=== PATIENT | female | born 1935 | race Caucasian/White ===

== ENCOUNTER 2018-03-28 12:30 | Outpatient (RCR) | payer MEDICARE, BC, SELFPAY ==
--- NOTE | 2018-02-28 08:21 | OT.OP.TRT ---
On February 22, 2018 our therapy services consisting of Speech, Occupational, and Physical therapy transitioned from [employer] electronic documentation system to a new [employer] electronic system. All documentation prior to February 22 can be found under [employer] saved data. From February 22 forward, all medical record documentation will be in [employer] 6.1.
--- NOTE | 2018-03-14 13:42 | OT.OP.TRT ---
Visit Care Team Role Provider Type Idalia Bashir MD Attending Provider Physician Family Provider Primary Care Provider Specialty: Internal Medicine Address: [address] [place] [address], [id number] Email: Occupational Therapy Treatment Note OT Outpatient Treatment Note - Adult Start: 02/28/18 06:33 Freq: Status: Active Protocol: Document 03/14/18 13:27 AMS (Rec: 03/14/18 13:42 AMS [id number]) OT Outpatient Adult Treatment Note Session Time Visit Start Time 12:30 Visit Stop Time 01:20 Total Visit Minutes 50 Visit Information Visit Number 04/[id number] Plan of Care Dates 01/17/2018-04/10/2018 Insurance Information Medicare - G Codes Required Setting Treatment Setting Outpatient Care Visit Type Note Type Treatment Note - Subjective Identification Type Name Identification Reconciled With Medical Record Observations I had a hard time managing the large breakfast sandwich I had ordered down at [employer] per Michela. Chief Complaint(s) Restricts Patient/Caregiver Compliance with Home Good Exercise Program - Objective Objective Measurements Refer to progress towards meeting goals. Short Term Goals 1. Pt will be able to oppose left thumb to all digit pads of the left hand (2-5) x 2 cycles w/ increased time and concentration w/ max v.c. 2. Pt will be able to isolate second and third digits w/ the left hand w/ wrist extended, 8 out of 10 trials, w/ max verbal/visual cues. 02/28/18= Unable to isolate *GOAL MET Pt stacked 5 plates w/ the L hand while seated w/ increased time and mod v.c. for motor planning. *MET= . w/ modification (L hand pushed plate against R hand for stabilization of grasp) *GOAL MET Pt completed 9-Hole Peg Test with left hand under 1 min and 30 seconds. *MET= (1 min 26 sec). Mcc Goals 1. Based on self-report, pt will be drink from personal water bottle utilizing the left hand on daily basis w/ mod I w/ increased time and concentration. 2. Based on self-report, pt will be able to open screw-top containers with the left hand w/ simple meal preparation w/ mod I and increased time and concentration (e.g., opening and closing peanut butter jar) . 03/14/18= NEW GOAL 3. Based on self-report, pt will be able to slice/cut food w/ self-feeding w/ mod I and w/ increased time and concentration w/ active incorporation of the left hand . 03/14/18= 25% of goal met. 4. Pt will be mod I w/ HEP utilizing provided visual and written instructions. 03/14/18= NEW GOAL. 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 MET= *GOAL MET Based on self-report , pt has prepared simple meal for breakfast, with active incorporation of the L hand w/ mod I, w/ increased time and concentration. MET= 03/14/18 - Treatment 4 Descriptor Bimanual coordination Cane Visual Cues Max Cues Verbal Cues Max Cues 3 Descriptor Fine Motor Planning Digit Isolation 9-Hole Peg Test 2 Descriptor Object Manipulation Rotation Translation Shift 1 Descriptor Functional Activities - Self Care Opening and Closing Containers Managing different sized containers/items - Assessment Patient Response to Treatment Good Rehab Potential Good Impairments Identified ADLs Coordination/Dexterity Functional Activities Memory Motor Function Weakness Posture Range of Motion Recreational Activities Meaningful Activities Spasticity Stiffness Motor Planning Eye-Hand Coordination Comment Improving Assessment of Overall Progress Improving Assessment of Improvement Improving functional use of the left hand; this is evidenced by pt meeting goals on treatment date (e.g., including managing associate professor of library science, completing simple meal prep). Improving fine motor coordination; this is evidenced by pt meeting goal for 9-Hole Peg Test. Home Exercise Program Recommended working on opening and closing containers with the left hand (e.g., peanut butter jar). Recommended functional incorporation of the left hand on daily basis. Reviewed with Patient/Caregiver Goals Progress Being Made Home Exercise Program Patient/Caregiver Understanding Good - Plan Therapy Recommendations Advance per Rehabilitation Protocol Decrease Frequency of Rehabilitation Additional Therapy Recommendations Reduce frequency to 1 x every 2 weeks due to insurance limitations Please Sign and Return: I have reviewed this Plan of Care and certify that the skilled therapy services above are required to meet the patient???s needs. Physician Signature Date Printed Name and Credentials Clinical Instructor Signature Printed Name and Credentials
--- NOTE | 2018-03-28 14:57 | OT.OP.DC ---
Visit Care Team Role Provider Type Idalia Bashir MD Attending Provider Physician Family Provider Primary Care Provider Address: [address] [place] [address], [id number] Email: OT Outpatient OT Outpatient Treatment Note - Adult Start: 02/28/18 06:33 Freq: Status: Active Protocol: Document 03/28/18 14:39 AMS (Rec: 03/28/18 14:57 AMS [id number]) OT Outpatient Adult Treatment Note Session Time Visit Start Time 12:35 Visit Stop Time 01:20 Total Visit Minutes 45 Visit Information Visit Number 05/[id number] Plan of Care Dates 01/17/2018-04/10/2018 Insurance Information Medicare - G Codes Required Setting Treatment Setting Outpatient Care Visit Type Note Type Treatment Note - Subjective Identification Type Name Identification Reconciled With Medical Record Observations I feel like this is a good time for me to work on the things you have given me. I just need to make sure I make time to do the exercises per Michela. Chief Complaint(s) Restricts Patient/Caregiver Compliance with Home Good Exercise Program - Objective Objective Measurements See below. 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 Short Term Goals ALL GOALS DISCHARGED; PT DISCHARGING TO HEP: 1. Pt will be able to oppose left thumb to all digit pads of the left hand (2-5) x 2 cycles w/ increased time and concentration w/ max v.c. =25% met. 2. Pt will be able to isolate second and third digits w/ the left hand w/ wrist extended, 8 out of 10 trials, w/ max verbal/visual cues. 03/28/18= Unable *GOALS MET Pt stacked 5 plates w/ the L hand while seated w/ increased time and mod v.c. for motor planning. *MET= 02/28/18 w/ modification (L hand pushed plate against R hand for stabilization of grasp) Pt completed 9-Hole Peg Test w / L hand under 1 min and 30 seconds. *MET= 03/14/18 (1 min 26 sec). Print Shop Manager Goals ALL GOALS DISCHARGED; PT DISCHARGING TO HEP: 1. Based on self-report, pt will be drink from personal water bottle utilizing the left hand on daily basis w/ mod I w/ increased time and concentration. 03/28/18= 25% met . 2. Based on self-report, pt will be able to open screw-top containers with the left hand w/ simple meal preparation w/ mod I and increased time and concentration (e.g., opening and closing peanut butter jar) . 03/28/18= 50% met. 3. Based on self-report, pt will be able to slice/cut food w/ self-feeding w/ mod I and w/ increased time and concentration w/ active incorporation of the left hand . 03/28/18= 25% of goal met. Dependent upon food being cut GOALS MET: Pt mod I w/ HEP utilizing provided visual and written instructions. 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 MET= 03/14/18 Based on self-report, pt has prepared simple meal for breakfast, with active incorporation of the L hand w/ mod I, w/ increased time and concentration. MET= 03/14/18 - Treatment 4 Descriptor Bimanual coordination Cane 3 Descriptor Fine Motor Planning Digit Isolation 2 Descriptor Object Manipulation 1 Descriptor Functional Activities - Self Care - Assessment Patient Response to Treatment Good Rehab Potential Good Impairments Identified ADLs Coordination/Dexterity Functional Activities Memory Motor Function Weakness Posture Range of Motion Recreational Activities Meaningful Activities Spasticity Stiffness Motor Planning Eye-Hand Coordination Comment Improving Assessment of Overall Progress Improving Assessment of Improvement Pt has made progress since time of initial evaluation in the areas of active range of motion, motor coordination, motor planning, and functional use of the left hand. This is evidenced by pt meeting goals in these areas. 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 Pt is currently mod I w/ HEP. It is recommended that pt be discharged to [facility] given yearly insurance limitations. Recommend follow-up as needed/ as prescribed by PCP to upgrade HEP and/or address additional functional limitations identified by pt. Pt in agreement to d/c to [facility] at this time. Home Exercise Program Written instructions provided for current HEP. Copy of HEP placed in paper chart. All questions were answered. Focus on functional activities w/ incorporation of the left hand /upper extremity. Reviewed with Patient/Caregiver Goals Progress Being Made Home Exercise Program Patient/Caregiver Understanding Good - Plan Therapy Recommendations Discharge to Home Exercise Program Discharge from Occupational Therapy Additional Therapy Recommendations Discharge to HEP given insurance restrictions for yr. Focus on current HEP Please Sign and Return: I have reviewed this Plan of Care and certify that the skilled therapy services above are required to meet the patient?s needs. Physician Signature Date Printed Name and Credentials Clinical Instructor Signature Printed Name and Credentials
== END 2018-07-13 14:06 ==
LOC: OT 12:30
PROVIDERS: Family Provider Internal Medicine; PCP Internal Medicine; Visit Provider Internal Medicine
DX: I63.9 Cerebral infarction, unspecified (principal); R27.8 Other lack of coordination; M62.81 Muscle weakness (generalized)
CPT/HCPCS: 97530; 97535

== ENCOUNTER 2018-10-23 10:58 | Emergency (ER) | payer MEDICARE, BC, SELFPAY ==
--- NOTE | 2018-10-23 11:21 | ED.GENADULT ---
HPI - General Adult General Stated complaint: LEG CRAMPS/UNABLE TO GET UP Time Seen by Provider: 10/23/18 11:20
[2018-10-23 11:24] VITALS: BP 162/81; PULSE 105; RESP 20; TEMP 36.6; O2SAT 98
--- NOTE | 2018-10-23 12:03 | PC.NURSE ---
Patient reports two nights of leg cramps waking her up in the middle of the night. Patient has sciatica on right leg which she normally uses marijuana for but has been out of normal stuff for four days reporting increase in pain in right sciatic nerve. Patient also reports concerns of a fungal infection in folds of abd and groin.
[2018-10-23 12:06] LABS: Add Manual Diff / Slide Review NO; Basophils Percent Auto 0.5 % (0-2); Eosinophils Percent Auto 2.5 % (2-4); Hematocrit 41.7 % (36-46); Hemoglobin 14.4 g/dL (12.0-16.0); Lymphocytes Percent Auto 37.8 % (25-40); Mean Corpuscular HGB Conc 34.5 % (30-36); Mean Corpuscular Volume 89.9 fL (80-100); Monocytes Percent Auto 8.7 % (3-14); Neutrophils Absolute Auto 3700 /uL (1500-7000); Neutrophils Percent Auto 50.5 % (50-75); Platelet Count 250 X10^3/uL (150-400); Red Blood Cell Count 4.64 X10^6/uL (4.0-5.2); White Blood Cell Count 7.3 X10^3/uL (4.5-11.0)
--- NOTE | 2018-10-23 12:07 | ED.LOWEXIN ---
HPI - Extremity Injury (Lower) <BALDEMAR Markham - Last Filed: 10/23/18 22:05> General Chief Complaint: Extremity Injury, Lower Stated Complaint: LEG CRAMPS/UNABLE TO GET UP Time Seen by Provider: 10/23/18 11:20 Source: patient Mode of arrival: ambulatory Limitations: no limitations History of Present Illness HPI Narrative: 83-year-old female with history of sciatica and is a nonsmoker here for complaint of having bilateral leg cramps over the past few days at night. She does state that she has had decreased p.o. intake over the past several days due to her power being out. She states that she now has food in the house and has power and is eating better and reports that she may not have been drinking enough fluids. She denies any trauma to the legs. She is able to ambulate into the emergency room. She denies any other concerns or complaints at this time. Review of Systems <BALDEMAR Markham - Last Filed: 10/23/18 22:05> Constitutional Denies chills, Denies fever(s), Denies lethargy and Denies weakness Eyes Denies change in vision, Denies eye discharge, Denies irritation and Denies loss of vision ENT Ears, Nose, Mouth, and Throat: Denies change in voice, Denies neck pain and Denies sore throat Cardiovascular Denies chest pain, Denies irregular heart rhythm, Denies lightheadedness, Denies palpitations, Denies dyspnea, Denies dyspnea on exertion and Denies orthopnea Respiratory Denies cough, Denies dyspnea, Denies dyspnea on exertion and Denies wheezing Gastrointestinal Gastrointestinal: Denies abdominal pain, Denies change in bowel habits, Denies diarrhea, Denies nausea and Denies vomiting Genitourinary Denies hematuria, Denies flank pain, Denies urinary incontinence and Denies urinary urgency Musculoskeletal Denies neck pain Comments: Bilateral lower leg cramps Integumentary/Breasts Denies pruritus, Denies erythema, Denies rash and Denies wounds Neurologic Denies confusion, Denies loss of vision and Denies weakness Psychiatric Denies anxiety, Denies confusion, Denies depression, Denies homicidal ideation and Denies suicidal ideation Endocrine Denies palpitations Hematologic/Lymphatic Denies easy bruising Allergic/Immunologic Denies wheezing Exam <BALDEMAR Markham - Last Filed: 10/23/18 22:05> Initial Vital Signs Initial Vital Signs: Vital Signs Temperature 98 F 10/23/18 11:24 Pulse Rate 105 H 10/23/18 11:24 Respiratory Rate 20 10/23/18 11:24 Blood Pressure 162/81 H 10/23/18 11:24 Pulse Oximetry 98 10/23/18 11:24 Const General: cooperative and well developed Nutritional Appearance: well nourished Orientation: alert, awake, oriented x3 and not confused [facility] Mouth: oral mucosae normal and mucous membranes abnormal Eyes Conjunctivae: conjunctivae normal Sclera: sclerae normal Pupils: PERRL EOM: EOM intact bilaterally Resp Effort & Inspection: normal respiratory effort, able to speak in complete sentences, no respiratory distress and no use of accessory muscles Auscultation: clear to auscultation bilaterally, no rales, no rhonchi and no wheezes Cardio Rate: regular rate Rhythm: regular rhythm Heart Sounds: no click, no gallops, no murmurs and no rubs Pulses: normal peripheral pulses GI Inspection: non-distended Palpation: soft, no hepatosplenomegaly, No guarding, No pulsatile mass and No tender Auscultation: normal bowel sounds Skin General: no rashes or lesions noted, No jaundice and No petechiae Neuro General: alert, oriented x3, gait normal and no focal motor deficits Speech: speech normal Extrem Right lower extremity: normal to inspection, full ROM and normal capillary refill; no edema Left lower extremity: normal to inspection, full ROM and normal capillary refill; no edema Other: Bilateral lower extremities with distal pulses intact. No erythema. No swelling. <Yimi Luna DO - Last Filed: 10/26/18 08:34> Initial Vital Signs Initial Vital Signs: Vital Signs Temperature 98 F 10/23/18 11:24 Pulse Rate 105 H 10/23/18 11:24 Respiratory Rate 20 10/23/18 11:24 Blood Pressure 162/81 H 10/23/18 11:24 Pulse Oximetry 98 10/23/18 11:24 Course <BALDEMAR Markham - Last Filed: 10/23/18 22:05> Orders Ordered: Discontinued Medications Sodium Chloride (Normal Saline 0.9%) 1,000 mls @ 1,000 mls/hr IV BOLUS ONE Stop: 10/23/18 13:13 Last Admin: 10/23/18 12:30 Dose: 1,000 mls/hr Vital Signs - 8 hr 10/23/18 11:24 Temperature 98 F Pulse Rate 105 H Respiratory Rate 20 Blood Pressure 162/81 H Pulse Oximetry 98 <Yimi Luna DO - Last Filed: 10/26/18 08:34> Orders Ordered: Discontinued Medications Sodium Chloride (Normal Saline 0.9%) 1,000 mls @ 1,000 mls/hr IV BOLUS ONE Stop: 10/23/18 13:13 Last Admin: 10/23/18 12:30 Dose: 1,000 mls/hr Vital Signs - 8 hr 10/23/18 11:24 Temperature 98 F Pulse Rate 105 H Respiratory Rate 20 Blood Pressure 162/81 H Pulse Oximetry 98 MDM - Extremity Injury (Lower) <BALDEMAR Markham - Last Filed: 10/23/18 22:05> Lab Data Result diagrams: 10/23/18 12:00 10/23/18 12:00 Lab Results 10/23/18 10/23/18 Range/Units 12:00 12:00 WBC 7.3 (4.5-11.0) X10^3/uL RBC 4.64 (4.0-5.2) X10^6/uL Hgb 14.4 (12.0-16.0) g/dL Hct 41.7 (36-46) % MCV 89.9 (80-100) fL MCH 31.0 (26-34) PG MCHC 34.5 (30-36) % RDW 14.0 (11.6-14.8) % Plt Count 250 (150-400) X10^3/uL Neut % (Auto) 50.5 (50-75) % Lymph % (Auto) 37.8 (25-40) % [place] % (Auto) 8.7 (3-14) % Eos % (Auto) 2.5 (2-4) % Baso % (Auto) 0.5 (0-2) % Neut # (Auto) 3700 (3168-6538) /uL Sodium 142 (137-145) mmol/L Potassium 4.4 (3.4-5.1) mmol/L Chloride 107 (98-107) mmol/L Carbon Dioxide 25 (22-32) mmol/L BUN 15 (7-17) mg/dL Creatinine 1.10 H (0.52-1.04) mg/dL Estimated GFR 47.4 L (>60) mL/min BUN/Creatinine Ratio 13.6 (6-22) Glucose 104 (80-110) mg/dL Calcium 9.7 (8.4-10.2) mg/dL Phosphorus 3.9 (2.8-4.1) mg/dL Magnesium 2.2 (1.6-2.3) mg/dL Total Creatine Kinase 475 H (30-135) U/L Urine Dip Bedside Urine Glucose Negative Bedside Urine Bilirubin - Negative Bedside Urine Ketone - Negative Urine Specific Moore 1.010 Bedside Urine Occult Blood - Negative Bedside Urine pH 6.0 Bedside Urine Protein - Negative Bedside Urine Urobilinogen - Negative Bedside Urine Nitrite - Negative Bedside Urine Leukocytes - Negative Esterase MDM Narrative Medical decision making narrative: CBC was obtained was unremarkable. Chemistry shows elevated creatinine of 1.1 and mildly decreased GFR 47.4. Her CK was elevated at 475. She was given fluids in the emergency room in believe that she has not been drinking enough fluids causing dehydration. She is encouraged to have a balanced diet with plenty of fluids. Follow up with primary care provider this week. Return emergency room for any worsening symptoms. <Yimi Luna, - Last Filed: 10/26/18 08:34> Lab Data Lab Results 10/23/18 10/23/18 Range/Units 12:00 12:00 WBC 7.3 (4.5-11.0) X10^3/uL RBC 4.64 (4.0-5.2) X10^6/uL Hgb 14.4 (12.0-16.0) g/dL Hct 41.7 (36-46) % MCV 89.9 (80-100) fL MCH 31.0 (26-34) PG MCHC 34.5 (30-36) % RDW 14.0 (11.6-14.8) % Plt Count 250 (150-400) X10^3/uL Neut % (Auto) 50.5 (50-75) % Lymph % (Auto) 37.8 (25-40) % [place] % (Auto) 8.7 (3-14) % Eos % (Auto) 2.5 (2-4) % Baso % (Auto) 0.5 (0-2) % Neut # (Auto) 3700 (7769-5474) /uL Sodium 142 (137-145) mmol/L Potassium 4.4 (3.4-5.1) mmol/L Chloride 107 (98-107) mmol/L Carbon Dioxide 25 (22-32) mmol/L BUN 15 (7-17) mg/dL Creatinine 1.10 H (0.52-1.04) mg/dL Estimated GFR 47.4 L (>60) mL/min BUN/Creatinine Ratio 13.6 (6-22) Glucose 104 (80-110) mg/dL Calcium 9.7 (8.4-10.2) mg/dL Phosphorus 3.9 (2.8-4.1) mg/dL Magnesium 2.2 (1.6-2.3) mg/dL Total Creatine Kinase 475 H (30-135) U/L Urine Dip Bedside Urine Glucose Negative Bedside Urine Bilirubin - Negative Bedside Urine Ketone - Negative Urine Specific Moore 1.010 Bedside Urine Occult Blood - Negative Bedside Urine pH 6.0 Bedside Urine Protein - Negative Bedside Urine Urobilinogen - Negative Bedside Urine Nitrite - Negative Bedside Urine Leukocytes - Negative Esterase Discharge Plan Departure Patient Disposition: Home Clinical Impression: Bilateral leg cramps Discharge Date/Time: 10/23/18 13:45 Interventions: ED Discharge Assessment Last Done: 10/23/18 13:45 Instructions: DI for Nocturnal Leg Cramps Activity Restrictions/Additional Instructions: Laboratory results today showed decreased kidney function most likely secondary to dehydration. Ensure you are eating well balanced meals and plenty of fluids. Performs stretching exercises to the calves. Use [id number] Tylenol as needed for any discomfort. Follow up with her primary care provider later this week. Return emergency room for any worsening symptoms. Referrals: Idalia Bashir MD [Primary Care Provider] - <Yimi Luna DO - Last Filed: 10/26/18 08:34> Cosign ED Attending Elanaature Attestation: I was available for consultation during this patient's emergency department encounter
[2018-10-23 12:16] LABS: BUN Creatinine Ratio 13.6 (6-22); Blood Urea Nitrogen 15 mg/dL (7-17); Calcium 9.7 mg/dL (8.4-10.2); Carbon Dioxide 25 mmol/L (22-32); Chloride 107 mmol/L (98-107); Creatine Kinase 475 U/L (30-135); Estimated Glomerular Filt Rate 47.4 mL/min (>60); Glucose 104 mg/dL (80-110); HEMOLYSIS < 15 (0-50); Magnesium 2.2 mg/dL (1.6-2.3); Phosphorous 3.9 mg/dL (2.8-4.1); Potassium 4.4 mmol/L (3.4-5.1); Sodium 142 mmol/L (137-145)
--- NOTE | 2018-10-23 12:17 | ED_ITS ---
HPI - Extremity Injury (Lower) <BALDEMAR Markham - Last Filed: 10/23/18 22:05> General Chief Complaint: Extremity Injury, Lower Stated Complaint: LEG CRAMPS/UNABLE TO GET UP Time Seen by Provider: 10/23/18 11:20 Source: patient Mode of arrival: ambulatory Limitations: no limitations History of Present Illness HPI Narrative: 83-year-old female with history of sciatica and is a nonsmoker here for complaint of having bilateral leg cramps over the past few days at night. She does state that she has had decreased p.o. intake over the past several days due to her power being out. She states that she now has food in the house and has power and is eating better and reports that she may not have been drinking enough fluids. She denies any trauma to the legs. She is able to ambulate into the emergency room. She denies any other concerns or complaints at this time. Review of Systems <BALDEMAR Markham - Last Filed: 10/23/18 22:05> Constitutional Denies chills, Denies fever(s), Denies lethargy and Denies weakness Eyes Denies change in vision, Denies eye discharge, Denies irritation and Denies loss of vision ENT Ears, Nose, Mouth, and Throat: Denies change in voice, Denies neck pain and Denies sore throat Cardiovascular Denies chest pain, Denies irregular heart rhythm, Denies lightheadedness, Denies palpitations, Denies dyspnea, Denies dyspnea on exertion and Denies orthopnea Respiratory Denies cough, Denies dyspnea, Denies dyspnea on exertion and Denies wheezing Gastrointestinal Gastrointestinal: Denies abdominal pain, Denies change in bowel habits, Denies diarrhea, Denies nausea and Denies vomiting Genitourinary Denies hematuria, Denies flank pain, Denies urinary incontinence and Denies urinary urgency Musculoskeletal Denies neck pain Comments: Bilateral lower leg cramps Integumentary/Breasts Denies pruritus, Denies erythema, Denies rash and Denies wounds Neurologic Denies confusion, Denies loss of vision and Denies weakness Psychiatric Denies anxiety, Denies confusion, Denies depression, Denies homicidal ideation and Denies suicidal ideation Endocrine Denies palpitations Hematologic/Lymphatic Denies easy bruising Allergic/Immunologic Denies wheezing Exam <BALDEMAR Markham - Last Filed: 10/23/18 22:05> Initial Vital Signs Initial Vital Signs: Vital Signs Temperature 98 F 10/23/18 11:24 Pulse Rate 105 H 10/23/18 11:24 Respiratory Rate 20 10/23/18 11:24 Blood Pressure 162/81 H 10/23/18 11:24 Pulse Oximetry 98 10/23/18 11:24 Const General: cooperative and well developed Nutritional Appearance: well nourished Orientation: alert, awake, oriented x3 and not confused [facility] Mouth: oral mucosae normal and mucous membranes abnormal Eyes Conjunctivae: conjunctivae normal Sclera: sclerae normal Pupils: PERRL EOM: EOM intact bilaterally Resp Effort & Inspection: normal respiratory effort, able to speak in complete sentences, no respiratory distress and no use of accessory muscles Auscultation: clear to auscultation bilaterally, no rales, no rhonchi and no wheezes Cardio Rate: regular rate Rhythm: regular rhythm Heart Sounds: no click, no gallops, no murmurs and no rubs Pulses: normal peripheral pulses GI Inspection: non-distended Palpation: soft, no hepatosplenomegaly, No guarding, No pulsatile mass and No tender Auscultation: normal bowel sounds Skin General: no rashes or lesions noted, No jaundice and No petechiae Neuro General: alert, oriented x3, gait normal and no focal motor deficits Speech: speech normal Extrem Right lower extremity: normal to inspection, full ROM and normal capillary refill; no edema Left lower extremity: normal to inspection, full ROM and normal capillary refill ; no edema Other: Bilateral lower extremities with distal pulses intact. No erythema. No swelling. <Yimi Luna DO - Last Filed: 10/26/18 08:34> Initial Vital Signs Initial Vital Signs: Vital Signs Temperature 98 F 10/23/18 11:24 Pulse Rate 105 H 10/23/18 11:24 Respiratory Rate 20 10/23/18 11:24 Blood Pressure 162/81 H 10/23/18 11:24 Pulse Oximetry 98 10/23/18 11:24 Course <BALDEMAR Markham - Last Filed: 10/23/18 22:05> Orders Ordered: Discontinued Medications Sodium Chloride (Normal Saline 0.9%) 1,000 mls @ 1,000 mls/hr IV BOLUS ONE Stop: 10/23/18 13:13 Last Admin: 10/23/18 12:30 Dose: 1,000 mls/hr Vital Signs - 8 hr 10/23/18 11:24 Temperature 98 F Pulse Rate 105 H Respiratory Rate 20 Blood Pressure 162/81 H Pulse Oximetry 98 <Yimi Luna DO - Last Filed: 10/26/18 08:34> Orders Ordered: Discontinued Medications Sodium Chloride (Normal Saline 0.9%) 1,000 mls @ 1,000 mls/hr IV BOLUS ONE Stop: 10/23/18 13:13 Last Admin: 10/23/18 12:30 Dose: 1,000 mls/hr Vital Signs - 8 hr 10/23/18 11:24 Temperature 98 F Pulse Rate 105 H Respiratory Rate 20 Blood Pressure 162/81 H Pulse Oximetry 98 MDM - Extremity Injury (Lower) <BALDEMAR Markham - Last Filed: 10/23/18 22:05> Lab Data Result diagrams: 10/23/18 12:00 10/23/18 12:00 Lab Results 10/23/18 10/23/18 Range/Units 12:00 12:00 WBC 7.3 (4.5-11.0) X10^3/uL RBC 4.64 (4.0-5.2) X10^6/uL Hgb 14.4 (12.0-16.0) g/dL Hct 41.7 (36-46) % MCV 89.9 (80-100) fL MCH 31.0 (26-34) PG MCHC 34.5 (30-36) % RDW 14.0 (11.6-14.8) % Plt Count 250 (150-400) X10^3/uL Neut % (Auto) 50.5 (50-75) % Lymph % (Auto) 37.8 (25-40) % [place] % (Auto) 8.7 (3-14) % Eos % (Auto) 2.5 (2-4) % Baso % (Auto) 0.5 (0-2) % Neut # (Auto) 3700 (0216-4271) /uL Sodium 142 (137-145) mmol/L Potassium 4.4 (3.4-5.1) mmol/L Chloride 107 (98-107) mmol/L Carbon Dioxide 25 (22-32) mmol/L BUN 15 (7-17) mg/dL Creatinine 1.10 H (0.52-1.04) mg/dL Estimated GFR 47.4 L (>60) mL/min BUN/Creatinine Ratio 13.6 (6-22) Glucose 104 (80-110) mg/dL Calcium 9.7 (8.4-10.2) mg/dL Phosphorus 3.9 (2.8-4.1) mg/dL Magnesium 2.2 (1.6-2.3) mg/dL Total Creatine Kinase 475 H (30-135) U/L Urine Dip Bedside Urine Glucose Negative Bedside Urine Bilirubin - Negative Bedside Urine Ketone - Negative Urine Specific Len[place] 1.010 Bedside Urine Occult Blood - Negative Bedside Urine pH 6.0 Bedside Urine Protein - Negative Bedside Urine Urobilinogen - Negative Bedside Urine Nitrite - Negative Bedside Urine Leukocytes - Negative Esterase MDM Narrative Medical decision making narrative: CBC was obtained was unremarkable. Chemistry shows elevated creatinine of 1.1 and mildly decreased GFR 47.4. Her CK was elevated at 475. She was given fluids in the emergency room in believe that she has not been drinking enough fluids causing dehydration. She is encouraged to have a balanced diet with plenty of fluids. Follow up with primary care provider this week. Return emergency room for any worsening symptoms. <Yimi Luna, - Last Filed: 10/26/18 08:34> Lab Data Lab Results 10/23/18 10/23/18 Range/Units 12:00 12:00 WBC 7.3 (4.5-11.0) X10^3/uL RBC 4.64 (4.0-5.2) X10^6/uL Hgb 14.4 (12.0-16.0) g/dL Hct 41.7 (36-46) % MCV 89.9 (80-100) fL MCH 31.0 (26-34) PG MCHC 34.5 (30-36) % RDW 14.0 (11.6-14.8) % Plt Count 250 (150-400) X10^3/uL Neut % (Auto) 50.5 (50-75) % Lymph % (Auto) 37.8 (25-40) % [place] % (Auto) 8.7 (3-14) % Eos % (Auto) 2.5 (2-4) % Baso % (Auto) 0.5 (0-2) % Neut # (Auto) 3700 (5094-2246) /uL Sodium 142 (137-145) mmol/L Potassium 4.4 (3.4-5.1) mmol/L Chloride 107 (98-107) mmol/L Carbon Dioxide 25 (22-32) mmol/L BUN 15 (7-17) mg/dL Creatinine 1.10 H (0.52-1.04) mg/dL Estimated GFR 47.4 L (>60) mL/min BUN/Creatinine Ratio 13.6 (6-22) Glucose 104 (80-110) mg/dL Calcium 9.7 (8.4-10.2) mg/dL Phosphorus 3.9 (2.8-4.1) mg/dL Magnesium 2.2 (1.6-2.3) mg/dL Total Creatine Kinase 475 H (30-135) U/L Urine Dip Bedside Urine Glucose Negative Bedside Urine Bilirubin - Negative Bedside Urine Ketone - Negative Urine Specific [place] 1.010 Bedside Urine Occult Blood - Negative Bedside Urine pH 6.0 Bedside Urine Protein - Negative Bedside Urine Urobilinogen - Negative Bedside Urine Nitrite - Negative Bedside Urine Leukocytes - Negative Esterase Discharge Plan Departure Patient Disposition: Home Clinical Impression: Bilateral leg cramps Discharge Date/Time: 10/23/18 13:45 Interventions: ED Discharge Assessment Last Done: 10/23/18 13:45 Instructions: DI for Nocturnal Leg Cramps Activity Restrictions/Additional Instructions: Laboratory results today showed decreased kidney function most likely secondary to dehydration. Ensure you are eating well balanced meals and plenty of fluids. Performs stretching exercises to the calves. Use [id number] Tylenol as needed for any discomfort. Follow up with her primary care provider later this week. Return emergency room for any worsening symptoms. Referrals: Idalia Bashir MD [Primary Care Provider] - <Yimi Luna DO - Last Filed: 10/26/18 08:34> Cosign ED Attending Elanaature Attestation: I was available for consultation during this patient's emergency department encounter
[2018-10-23] MEDS: SODIUM CHLORIDE 0.9% 1,000 ML 1000 ML IV (12:30)
[2018-10-23 13:22] VITALS: BP 141/82; PULSE 93; RESP 17; O2SAT 98
--- NOTE | 2018-12-22 13:26 | PC.NURSE ---
late entry 10/23 NS 1000ML completed 1330.
== END 2018-10-23 13:45 | disposition home or self-care (01) ==
PROVIDERS: Emergency Medicine; Emergency Provider Nurse Practitioner Family; Family Provider Internal Medicine; PCP Internal Medicine
DX: R25.2 Cramp and spasm (principal)
CPT/HCPCS: 36591; 80048; 81003; 82550; 83735; 84100; 85025; 96360; 99283; 99284

== ENCOUNTER 2018-10-30 04:26 | Emergency (ER) | payer MEDICARE, BC, SELFPAY ==
[2018-10-30 04:32] VITALS: BP 160/73; PULSE 104; RESP 16; TEMP 36.9; O2SAT 94; BMI 35.4
--- NOTE | 2018-10-30 04:34 | DI.US.S_ITS ---
PROCEDURE: US PERIPH VENOUS LOW EXTREM RT INDICATIONS: RLQ pain, hx DVT TECHNIQUE: Real-time imaging, as well as color and pulse Doppler interrogation, were performed of the lower extremity deep veins from the inguinal ligament to the popliteal fossa. COMPARISON: None. FINDINGS: The deep veins are normally compressible, and free of intraluminal thrombus. Color and pulse Doppler demonstrate normal phasic intraluminal flow. There is normal augmentation response to distal compression maneuver. IMPRESSION: 1. No evidence of deep venous thrombosis in the right lower extremity. Dictated by: Bob Vale M.D. on 10/30/2018 at 12:41 Approved by: Bob Vale M.D. on 10/30/2018 at 12:41
[2018-10-30] MEDS: SODIUM CHLORIDE 0.9% 1,000 ML 1000 ML IV (04:51)
[2018-10-30 05:06] LABS: Add Manual Diff / Slide Review NO; Basophils Percent Auto 0.4 % (0-2); Eosinophils Percent Auto 2.5 % (2-4); Hematocrit 39.1 % (36-46); Hemoglobin 13.2 g/dL (12.0-16.0); Lymphocytes Percent Auto 38.2 % (25-40); Mean Corpuscular HGB Conc 33.9 % (30-36); Mean Corpuscular Hemoglobin 30.6 PG (26-34); Mean Corpuscular Volume 90.2 fL (80-100); Monocytes Percent Auto 9.9 % (3-14); Neutrophils Absolute Auto 3700 /uL (1500-7000); Platelet Count 234 X10^3/uL (150-400); Red Blood Cell Count 4.33 X10^6/uL (4.0-5.2); White Blood Cell Count 7.5 X10^3/uL (4.5-11.0)
[2018-10-30 05:11] LABS: Creatine Kinase 629 U/L (30-135)
[2018-10-30 05:12] LABS: BUN Creatinine Ratio 16.4 (6-22); Blood Urea Nitrogen 18 mg/dL (7-17); Calcium 9.4 mg/dL (8.4-10.2); Carbon Dioxide 24 mmol/L (22-32); Chloride 105 mmol/L (98-107); Estimated Glomerular Filt Rate 47.4 mL/min (>60); Glucose 117 mg/dL (80-110); HEMOLYSIS < 15 (0-50); Magnesium 2.1 mg/dL (1.6-2.3); Potassium 4.1 mmol/L (3.4-5.1); Sodium 139 mmol/L (137-145)
--- NOTE | 2018-10-30 05:17 | ED_ITS ---
HPI - Extremity Problem General Chief complaint: Extremity Problem,Nontraumatic Stated complaint: LEG PAIN Time Seen by Provider: 10/30/18 04:31 Source: patient Mode of arrival: wheelchair Limitations: no limitations History of Present Illness HPI Narrative: 83-year-old nonsmoking female presents for evaluation of ongoing leg pain and cramping. She was seen and evaluated 1 week ago for similar circumstances in received a very thorough evaluation including labs, physical exam and felt better after receiving IV fluids. She denies any injury, fever or chills. She states her legs began to cramp at night. She is here this evening because she states it is starting to feel like her right leg did when she had a DVT a few years ago. She denies any redness, swelling or warmth. MD Complaint: extremity pain Onset (ago): day(s) Pain Consistency: intermittent Location: right Relieving factors: nothing Exacerbating factors: weight bearing Associated symptoms: denies other symptoms Review of Systems Review of Systems All systems reviewed & are unremarkable except as noted in HPI and below Constitutional Denies chills, Denies fever(s), Denies lethargy and Denies weakness Eyes Denies change in vision, Denies eye discharge, Denies irritation and Denies loss of vision ENT Ears, Nose, Mouth, and Throat: Denies change in voice, Denies neck pain and Denies sore throat Cardiovascular Denies chest pain, Denies irregular heart rhythm, Denies lightheadedness, Denies palpitations, Denies dyspnea, Denies dyspnea on exertion and Denies orthopnea Respiratory Denies cough, Denies dyspnea, Denies dyspnea on exertion and Denies wheezing Gastrointestinal Gastrointestinal: Denies abdominal pain, Denies change in bowel habits, Denies diarrhea, Denies nausea and Denies vomiting Genitourinary Denies hematuria, Denies flank pain, Denies urinary incontinence and Denies urinary urgency Musculoskeletal Reports muscle cramps and Denies neck pain Integumentary/Breasts Denies pruritus, Denies erythema, Denies rash and Denies wounds Neurologic Denies confusion, Denies loss of vision and Denies weakness Psychiatric Denies anxiety, Denies confusion, Denies depression, Denies homicidal ideation and Denies suicidal ideation Endocrine Denies palpitations Hematologic/Lymphatic Denies easy bruising Allergic/Immunologic Denies wheezing [facility] Social History Smoking Status: Never smoker Exam Narrative Exam Narrative: GEN: 83-year-old female appears stated age, she is pleasant but obviously distressed by the discomfort in her legs. EYES: Pupils are equal, round, and reactive to light and accommodation. Extraoccular muscles are intact bilaterally. There is no subconjunctival hemorrhage or exudate. CHEST: Lungs are clear to auscultation bilaterally and free of wheezes, rales, or rhonchi. Heart rate is regular rhythm, there are no murmurs, clicks, rubs, or gallops. There is no chest wall tenderness. ABD: Abdomen is soft and nontender. There is no guarding or rebound. Bowel sounds are normal in all 4 quadrants. There is no mass or organomegaly. EXT: No erythema, swelling, or warmth. Patient has tenderness to palpation of posterior R calf. No tenderness along medial R thigh. No numbness or tingling. No pallor. SKIN: Warm, pink, and dry. No erythema or rash Initial Vital Signs Initial Vital Signs: Vital Signs Temperature 98.5 F 10/30/18 04:32 Pulse Rate 104 H 10/30/18 04:32 Respiratory Rate 16 10/30/18 04:32 Blood Pressure 160/73 H 10/30/18 04:32 Pulse Oximetry 94 10/30/18 04:32 Course Orders Ordered: ED Orders 10/30/18 04:34 US periph venous low extrem rt Stat 10/30/18 04:46 Basic Metabolic Panel Stat C-Reactive Protein Quant Stat Complete Blood Count AUTO DIFF Stat Erythrocyte Sedimentation Rate Stat Magnesium Stat Troponin & CK Cardiac Panel Stat Discontinued Medications Sodium Chloride (Normal Saline 0.9%) 1,000 mls @ 1,000 mls/hr IV BOLUS ONE Stop: 10/30/18 05:31 Last Admin: 10/30/18 04:51 Dose: 1,000 mls/hr Vital Signs - 8 hr 10/30/18 04:32 Temperature 98.5 F Pulse Rate 104 H Respiratory Rate 16 Blood Pressure 160/73 H Pulse Oximetry 94 MDM - Extremity (Nontraumatic) Lab Data Result diagrams: 10/30/18 04:46 10/30/18 04:46 Lab Results 10/30/18 10/30/18 10/30/18 Range/Units 04:46 04:46 04:46 WBC 7.5 (4.5-11.0) X10^3/uL RBC 4.33 (4.0-5.2) X10^6/uL Hgb 13.2 (12.0-16.0) g/dL Hct 39.1 (36-46) % MCV 90.2 (80-100) fL MCH 30.6 (26-34) PG MCHC 33.9 (30-36) % RDW 14.0 (11.6-14.8) % Plt Count 234 (150-400) X10^3/uL Neut % (Auto) 49.0 L (50-75) % Lymph % (Auto) 38.2 (25-40) % Gregory % (Auto) 9.9 (3-14) % Eos % (Auto) 2.5 (2-4) % Baso % (Auto) 0.4 (0-2) % Neut # (Auto) 3700 (2387-3265) /uL ESR 17 (0-20) MM/HR Sodium (137-145) mmol/L Potassium (3.4-5.1) mmol/L Chloride (98-107) mmol/L Carbon Dioxide (22-32) mmol/L BUN (7-17) mg/dL Creatinine (0.52-1.04) mg/dL Estimated GFR (>60) mL/min BUN/Creatinine Ratio (6-22) Glucose (80-110) mg/dL Calcium (8.4-10.2) mg/dL Magnesium (1.6-2.3) mg/dL Total Creatine Kinase 629 H (30-135) U/L CK-MB (CK-2) 4.31 H (<2.37) ng/mL CK-MB (CK-2) Rel Index 0.7 L (1.5-5.0) % Troponin I < 0.012 (0.01-0.034) ng/mL 10/30/18 10/30/18 Range/Units 04:46 04:46 WBC (4.5-11.0) X10^3/uL RBC (4.0-5.2) X10^6/uL Hgb (12.0-16.0) g/dL Hct (36-46) % MCV (80-100) fL MCH (26-34) PG MCHC (30-36) % RDW (11.6-14.8) % Plt Count (150-400) X10^3/uL Neut % (Auto) (50-75) % Lymph % (Auto) (25-40) % Gregory % (Auto) (3-14) % Eos % (Auto) (2-4) % Baso % (Auto) (0-2) % Neut # (Auto) (9332-7176) /uL ESR (0-20) MM/HR Sodium 139 (137-145) mmol/L Potassium 4.1 (3.4-5.1) mmol/L Chloride 105 (98-107) mmol/L Carbon Dioxide 24 (22-32) mmol/L BUN 18 H (7-17) mg/dL Creatinine 1.10 H (0.52-1.04) mg/dL Estimated GFR 47.4 L (>60) mL/min BUN/Creatinine Ratio 16.4 (6-22) Glucose 117 H (80-110) mg/dL Calcium 9.4 (8.4-10.2) mg/dL Magnesium 2.1 (1.6-2.3) mg/dL Total Creatine Kinase (30-135) U/L CK-MB (CK-2) (<2.37) ng/mL CK-MB (CK-2) Rel Index (1.5-5.0) % Troponin I (0.01-0.034) ng/mL Imaging Data US Extremity: Radiologist's impression: No DVT Discharge Plan Departure Patient Disposition: Home Clinical Impression: Acute leg pain Instructions: DI for Leg Pain Activity Restrictions/Additional Instructions: *You have been diagnosed with [ acute Right Leg Pain ] *What to do: *Take medications as directed *Follow up with your primary care provider in 2-3 days, call for an appointment. Let them know you were seen in the Emergency Department and that we ask that you be seen in follow up *Return to ER if you should have any new, worsening or concerning symptoms Referrals: Idalia Bashir MD [Primary Care Provider] -
[2018-10-30 05:25] LABS: Troponin I < 0.012 ng/mL (0.01-0.034)
[2018-10-30 05:26] LABS: CKMB % Relative Index 0.7 % (1.5-5.0); Creatine Kinase MB 4.31 ng/mL (<2.37)
[2018-10-30 05:32] LABS: Erythrocyte Sedimentation Rate 17 MM/HR (0-20)
[2018-10-30 05:48] VITALS: BP 154/86; PULSE 83; RESP 18; O2SAT 94
[2018-10-30 06:44] LABS: C-Reactive Protein Quant < 0.5 mg/dL (<1.0)
== END 2018-10-30 05:40 | disposition home or self-care (01) ==
PROVIDERS: Emergency Provider Emergency Medicine; Family Provider Internal Medicine; PCP Internal Medicine
DX: M79.604 Pain in right leg (principal)
CPT/HCPCS: 36591; 80048; 82550; 82553; 83735; 84484; 85025; 85651; 86140; 93971; 96360; 99283; 99284

== ENCOUNTER → 2019-01-31 08:04 | Outpatient (CLI) | payer MEDICARE, SELFPAY ==
[2019-01-31 09:15] LABS: Hemoglobin A1C% w Est Avg Glu 5.8 % (4.0-6.0)
[2019-01-31 09:55] LABS: Alanine Aminotransferase 24 IU/L (9-52); Aspartate Aminotransferase 22 IU/L (14-36); Blood Urea Nitrogen 16 mg/dL (7-17); Calcium 9.5 mg/dL (8.4-10.2); Carbon Dioxide 27 mmol/L (22-32); Chloride 103 mmol/L (98-107); Cholesterol 179 mg/dL (140-199); Glucose 104 mg/dL (80-110); HEMOLYSIS < 15 (0-50); Potassium 4.5 mmol/L (3.4-5.1); Sodium 140 mmol/L (137-145); Triglycerides 98 mg/dL (35-150)
[2019-01-31 10:11] LABS: HDL Cholesterol 55 mg/dL (40-60); LDL Cholesterol Calculated 104 mg/dL (<100)
== END ==
PROVIDERS: PCP Internal Medicine; Visit Provider Internal Medicine
DX: E78.5 Hyperlipidemia, unspecified (principal); E11.9 Type 2 diabetes mellitus without complications; N18.3 Chronic kidney disease, stage 3 (moderate)
CPT/HCPCS: 36415; 80048; 80061; 83036; 84450; 84460

== ENCOUNTER → 2019-02-21 12:40 | Outpatient (CLI) | payer MEDICARE, SELFPAY | PROVIDERS: PCP Internal Medicine; Visit Provider Internal Medicine | DX: M85.852 Other specified disorders of bone density and structure, left thigh (principal); Z78.0 Asymptomatic menopausal state; E07.9 Disorder of thyroid, unspecified; Z90.722 Acquired absence of ovaries, bilateral | CPT/HCPCS: 77080 ==

== ENCOUNTER → 2019-03-09 12:51 | Outpatient (CLI) | payer MEDICARE, BC, SELFPAY ==
--- NOTE | 2019-03-09 | DI.MRI.S_ITS ---
PROCEDURE: MR LUMBAR SPINE WO CON INDICATIONS: PAIN IN RIGHT HIP TECHNIQUE: Noncontrast sagittal T1 spin echo and T2 fast echo, sagittal STIR, axial T1 and T2 fast spin echo through the lumbar spine. In cases with scoliosis, additional coronal T2 fast spin echo may be performed. COMPARISON: None. FINDINGS: Image quality: Excellent. Alignment and Curvature: There is in grade 1 anterolisthesis of L3 on L4. Bone Marrow: Large Schmorl's node involving inferior endplate of L3 vertebral body is seen. No marrow edema. No acute vertebral body compression fractures. Spinal Cord: Conus medullaris terminates at the T12-L1 level. Visualized cord demonstrates normal signal and size. Paraspinous Soft Tissues: No paravertebral masses. L1-L2: Diffuse disc bulge, bilateral facet arthrosis and hypertrophy of ligamentum flavum is seen. Decreased intervertebral disc space and disc desiccation signal is also noted. There is moderate central canal stenosis and left worse than right bilateral neuroforaminal narrowing. There is likely compression of the exiting left L1 nerve root. L2-L3: Decreased intervertebral disc space and desiccation signal is seen. Broad-based disc bulge and bilateral facet arthrosis with hypertrophy of ligamentum flavum is noted. There is mild to moderate central canal stenosis and mild bilateral neuroforaminal narrowing. L3-L4: There is decreased intervertebral disc space and disc desiccation. Broad-based disc bulge and bilateral facet arthrosis with hypertrophy of ligamentum flavum is seen causing severe central canal stenosis and left worse than right bilateral neuroforaminal narrowing. There is likely compression of bilateral L3 and L4 nerve roots. L4-L5: There is near-complete loss of intervertebral disc space and partial bony union at this level. Bilateral facet arthrosis and hypertrophy of ligamentum flavum is seen causing mild/moderate central canal stenosis and mild bilateral neuroforaminal narrowing. L5-S1: Normal appearance. IMPRESSION: 1. 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 No acute compression fracture. A large Schmorl's node in inferior endplate of L3. Partial bony union at L4-5 level. 2. Degenerative disc bulge and bilateral facet arthrosis throughout lumbar spine causing moderate to severe central canal stenosis and bilateral neuroforaminal narrowing most prominent at L3-4 level as above. Dictated by: Momo Chawla M.D. on 03/09/2019 at 14:22 Approved by: Momo Chawla M.D. on 03/09/2019 at 14:37
== END ==
PROVIDERS: PCP Internal Medicine; Visit Provider Orthopaedic Surgery
DX: M25.551 Pain in right hip (principal); M47.816 Spondylosis without myelopathy or radiculopathy, lumbar region; M48.061 Spinal stenosis, lumbar region without neurogenic claudication; M51.36 Other intervertebral disc degeneration, lumbar region; M51.46 Schmorl's nodes, lumbar region; M43.16 Spondylolisthesis, lumbar region
CPT/HCPCS: 72148

== ENCOUNTER 2019-05-23 20:23 | Observation (INO) | payer MEDICARE, BC, SELFPAY ==
--- NOTE | 2019-05-23 | DI.ECHO.S_ITS ---
[place] +---------+ Hospital +---------+ : : [address] : : : : [id number] : : : : Phone: [phone] Echocardiogram Report + + :Name: ANITA FRANKLIN Study Date: 05/24/2019 Height: 63 in : :[facility] Weight: 220 lb : : Gender: Female BSA: 2.0 m2 : :: 1935 Age: 83 yrs BP: 128/81 mmHg: :Reason For Study: SYNCOPAL EPISODE : :Ordering Physician: Suresh : :Hospitalist Performed By: Deepa Whitt : :Referring: JELANI LEVIN : + + Interpretation Summary The left ventricular cavity is small. Left ventricular systolic function is normal without focal wall motion abnormalities. The ejection fraction is estimated to be 65-70%. LV ejection fraction has remained stable since prior study. Diastolic parameters suggest a relaxation abnormality of the left ventricle, consistent with probable normal filling pressures. The right ventricle grossly appears normal in size with probable normal systolic function. Right ventricular systolic pressure is estimated to be 19 mmHg plus the clinically estimated CVP which cannot be estimated on this exam. The left atrial size is normal. Right atrial size is normal. There is mild aortic stenosis. The calculated aortic valve area is 1.6 cm2. There has been no significant change since the previous study. There is no other significant valvular heart disease. The aortic root is normal size. Procedure: A two-dimensional transthoracic echocardiogram with color flow and Doppler was performed. The study quality was technically difficult. Comparison is made with the echocardiogram of 11/29/17. The patient was in normal sinus rhythm during the exam. Left Ventricle: The left ventricular cavity is small. Proximal septal thickening is noted. Left ventricular systolic function is normal without focal wall motion abnormalities. The ejection fraction is estimated to be 65- 70%. Diastolic parameters suggest a relaxation abnormality of the left ventricle, consistent with probable normal filling pressures. Right Ventricle: The right ventricle grossly appears normal in size with probable normal systolic function. Atria: The left atrial size is normal. Right atrial size is normal. There is no Doppler evidence for an interatrial shunt. Mitral Valve: The mitral valve leaflets appear mildly thickened, but open well. There is moderate mitral annular calcification. There is trace mitral regurgitation. Aortic Valve: The aortic valve is not well visualized. The aortic valve is mildly calcified. There is mildly reduced leaflet mobility. There is mild aortic stenosis. The calculated aortic valve area is 1.6 cm2. There has been no significant change since the previous study. The peak aortic velocity is 2.7 m/sec. The peak aortic velocity on the previous exam was 2.4 m/sec. The aortic valve mean gradient is 16 mmHg. No aortic regurgitation is present. Tricuspid Valve: The tricuspid valve is normal. There is trace tricuspid regurgitation. Right ventricular systolic pressure is estimated to be 19 mmHg plus the clinically estimated CVP which cannot be estimated on this exam. Pulmonic Valve: The pulmonic valve is not well seen, but is grossly normal. There is trace pulmonic regurgitation. There is no other significant valvular heart disease. Great Vessels: The aortic root is normal size. The ascending aorta is normal in size. The aortic arch is normal in size. The pulmonary is not well visualized. The inferior vena cava was not visualized. Pericardium/ Pleura There is no pericardial effusion. There is no pleural effusion. MMode/2D Measurements & Calculations LVIDd: 3.3 cm LVOT diam: 2.0 cm LVIDs: 2.1 cm Ao root diam: 3.2 cm FS: 34.2 % asc Aorta Diam: 3.2 cm EPSS: 0.30 cm Ao Arch Diam (Prox Trans): 2.9 cm IVSd: 1.1 cm LVPWd: 0.92 cm LV diaz. diameter/BSA (cm/m^2): 1.6 LV sys. diameter/BSA (cm/m^2): 1.1 LA A2 area: 20.7 cm2 RA long axis: 4.3 cm LA A4 area: 19.9 cm2 RA area: 14.3 cm2 LA length (vol): 5.0 cm RA vol: 39.9 ml LA vol: 69.8 ml RA : 19.8 ml/m2 LA vol index: 34.7 ml/m2 TAPSE: 2.1 cm Doppler Measurements & Calculations Ao V2 max: 269.2 cm/sec LVOT Max Momo: 127.7 cm/sec Ao V2 mean: 190.9 cm/sec LV V1 max P.5 mmHg Ao max P.0 mmHg LV V1 VTI: 30.2 cm Ao mean P.4 mmHg ROBERT(I,D): 1.6 cm2 Ao V2 VTI: 60.4 cm ROBERT(V,D): 1.5 cm2 sev ratio: 0.50 ROBERT indexed to BSA (cm^2/m^2): 0.78 MV E max momo: 79.7 cm/sec TR max momo: 217.0 cm/sec MV A max momo: 124.6 cm/sec TR max P.8 mmHg MV E/A: 0.64 PA V2 max: 102.6 cm/sec Med Peak E' Momo: 4.4 cm/sec PA V2 mean: 67.3 cm/sec E/E' med: 18.2 PA mean P.0 mmHg Lat Peak E' Momo: 5.7 cm/sec PA Accel Time: 0.06 sec E/E' lat: 14.0 E/e' average: 16.1 MV dec time: 0.27 sec MVA(VTI): 3.7 cm2 MV V2 mean: 101.4 cm/sec SV(LVOT): 95.3 ml MV mean P.3 mmHg MV V2 VTI: 25.9 cm Reading Physician:12:[id number] PM
--- NOTE | 2019-05-23 20:24 | DI.CT.S_ITS ---
PROCEDURE: CT HEAD/BRAIN WO CON INDICATIONS: Code stroke TECHNIQUE: Noncontrast 4.5 mm thick angled axial sections acquired from the foramen magnum to the vertex, with coronal and sagittal reformats. For radiation dose reduction, the following was used: automated exposure control, adjustment of mA and/or kV according to patient size. COMPARISON: [facility], CT, BRAIN (TPA), 04/10/2016, 11:04. [facility], MR, MR STROKE PROTOCOL, 04/10/2016, 17:08. FINDINGS: Image quality: Excellent. CSF spaces: Basal cisterns are patent. No extra-axial fluid collections. The ventricles are symmetric in size and shape. Brain: There is a large area of old cerebral infarct in the right frontoparietal lobe, which has increased since 04/10/2016. No intracranial bleeds or masses. There is mild cerebral volume loss for age, with resultant ventricular and sulcal prominence. There are moderate periventricular and deep white matter chronic small vessel ischemic changes. There is intracranial internal carotid artery atherosclerosis. Skull and face: Calvarium and visualized facial bones appear intact, without suspicious lesions. Sinuses: Visualized sinuses and mastoids are clear. IMPRESSION: 1. No acute intracranial abnormalities. No intracranial bleed. 2. A large old MCA infarct involving right frontoparietal lobe, which is increased since the last exam. 3. Cerebral volume loss and chronic microvascular ischemic changes. The result was discussed with Dr. Luna on 05/23/2019 at 2138 hours. Dictated by: Facundo El M.D. on 05/23/2019 at 20:35 Approved by: Facundo El M.D. on 05/23/2019 at 20:41
--- NOTE | 2019-05-23 20:27 | DI.CT.S_ITS ---
PROCEDURE: CT ANGIO HEAD AND NECK INDICATIONS: Code stroke TECHNIQUE: Pre-contrast 4.5 mm thick sections acquired from the foramen magnum to the vertex. After the administration of intravenous contrast, 1 mm thick sections acquired from the aortic arch through the [place] of Shrestha. Post-contrast 4.5 mm thick sections then re-acquired from the foramen magnum to the vertex. 3-dimensional mjvtfev-elwxgxjsy-rjmmivxjro (MIP) and/or volume rendering reformats were acquired of the central intracranial vasculature and neck separately. COMPARISON: [facility], , MR STROKE PROTOCOL, 04/10/2016, 17:08. FINDINGS: Image quality: There are motion artifacts and metallic artifacts from dentures. BRAIN: CSF spaces: Ventricles are normal in size and shape. Basal cisterns are patent. No extra-axial fluid collections. Brain: There is a large cold right MCA infarct. No midline shift. No intracranial bleeds or masses. Phelps-white matter interface appears intact. Skull and face: Calvarium and facial bones appear intact, without suspicious lesions. Orbits appear normal. Sinuses: Sinuses and mastoids are clear. HEAD CT ANGIOGRAPHY: Anterior circulation: Intracranial internal carotid arteries are normal in size and flow. The flow within the paired anterior cerebral arteries is normal and symmetric. The flow within the middle cerebral arteries is normal and symmetric. The anterior communicating artery is seen. No aneurysms are seen. Posterior circulation: Visualized portions of the vertebral arteries demonstrate normal caliber, and join to form a normal appearing basilar artery. Flow within the posterior cerebral arteries is normal and symmetric. No aneurysms are seen. NECK CT ANGIOGRAPHY: Carotid system: The great vessels demonstrate a conventional anatomy as they arise from the aortic arch. The origins of the common carotid arteries appear patent. The common carotid arteries demonstrate normal caliber and courses. There is dense calcification and high grade stenosis to near occlusion in the carotid bifurcations bilaterally. More distal internal carotid arteries demonstrate normal calibers and courses. Posterior circulation: The origins of the vertebral arteries both appear widely patent. The more superior extracranial portions of both vertebral arteries also demonstrate normal courses and calibers. They join to form a normal appearing basilar artery. Soft tissues: Visualized neck soft tissues demonstrate no suspicious abnormalities. Bones: No suspicious bony lesions. Visualized cervical spine appears normally aligned. There is severe degenerative disease seen cervical spine. IMPRESSION: 1. No acute intracranial abnormalities. 2. There is a large old MCA infarct in the right hemisphere. 3. No high-grade stenosis or occlusion in anterior intracranial circulations. 4. No high-grade stenosis or occlusion in posterior intracranial circulations. 5. 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 6. No high-grade stenosis or occlusion in cervical vertebral arteries bilaterally. Any quantitative measurements of stenosis were performed using NASCET criteria. Dictated by: Facundo El M.D. on 05/23/2019 at 21:19 Approved by: Facundo El M.D. on 05/23/2019 at 21:30
--- NOTE | 2019-05-23 20:31 | ED.AMS ---
HPI - Altered Mental Status General Chief Complaint: Altered Mental Status Stated Complaint: Slurred Speech Time Seen by Provider: 05/23/19 20:23 Source: patient and EMS Mode of arrival: EMS Limitations: no limitations History of Present Illness HPI narrative: 83-year-old female. Patient with reported history of 2 prior CVAs. The 1st being 5 years ago and the 2nd being ?a couple years after that ?patient is unsure when the 2nd one was. Patient states she has had TIAs in the past. Not on blood thinners. Only residual deficit from her prior CVAs is left upper extremity weakness for which she sees occupational therapy and physical therapy. This evening's report was that approximately 1950 patient had a sudden onset of slurring her words. She was sitting on her couch watching TV at the time. She did state that she had some vodka prior to the onset of the symptoms. There was no other reported associated symptoms. Symptoms lasting less than 60 minutes She was with a friend whom with she lives at the time. EMS was called. They reported that they had no other findings on their exam except for slurring of the words. Blood sugar greater than 90 prior to arrival. Patient immediately went for a CT scan of the head and a CTA. When she was brought back to the room patient reported no symptoms. Review of Systems Constitutional Denies fever(s), Denies headache(s) and Denies weakness Eyes Denies change in vision and Denies diplopia ENT Ears, Nose, Mouth, and Throat: Denies vertigo, Denies dizziness, Denies headache(s) and Denies disequilibrium Cardiovascular Denies chest pain, Denies syncope, Denies palpitations and Denies dyspnea Respiratory Denies cough and Denies dyspnea Gastrointestinal Gastrointestinal: Denies abdominal pain, Denies nausea and Denies vomiting Genitourinary Denies dysuria Musculoskeletal Denies myalgias, Denies arthralgias, Denies numbness and Denies tingling Integumentary/Breasts Denies lesions and Denies rash Neurologic Reports abnormal speech, Denies behavioral changes, Denies confusion, Denies vertigo, Denies dizziness, Denies syncope, Denies headache(s), Denies focal weakness, Denies numbness, Denies tingling, Denies paresthesias, Denies disequilibrium and Denies weakness Comments: Slurring words Psychiatric Denies behavioral changes and Denies confusion Endocrine Denies palpitations Hematologic/Lymphatic Denies easy bleeding and Denies easy bruising Exam Initial Vital Signs Initial Vital Signs: Vital Signs Temperature 98.4 F 05/23/19 21:00 Pulse Rate 80 05/23/19 21:00 Respiratory Rate 12 05/23/19 21:00 Blood Pressure 134/79 05/23/19 21:00 Pulse Oximetry 98 05/23/19 21:00 Const General: cooperative, comfortable, well developed, well groomed and No acute distress Orientation: alert, awake and oriented x3 HENMT Head: normal to inspection and normocephalic Resp Effort & Inspection: normal respiratory effort Auscultation: clear to auscultation bilaterally Cardio Rate: regular rate Rhythm: regular rhythm Pulses: radial pulses present GI Inspection: non-distended Palpation: soft, No firm and No tender Skin Lesions: no lesions Rashes: no rashes Neuro General: alert, awake and oriented x3 Cranial Nerves: CN's II-XI intact bilaterally Cognition: normal cognition Speech: speech normal Motor: muscle tone normal throughout Sensory Exam: no sensory deficits noted Coordination: bagqns-wv-jxxx test normal Extrem General: normal to inspection and capillary refill normal Psych Appearance: grossly normal and well kempt Scores GCS [place] coma scale eye opening: Spontaneous [place] coma scale verbal response: Orientated Rodolfo coma scale motor response: Obey commands [place] coma scale total score: 15 NIH Stroke Scale Level of Conciousness: Alert, keenly responsive Ask month/age: Answers both questions correctly. Open/close eyes, close hand: Performs both tasks correctly Best gaze horizontal: Normal Visual king: No visual loss Facial palsy: Normal symetrical movement Left arm drift: No drift for full 10 sec Right arm drift: No drift for full 10 sec Left leg drift: No drift for full 10 sec Right leg drift: No drift for full 10 sec Limb ataxia: Absent Sensory on face/arms/legs: Normal, no sensory loss Best language: No aphasia, normal Dysarthria: Normal Extinction or inattention: No abnormality Total NIH Stroke scale score: 0 Course Orders Ordered: ED Orders 05/23/19 20:20 Complete Blood Count AUTO DIFF Stat Comprehensive Metabolic Panel Stat Ethanol (ETOH) Stat Lipase Stat Troponin I Stat 05/23/19 20:24 CT head/brain wo con Stat EKG-12 Lead Stat 05/23/19 20:27 CT angio head and neck Stat 05/23/19 21:00 Partial Thromboplastin Time Stat Prothrombin Time INR Stat Sodium Chloride (Normal Saline 0.9%) 1,000 mls @ 125 mls/hr IV CONT AUSTYN Last Admin: 05/23/19 21:41 Dose: 125 mls/hr Discontinued Medications Aspirin (Aspirin Chew) 324 mg PO NOW ONE Stop: 05/23/19 22:07 Last Admin: 05/23/19 22:13 Dose: 324 mg Vital Signs - 8 hr 05/23/19 21:00 05/23/19 21:05 05/23/19 21:43 Temperature 98.4 F Pulse Rate 80 75 75 Respiratory Rate 12 15 17 Blood Pressure 134/79 Blood Pressure [Right Arm] 119/71 99/54 L Pulse Oximetry 98 98 94 05/23/19 22:00 Temperature Pulse Rate 73 Respiratory Rate 18 Blood Pressure Blood Pressure [Right Arm] 107/65 Pulse Oximetry 95 MDM - Altered Mental Status Lab Data Attestation: I reviewed the patient's lab results. Result diagrams: 05/23/19 20:20 05/23/19 20:20 Lab Results 05/23/19 05/23/19 05/23/19 Range/Units 20:20 20:20 20:20 WBC 8.8 (4.5-11.0) X10^3/uL RBC 4.47 (4.0-5.2) X10^6/uL Hgb 13.6 (12.0-16.0) g/dL Hct 41.5 (36-46) % MCV 93.0 (80-100) fL MCH 30.3 (26-34) PG MCHC 32.6 (30-36) % RDW 13.8 (11.6-14.8) % Plt Count 224 (150-400) X10^3/uL Neut % (Auto) 42.3 L (50-75) % Lymph % (Auto) 45.7 H (25-40) % Towns % (Auto) 8.7 (3-14) % Eos % (Auto) 3.0 (2-4) % Baso % (Auto) 0.3 (0-2) % Neut # (Auto) 3700 (1939-1769) /uL Lymph # (Auto) 4000 (8971-6500) /uL Towns # (Auto) 800 (0-900) /uL Eos # (Auto) 300 (0-450) /uL Baso # (Auto) 0 (0-100) /uL PT (10.1-12.7) SECONDS INR (0.9-1.3) APTT (26.4-36.2) SECONDS Sodium 140 (137-145) mmol/L Potassium 4.2 (3.4-5.1) mmol/L Chloride 105 (98-107) mmol/L Carbon Dioxide 23 (22-32) mmol/L BUN 16 (7-17) mg/dL Creatinine 0.90 (0.52-1.04) mg/dL Estimated GFR 59.8 L (>60) mL/min BUN/Creatinine Ratio 17.8 (6-22) Glucose 98 (80-110) mg/dL Calcium 9.4 (8.4-10.2) mg/dL Total Bilirubin 0.6 (0.2-1.3) mg/dL AST 30 (14-36) IU/L ALT 11 (9-52) IU/L Alkaline Phosphatase 73 (38-126) U/L Troponin I < 0.012 (0.01-0.034) ng/mL Total Protein 8.1 (6.3-8.2) g/dL Albumin 4.2 (3.5-5.0) g/dL Globulin 3.9 (1.7-4.1) g/dL Albumin/Globulin Ratio 1.1 (1.0-2.8) Lipase 84 (23-300) U/L Ethyl Alcohol 132 mg/dL 05/23/19 Range/Units 21:00 WBC (4.5-11.0) X10^3/uL RBC (4.0-5.2) X10^6/uL Hgb (12.0-16.0) g/dL Hct (36-46) % MCV (80-100) fL MCH (26-34) PG MCHC (30-36) % RDW (11.6-14.8) % Plt Count (150-400) X10^3/uL Neut % (Auto) (50-75) % Lymph % (Auto) (25-40) % Towns % (Auto) (3-14) % Eos % (Auto) (2-4) % Baso % (Auto) (0-2) % Neut # (Auto) (9374-7525) /uL Lymph # (Auto) (1740-4812) /uL Towns # (Auto) (0-900) /uL Eos # (Auto) (0-450) /uL Baso # (Auto) (0-100) /uL PT 11.2 (10.1-12.7) SECONDS INR 1.0 (0.9-1.3) APTT 33 (26.4-36.2) SECONDS Sodium (137-145) mmol/L Potassium (3.4-5.1) mmol/L Chloride (98-107) mmol/L Carbon Dioxide (22-32) mmol/L BUN (7-17) mg/dL Creatinine (0.52-1.04) mg/dL Estimated GFR (>60) mL/min BUN/Creatinine Ratio (6-22) Glucose (80-110) mg/dL Calcium (8.4-10.2) mg/dL Total Bilirubin (0.2-1.3) mg/dL AST (14-36) IU/L ALT (9-52) IU/L Alkaline Phosphatase (38-126) U/L Troponin I (0.01-0.034) ng/mL Total Protein (6.3-8.2) g/dL Albumin (3.5-5.0) g/dL Globulin (1.7-4.1) g/dL Albumin/Globulin Ratio (1.0-2.8) Lipase (23-300) U/L Ethyl Alcohol mg/dL Point of Care Testing Glucose POC [address] scan - head: Radiologist's impression: [place] [address] CT Scan Report Signed Patient: Michela Cao LMR#: [id number] : 5Acct:[id number] Age/Sex: 83 / FDate of Service: 05/23/19 Loc: ED Accession Number: [id number] Procedure: CT head/brain wo con Ordering Provider: Yimi Luna D.O. PROCEDURE: CT HEAD/BRAIN WO CON INDICATIONS: Code stroke TECHNIQUE: Noncontrast 4.5 mm thick angled axial sections acquired from the foramen magnum to the vertex, with coronal and sagittal reformats. For radiation dose reduction, the following was used: automated exposure control, adjustment of mA and/or kV according to patient size. COMPARISON: [facility], CT, BRAIN (TPA), 04/10/2016, 11:04. [facility], MR, MR STROKE PROTOCOL, 04/10/2016, 17:08. FINDINGS: Image quality: Excellent. CSF spaces: Basal cisterns are patent. No extra-axial fluid collections. The ventricles are symmetric in size and shape. Brain: There is a large area of old cerebral infarct in the right frontoparietal lobe, which has increased since 04/10/2016. No intracranial bleeds or masses. There is mild cerebral volume loss for age, with resultant ventricular and sulcal prominence. There are moderate periventricular and deep white matter chronic small vessel ischemic changes. There is intracranial internal carotid artery atherosclerosis. Skull and face: Calvarium and visualized facial bones appear intact, without suspicious lesions. Sinuses: Visualized sinuses and mastoids are clear. IMPRESSION: 1. No acute intracranial abnormalities. No intracranial bleed. 2. A large old MCA infarct involving right frontoparietal lobe, which is increased since the last exam. 3. Cerebral volume loss and chronic microvascular ischemic changes. The result was discussed with Dr. Luna on 05/23/2019 at 2138 hours. Dictated by: Facundo El M.D. on 05/23/2019 at 20:35 Approved by: Facundo El M.D. on 05/23/2019 at 20:41 CTA head and neck: Radiologist's impression: KenMichela estrada Michelle 83 F [address] [place] [address] CT Scan Report Signed Patient: Michela Cao LMR#: [id number] : 5Acct:[id number] Age/Sex: 83 / FDate of Service: 05/23/19 Loc: ED Accession Number: [id number] Procedure: CT angio head and neck Ordering Provider: Yimi Luna D.O. PROCEDURE: CT ANGIO HEAD AND NECK INDICATIONS: Code stroke TECHNIQUE: Pre-contrast 4.5 mm thick sections acquired from the foramen magnum to the vertex. After the administration of intravenous contrast, 1 mm thick sections acquired from the aortic arch through the [place] of Shrestha. Post-contrast 4.5 mm thick sections then re-acquired from the foramen magnum to the vertex. 3-dimensional ypodcfu-dmetheqpm-tyyogoxdqh (MIP) and/or volume rendering reformats were acquired of the central intracranial vasculature and neck separately. COMPARISON: [facility], , MR STROKE PROTOCOL, 04/10/2016, 17:08. FINDINGS: Image quality: There are motion artifacts and metallic artifacts from dentures. BRAIN: CSF spaces: Ventricles are normal in size and shape. Basal cisterns are patent. No extra-axial fluid collections. Brain: There is a large cold right MCA infarct. No midline shift. No intracranial bleeds or masses. Phelps-white matter interface appears intact. Skull and face: Calvarium and facial bones appear intact, without suspicious lesions. Orbits appear normal. Sinuses: Sinuses and mastoids are clear. HEAD CT ANGIOGRAPHY: Anterior circulation: Intracranial internal carotid arteries are normal in size and flow. The flow within the paired anterior cerebral arteries is normal and symmetric. The flow within the middle cerebral arteries is normal and symmetric. The anterior communicating artery is seen. No aneurysms are seen. Posterior circulation: Visualized portions of the vertebral arteries demonstrate normal caliber, and join to form a normal appearing basilar artery. Flow within the posterior cerebral arteries is normal and symmetric. No aneurysms are seen. NECK CT ANGIOGRAPHY: Carotid system: The great vessels demonstrate a conventional anatomy as they arise from the aortic arch. The origins of the common carotid arteries appear patent. The common carotid arteries demonstrate normal caliber and courses. There is dense calcification and high grade stenosis to near occlusion in the carotid bifurcations bilaterally. More distal internal carotid arteries demonstrate normal calibers and courses. Posterior circulation: The origins of the vertebral arteries both appear widely patent. The more superior extracranial portions of both vertebral arteries also demonstrate normal courses and calibers. They join to form a normal appearing basilar artery. Soft tissues: Visualized neck soft tissues demonstrate no suspicious abnormalities. Bones: No suspicious bony lesions. Visualized cervical spine appears normally aligned. There is severe degenerative disease seen cervical spine. IMPRESSION: 1. No acute intracranial abnormalities. 2. There is a large old MCA infarct in the right hemisphere. 3. No high-grade stenosis or occlusion in anterior intracranial circulations. 4. No high-grade stenosis or occlusion in posterior intracranial circulations. 5. High-grade ufnpuoyr-dy-zkfy occlusion at the carotid bifurcations bilaterally. 6. No high-grade stenosis or occlusion in cervical vertebral arteries bilaterally. Any quantitative measurements of stenosis were performed using NASCET criteria. Dictated by: Facundo El M.D. on 05/23/2019 at 21:19 Approved by: Facundo El M.D. on 05/23/2019 at 21:30 ECG Data Attestation: I personally reviewed and interpreted this ECG as follows: Prior ECG tracings: not available for review Interpretation: Sinus rhythm Ventricular rate is 70 First degree AV block as needed oval 216 normal QRS Normal QTC No ST T wave changes MDM Narrative Medical decision making narrative: The time of my evaluation patient was back to normal both per her report and by the report of the individual who was with her when the symptoms 1st started. She had a NIH score of 0. Had a normal neurologic exam otherwise. Head CT and CT of the head neck shows no acute pathology. Given the resolution of her symptoms will hold on tPA. Patient was given aspirin here in the emergency department. Given her symptoms and her prior history of CVA there is concern for a TIA. Discussed the case with KATIE Moffett the night hospitalist who will admit the patient for further evaluation treatment. Discussed the diagnosis and the recommendation for admission with the patient who expressed understanding and agreement. Discharge Plan Departure Patient Disposition: Admitted as Observation Clinical Impression: TIA (transient ischemic attack) Admit Date/Time: 05/23/19 22:15 Admit Provider: Lea Moffett
[2019-05-23 20:51] LABS: Add Manual Diff / Slide Review NO; Basophils Absolute Auto 0 /uL (0-100); Basophils Percent Auto 0.3 % (0-2); Eosinophils Absolute Auto 300 /uL (0-450); Hematocrit 41.5 % (36-46); Hemoglobin 13.6 g/dL (12.0-16.0); Lymphocytes Absolute Auto 4000 /uL (1100-4500); Lymphocytes Percent Auto 45.7 % (25-40); Mean Corpuscular HGB Conc 32.6 % (30-36); Mean Corpuscular Hemoglobin 30.3 PG (26-34); Monocytes Absolute Auto 800 /uL (0-900); Monocytes Percent Auto 8.7 % (3-14); Neutrophils Absolute Auto 3700 /uL (1500-7000); Neutrophils Percent Auto 42.3 % (50-75); Platelet Count 224 X10^3/uL (150-400); Red Blood Cell Count 4.47 X10^6/uL (4.0-5.2); Red Cell Distribution Width 13.8 % (11.6-14.8); White Blood Cell Count 8.8 X10^3/uL (4.5-11.0)
[2019-05-23 20:53] LABS: Lipase 84 U/L (23-300)
[2019-05-23 20:55] LABS: Alanine Aminotransferase 11 IU/L (9-52); Albumin 4.2 g/dL (3.5-5.0); Albumin Globulin Ratio 1.1 (1.0-2.8); Alkaline Phosphatase 73 U/L (38-126); Aspartate Aminotransferase 30 IU/L (14-36); BUN Creatinine Ratio 17.8 (6-22); Bilirubin Total 0.6 mg/dL (0.2-1.3); Blood Urea Nitrogen 16 mg/dL (7-17); Calcium 9.4 mg/dL (8.4-10.2); Carbon Dioxide 23 mmol/L (22-32); Chloride 105 mmol/L (98-107); Estimated Glomerular Filt Rate 59.8 mL/min (>60); Ethanol (ETOH) 132 mg/dL; Globulin 3.9 g/dL (1.7-4.1); Glucose 98 mg/dL (80-110); HEMOLYSIS 36 (0-50); Potassium 4.2 mmol/L (3.4-5.1); Sodium 140 mmol/L (137-145); Total Protein 8.1 g/dL (6.3-8.2)
[2019-05-23 21:00] VITALS: BP 134/79; PULSE 80; RESP 12; TEMP 36.9; O2SAT 98
[2019-05-23 21:05] VITALS: BP 119/71; PULSE 75; RESP 15; O2SAT 98
[2019-05-23 21:06] LABS: Troponin I < 0.012 ng/mL (0.01-0.034)
--- NOTE | 2019-05-23 21:12 | PC.NURSE ---
2100: lab at bedside to draw labs
[2019-05-23 21:22] LABS: Prothrombin Time 11.2 SECONDS (10.1-12.7)
[2019-05-23 21:25] LABS: PTT Partial Thromboplastin Tim 33 SECONDS (26.4-36.2)
[2019-05-23] MEDS: SODIUM CHLORIDE 0.9% 1,000 ML 125 ML IV (21:41)
[2019-05-23 21:43] VITALS: BP 99/54; PULSE 75; RESP 17; O2SAT 94
[2019-05-23 22:00] VITALS: BP 107/65; PULSE 73; RESP 18; O2SAT 95
[2019-05-23] MEDS: ASPIRIN 81 MG TAB 324 MG PO (22:13)
--- NOTE | 2019-05-23 22:23 | PC.NURSE ---
Unable to obtain Rx list at this time. Pt will have a friend bring in her med list from home tonight or in the AM
[2019-05-23 23:10] VITALS: BP 113/64; PULSE 69; RESP 16; TEMP 36.6; O2SAT 96
--- NOTE | 2019-05-23 23:35 | PM.HP.1 ---
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 She also states she was trying to pour herself vodka over ice and that is the last time she remembers anything. She states that they were preparing their own separate dinners and the next thing she realized was EMS Crews speaking to her. She does not remember anything that her friend informed EMS or the Emergency Department of. She was stated to have started to slur her speech. In the emergency department they did a CT which was negative and her NIHHS score was 0, and they gave her aspirin. No medical records are available as her primary care provider's EMR is not available to us. She states that she had a CVA approximately 5 years ago in [place] and spent several days at the hospital there. She then had another 1 approximately 3 years ago when she was told that she had fallen onto her dinner. During the 2nd CVA she was told that she likely had a number of different infarcts. She states a medical history of the 2 strokes, hypertension and sciatica. She is unable to tell me what medication she is taking. She recently had them converted to a pill pack. Patient History Medical History CVA (cerebral vascular accident) (Acute) Essential hypertension (Chronic) History of CVA (cerebrovascular accident) (Chronic) History of hysterectomy (Chronic) Surgical History History of bilateral breast reduction surgery (Chronic) History of cataract extraction with lens replacement (Chronic) History of cholecystectomy (Chronic) Social History household members: friend(s) Smoking Status: Never smoker alcohol intake: current Family & Social History Safety & Behavioral: Feels Safe in Current Yes Environment Been Physically Hurt or No Threatened By a Person Tobacco & Substance use: Smoking Status Never smoker alcohol intake frequency 0-2 drinks per day Substance Use Type medical marijuana Meds Allergies Allergy/AdvReac Type Severity Reaction Status Date / Time No Known Drug Allergies Allergy Verified 05/23/19 22:30 Review of Systems Review of Systems She denies fever sweats or chills, she does worry reading glasses, she does have difficulty swallowing large amounts of food boluses are big pills, she does state that she has mild shortness of breath that she feels is associated with sinus drainage, denies abdominal pain or cramping, denies diarrhea or constipation she states positive to having a leaky bladder, she has chronic left arm weakness as a result of her previous stroke, she has dry skin she states she feels is due to dehydration, she denies any psychiatric history. Exam Vital Signs (past 8 hours): - 05/23/19 21:00 05/23/19 21:05 05/23/19 21:43 Temperature 98.4 F Pulse Rate 80 75 75 Respiratory Rate 12 15 17 Blood Pressure 134/79 Blood Pressure [Right Arm] 119/71 99/54 L Pulse Oximetry 98 98 94 05/23/19 22:00 05/23/19 23:10 Temperature 97.9 F Pulse Rate 73 69 Respiratory Rate 18 16 Blood Pressure 113/64 Blood Pressure [Right Arm] 107/65 Pulse Oximetry 95 96 Oxygen Delivery Method Room Air Narrative Exam Narrative: Gen: Alert, oriented 83 y.o. obese female, very pleasant HEENT: normocephalic, atraumatic, conjunctiva clear, sclera non-icteric, oral mucosa pink and moist Neck: supple, full ROM Resp: Lungs CTA, non-labored breathing CV: RRR, no murmur or rubs Abd: soft, non-tender, normoactive BTs Skin: no lesions or rashes, dry and intact Neuro: Alert and oriented X 4 w/no focal deficits Extremities: moves all 4 extremities, is ambulatory Psyche: normal mood and affect. Objective Labs Result Diagrams: 05/23/19 20:20 05/23/19 20:20 Labs: Laboratory Results - last 24 hr 05/23/19 05/23/19 05/23/19 20:20 20:20 20:20 WBC 8.8 RBC 4.47 Hgb 13.6 Hct 41.5 MCV 93.0 MCH 30.3 MCHC 32.6 RDW 13.8 Plt Count 224 Neut % (Auto) 42.3 L Lymph % (Auto) 45.7 H Angelina % (Auto) 8.7 Eos % (Auto) 3.0 Baso % (Auto) 0.3 Neut # (Auto) 3700 Lymph # (Auto) 4000 Angelina # (Auto) 800 Eos # (Auto) 300 Baso # (Auto) 0 PT INR APTT Sodium 140 Potassium 4.2 Chloride 105 Carbon Dioxide 23 BUN 16 Creatinine 0.90 Estimated GFR 59.8 L BUN/Creatinine Ratio 17.8 Glucose 98 Calcium 9.4 Total Bilirubin 0.6 AST 30 ALT 11 Alkaline Phosphatase 73 Troponin I < 0.012 Total Protein 8.1 Albumin 4.2 Globulin 3.9 Albumin/Globulin Ratio 1.1 Lipase 84 Ethyl Alcohol 132 05/23/19 21:00 WBC RBC Hgb Hct MCV MCH MCHC RDW Plt Count Neut % (Auto) Lymph % (Auto) Angelina % (Auto) Eos % (Auto) Baso % (Auto) Neut # (Auto) Lymph # (Auto) Angelina # (Auto) Eos # (Auto) Baso # (Auto) PT 11.2 INR 1.0 APTT 33 Sodium Potassium Chloride Carbon Dioxide BUN Creatinine Estimated GFR BUN/Creatinine Ratio Glucose Calcium Total Bilirubin AST ALT Alkaline Phosphatase Troponin I Total Protein Albumin Globulin Albumin/Globulin Ratio Lipase Ethyl Alcohol Assessment & Plan Assessment & Plan narrative: Michela Cao is a pleasant 83-year-old female with a history of at least 2 CVAs who had a witnessed syncopal episode and slurred speech by a friend. She will be admitted for further evaluation and observation overnight. 1. Syncopal episode, rule out CVA versus TIA, acute, present on admission Patient will have NIH Scale done Q shift Neuro checks q.4 Speech therapy to see the patient in the morning, will initiate nurse swallow eval PT/OT in the morning She started on a statin, atorvastatin 20 mg at bedtime Carotid Doppler, echocardiogram, MRI in the morning We need to obtain old records from her PCP specifically her medication list 2. Essential hypertension She is normotensive at this time, monitor on telemetry overnight Patient is admitted as an inpatient as his/her stay is anticipated to exceed 2 midnights. FEN: IV saline lock, heart healthy diet, chemistries in the morning VTE Prophylaxis: Enoxaparin 40 mg subcu daily Disposition: Unknown at this time likely home Code status: DNR/DNI per patient Admission time: 75 minutes Meds reconciled: Yes/No/Partial based on current med list Scores CHADS-VASc Congestive heart failure: no Hypertension: yes Age 75 years or older: yes Diabetes mellitus: no Stroke, TIA, or TE: yes Vascular disease: yes Age 65 to 74 years: no Sex category (female): Female CHADS-VASc Score: 7 Quality Stroke Contraindication Not Initiating IV-Tpa: Contraindicated Onset of Symptoms Date: 05/23/19 Onset of Symptoms Time: 19:50 Symptom Onset Unknown: Yes Contraindication Antithromb by Day Two: Contraindicated Rehab Services Assessed: Rehabilitation therapy
--- NOTE | 2019-05-23 23:40 | P.HP_ITS ---
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 She also states she was trying to pour herself vodka over ice and that is the last time she remembers anything. She states that they were preparing their own separate dinners and the next thing she realized was EMS [employer]s speaking to her. She does not remember anything that her friend informed EMS or the Emergency Department of. She was stated to have started to slur her speech. In the emergency department they did a CT which was negative and her NIHHS score was 0, and they gave her aspirin. No medical records are available as her primary care provider's EMR is not available to us. She states that she had a CVA approximately 5 years ago in [place] and spent several days at the hospital there. She then had another 1 approximately 3 years ago when she was told that she had fallen onto her dinner. During the 2nd CVA she was told that she likely had a number of different infarcts. She states a medical history of the 2 strokes, hypertension and sciatica. She is unable to tell me what medicat ion she is taking. She recently had them converted to a pill pack. Patient History Medical History CVA (cerebral vascular accident) (Acute) Essential hypertension (Chronic) History of CVA (cerebrovascular accident) (Chronic) History of hysterectomy (Chronic) Surgical History History of bilateral breast reduction surgery (Chronic) History of cataract extraction with lens replacement (Chronic) History of cholecystectomy (Chronic) Social History household members: friend(s) Smoking Status: Never smoker alcohol intake: current Family & Social History Safety & Behavioral: Feels Safe in Current Yes Environment Been Physically Hurt or No Threatened By a Person Tobacco & Substance use: Smoking Status Never smoker alcohol intake frequency 0-2 drinks per day Substance Use Type medical marijuana Meds Allergies Allergy/AdvReac Type Severity Reaction Status Date / Time No Known Drug Allergies Allergy Verified 05/23/19 22:30 Review of Systems Review of Systems She denies fever sweats or chills, she does worry reading glasses, she does have difficulty swallowing large amounts of food boluses are big pills, she does state that she has mild shortness of breath that she feels is associated with sinus drainage, denies abdominal pain or cramping, denies diarrhea or constipation she states positive to having a leaky bladder, she has chronic left arm weakness as a result of her previous stroke, she has dry skin she states she feels is due to dehydration, she denies any psychiatric history. Exam Vital Signs (past 8 hours): - 05/23/19 21:00 05/23/19 21:05 05/23/19 21:43 Temperature 98.4 F Pulse Rate 80 75 75 Respiratory Rate 12 15 17 Blood Pressure 134/79 Blood Pressure [Right Arm] 119/71 99/54 L Pulse Oximetry 98 98 94 05/23/19 22:00 05/23/19 23:10 Temperature 97.9 F Pulse Rate 73 69 Respiratory Rate 18 16 Blood Pressure 113/64 Blood Pressure [Right Arm] 107/65 Pulse Oximetry 95 96 Oxygen Delivery Method Room Air Narrative Exam Narrative: Gen: Alert, oriented 83 y.o. obese female, very pleasant HEENT: normocephalic, atraumatic, conjunctiva clear, sclera non-icteric, oral mucosa pink and moist Neck: supple, full ROM Resp: Lungs CTA, non-labored breathing CV: RRR, no murmur or rubs Abd: soft, non-tender, normoactive BTs Skin: no lesions or rashes, dry and intact Neuro: Alert and oriented X 4 w/no focal deficits Extremities: moves all 4 extremities, is ambulatory Psyche: normal mood and affect. Objective Labs Result Diagrams: 05/23/19 20:20 05/23/19 20:20 Labs: Laboratory Results - last 24 hr 05/23/19 05/23/19 05/23/19 20:20 20:20 20:20 WBC 8.8 RBC 4.47 Hgb 13.6 Hct 41.5 MCV 93.0 MCH 30.3 MCHC 32.6 RDW 13.8 Plt Count 224 Neut % (Auto) 42.3 L Lymph % (Auto) 45.7 H [place] % (Auto) 8.7 Eos % (Auto) 3.0 Baso % (Auto) 0.3 Neut # (Auto) 3700 Lymph # (Auto) 4000 [place] # (Auto) 800 Eos # (Auto) 300 Baso # (Auto) 0 PT INR APTT Sodium 140 Potassium 4.2 Chloride 105 Carbon Dioxide 23 BUN 16 Creatinine 0.90 Estimated GFR 59.8 L BUN/Creatinine Ratio 17.8 Glucose 98 Calcium 9.4 Total Bilirubin 0.6 AST 30 ALT 11 Alkaline Phosphatase 73 Troponin I < 0.012 Total Protein 8.1 Albumin 4.2 Globulin 3.9 Albumin/Globulin Ratio 1.1 Lipase 84 Ethyl Alcohol 132 05/23/19 21:00 WBC RBC Hgb Hct MCV MCH MCHC RDW Plt Count Neut % (Auto) Lymph % (Auto) [place] % (Auto) Eos % (Auto) Baso % (Auto) Neut # (Auto) Lymph # (Auto) [place] # (Auto) Eos # (Auto) Baso # (Auto) PT 11.2 INR 1.0 APTT 33 Sodium Potassium Chloride Carbon Dioxide BUN Creatinine Estimated GFR BUN/Creatinine Ratio Glucose Calcium Total Bilirubin AST ALT Alkaline Phosphatase Troponin I Total Protein Albumin Globulin Albumin/Globulin Ratio Lipase Ethyl Alcohol Assessment & Plan Assessment & Plan narrative: Michela Cao is a pleasant 83-year-old female with a history of at least 2 CVAs who had a witnessed syncopal episode and slurred speech by a friend. She will be admitted for further evaluation and observation overnight. 1. Syncopal episode, rule out CVA versus TIA, acute, present on admission * Patient will have NIH Scale done Q shift * Neuro checks q.4 * Speech therapy to see the patient in the morning, will initiate nurse swallow eval * PT/OT in the morning * She started on a statin, atorvastatin 20 mg at bedtime * Carotid Doppler, echocardiogram, MRI in the morning * We need to obtain old records from her PCP specifically her medication list 2. Essential hypertension * She is normotensive at this time, monitor on telemetry overnight Patient is admitted as an inpatient as his/her stay is anticipated to exceed 2 midnights. FEN: IV saline lock, heart healthy diet, chemistries in the morning VTE Prophylaxis: Enoxaparin 40 mg subcu daily Disposition: Unknown at this time likely home Code status: DNR/DNI per patient Admission time: 75 minutes Meds reconciled: Yes/No/Partial based on current med list Scores CHADS-VASc Congestive heart failure: no Hypertension: yes Age 75 years or older: yes Diabetes mellitus: no Stroke, TIA, or TE: yes Vascular disease: yes Age 65 to 74 years: no Sex category (female): Female CHADS-VASc Score: 7 Quality Stroke Contraindication Not Initiating IV-Tpa: Contraindicated Onset of Symptoms Date: 05/23/19 Onset of Symptoms Time: 19:50 Symptom Onset Unknown: Yes Contraindication Antithromb by Day Two: Contraindicated Rehab Services Assessed: Rehabilitation therapy
[2019-05-23 23:50] VITALS: BP 135/80; PULSE 60; RESP 18; TEMP 36.7; O2SAT 94
[2019-05-24 00:11] VITALS: BMI 39.1
--- NOTE | 2019-05-24 03:03 | PC.ADMIT ---
Safe hand off from Magalis PULIDO. Pt arrived on unit via stretcher at 2300, able to transfer to bed with ease. Pt is AxO, calm and cooperative. Vital signs are stable, lung sounds clear bilaterally, CMS intact. Pt on Tele: NS first degree AV block. She is only NS at 125ml/hr. Pt is here for observation over night. Pt was educated about the use of call light, and had many snacks and a sandwich since she was not able to have dinner. [address] Admission Note: The patient,Michela Cao,83 y/o, was given written information regarding hospital policies, unit procedures and contact persons. Patient's smoking status: Never smoker. Vital Signs - 8 hr 05/23/19 21:00 05/23/19 21:05 05/23/19 21:43 Temperature 98.4 F Pulse Rate 80 75 75 Respiratory Rate 12 15 17 Blood Pressure 134/79 Blood Pressure [Right Arm] 119/71 99/54 L Pulse Oximetry 98 98 94 05/23/19 22:00 05/23/19 23:10 05/23/19 23:50 Temperature 97.9 F 98.1 F Pulse Rate 73 69 60 Respiratory Rate 18 16 18 Blood Pressure 113/64 135/80 Blood Pressure [Right Arm] 107/65 Pulse Oximetry 95 96 94
[2019-05-24 05:09] VITALS: BP 128/81; PULSE 81; RESP 18; TEMP 36.7; O2SAT 95
[2019-05-24 05:26] LABS: Add Manual Diff / Slide Review NO; Basophils Absolute Auto 0 /uL (0-100); Basophils Percent Auto 0.5 % (0-2); Eosinophils Absolute Auto 200 /uL (0-450); Eosinophils Percent Auto 3.4 % (2-4); Hematocrit 39.2 % (36-46); Hemoglobin 13.2 g/dL (12.0-16.0); Lymphocytes Absolute Auto 2600 /uL (1100-4500); Lymphocytes Percent Auto 40.4 % (25-40); Mean Corpuscular HGB Conc 33.7 % (30-36); Mean Corpuscular Hemoglobin 30.6 PG (26-34); Mean Corpuscular Volume 90.8 fL (80-100); Monocytes Absolute Auto 700 /uL (0-900); Monocytes Percent Auto 11.4 % (3-14); Neutrophils Absolute Auto 2900 /uL (1500-7000); Neutrophils Percent Auto 44.3 % (50-75); Platelet Count 192 X10^3/uL (150-400); Red Blood Cell Count 4.32 X10^6/uL (4.0-5.2); Red Cell Distribution Width 13.9 % (11.6-14.8); White Blood Cell Count 6.5 X10^3/uL (4.5-11.0)
[2019-05-24 05:42] LABS: Alanine Aminotransferase 11 IU/L (9-52); Albumin 3.7 g/dL (3.5-5.0); Alkaline Phosphatase 65 U/L (38-126); Aspartate Aminotransferase 23 IU/L (14-36); BUN Creatinine Ratio 16.7 (6-22); Bilirubin Total 0.4 mg/dL (0.2-1.3); Blood Urea Nitrogen 15 mg/dL (7-17); Calcium 8.8 mg/dL (8.4-10.2); Carbon Dioxide 26 mmol/L (22-32); Chloride 108 mmol/L (98-107); Cholesterol 179 mg/dL (140-199); Estimated Glomerular Filt Rate 59.8 mL/min (>60); Globulin 3.7 g/dL (1.7-4.1); Glucose 108 mg/dL (80-110); HDL Cholesterol 40 mg/dL (40-60); HEMOLYSIS < 15 (0-50); LDL Cholesterol Calculated 86 mg/dL (<100); Potassium 4.2 mmol/L (3.4-5.1); Sodium 142 mmol/L (137-145); Total Protein 7.4 g/dL (6.3-8.2); Triglycerides 263 mg/dL (35-150)
[2019-05-24 05:44] LABS: B Type Natriuretic Peptide < 100 (<100)
[2019-05-24] MEDS: SODIUM CHLORIDE 0.9% 1,000 ML 125 ML IV (05:45)
[2019-05-24 07:28] VITALS: BP 138/83; PULSE 79; RESP 18; TEMP 36.3; O2SAT 96
[2019-05-24 07:30] VITALS: O2SAT 97
[2019-05-24] MEDS: ENOXAPARIN 40 MG/0.4 ML SYRINGE SUBCUT (08:47)
--- NOTE | 2019-05-24 09:27 | DI.MRI.S_ITS ---
PROCEDURE: MR STROKE Pre- and post-contrast brain MRI, non-contrast brain MR angiogram, pre- and postcontrast neck MR angiogram INDICATIONS: Syncopal episode TECHNIQUE: Brain: Noncontrast axial T1 spin echo, axial T2 fast spin echo, sagittal and axial FLAIR, coronal T2 fast spin echo, axial gradient echo, axial diffusion and ADC through the brain. After the administration of contrast, axial 3D VIBE of the cranial vasculature and brain. Brain MRA: Non-contrast 3-D time of flight MR angiogram, with multiple gvwghgr-flvxuqlqw-bcrtlxqlse (MIP) reformats performed. Neck MRA: Axial and sagittal TruFISP through the neck. Coronal dynamic MR angiogram during administration of contrast in the arterial and venous phases, with 3-dimenstional lmhwxxp-yeilnhwsg-pmrebvwjty (MIP) reformats constructed from subtraction images. COMPARISON: [facility], CT, CT ANGIO HEAD AND NECK, 05/23/2019, 20:29. [facility], CT, CT HEAD/BRAIN WO CON, 05/23/2019, 20:23. FINDINGS: Image quality: Excellent. BRAIN: CSF spaces: Ventricles are normal in size and shape. Basal cisterns are patent. No extra-axial fluid collections. Brain: No intracranial bleeds or mass effects. Phelps-white matter interface is normal. Diffusion weighted images show no acute ischemic insults. Brainstem appears normal. Normal intravascular flow voids are present. No abnormal intracranial enhancement. There is a remote right MCA territory infarction seen, with volume loss and encephalomalacia. Skull and face: Calvarial marrow signal is normal. Orbits appear normal. Note is made of bilateral lens replacements. Sinuses: Sinuses and mastoids are clear. BRAIN MR ANGIOGRAM: Anterior circulation: Intracranial internal carotid arteries are normal in size and enhancement. The flow within the paired anterior cerebral arteries is normal and symmetric. The flow within the middle cerebral arteries is normal and symmetric. The anterior communicating artery is seen. No stenoses, occlusions, or aneurysms. Posterior circulation: Only a scant amount of fluid can be seen within the distal right vertebral artery. The vertebral arteries join to form a normal appearing basilar artery. The flow within the posterior cerebral arteries is normal and symmetric. No stenoses, occlusions, or aneurysms. NECK MR ANGIOGRAM: Carotids: Great vessels demonstrate a conventional anatomy as they arise from the aortic arch. The origins of the common carotid arteries appear patent. The calibers and courses of both common carotid arteries appear normal. However, proximal left common carotid artery is not well seen. The bifurcation regions demonstrate irregularity. There is a 70-80% stenosis involving right proximal internal carotid artery. No significant stenosis can be seen involving the left proximal internal artery. Posterior circulation: The origins of the vertebral arteries appear patent. There is a likely 50% stenosis seen at the origin of the left vertebral artery. The left vertebral artery is dominant to the right. More superior portions of both vertebral arteries demonstrate normal course and caliber, and join to form a normal appearing basilar artery. Miscellaneous: Subclavian arteries appear patent. Pre-contrast images through the neck show no soft tissue abnormalities. IMPRESSION: BRAIN MRI: No findings of acute or subacute infarction can be seen. Remote right MCA territory infarction. Note is made of age-appropriate brain parenchymal volume loss and chronic small vessel ischemic changes. No masses or abnormal enhancement can be seen. BRAIN MR ANGIOGRAM: Only a scant amount of flow can be seen within the distal right vertebral artery. This may simply be secondary to the left vertebral artery being dominant to the right. NECK MR ANGIOGRAM: There is a 70-80% stenosis seen involving the right proximal internal carotid artery. No definite stenosis can be seen involving the left proximal internal carotid artery. The CT appearance is likely related to artifact. Likely 50% stenosis at the origin of the left vertebral artery. The left vertebral artery is dominant to the right. Dictated by: Nicholas Curry M.D. on 05/24/2019 at 11:34 Approved by: Nicholas Curry M.D. on 05/24/2019 at 11:41
[2019-05-24 11:02] VITALS: BP 154/96; PULSE 95; RESP 16; TEMP 36.4; O2SAT 95
--- NOTE | 2019-05-24 12:05 | PT.IPTN ---
Physical Therapy Treatment Note M3 PT-IP Subjective Start: 05/24/19 12:04 Freq: NEEDED Status: Active Protocol: Document 05/24/19 12:04 NFW (Rec: 05/24/19 12:04 [id number]) Subjective Physical Therapy Visit Type Type Patient Unavailable Notes Patient out of room for MRI.
--- NOTE | 2019-05-24 14:15 | ST.IPIE ---
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 She lives in [place] with a roommate. She has a medical history of 2 previous CVAs and possible TIA as well as hypertension. She states she had outpatient OT and PT at [facility] recently. Denies any previous ST. 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 She lost one point for divergent naming, one point for short term recall of 5 objects, 2 points for reverse digit span, and 2 points for clock drawing. 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 She admitted to having difficulty managing medication so she has recently switched to using pre-portioned pill packs. She enjoys technology and likes to post blogs and post on Facebook. She was observed to navigate her iPhone quite well. 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 She would benefit from outpatient speech therapy or home health speech therapy for more in depth assessment and a few sessions targeting compensatory strategy training to improve problem solving and safety in her home. A complete speech and language evaluation was not completed; however, patient's receptive language skills seem WFL. During picture naming, she exhibited two phonemic paraphasias: squib for squid and hassock for hammock which she was not aware of and did not attempt to self-correct. No other speech or expressive language errors were observed in conversation or during the assessment tasks. Speech was appropriate and 100% intelligible in conversation. Staff in room to do echo; therefore, assessment was discontinued. Patient passed the 3 oz TrendPo swallow screen. She denies difficulty swallowing food/ liquid, but states she has occasional trouble swallowing larger pills. We discussed taking these in a carrier or talking to her pharmacist to inquire about cutting or crushing pills for easier swallowing. Recommendations Recommendations Follow-up tomorrow with ongoing speech and language evaluation to include motor speech assessment and discussion with the patient regarding speech sound errors for differential diagnosis ( apraxia vs. aphasia?). Total Time Full Evaluation Time 30
--- NOTE | 2019-05-24 14:32 | PT.IIE ---
Surgical History (Last Reviewed 05/24/19 @ 00:59 by BALDEMAR Leggett) History of bilateral breast reduction surgery (Chronic) History of cataract extraction with lens replacement (Chronic) History of cholecystectomy (Chronic) Medical History (Last Reviewed 05/24/19 @ 00:59 by BALDEMAR Leggett) CVA (cerebral vascular accident) (Acute) Essential hypertension (Chronic) History of CVA (cerebrovascular accident) (Chronic) History of hysterectomy (Chronic) Physical Therapy Inpatient Evaluation/Re-Eval M1 PT/OT-IP Prior Functional Status Start: 05/24/19 12:04 Freq: NEEDED Status: Active Protocol: Document 05/24/19 13:56 NFW (Rec: 05/24/19 14:32 NFW [id number]) Medical Review Prior Functional Status Medical History Reviewed Yes Communication Alert and very talkative. Doesn't answer questions directly. Mobility and Gait Prior to admittance would walk around the home using FWW or cane prn. Most of the time without using an assistive device. Activities of Daily Living and IADL's Prior to admittance patient independent with dressing with the exception of assist with her shoes and socks. Independent in bathing and grooming. Prior Functional Level (Other details) Patient recently bought a new car for herself but has not driven much. She is waiting to take a refresher course on driving. Her housemate has done most of the driving, grocery shopping and cooking. The patient does most of the vacuuming in their home, she is independent with doing her laundry. Social History Household Members friend(s) Living Arrangements Apartment/Condo Number of Floors (Floors) One Floor Number of Stairs To Enter/Railing? 1-2 steps to enter at the front door as well as from the garage. Hand rail on right side for each entrance. Home Environment Walk in Shower Tub/Shower Home Equipment Front Wheel Walker Quad Cane Straight Cane Sock Aid Employment Status Retired Additional Social History Comment Patient has a housemate, Liliya . Patient is concerned with her housemate in that she has been having some recent memory problems. M2 PT-IP Current Condition Start: 05/24/19 12:04 Freq: NEEDED Status: Active Protocol: Document 05/24/19 13:56 NFW (Rec: 05/24/19 14:32 NFW [id number]) Physical Therapy Current Condition Current Condition Evaluation Date 05/24/19 Treatment Diagnosis Patient with bout of LOC, possible TIA/CVA. Onset Date 05/23/19 Weight Bearing Status Weight Bearing Status Full Weight Bearing M3 PT-IP Subjective Start: 05/24/19 12:04 Freq: NEEDED Status: Active Protocol: Document 05/24/19 13:56 NFW (Rec: 05/24/19 14:32 [facility] [id number]) Subjective Physical Therapy Visit Type Type Initial Evaluation Visit Start Time 13:00 Visit Stop Time 13:55 Total Visit Minutes 55 Notes Currently patient has no complaints of pain. Prior to admittance she was seeing a physical therapist as OP for sciatica. Number of PRODUCTION CONTROL PEGBOARD CLERK Visits 0 Physical Therapy Visit Comments Patient Comments Patient concerned with her housemate and whether she will be able to assist her with her ADLs and home activities. Patient Goals Goal is to return to her condo with housemate. Therapy Pain Assessment Pain When Pain Assessed During Mobility Pain Present Pain Present Denied Pain M4 PT-IP Mobility and Gait Start: 05/24/19 12:04 Freq: NEEDED Status: Active Protocol: Document 05/24/19 13:56 NFW (Rec: 05/24/19 14:32 [facility] [id number]) PT-Bed Mobility Assessment Rolling Type of Rolling Bilateral Level of Assist Independent Supine to Sit Supine to Sit Standby Assistance 1 Person Assistance Sit to Supine Sit to Supine Standby Assistance 1 Person Assistance Scooting Scooting to Edge of Bed Independent Scooting Up and Down in Bed Independent PT-Transfer Assessment Sit to and From Stand Sit to and from Stand Contact Guard Assistance 1 Person Assistance Equipment Transfer Assistive Device Gait Belt Front Wheeled Walker Orthotic/Prosthetic Devices or Brace: No Transfers Transfer Destination Bed Chair Toilet Transfer Ability Level of Assist Contact Guard Assistance 1 Person Assistance Comments Mobility Comments Patient showing good form with transfers, CGA for safety reasons. Gait Assessment Gait Gait Assistance Required: Contact Guard Assist 1 Person Assist Distance (Feet) 50 Able to Maintain Weight Bearing Status Yes During Gait Assistive Devices Assistive Device Gait Belt Front Wheeled Walker Orthotic/Prosthetic Devices or Brace: No Gait Deviations General Gait Pattern Flexed Trunk Factors Limiting Gait Function Factors Limiting Gait Function Decreased Activity Tolerance Decreased Strength Comments Gait Comments Ambulates with BLE in external rotation. Cuing for maintaining upright posture. Frequent SOB. Able to ambulate ~5' without the use of any assistive devices, CGA. PT-Balance Assessment Sitting Balance and Reactions Static Sitting Balance Ability Normal Dynamic Sitting Balance Ability Normal Standing Balance and Reactions Static Standing Balance Ability Normal Dynamic Standing Balance Ability Good Comments Other Balance Tests/Deviations/Treatment Standing - UE overhead ROM : with no difficulty. Standing - walking in [place] one direction then another without assistive devices. M5 PT-IP Objective Assessments Start: 05/24/19 12:04 Freq: NEEDED Status: Active Protocol: Document 05/24/19 13:56 NFW (Rec: 05/24/19 14:32 [facility] [id number]) Orientation Orientation/Cognition Level of Alertness Alert Orientation Name Age Birthday Month Date Year Day of Week Place Situation Language Function Ability No Deficits Noted Safety Awareness Understands Safety Issues Memory Description No Deficits Noted Gross Range of Motion Upper Extremity ROM Assessment Within Functional Limits Lower Extremity ROM Assessment Within Functional Limits Strength Upper Extremity Strength Hand left hand head inspector slightly weaker than right. Lower Extremity Strength Assessment Within Functional Limits Coordination Assessment Assessment Finger to Nose Test Normal Performance Pronation/Supination Test Normal Performance Foot Tapping Test Normal Performance Sensation Assessment Sensation Gross Sensation WNL Light Touch Intact Proprioception (Position) Intact Muscle Tone Muscle Tone WNL Yes M7 PT-IP Assessment and Plan Start: 05/24/19 12:04 Freq: NEEDED Status: Active Protocol: Document 05/24/19 13:56 NFW (Rec: 05/24/19 14:32 NF [id number]) PT Summary Assessment and Plan Potential Rehabilitation Potential Excellent Status of Condition at Evaluation Evolving Summary Impairments Balance Coordination Bed Mobility Transfers Gait Activity Tolerance Progress Towards Goals Progressing Toward Goals Assessment Summary Patient with recent bout of LOC, admitted to for observation and assessment for possible TIA/CVA. Patient alert and answering all questions, follow directions well. Shows good form with transfers. Overall, endurance is low. Will need to assess ability to ascend and descend 1-2 steps with single handrail . Goals Bed Mobility Goal Independent Transfer Goal Independent Gait Goal Independent Gait Distance 100 Other Goals Ascend and descend 1-2 steps safely with single handrail. Days to Meet Goals 2 Frequency of Treatment Frequency Of Treatment Once a Day Treatment Plan Physical Therapy Treatment Plan Bed Mobility Training Transfer Training Gait Training Therapeutic Exercise Balance Retraining Neuromuscular Re-ed Coordination Retraining Recommendations To Nursing Amount of Assist Needed 1 Person Assist Discharge Recommendations Other Discharge Recommendations Await results of MRI.
--- NOTE | 2019-05-24 15:42 | OT.IP.EVAL ---
Past Medical History (Last Reviewed 05/24/19 @ 00:59 by BALDEMAR Leggett) CVA (cerebral vascular accident) (Acute) Essential hypertension (Chronic) History of CVA (cerebrovascular accident) (Chronic) History of hysterectomy (Chronic) Surgical History (Last Reviewed 05/24/19 @ 00:59 by BALDEMAR Leggett) History of bilateral breast reduction surgery (Chronic) History of cataract extraction with lens replacement (Chronic) History of cholecystectomy (Chronic) Occupational Therapy Inpatient Evaluation/Re-Eval M1 PT/OT-IP Prior Functional Status Start: 05/24/19 12:04 Freq: NEEDED Status: Active Protocol: Document 05/24/19 15:42 PJM (Rec: 05/25/19 08:56 PJM [id number]) Medical Review Prior Functional Status Medical History Reviewed Yes Diet/Fluid Consistency Regular Communication WNL, very talkative and distracts self with conversation Mobility and Gait Prior to admit, pt ambulated in home without using an assistive device. Pt used cane or FWW when I needed it. Activities of Daily Living and IADL's Patient states she is independent with self care except needs assist with her shoes and socks.Her roommate, Liliya, assists PRN. Prior Functional Level (Other details) Patient states she recently bought a new car for herself but has not driven much. She is waiting to take a refresher course on driving. Her roommate does most of the driving, grocery shopping and cooking. The patient does most of the vacuuming in their home, she is independent with doing her laundry. Pt states she recently started having her medications bubble packed. She manages her own finances. Social History Household Members friend(s) Living Arrangements Apartment/Condo Number of Floors (Floors) One Floor Number of Stairs To Enter/Railing? 2 stairs with R handrail ascending Home Environment Walk in Shower Home Equipment Shower Seat with Backrest Long Handled Shoe Horn Director Public Service Sock Aid Employment Status Retired M2 OT-IP Current Condition Start: 05/25/19 08:32 Freq: Status: Active Protocol: Document 05/24/19 15:42 PJM (Rec: 05/25/19 08:56 PJM [id number]) Occupational Therapy Current Condition Current Condition Evaluation Date 05/24/19 Treatment Diagnosis assess self care for return home after syncopal episode, stroke workup neg Diagnosis Onset Date 05/23/19 Post Operative Precautions Other Precautions fall risk M3 OT- IP Subjective and Pain Start: 05/25/19 08:32 Freq: Status: Active Protocol: Document 05/24/19 15:42 PJM (Rec: 05/25/19 08:56 PJ [id number]) OT- Subjective Occupational Therapy Visit Type Type Initial Evaluation Visit Start Time 15:00 Visit Stop Time 15:42 Total Visit Minutes 42 Notes Pt's roommate Liliya here this session. Occupational Therapy Visit Comments Patient Comments I think I need to go back to out pt OT for a tuneup on my L hand. It is tight. Patient/Caregiver Goals to go home today OT Pain Assessment Pain When Pain Assessed After Treatment Pain Present Pain Present Denied Pain M4 OT- IP ADL's Start: 05/25/19 08:32 Freq: Status: Active Protocol: Document 05/24/19 15:42 PJM (Rec: 05/25/19 08:56 PJ [id number]) OT TGI-Plpe-Mubnvys General Evaluation Self-Feeding Ability Independent OT ADL-Grooming General Evaluation Grooming Ability Independent Comments OT Grooming Comments standing at sink OT ADL-Oral Care Comments Oral Care Comments did not occur OT ADL-Dressing General Eval Upper Body Dressing Ability Standby Assistance Lower Body Dressing Ability Standby Assistance Areas Needing Assistance Socks Shoes Assistive Devices Dressing Assistive Devices Long Handled Shoe Horn Director Public Service Sock Aid Comments OT Dressing Comments Pt has been having roommate assist with socks and taken laces out of her tennis shoes to create slip on. Provided education re: use of crown ceramist and sock aid which pt already has at home. Provided long shoe horn and provided education re: elastic laces or other shoe options. OT ADL-Toileting General Evaluation Toileting Ability Independent Areas Needing Assistance Manage Clothing Perform Perineal Hygiene OT ADL-Bathing Comments OT Bathing Comments did not occur; pt states she has necessary bathroom safety equipt at home. She did not provide specifics. M5 OT- IP IADL's Start: 05/25/19 08:32 Freq: Status: Active Protocol: Document 05/24/19 15:42 PJM (Rec: 05/25/19 08:56 PJ [id number]) OT-Instrumental Activities of Daily Living Deficits IADL Deficits Identified Deficits Home Safety Awareness Awareness of Need for Assistance at Home Good Awareness Home Safety Comments Pt's roommate does most principal embedded software engineer. Medication Management Medication Management Comments pt having meds bubble packed by pharmacy Money Management Money Management No Deficits Identified Money Management Comments pt has been managing own finances and states she trades stocks daily Meal Preparation Meal Preparation Caregiver Provides Assist Meal Preparation Comments roommate does most of cooking Diesel Crane Operator Diesel Crane Operator Caregiver Provides Assist Diesel Crane Operator Comments roommate assists Driving Driving Caregiver Provides Assist Driving Comments roommate assists M6 OT- IP Functional Cognition Start: 05/25/19 08:32 Freq: Status: Active Protocol: Document 05/24/19 15:42 PJM (Rec: 05/25/19 08:56 [facility] [id number]) Cognitive Factors Limiting Selfcare Function Cognitive Ability Level of Alertness Alert Patient Orientation Name Age Month Place Situation Attention Span Ability Capable of Focused Attention Ability to Follow Commands Able to Follow One Step Commands Cognitive Comments Cognitive Assessment Comments Pt very verbal and distracts self with tangential conversation. [place] thinking and some decreased insight into her current level of function noted. OT- Vision and Hearing OT- Hearing Assessment OT- Hearing Assessment WFL OT- Vision Assessment Visual Acuity Glasses All The Time Visual Attentiveness WFL Vision Assessment Comments Visual king appear intact M7 OT- IP Mobility and Balance Start: 05/25/19 08:32 Freq: Status: Active Protocol: Document 05/24/19 15:42 PJM (Rec: 05/25/19 08:56 [facility] [id number]) OT-Transfer Assessment Sit to and From Stand Sit to and from Stand Independent Transfers Transfer Ability Independent Technique Transfer Technique Stand Step Pivot Devices Transfer Assistive Devices Front Wheeled Walker OT- Gait Assessment Comments Gait Ability Comments see P.T. notes OT- Balance Assessment Sitting Balance and Reactions Static Sitting Balance Ability Good Dynamic Sitting Balance Ability Good Standing Balance and Reactions Static Standing Balance Ability Good M8 OT- IP Objective Assessments Start: 05/25/19 08:32 Freq: Status: Active Protocol: Document 05/24/19 15:42 PJM (Rec: 05/25/19 08:56 [facility] [id number]) OT Gross Range of Motion Upper Extremity Range of Motion Assessment Left Impaired ROM Impairments mild LUE lag noted during BUE AROM, but WFL for self care OT Strength Upper Extremity Strength Assessment Left Impaired Hand Melter Helper Strength Hand Dominance Right Comments Strength Comments LUE slightly weaker than RUE. Pt has hx of stroke with residual LUE weakness. OT- Coordination Assessment Upper Extremity Finger to Nose Test Left UE Impaired Finger Tapping Test Left UE Impaired Comments Coordination Comments L hand has significantly decreased isolated finger motion noted with slowed gross and fine motor MOHAN's noted. Pt using L hand as assist consistently with self care tasks. OT-Muscle Tone Assessment Muscle Tone WNL No Muscle Tone Location Left Upper Extremity Type of Tone Hypertonicity Severity of Tone Mild Candido Grade Scale Grade 1 Comments Muscle Tone Comments Subtle LUE flexion synergy pattern noted at shoulder and elbow with more pronounced deficits in L hand resulting in impaired isolated finger movement. OT Sensation Assessment Comments Summary Comments Pt states LUE/hand sensation WNL. M9 OT- IP Assessment and Plan Start: 05/25/19 08:32 Freq: Status: Active Protocol: Document 05/24/19 15:42 PJM (Rec: 05/25/19 08:56 PJM [id number]) OT Summary Assessment and Plan Potential Rehabilitation Potential Good Summary Progress Towards Goals Safe For Discharge Assessment Summary Low complexity OT assessment completed on this 83 yr old woman admitted under OBS status after syncopal episode. Stroke work up negative. Pt appears to back to her baseline level of self care function. She feels her L hand has become tighter lately and would like to return to out pt OT services. She will pursue a referral from her auto body painter. No further acute care OT services needed and pt plans to discharge home today with her usual assist from her roommate. Frequency of Treatment Frequency Of Treatment Discharge
--- NOTE | 2019-05-24 15:43 | CM.DANOTE ---
Discharge Planning/Care Management DCP: assessment: case received, EMR reviewed. Dr. Turk reported in Team Rounds that pt would might d/c today pending MRI results. PT/OT/HOME SCHOOL TEACHER were ordered. Met with pt now after discussion with therapy team. Introduced self and role. Pt's friend/housemate/helper Liliya was present. Introduced self and role. Pt very agreeable to talk. Pt lives in a condo in [facility]. She has an arrray of elderly friends, many of whom have lived in her home in past settings and other states and have done some caregiving for her. She admitted last night to care of hospitalist team. PCP: Dr. Idalia Bashir Has also recently consulted orthopedic surgeon Dr. Foote re joint/mobiltiy issues and was referred to the [facility] team. They recommended tx plus OUPT PT and she sees Zachery Mckeon at the [facility]. Liliya drives her to her appts, does all the shopping and the cooking. Pt says frequently in front of Liliya that she is losing her memory. Her backup plan is her POTha Escalera/Ramos Su if Liliya should be suddenly ill and encouraged her to talk further re options with [facility]. She knows about skilled nursing centers but says she has no desire to be other than in her own place. She appears to have the funds for any needed care and readily accepts [facility] Booklet/2019 with specific discussion of caregiver agencies. It is unclear if she has any plan to assist Liliya as she did not offer this information and this did not seem to be an appropriate question at this time. Pt does say she is updating her will and her DPOA paperwork as she want to make sure all is in order and is working with Romeo Acosta/trust and estates attorney/Tanna. Pt is not homebound and does go out to eat etc with Liliya driving. She says she does all her shopping on [address] and I have a garage full of stuff at this point. Dr. Turk was in to see pt this afternoon. Pt reports that Dr. Turk told her she was still waiting for the results of the ECHO before she can ok her for home. Liliya will wait until it is known if pt will d/c today. OT Kae has been updated and is in seeing pt now. Will check in tomorrow if pt is still here. At this point: admission status is OBS: confirmed by UR ASHOK Rojas. CM Discharge Assessment Start: 05/24/19 15:37 Freq: Status: Active Protocol: Document 05/24/19 15:37 ITV (Rec: 05/24/19 15:42 ITV [id number]) Discharge Planning Assessment Advance Directives? Yes Advance Directives on File No History Provided By Patient Friend Medical Record Prior Living Arrangements Apartment/Condo Household Members friend(s) Comment lives with long time friend who is assists her: Liliya. Liliya does appear to have her own health issues. Type of transporation used prior to Relies on Others admit Independent with ADL's No Caregiver for Another No Patient/Family Preference OP PT Therapy Review Status In Process
--- NOTE | 2019-05-24 16:02 | PC.NURSE ---
Neuro: Pt has had a previous stroke/tia. NIH - 7. Off due to lt arm weakness, sensation changes to lt arm. Has difficulty moving arms and performing some of the tasks required by the NIH. (touch nose, touch examiners finger). 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 Otherwise oriented and not having any problems. Working w/OT/PT and has her good friend here. They help each other at home. Wants to d/c home when she is able to do so. Cont w/poc.
--- NOTE | 2019-05-24 16:57 | PT.IPTN ---
Physical Therapy Treatment Note M2 PT-IP Current Condition Start: 05/24/19 12:04 Freq: NEEDED Status: Active Protocol: Document 05/24/19 13:56 NFW (Rec: 05/24/19 14:32 NF [id number]) Physical Therapy Current Condition Current Condition Evaluation Date 05/24/19 Treatment Diagnosis Patient with bout of LOC, possible TIA/CVA. Onset Date 05/23/19 Weight Bearing Status Weight Bearing Status Full Weight Bearing M3 PT-IP Subjective Start: 05/24/19 12:04 Freq: NEEDED Status: Active Protocol: Document 05/24/19 13:56 NFW (Rec: 05/24/19 14:32 NF [id number]) Subjective Physical Therapy Visit Type Type Initial Evaluation Visit Start Time 13:00 Visit Stop Time 13:55 Total Visit Minutes 55 Notes Currently patient has no complaints of pain. Prior to admittance she was seeing a physical therapist as OP for sciatica. Number of ROBOTICS TESTING TECHNICIAN Visits 0 Physical Therapy Visit Comments Patient Comments Patient concerned with her housemate and whether she will be able to assist her with her ADLs and home activities. Patient Goals Goal is to return to her condo with housemate. Therapy Pain Assessment Pain When Pain Assessed During Mobility Pain Present Pain Present Denied Pain M4 PT-IP Mobility and Gait Start: 05/24/19 12:04 Freq: NEEDED Status: Active Protocol: Document 05/24/19 16:05 NFW (Rec: 05/24/19 16:12 NFW [id number]) Stair Climbing Assessment Evaluation Level of Assist On Stairs Standby Assistance M5 PT-IP Objective Assessments Start: 05/24/19 12:04 Freq: NEEDED Status: Active Protocol: Document 05/24/19 13:56 NFW (Rec: 05/24/19 14:32 NF [id number]) Orientation Orientation/Cognition Level of Alertness Alert Orientation Name Age Birthday Month Date Year Day of Week Place Situation Language Function Ability No Deficits Noted Safety Awareness Understands Safety Issues Memory Description No Deficits Noted Gross Range of Motion Upper Extremity ROM Assessment Within Functional Limits Lower Extremity ROM Assessment Within Functional Limits Strength Upper Extremity Strength Hand left 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 Lower Extremity Strength Assessment Within Functional Limits Coordination Assessment Assessment Finger to Nose Test Normal Performance Pronation/Supination Test Normal Performance Foot Tapping Test Normal Performance Sensation Assessment Sensation Gross Sensation WNL Light Touch Intact Proprioception (Position) Intact Muscle Tone Muscle Tone WNL Yes M7 PT-IP Assessment and Plan Start: 05/24/19 12:04 Freq: NEEDED Status: Active Protocol: Document 05/24/19 15:51 NFW (Rec: 05/24/19 16:00 NFW [id number]) PT Summary Assessment and Plan Summary Assessment Summary Patient is at baseline level. Is ready for discharge home with housemate. Discharge Recommendations Other Discharge Recommendations Discharge home with housemate.
--- NOTE | 2019-05-24 17:25 | PC.NURSE ---
pt AO and receptive to care. Up to BR with FWW and worked with PT. Provided DC instructions; no questions remain. Removed PIVs (left AC and right wrist). Tele removed. All pt belongings, including home medications packed up and given to patient. pt transferred to private vehicle via wheelchair. No
--- NOTE | 2019-05-25 15:35 | P.DS_ITS ---
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 She also states she was trying to pour herself vodka over ice and that is the last time she remembers anything. She states that they were preparing their own separate dinners and the next thing she realized was EMS Crews speaking to her. She does not remember anything that her friend informed EMS or the Emergency Department of. She was stated to have started to slur her speech. In the emergency department they did a CT which was negative and her NIHHS score was 0, and they gave her aspirin. No medical records are available as her primary care provider's EMR is not available to us. She states that she had a CVA approximately 5 years ago in [place] and spent several days at the hospital there. She then had another 1 approximately 3 years ago when she was told that she had fallen onto her dinner. During the 2nd CVA she was told that she likely had a number of different infarcts. She states a medical history of the 2 strokes, hypertension and sciatica. She is unable to tell me what medication she is taking. She recently had them converted to a pill pack. Discharge Providers Date of admission: 05/23/19 22:15 Discharge Date: 05/24/19 Primary care physician: Idalia Bashir MD Consults: 05/23/19 23:29 Consult to Occupational Therapy Evaluate & Treat Comment: Physician Instructions: Evaluate and treat Consult to Physical Therapy Evaluate & Treat Comment: Physician Instructions: Evaluate and Treat 05/23/19 23:32 Consult to Speech Therapy Evaluate & Treat Comment: Physician Instructions: Evaluate and treat Discharge provider: Juany Turk MD Summary Discharge Diagnosis: 1. Probable TIA 2. Prior history of stroke 3. Hypothyroid 4. Hyperlipidemia 5. Hypertension Hospital Course: Patient was admitted to the hospital for possible TIA versus CVA. Head CT and CT angio was unremarkable except for prior strokes. The patient had an MRI of the brain the following day which showed no new areas of infarction. The MRI findings are as follows:No findings of acute or subacute infarction can be seen. Remote right MCA territory infarction. Note is made of age-appropriate brain parenchymal volume loss and chronic small vessel ischemic changes. No masses or abnormal enhancement can be seen. BRAIN MR ANGIOGRAM: Only a scant amount of flow can be seen within the distal right vertebral artery. This may simply be secondary to the left vertebral artery being dominant to the right. NECK MR ANGIOGRAM: There is a 70-80% stenosis seen involving the right proximal internal carotid artery. No definite stenosis can be seen involving the left proximal internal carotid artery. The CT appearance is likely related to artifact. Likely 50% stenosis at the origin of the left vertebral artery. The left vertebral artery is dominant to the right. Patient was seen and evaluated and had no further speech abnormalities. She was seen by physical therapy occupational the as well as speech therapy and deemed appropriate for discharge home. Patient will follow up with her primary care physician for further evaluation. Exam Vital Signs (past 8 hours): Oxygen Delivery Method Room Air Oxygen Flow Rate 0 Narrative Exam Narrative: Delightful female resting comfortably in no obvious distress Lungs: Clear to auscultation Cardiac exam: Regular rate and rhythm normal S1-S2 Abdomen soft nontender nondistended Extremities: No edema Neuro exam: Nonfocal Objective Labs Result Diagrams: 05/24/19 04:52 05/24/19 04:52 Discharge Plan Discharge Plan Patient Disposition: Home Discharge Med Rec/Prescriptions Prescriptions: Continued levothyroxine 175 mcg tablet 175 mcg PO DAILY RF: 0 aspirin-dipyridamole 25-200 mg capsule, ER multiphase 12 hr 1 cap PO BID RF: 0 gabapentin 100 mg capsule 100 mg PO TID RF: 0 oxybutynin chloride 5 mg tablet 5 mg PO BID RF: 0 rosuvastatin 40 mg tablet 40 mg PO DAILY RF: 0 Follow up/Referrals: Idalia Bashir MD [Primary Care Provider] - Provider Discharge Instructions Diet: Low-sodium and Low-cholesterol Activity: as tolerated Visit Report/Discharge Packet Instructions: DI for Transient Ischemic Attack, How to Prevent Falls Discharge Data Primary Care Provider: Idalia Bashir Attending Provider: Lea Moffett Admit Date/Time: 05/23/19 22:15 Discharges patient from system. Discharge Date/Time: 05/24/19 17:20 Quality Stroke Contraindication Not Initiating IV-Tpa: Contraindicated Onset of Symptoms Date: 05/23/19 Onset of Symptoms Time: 19:50 Symptom Onset Unknown: Yes Contraindication Antithromb by Day Two: Contraindicated Rehab Services Assessed: Rehabilitation therapy VTE Deep Vein Thrombosis/Pulmonary Embolism Present on Admission: No
== END 2019-05-24 17:20 | disposition home or self-care (01) ==
LOC: ED 22:10 → AC 22:16
PROVIDERS: Admitting Provider Nurse Practitioner Family; Emergency Provider Emergency Medicine; Family Provider Internal Medicine; PCP Internal Medicine; Visit Provider Nurse Practitioner Family
DX: R47.81 Slurred speech (principal); I10 Essential (primary) hypertension; Z86.73 Personal history of transient ischemic attack (TIA), and cerebral infarction without residual deficits; E03.9 Hypothyroidism, unspecified; E78.5 Hyperlipidemia, unspecified
CPT/HCPCS: 36415; 70450; 70496; 70498; 70548; 70553; 80053; 80061; 80320; 83690; 83880; 84484; 85025; 85610; 85730; 92523; 93005; 93306; 96360; 96372; 97162; 97165; 97535; 99283; 99291; G0378; A9579; J1650; Q9967

== ENCOUNTER → 2019-07-11 10:12 | Outpatient (CLI) | payer MEDICARE, BC, SELFPAY ==
--- NOTE | 2019-07-11 | DI.US.S_ITS ---
PROCEDURE: US THYROID INDICATIONS: THYROID NODULE SEEN ON CAROTID U/S TECHNIQUE: Real-time scanning was performed of the thyroid gland, with image documentation. COMPARISON: [facility], US, US CAROTID DOPPLER BI, 06/28/2019, 11:28. FINDINGS: Right: Thyroid lobe measures 3.8 x 1.2 x 1.0 cm, and is homogeneous in echotexture. Left: Thyroid lobe measures 4.2 x 1.7 x 1.8 cm, and is homogenous in echotexture. Isthmus: 8.0 mm thick. Nodule number: 1 Location: Left mid Size: 1.8 x 1.3 x 1.6 cm. Composition: Predominantly cystic Echogenicity: Hypoechoic Shape: wider than tall. Margins: Smooth Echogenic foci: Macrocalcifications Total points: 4 ACR TI-RADS category: Moderately suspicious IMPRESSION: Moderately suspicious left thyroid nodule. Recommend sonographically directed fine needle aspiration. ACR TI-RADS definitions and recommendations: TI-RADS 1 (benign): 0 points. FNA not needed. TI-RADS 2 (not suspicious): 2 points. FNA not needed. TI-RADS 3 (mildly suspicious): 3 points. * FNA if 2.5 cm or larger, follow up if 1.5 cm or larger (at 1, 3, and 5 years). TI-RADS 4 (moderately suspicious): 4-6 points. * FNA if 1.5 cm or larger, follow up if 1 cm or larger (at 1, 2, 3, and 5 years). TI-RADS 5 (highly suspicious): 7 points or more. * FNA if 1 cm or larger, follow up if 0.5 cm or larger (every year for 5 years). Dictated by: Alexis ORTIZ Interpreted: Jelly Kendall MD on 07/11/2019 at 16:30 Approved by: Jelly Kendall M.D. on 07/11/2019 at 17:32
== END ==
PROVIDERS: PCP Internal Medicine; Visit Provider Internal Medicine
DX: E04.1 Nontoxic single thyroid nodule (principal)
CPT/HCPCS: 76536

== ENCOUNTER → 2019-07-25 09:04 | Outpatient (CLI) | payer MEDICARE, BC, SELFPAY ==
--- NOTE | 2019-07-25 | DI.US.S_ITS ---
PROCEDURE: US FINE NEEDLE ASPIRATION INDICATIONS: LEFT NODULE TECHNIQUE: The indications, alternatives, benefits, risks, and complications of the procedure were explained to the patient. Written informed consent was obtained and placed in the chart. The thyroid region was examined sonographically and a site was chosen for ultrasound guided percutaneous sampling. The skin was prepared and draped in the usual fashion, and anesthetized with 1% lidocaine infiltrated from the skin down to the thyroid gland. Multiple passes were then performed, with contents emptied into an appropriate pathology specimen container. A bandage was applied to the area of access at completion of the study. COMPARISON: None. FINDINGS: Location(s) of lesion(s) sampled: Left lobe [place]: 25 and 22 gauge hypodermic needles. Number of passes: 7 Medications: 1% lidocaine for local anaesthesia. Complications: None. IMPRESSION: Successful ultrasound-guided thyroid nodule fine needle aspiration, with cytology results pending. Please see chart below for management recommendations based on cytology results. [facility] ReportingRecommendationsNon-diagnostic* Repeat US-guided FNA, with on-site cytology evaluation if possible. * Repeated non-diagnostic nodules without high suspicion US features: close observation vs surgical consult. * Consider surgery if nodule has high suspicion US features, grows >20% in 2 dimensions on followup, or patient has clinical risk factors for malignancy. Benign* If nodule has high suspicion US features: repeat US and FNA within 12 months. * If nodule has low to intermediate suspicion US features: repeat US at 12-24 months. If nodule grows (20% increase in at least 2 dimensions, with minimal increase of 2 mm or >50% change in volume), or development of new suspicious US features, then repeat FNA or continue followup. * If nodule has very low suspicion US features: followup US at >24 months. Atypia of undetermined significance, follicular lesion of undetermined significanceRepeat FNA, molecular testing, followup US, or surgical consult.Follicular neoplasm, suspicious for follicular neoplasmSurgical consult; also consider molecular testing. Suspicious for malignancySurgical consult.MalignantSurgical consult. Dictated by: Chance Moffett M.D. on 07/25/2019 at 15:48 Approved by: Chance Moffett M.D. on 07/25/2019 at 15:49
--- NOTE | 2019-07-25 | PATH_ITS ---
Note [facility] Accession Number: [id number] TESTS RESULT FLAG UNITS REF RANGE LAB Clinician Provided Cytology Information No. of containers..01 ThinPrep Vial No. of containers..12 Previously Prepared Cytology Slide LEFT THYROID NODULE DIAGNOSIS: LEFT THYROID NODULE NEGATIVE FOR MALIGNANT CELLS. BETHESDA CATEGORY II - BENIGN. SPECIMEN CONSISTS OF A HETEROGENEOUS LYMPHOID POPULATION, HURTHLE CELLS, AND FOLLICULAR CENTER FRAGMENTS. THIS PATTERN IS CONSISTENT WITH A CHRONIC LYMPHOCYTIC (BENY'S) THYROIDITIS IN THE APPROPRIATE CLINICAL SETTING. Pathologist ICD10: 01 E06.3 01 HYPOTHYROIDISM. 01 Camacho Anne MD, PhD, Pathologist NPI- [id number] Warren Dougherty, Front Desk Person ([facility]) 01 30 CC, COLORLESS, CLEAR RECEIVED: 6 ALCOHOL FIXED AND 6 QUICK STAINED SLIDES WITH 1 RNA VIAL FOR FURTHER TESTING. /VDU 07/26/2019 1053 Local FLAG LEGEND: L-Low Normal,H-High Normal,LL-Alert Low,HH-Alert High <-Panic Low,>-Panic High,A-Abnormal,AA-Critical Abnormal Performed at: 01 =Z [facility] [address], [place] [address] Bob Diaz MD, Performed at: 01 [facility] [address], [place], [place] [id number] MD Bob Diaz MD Phone: [phone]
== END ==
PROVIDERS: PCP Internal Medicine; Visit Provider Internal Medicine
DX: E04.1 Nontoxic single thyroid nodule (principal)
CPT/HCPCS: 10005

== ENCOUNTER → 2019-07-31 11:18 | Outpatient (CLI) | payer MEDICARE, SELFPAY ==
[2019-07-31 12:24] LABS: Alanine Aminotransferase 10 IU/L (9-52); Aspartate Aminotransferase 24 IU/L (14-36); BUN Creatinine Ratio 16.7 (6-22); Blood Urea Nitrogen 15 mg/dL (7-17); Calcium 9.4 mg/dL (8.4-10.2); Carbon Dioxide 28 mmol/L (22-32); Chloride 102 mmol/L (98-107); Cholesterol 146 mg/dL (140-199); Estimated Glomerular Filt Rate 59.8 mL/min (>60); Glucose 106 mg/dL (80-110); HDL Cholesterol 44 mg/dL (40-60); HEMOLYSIS 20 (0-50); LDL Cholesterol Calculated 80 mg/dL (<100); Potassium 4.4 mmol/L (3.4-5.1); Sodium 141 mmol/L (137-145); Triglycerides 109 mg/dL (35-150)
== END ==
PROVIDERS: PCP Internal Medicine; Visit Provider Internal Medicine
DX: N18.3 Chronic kidney disease, stage 3 (moderate) (principal); E78.5 Hyperlipidemia, unspecified; E03.9 Hypothyroidism, unspecified
CPT/HCPCS: 36415; 80048; 80061; 84443; 84450; 84460

== ENCOUNTER → 2019-08-28 15:19 | Outpatient (CLI) | payer MEDICARE, BC, SELFPAY ==
--- NOTE | 2019-08-28 15:24 | DI.RAD.S_ITS ---
PROCEDURE: XR CHEST 2V INDICATIONS: COUGH TECHNIQUE: 2 views of the chest were acquired. COMPARISON: None. FINDINGS: Surgical changes and devices: None. Lungs and pleura: There is prominence of the pulmonary vasculature and mild interstitial opacities noted bilaterally. No focal lung consolidation. No pleural effusions or pneumothorax. Nonreducible hiatal hernia. Mediastinum: Mediastinal contours are normal. Heart size is normal. Bones and chest wall: No suspicious bony abnormalities. Soft tissues appear unremarkable. IMPRESSION: 1. Prominence of the pulmonary vasculature and diffuse interstitial opacities suggesting mild CHF and/or atypical pneumonia may be present. Recommend clinical correlation and followup. Dictated by: Alexis ORTIZ Interpreted: Jelly Kendall MD on 08/28/2019 at 17:04 Approved by: Jelly Kendall M.D. on 08/28/2019 at 17:50
== END ==
PROVIDERS: PCP Internal Medicine; Visit Provider Physician Assistant
DX: R05 Cough (principal)
CPT/HCPCS: 71046

== ENCOUNTER → 2019-09-01 14:21 | Outpatient (CLI) | payer MEDICARE, SELFPAY | PROVIDERS: PCP Internal Medicine; Visit Provider Internal Medicine | DX: R05 Cough (principal) | CPT/HCPCS: 87070; 87205 ==

== ENCOUNTER → 2019-10-30 14:38 | Outpatient (ROUT) | payer MEDICARE, SELFPAY ==
[2019-10-30 15:24] LABS: Hemoglobin A1C% w Est Avg Glu 5.9 % (4.0-6.0)
[2019-10-30 15:27] LABS: BUN Creatinine Ratio 12.7 (6-22); Blood Urea Nitrogen 14 mg/dL (7-17); Calcium 9.6 mg/dL (8.4-10.2); Carbon Dioxide 27 mmol/L (22-32); Chloride 102 mmol/L (98-107); Estimated Glomerular Filt Rate 47.3 mL/min (>60); Glucose 80 mg/dL (80-110); HEMOLYSIS < 15 (0-50); Potassium 4.6 mmol/L (3.4-5.1); Sodium 139 mmol/L (137-145)
== END ==
PROVIDERS: PCP Internal Medicine; Visit Provider Internal Medicine
DX: E11.9 Type 2 diabetes mellitus without complications (principal); I50.32 Chronic diastolic (congestive) heart failure
CPT/HCPCS: 80048; 83036

== ENCOUNTER 2021-01-31 11:21 | Emergency (ER) | payer MEDICARE, BC, SELFPAY ==
[2021-01-31 11:30] VITALS: BP 141/80; PULSE 100; RESP 16; TEMP 37.3; O2SAT 96; BMI 40.7
--- NOTE | 2021-01-31 11:39 | ED_ITS ---
HPI - General Adult General Chief complaint: Fall Stated complaint: fell this week from bed/pain left side Time Seen by Provider: 01/31/21 11:28 Source: patient Mode of arrival: Wheelchair Limitations: no limitations History of Present Illness HPI narrative: Patient is an 85-year-old female. Is not on anticoagulation. A couple days ago she fell while getting out of bed. She states she is unsure if she passed out but does not think that she hit her head. She does have to get out of bed several times at night because of urination issues. After she fell her roommate was unable to get her up. The paramedics had to come and help her get back into bed. She did not come to get evaluated. Comes to the emergency department today for left-sided pain. Related Data Home Medications Medication Instructions Recorded Confirmed aspirin-dipyridamole 1 cap PO BID 05/24/19 05/24/19 gabapentin 100 mg PO TID 05/24/19 05/24/19 levothyroxine 175 mcg PO DAILY 05/24/19 05/24/19 oxybutynin chloride 5 mg PO BID 05/24/19 05/24/19 rosuvastatin 40 mg PO DAILY 05/24/19 05/24/19 Allergies Allergy/AdvReac Type Severity Reaction Status Date / Time No Known Drug Allergies Allergy Verified 01/31/21 11:35 Review of Systems Constitutional Constitutional: Denies fatigue, Denies fever(s), Reports frequent falls and Denies headache(s) Eyes Eyes: Denies change in vision ENT Ears, Nose, Mouth, and Throat: Denies headache(s) Cardiovascular Cardiovascular: Denies chest pain and Denies dyspnea Respiratory Respiratory: Denies dyspnea Gastrointestinal Gastrointestinal: Denies abdominal pain, Denies nausea and Denies vomiting Musculoskeletal Musculoskeletal: Denies arthralgias and Denies myalgias Integumentary/Breasts Skin/Breast: Denies rash Neurologic Neurologic: Denies behavioral changes, Reports frequent falls and Denies headache(s) Psychiatric Psychiatric: Denies behavioral changes Endocrine Endocrine: Denies fatigue and Denies flushing Hematologic/Lymphatic On Anticoagulants: No Allergic/Immunologic Allergic/Immunologic: Denies urticaria Patient History Medical History (Updated 01/31/21 @ 12:54 by Yimi Luna DO) CVA (cerebral vascular accident) Essential hypertension History of CVA (cerebrovascular accident) Surgical History History of bilateral breast reduction surgery History of cataract extraction with lens replacement History of cholecystectomy History of hysterectomy Social History household members: friend(s) Smoking Status: Never smoker alcohol intake: current Smoking Status: Never smoker alcohol intake frequency: holidays/special occasions only Substance Use Type: marijuana Exam Initial Vital Signs Initial Vital Signs: Vital Signs Temperature 99.1 F 01/31/21 11:30 Pulse Rate 100 H 01/31/21 11:30 Respiratory Rate 16 01/31/21 11:30 Blood Pressure 141/80 H 01/31/21 11:30 Pulse Oximetry 96 01/31/21 11:30 Const General: cooperative, comfortable and well developed Limitations: mental status not altered HENMT Head: normal to inspection and normocephalic Chest Chest: tenderness (Left-sided chest wall) Resp Effort & Inspection: normal respiratory effort Back/Spine/Pelvis Cervical Spine: No cervical spinal tenderness Skin Other: Bruising around the 2nd and 5th toe of the left foot. Extrem General: capillary refill normal Psych Appearance: grossly normal and well kempt Course Orders Ordered: ED Orders 01/31/21 11:39 XR foot LT min 3V Stat XR ribs LT min 3V w CXR1V Stat 01/31/21 11:40 Basic Metabolic Panel Stat Complete Blood Count AUTO DIFF Stat EKG-12 Lead Stat Vital Signs Vital signs: Vital Signs - 8 hr 01/31/21 11:30 Temperature 99.1 F Pulse Rate 100 H Respiratory Rate 16 Blood Pressure 141/80 H Pulse Oximetry 96 Medical Decision Making Lab Data Lab results reviewed: Yes I reviewed the patient's lab results. Result diagrams: 01/31/21 11:55 01/31/21 11:55 Labs: Lab Results 01/31/21 01/31/21 Range/Units 11:55 11:55 WBC 5.0 (4.5-11.0) X10^3/uL RBC 4.08 (4.0-5.2) X10^6/uL Hgb 12.4 (12.0-16.0) g/dL Hct 37.9 (36-46) % MCV 92.9 (80-100) fL MCH 30.4 (26-34) PG MCHC 32.7 (30-36) % RDW 14.6 (11.6-14.8) % Plt Count 234 (150-400) X10^3/uL Neut % (Auto) 56.3 (50-75) % Lymph % (Auto) 31.3 (25-40) % Cottle % (Auto) 9.3 (3-14) % Eos % (Auto) 2.5 (2-4) % Baso % (Auto) 0.6 (0-2) % Neut # (Auto) 2800 (3356-9992) /uL Lymph # (Auto) 1600 (7827-8034) /uL Cottle # (Auto) 500 (0-900) /uL Eos # (Auto) 100 (0-450) /uL Baso # (Auto) 0 (0-100) /uL Sodium 140 (137-145) mmol/L Potassium 4.2 (3.4-5.1) mmol/L Chloride 103 (98-107) mmol/L Carbon Dioxide 29 (22-32) mmol/L BUN 14 (7-17) mg/dL Creatinine 1.13 H (0.52-1.04) mg/dL Estimated GFR 45.8 L (>60) mL/min BUN/Creatinine Ratio 12.4 (6-22) Glucose 111 H (80-110) mg/dL Calcium 9.7 (8.4-10.2) mg/dL Imaging Data rib x ray: Radiologist's Impression: [address] [id number] ReportSigned Patient: Michela Cao LMR#: [id number]: 5Acct:[id number]/Sex: 85 / FDate of Service: 01/31/21Loc: EDAccession Number: [id number] Procedure: XR ribs LT min 3V w CXR1V Ordering Provider: Yimi Luna D.O. PROCEDURE: XR RIBS LT MIN 3V W CXR1V INDICATIONS: left lat rib pain after fall TECHNIQUE: 2 views of the left ribs were acquired, along with a single view chest. COMPARISON: None. FINDINGS: Surgical changes and devices: None. Bones and chest wall: No fractures or dislocations. No suspicious bony les ions. Overlying soft tissues appear unremarkable. Quality of visualization is somewhat limited by body habitus, and mild patient motion during image acquisition. Lungs and pleura: No pleural effusions or pneumothorax. Lungs appear clear. Mediastinum: Mediastinal contours appear normal. Heart size is normal. IMPRESSION: No definite trauma found. As noted the study is somewhat limited and delayed plain films or nuclear medicine bone scanning may be warranted if unusual symptoms persist. Dictated by: Chucho Cuevas M.D. on 01/31/2021 at 12:29 Approved by: Chucho Cuevas M.D. on 01/31/2021 at 12:30 foot x-ray: Radiologist's Impression: [address] [id number] ReportSigned Patient: Michela Cao LMR#: [id number]: 5Acct:[id number]/Sex: 85 / FDate of Service: 01/31/21Loc: EDAccession Number: [id number] Procedure: XR foot LT min 3V Ordering Provider: Yimi Luna D.O. PROCEDURE: XR FOOT LT MIN 3V INDICATIONS: 2nd toe and mid foot pain after fall TECHNIQUE: 3 views of the foot were acquired. COMPARISON: None. FINDINGS: Bones: No fractures or dislocations. No suspicious bony lesions. Soft tissues: No tibiotalar joint effusion. Achilles tendon appears normal. IMPRESSION: No trauma found. Mild degenerative change at the interphalangeal joints, and also at the 1st MTP joint. Dictated by: Chucho Cuevas M.D. on 01/31/2021 at 12:30 Approved by: Chucho Cuevas M.D. on 01/31/2021 at 12:31 ECG Data Attestation: I personally reviewed and interpreted this ECG as follows: Prior ECG tracings: not available for review Interpretation: Sinus rhythm Ventricular rate 84 First degree AV block with a AR interval 2-4 milliseconds Normal axis Normal QRS Normal QTC No ST T wave changes MDM Narrative Medical decision making narrative: Her x-rays do not show any fractures. She has no abdominal tenderness. She is not in any respiratory distress. The lung on the x-ray also appears unremarkable. She is a clear lung exam. Labs and EKG are unremarkable. I feel no further workup needed in the emergency department. I did discuss with her the findings/lack of findings on her workup here in the emergency department. She was given return precautions. She expressed understanding and agreement. Discharge Plan Departure Patient Disposition: Home Clinical Impression: Left-sided chest wall pain, Fall, Contusion of toe of left foot Instructions: How to Prevent Falls Activity Restrictions/Additional Instructions: Your x-rays did not show any signs of fractures. Continue all of your medications as directed. Contact your primary provider for follow-up. Return to the emergency department for any new or worsening symptoms. Prescriptions: No Action levothyroxine 175 mcg tablet 175 mcg PO DAILY RF: 0 aspirin-dipyridamole 25-200 mg capsule, ER multiphase 12 hr 1 cap PO BID RF: 0 gabapentin 100 mg capsule 100 mg PO TID RF: 0 oxybutynin chloride 5 mg tablet 5 mg PO BID RF: 0 rosuvastatin 40 mg tablet 40 mg PO DAILY RF: 0 Referrals: Idalia Bashir MD [Primary Care Provider] -
--- NOTE | 2021-01-31 11:42 | PC.NURSE ---
Small abrasion to left forearm. Black and blue second toe and fifth toe, reports some pain on top of foot. Long toe nails noted bilaterally.
--- NOTE | 2021-01-31 11:48 | PC.NURSE ---
Dr Luna trimmed patients toe nails, tolerated well.
[2021-01-31 12:08] LABS: Add Manual Diff / Slide Review NO; Basophils Absolute Auto 0 /uL (0-100); Basophils Percent Auto 0.6 % (0-2); Eosinophils Absolute Auto 100 /uL (0-450); Eosinophils Percent Auto 2.5 % (2-4); Hematocrit 37.9 % (36-46); Hemoglobin 12.4 g/dL (12.0-16.0); Lymphocytes Absolute Auto 1600 /uL (1100-4500); Lymphocytes Percent Auto 31.3 % (25-40); Mean Corpuscular HGB Conc 32.7 % (30-36); Mean Corpuscular Hemoglobin 30.4 PG (26-34); Mean Corpuscular Volume 92.9 fL (80-100); Monocytes Absolute Auto 500 /uL (0-900); Monocytes Percent Auto 9.3 % (3-14); Neutrophils Absolute Auto 2800 /uL (1500-7000); Neutrophils Percent Auto 56.3 % (50-75); Platelet Count 234 X10^3/uL (150-400); Red Blood Cell Count 4.08 X10^6/uL (4.0-5.2); Red Cell Distribution Width 14.6 % (11.6-14.8)
[2021-01-31 12:15] LABS: BUN Creatinine Ratio 12.4 (6-22); Blood Urea Nitrogen 14 mg/dL (7-17); Calcium 9.7 mg/dL (8.4-10.2); Carbon Dioxide 29 mmol/L (22-32); Chloride 103 mmol/L (98-107); Estimated Glomerular Filt Rate 45.8 mL/min (>60); Glucose 111 mg/dL (80-110); HEMOLYSIS < 15 (0-50); Potassium 4.2 mmol/L (3.4-5.1); Sodium 140 mmol/L (137-145)
--- NOTE | 2021-01-31 12:23 | PC.NURSE ---
POA called and will be standing by for disposition and able to assist in anyway.
[2021-01-31 13:18] VITALS: BP 127/85; PULSE 89; RESP 15; TEMP 36.9; O2SAT 97
[2021-01-31] MEDS: ACETAMINOPHEN 325 MG TABLET 650 MG PO (13:32)
== END 2021-01-31 13:38 | disposition home or self-care (01) ==
PROVIDERS: Emergency Provider Emergency Medicine; PCP Internal Medicine
DX: R07.89 Other chest pain (principal); S90.122A Contusion of left lesser toe(s) without damage to nail, initial encounter; W06.XXXA Fall from bed, initial encounter
CPT/HCPCS: 36415; 71101; 73630; 80048; 85025; 93005; 99284

== ENCOUNTER → 2021-02-11 11:31 | Outpatient (CLI) | payer MEDICARE, SELFPAY ==
[2021-02-11 12:29] LABS: Hemoglobin A1C% w Est Avg Glu 5.8 % (4.0-6.0)
[2021-02-11 12:44] LABS: Alanine Aminotransferase 14 IU/L (<35); Albumin 4.4 g/dL (3.5-5.0); Albumin Globulin Ratio 1.3 (1.0-2.8); Alkaline Phosphatase 85 U/L (38-126); Aspartate Aminotransferase 29 IU/L (14-36); BUN Creatinine Ratio 16.3 (6-22); Bilirubin Total 0.5 mg/dL (0.2-1.3); Blood Urea Nitrogen 17 mg/dL (7-17); Calcium 9.8 mg/dL (8.4-10.2); Carbon Dioxide 26 mmol/L (22-32); Chloride 104 mmol/L (98-107); Cholesterol 264 mg/dL (140-199); Estimated Glomerular Filt Rate 50.4 mL/min (>60); Globulin 3.4 g/dL (1.7-4.1); Glucose 105 mg/dL (80-110); HDL Cholesterol 57 mg/dL (40-60); HEMOLYSIS < 15 (0-50); LDL Cholesterol Calculated 173 mg/dL (<100); Potassium 4.3 mmol/L (3.4-5.1); Sodium 139 mmol/L (137-145); Total Protein 7.8 g/dL (6.3-8.2); Triglycerides 171 mg/dL (35-150)
== END ==
PROVIDERS: PCP Internal Medicine; Referring Provider Internal Medicine; Visit Provider Internal Medicine
DX: E11.9 Type 2 diabetes mellitus without complications (principal); N18.30 Chronic kidney disease, stage 3 unspecified; E03.9 Hypothyroidism, unspecified
CPT/HCPCS: 36415; 80053; 80061; 83036; 84439; 84443

== ENCOUNTER 2021-06-09 08:49 | Emergency (ER) | payer MEDICARE, OTHER, SELFPAY ==
[2021-06-09] VITALS (13 sets, daily range): BP systolic 132–151; BP diastolic 63–78; PULSE 67–79; RESP 13–25; TEMP 36.9–37.1; O2SAT 93–99; BMI 42.5
--- NOTE | 2021-06-09 09:00 | DI.RAD.S_ITS ---
PROCEDURE: XR CHEST 1V INDICATIONS: SOB TECHNIQUE: One view of the chest was acquired. COMPARISON: [facility], CR, XR CHEST 2V, 08/28/2019, 15:24. FINDINGS: Surgical changes and devices: None. Lungs and pleura: Lungs are clear considering reduced inspiratory volume. No pleural effusions or pneumothorax. Mediastinum: Mediastinal contours appear normal. Heart size is normal. Bones and chest wall: No suspicious bony lesions. Overlying soft tissues appear unremarkable. IMPRESSION: Reduced inspiratory volume, no pneumonia found. Dictated by: Chucho Cuevas M.D. on 06/09/2021 at 9:47 Approved by: Chucho Cuevas M.D. on 06/09/2021 at 9:47
[2021-06-09 09:11] LABS: Add Manual Diff / Slide Review NO; Basophils Absolute Auto 0 /uL (0-100); Basophils Percent Auto 0.3 % (0-2); Eosinophils Absolute Auto 100 /uL (0-450); Eosinophils Percent Auto 0.8 % (2-4); Hematocrit 40.4 % (36-46); Hemoglobin 13.5 g/dL (12.0-16.0); Lymphocytes Absolute Auto 2600 /uL (1100-4500); Mean Corpuscular HGB Conc 33.3 % (30-36); Mean Corpuscular Hemoglobin 30.9 PG (26-34); Mean Corpuscular Volume 92.8 fL (80-100); Monocytes Absolute Auto 400 /uL (0-900); Monocytes Percent Auto 4.5 % (3-14); Neutrophils Absolute Auto 6400 /uL (1500-7000); Neutrophils Percent Auto 67.4 % (50-75); Platelet Count 207 X10^3/uL (150-400); Red Blood Cell Count 4.35 X10^6/uL (4.0-5.2); Red Cell Distribution Width 14.4 % (11.6-14.8); White Blood Cell Count 9.5 X10^3/uL (4.5-11.0)
[2021-06-09 09:25] LABS: Alanine Aminotransferase 16 IU/L (<35); Albumin 4.5 g/dL (3.5-5.0); Albumin Globulin Ratio 1.1 (1.0-2.8); Alkaline Phosphatase 83 U/L (38-126); Aspartate Aminotransferase 32 IU/L (14-36); BUN Creatinine Ratio 17.3 (6-22); Bilirubin Total 0.6 mg/dL (0.2-1.3); Blood Urea Nitrogen 14 mg/dL (7-17); Calcium 9.7 mg/dL (8.4-10.2); Carbon Dioxide 23 mmol/L (22-32); Chloride 105 mmol/L (98-107); Creatine Kinase 361 U/L (30-135); Estimated Glomerular Filt Rate > 60.0 mL/min (>60); Glucose 133 mg/dL (80-110); HEMOLYSIS < 15 (0-50); Lipase 45 U/L (23-300); Potassium 4.4 mmol/L (3.4-5.1); Sodium 139 mmol/L (137-145); Total Protein 8.5 g/dL (6.3-8.2)
--- NOTE | 2021-06-09 09:31 | ED.GENADULT ---
HPI - General Adult General Chief complaint: Shortness of Breath/Dyspnea Stated complaint: SOB Time Seen by Provider: 06/09/21 08:59 Source: patient and EMS Mode of arrival: EMS History of Present Illness HPI narrative: Patient is an 85-year-old female who is here for evaluation of swollen feet, shortness of breath and concerns for hypothermia. She states that her feet have been swelling for the past several days/weeks. She is not on any diuretics. Has never had this in the past. States that last evening she was taking her temperature and it was saying that it was low. This morning she took again it was lower than what it was last evening and so she was concerned about hypothermia. This is when she decided to call EMS to bring her in. She also states that this morning she had some shortness of breath. She has had a stroke in the past and has residual left-sided deficits. She does have which she states is some weakness in her left arm but this is not necessarily new. She denies any chest discomfort. She is taking all of her medications as directed Related Data Home Medications Medication Instructions Recorded Confirmed aspirin 25 mg-dipyridamole 200 mg 1 cap PO BID 05/24/19 05/24/19 capsule,ext.release 12 hr multiphase gabapentin 100 mg capsule 100 mg PO TID 05/24/19 05/24/19 levothyroxine 175 mcg tablet 175 mcg PO DAILY 05/24/19 05/24/19 oxybutynin chloride 5 mg tablet 5 mg PO BID 05/24/19 05/24/19 rosuvastatin 40 mg tablet 40 mg PO DAILY 05/24/19 05/24/19 Allergies Allergy/AdvReac Type Severity Reaction Status Date / Time No Known Drug Allergies Allergy Verified 01/31/21 11:35 Review of Systems Constitutional Comments: No fevers Eyes Comments: No vision changes ENT Comments: She does have sinus congestion and a dry throat Cardiovascular Comments: No chest discomfort Respiratory Respiratory: Reports as per HPI Gastrointestinal Comments: No abdominal pain, nausea vomiting Genitourinary Comments: No urinary symptoms Musculoskeletal Comments: No joint pain, does endorse lower extremity swelling Integumentary/Breasts Comments: No rashes Neurologic Neurologic: Reports system reviewed and no additional complaints, except as documented Psychiatric Psychiatric: Reports system reviewed and no additional complaints, except as documented Hematologic/Lymphatic On Anticoagulants: No Allergic/Immunologic Allergic/Immunologic: Reports system reviewed and no additional complaints, except as documented Patient History Medical History (Updated 06/09/21 @ 10:37 by Yimi Luna DO) CVA (cerebral vascular accident) Essential hypertension History of CVA (cerebrovascular accident) Surgical History History of bilateral breast reduction surgery History of cataract extraction with lens replacement History of cholecystectomy History of hysterectomy Social History household members: friend(s) Smoking Status: Never smoker alcohol intake: current Smoking Status: Never smoker alcohol intake frequency: holidays/special occasions only Substance Use Type: marijuana Exam Initial Vital Signs Initial Vital Signs: Vital Signs Pulse Rate 79 06/09/21 09:01 Pulse Oximetry 96 06/09/21 09:01 Const General: cooperative, comfortable and well developed HENMT Head: normal to inspection and normocephalic Nose: external nose normal Face and sinus: normal facial exam Eyes General: appearance normal, both eyes and all related structures Neck Neck: normal visual inspection Chest Chest: normal inspection of the chest, No crepitus and No tenderness Resp Effort & Inspection: normal respiratory effort Auscultation: clear to auscultation bilaterally Cardio Rate: regular rate Rhythm: regular rhythm GI Inspection: normal to inspection Back/Spine/Pelvis Back: normal to inspection Skin General: no rashes or lesions noted Neuro General: patient alert, patient awake and moves all extremities Extrem General: normal to inspection and capillary refill normal Psych Appearance: grossly normal and well kempt Scores GCS [place] coma scale eye opening: Spontaneous [place] coma scale verbal response: Orientated Rod[place]fo coma scale motor response: Obey commands Rodolfo coma scale total score: 15 Course Orders Ordered: ED Orders 06/09/21 09:00 XR chest 1V Stat EKG-12 Lead Stat 06/09/21 09:08 Complete Blood Count AUTO DIFF Stat Comprehensive Metabolic Panel Stat Lipase Stat NT-proBNP (BNP-Adult 18+) Stat Troponin & CK Cardiac Panel Stat 06/09/21 09:43 COVID19 -Nasal swab/Pre-Proc Stat 06/09/21 10:24 Partial Thromboplastin Time Stat Prothrombin Time INR Stat 06/09/21 11:18 CT head/brain wo con Stat 06/09/21 11:45 PTT [Partial Thromboplastin Time] Q6H 06/09/21 17:45 PTT [Partial Thromboplastin Time] Q6H 06/09/21 23:45 PTT [Partial Thromboplastin Time] Q6H 06/10/21 05:45 PTT [Partial Thromboplastin Time] Q6H Heparin Sodium/Dextrose (Heparin Drip) 25,000 unit in 500 mls @ 20 mls/hr IV CONT AUSTYN; Protocol Last Admin: 06/09/21 10:42 Dose: 1,000 units/hr, 20 mls/hr Documented by: GIDEON Discontinued Medications Aspirin (Aspirin 81 Mg Chew Tab) 324 mg PO NOW ONE Stop: 06/09/21 10:01 Last Admin: 06/09/21 10:08 Dose: 324 mg Documented by: GIDEON Heparin Sodium (Porcine) (Heparin 5,000 Unit/Ml Vial) 5,000 unit IV NOW ONE Stop: 06/09/21 10:25 Last Admin: 06/09/21 10:38 Dose: 5,000 unit Documented by: GIDEON Vital Signs Vital signs: Vital Signs - 8 hr 06/09/21 09:01 06/09/21 09:30 06/09/21 09:35 Temperature 98.5 F Pulse Rate 79 78 77 Respiratory Rate 22 18 Blood Pressure 151/70 H Pulse Oximetry 96 96 95 06/09/21 10:00 06/09/21 10:30 06/09/21 11:00 Temperature Pulse Rate 75 76 79 Respiratory Rate 18 25 H 17 Blood Pressure Pulse Oximetry 97 97 96 06/09/21 11:30 06/09/21 12:00 06/09/21 12:30 Temperature Pulse Rate 72 71 77 Respiratory Rate 14 17 Blood Pressure Pulse Oximetry 93 97 98 06/09/21 13:00 06/09/21 13:04 06/09/21 13:30 Temperature 98.8 F Pulse Rate 68 67 67 Respiratory Rate 13 22 18 Blood Pressure 132/78 132/78 140/63 Pulse Oximetry 99 99 99 06/09/21 14:00 Temperature Pulse Rate 76 Respiratory Rate 17 Blood Pressure 144/76 H Pulse Oximetry 98 Medical Decision Making Medical Records Medical records reviewed: Yes I reviewed the patient's medical records. Lab Data Lab results reviewed: Yes I reviewed the patient's lab results. Result diagrams: 06/09/21 09:08 06/09/21 09:08 Labs: Lab Results 06/09/21 06/09/21 06/09/21 Range/Units 09:08 09:08 09:43 WBC 9.5 (4.5-11.0) X10^3/uL RBC 4.35 (4.0-5.2) X10^6/uL Hgb 13.5 (12.0-16.0) g/dL Hct 40.4 (36-46) % MCV 92.8 (80-100) fL MCH 30.9 (26-34) PG MCHC 33.3 (30-36) % RDW 14.4 (11.6-14.8) % Plt Count 207 (150-400) X10^3/uL Neut % (Auto) 67.4 (50-75) % Lymph % (Auto) 27.0 (25-40) % [place] % (Auto) 4.5 (3-14) % Eos % (Auto) 0.8 L (2-4) % Baso % (Auto) 0.3 (0-2) % Neut # (Auto) 6400 (5620-7807) /uL Lymph # (Auto) 2600 (4793-4240) /uL [place] # (Auto) 400 (0-900) /uL Eos # (Auto) 100 (0-450) /uL Baso # (Auto) 0 (0-100) /uL PT (10.1-12.7) SECONDS INR (0.9-1.3) APTT (26.4-36.2) SECONDS Sodium 139 (137-145) mmol/L Potassium 4.4 (3.4-5.1) mmol/L Chloride 105 (98-107) mmol/L Carbon Dioxide 23 (22-32) mmol/L BUN 14 (7-17) mg/dL Creatinine 0.81 (0.52-1.04) mg/dL Estimated GFR > 60.0 (>60) mL/min BUN/Creatinine Ratio 17.3 (6-22) Glucose 133 H (80-110) mg/dL Calcium 9.7 (8.4-10.2) mg/dL Total Bilirubin 0.6 (0.2-1.3) mg/dL AST 32 (14-36) IU/L ALT 16 (<35) IU/L Alkaline Phosphatase 83 (38-126) U/L Total Creatine Kinase 361 H (30-135) U/L CK-MB (CK-2) 5.19 H (<2.37) ng/mL CK-MB (CK-2) Rel Index 1.4 L (1.5-5.0) % Troponin I 0.173 H* (0.01-0.034) ng/mL NT-Pro-B Natriuret Pep 256 (<450) pg/mL Total Protein 8.5 H (6.3-8.2) g/dL Albumin 4.5 (3.5-5.0) g/dL Globulin 4.0 (1.7-4.1) g/dL Albumin/Globulin Ratio 1.1 (1.0-2.8) Lipase 45 (23-300) U/L SARS-CoV-2 (PCR) Negative (Negative) 06/09/21 Range/Units 10:24 WBC (4.5-11.0) X10^3/uL RBC (4.0-5.2) X10^6/uL Hgb (12.0-16.0) g/dL Hct (36-46) % MCV (80-100) fL MCH (26-34) PG MCHC (30-36) % RDW (11.6-14.8) % Plt Count (150-400) X10^3/uL Neut % (Auto) (50-75) % Lymph % (Auto) (25-40) % [place] % (Auto) (3-14) % Eos % (Auto) (2-4) % Baso % (Auto) (0-2) % Neut # (Auto) (0020-0292) /uL Lymph # (Auto) (9940-1342) /uL [place] # (Auto) (0-900) /uL Eos # (Auto) (0-450) /uL Baso # (Auto) (0-100) /uL PT 10.9 (10.1-12.7) SECONDS INR 1.0 (0.9-1.3) APTT 33 (26.4-36.2) SECONDS Sodium (137-145) mmol/L Potassium (3.4-5.1) mmol/L Chloride (98-107) mmol/L Carbon Dioxide (22-32) mmol/L BUN (7-17) mg/dL Creatinine (0.52-1.04) mg/dL Estimated GFR (>60) mL/min BUN/Creatinine Ratio (6-22) Glucose (80-110) mg/dL Calcium (8.4-10.2) mg/dL Total Bilirubin (0.2-1.3) mg/dL AST (14-36) IU/L ALT (<35) IU/L Alkaline Phosphatase (38-126) U/L Total Creatine Kinase (30-135) U/L CK-MB (CK-2) (<2.37) ng/mL CK-MB (CK-2) Rel Index (1.5-5.0) % Troponin I (0.01-0.034) ng/mL NT-Pro-B Natriuret Pep (<450) pg/mL Total Protein (6.3-8.2) g/dL Albumin (3.5-5.0) g/dL Globulin (1.7-4.1) g/dL Albumin/Globulin Ratio (1.0-2.8) Lipase (23-300) U/L SARS-CoV-2 (PCR) (Negative) Imaging Data Chest x-ray: Radiologist's Impression: [address] [id number] ReportSigned Patient: Michela Cao LMR#: [id number]: 5Acct:[id number]/Sex: 85 / FDate of Service: 06/09/21Loc: EDAccession Number: [id number] Procedure: XR chest 1V Ordering Provider: Yimi Luna D.O. PROCEDURE: XR CHEST 1V INDICATIONS: SOB TECHNIQUE: One view of the chest was acquired. COMPARISON: [facility], , XR CHEST 2V, 08/28/2019, 15:24. FINDINGS: Surgical changes and devices: None. Lungs and pleura: Lungs are clear considering reduced inspiratory volume. No pleural effusions or pneumothorax. Mediastinum: Mediastinal contours appear normal. Heart size is normal. Bones and chest wall: No suspicious bony lesions. Overlying soft tissues appear unremarkable. IMPRESSION: Reduced inspiratory volume, no pneumonia found. Dictated by: Chucho Cuevas M.D. on 06/09/2021 at 9:47 Approved by: Chucho Cuevas M.D. on 06/09/2021 at 9:47 CT scan - head: Radiologist's Impression: [address] [id number] Scan ReportSigned Patient: Michela Cao LMR#: [id number]: 5Acct:[id number]/Sex: 85 / FDate of Service: 06/09/21Loc: EDAccession Number: [id number] Procedure: CT head/brain wo con Ordering Provider: Yimi Luna D.O. PROCEDURE: CT HEAD/BRAIN WO CON INDICATIONS: leftL sided weakness TECHNIQUE: Noncontrast 4.5 mm thick angled axial sections acquired from the foramen magnum to the vertex, with coronal and sagittal reformats. For radiation dose reduction, the following was used: automated exposure control, adjustment of mA and/or kV according to patient size. COMPARISON: [facility], CT, CT HEAD/BRAIN WO CON, 05/23/2019, 20:23. FINDINGS: Image quality: Excellent. CSF spaces: Basal cisterns are patent. No extra-axial fluid collections. The ventricles are asymmetric in size and shape, enlarged on the right, associated with relatively extensive encephalomalacia involving the right hemisphere as has been previously the case.. Brain: No intracranial bleeds or masses. There is cerebral volume loss for age, with resultant ventricular and sulcal prominence. There are periventricular and deep white matter chronic small vessel ischemic changes. There is intracranial internal carotid artery atherosclerosis. Skull and face: Calvarium and visualized facial bones appear intact, without suspicious lesions. Sinuses: Visualized sinuses and mastoids are clear. 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 Dictated by: Chucho Cuevas M.D. on 06/09/2021 at 11:36 Approved by: Chucho Cuevas M.D. on 06/09/2021 at 11:37 ECG Data Attestation: I personally reviewed and interpreted this ECG as follows: Interpretation: Sinus rhythm Ventricular rate is 70 to Normal axis First degree AV block OH interval 216 milliseconds Normal QRS Normal QTC No ST T wave changes MDM Narrative Medical decision making narrative: Head CT is unremarkable. EKG is unremarkable. Does have an elevated troponin. Given the left-sided chest discomfort, the shortness of breath last evening and the increase in ?heaviness ?to her left arm I am concerned about ACS. She was given an aspirin. Started on heparin. Chest x-ray is unremarkable. Discussed the case with hospitalist at [facility] who accepts the patient in transfer. I discussed this with the patient as well. She expressed understanding and agreement. Critical Care Time Critical Care Time Critical Care Time: Yes Total Critical Care Time: 35 Attestation: The high probability of a clinically significant, sudden or life threatening deterioration of the cardiovascular system(s) required my full and direct attention, intervention and personal management. The aggregate critical care time was35 minutes. This time is in addition to time spent performing reported procedures but includes the following: [x] Data Review and interpretation [x] Patient assessment and monitoring of vital signs [x] Documentation x Medication orders and management Discharge Plan Departure Patient Disposition: [facility] Clinical Impression: Non-ST elevated myocardial infarction Prescriptions: No Action levothyroxine 175 mcg tablet 175 mcg PO DAILY RF: 0 aspirin-dipyridamole 25-200 mg capsule, ER multiphase 12 hr 1 cap PO BID RF: 0 gabapentin 100 mg capsule 100 mg PO TID RF: 0 oxybutynin chloride 5 mg tablet 5 mg PO BID RF: 0 rosuvastatin 40 mg tablet 40 mg PO DAILY RF: 0 Referrals: Idalia Bashir MD [Primary Care Provider] -
[2021-06-09 09:34] LABS: NT-proBNP (BNP-Adult 18+) 256 pg/mL (<450)
[2021-06-09 09:47] LABS: CKMB % Relative Index 1.4 % (1.5-5.0); Creatine Kinase MB 5.19 ng/mL (<2.37)
[2021-06-09 09:58] LABS: COVID19 -Nasal RAPID Negative (Negative)
[2021-06-09 10:00] LABS: Troponin I 0.173 ng/mL (0.01-0.034)
[2021-06-09] MEDS: ASPIRIN 81 MG CHEW TAB 324 MG PO (10:08)
[2021-06-09 10:37] LABS: PTT Partial Thromboplastin Tim 33 SECONDS (26.4-36.2); Prothrombin Time 10.9 SECONDS (10.1-12.7)
[2021-06-09] MEDS: HEPARIN 5,000 UNIT/ML VIAL 5000 UNIT IV (10:38)
[2021-06-09] MEDS: HEPARIN DRIP 25,000 UNIT/500 ML IV.SOLN 20 UNIT IV (10:42)
--- NOTE | 2021-06-09 11:18 | DI.CT.S_ITS ---
PROCEDURE: CT HEAD/BRAIN WO CON INDICATIONS: leftL sided weakness TECHNIQUE: Noncontrast 4.5 mm thick angled axial sections acquired from the foramen magnum to the vertex, with coronal and sagittal reformats. For radiation dose reduction, the following was used: automated exposure control, adjustment of mA and/or kV according to patient size. COMPARISON: [facility], CT, CT HEAD/BRAIN WO CON, 05/23/2019, 20:23. FINDINGS: Image quality: Excellent. CSF spaces: Basal cisterns are patent. No extra-axial fluid collections. The ventricles are asymmetric in size and shape, enlarged on the right, associated with relatively extensive encephalomalacia involving the right hemisphere as has been previously the case.. Brain: No intracranial bleeds or masses. There is cerebral volume loss for age, with resultant ventricular and sulcal prominence. There are periventricular and deep white matter chronic small vessel ischemic changes. There is intracranial internal carotid artery atherosclerosis. Skull and face: Calvarium and visualized facial bones appear intact, without suspicious lesions. Sinuses: Visualized sinuses and mastoids are clear. 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 Dictated by: Chucho Cuevas M.D. on 06/09/2021 at 11:36 Approved by: Chucho Cuevas M.D. on 06/09/2021 at 11:37
--- NOTE | 2021-06-09 14:24 | PC.NURSE ---
Report called to Agnes RN's at [facility] in [place].
== END 2021-06-09 14:53 | disposition short-term general hospital (02) ==
PROVIDERS: Emergency Provider Emergency Medicine; PCP Internal Medicine
DX: I21.4 Non-ST elevation (NSTEMI) myocardial infarction (principal); I69.354 Hemiplegia and hemiparesis following cerebral infarction affecting left non-dominant side; Z20.822 Contact with and (suspected) exposure to COVID-19
CPT/HCPCS: 36415; 70450; 71045; 80053; 82550; 82553; 83690; 83880; 84484; 85025; 85610; 85730; 87635; 93005; 93010; 96365; 96366; 96375; 99284; 99291; C9803; J1644

== ENCOUNTER → 2021-12-22 16:19 | Outpatient (CLI) | payer MEDICARE, OTHER, SELFPAY ==
[2021-12-22 18:20] LABS: BUN Creatinine Ratio 19.8 (6-22); Blood Urea Nitrogen 21 mg/dL (7-17); Calcium 9.9 mg/dL (8.4-10.2); Carbon Dioxide 29 mmol/L (22-32); Chloride 107 mmol/L (98-107); Estimated Glomerular Filt Rate 49.2 mL/min (>60); Glucose 105 mg/dL (80-110); HEMOLYSIS < 15 (0-50); Potassium 5.1 mmol/L (3.4-5.1); Sodium 141 mmol/L (137-145)
== END ==
PROVIDERS: PCP Internal Medicine; Referring Provider Nurse Practitioner; Visit Provider Nurse Practitioner
DX: I35.0 Nonrheumatic aortic (valve) stenosis (principal)
CPT/HCPCS: 36415; 80048

== ENCOUNTER → 2022-01-16 14:42 | Outpatient (CLI) | payer MEDICARE, OTHER, SELFPAY ==
[2022-01-16 16:33] LABS: BUN Creatinine Ratio 21.3 (6-22); Blood Urea Nitrogen 29 mg/dL (7-17); Calcium 9.9 mg/dL (8.4-10.2); Carbon Dioxide 28 mmol/L (22-32); Chloride 105 mmol/L (98-107); Estimated Glomerular Filt Rate 36.9 mL/min (>60); Glucose 118 mg/dL (80-110); HEMOLYSIS < 15 (0-50); Potassium 4.6 mmol/L (3.4-5.1); Sodium 139 mmol/L (137-145)
== END ==
PROVIDERS: PCP Internal Medicine; Referring Provider Nurse Practitioner; Visit Provider Nurse Practitioner
DX: I50.31 Acute diastolic (congestive) heart failure (principal)
CPT/HCPCS: 36415; 80048

== ENCOUNTER → 2022-05-08 14:46 | Outpatient (CLI) | payer MEDICARE, OTHER, SELFPAY | PROVIDERS: PCP Internal Medicine; Referring Provider Internal Medicine; Visit Provider Internal Medicine | DX: Z78.0 Asymptomatic menopausal state (principal); M81.0 Age-related osteoporosis without current pathological fracture; M85.89 Other specified disorders of bone density and structure, multiple sites | CPT/HCPCS: 77080 ==

== ENCOUNTER → 2022-06-10 15:06 | Outpatient (CLI) | payer MEDICARE, OTHER, SELFPAY ==
[2022-06-10 16:36] LABS: Blood Urea Nitrogen 29 mg/dL (7-17); Calcium 9.4 mg/dL (8.4-10.2); Carbon Dioxide 30 mmol/L (22-32); Chloride 101 mmol/L (98-107); Estimated Glomerular Filt Rate 46 mL/min (>60); Glucose 87 mg/dL (80-110); HEMOLYSIS < 15 (0-50); Potassium 4.5 mmol/L (3.4-5.1); Sodium 138 mmol/L (137-145)
== END ==
PROVIDERS: PCP Internal Medicine; Referring Provider Internal Medicine Cardiovascular Disease; Visit Provider Internal Medicine Cardiovascular Disease
DX: I50.32 Chronic diastolic (congestive) heart failure (principal)
CPT/HCPCS: 36415; 80048

== ENCOUNTER 2022-12-19 11:19 | Inpatient (IN) | payer MEDICARE, OTHER, SELFPAY ==
[2022-12-19] VITALS (18 sets, daily range): BP systolic 101–154; BP diastolic 50–118; PULSE 82–94; RESP 13–29; TEMP 35.7–36.7; O2SAT 92–97; BMI 35.7
--- NOTE | 2022-12-19 | DI.US.S_ITS ---
PROCEDURE: US CAROTID DOPPLER BI INDICATIONS: GLF,HISTORY OF CEREBROVASCULAR ACCIDENT, RT50-69% STENOSIS TECHNIQUE: Color and pulse Doppler interrogation was performed of both carotid systems, with image documentation and velocity measurements. COMPARISON: [facility], , US CAROTID DOPPLER BI, 06/28/2019, 11:28. FINDINGS: Stenosis calculations are based on SRU (Society of Radiologists in Ultrasound) criteria. Right side: Brachial blood pressure: 116/52 mm Hg. Common carotid artery peak systolic velocity: 70.8 cm/sec. Internal carotid artery peak systolic velocity: 107.6 cm/sec. Internal carotid artery end diastolic velocity: 121 cm/sec. External carotid artery peak systolic velocity: 72.2 cm/sec. ICA/CCA peak systolic ratio: 1.71. Phelps scale imaging description: [id number]-[id number] amount of atherosclerotic plaques are noted involving distal right common carotid artery and origin of right internal carotid artery. Percent internal carotid artery stenosis: Less than 50% stenosis. Vertebral artery: Not visualized Left side: Brachial blood pressure: 125/66 mm Hg. Common carotid artery peak systolic velocity: 92.5 cm/sec. Internal carotid artery peak systolic velocity: 79.7 cm/sec. Internal carotid artery end diastolic velocity: 81.8 cm/sec. External carotid artery peak systolic velocity: 66.2 cm/sec. ICA/CCA peak systolic ratio: 0.88. Phelps scale imaging description: Fhow-lw-qktodaqm amount of atherosclerotic plaques are noted in distal left common carotid artery and origin of left internal carotid artery. Percent internal carotid artery stenosis: Less than 50%. Vertebral artery: Not visualized. IMPRESSION: 1. Finding is consistent with less than 50% stenosis in bilateral proximal internal carotid arteries. 2. Bilateral vertebral arteries are not, occlusion of vertebral arteries cannot be excluded. Dictated by: Momo Chawla M.D. on 12/21/2022 at 8:12 Approved by: Momo Chawla M.D. on 12/21/2022 at 8:22
--- NOTE | 2022-12-19 11:46 | DI.RAD.S_ITS ---
PROCEDURE: XR HIP W PEL IF DONE LT 2V INDICATIONS: ground level fall. TECHNIQUE: 2 views of the hip were acquired. COMPARISON: None. FINDINGS: Bones: No fractures or dislocations. No suspicious bony lesions. The visualized pelvic ring appears intact. Soft tissues: No suspicious soft tissue calcifications or masses. IMPRESSION: No radiographic evidence of fracture Approved by: Dereje Crowell M.D. on 12/19/2022 at 12:05
--- NOTE | 2022-12-19 11:46 | DI.RAD.S_ITS ---
PROCEDURE: XR CHEST 1V INDICATIONS: chest pain TECHNIQUE: One view of the chest was acquired. COMPARISON: [facility], CR, XR CHEST 1V, 06/09/2021, 9:01. FINDINGS: Heart size is enlarged. Moderate vascular congestion noted. Low lung volumes accentuate pulmonary interstitium heart size. Atherosclerotic vascular calcification noted in the aortic arch. No pneumothorax is present. Generalized decrease in osseous mineralization noted. IMPRESSION: Cardiomegaly and moderate vascular congestion. Osteopenia. Approved by: Dereje Crowell M.D. on 12/19/2022 at 12:02
[2022-12-19 11:56] LABS: Add Manual Diff / Slide Review NO; Basophils Absolute Auto 100 /uL (0-100); Basophils Percent Auto 0.4 % (0-2); Eosinophils Absolute Auto 0 /uL (0-450); Hematocrit 49.7 % (36-46); Hemoglobin 16.3 g/dL (12.0-16.0); Lymphocytes Absolute Auto 1000 /uL (1100-4500); Lymphocytes Percent Auto 6.9 % (25-40); Mean Corpuscular HGB Conc 32.7 % (30-36); Mean Corpuscular Hemoglobin 29.1 PG (26-34); Monocytes Absolute Auto 800 /uL (0-900); Monocytes Percent Auto 5.6 % (3-14); Neutrophils Absolute Auto 13100 /uL (1500-7000); Neutrophils Percent Auto 87.1 % (50-75); Platelet Count 271 X10^3/uL (150-400); Red Blood Cell Count 5.59 X10^6/uL (4.0-5.2); Red Cell Distribution Width 14.7 % (11.6-14.8); White Blood Cell Count 15.1 X10^3/uL (4.5-11.0)
--- NOTE | 2022-12-19 11:56 | ED_ITS ---
HPI - Fall General Chief Complaint: Fall Stated Complaint: GLF, down 4 hrs Time Seen by Provider: 12/19/22 11:54 Source: EMS Mode of arrival: EMS Limitations: no limitations History of Present Illness HPI Narrative: This is an 87-year-old female with history of prior NSTEMI, prior stroke with left-sided deficit, chronic sciatica, hypothyroidism and dyslipidemia. Patient presents today after a ground level fall. Patient states she was going out her door into her garage there is 2 doors she got tripped up and fell onto the concrete floor in her garage. She is unsure exactly how long she was on the floor but suspected to be a couple hours. She did try to crawl to a chair and get herself into the chair but was unsuccessful. She states she has some increased low back pain. She does have history of chronic right-sided sciatica. States similar area but little bit worse than normal. She does think she may have hit her head although she states lately. Patient denies any neck pain. No chest pain or shortness of breath. She denies any nausea or vomiting. No dizziness. No loss of consciousness. She denies any new bladder or bowel incontinence but states she has some baseline urinary incontinence. She states her main issue is that she has difficulty getting her underwear down secondary to her prior stroke and getting to the bathroom in time. She does have the sensation that she needs to go to the bathroom it is more of a time situation. Patient denies any new numbness, tingling or weakness to her extremities. She states no known drug allergies. No tobacco, no alcohol, she does use marijuana edibles for pain and help sleep at night. She states she normally takes edibles and Tylenol for chronic back pain. Related Data Home Medications Medication Instructions Recorded Confirmed aspirin 25 mg-dipyridamole 200 mg 1 cap PO BID 05/24/19 05/24/19 capsule,ext.release 12 hr multiphase gabapentin 100 mg capsule 100 mg PO TID 05/24/19 05/24/19 levothyroxine 175 mcg tablet 175 mcg PO DAILY 05/24/19 05/24/19 oxybutynin chloride 5 mg tablet 5 mg PO BID 05/24/19 05/24/19 rosuvastatin 40 mg tablet 40 mg PO DAILY 05/24/19 05/24/19 Allergies Allergy/AdvReac Type Severity Reaction Status Date / Time No Known Drug Allergies Allergy Verified 01/31/21 11:35 Review of Systems Review of Systems ROS Unobtainable: All systems reviewed & are unremarkable except as noted in HPI and below Patient History Medical History (Updated 12/19/22 @ 18:54 by Sonali Hollis DO) CVA (cerebral vascular accident) Essential hypertension History of CVA (cerebrovascular accident) Surgical History History of bilateral breast reduction surgery History of cataract extraction with lens replacement History of cholecystectomy History of hysterectomy Social History household members: friend(s) Smoking Status: Never smoker alcohol intake: current Smoking Status: Never smoker alcohol intake frequency: holidays/special occasions only Substance Use Type: marijuana Exam Narrative Exam Narrative: GEN: Patient appears in mild distress. HEAD: No evidence of trauma, no raccoon/Hubbard sign. NECK: Nontender, painless range of motion, trachea midline Negative Nexus criteria, there is no midline line tenderness, distracting injury, altered mental status, neuro deficit, recent EtOH. EYES: PERRLA, EOMI ENT: External inspection normal, trachea is midline, TM's are normal no hemotypanum, Nares are clear, no septal hematoma, no dental or oral injury, airway is normal and with normal occlusion, No bony tenderness RESP: Chest is nontender and has symmetric movement, no ecchymosis, breath sounds are normal no crackles, wheezes or rales CVS: Heart sounds are normal, no murmur noted, No JVD. ABG/GI: Nontender, soft, normal bowel sounds, no distention, no organomegaly, pelvic rock is negative NEURO: Oriented AOx3, neuro is grossly intact, sensation and motor is normal all 4 extremities moving, cranial nerves II through XII are intact, GCS is 15 PSYCH: Normal mood and affect SKIN: Intact, warm and dry, no crepitus and without decubitus BACK: No CVA tenderness, no vertebral tenderness accept at L4-L5, no step-off's, no crepitus. EXT: Atraumatic, hips are nontender, no pedal edema, normal color and temperature, patient has decreased use of the left hand, she does have some movement of the left upper extremity she states is her normal baseline. Normal range of motion of the right upper extremity. Patient does have global weakness in her lower extremities. She has sensation to light touch. No saddle anesthesia. Initial Vital Signs Initial Vital Signs: Vital Signs Temperature 96.2 F L 12/19/22 11:22 Course Orders Ordered: ED Orders 12/19/22 11:25 BNP [NT-proBNP (BNP-Adult 18+)] Stat Complete Blood Count AUTO DIFF Stat Comprehensive Metabolic Panel Stat ETOH [Ethanol (ETOH)] Stat Lipase Stat Magnesium Stat Partial Thromboplastin Time Stat Prothrombin Time INR Stat Troponin & CK Cardiac Panel Stat 12/19/22 11:46 XR chest 1V Stat XR hip w pel if done LT 2V Stat 12/19/22 12:43 COVID19 -Nasal RAPID/Pre-Proc Stat 12/19/22 14:05 Trop I [Troponin I] Stat 12/19/22 14:10 CT lumbar spine wo con Stat 12/19/22 14:11 CT head/brain wo con Stat 12/19/22 15:25 Urine Microscopic Stat Sodium Chloride (Normal Saline 0.9%) 1,000 mls @ 150 mls/hr IV CONT AUSTYN Last Admin: 12/19/22 14:59 Dose: 150 mls/hr Documented By: LEORA Discontinued Medications Hydrocodone Bitart/Acetaminophen (Hydrocodone/Acet 5/325 Tablet) 2 tab PO NOW ONE Stop: 12/19/22 14:11 Last Admin: 12/19/22 14:59 Dose: 2 tab Documented By: LEORA Ondansetron HCl (Ondansetron 4 Mg/2 Ml Inj) 4 mg IV NOW ONE Stop: 12/19/22 14:11 Last Admin: 12/19/22 14:58 Dose: 4 mg Documented By: LEORA Vital Signs Vital signs: Vital Signs - 8 hr 12/19/22 11:22 12/19/22 11:36 12/19/22 11:49 Temperature 96.2 F L 96.2 F L Pulse Rate 94 H Respiratory Rate 16 Blood Pressure 141/63 H Pulse Oximetry 97 Oxygen Delivery Method Room Air 12/19/22 12:51 12/19/22 12:51 12/19/22 13:00 Temperature Pulse Rate 91 H Respiratory Rate 29 H Blood Pressure 123/85 126/78 Pulse Oximetry 93 Oxygen Delivery Method 12/19/22 13:00 12/19/22 13:30 12/19/22 13:30 Temperature Pulse Rate 90 89 Respiratory Rate 24 18 Blood Pressure 132/73 Pulse Oximetry 94 94 Oxygen Delivery Method 12/19/22 14:00 12/19/22 14:01 12/19/22 14:01 Temperature Pulse Rate 87 87 Respiratory Rate 21 21 Blood Pressure 151/58 H Pulse Oximetry 94 95 Oxygen Delivery Method 12/19/22 14:30 12/19/22 14:30 12/19/22 15:23 Temperature Pulse Rate 88 Respiratory Rate 24 Blood Pressure 154/118 H 126/60 Pulse Oximetry 94 Oxygen Delivery Method 12/19/22 15:30 12/19/22 15:30 12/19/22 16:00 Temperature Pulse Rate 94 H Respiratory Rate 23 Blood Pressure 133/60 112/56 L Pulse Oximetry 95 Oxygen Delivery Method 12/19/22 16:00 12/19/22 16:30 12/19/22 16:30 Temperature Pulse Rate 88 84 Respiratory Rate 18 14 Blood Pressure 101/58 L Pulse Oximetry 94 94 Oxygen Delivery Method Room Air MDM - Fall Lab Data 12/19/22 11:25 12/19/22 11:25 Labs: Lab Results 12/19/22 12/19/22 12/19/22 Range/Units 11:25 11:25 11:25 WBC 15.1 H (4.5-11.0) X10^3/uL RBC 5.59 H (4.0-5.2) X10^6/uL Hgb 16.3 H (12.0-16.0) g/dL Hct 49.7 H (36-46) % MCV 89.0 (80-100) fL MCH 29.1 (26-34) PG MCHC 32.7 (30-36) % RDW 14.7 (11.6-14.8) % Plt Count 271 (150-400) X10^3/uL Neut % (Auto) 87.1 H (50-75) % Lymph % (Auto) 6.9 L (25-40) % [place] % (Auto) 5.6 (3-14) % Eos % (Auto) 0.0 L (2-4) % Baso % (Auto) 0.4 (0-2) % Neut # (Auto) 30625 H (2139-4942) /uL Lymph # (Auto) 1000 L (7064-5660) /uL [place] # (Auto) 800 (0-900) /uL Eos # (Auto) 0 (0-450) /uL Baso # (Auto) 100 (0-100) /uL PT 11.6 (10.1-12.7) SECONDS INR 1.0 (0.9-1.3) APTT 32 (26-36) SECONDS Sodium 136 L (137-145) mmol/L Potassium 4.2 (3.4-5.1) mmol/L Chloride 97 L (98-107) mmol/L Carbon Dioxide 24 (22-32) mmol/L BUN 25 H (7-17) mg/dL Creatinine 1.09 H (0.52-1.04) mg/dL Estimated GFR 49 L (>60) mL/min BUN/Creatinine Ratio 22.9 H (6-22) Glucose 145 H (80-110) mg/dL Calcium 9.7 (8.4-10.2) mg/dL Magnesium 1.9 (1.6-2.3) mg/dL Total Bilirubin 1.0 (0.2-1.3) mg/dL AST 82 H (14-36) IU/L ALT 44 H (<35) IU/L Alkaline Phosphatase 108 (38-126) U/L Total Creatine Kinase 2881 H (30-135) U/L CK-MB (CK-2) 16.00 H (<2.37) ng/mL CK-MB (CK-2) Rel Index 0.6 L (1.5-5.0) % Troponin I 0.439 H* (0.01-0.034) ng/mL NT-Pro-B Natriuret Pep (<450) pg/mL Total Protein 9.5 H (6.3-8.2) g/dL Albumin 4.8 (3.5-5.0) g/dL Globulin 4.7 H (1.7-4.1) g/dL Albumin/Globulin Ratio 1.0 (1.0-2.8) Lipase 62 (23-300) U/L Urine RBC (0-5/HPF) Urine WBC (0-5/HPF) Ur Squamous Epith Cells (0-5/HPF) Urine Bacteria (None) Hyaline Casts (None) Granular Casts (None) Ur Culture Indicated? Ethyl Alcohol ( - 10) mg/dL SARS-CoV-2 (PCR) (Negative) 12/19/22 12/19/22 12/19/22 Range/Units 11:25 12:43 14:05 WBC (4.5-11.0) X10^3/uL RBC (4.0-5.2) X10^6/uL Hgb (12.0-16.0) g/dL Hct (36-46) % MCV (80-100) fL MCH (26-34) PG MCHC (30-36) % RDW (11.6-14.8) % Plt Count (150-400) X10^3/uL Neut % (Auto) (50-75) % Lymph % (Auto) (25-40) % [place] % (Auto) (3-14) % Eos % (Auto) (2-4) % Baso % (Auto) (0-2) % Neut # (Auto) (4256-9432) /uL Lymph # (Auto) (3195-3629) /uL [place] # (Auto) (0-900) /uL Eos # (Auto) (0-450) /uL Baso # (Auto) (0-100) /uL PT (10.1-12.7) SECONDS INR (0.9-1.3) APTT (26-36) SECONDS Sodium (137-145) mmol/L Potassium (3.4-5.1) mmol/L Chloride (98-107) mmol/L Carbon Dioxide (22-32) mmol/L BUN (7-17) mg/dL Creatinine (0.52-1.04) mg/dL Estimated GFR (>60) mL/min BUN/Creatinine Ratio (6-22) Glucose (80-110) mg/dL Calcium (8.4-10.2) mg/dL Magnesium (1.6-2.3) mg/dL Total Bilirubin (0.2-1.3) mg/dL AST (14-36) IU/L ALT (<35) IU/L Alkaline Phosphatase (38-126) U/L Total Creatine Kinase (30-135) U/L CK-MB (CK-2) (<2.37) ng/mL CK-MB (CK-2) Rel Index (1.5-5.0) % Troponin I 0.435 H* (0.01-0.034) ng/mL NT-Pro-B Natriuret Pep 4250 H (<450) pg/mL Total Protein (6.3-8.2) g/dL Albumin (3.5-5.0) g/dL Globulin (1.7-4.1) g/dL Albumin/Globulin Ratio (1.0-2.8) Lipase (23-300) U/L Urine RBC (0-5/HPF) Urine WBC (0-5/HPF) Ur Squamous Epith Cells (0-5/HPF) Urine Bacteria (None) Hyaline Casts (None) Granular Casts (None) Ur Culture Indicated? Ethyl Alcohol < 10 ( - 10) mg/dL SARS-CoV-2 (PCR) Negative (Negative) 12/19/22 Range/Units 15:25 WBC (4.5-11.0) X10^3/uL RBC (4.0-5.2) X10^6/uL Hgb (12.0-16.0) g/dL Hct (36-46) % MCV (80-100) fL MCH (26-34) PG MCHC (30-36) % RDW (11.6-14.8) % Plt Count (150-400) X10^3/uL Neut % (Auto) (50-75) % Lymph % (Auto) (25-40) % [place] % (Auto) (3-14) % Eos % (Auto) (2-4) % Baso % (Auto) (0-2) % Neut # (Auto) (2039-5956) /uL Lymph # (Auto) (5655-2461) /uL [place] # (Auto) (0-900) /uL Eos # (Auto) (0-450) /uL Baso # (Auto) (0-100) /uL PT (10.1-12.7) SECONDS INR (0.9-1.3) APTT (26-36) SECONDS Sodium (137-145) mmol/L Potassium (3.4-5.1) mmol/L Chloride (98-107) mmol/L Carbon Dioxide (22-32) mmol/L BUN (7-17) mg/dL Creatinine (0.52-1.04) mg/dL Estimated GFR (>60) mL/min BUN/Creatinine Ratio (6-22) Glucose (80-110) mg/dL Calcium (8.4-10.2) mg/dL Magnesium (1.6-2.3) mg/dL Total Bilirubin (0.2-1.3) mg/dL AST (14-36) IU/L ALT (<35) IU/L Alkaline Phosphatase (38-126) U/L Total Creatine Kinase (30-135) U/L CK-MB (CK-2) (<2.37) ng/mL CK-MB (CK-2) Rel Index (1.5-5.0) % Troponin I (0.01-0.034) ng/mL NT-Pro-B Natriuret Pep (<450) pg/mL Total Protein (6.3-8.2) g/dL Albumin (3.5-5.0) g/dL Globulin (1.7-4.1) g/dL Albumin/Globulin Ratio (1.0-2.8) Lipase (23-300) U/L Urine RBC 5-10/hpf H (0-5/HPF) Urine WBC 1-5/hpf (0-5/HPF) Ur Squamous Epith Cells 1-5 /hpf (0-5/HPF) Urine Bacteria Moderate (10-30) H (None) Hyaline Casts 5-10/lpf (None) Granular Casts 5-10/lpf (None) Ur Culture Indicated? Cult not indicated Ethyl Alcohol ( - 10) mg/dL SARS-CoV-2 (PCR) (Negative) Urine Dip Bedside Urine Glucose Negative Bedside Urine Bilirubin - Negative Bedside Urine Ketone - Negative Urine Specific [place] 1.030 Bedside Urine Occult Blood +++ Bedside Urine pH 6.0 Bedside Urine Protein +++ 300 Bedside Urine Urobilinogen - Negative Bedside Urine Nitrite - Negative Bedside Urine Leukocytes - Negative Esterase Imaging Data CT scan - head: Radiologist's Impression: No acute findings. No intracranial hemorrhage or mass effect Lspine CT: Radiologist's Impression: Transitional anatomy present. No evidence of fracture or traumatic malalignment. Multi degenerative disc disease and arthropathy resulting in varying degrees of central and foraminal stenosis including severe central stenosis L4-L5. ECG Data Attestation: I personally reviewed and interpreted this ECG as follows: Interpretation: Sinus rhythm first-degree AV block rate of 90 IA 240 QRS 88 QTC 486. No acute MDM Narrative Medical decision making narrative: This is an 87-year-old female had a ground level fall down for approximately 4 hours on cement floor in her garage it is quite truly outside today. Patient presented with low temperature. She is on a blood thinner, did strike her head head CT was obtained. She has acute on chronic low back pain particularly L4-L5 CT L-spine does not show any fracture she does have degenerative changes. No acute new neurologic changes necessitating MRI. Little bit of white count of 15 which may be reactive, hemoglobin 16. Patient's creatinine is 1.09 which is improved from her usual baseline. Mild LFT changes. Troponin was positive, trending down words maybe demand ischemia CK-MB was 16. She does not have chest pain she denies shortness of breath. She does not have new ST changes. Total CK is 2800. Urine today shows 5-10 RBCs moderate bacteria. 1-5 WBCs and 1-5 squamous epithelial. ETOH is negative. COVID negative. Patient was given very gentle fluids to help for potential rhabdo she does have potential for fluid overload so only given 150 mL/hour. Repeat troponin shows downward trend and I suspect more demand ischemia but consulted with hospitalist for observation, Dr. Don accepts plan for observation, gentle fluids and pain management. Discussed patient had 2 tablets of Ray which helped resolve pain. Her normal pain management is an edible and Tylenol as needed at home. Discharge Plan Departure Patient Disposition: Admitted as Observation Clinical Impression: Rhabdomyolysis, Fall from ground level, Demand ischemia, Low back pain Admit Date/Time: 12/19/22 16:51 Admit Provider: Ree Don
[2022-12-19 12:14] LABS: Prothrombin Time 11.6 SECONDS (10.1-12.7)
[2022-12-19 12:17] LABS: PTT Partial Thromboplastin Tim 32 SECONDS (26-36)
[2022-12-19 12:19] LABS: Albumin 4.8 g/dL (3.5-5.0); Alkaline Phosphatase 108 U/L (38-126); Aspartate Aminotransferase 82 IU/L (14-36); BUN Creatinine Ratio 22.9 (6-22); Blood Urea Nitrogen 25 mg/dL (7-17); Calcium 9.7 mg/dL (8.4-10.2); Carbon Dioxide 24 mmol/L (22-32); Chloride 97 mmol/L (98-107); Estimated Glomerular Filt Rate 49 mL/min (>60); Globulin 4.7 g/dL (1.7-4.1); Glucose 145 mg/dL (80-110); HEMOLYSIS 21 (0-50); Lipase 62 U/L (23-300); Magnesium 1.9 mg/dL (1.6-2.3); Potassium 4.2 mmol/L (3.4-5.1); Sodium 136 mmol/L (137-145); Total Protein 9.5 g/dL (6.3-8.2)
[2022-12-19 12:25] LABS: Creatine Kinase 2881 U/L (30-135)
[2022-12-19 12:26] LABS: Alanine Aminotransferase 44 IU/L (<35)
[2022-12-19 12:58] LABS: CKMB % Relative Index 0.6 % (1.5-5.0)
[2022-12-19 13:00] LABS: Troponin I 0.439 ng/mL (0.01-0.034)
[2022-12-19 13:16] LABS: COVID19 -Nasal RAPID Negative (Negative)
--- NOTE | 2022-12-19 14:10 | DI.CT.S_ITS ---
PROCEDURE: CT LUMBAR SPINE WO CON INDICATIONS: low back pain, s/p fall TECHNIQUE: Noncontrast 3 mm thick sections acquired from the T12 level to the sacrum. Sagittal and coronal reformats were constructed. For radiation dose reduction, the following was used: automated exposure control. COMPARISON: None. FINDINGS: Transitional anatomy present. Hypoplastic ribs associated with the 1st lumbar vertebrae. Disc space narrowing hypertrophic facet joints present throughout the exam. Degenerative grade 1 anterior spondylolisthesis noted L4-5. No evidence of pars defect. Normal bone mineralization. Vertebral body height maintained. Paragraphs circumferential disc bulge hypertrophic facet joints results in moderate central stenosis at L2-3, L3-4 and severe central stenosis at L4-5 Atherosclerotic calcification in the abdominal aorta noted without evidence of aneurysm. IMPRESSION: Transitional anatomy present. No evidence of fracture or traumatic malalignment. Multilevel degenerative disc disease and arthropathy results in varying degrees of central and foraminal stenosis including severe central stenosis L4-5. Approved by: Dereje Crowell M.D. on 12/19/2022 at 15:03
--- NOTE | 2022-12-19 14:11 | DI.CT.S_ITS ---
PROCEDURE: CT HEAD/BRAIN WO CON INDICATIONS: fall, hit head TECHNIQUE: Noncontrast 4.5 mm thick angled axial sections acquired from the foramen magnum to the vertex, with coronal and sagittal reformats. For radiation dose reduction, the following was used: automated exposure control, adjustment of mA and/or kV according to patient size. COMPARISON: [facility], CT, CT HEAD/BRAIN WO CON, 06/09/2021, 11:27. FINDINGS: Image quality: Excellent. CSF spaces: Basal cisterns are patent. No extra-axial fluid collections. Ventricles are normal in size and shape. Brain: No midline shift. No intracranial masses or hemorrhage. Phel[place]-white matter interface is normal. Auto text old brain. Old right MCA watershed infarcts noted in the frontal and parietal lobes Skull and face: Calvarium and visualized facial bones are intact, without suspicious lesions. Incidental hyperostosis frontalis interna noted. Sinuses: Visualized sinuses and mastoids are clear. IMPRESSION: No acute findings. No intracranial hemorrhage or mass effect. Atrophy and chronic ischemic change and old right MCA infarct, stable Approved by: Dereje Crowell M.D. on 12/19/2022 at 15:07
[2022-12-19 14:18] LABS: Ethanol (ETOH) < 10 mg/dL
[2022-12-19 14:27] LABS: NT-proBNP (BNP-Adult 18+) 4250 pg/mL (<450)
[2022-12-19 14:47] LABS: Troponin I 0.435 ng/mL (0.01-0.034)
[2022-12-19] MEDS: ONDANSETRON 4 MG/2 ML INJ IV (14:58)
[2022-12-19] MEDS: HYDROCODONE/ACET 5/325 TABLET 2 TAB PO (14:59)
[2022-12-19] MEDS: SODIUM CHLORIDE 0.9% 1,000 ML 150 ML IV (14:59)
[2022-12-19 16:13] LABS: Bacteria Urine Moderate (10-30); Culture Indicated Urine Cult Not Indicated; Granular Casts Urine 5-10/LPF; Hyaline Casts Urine 5-10/LPF; RBC Urine 5-10/HPF (0-5/HPF); Squamous Epithelial Cell Urine 1-5 /HPF (0-5/HPF); WBC Urine 1-5/HPF (0-5/HPF)
--- NOTE | 2022-12-19 21:21 | DI.MRI.S_ITS ---
PROCEDURE: MR STROKE Pre- and post-contrast brain MRI, non-contrast brain MR angiogram, pre- and postcontrast neck MR angiogram INDICATIONS: Hx CVA x2, GLF, head injury TECHNIQUE: Brain: Noncontrast axial T1 spin echo, axial T2 fast spin echo, sagittal and axial FLAIR, coronal T2 fast spin echo, axial gradient echo, axial diffusion and ADC through the brain. After the administration of contrast, axial 3D VIBE of the cranial vasculature and brain. Brain MRA: Non-contrast 3-D time of flight MR angiogram, with multiple gcxqvha-ztkkonlub-pfhfhelpce (MIP) reformats performed. Neck MRA: Axial and sagittal TruFISP through the neck. Coronal dynamic MR angiogram during administration of contrast in the arterial and venous phases, with 3-dimenstional amrowcg-lnmffoxww-hyfmgiublh (MIP) reformats constructed from subtraction images. COMPARISON: [facility], MR, MR STROKE, 05/24/2019, 11:34. FINDINGS: Image quality: Excellent. BRAIN: CSF spaces: Ventricles are normal in size and shape. Basal cisterns are patent. No extra-axial fluid collections. Brain: Atrophy and multifocal white matter chronic ischemic change. Encephalomalacia and gliosis noted in the right MCA territory, similar prior exam. No mass effect. No intracranial hemorrhage. Associated atrophy of the right cerebral peduncle. Old lacunar infarct in the left basis pontis is nevertheless new from the prior exam. Skull and face: Calvarial marrow signal is normal. Orbits appear normal. Bilateral intraocular lens replacements noted. Sinuses: Sinuses and mastoids are clear. BRAIN MR ANGIOGRAM: Anterior circulation: Intracranial internal carotid arteries are normal in size and enhancement. The flow within the paired anterior cerebral arteries is normal and symmetric. Diminutive distal right MCA branches, consistent with old infarct The anterior communicating artery is seen. No stenoses, occlusions, or aneurysms. Posterior circulation: Right intradural vertebral artery is thready and shows tandem stenosis and/or occlusion, similar to the prior. The flow within the dominant left vertebral artery is patent. The flow within the posterior cerebral arteries is normal and symmetric. NECK MR ANGIOGRAM: Carotids: Great vessels demonstrate a conventional anatomy as they arise from the aortic arch. The origins of the common carotid arteries appear patent. The calibers and courses of both common carotid arteries are normal. Proximal ICA remains stable from the prior. Posterior circulation: The origins of the vertebral arteries appear patent. More superior portions of both vertebral arteries demonstrate normal course and caliber, and join to form a normal appearing basilar artery. Miscellaneous: Subclavian arteries appear patent. Pre-contrast images through the neck show no soft tissue abnormalities. IMPRESSION: Chronic old right MCA infarct associated with encephalomalacia and gliosis as well as atrophy and volume loss of the right cerebral peduncle, similar to the prior. Atrophy and chronic ischemic change without acute infarct, hemorrhage or mass lesion. There is an old lacunar pontine infarct which is nevertheless new from the prior study and 2019. 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 on 12/20/2022 at 12:39
--- NOTE | 2022-12-19 21:27 | DI.ECHO.S_ITS ---
[facility] +---------+ : : [address] : [address] : : : : [id number] : : : : Phone: [phone]+ Echocardiogram Report + + :Name: ANITA FRANKLIN Study Date: 12/20/2022 Height: 63 in : :[facility] ReadingLocation: Weight: 225 lb : : Gender: Female BSA: 2.0 m2 : :: 1935 Age: 87 yrs BP: 111/56 mmHg: :Reason For Study: IL : :Ordering Physician: KWAME, : :IRENE Performed By: Ebony Obrien : :Referring: IRENE PUENTE : + + Interpretation Summary The ejection fraction is estimated to be 65-70%. Diastolic function could not be accurately assessed due to confounding valvular disease. The left atrium is severely dilated. The right ventricle is normal in size and function. There is moderate mitral stenosis. There is mild mitral regurgitation. There is severe aortic stenosis. There is mild tricuspid regurgitation. Pulmonary artery pressures cannot be estimated because of the lack of a measurable TR jet velocity. Compared to the prior study dated 05/24/2019, the aortic and mitral valve gradients have increased. Procedure: A two-dimensional transthoracic echocardiogram with color flow and Doppler was performed. The study quality was technically adequate. Comparison is made with the echocardiogram of 05/24/2019. The patient was in sinus rhythm with heart rates between 83-110 bpm during the exam. Left Ventricle: The left ventricle is normal in size. Proximal septal thickening is noted. The ejection fraction is estimated to be 65-70%. Diastolic function could not be accurately assessed due to confounding valvular disease. Right Ventricle: The right ventricle is normal in size and function. Atria: The left atrium is severely dilated. Right atrial size is normal. There is no Doppler evidence for an interatrial shunt. Mitral Valve: The mitral valve leaflets are moderately calcified. There is moderate mitral annular calcification. The mitral valve chordae are thickened and/or calcified. The mitral valve mean gradient is 5.9 mmHg. There is moderate mitral stenosis. There is mild mitral regurgitation. Aortic Valve: The aortic valve is severely calcified. The peak aortic velocity is 4.1 m/sec. The aortic valve mean gradient is 45 mmHg. The calculated aortic valve area is 0.99 cm2. There is severe aortic stenosis. There is trace aortic regurgitation. Tricuspid Valve: The tricuspid valve leaflets are thickened and/or calcified, but open well. There is mild tricuspid regurgitation. Pulmonary artery pressures cannot be estimated because of the lack of a measurable TR jet velocity. Pulmonic Valve: The pulmonic valve is not well seen, but is grossly normal. There is no pulmonic valvular regurgitation. Great Vessels: The aortic root is normal size. The dimensions of the ascending aorta are normal. The inferior vena cava was not visualized. Pericardium/ Pleura There is no pericardial effusion. There is no pleural effusion. MMode/2D Measurements & Calculations LVIDd: 4.5 cm LVOT diam: 1.8 cm LVIDs: 2.6 cm Ao root diam: 2.8 cm FS: 41.0 % asc Aorta Diam: 3.3 cm IVSd: 0.84 cm Ao Arch Diam (Prox Trans): 3.0 cm LVPWd: 0.82 cm LV diaz. diameter/BSA (cm/m^2): 2.2 LV sys. diameter/BSA (cm/m^2): 1.3 LA A2 area: 20.0 cm2 RA long axis: 4.5 cm LA A4 area: 23.3 cm2 RA area: 11.5 cm2 LA length (vol): 5.9 cm RA vol: 24.6 ml LA vol: 66.6 ml RA : 12.1 ml/m2 LA vol index: 32.8 ml/m2 RVD1 (basal): 2.7 cm RVD2 (mid): 2.6 cm TAPSE: 1.9 cm Doppler Measurements & Calculations Ao V2 max: 416.3 cm/sec LVOT Max Momo: 162.0 cm/sec Ao V2 mean: 304.0 cm/sec LV V1 max P.5 mmHg Ao max P.3 mmHg LV V1 VTI: 31.1 cm Ao mean P.8 mmHg ROBERT(I,D): 1.0 cm2 Ao V2 VTI: 80.3 cm ROBERT(V,D): 1.0 cm2 sev ratio: 0.39 ROBERT indexed to BSA (cm^2/m^2): 0.50 MV E max momo: 93.1 cm/sec PA V2 max: 119.9 cm/sec MV A max momo: 158.1 cm/sec PA V2 mean: 77.2 cm/sec MV E/A: 0.59 PA mean P.7 mmHg Lat Peak E' Momo: 6.5 cm/sec PA pr(Accel): 32.8 mmHg E/E' lat: 14.3 MV dec time: 0.21 sec MVA(VTI): 2.2 cm2 MV V2 mean: 108.2 cm/sec SV(LVOT): 81.7 ml MV mean P.9 mmHg MV V2 VTI: 37.2 cm Reading Physician:05:17 PM
--- NOTE | 2022-12-19 21:35 | P.HP_ITS ---
History of Present Illness History of Present Illness Date Patient Seen: 12/19/22 Time Patient Seen: 21:35 Chief complaint: GLF, down 4 hrs Narrative: Michela Cao is a belkis 87-year-old female with a history NSTEMI, CVA x2 w/left- sided deficit, TIA, thyroid nodule/ Eve's hypothyroidism, HTN, right carotid stenosis, chronic right sciatica, HLD who presented to the ED after falling down in her garage she believes she hit her head, remained on the floor until found by a friend, presented complaining of worsening back pain from her baseline, time down unknown. ?Patient denies any neck pain.? No chest pain or shortness of breath.? She denies any nausea or vomiting.? No dizziness.? No loss of consciousness.? She denies any new bladder or bowel incontinence but states she has some baseline urinary incontinence.? The patient is pleasantly confused she is orientated to self and place and intermittently recalls events, but believes she has been here for several days, and repeats statements and questions numerous times. Becomes easily confused and disorientated. It has been reported to the staff from her niece that she has had gradual memory loss progressing over the years but this is an acute worsening of her symptoms. Unable to obtain accurate HPI, ROS, medication reconciliation or history due to acute encephalopathy on chronic cognitive impairment. Patient does report that she frequently falls at home inside on the carpet which aren't really fall, she does have a walker and has a home health aide that comes in 3 days a week. Patient's left arm is significantly contracted with muscle wasting, intention tremor noted. On admit patient denies chest pain, shortness in breath, headache, acute changes in vision, difficulty swallowing, speech impairment, numbness, tingling, LOC, fever, body aches, chills, cough, recent exposure to illness, abdominal pain, nausea, vomiting, urinaryretention, dysuria, frequency, urgency, hematuria, bowel changes, constipation, melena, rashes, recent changes to medication, illness. Admit temp 98.1?, 150/85, 93, 20, 95%. WBC 15.5 newt 13,100 H&H 16.3/49.7, BUN 25 creatinine 1.09, GFR 49 (2021 labs creatinine 1.06-1.36, GFR 36.9-29.2), glucose 145, AST 82, ALT 44, CK 2881, CK-MB 16, BNP 40-50, total protein 9.5, globin 4.7, ETOH negative, COVID negative, initial troponin 0.439, repeat 0.435-EKG I personally reviewed sinus rhythm with a first-degree AV block with a rate of 90 without acute changes. I personally reviewed all imaging head CT negative for acute intracranial changes, old right MCA infarct, lumbar CT negative for acute changes noted disc disease L4-L5 severe canal stenosis, hip x-ray negative, chest x-ray noted cardiomegaly, moderate vascular congestion. Patient's urine bacteria moderate no culture was completed. Patient admitted for ground level fall, head injury, rhabdomyolysis, myocardial injury, encephalopathy. 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 Lumbar spinal stenosis Osteopenia Osteopenia Stenosis of right carotid artery greater than 50% Surgical History History of bilateral breast reduction surgery History of cataract extraction with lens replacement History of cholecystectomy History of hysterectomy Family & Social History Family History Other Adopted (not a blood relative) Social History: household members friend(s) Safety & Behavioral: Feels Safe in Current Yes Environment Been Physically Hurt or No Threatened By a Person Tobacco & Substance use: Smoking Status Never smoker alcohol intake current alcohol intake frequency holiday/special occasion Substance Use Type marijuana Meds Home Medications and Allergies Home Medications Medication Instructions Recorded Confirmed Type aspirin 25 mg-dipyridamole 200 mg 1 cap PO BID 05/24/19 05/24/19 History capsule,ext.release 12 hr multiphase gabapentin 100 mg capsule 100 mg PO TID 05/24/19 05/24/19 History levothyroxine 175 mcg tablet 175 mcg PO DAILY 05/24/19 05/24/19 History oxybutynin chloride 5 mg tablet 5 mg PO BID 05/24/19 05/24/19 History rosuvastatin 40 mg tablet 40 mg PO DAILY 05/24/19 05/24/19 History Allergies Allergy/AdvReac Type Severity Reaction Status Date / Time No Known Drug Allergies Allergy Verified 01/31/21 11:35 Review of Systems Review of Systems Narrative: Unable to obtain accurate HPI, ROS, medication reconciliation or history due to acute encephalopathy on chronic cognitive impairment. All 12 point systems rev iewed with the patient and are negative except otherwise documented. Exam Vital Signs (past 8 hours): - 12/19/22 14:00 12/19/22 14:01 12/19/22 14:01 Temperature Pulse Rate 87 87 Respiratory Rate 21 21 Blood Pressure 151/58 H Pulse Oximetry 94 95 Oxygen Delivery Method Oxygen Flow Rate 12/19/22 14:30 12/19/22 14:30 12/19/22 15:23 Temperature Pulse Rate 88 Respiratory Rate 24 Blood Pressure 154/118 H 126/60 Pulse Oximetry 94 Oxygen Delivery Method Oxygen Flow Rate 12/19/22 15:30 12/19/22 15:30 12/19/22 16:00 Temperature Pulse Rate 94 H Respiratory Rate 23 Blood Pressure 133/60 112/56 L Pulse Oximetry 95 Oxygen Delivery Method Oxygen Flow Rate 12/19/22 16:00 12/19/22 16:30 12/19/22 16:30 Temperature Pulse Rate 88 84 Respiratory Rate 18 14 Blood Pressure 101/58 L Pulse Oximetry 94 94 Oxygen Delivery Method Room Air Oxygen Flow Rate 12/19/22 17:00 12/19/22 17:00 12/19/22 17:30 Temperature Pulse Rate 85 Respiratory Rate 13 Blood Pressure 124/56 L 109/57 L Pulse Oximetry 92 Oxygen Delivery Method Oxygen Flow Rate 12/19/22 17:30 12/19/22 18:00 12/19/22 18:00 Temperature Pulse Rate 87 82 Respiratory Rate 15 13 Blood Pressure 101/50 L Pulse Oximetry 92 94 Oxygen Delivery Method Room Air Room Air Oxygen Flow Rate 12/19/22 18:30 12/19/22 18:30 12/19/22 19:15 Temperature 98.1 F Pulse Rate 82 93 H Respiratory Rate 13 20 Blood Pressure 104/50 L 150/85 H Pulse Oximetry 93 95 Oxygen Delivery Method Oxygen Flow Rate 0 Oxygen Delivery Method Room Air Oxygen Flow Rate 0 Narrative Exam Narrative: General: Patient is a very pleasantly confused mildly obese female, in no distress at this time. HEENT: Normocephalic, atraumatic, extraocular muscles intact, oral pharynx is clear and mucous membranes are dry. Mild left facial deficit. Neck is supple and symmetric, trachea is midline, no adenopathy, no thyroid enlargement, nontender, no masses palpated. Negative for JVD Chest: Breathing without nasal flaring, retractions, or labor, mildly tachypneic Lungs: Auscultation of all lung king, fine crackles in bilateral bases Cardio: regular rate and rhythm with murmur 3/5, without rubs, or gallops, no carotid bruit, no cardiac pulsations present. Abdomen: Soft nontender, negative for organomegaly, or masses. Bowel sounds are hyperactive present in all 4 quadrants without guarding or rebound, no CVA tenderness. Musculoskeletal: Muscle strength/tone greater on right, left upper extremity noted contracture muscle wasting intention tremor, mild bilateral nonpitting +1 lower extremity edema. Full range of motion intact radial and pedal pulses are normal. Skin: Warm dry and intact without rashes, ulcerations or petechiae. mild abrasion to right hand mid 3rd finger. Neuro: Alert and orientated x2, moves all extremities, sensation to touch intact, no gross deficits noted of cranial nerves. Psych: Patient has a well-kept appearance, appropriate affect, mental status attitude thought context and judgment are impaired. Objective Labs 12/19/22 11:25 12/19/22 11:25 Labs: Laboratory Results - last 24 hr 12/19/22 12/19/22 12/19/22 11:25 11:25 11:25 WBC 15.1 H RBC 5.59 H Hgb 16.3 H Hct 49.7 H MCV 89.0 MCH 29.1 MCHC 32.7 RDW 14.7 Plt Count 271 Neut % (Auto) 87.1 H Lymph % (Auto) 6.9 L Vance % (Auto) 5.6 Eos % (Auto) 0.0 L Baso % (Auto) 0.4 Neut # (Auto) 13472 H Lymph # (Auto) 1000 L Vance # (Auto) 800 Eos # (Auto) 0 Baso # (Auto) 100 PT 11.6 INR 1.0 APTT 32 Sodium 136 L Potassium 4.2 Chloride 97 L Carbon Dioxide 24 BUN 25 H Creatinine 1.09 H Estimated GFR 49 L BUN/Creatinine Ratio 22.9 H Glucose 145 H Calcium 9.7 Magnesium 1.9 Total Bilirubin 1.0 AST 82 H ALT 44 H Alkaline Phosphatase 108 Total Creatine Kinase 2881 H CK-MB (CK-2) 16.00 H CK-MB (CK-2) Rel Index 0.6 L Troponin I 0.439 H* NT-Pro-B Natriuret Pep Total Protein 9.5 H Albumin 4.8 Globulin 4.7 H Albumin/Globulin Ratio 1.0 Lipase 62 Urine RBC Urine WBC Ur Squamous Epith Cells Urine Bacteria Hyaline Casts Granular Casts Ur Culture Indicated? Ethyl Alcohol SARS-CoV-2 (PCR) 12/19/22 12/19/22 12/19/22 11:25 12:43 14:05 WBC RBC Hgb Hct MCV MCH MCHC RDW Plt Count Neut % (Auto) Lymph % (Auto) Vance % (Auto) Eos % (Auto) Baso % (Auto) Neut # (Auto) Lymph # (Auto) Vance # (Auto) Eos # (Auto) Baso # (Auto) PT INR APTT Sodium Potassium Chloride Carbon Dioxide BUN Creatinine Estimated GFR BUN/Creatinine Ratio Glucose Calcium Magnesium Total Bilirubin AST ALT Alkaline Phosphatase Total Creatine Kinase CK-MB (CK-2) CK-MB (CK-2) Rel Index Troponin I 0.435 H* NT-Pro-B Natriuret Pep 4250 H Total Protein Albumin Globulin Albumin/Globulin Ratio Lipase Urine RBC Urine WBC Ur Squamous Epith Cells Urine Bacteria Hyaline Casts Granular Casts Ur Culture Indicated? Ethyl Alcohol < 10 SARS-CoV-2 (PCR) Negative 12/19/22 15:25 WBC RBC Hgb Hct MCV MCH MCHC RDW Plt Count Neut % (Auto) Lymph % (Auto) Vance % (Auto) Eos % (Auto) Baso % (Auto) Neut # (Auto) Lymph # (Auto) Vance # (Auto) Eos # (Auto) Baso # (Auto) PT INR APTT Sodium Potassium Chloride Carbon Dioxide BUN Creatinine Estimated GFR BUN/Creatinine Ratio Glucose Calcium Magnesium Total Bilirubin AST ALT Alkaline Phosphatase Total Creatine Kinase CK-MB (CK-2) CK-MB (CK-2) Rel Index Troponin I NT-Pro-B Natriuret Pep Total Protein Albumin Globulin Albumin/Globulin Ratio Lipase Urine RBC 5-10/hpf H Urine WBC 1-5/hpf Ur Squamous Epith Cells 1-5 /hpf Urine Bacteria Moderate (10-30) H Hyaline Casts 5-10/lpf Granular Casts 5-10/lpf Ur Culture Indicated? Cult not indicated Ethyl Alcohol SARS-CoV-2 (PCR) Assessment & Plan Assessment & Plan narrative: Michela Cao is an 87-year-old female with a history NSTEMI, CVA x2 w/left-sided deficit, TIA, thyroid nodule, Eve's hypothyroidism, HTN, right carotid stenosis, chronic right sciatica, HLD who presented to the ED after fell down on her garage floor until found by a neighbor, time down unknown. Patient admitted for ground level fall, head injury, rhabdomyolysis, myocardial injury, leukocytosis, and encephalopathy. Patient admitted for observation, to complete MRI imaging to rule out stroke, hemorrhagic, evaluate for carotid stenosis, resolution of encephalopathy, hydration for rhabdomyolysis, echocardiogram in the setting of myocardial injury, rule out causes of leukocytosis, and evaluation and recommendations regarding physical rehabilitation and stay safety in returning to live at home alone. 1. Ground level fall resulting in head injury, with encephalopathy, acute, Unstable gait/frequent falls, chronic, present on admission -Admit temp 98.1?, 150/85, 93, 20, 95%. -I personally reviewed all imaging head CT negative for acute intracranial changes, old right MCA infarct, -lumbar CT negative for acute changes noted disc disease L4-L5 severe canal stenosis, -hip x-ray negative, -chest x-ray noted cardiomegaly, moderate vascular congestion. -because patient has a history of 2 prior CVAs, and is at risk for hemorrhagic stroke will hold all VTE/blood thinners until negative MRI tomorrow. 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 Encephalopathy, acute on cognitive impairment, chronic, present on admission -MRI tomorrow -neuro checks as needed 3. Rhabdomyolysis secondary to ground level fall, acute, downtime unknown, present on admission -CK 2881, CK-MB 16 -gentle rehydration NS at 60 cc HR 4. Myocardial injury as evidenced by troponin> 99th percentile, likely demand ischemia secondary to fall, acute, present on admission -patient is stable asymptomatic without chest pain shortness breast diaphoresis -initial troponin 0.439, repeat 0.435, repeat 0.466- will continue to trend until downtrending BNP 4250 -EKG I personally reviewed sinus rhythm with a first-degree AV block with a rate of 90 without acute changes. -echo ordered for tomorrow -last echo 05/23/2019 EF 65-70% 5. Leukocytosis, neutrophilic, acute, present on admission -likely related to fall and rhabdomyolysis - WBC 15.5 newt 13,100 -COVID negative, urine: bacteria moderate- ordered culture, procalcitonin, lactate, blood culture 6. Hypothyroidism secondary to Eve's, chronic, present on admission -TSH ordered -continue levothyroxine 7. Hyperlipidemia, chronic, present on admission -provide Lipitor in place of rosuvastatin 8. Chronic low back pain/sciatica, right, chronic, present on admission -continue home pain medication, gabapentin, Oxy 9. Obesity, moderate, acute on chronic, present on admission -dietary consult ordered regarding nutritional education and information for dietary, lifestyle, exercise, and weight changes. -the patient is at much higher risk for medical and surgical complications due to obesity as it relates to chronic illnesses, and acute illness. The patient's obesity increases the difficulty and complexity of medical and/or surgical interventions, management and increases the chances of poor outcome such as morbidity and mortality as well as impaired wound healing. 10. History of CVA x2 with left deficit, history of TIA, chronic, present on admission -this patient is at high risk of recurrent strokes 11. CKD stage G3b, chronic, present on admission-stable -BUN 25 creatinine 1.09, GFR 49 (2021 labs creatinine 1.06-1.36, GFR 36.9-29.2) Code status: DNR DNI Surrogate decision maker: Kalpana geerylan- friend COVDENIS PCR:Negative DVT/VTE prophylaxis:Holding med until clear MRI/SCD's only Disposition: Patient admitted for observation, expected length of stay less than 2 midnights. I have utilized all available immediate resources to obtain, update, or review the patient's current medications. I confirmed that the patient's advanced care plan is present, Code status is documented and/or surrogate decision maker is listed in the patient's medical record. I have personally reviewed patient's chart notes from PCP, specialists, [facility], and laboratory results. Time Spent With Patient Critical Care time: I spent a total of [] minutes of critical care time on this patient's care today; this time is exclusive of procedural time.
[2022-12-19 22:13] LABS: Add Manual Diff / Slide Review NO; Basophils Absolute Auto 0 /uL (0-100); Basophils Percent Auto 0.2 % (0-2); Eosinophils Absolute Auto 0 /uL (0-450); Eosinophils Percent Auto 0.2 % (2-4); Hematocrit 43.2 % (36-46); Hemoglobin 14.7 g/dL (12.0-16.0); Lymphocytes Absolute Auto 1600 /uL (1100-4500); Lymphocytes Percent Auto 12.7 % (25-40); Mean Corpuscular Hemoglobin 30.2 PG (26-34); Monocytes Absolute Auto 1300 /uL (0-900); Neutrophils Absolute Auto 9800 /uL (1500-7000); Neutrophils Percent Auto 76.9 % (50-75); Platelet Count 202 X10^3/uL (150-400); Red Blood Cell Count 4.86 X10^6/uL (4.0-5.2); Red Cell Distribution Width 14.6 % (11.6-14.8); White Blood Cell Count 12.8 X10^3/uL (4.5-11.0)
[2022-12-19 22:25] LABS: Hemoglobin A1C% w Est Avg Glu 6.1 % (4.0-6.0)
[2022-12-19 22:31] LABS: Lactate (Lactic Acid) 1.5 mmol/L (0.7-2.1)
[2022-12-19] MEDS: GABAPENTIN 100 MG CAPSULE PO (22:34)
[2022-12-19] MEDS: SENNOSIDES 8.6 MG TABLET 17.2 MG PO (22:34)
[2022-12-19] MEDS: SODIUM CHLORIDE 0.9% 1,000 ML 60 ML IV (22:34)
[2022-12-19] MEDS: ATORVASTATIN 20 MG TABLET PO (22:34)
[2022-12-19] MEDS: ACETAMINOPHEN 325 MG TABLET 650 MG PO (22:34)
[2022-12-19 22:37] LABS: Procalcitonin 0.16 ng/mL (<0.5)
[2022-12-19 22:46] LABS: Troponin I 0.466 ng/mL (0.01-0.034)
[2022-12-19 22:49] LABS: Thyroid Stimulating Hormone 1.28 uIU/mL (0.47-4.68)
[2022-12-19] MEDS: OXYCODONE IR 5 MG TABLET 10 MG PO (23:02)
[2022-12-20] VITALS (7 sets, daily range): BP systolic 99–125; BP diastolic 49–77; PULSE 74–88; RESP 16–21; TEMP 35.9–36.9; O2SAT 91–99
[2022-12-20 04:12] LABS: Add Manual Diff / Slide Review NO; Basophils Absolute Auto 0 /uL (0-100); Basophils Percent Auto 0.3 % (0-2); Eosinophils Absolute Auto 0 /uL (0-450); Eosinophils Percent Auto 0.3 % (2-4); Hematocrit 40.6 % (36-46); Hemoglobin 13.4 g/dL (12.0-16.0); Lymphocytes Absolute Auto 1400 /uL (1100-4500); Lymphocytes Percent Auto 11.9 % (25-40); Mean Corpuscular HGB Conc 33.1 % (30-36); Mean Corpuscular Hemoglobin 29.2 PG (26-34); Mean Corpuscular Volume 88.2 fL (80-100); Monocytes Absolute Auto 1100 /uL (0-900); Monocytes Percent Auto 8.9 % (3-14); Neutrophils Absolute Auto 9500 /uL (1500-7000); Neutrophils Percent Auto 78.6 % (50-75); Platelet Count 207 X10^3/uL (150-400); Red Cell Distribution Width 14.7 % (11.6-14.8); White Blood Cell Count 12.1 X10^3/uL (4.5-11.0)
[2022-12-20 04:19] LABS: Alanine Aminotransferase 27 IU/L (<35); Albumin 3.7 g/dL (3.5-5.0); Albumin Globulin Ratio 1.1 (1.0-2.8); Alkaline Phosphatase 71 U/L (38-126); Aspartate Aminotransferase 91 IU/L (14-36); BUN Creatinine Ratio 19.3 (6-22); Bilirubin Total 0.9 mg/dL (0.2-1.3); Blood Urea Nitrogen 34 mg/dL (7-17); Calcium 8.5 mg/dL (8.4-10.2); Carbon Dioxide 26 mmol/L (22-32); Chloride 101 mmol/L (98-107); Estimated Glomerular Filt Rate 28 mL/min (>60); Globulin 3.4 g/dL (1.7-4.1); Glucose 121 mg/dL (80-110); HEMOLYSIS < 15 (0-50); Magnesium 1.9 mg/dL (1.6-2.3); Potassium 4.5 mmol/L (3.4-5.1); Sodium 135 mmol/L (137-145); Total Protein 7.1 g/dL (6.3-8.2)
[2022-12-20 04:33] LABS: Cholesterol 214 mg/dL (140-199); HDL Cholesterol 57 mg/dL (40-60); LDL Cholesterol Calculated 137 mg/dL (<100); Triglycerides 101 mg/dL (35-150); Troponin I 0.361 ng/mL (0.01-0.034)
[2022-12-20] MEDS: LEVOTHYROXINE 125 MCG TABLET PO (10:17)
[2022-12-20] MEDS: GABAPENTIN 100 MG CAPSULE PO ×3 (10:17→21:40)
--- NOTE | 2022-12-20 10:43 | PT.IIE ---
Surgical History (Last Reviewed 12/19/22 @ 21:58 by Vianney Madrigal [facility]) History of bilateral breast reduction surgery History of cataract extraction with lens replacement History of cholecystectomy History of hysterectomy Medical History (Last Updated 12/19/22 @ 21:45 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 Lumbar spinal stenosis Osteopenia Osteopenia Stenosis of right carotid artery greater than 50% Physical Therapy Inpatient Evaluation/Re-Eval M1 PT/OT-IP Prior Functional Status Start: 12/20/22 08:35 Freq: NEEDED Status: Active Protocol: Document 12/20/22 10:14 AMB (Rec: 12/20/22 10:43 AMB [id number]) Medical Review Prior Functional Status Medical History Reviewed Yes Mobility and Gait Pt reports she has a walker and a home health aide, she does trip a lot Social History Household Members none Living Arrangements House Number of Floors (Floors) One Floor Home Equipment Front Wheel Walker Employment Status Retired Additional Social History Comment Pt has private pay aide that currently comes 3 days per week M2 PT-IP Current Condition Start: 12/20/22 08:35 Freq: NEEDED Status: Active Protocol: Document 12/20/22 10:14 AMB (Rec: 12/20/22 10:43 AMB [id number]) Physical Therapy Current Condition Current Condition Evaluation Date 12/20/22 Treatment Diagnosis GLF with encephalopathy, rhabdo, hx CVA with L neela Onset Date 12/19/22 M3 PT-IP Subjective Start: 12/20/22 08:35 Freq: NEEDED Status: Active Protocol: Document 12/20/22 10:14 AMB (Rec: 12/20/22 10:43 AMB [id number]) Subjective Physical Therapy Visit Type Type Initial Evaluation Visit Start Time 09:30 Visit Stop Time 10:00 Total Visit Minutes 30 Physical Therapy Visit Comments Patient Comments I really need to poop M4 PT-IP Mobility and Gait Start: 12/20/22 08:35 Freq: NEEDED Status: Active Protocol: Document 12/20/22 10:14 AMB (Rec: 12/20/22 10:43 AMB [id number]) PT-Bed Mobility Assessment Rolling Type of Rolling Log Rolling,Roll to Left Level of Assist Moderate Assistance Supine to Sit Supine to Sit Moderate Assistance,1 Person Assistance,Head of Bed Elevated,Bedrails Sit to Supine Sit to Supine Moderate Assistance,1 Person Assistance,Head of Bed Elevated,Bedrails Scooting Scooting to Edge of Bed Moderate Assistance Scooting Up and Down in Bed Moderate Assistance PT-Transfer Assessment Sit to and From Stand Sit to and from Stand Minimal Assistance,1 Person Assistance,Use of Upper Extremities Equipment Transfer Assistive Device Bed Rail,Gait Belt,Front Wheeled Walker Transfers Transfer Destination Bed,Bedside Commode Transfer Technique Stand Step Pivot Transfer Ability Level of Assist Minimal Assistance Comments Mobility Comments Pt was lying in bed upon PT arrival, denied dizziness at the time. Pt really needed to have a BM. Pt's L UE and LE weak after old CVA so needed ModA for rolling moving from sidelying to sitting and for sitting balance until feet were on the floor. Donald sit to stand to walker and then transfer to the commode with 3 -4 steps with walker and Donald. Pt's L hand has flexor tone s/p old CVA which makes it difficult for her to independently move the hand from the walker to the commode , but she can systems integration engineer the handle once the hand is placed there. Gait Assessment Gait Gait Assistance Required: Minimum Assistance,1 Person Assist Distance (Feet) 3 Assistive Devices Assistive Device Gait Belt,Front Wheeled Walker Gait Deviations General Gait Pattern Decreased Stride Length, Decreased Feet Clearance Factors Limiting Gait Function Factors Limiting Gait Function Decreased Activity Tolerance, Decreased Strength,Poor Balance Comments Gait Comments Pt ambulated 3-4 steps with Donald and FWW to the bedside commode, was able to sidestep and step backwards with Donald as well. M5 PT-IP Objective Assessments Start: 12/20/22 08:35 Freq: NEEDED Status: Active Protocol: Document 12/20/22 10:14 AMB (Rec: 12/20/22 10:43 AMB [id number]) Strength Upper Extremity Strength Assessment Left Impaired Lower Extremity Strength Assessment Left Impaired M7 PT-IP Assessment and Plan Start: 12/20/22 08:35 Freq: NEEDED Status: Active Protocol: Document 12/20/22 10:14 AMB (Rec: 12/20/22 10:43 AMB [id number]) PT Summary Assessment and Plan Potential Rehabilitation Potential Good Status of Condition at Evaluation Stable Summary Impairments Strength,Balance,Sensation, Tone,Bed Mobility,Transfers, Gait,Activity Tolerance Assessment Summary Michela was admitted to observation status s/p GLF in her garage. She states she knows she was not supposed to be in her garage alone. She does have frequent small falls, but this was a big one . She has L sided weakness s/ p old CVA. She demonstrated need for ModA with bed mobility, but then once she was up on her feet Donald with transfers and gait for very short duration. Patient likely could have ambulated a bit more but between needing to have a BM and lab and imaging needing pt, PT was cut short. At this point given the patient's need for heavy assist with bed mobility, pt would benefit from SNF upon discharge from hospital. If her mobility improves rapidly she could consider home with home health, but she would need to show significant improvement in bed mobility and gait duration for that to be a safe option. Goals Bed Mobility Goal Minimal Assistance Transfer Goal Minimal Assistance,Front Wheeled Walker Gait Goal Minimal Assistance,Front Wheel Walker Gait Distance 50 Days to Meet Goals 7 Frequency of Treatment Frequency Of Treatment Once a Day Treatment Plan Physical Therapy Treatment Plan Bed Mobility Training,Transfer Training,Gait Training, Therapeutic Exercise,Balance Retraining,Neuromuscular Re-ed Recommendations To Nursing Amount of Assist Needed 1 Person Assist Discharge Recommendations PT Discharge Recommendations Home vs SNF Transportation Needs at Discharge Wheelchair/Cabulance
[2022-12-20 10:49] LABS: Creatine Kinase 4578 U/L (30-135)
[2022-12-20 10:51] LABS: Troponin I 0.252 ng/mL (0.01-0.034)
[2022-12-20] MEDS: ENOXAPARIN 30 MG/0.3 ML SYRINGE SUBCUT (13:53)
--- NOTE | 2022-12-20 14:09 | CM.DANOTE ---
Addendum entered by Yolanda Garrett R.N. 12/20/22 15:49: Faxed over the referral to [facility], faxed face sheet, orders, face to face, H&P, and P.T. notes. Had called [facility] earlier about the referral. Original Note: DCP: Case received, EMR reviewed and met with patient. Niece, Michela and spouse were at bedside, they reside near [place]. Introduced self and role. Was able to obtain information regarding patient's baseline activity status at home prior to fall, as well as her current living situation. DCP assessment completed with information currently available. Patient is an 87 year old female who admitted yesterday afternoon to the care of the hospitalist team. PCP: Dr. Idalia Bashir. Payer: confirmed: Medicare/[employer]. Patient came to the hospital via ambulance secondary to a ground level fall. Notes indicate that patient had been in her garage, tripped, fell, and was on the concrete floor. Confirmed with patient and niece that patient has a lifeline, but was not wearing it. Patient has history of NSTEMI, she had been at [facility], went to skilled rehab. Notes also indicate that patient had been on the ground for about 4 hours. Patient was admitted for encephalopathy, acute, Rhabdomyolisis, Myocardial injury. Met with patient in her room. She was laying in bed. Her niece, Michela and spouse were at bedside. Confirmed that she resides alone here in [place]. She does not drive, her neighbor, Kalpana Ho, drives her to appointments. She has a POA named Michela Rivas. Her number is: [phone]. Patient has given permission to contact her, and can also speak to her neighbor, Kalpana, as well. Patient uses a walker/cane, at baseline, and has [facility] coming in about 3 times a week. Her neighbor helps with meals, and caregiver with showers. Brought in Medicare Choice List and ipad, with reviews. At this time, she is refusing to go to skilled. She had a bad experience with the one in [place], does not want to go through this again. Encouraged niece to contact her caregiving agency to see if they can increase care. Niece concerned about her going home, but is aware that patient is decisional, and can make that choice. Niece will contact Michela Rivas, and will still look over skilled facilities, but do want [facility]. This DC Product Delivery Specialist can follow up with POA as well. She has not yet worked with P.T. P: DCP to continue to follow and work on a plan. Contacted Mckenna from [facility], and let her know that this DC Product Delivery Specialist will send referral. Will order RN, P.T, O.T, and bath aide. Family to look over skilled facilities, and see about increasing caregiving hours. Yolanda Garrett RN/Regulatory Compliance Manager Discharge Planning/Care Management Advanced directive, confirm from FAMILY Start: 12/20/22 02:55 Freq: Q24H Status: Active Protocol: Document 12/20/22 02:55 MW (Rec: 12/20/22 03:16 MW [id number]) Advance Directive, confirm on record Time 21:00 Person contacted pt Copy received No CM Discharge Assessment Start: 12/20/22 13:58 Freq: Status: Active Protocol: Document 12/20/22 13:58 VM (Rec: 12/20/22 14:09 VM [id number]) Discharge Planning Assessment Assigned Software Analyst Yolanda Garrett RN/Regulatory Compliance Manager Advance Directives? Yes Advance Directives on File No History Provided By Patient,Medical Record Prior Living Arrangements House Household Members none Type of transporation used prior to Relies on Others admit Independent with ADL's Yes Is patient alert and oriented? Yes Needs Assistance With Bathing,Meal Prep,Home Chores / Shopping Caregiver for Another No DME Already Rented / Owned FWW / Walker,Cane Patient/Family Preference Home with Home Health Comment Patient refuses skilled rehab , wants [facility]. Barriers to Discharge Yes Comment Lives alone, does not have local family, only has [facility] 3 times a week. Discharge Plan Home with Home Health Transportation Arrangement Family. Referrals Initiated Home Health Additional Comment Patient wants [facility]. If patient plan is home with home health Yes : Has signed face to face form been completed? Medicare Choice List Provided Yes SNF/HH Preference Does not want skilled, but is reviewig. Has Agency SNF been contacted No Whiteboard Updated in Patient Room with Yes name and ext. # of Software Analyst Review Status In Process Next Review Type Continued Stay Review
[2022-12-20] MEDS: SODIUM CHLORIDE 0.9% 1,000 ML 60 ML IV (15:52)
--- NOTE | 2022-12-20 16:29 | P.PN_ITS ---
Subjective Subjective Interval history: 87-year-old female with coronary artery disease status post NSTEMI, cereb rovascular disease status post strokes x2 with left sided deficit, Eve's thyroiditis, hypertension, right carotid artery stenosis, chronic right-sided sciatica, and hyperlipidemia who was admitted last night after a ground level fall, concern for acute metabolic encephalopathy, rhabdomyolysis, and concern for myocardial injury secondary to demand ischemia. Patient underwent an MRI this morning which revealed evidence of old old strokes x2 but no acute changes. Patient was seen after eating breakfast and again this afternoon when family was present. This morning she reports that she has relatives in [place] and a friend who lives in [place]. Patient relocated here from [facility] 6-7 years ago. She lives alone but does have a caregiver 3 days weekly. She states that she is unwilling to go to a fpc facility for rehab as she had a bad experience during the pandemic at a rehab in [place]. Patient reports she is not having any significant pain. No shortness of breath. No chest pain. Exam Vital Signs (past 8 hours): - 12/20/22 09:00 12/20/22 12:04 12/20/22 12:51 Temperature 96.6 F L 96.6 F L Pulse Rate 82 84 84 Respiratory Rate 18 18 18 Blood Pressure 111/56 L 125/77 125/77 Pulse Oximetry 97 92 92 Oxygen Flow Rate 0 0 2 12/20/22 15:00 Temperature 97.6 F Pulse Rate 74 Respiratory Rate 16 Blood Pressure 117/49 L Pulse Oximetry 93 Oxygen Flow Rate 0 Oxygen Delivery Method Room Air Oxygen Flow Rate 0 Narrative Exam Narrative: GEN: Pleasant elderly female, Alert and oriented x 3, tremors noted, NAD HEENT:NC, Face symmetric CHEST: Respiratory excursions symmetric, CTAB CV: RRR, no M/R/G ABD: Soft, NT/ND, BT present in all 4 quadrants, no organomegaly or masses EXTR: warm, well perfused, no C/C/E, left upper extremity contracture present SKIN: warm and dry, no rash NEURO: Alert and oriented x 3, very pleasant, patient does have food scattered across her bed, chest and neck secondary to her tremors Objective Labs 12/20/22 03:59 12/20/22 03:59 Labs: Laboratory Results - last 24 hr 12/19/22 12/19/22 12/19/22 11:25 21:58 21:58 WBC 12.8 H RBC 4.86 Hgb 14.7 Hct 43.2 MCV 89.0 MCH 30.2 MCHC 34.0 RDW 14.6 Plt Count 202 Neut % (Auto) 76.9 H Lymph % (Auto) 12.7 L [place] % (Auto) 10.0 Eos % (Auto) 0.2 L Baso % (Auto) 0.2 Neut # (Auto) 9800 H Lymph # (Auto) 1600 [place] # (Auto) 1300 H Eos # (Auto) 0 Baso # (Auto) 0 Sodium Potassium Chloride Carbon Dioxide BUN Creatinine Estimated GFR BUN/Creatinine Ratio Glucose Hemoglobin A1c Lactate Calcium Magnesium Total Bilirubin AST ALT Alkaline Phosphatase Total Creatine Kinase Troponin I 0.466 H* Total Protein Albumin Globulin Albumin/Globulin Ratio Triglycerides Cholesterol LDL Cholesterol, Calc HDL Cholesterol Procalcitonin TSH 1.28 12/19/22 12/19/22 12/19/22 21:58 21:58 21:58 WBC RBC Hgb Hct MCV MCH MCHC RDW Plt Count Neut % (Auto) Lymph % (Auto) [place] % (Auto) Eos % (Auto) Baso % (Auto) Neut # (Auto) Lymph # (Auto) [place] # (Auto) Eos # (Auto) Baso # (Auto) Sodium Potassium Chloride Carbon Dioxide BUN Creatinine Estimated GFR BUN/Creatinine Ratio Glucose Hemoglobin A1c 6.1 H Lactate 1.5 Calcium Magnesium Total Bilirubin AST ALT Alkaline Phosphatase Total Creatine Kinase Troponin I Total Protein Albumin Globulin Albumin/Globulin Ratio Triglycerides Cholesterol LDL Cholesterol, Calc HDL Cholesterol Procalcitonin 0.16 TSH 12/20/22 12/20/22 12/20/22 03:59 03:59 03:59 WBC 12.1 H RBC 4.60 Hgb 13.4 Hct 40.6 MCV 88.2 MCH 29.2 MCHC 33.1 RDW 14.7 Plt Count 207 Neut % (Auto) 78.6 H Lymph % (Auto) 11.9 L [place] % (Auto) 8.9 Eos % (Auto) 0.3 L Baso % (Auto) 0.3 Neut # (Auto) 9500 H Lymph # (Auto) 1400 [place] # (Auto) 1100 H Eos # (Auto) 0 Baso # (Auto) 0 Sodium Potassium Chloride Carbon Dioxide BUN Creatinine Estimated GFR BUN/Creatinine Ratio Glucose Hemoglobin A1c Lactate Calcium Magnesium Total Bilirubin AST ALT Alkaline Phosphatase Total Creatine Kinase Troponin I 0.361 H* Total Protein Albumin Globulin Albumin/Globulin Ratio Triglycerides 101 Cholesterol 214 H LDL Cholesterol, Calc 137 H HDL Cholesterol 57 Procalcitonin TSH 12/20/22 12/20/22 12/20/22 03:59 03:59 10:20 WBC RBC Hgb Hct MCV MCH MCHC RDW Plt Count Neut % (Auto) Lymph % (Auto) [place] % (Auto) Eos % (Auto) Baso % (Auto) Neut # (Auto) Lymph # (Auto) [place] # (Auto) Eos # (Auto) Baso # (Auto) Sodium 135 L Potassium 4.5 Chloride 101 Carbon Dioxide 26 BUN 34 H Creatinine 1.76 H Estimated GFR 28 L BUN/Creatinine Ratio 19.3 Glucose 121 H Hemoglobin A1c Lactate Calcium 8.5 Magnesium 1.9 Total Bilirubin 0.9 AST 91 H ALT 27 Alkaline Phosphatase 71 Total Creatine Kinase 4578 H D Troponin I 0.252 H* Total Protein 7.1 Albumin 3.7 Globulin 3.4 Albumin/Globulin Ratio 1.1 Triglycerides Cholesterol LDL Cholesterol, Calc HDL Cholesterol Procalcitonin TSH [facility] Medical History (Updated 12/19/22 @ 21:45 by MICHOACANO Peralta-KOBI) Chronic sciatica of right side CVA (cerebral vascular accident) Degenerative disc disease Essential hypertension History of CVA (cerebrovascular accident) History of non-ST elevation myocardial infarction (NSTEMI) Hyperlipidemia 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 Rhabdomyolysis Patient presented after prolonged downtime after a fall. She was thought to be down for at least 4 hours. Initial CPK was 2881. Is up to 4578 today. Creatinine has also increased from 1.09-1.76. AST has increased from 82-91. Patient is on low-flow IV fluids ending results on her cardiac function. Her last echo was 3 and half years ago at which time she had a normal ejection fraction of 65-70%. She was noted to have a relaxation abnormality of the left ventricle. Mild aortic stenosis was noted at that time. Given that, and now CHF symptoms, plan to increase her IV fluid rate to cc per hour. Will also hold her statin due to risk for myopathy in the setting of rhabdo. Will repeat CPK in the morning. 2. Acute metabolic encephalopathy in the setting of some degree of chronic cognitive impairment Patient is alert and oriented today. She is able to tell me her history in significant detail. Family members are present. They are hoping she will be receptive to go to fpc facility for a short period of time until they can arrange further caregiving. Patient is quite adamant today that she is unwilling to consider that. She expresses that she wishes to return home with home health and her current caregiver and then adding additional caregiving as available. 3. JAGDEEP and CKD 3 Likely secondary to rhabdomyolysis. Will increase IV fluid rate as noted and recheck in the morning. 4. Acute myocardial injury, likely secondary to demand ischemia Troponins have trended down overnight. She is no active cardiac symptoms. Echocardiogram pending. 5. Leukocytosis No concern for infection. White blood cell count has improved from 15.1-12.1. Likely reactive related to her fall and injury/stress response 6. Hypothyroidism secondary to Eve's TSH is within normal range. Continue usual home medication. 7. Cerebrovascular disease with residual left-sided deficits Pending PT/OT evaluations. 8. Hyperlipidemia As noted above, holding statin therapy. Will resume it as soon as is safe to do so as her total cholesterol 214, LDL 137, HDL 57, triglycerides 101. 9. Chronic low back pain/sciatica Continue usual home medications once they can be reconciled. Family reports the medications will be confirmed this afternoon 10. Class 2 obesity BMI is 35.8. Would benefit from weight loss but her physical debility makes this difficult. 11. Hyponatremia Mild. Will follow. Code status DNR DNI Prophylaxis Lovenox ordered today Disposition alf facility if patient amenable. Otherwise home with home health Time Spent With Patient Critical Care time: I spent a total of [] minutes of critical care time on this patient's care today; this time is exclusive of procedural time.
[2022-12-20] MEDS: OXYCODONE IR 5 MG TABLET 10 MG PO (21:39)
[2022-12-20] MEDS: ACETAMINOPHEN 325 MG TABLET 650 MG PO (21:39)
[2022-12-20] MEDS: SENNOSIDES 8.6 MG TABLET 17.2 MG PO (21:40)
[2022-12-21] VITALS: BP 142/81; PULSE 91; RESP 21; TEMP 36.2; O2SAT 91
[2022-12-21 04:00] VITALS: BP 141/86; PULSE 88; RESP 20; O2SAT 93
[2022-12-21] MEDS: ACETAMINOPHEN 325 MG TABLET 650 MG PO (04:04)
[2022-12-21] MEDS: OXYCODONE IR 5 MG TABLET 10 MG PO ×3 (04:04→21:14)
[2022-12-21] MEDS: SODIUM CHLORIDE 0.9% 1,000 ML 100 ML IV (04:05)
[2022-12-21] MEDS: LEVOTHYROXINE 125 MCG TABLET PO (06:13)
[2022-12-21 06:20] LABS: Add Manual Diff / Slide Review NO; Basophils Absolute Auto 0 /uL (0-100); Basophils Percent Auto 0.5 % (0-2); Eosinophils Absolute Auto 300 /uL (0-450); Eosinophils Percent Auto 4.1 % (2-4); Hematocrit 37.6 % (36-46); Hemoglobin 12.4 g/dL (12.0-16.0); Lymphocytes Absolute Auto 1800 /uL (1100-4500); Lymphocytes Percent Auto 29.5 % (25-40); Mean Corpuscular Hemoglobin 29.4 PG (26-34); Mean Corpuscular Volume 89.2 fL (80-100); Monocytes Absolute Auto 700 /uL (0-900); Neutrophils Absolute Auto 3400 /uL (1500-7000); Neutrophils Percent Auto 54.9 % (50-75); Platelet Count 198 X10^3/uL (150-400); Red Blood Cell Count 4.21 X10^6/uL (4.0-5.2); Red Cell Distribution Width 14.7 % (11.6-14.8); White Blood Cell Count 6.2 X10^3/uL (4.5-11.0)
[2022-12-21 06:55] LABS: Alanine Aminotransferase 27 IU/L (<35); Albumin 3.3 g/dL (3.5-5.0); Alkaline Phosphatase 64 U/L (38-126); Aspartate Aminotransferase 81 IU/L (14-36); BUN Creatinine Ratio 25.8 (6-22); Bilirubin Total 0.5 mg/dL (0.2-1.3); Blood Urea Nitrogen 34 mg/dL (7-17); Calcium 8.3 mg/dL (8.4-10.2); Carbon Dioxide 25 mmol/L (22-32); Chloride 105 mmol/L (98-107); Estimated Glomerular Filt Rate 39 mL/min (>60); Globulin 3.2 g/dL (1.7-4.1); Glucose 110 mg/dL (80-110); HEMOLYSIS < 15 (0-50); Potassium 4.2 mmol/L (3.4-5.1); Sodium 134 mmol/L (137-145); Total Protein 6.5 g/dL (6.3-8.2)
[2022-12-21 06:57] LABS: Creatine Kinase 2298 U/L (30-135)
[2022-12-21 08:00] VITALS: PULSE 80; RESP 19; TEMP 36; O2SAT 94
--- NOTE | 2022-12-21 09:17 | P.PN_ITS ---
Subjective Subjective Date Patient Seen: 12/21/22 Interval history: Patient feels well. Nursing noted increased resp crackles likely from fluids. CK downtrending and Cr improving. PT cleared for home. Exam Vital Signs (past 8 hours): - 12/21/22 04:00 Pulse Rate 88 Respiratory Rate 20 Blood Pressure 141/86 H Pulse Oximetry 93 Oxygen Flow Rate 0 Oxygen Delivery Method Room Air Oxygen Flow Rate 0 Narrative Exam Narrative: GEN: Pleasant elderly female, Alert and oriented x 3, tremors noted, NAD HEENT:NC, Face symmetric CHEST: Respiratory excursions symmetric, rales present bilaterally CV: RRR, no M/R/G ABD: Soft, NT/ND, BT present in all 4 quadrants, no organomegaly or masses EXTR: warm, well perfused, no C/C/E, left upper extremity contracture present SKIN: warm and dry, no rash NEURO: Alert and oriented x 3, very pleasant, patient does have food scattered across her bed, chest and neck secondary to her tremors Objective Labs 12/21/22 05:54 12/21/22 05:54 Labs: Laboratory Results - last 24 hr 12/20/22 12/20/22 12/21/22 03:59 10:20 05:54 WBC 6.2 RBC 4.21 Hgb 12.4 Hct 37.6 MCV 89.2 MCH 29.4 MCHC 33.0 RDW 14.7 Plt Count 198 Neut % (Auto) 54.9 D Lymph % (Auto) 29.5 [place] % (Auto) 11.0 Eos % (Auto) 4.1 H Baso % (Auto) 0.5 Neut # (Auto) 3400 Lymph # (Auto) 1800 [place] # (Auto) 700 Eos # (Auto) 300 Baso # (Auto) 0 Sodium Potassium Chloride Carbon Dioxide BUN Creatinine Estimated GFR BUN/Creatinine Ratio Glucose Calcium Total Bilirubin AST ALT Alkaline Phosphatase Total Creatine Kinase 4578 H D Troponin I 0.252 H* Total Protein Albumin Globulin Albumin/Globulin Ratio 12/21/22 12/21/22 05:54 05:54 WBC RBC Hgb Hct MCV MCH MCHC RDW Plt Count Neut % (Auto) Lymph % (Auto) [place] % (Auto) Eos % (Auto) Baso % (Auto) Neut # (Auto) Lymph # (Auto) [place] # (Auto) Eos # (Auto) Baso # (Auto) Sodium 134 L Potassium 4.2 Chloride 105 Carbon Dioxide 25 BUN 34 H Creatinine 1.32 H Estimated GFR 39 L BUN/Creatinine Ratio 25.8 H Glucose 110 Calcium 8.3 L Total Bilirubin 0.5 AST 81 H ALT 27 Alkaline Phosphatase 64 Total Creatine Kinase 2298 H D Troponin I Total Protein 6.5 Albumin 3.3 L Globulin 3.2 Albumin/Globulin Ratio 1.0 PFS Medical History (Updated 12/19/22 @ 21:45 by ROMEO Peralta) Chronic sciatica of right side CVA (cerebral vascular accident) Degenerative disc disease Essential hypertension History of CVA (cerebrovascular accident) History of non-ST elevation myocardial infarction (NSTEMI) Hyperlipidemia 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 Rhabdomyolysis secondary to lying on ground, improving Patient presented after prolonged downtime after a fall. She was thought to be down for at least 4 hours. Initial CPK was 2881. Is up to 4578 then downtrending to 2200. Creatinine has also increased from 1.09-1.76. AST has increased from 82-91. Patient is on low-flow IV fluids ending results on her cardiac function. Her last echo was 3 and half years ago at which time she had a normal ejection fraction of 65-70%. She was noted to have a relaxation abnormality of the left ventricle. Mild aortic stenosis was noted at that time. Will also hold her statin due to risk for myopathy in the setting of rhabdo. Giving dose of lasix due to rales on exam from excess IVF. 2. Acute metabolic encephalopathy in the setting of some degree of chronic cognitive impairment, resolving Patient is alert and oriented currently. She is able to tell me her history in significant detail. Family members are present. They are hoping she will be receptive to go to detention facility for a short period of time until they can arrange further caregiving. Patient is quite adamant that she is unwilling to consider that. She expresses that she wishes to return home with home health and her current caregiver and then adding additional caregiving as available. PT cleared for home. 3. JAGDEEP on CKD 3 Likely secondary to rhabdomyolysis. 4. Acute myocardial injury, likely secondary to demand ischemia Troponins have trended down. She is no active cardiac symptoms. Echocardiogram with EF 65-70%. 5. Leukocytosis, resolved No concern for infection. White blood cell count has improved from 15.1-12.1. Likely reactive related to her fall and injury/stress response 6. Hypothyroidism secondary to Eve's TSH is within normal range. Continue usual home medication. 7. Cerebrovascular disease with residual left-sided deficits Pending PT/OT evaluations. 8. Hyperlipidemia As noted above, holding statin therapy. Will resume it as soon as is safe to do so as her total cholesterol 214, LDL 137, HDL 57, triglycerides 101. 9. Chronic low back pain/sciatica Continue usual home medications once they can be reconciled. Family reports the medications will be confirmed this afternoon 10. Class 2 obesity BMI is 35.8. Would benefit from weight loss but her physical debility makes this difficult. 11. Hyponatremia Mild. Will follow. 12. Severe Echo notes peak velocity 4.1 m/s, gradient 45 and valve area 0.99. She meets criteria for valve replacement. Code status DNR DNI Prophylaxis Lovenox Disposition Home with on 12/22. Time Spent With Patient Critical Care time: I spent a total of [] minutes of critical care time on this patient's care today; this time is exclusive of procedural time.
[2022-12-21] MEDS: GABAPENTIN 100 MG CAPSULE PO ×3 (09:22→21:14)
[2022-12-21] MEDS: ENOXAPARIN 30 MG/0.3 ML SYRINGE SUBCUT (09:23)
--- NOTE | 2022-12-21 10:03 | PC.NURSE ---
Patient is a pleasant woman with hx of cva and contractured l. hand. She is alert and oriented x4. Patient is a 2person max assist to get up at this time. She told this RN that she has some tenderness on the back of her head from her fall. Given medication and she took them whole with water. Putting out yellow urine in the canister as patient is using a pure wick at 40mm of suction. Resting comfortably now.
--- NOTE | 2022-12-21 11:38 | OT.IP.EVAL ---
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 Lumbar spinal stenosis Osteopenia Osteopenia Stenosis of right carotid artery greater than 50% Surgical History (Last Reviewed 12/19/22 @ 21:58 by ROMEO Peralta) History of bilateral breast reduction surgery History of cataract extraction with lens replacement History of cholecystectomy History of hysterectomy Occupational Therapy Inpatient Evaluation/Re-Eval M1 PT/OT-IP Prior Functional Status Start: 12/20/22 08:35 Freq: NEEDED Status: Active Protocol: Document 12/20/22 10:14 AMB (Rec: 12/20/22 10:43 AMB [id number]) Medical Review Prior Functional Status Medical History Reviewed Yes Mobility and Gait Pt reports she has a walker and a home health aide, she does trip a lot Social History Household Members none Living Arrangements House Number of Floors (Floors) One Floor Home Equipment Front Wheel Walker Employment Status Retired Additional Social History Comment Pt has private pay aide that currently comes 3 days per week M1 PT/OT-IP Prior Functional Status Start: 12/21/22 12:19 Freq: NEEDED Status: Active Protocol: Document 12/21/22 12:19 [facility] (Rec: 12/21/22 12:42 [facility] [id number]) Medical Review Prior Functional Status Medical History Reviewed Yes Communication independent Mobility and Gait Pt reports she has a walker and a home health aide, she does trip a lot Activities of Daily Living and IADL's Pt states needs assist for showers, and IADl needs. Pt has a neighbor that has been assist her with money management needs for automatic payments and for assist to help set-up her medications. Pt states it takes her a long time to get dressed at times. Social History Household Members none Living Arrangements House Number of Floors (Floors) One Floor Home Environment Tub/Shower Home Equipment Front Wheel Walker,Straight Cane,Bedside Commode,Hand Held Shower,Grab Bars In Shower M2 OT-IP Current Condition Start: 12/21/22 12:19 Freq: Status: Active Protocol: Document 12/21/22 12:19 [facility] (Rec: 12/21/22 12:42 [facility] [id number]) Occupational Therapy Current Condition Current Condition Evaluation Date 12/21/22 Treatment Diagnosis GLF, encephalopathy, acute Rhabdomyolisis Diagnosis Onset Date 12/20/22 M3 OT- IP Subjective and Pain Start: 12/21/22 12:19 Freq: Status: Active Protocol: Document 12/21/22 12:19 [facility] (Rec: 12/21/22 12:42 [facility] [id number]) OT- Subjective Occupational Therapy Visit Type Type Initial Evaluation Visit Start Time 11:00 Visit Stop Time 11:38 Total Visit Minutes 38 Occupational Therapy Visit Comments Patient Comments Pt wanting to use the BSC. Patient/Caregiver Goals TO go home. OT Pain Assessment Pain When Pain Assessed At Rest Pain Present Pain Present Pain Reported M4 OT- IP ADL's Start: 12/21/22 12:19 Freq: Status: Active Protocol: Document 12/21/22 12:19 [facility] (Rec: 12/21/22 12:42 [facility] [id number]) OT ETC-Veiz-Gvtjana Comments OT Self-Feeding Comments Not at meal time. OT ADL-Grooming Comments OT Grooming Comments Not performed. OT ADL-Oral Care Comments Oral Care Comments NOt performed. OT ADL-Dressing General Eval Lower Body Dressing Ability Maximum Assistance Areas Needing Assistance Underpants/Brief,Socks Comments OT Dressing Comments Pt states at home has difficulty to do LB dressing and that it take her a long time to do on her own. Pt usually wears slip on shoes. OT ADL-Toileting General Evaluation Toileting Ability Moderate Assistance Areas Needing Assistance Manage Clothing Comments OT Toileting Comments Pt able to urinate on the BSC, Pt able to stand with CGA and able to wipe herself but needing assist for brief management needs in bed. OT ADL-Bathing Comments OT Bathing Comments NOt performed. M5 OT- IP IADL's Start: 12/21/22 12:19 Freq: Status: Active Protocol: Document 12/21/22 12:19 [facility] (Rec: 12/21/22 12:42 [facility] [id number]) OT-Instrumental Activities of Daily Living Deficits IADL Deficits Identified Deficits Home Safety Awareness Awareness of Need for Assistance at Home Good Awareness Medication Management Medication Management Caregiver Provides Supervision Money Management Money Management Caregiver Provides Supervision College Service Officer College Service Officer Caregiver Provides Assist M6 OT- IP Functional Cognition Start: 12/21/22 12:19 Freq: Status: Active Protocol: Document 12/21/22 12:19 [facility] (Rec: 12/21/22 12:42 [facility] [id number]) Cognitive Factors Limiting Selfcare Function Cognitive Ability Level of Alertness Alert Patient Orientation Name,Place,Situation Attention Span Ability Capable of Focused Attention, Capable of Sustained Attention Ability to Follow Commands Able to Follow One Step Commands Safety Awareness Underestimates Need for Assistance Cognitive Comments Cognitive Assessment Comments Pt very talkative and needing cues to stay on task. Pt tends to hold her right hand in the middle of the FWW versus on the handle on the FWW and therapist having to hold the FWW to keep the FWW balanced. Pt insists on going home and that she will have her aid come to stay with her if needed. OT- Vision and Hearing OT- Hearing Assessment OT- Hearing Assessment WFL OT- Vision Assessment Visual Acuity Glasses All The Time Vision Assessment Comments Pt states had cataracts done but still needing to get glasses but has not yet. M7 OT- IP Mobility and Balance Start: 12/21/22 12:19 Freq: Status: Active Protocol: Document 12/21/22 12:19 [facility] (Rec: 12/21/22 12:42 [facility] [id number]) OT- Bed Mobility Assessment Supine to Sit Supine to Sit Assist Contact Guard Assistance,Head of Bed Elevated,Bedrails Sit to Supine Sit to Supine Assist Minimal Assistance,1 Person Assistance Scooting Scooting to Edge of Bed Standby Assistance OT-Transfer Assessment Sit to and From Stand Sit to and from Stand Contact Guard Assistance Transfers Transfer Ability Minimal Assistance,1 Person Assistance Technique Transfer Destination Bed,Bedside Commode Transfer Technique Stand Step Pivot Devices Transfer Assistive Devices Gait Belt,Front Wheeled Walker Comments Mobility Comments CGA to help to stand to FWW from the bed. Assist to help guide the FWW as pt is insistent to hold the FWW with her right hand in the middle on the bar on th FWW versus right handle. CGA for pt's balance as well. OT- Balance Assessment Sitting Balance and Reactions Static Sitting Balance Ability Good Dynamic Sitting Balance Ability Fair Standing Balance and Reactions Static Standing Balance Ability Fair Dynamic Standing Balance Ability Poor M8 OT- IP Objective Assessments Start: 12/21/22 12:19 Freq: Status: Active Protocol: Document 12/21/22 12:19 [facility] (Rec: 12/21/22 12:42 [facility] [id number]) OT Gross Range of Motion Upper Extremity Range of Motion Assessment Left Impaired OT Strength Upper Extremity Strength Assessment Left Impaired Comments Strength Comments LUE able to move against gravity throughout, but at rest internal rotation with elbow,wrist and fingers flexed . Pt able to open her left hand enough to be able to hold the handle of the FWW with increased time. OT Sensation Assessment Comments Summary Comments Pt states decreased sensation for LEI. M9 OT- IP Assessment and Plan Start: 12/21/22 12:19 Freq: Status: Active Protocol: Document 12/21/22 12:19 [facility] (Rec: 12/21/22 12:42 [facility] [id number]) OT Summary Assessment and Plan Potential Rehabilitation Potential Good Analytic Complexity at Evaluation Moderate Summary OT Impairments Pain,Strength,Balance, Coordination,Functional Mobility,Self-Feeding,Grooming ,Dressing,Toileting,Bathing, Toilet Transfers,Shower Transfers,Activity Tolerance Progress Towards Goals Slow Progress due to Pain,Slow Progress due to Medical Issues,Slow Progress due to Activity Tolerance Assessment Summary Pt MOD complexity and main barriers are decreased balance , endurance, and now needing one person assist for ADL and mobility needs. Pt has prior history of CVA with left UE hemiparesis which also making it harder for pt to mobilize. Pt states prior moves slowly with FWW but able to manage most of her needs, but has neighbor to assist with money and medication needs.At this time pt will benefit from short skilled rehab versus home with 24/7 asisst. Goals Grooming Goal Independent Dressing Goal Independent Toileting Goal Independent Bathing Goal Moderate Assistance Toilet Transfer Goal Independent Shower Transfer Goal Contact Guard Assistance Days to Meet Goals 10 Frequency of Treatment Frequency Of Treatment Once a Day Treatment Plan OT Treatment Plan ADL Training,Functional Cognition Training,Functional Mobility,Patient/Family Education,Discharge Planning Other Treatment Recommendations and Next Standing at the sink for Treatment Focus grooming needs. Discharge Recommendations OT Discharge Recommendations SNF Rehab Other Discharge Recommendations Home if able to have 24/7 assist with home health not wanting to go to skilled rehab . Transportation Needs at Discharge Wheelchair/Cabulance
[2022-12-21 12:00] VITALS: BP 138/69; PULSE 85; RESP 22; TEMP 36.1; O2SAT 94
--- NOTE | 2022-12-21 12:25 | CM.DPC ---
Addendum entered by Yolanda Garrett R.N. 12/21/22 13:35: Sat and spoke with patient today, neighbor also at bedside. Discussed the possibility of short term skilled rehab, she is open to this idea. She would rather be here in town if possible. Her neighbor, Kalpana, who was in the room indicated that she can bring some food in for patient if she goes to [facility] facility, for the main reason that patient is reluctant to go is the food. [facility] at [facility] can accept on Wednesday, since her inpatient stay was as of the . Other facilities, [facility] and [facility] has also been contacted. Original Note: DCP Cont: Spoke to patient's niece, Michela Julien. Her number is [phone]. She has been in contact with Michela MEDINA. Her number is: [phone]. She suggested to go ahead and send out some referrals to [facility], just in case they can't arrange [facility] to increase hours. They are still trying to talk patient into going, as long as she knows it is short term. O.T. has mentioned that patient really wants to go home. Spoke to March at [facility] and she will review, and asked [employer] to fax referrals over to [facility], [facility] and [facility]. [facility] has been ordered, all has been sent to them, would just need DC Summary upon discharge. P: DCP to continue to follow. Plan is most likely going to be home with [facility], but back up plans are [facility], [facility], and both [facility]. Yolanda Garrett RN/[employer]
--- NOTE | 2022-12-21 12:36 | PT.IPTN ---
Current Diagnoses Rhabdomyolysis (12/20/22) Physical Therapy Treatment Note M2 PT-IP Current Condition Start: 12/20/22 08:35 Freq: NEEDED Status: Active Protocol: Document 12/20/22 10:14 AMB (Rec: 12/20/22 10:43 AMB [id number]) Physical Therapy Current Condition Current Condition Evaluation Date 12/20/22 Treatment Diagnosis GLF with encephalopathy, rhabdo, hx CVA with L neela Onset Date 12/19/22 M3 PT-IP Subjective Start: 12/20/22 08:35 Freq: NEEDED Status: Active Protocol: Document 12/21/22 12:36 AW (Rec: 12/21/22 12:49 AW [id number]) Subjective Physical Therapy Visit Type Type Treatment Note Visit Start Time 12:11 Visit Stop Time 12:36 Total Visit Minutes 25 Physical Therapy Visit Comments Patient Comments Pt is willing to participate with PT M4 PT-IP Mobility and Gait Start: 12/20/22 08:35 Freq: NEEDED Status: Active Protocol: Document 12/21/22 12:36 AW (Rec: 12/21/22 12:49 AW [id number]) PT-Bed Mobility Assessment Supine to Sit Supine to Sit Contact Guard Assistance,1 Person Assistance,Head of Bed Elevated,Bedrails Scooting Scooting to Edge of Bed Contact Guard Assistance PT-Transfer Assessment Sit to and From Stand Sit to and from Stand Contact Guard Assistance,Use of Upper Extremities Equipment Transfer Assistive Device Bed Rail,Gait Belt,Front Wheeled Walker Transfers Transfer Destination Chair Transfer Technique Stand Step Pivot Transfer Ability Level of Assist Contact Guard Assistance,Use of Upper Extremities Comments Mobility Comments Pt was lying in bed as PT arrived. She was willing to get up to the chair for lunch. Pt has adjustable bed at home and set her HOB incline to her preference today. She was able to sit up EOB CGA with increased time. She scooted herself forward until she felt her feet on the floor. She stood CGA and slowly placed her left hand on the walker before placing her right hand. Both hands were on the handles. Pt used FWW to ambulate 15 feet around the bed CGA. She tranferred to the chair CGA and was left there with lunch tray. Gait Assessment Gait Gait Assistance Required: Contact Guard Assist Distance (Feet) 15 Assistive Devices Assistive Device Gait Belt,Front Wheeled Walker Orthotic/Prosthetic Devices or Brace: No Gait Deviations General Gait Pattern Decreased Stride Length, Decreased Feet Clearance, Flexed Trunk Factors Limiting Gait Function Factors Limiting Gait Function Decreased Activity Tolerance, Decreased Strength,Poor Balance Comments Gait Comments Pt needed CGA for safety and cues for obstacle navigation. PT-Balance Assessment Sitting Balance and Reactions Static Sitting Balance Ability Good Dynamic Sitting Balance Ability Fair Standing Balance and Reactions Static Standing Balance Ability Fair Dynamic Standing Balance Ability Fair Device Used FWW M5 PT-IP Objective Assessments Start: 12/20/22 08:35 Freq: NEEDED Status: Active Protocol: Document 12/20/22 10:14 AMB (Rec: 12/20/22 10:43 AMB [id number]) Strength Upper Extremity Strength Assessment Left Impaired Lower Extremity Strength Assessment Left Impaired M6 PT-IP Treatment Start: 12/20/22 08:35 Freq: NEEDED Status: Active Protocol: Document 12/21/22 12:36 AW (Rec: 12/21/22 12:49 AW [id number]) Physical Therapy Treatment Education Education Provided Safety Other Treatments Other Treatment Performed Spent extra time counseling pt on discharge options including SNF rehab. M7 PT-IP Assessment and Plan Start: 12/20/22 08:35 Freq: NEEDED Status: Active Protocol: Document 12/21/22 12:36 AW (Rec: 12/21/22 12:49 AW [id number]) PT Summary Assessment and Plan Summary Impairments Strength,Balance,Sensation, Tone,Bed Mobility,Transfers, Gait,Activity Tolerance Progress Towards Goals Progressing Toward Goals,Slow Progress - Other Assessment Summary Michela improved her bed mobility today but needed CGA for transfers and gait with FWW. In the context of living alone with apparent deficits in safety awareness and left- sided weakness from remote CVA , pt would certainly benefit from SNF rehab to improve her strength, improve her mobility independence, and reduce her falls risk/risk for readmission. Pt had a bad experience at SNF previously but her neighbor is encouraging her to reconsider. Goals Bed Mobility Goal Minimal Assistance Transfer Goal Minimal Assistance,Front Wheeled Walker Gait Goal Minimal Assistance,Front Wheel Walker Gait Distance 50 Days to Meet Goals 7 Frequency of Treatment Frequency Of Treatment Once a Day Treatment Plan Physical Therapy Treatment Plan Bed Mobility Training,Transfer Training,Gait Training, Therapeutic Exercise,Balance Retraining,Neuromuscular Re-ed Recommendations To Nursing Amount of Assist Needed 1 Person Assist Discharge Recommendations PT Discharge Recommendations Home vs SNF Transportation Needs at Discharge Wheelchair/Cabulance
[2022-12-21 16:00] VITALS: BP 158/75; PULSE 90; RESP 20; TEMP 36.4; O2SAT 95
[2022-12-21] MEDS: FUROSEMIDE 40 MG/4 ML VIAL IV (16:32)
[2022-12-21 20:00] VITALS: BP 138/71; PULSE 91; RESP 19; TEMP 36.2; O2SAT 91
[2022-12-21] MEDS: SENNOSIDES 8.6 MG TABLET 17.2 MG PO (21:13)
[2022-12-22] VITALS: BP 126/63; PULSE 90; RESP 19; TEMP 36.5; O2SAT 93
[2022-12-22 04:20] VITALS: BP 125/79; PULSE 87; RESP 18; TEMP 36.3; O2SAT 97
[2022-12-22 05:37] LABS: BUN Creatinine Ratio 22.6 (6-22); Blood Urea Nitrogen 26 mg/dL (7-17); Calcium 8.5 mg/dL (8.4-10.2); Carbon Dioxide 26 mmol/L (22-32); Chloride 103 mmol/L (98-107); Estimated Glomerular Filt Rate 46 mL/min (>60); Glucose 112 mg/dL (80-110); HEMOLYSIS < 15 (0-50); Potassium 4.2 mmol/L (3.4-5.1); Sodium 133 mmol/L (137-145)
[2022-12-22 06:01] LABS: Creatine Kinase 4989 U/L (30-135)
[2022-12-22] MEDS: LEVOTHYROXINE 125 MCG TABLET PO (06:32)
[2022-12-22] MEDS: OXYCODONE IR 5 MG TABLET 10 MG PO ×4 (06:44→20:02)
[2022-12-22 08:00] VITALS: BP 143/80; PULSE 72; RESP 17; TEMP 35.7; O2SAT 94
[2022-12-22] MEDS: ENOXAPARIN 30 MG/0.3 ML SYRINGE SUBCUT (08:46)
[2022-12-22] MEDS: GABAPENTIN 100 MG CAPSULE PO ×3 (08:46→20:03)
--- NOTE | 2022-12-22 09:41 | OT.IP.TRT ---
Current Diagnoses Rhabdomyolysis (12/20/22) Occupational Therapy Treatment Note M2 OT-IP Current Condition Start: 12/21/22 12:19 Freq: Status: Active Protocol: Document 12/21/22 12:19 [facility] (Rec: 12/21/22 12:42 [facility] [id number]) Occupational Therapy Current Condition Current Condition Evaluation Date 12/21/22 Treatment Diagnosis GLF, encephalopathy, acute Rhabdomyolisis Diagnosis Onset Date 12/20/22 M3 OT- IP Subjective and Pain Start: 12/21/22 12:19 Freq: Status: Active Protocol: Document 12/22/22 09:17 [facility] (Rec: 12/22/22 10:32 [facility] [id number]) OT- Subjective Occupational Therapy Visit Type Type Treatment Note Visit Start Time 09:17 Visit Stop Time 09:41 Total Visit Minutes 24 Occupational Therapy Visit Comments Patient Comments Pt wanting to use the bathroom . Patient/Caregiver Goals TO go home. OT Pain Assessment Pain When Pain Assessed At Rest Pain Present Pain Present Denied Pain M4 OT- IP ADL's Start: 12/21/22 12:19 Freq: Status: Active Protocol: Document 12/22/22 09:17 [facility] (Rec: 12/22/22 10:32 [facility] [id number]) OT [id number] Comments OT Self-Feeding Comments set-up assist OT ADL-Grooming Comments OT Grooming Comments Not performed. OT ADL-Oral Care Comments Oral Care Comments NOt performed. OT ADL-Dressing General Eval Lower Body Dressing Ability Maximum Assistance Areas Needing Assistance Underpants/Brief,Socks Comments OT Dressing Comments Assist for tab brief and socks . pt just wears slip on shoes at home and boxer shorts. OT ADL-Toileting Comments OT Toileting Comments Pt able to get on the toilet on her own and then SUEDE BRUSHER able to take over as OT having to go to rounds. OT ADL-Bathing Comments OT Bathing Comments NOt performed. M5 OT- IP IADL's Start: 12/21/22 12:19 Freq: Status: Active Protocol: Document 12/21/22 12:19 [facility] (Rec: 12/21/22 12:42 [facility] [id number]) OT-Instrumental Activities of Daily Living Deficits IADL Deficits Identified Deficits Home Safety Awareness Awareness of Need for Assistance at Home Good Awareness Medication Management Medication Management Caregiver Provides Supervision Money Management Money Management Caregiver Provides Supervision [employer] Teacher [employer] Teacher Caregiver Provides Assist M6 OT- IP Functional Cognition Start: 12/21/22 12:19 Freq: Status: Active Protocol: Document 12/22/22 09:17 [facility] (Rec: 12/22/22 10:32 [facility] [id number]) Cognitive Factors Limiting Selfcare Function Cognitive Comments Cognitive Assessment Comments Pt having better safety awareness today for FWW use and transitions. Pt insistent on going home and that she will have someone stay with her as not wanting to go to skilled rehab. M7 OT- IP Mobility and Balance Start: 12/21/22 12:19 Freq: Status: Active Protocol: Document 12/22/22 09:17 [facility] (Rec: 12/22/22 10:32 [facility] [id number]) OT- Bed Mobility Assessment Supine to Sit Supine to Sit Assist Standby Assistance,Head of Bed Elevated,Bedrails OT-Transfer Assessment Sit to and From Stand Sit to and from Stand Standby Assistance,Contact Guard Assistance Transfers Transfer Ability Standby Assistance,Contact Guard Assistance Technique Transfer Destination Bed,Toilet Transfer Technique Stand Step Pivot Devices Transfer Assistive Devices Gait Belt,Front Wheeled Walker Comments Mobility Comments Able to simulate bed rail positioning at home and pt able to get up with increased time. Pt able to stand with SBA initially and then needing CGA as pt leaning posteriorly on her feet before able to get her feet in place. Pt able to walk with close SBA with occasional CGA for steadying with the FWW, especially for turns. OT- Balance Assessment Sitting Balance and Reactions Static Sitting Balance Ability Good Dynamic Sitting Balance Ability Fair Standing Balance and Reactions Static Standing Balance Ability Fair Dynamic Standing Balance Ability Fair Comments Other Balance Tests/Deviations/Treatment Pt still having posterior lean : initially when getting up to her feet and then able to correct herself in addition to CGA by therapist. M9 OT- IP Assessment and Plan Start: 12/21/22 12:19 Freq: Status: Active Protocol: Document 12/22/22 09:17 [facility] (Rec: 12/22/22 10:32 [facility] [id number]) OT Summary Assessment and Plan Potential Rehabilitation Potential Good Analytic Complexity at Evaluation Moderate Summary OT Impairments Pain,Strength,Balance, Coordination,Functional Mobility,Self-Feeding,Grooming ,Dressing,Toileting,Bathing, Toilet Transfers,Shower Transfers,Activity Tolerance Progress Towards Goals Progressing Toward Goals Assessment Summary Pt still a high fall risk and would greatly benefit from short rehab stay versus go home with 24/7 available assist and home health would be ideal as her set-up at home is more efficient for her. Pt states looking into getting someone to stay with her. Goals Grooming Goal Independent Dressing Goal Independent Toileting Goal Independent Bathing Goal Moderate Assistance Toilet Transfer Goal Independent Shower Transfer Goal Contact Guard Assistance Days to Meet Goals 7 Frequency of Treatment Frequency Of Treatment Once a Day Treatment Plan OT Treatment Plan ADL Training,Functional Cognition Training,Functional Mobility,Patient/Family Education,Discharge Planning Discharge Recommendations OT Discharge Recommendations Home with 24/7 Assist Available,Home Health,SNF Rehab,Home vs SNF Transportation Needs at Discharge Private Vehicle,Wheelchair/ Cabulance
--- NOTE | 2022-12-22 10:41 | CM.DPNOTE ---
DCP Note Requested by patient and HELEN Cloud to assist in discussing DCP for today Patient concerned about returning home today and SIGNAL WIRER Ai agrees, states patient is not able to tolerate the stairs today and wonders how patient will get into the house ? Discussed home vs SNF, patient would like to return home tomorrow w/family to assist. Patient asks that this CM team contact her friend Kalpana P [phone] to review DCP- Expect Kalpana will be able to assist in rearranging the caregiver schedule through [facility], coordinate with services and coordinate w/[facility] family to assist in transitioning patient home Discussed case with ASHOK Kate. No current DC order from Dr Valencia JW
--- NOTE | 2022-12-22 11:16 | PT.IPTN ---
Current Diagnoses Rhabdomyolysis (12/20/22) Physical Therapy Treatment Note M2 PT-IP Current Condition Start: 12/20/22 08:35 Freq: NEEDED Status: Active Protocol: Document 12/20/22 10:14 AMB (Rec: 12/20/22 10:43 AMB [id number]) Physical Therapy Current Condition Current Condition Evaluation Date 12/20/22 Treatment Diagnosis GLF with encephalopathy, rhabdo, hx CVA with L neela Onset Date 12/19/22 M3 PT-IP Subjective Start: 12/20/22 08:35 Freq: NEEDED Status: Active Protocol: Document 12/22/22 10:47 LJ (Rec: 12/22/22 11:16 LJ [id number]) Subjective Physical Therapy Visit Type Type Treatment Note Visit Start Time 09:40 Visit Stop Time 10:39 Total Visit Minutes 59 Notes OT with pt who is sitting on the toilet. Physical Therapy Visit Comments Patient Comments Pt is willing to participate with PT Patient Goals go home M4 PT-IP Mobility and Gait Start: 12/20/22 08:35 Freq: NEEDED Status: Active Protocol: Document 12/22/22 10:47 LJ (Rec: 12/22/22 11:16 LJ [id number]) PT-Transfer Assessment Sit to and From Stand Sit to and from Stand Contact Guard Assistance,Use of Upper Extremities Equipment Transfer Assistive Device Gait Belt,Front Wheeled Walker Transfers Transfer Destination Chair,Toilet,Wheelchair Transfer Technique ambulated Transfer Ability Level of Assist Contact Guard Assistance,Use of Upper Extremities Comments Mobility Comments Pt sitting on toilet upon arrival. OT finishing working with her. Pt used vertical grab bar in bathroom with both arms to hoist herself from toilet. Donald provided from this therapist. Pt then ambulated in room 30' then sat in chair using UEs to control descent. Entered room and informed pt that she would be going home today. She has 2 steps from the garage to enter the house. This therapist then retrieved a WC to take pt to stairs to trial. Pt ambulated to the WC 20' then wheeled to stairs. Pt CGA sit> stand from WC. Pt held rail and took a step to the foot of the stairs. MaxA and max cues for using strongest LE to step up. Pt used weaker LLE to take a step up despite cues to use stronger LE. Pt continued to use LLE despite further cueing. Heavy lean on railing which pt does not have at home. Upon descent pt instructed to step down onto weaker LE but pt had difficulty advancing LLE so continued stepping onto RLE. MaxA and heavy use of railing. Pt reached the bottom of the stairs and ambulated 2' to awaiting WC. CGA and cues to be in center of seat prior to sitting down. Pt taken back to room and she again ambulated from door to chair 20'. Pt CGA with cues to center bottom in middle of chair. Controlled descent. Pt was given all needs within reach. This therapist left room briefly to get water for pt. Returned and CM in room.Discussed importance of safety and the difficulty she had on the stairs. Recommended that pt arrange with family to stay with her 17/05 until she can arrange for a more permanent and frequent HH situation. This theraist fetched water for the pt and when returned to room CM was discussing DC situations. CM is aware of need to contact neighbor Gait Assessment Gait Gait Assistance Required: Contact Guard Assist Distance (Feet) 75 Assistive Devices Assistive Device Gait Belt,Front Wheeled Walker Orthotic/Prosthetic Devices or Brace: No Gait Deviations General Gait Pattern Decreased Stride Length, Decreased Feet Clearance, Flexed Trunk Factors Limiting Gait Function Factors Limiting Gait Function Decreased Activity Tolerance, Decreased Strength,Difficulty Following Directions, Incoordination,Limited Range of Motion,Poor Balance,Poor Safety Awareness Comments Gait Comments Pt ambulated several short distances for total of ~75'. Unsteady on her feet with LLE buckling on occasion and needing cues for proximity to FWW. See mobility section for additional recording. Stair Climbing Assessment Evaluation Level of Assist On Stairs Maximal Assistance,1 Person Assistance Devices Stair Climbing Assistive Devices Right Railing Technique/Endurance Stair Climbing Direction Ascend and Descend Stair Climbing Technique Step to Step Number of Steps Climbed 3 Stair Climbing Set # Repetitions (reps) 1 Comments Stair Climbing Comments Pt requiring MaxA with CGA on gait belt and strong reliance on therapist's arm and right rail. Difficulty advancing LLE to step down. Cues for using stronger RLE to lift and lower but pt not complying. Suggest simulate home situation with platform step for another trial prior to DC. M5 PT-IP Objective Assessments Start: 12/20/22 08:35 Freq: NEEDED Status: Active Protocol: Document 02/26/23 10:14 AMB (Rec: 12/20/22 10:43 AMB [id number]) Strength Upper Extremity Strength Assessment Left Impaired Lower Extremity Strength Assessment Left Impaired M6 PT-IP Treatment Start: 12/20/22 08:35 Freq: NEEDED Status: Active Protocol: Document 12/22/22 10:47 LJ (Rec: 12/22/22 11:16 LJ [id number]) Physical Therapy Treatment Education Education Provided Safety Other Treatments Other Treatment Performed Spent extra time counseling pt on discharge options including SNF rehab. M7 PT-IP Assessment and Plan Start: 12/20/22 08:35 Freq: NEEDED Status: Active Protocol: Document 12/22/22 10:47 LJ (Rec: 12/22/22 11:16 LJ [id number]) PT Summary Assessment and Plan Potential Rehabilitation Potential Fair Status of Condition at Evaluation Stable Summary Impairments Strength,Balance,Sensation, Tone,Bed Mobility,Transfers, Gait,Activity Tolerance Progress Towards Goals Progressing Toward Goals,Slow Progress due to Activity Tolerance,Slow Progress - Other Assessment Summary Pt has demonstrated meeting goals however not safely. Discussed importance of safety and the difficulty she had on the stairs. Recommended that pt arrange with family to stay with her 24/ until she can arrange for a more permanent and frequent HH situation. Pt has neighbor who helps her often. CM is aware of need to contact neighbor to assist pt with arrangements. Recommend short stay in SNF or 24/7 assist at home. Pt is unsafe to DC home with only occasional assist a three times a week from HH. Goals Bed Mobility Goal Minimal Assistance Transfer Goal Minimal Assistance,Front Wheeled Walker Gait Goal Minimal Assistance,Front Wheel Walker Gait Distance 50 Days to Meet Goals 7 Frequency of Treatment Frequency Of Treatment Once a Day Treatment Plan Physical Therapy Treatment Plan Bed Mobility Training,Transfer Training,Gait Training, Therapeutic Exercise,Balance Retraining,Neuromuscular Re-ed Recommendations To Nursing Amount of Assist Needed 1 Person Assist Discharge Recommendations PT Discharge Recommendations Home with Assistance,Home with 24/7 Assist Available,Home Health,SNF Rehab Transportation Needs at Discharge Wheelchair/Cabulance
[2022-12-22] MEDS: ACETAMINOPHEN 325 MG TABLET 650 MG PO ×2 (11:42→18:02)
[2022-12-22 11:44] VITALS: BP 120/59; PULSE 85; RESP 17; TEMP 36.2; O2SAT 94
--- NOTE | 2022-12-22 14:34 | CM.DPC ---
Addendum entered by Lavinia Hutchison R.N. 12/22/22 15:20: Pt has agreed to [facility] placement. Per March pt will be picked up at 11am in the morning. Pt is agreeable. Original Note: DCP: This CM spoke immensly and in length with this patient re. plan of care. Pt initially was reluctant to go to SNF due to having a bad experience in the past with a SNF in [place] Per this CM and PT conversation pt will benefit from further physical therapy for strengthening and endurance. Pt requested that this CM contact her friend Kalpana, main contact and ask her to come in and help her make a good decision. P: This CM contacted Kaplana per pt request who will come in this afternoon. This CM also spoke with pt;s family Michela who was in the room with pt permission re. plan of safe d/c plan. Family will speak with pt and will let this CM know the decision with regard to HH vs Snf. Lavinia Hutchison, equities analyst
[2022-12-22 16:00] VITALS: BP 137/65; PULSE 88; RESP 16; TEMP 36.2; O2SAT 92
[2022-12-22] MEDS: ONDANSETRON 4 MG/2 ML INJ IV (16:28)
--- NOTE | 2022-12-22 16:33 | P.PN_ITS ---
Subjective Subjective Date Patient Seen: 12/22/22 Interval history: PT/OT rec SNF and patient now willing to go. She has no complaints today. Cr down to 1.16. Exam Vital Signs (past 8 hours): - 12/22/22 11:44 Temperature 97.1 F L Pulse Rate 85 Respiratory Rate 17 Blood Pressure 120/59 L Pulse Oximetry 94 Oxygen Flow Rate 0 Oxygen Delivery Method Room Air Oxygen Flow Rate 0 Narrative Exam Narrative: GEN: Pleasant elderly female, Alert and oriented x 3, tremors noted, NAD HEENT:NC, Face symmetric CHEST: Respiratory excursions symmetric, rales present bilaterally CV: RRR, no M/R/G ABD: Soft, NT/ND, BT present in all 4 quadrants, no organomegaly or masses EXTR: warm, well perfused, no C/C/E, left upper extremity contracture present SKIN: warm and dry, no rash NEURO: Alert and oriented x 3, very pleasant, patient does have food scattered across her bed, chest and neck secondary to her tremors Objective Labs 12/21/22 05:54 12/22/22 05:09 Labs: Laboratory Results - last 24 hr 12/22/22 12/22/22 05:09 05:09 Sodium 133 L Potassium 4.2 Chloride 103 Carbon Dioxide 26 BUN 26 H Creatinine 1.15 H Estimated GFR 46 L BUN/Creatinine Ratio 22.6 H Glucose 112 H Calcium 8.5 Total Creatine Kinase 4989 H [facility] Medical History (Updated 12/19/22 @ 21:45 by ROMEO Peralta) Chronic sciatica of right side CVA (cerebral vascular accident) Degenerative disc disease Essential hypertension History of CVA (cerebrovascular accident) History of non-ST elevation myocardial infarction (NSTEMI) Hyperlipidemia 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 Rhabdomyolysis secondary to lying on ground, improving Patient presented after prolonged downtime after a fall. She was thought to be down for at least 4 hours. Initial CPK was 2881. Is up to 4578 then downtrending to 2200. Creatinine has also increased from 1.09-1.76. AST has increased from 82-91. Her last echo was 3 and half years ago at which time she had a normal ejection fraction of 65-70%. She was noted to have a relaxation abnormality of the left ventricle. Mild aortic stenosis was noted at that time. Will also hold her statin due to risk for myopathy in the setting of rhabdo. Giving dose of lasix due to rales on exam from excess IVF. Now net negative. Cr improved to 1.16. 2. Acute metabolic encephalopathy in the setting of some degree of chronic cognitive impairment, resolving Patient is alert and oriented currently. She is able to tell me her history in significant detail. Family members are present. They are hoping she will be receptive to go to residential facility for a short period of time until they can arrange further caregiving. Patient is quite adamant that she is unwil ling to consider that. She expresses that she wishes to return home with home health and her current caregiver and then adding additional caregiving as available. PT rec SNF and family has convinced patient to go. 3. JAGDEEP on CKD 3 Likely secondary to rhabdomyolysis. Improving and Cr near baseline. 4. Acute myocardial injury, likely secondary to demand ischemia Troponins have trended down. She is no active cardiac symptoms. Echocardiogram 12/19 with EF 65-70%. 5. Leukocytosis, resolved No concern for infection. White blood cell count has improved from 15.1-6.2. Likely reactive related to her fall and injury/stress response 6. Hypothyroidism secondary to Eve's TSH is within normal range. Continue usual home medication. 7. Cerebrovascular disease with residual left-sided deficits 8. Hyperlipidemia As noted above, holding statin therapy. Will resume it as soon as is safe to do so as her total cholesterol 214, LDL 137, HDL 57, triglycerides 101. 9. Chronic low back pain/sciatica Continue usual home medications once they can be reconciled. Family reports the medications will be confirmed this afternoon 10. Class 2 obesity BMI is 35.8. Would benefit from weight loss but her physical debility makes this difficult. 11. Hyponatremia Mild. Will follow. 12. Severe Echo notes peak velocity 4.1 m/s, gradient 45 and valve area 0.99. She meets criteria for valve replacement. However at her age will likely not qualify. Code status DNR DNI Prophylaxis Lovenox Disposition SNF on . Time Spent With Patient Critical Care time: I spent a total of [] minutes of critical care time on this patient's care today; this time is exclusive of procedural time.
[2022-12-22 20:00] VITALS: BP 137/63; PULSE 88; RESP 20; TEMP 36.5; O2SAT 93
[2022-12-22] MEDS: SENNOSIDES 8.6 MG TABLET 17.2 MG PO (20:03)
[2022-12-23] VITALS: BP 145/67; PULSE 81; RESP 21; TEMP 36.3; O2SAT 94
[2022-12-23] MEDS: OXYCODONE IR 5 MG TABLET 10 MG PO ×3 (02:23→12:22)
[2022-12-23 04:00] VITALS: BP 130/82; PULSE 98; TEMP 36.6; O2SAT 97
[2022-12-23 06:06] LABS: BUN Creatinine Ratio 21.1 (6-22); Blood Urea Nitrogen 27 mg/dL (7-17); Calcium 8.9 mg/dL (8.4-10.2); Carbon Dioxide 29 mmol/L (22-32); Chloride 100 mmol/L (98-107); Estimated Glomerular Filt Rate 41 mL/min (>60); Glucose 120 mg/dL (80-110); HEMOLYSIS < 15 (0-50); Potassium 4.2 mmol/L (3.4-5.1); Sodium 135 mmol/L (137-145)
[2022-12-23] MEDS: LEVOTHYROXINE 125 MCG TABLET PO (06:57)
--- NOTE | 2022-12-23 07:36 | PM.DS.1 ---
History of Present Illness History of Present Illness Date Patient Seen: 12/23/22 Time Patient Seen: 07:36 Chief complaint: GLF, down 4 hrs Narrative: Per admitting provider, Michela Cao is a belkis 87-year-old female with a history NSTEMI, CVA x2 w/left-sided deficit, TIA, thyroid nodule/ Eve's hypothyroidism, HTN, right carotid stenosis, chronic right sciatica, HLD who presented to the ED after falling down in her garage she believes she hit her head, remained on the floor until found by a friend, presented complaining of worsening back pain from her baseline, time down unknown. ?Patient denies any neck pain.? No chest pain or shortness of breath.? She denies any nausea or vomiting.? No dizziness.? No loss of consciousness.? She denies any new bladder or bowel incontinence but states she has some baseline urinary incontinence.? The patient is pleasantly confused she is orientated to self and place and intermittently recalls events, but believes she has been here for several days, and repeats statements and questions numerous times. Becomes easily confused and disorientated. It has been reported to the staff from her niece that she has had gradual memory loss progressing over the years but this is an acute worsening of her symptoms. Unable to obtain accurate HPI, ROS, medication reconciliation or history due to acute encephalopathy on chronic cognitive impairment. Patient does report that she frequently falls at home inside on the carpet which aren't really fall, she does have a walker and has a home health aide that comes in 3 days a week. Patient's left arm is significantly contracted with muscle wasting, intention tremor noted. On admit patient denies chest pain, shortness in breath, headache, acute changes in vision, difficulty swallowing, speech impairment, numbness, tingling, LOC, fever, body aches, chills, cough, recent exposure to illness, abdominal pain, nausea, vomiting, urinaryretention, dysuria, frequency, urgency, hematuria, bowel changes, constipation, melena, rashes, recent changes to medication, illness. Admit temp 98.1?, 150/85, 93, 20, 95%. WBC 15.5 newt 13,100 H&H 16.3/49.7, BUN 25 creatinine 1.09, GFR 49 (2021 labs creatinine 1.06-1.36, GFR 36.9-29.2), glucose 145, AST 82, ALT 44, CK 2881, CK-MB 16, BNP 40-50, total protein 9.5, globin 4.7, ETOH negative, COVID negative, initial troponin 0.439, repeat 0.435-EKG I personally reviewed sinus rhythm with a first-degree AV block with a rate of 90 without acute changes. I personally reviewed all imaging head CT negative for acute intracranial changes, old right MCA infarct, lumbar CT negative for acute changes noted disc disease L4-L5 severe canal stenosis, hip x-ray negative, chest x-ray noted cardiomegaly, moderate vascular congestion. Patient's urine bacteria moderate no culture was completed. Patient admitted for ground level fall, head injury, rhabdomyolysis, myocardial injury, encephalopathy. Discharge Providers Provider Date of admission: 12/20/22 09:55 Discharge Date: 12/23/22 Primary care physician: Idalia Bashir MD Consults: 12/19/22 21:19 Consult to Discharge Planning Routine Comment: Consult to Occupational Therapy Evaluate & Treat Comment: [facility] Physician Instructions: Evaluate and treat Consult to Physical Therapy Evaluate & Treat Comment: [facility] Physician Instructions: Evaluate and Treat 12/20/22 15:32 Consult to Home Health Routine Comment: Reason For Exam: Home Health RN, P.T, O.T, bath aide. Discharge provider: Jose Cruz Hamilton DO Summary Hospital Course Discharge Diagnosis: 1. Rhabdomyolysis secondary to lying on ground, improving 2. Acute metabolic encephalopathy in the setting of some degree of chronic cognitive impairment, resolving 3. JAGDEEP on CKD 3 4. Acute myocardial injury, likely secondary to demand 5. Leukocytosis, resolved 6. 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 Cerebrovascular disease with residual left-sided deficits 8. Hyperlipidemia 9. Chronic low back pain/sciatica 10. Class 2 obesity 11.? Hyponatremia, resolved 12. Severe Hospital Course: This is an 87-year-old female with a past medical history of hypothyroidism, severe aortic stenosis, CKD stage 3, prior CVA, hyperlipidemia, back pain that presented to the hospital after prolonged downtime due to a fall. She was thought to be down for at least 4 hours. Initial CK was greater than 2000 and slightly up trended but then gradually improved after initiation of IV fluids. As result of the rhabdomyolysis she also had a mild JAGDEEP that improved with fluids. She also had an metabolic encephalopathy that also improved with fluids, no infectious etiologies were found. She needed significant assistance from physical therapy, and was recommended for skilled rehab, and though she initially refused with repeated evaluation she was convinced that this would be a good idea. There are changes were made to her chronic medications. She was prescribed opaites for chronic pain, though with time her need for opaites should hopefully decline. Time Spent with Patient Time spent: Greater than 30 minutes Exam Vital Signs (past 8 hours): - 12/23/22 00:00 12/23/22 04:00 Temperature 97.4 F L 97.8 F Pulse Rate 81 98 H Respiratory Rate 21 Blood Pressure 145/67 H 130/82 Pulse Oximetry 94 97 Oxygen Flow Rate 0 0 Oxygen Delivery Method Room Air Oxygen Flow Rate 0 Narrative Exam Narrative: GEN: Pleasant elderly female, Alert and oriented x 3, tremors noted, NAD HEENT:NC, Face symmetric CHEST: Respiratory excursions symmetric, rales present bilaterally CV: RRR, no M/R/G ABD: Soft, NT/ND, BT present in all 4 quadrants, no organomegaly or masses EXTR: warm, well perfused, no C/C/E, left upper extremity contracture present SKIN: warm and dry, no rash NEURO: Alert and oriented x 3, very pleasant, patient does have food scattered across her bed, chest and neck secondary to her tremors Objective Labs 12/21/22 05:54 12/23/22 04:36 Labs: Laboratory Results - last 24 hr 12/23/22 04:36 Sodium 135 L Potassium 4.2 Chloride 100 Carbon Dioxide 29 BUN 27 H Creatinine 1.28 H Estimated GFR 41 L BUN/Creatinine Ratio 21.1 Glucose 120 H Calcium 8.9 PFSH Medical History (Updated 12/19/22 @ 21:45 by MICHOACANO Peralta-KOBI) Chronic sciatica of right side CVA (cerebral vascular accident) Degenerative disc disease Essential hypertension History of CVA (cerebrovascular accident) History of non-ST elevation myocardial infarction (NSTEMI) Hyperlipidemia 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 Lumbar spinal stenosis Osteopenia Osteopenia Stenosis of right carotid artery greater than 50% Surgical History History of bilateral breast reduction surgery History of cataract extraction with lens replacement History of cholecystectomy History of hysterectomy Family History Other Adopted (not a blood relative) Social History household members: none Smoking Status: Never smoker alcohol intake: current Discharge Plan Discharge Plan Patient Disposition: SNF Transfer to: [facility] Discharge orders & Medications Prescriptions: New acetaminophen 325 mg Tablet 650 mg PO Q6H PRN (Reason: Fever/Mild Pain (1-3)) 30 Days Qty: 30 0RF levothyroxine [Synthroid] 125 mcg Tablet 125 mcg PO DAILY@0600 30 Days Qty: 30 0RF sennosides [senna] 8.6 mg Tablet 17.2 mg PO BEDTIME 14 Days Qty: 28 0RF oxycodone 5 mg Tablet 10 mg PO Q4HR PRN (Reason: Pain, Moderate (4-10) 7 Days Qty: 20 0RF Continued aspirin-dipyridamole 25-200 mg capsule, ER multiphase 12 hr 1 cap PO BID Patient Comments: TK 1 C PO BID FOR STROKE RISK REDUCTION gabapentin 100 mg capsule 100 mg PO TID Patient Comments: need sig clarified. 05/24/19 oxybutynin chloride 5 mg tablet 5 mg PO BID rosuvastatin 40 mg tablet 40 mg PO DAILY Discontinued levothyroxine 175 mcg tablet 125 mcg PO DAILY Follow up/Referrals: Idalia Bashir MD [Primary Care Provider] - Discharge Health Status Precautions: [place] Diet/Activity/Treatments Diet: Diet as Tolerated Liquid consistency: Normal/Thin Food texture: Regular Activity: As tolerated [facility] Reason for rehabilitation: Recovery r/t decondition Rehab type: Physical therapy and Occupational therapy Visit Report/Discharge Packet Stand Alone Forms: Patient Portal/API Discharge Data Primary Care Provider: Idalia Bashir
[2022-12-23 08:00] VITALS: BP 131/63; PULSE 86; RESP 17; TEMP 36.4; O2SAT 91
[2022-12-23] MEDS: GABAPENTIN 100 MG CAPSULE PO ×2 (08:17→13:00)
[2022-12-23] MEDS: ENOXAPARIN 30 MG/0.3 ML SYRINGE SUBCUT (08:17)
[2022-12-23] MEDS: DOCUSATE 100 MG CAPSULE PO (08:17)
[2022-12-23] MEDS: polyethylene glycoL 3350 17 GM POWD.PACK PO (08:17)
--- NOTE | 2022-12-23 08:40 | CM.DPC ---
DCP Discharge SNF Per MD, pt is medically stable to d/c to SNF today and no identified barriers to discharge. TERESO called [facility] and confirmed they can still accept with transport around 1300 and need updated COVID swab. TERESO updated sash repairer, [employer], and RN who will kindly get updated COVID swab and update pt. SW provided number to call report. TERESO faxed PASRR, signed med list, script, PASRR and orders to [facility] to review and awaiting updated COVID swab. Plan: Patient to d/c to [facility] today via facility van around 1300 before safe return home alone with local supports. ASH Jara
[2022-12-23 09:04] LABS: COVID19 -Nasal RAPID Negative (Negative)
[2022-12-23] MEDS: ACETAMINOPHEN 325 MG TABLET 650 MG PO (11:21)
[2022-12-23 12:00] VITALS: BP 98/49; PULSE 79; RESP 17; TEMP 36.2; O2SAT 95
== END 2022-12-23 13:21 | DRG 557 ==
LOC: ED 11:54 → AC 16:51
PROVIDERS: Internal Medicine; Nurse Practitioner Family; Student in an Organized Health Care Education/Training Program; Admitting Provider Family Medicine; Emergency Provider Emergency Medicine; PCP Internal Medicine; Referring Provider Emergency Medicine; Visit Provider Family Medicine
DX: M62.82 Rhabdomyolysis (principal); G93.41 Metabolic encephalopathy; I24.8 Other forms of acute ischemic heart disease; N17.9 Acute kidney failure, unspecified; I5A Non-ischemic myocardial injury (non-traumatic); S09.90XA Unspecified injury of head, initial encounter; W18.30XA Fall on same level, unspecified, initial encounter; R26.81 Unsteadiness on feet; E06.3 Autoimmune thyroiditis; E78.5 Hyperlipidemia, unspecified; M54.41 Lumbago with sciatica, right side; G89.29 Other chronic pain; E66.9 Obesity, unspecified; N18.32 Chronic kidney disease, stage 3b; I69.998 Other sequelae following unspecified cerebrovascular disease; Z20.822 Contact with and (suspected) exposure to COVID-19; Z68.35 Body mass index [BMI] 35.0-35.9, adult; Z66 Do not resuscitate; Z91.81 History of falling
CPT/HCPCS: 36415; 70450; 70548; 70553; 71045; 72131; 73502; 80048; 80053; 80061; 80320; 81003; 81015; 82550; 82553; 83036; 83605; 83690; 83735; 83880; 84145; 84443; 84484; 85025; 85610; 85730; 87040; 87086; 87635; 93005; 93306; 93880; 96374; 97116; 97161; 97166; 97530; 97535; 99284; C9803; G0378; J1650; J1940; J2405

== ENCOUNTER 2023-01-09 00:53 | Emergency (ER) | payer MEDICARE, OTHER, SELFPAY ==
[2022-12-19 19:00] VITALS: BMI 35.7
[2023-01-09] VITALS (8 sets, daily range): BP systolic 132–151; BP diastolic 62–96; PULSE 76–94; RESP 18; TEMP 36.8; O2SAT 90–97; BMI 37.2
--- NOTE | 2023-01-09 01:06 | DI.RAD.S_ITS ---
PROCEDURE: XR ABDOMEN MIN 2V INDICATIONS: constipation TECHNIQUE: 2 views of the abdomen were acquired. COMPARISON: None. FINDINGS: Surgical changes and devices: Surgical clips in the right upper quadrant Bowel: No pneumoperitoneum. The bowel gas pattern is normal. Moderate stool volume. Soft tissues: No masses; visualized solid organ contours appear normal in size. No suspicious abdominal calcifications. Bones: No suspicious bony abnormalities. IMPRESSION: Moderate to large stool volume without evidence of obstruction. Dictated by: Julius Portillo M.D. on 01/09/2023 at 8:26 Approved by: Julius Portillo M.D. on 01/09/2023 at 8:27
[2023-01-09 01:18] LABS: Add Manual Diff / Slide Review NO; Basophils Absolute Auto 0 /uL (0-100); Basophils Percent Auto 0.4 % (0-2); Eosinophils Absolute Auto 300 /uL (0-450); Eosinophils Percent Auto 5.3 % (2-4); Hematocrit 40.9 % (36-46); Hemoglobin 13.6 g/dL (12.0-16.0); Lymphocytes Absolute Auto 2400 /uL (1100-4500); Lymphocytes Percent Auto 38.4 % (25-40); Mean Corpuscular HGB Conc 33.4 % (30-36); Mean Corpuscular Hemoglobin 29.6 PG (26-34); Mean Corpuscular Volume 88.8 fL (80-100); Monocytes Absolute Auto 600 /uL (0-900); Monocytes Percent Auto 10.2 % (3-14); Neutrophils Absolute Auto 2800 /uL (1500-7000); Neutrophils Percent Auto 45.7 % (50-75); Platelet Count 236 X10^3/uL (150-400); Red Cell Distribution Width 14.6 % (11.6-14.8); White Blood Cell Count 6.2 X10^3/uL (4.5-11.0)
[2023-01-09 01:28] LABS: Alanine Aminotransferase 19 IU/L (<35); Albumin 4.3 g/dL (3.5-5.0); Albumin Globulin Ratio 1.1 (1.0-2.8); Alkaline Phosphatase 83 U/L (38-126); Aspartate Aminotransferase 29 IU/L (14-36); BUN Creatinine Ratio 13.3 (6-22); Bilirubin Total 0.5 mg/dL (0.2-1.3); Blood Urea Nitrogen 16 mg/dL (7-17); Carbon Dioxide 28 mmol/L (22-32); Chloride 103 mmol/L (98-107); Estimated Glomerular Filt Rate 44 mL/min (>60); Globulin 3.8 g/dL (1.7-4.1); Glucose 106 mg/dL (80-110); HEMOLYSIS < 15 (0-50); Lipase 74 U/L (23-300); Potassium 4.7 mmol/L (3.4-5.1); Sodium 137 mmol/L (137-145); Total Protein 8.1 g/dL (6.3-8.2)
--- NOTE | 2023-01-09 02:52 | ED_ITS ---
HPI - Abdominal Pain General Chief Complaint: Abdominal Pain Stated Complaint: ABD Time Seen by Provider: 01/09/23 00:54 Source: patient and EMS Mode of arrival: EMS History of Present Illness HPI narrative: 87-year-old female nonsmoker with history of lumbar stenosis, degenerative disc disease, hyperlipidemia, hypothyroidism and hospitalization about 1 month ago due to rhabdomyolysis related to fall with subsequent troponin release thought to be related to demand has been taking pain medications and multiple stool softeners has a chief complaint of decreased bowel movements for least 1 week and right-sided abdominal pain. She is passing gas. She states her pain is worse when she moves and improves with rest. It is largely in the right and she denies any radiation of the pain. She is not dizzy nor weak or lightheaded. She occasionally has nausea but denies any vomiting. She denies any chest pain, shortness of breath or notable fatigue. Related Data Home Medications Medication Instructions Recorded Confirmed aspirin 25 mg-dipyridamole 200 mg 1 cap PO BID 05/24/19 05/24/19 capsule,ext.release 12 hr multiphase gabapentin 100 mg capsule 100 mg PO TID 05/24/19 05/24/19 oxybutynin chloride 5 mg tablet 5 mg PO BID 05/24/19 05/24/19 rosuvastatin 40 mg tablet 40 mg PO DAILY 05/24/19 05/24/19 Previous Rx's Medication Instructions Recorded acetaminophen 325 mg tablet 650 mg PO Q6H PRN Fever/Mild Pain 12/23/22 (1-3) 30 days #30 tabs levothyroxine 125 mcg tablet 125 mcg PO DAILY@0600 30 days #30 12/23/22 (Synthroid) tabs Allergies Allergy/AdvReac Type Severity Reaction Status Date / Time No Known Drug Allergies Allergy Verified 01/31/21 11:35 Review of Systems Review of Systems Narrative: GENERAL: Denies chills, fatigue, malaise, fever, sweats. HEENT: Denies sinus pain, ear pain, sore throat, difficulty swallowing, dizziness. RESPIRATORY: Denies dyspnea, cough, wheezing, hemoptysis, sputum. CARDIOVASCULAR: Denies chest pain, palpitations, orthopnea, edema, GASTROINTESTINAL: See HPI : Denies dysuria, frequency, incontinence, hematuria, urinary retention. MUSCULOSKELETAL: denies weakness, joint pain, or bony pain SKIN: Denies rash, skin lesions, or other NEUROLOGIC: Denies weakness, headache, numbness, change in speech, confusion, seizures, incoordination. PSYCHIATRIC: No concerning psychosocial issues. 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 Lumbar spinal stenosis Osteopenia Osteopenia Stenosis of right carotid artery greater than 50% Surgical History History of bilateral breast reduction surgery History of cataract extraction with lens replacement History of cholecystectomy History of hysterectomy Family History Other Adopted (not a blood relative) Social History household members: none Smoking Status: Never smoker alcohol intake: current Smoking Status: Never smoker alcohol intake frequency: holidays/special occasions only Substance Use Type: marijuana Exam Narrative Exam Narrative: GENERAL: [87] year old patient appears stated age. Well-developed patient, in mild distress. HEAD: Atraumatic. Normocephalic. EYES: Pupils equal round and reactive. Extraocular motions intact. No scleral icterus. No injection or drainage. ENT: Nose without bleeding, purulent drainage. Throat without erythema, tonsillar hypertrophy or exudate. Airway patent. NECK: Trachea midline. Non tender CARDIOVASCULAR: Regular rate and rhythm without murmurs, gallops, or rubs. RESPIRATORY: Clear to auscultation. Breath sounds equal bilaterally. No wheezes, rales, or rhonchi. GASTROINTESTINAL: Abdomen soft, severe right-sided abdominal pain, nondistended. RECTAL: no fecal impaction. Performed with patient permission and female nursing outside plant technician at the bedside EXTREMITIES: No edema or joint tenderness. BACK: Nontender without deformity or crepitance. No flank tenderness. NEURO: AOx3. SKIN: No rash or erythema of visible areas Initial Vital Signs Initial Vital Signs: Vital Signs Pulse Rate 94 H 01/09/23 00:58 Pulse Oximetry 96 01/09/23 00:58 Course Orders Ordered: Discontinued Medications Hydrocodone Bitart/Acetaminophen (Hydrocodone/Acet 10/325 Tablet) 1 tab PO NOW ONE Stop: 01/09/23 03:20 Last Admin: 01/09/23 03:22 Dose: Not Given Documented By: LISA Bisacodyl (Bisacodyl 10 Mg Supp) 10 mg MS NOW ONE Stop: 01/09/23 04:37 Last Admin: 01/09/23 04:46 Dose: 10 mg Documented By: LISBETH Mineral Oil (Mineral Oil 1 Each Enema) 1 each MS NOW ONE Stop: 01/09/23 06:45 Last Admin: 01/09/23 06:45 Dose: 1 each Documented By: GC Sodium Biphosphate/Sodium Phosphate (Fleets Enema) 1 each MS NOW ONE Stop: 01/09/23 06:31 Vital Signs Vital signs: Vital Signs - 8 hr 01/09/23 00:59 01/09/23 00:58 01/09/23 00:59 Temperature 98.3 F Pulse Rate 94 H 94 H Respiratory Rate 18 Blood Pressure 151/96 H 151/96 H Pulse Oximetry 96 96 Oxygen Delivery Method Room Air 01/09/23 00:59 01/09/23 01:00 01/09/23 01:30 Temperature Pulse Rate 83 84 84 Respiratory Rate Blood Pressure Pulse Oximetry 90 L 96 93 Oxygen Delivery Method 01/09/23 02:00 01/09/23 02:30 01/09/23 03:00 Temperature Pulse Rate 94 H 76 77 Respiratory Rate Blood Pressure Pulse Oximetry 95 93 91 Oxygen Delivery Method MDM - Abdominal Pain Lab Data 01/09/23 01:05 01/09/23 01:05 Labs: Lab Results 01/09/23 01/09/23 01/09/23 Range/Units 01:05 01:05 04:05 WBC 6.2 (4.5-11.0) X10^3/uL RBC 4.60 (4.0-5.2) X10^6/uL Hgb 13.6 (12.0-16.0) g/dL Hct 40.9 (36-46) % MCV 88.8 (80-100) fL MCH 29.6 (26-34) PG MCHC 33.4 (30-36) % RDW 14.6 (11.6-14.8) % Plt Count 236 (150-400) X10^3/uL Neut % (Auto) 45.7 L (50-75) % Lymph % (Auto) 38.4 (25-40) % Chase % (Auto) 10.2 (3-14) % Eos % (Auto) 5.3 H (2-4) % Baso % (Auto) 0.4 (0-2) % Neut # (Auto) 2800 (7709-2188) /uL Lymph # (Auto) 2400 (9995-6969) /uL Chase # (Auto) 600 (0-900) /uL Eos # (Auto) 300 (0-450) /uL Baso # (Auto) 0 (0-100) /uL Sodium 137 (137-145) mmol/L Potassium 4.7 (3.4-5.1) mmol/L Chloride 103 (98-107) mmol/L Carbon Dioxide 28 (22-32) mmol/L BUN 16 (7-17) mg/dL Creatinine 1.20 H (0.52-1.04) mg/dL Estimated GFR 44 L (>60) mL/min BUN/Creatinine Ratio 13.3 (6-22) Glucose 106 (80-110) mg/dL Calcium 9.0 (8.4-10.2) mg/dL Total Bilirubin 0.5 (0.2-1.3) mg/dL AST 29 (14-36) IU/L ALT 19 (<35) IU/L Alkaline Phosphatase 83 (38-126) U/L Total Protein 8.1 (6.3-8.2) g/dL Albumin 4.3 (3.5-5.0) g/dL Globulin 3.8 (1.7-4.1) g/dL Albumin/Globulin Ratio 1.1 (1.0-2.8) Lipase 74 (23-300) U/L Urine RBC 0-1/hpf (0-5/HPF) Urine WBC 0-1/hpf (0-5/HPF) Ur Squamous Epith Cells 0-1 /hpf (0-5/HPF) Urine Bacteria Occasional (0-1) (None) Point of care testing: Urine Dip Bedside Urine Glucose Negative Bedside Urine Bilirubin - Negative Bedside Urine Ketone - Negative Urine Specific Vian 1.015 Bedside Urine Occult Blood - Negative Bedside Urine pH 6 Bedside Urine Protein +/- 15 Bedside Urine Urobilinogen 1+ 2mg Bedside Urine Nitrite - Negative Bedside Urine Leukocytes - Negative Esterase MDM Narrative Medical decision making narrative: CC: 87-year-old female with worsening right-sided abdominal pain and decreased bowel movements Complicating co-morbidities: Age, pain medication use, thyroid disease Data collected from: Patient Medical records reviewed: Prior notes reviewed in our EMR Differential considered, but not limited to: Bowel obstruction, constipation, ileus versus other Exam documented above, pertinent findings include: Heart rate regular, lungs clear and nonlabored, abdomen is soft, tender in the right abdomen, bowel sounds present, decreased on the right abdomen, rectal without stool in the vault Lab Test results independently reviewed as above. Pertinent findings: No leukocytosis, left shift, anemia, electrolyte abnormality. Creatinine slightly elevated though normal for her. LFTs, bilirubin and lipase within normal Independently reviewed EKG as above Imaging studies independently reviewed: X-ray without obstructive findings, CT of abdomen and pelvis with moderate retained fecal material and: Treatments: Fleets, dulcolax suppository Re-evaluations: Patient has had small amounts of stool, however no large passage. She is feeling better Discussion: Patient with right-sided abdominal pain and decreased bowel movements while on opioids. She has reassuring exam, labs and imaging suggest no severe intra-abdominal pathology. Patient given Dulcolax suppository and enema with some minimal relief. Symptoms have improved, no indication for furt her evaluation or hospitalization. Patient given extensive bedside discussion and instructions about steps to take to help get her bowels moving at home. Disposition: see below, along with detailed discharge instructions that have been reviewed with patient as well as indications for ED re-evaluation and additional outpatient follow up Discharge Plan Departure Patient Disposition: Home Clinical Impression: Constipation by delayed colonic transit Instructions: DI for Constipation Activity Restrictions/Additional Instructions: *You have been diagnosed with [ abdominal pain due to constipation ] *What to do: *Take over the counter medications as directed: 1. Metamucil - is a bulk forming laxative and adds fiber 2. Colace - softens your stool 3. Dulcolax suppository - stimulates your bowels *Follow up with your primary care provider in 2-3 days, call for appointment *Return to ER if you should have any new, worsening or concerning symptoms *Drink plenty of water and eat foods high in fiber *Stay as active as you can as this helps move your bowels as well Prescriptions: No Action aspirin-dipyridamole 25-200 mg capsule, ER multiphase 12 hr 1 cap PO BID Patient Comments: TK 1 C PO BID FOR STROKE RISK REDUCTION gabapentin 100 mg capsule 100 mg PO TID Patient Comments: need sig clarified. 05/24/19 oxybutynin chloride 5 mg tablet 5 mg PO BID rosuvastatin 40 mg tablet 40 mg PO DAILY acetaminophen 325 mg Tablet 650 mg PO Q6H PRN (Reason: Fever/Mild Pain (1-3)) 30 Days Qty: 30 0RF levothyroxine [Synthroid] 125 mcg Tablet 125 mcg PO DAILY@0600 30 Days Qty: 30 0RF Referrals: Idalia Bashir MD [Primary Care Provider] - Stand Alone Forms: Patient Portal/API
--- NOTE | 2023-01-09 02:55 | DI.CT.S_ITS ---
PROCEDURE: CT ABDOMEN PELVIS without CON INDICATIONS: abdominal pain, SBO vs. other TECHNIQUE: 5 mm thick images acquired from the diaphragm to the symphysis pubis. For radiation dose reduction, the following was used: automated exposure control, adjustment of mA and/or kV according to patient size. COMPARISON: None. FINDINGS: Image quality: Excellent. Lung bases: Lung bases are clear. Heart size is normal. Severe coronary calcifications. Large hiatal hernia. Urinary system: Both kidneys are normal in size. Bladder wall thickness is normal. Solid organs: Liver is normal in size and enhancement. Gallbladder is surgically absent. Biliary system is non dilated. Pancreas has normal appearance. Spleen is normal in size. No adrenal nodules. Peritoneum and bowel: Bowel loops demonstrate normal wall thickness and caliber. No free fluid or air. Mild to moderate stool volume. Scattered colonic diverticula without evidence of acute diverticulitis. Nodes and vessels: No retroperitoneal or mesenteric adenopathy by size criteria. Aorta and inferior vena cava are normal in size. Atherosclerotic disease of the aorta and major branches. Abdominal wall: No ventral hernias. Pelvis: No pathologic free pelvic fluid. No inguinal hernias or adenopathy. Bones: No suspicious bony lesions. No vertebral body compression fractures. Grade 2 anterolisthesis of L3 on L4. IMPRESSION: [id number] stool volume. Colonic diverticula without evidence of acute diverticulitis. Severe coronary artery calcifications. Large hiatal hernia. Dictated by: Julius Portillo M.D. on 01/09/2023 at 8:36 Approved by: Julius Portillo M.D. on 01/09/2023 at 8:42
[2023-01-09 04:37] LABS: Bacteria Urine Occasional (0-1); RBC Urine 0-1/HPF (0-5/HPF); Squamous Epithelial Cell Urine 0-1 /HPF (0-5/HPF); WBC Urine 0-1/HPF (0-5/HPF)
[2023-01-09] MEDS: BISACODYL 10 MG SUPP PR (04:46)
[2023-01-09] MEDS: MINERAL OIL 1 EACH ENEMA PR (06:45)
--- NOTE | 2023-01-09 09:42 | PC.NURSE ---
assisted pt. with putting on personal clothes. pt. was sitting on bedside commode, offered to assist to wheelchair, applied warming blanket to legs, and handed call light. pt. requested apple juice and prefers to sit in wheelchair while they wait for their ride.
== END 2023-01-09 10:23 | disposition home or self-care (01) ==
PROVIDERS: Emergency Provider Emergency Medicine; PCP Internal Medicine
DX: K59.01 Slow transit constipation (principal)
CPT/HCPCS: 36415; 74019; 74177; 80053; 81003; 81015; 83690; 85025; 87086; 99284; Q9967

== ENCOUNTER → 2023-01-19 15:24 | Outpatient (CLI) | payer MEDICARE, OTHER, SELFPAY ==
[2022-12-19 19:00] VITALS: BMI 35.7
--- NOTE | 2023-01-19 | DI.RAD.S_ITS ---
PROCEDURE: XR CHEST 2V INDICATIONS: unspecified cough TECHNIQUE: 2 views of the chest were acquired. COMPARISON: [facility], CR, XR CHEST 1V, 12/19/2022, 11:52. FINDINGS: Surgical changes and devices: None. Lungs and pleura: There is cephalization of the lung vessels and moderate vascular congestion is again noted similar prior examination with interstitial opacities bilaterally. No focal lung consolidation. No pleural effusion or pneumothorax. Mediastinum: Mediastinal contours are normal. Heart size is enlarged. Hiatal hernia. Bones and chest wall: No suspicious bony abnormalities. Soft tissues appear unremarkable. IMPRESSION: 1. Cardiomegaly and moderate vascular congestion which appears similar prior examination dated 12/19/2022. Dictated by: Alexis Ayoub RRA Interpreted: Momo Chawla MD on 01/19/2023 at 15:52 Transcribed by: JESSICA on 01/19/2023 at 15:53 Approved by: Momo Chawla M.D. on 01/19/2023 at 17:16
== END ==
PROVIDERS: PCP Internal Medicine; Referring Provider Internal Medicine; Visit Provider Internal Medicine
DX: I51.7 Cardiomegaly (principal); R05.9 Cough, unspecified; R09.89 Other specified symptoms and signs involving the circulatory and respiratory systems
CPT/HCPCS: 71046

== ENCOUNTER 2023-03-23 13:32 | Emergency (ER) | payer MEDICARE, OTHER, SELFPAY ==
[2022-12-19 19:00] VITALS: BMI 35.7
[2023-03-23] VITALS (12 sets, daily range): BP systolic 118–163; BP diastolic 56–72; PULSE 72–87; RESP 16–26; TEMP 36.6; O2SAT 95–97; BMI 36.1
--- NOTE | 2023-03-23 14:52 | DI.CT.S_ITS ---
PROCEDURE: CT HEAD/BRAIN WO CON INDICATIONS: headache TECHNIQUE: Noncontrast 4.5 mm thick angled axial sections acquired from the foramen magnum to the vertex, with coronal and sagittal reformats. For radiation dose reduction, the following was used: automated exposure control, adjustment of mA and/or kV according to patient size. COMPARISON: [facility], CT, CT HEAD/BRAIN WO CON, 12/19/2022, 14:50. FINDINGS: Image quality: Excellent. CSF spaces: Basal cisterns are patent. No extra-axial fluid collections. Ventricles are normal in size and shape. Brain: Right MCA territory encephalomalacia and gliosis remains unchanged from the prior exam. Moderate cerebral and cerebellar volume loss with multifocal white matter chronic ischemic change noted. Atherosclerotic calcification noted associated with cavernous segments of both internal carotid and intradural vertebral arteries. Skull and face: Calvarium and visualized facial bones are intact, without suspicious lesions. Incidental hyperostosis frontalis interna noted. Sinuses: Right sphenoid sinus mucosal thickening IMPRESSION: Old right MCA territory infarct. No acute hemorrhage or mass effect. No change from the prior exam Approved by: Dereje Crowell M.D. on 03/23/2023 at 14:13
[2023-03-23] MEDS: IBUPROFEN 400 MG TABLET 800 MG PO (15:06)
[2023-03-23] MEDS: CYCLOBENZAPRINE 10 MG TABLET PO (15:06)
[2023-03-23] MEDS: ACETAMINOPHEN 325 MG TABLET 975 MG PO (15:07)
--- NOTE | 2023-03-23 15:48 | ED_ITS ---
HPI - Back Pain/Injury <Herman Juan PA-C - Last Filed: 03/23/23 18:34> General Chief Complaint: Back Pain/Injury Stated Complaint: Back Pain Time Seen by Provider: 03/23/23 14:03 Source: patient and EMS History of Present Illness HPI Narrative: 87-year-old female, osteopenia, hyperlipidemia, hypothyroidism, TIA presents to the ED with 2 days of lower back pain radiating down to the right leg. Patient is also complaining of a headache. Patient states that she has a chronic sciatica problem, that it flared up yesterday, she was unable to get out of the bed due to the pain, it caused her to lose bladder control. Patient confirms th at she did have the urge to urinate and that she only lost control since she was unable to get to the toilet. Patient denies numbness, tingling, weakness, saddle paresthesias. Patient denies taking any medications for the pain. Patient is also complaining of a raging headache, states that it is more severe than her usual headaches. Patient denies fever, chills, chest pain, shortness of breath, lightheadedness, dizziness, syncope. Related Data Home Medications Medication Instructions Recorded Confirmed oxybutynin chloride 5 mg tablet 5 mg PO BID 05/24/19 03/27/23 rosuvastatin 40 mg tablet 40 mg PO BEDTIME 05/24/19 03/27/23 clopidogrel 75 mg tablet 75 mg PO DAILY 03/27/23 03/27/23 gabapentin 300 mg capsule See Rx Instructions .Route .COMPLEX 03/27/23 03/27/23 Previous Rx's Medication Instructions Recorded tramadol 50 mg tablet 50 mg PO Q8H PRN pain #20 tabs 03/23/23 Allergies Allergy/AdvReac Type Severity Reaction Status Date / Time No Known Drug Allergies Allergy Verified 03/27/23 11:01 Review of Systems <Herman Juan PA-C - Last Filed: 03/23/23 18:34> Review of Systems ROS Unobtainable: All systems reviewed & are unremarkable except as noted in HPI and below Constitutional Constitutional: Denies chills, Denies fatigue, Denies fever(s), Denies frequent falls, Reports headache(s), Denies lethargy and Denies weakness Eyes Eyes: Denies change in vision, Denies eye discharge, Denies irritation and Denies loss of vision ENT Ears, Nose, Mouth, and Throat: Denies change in voice, Denies dizziness, Reports headache(s), Denies neck pain, Denies sore throat and Denies throat swelling Cardiovascular Cardiovascular: Denies chest pain, Denies irregular heart rhythm, Denies lightheadedness, Denies palpitations, Denies dyspnea, Denies dyspnea on exertion and Denies orthopnea Respiratory Respiratory: Denies cough, Denies dyspnea, Denies dyspnea on exertion and Denies wheezing Gastrointestinal Gastrointestinal: Denies abdominal pain, Denies change in bowel habits, Denies diarrhea, Denies nausea and Denies vomiting Genitourinary Genitourinary: Denies hematuria, Denies flank pain, Denies urinary incontinence and Denies urinary urgency Musculoskeletal Musculoskeletal: Reports back pain, Denies muscle weakness, Denies neck pain, Denies numbness and Denies tingling Integumentary/Breasts Skin/Breast: Denies pruritus, Denies erythema, Denies rash and Denies wounds Neurologic Neurologic: Denies behavioral changes, Denies confusion, Denies dizziness, Denies frequent falls, Reports headache(s), Denies loss of vision, Denies numbness, Denies tingling and Denies weakness Psychiatric Psychiatric: Denies anxiety, Denies behavioral changes, Denies confusion, Denies depression, Denies homicidal ideation and Denies suicidal ideation Endocrine Endocrine: Denies fatigue, Denies flushing and Denies palpitations Hematologic/Lymphatic Hematologic/Lymphatic: Denies easy bruising Allergic/Immunologic Allergic/Immunologic: Denies urticaria, Denies throat swelling and Denies wheezing Patient History <Herman Juan PA-C - Last Filed: 03/23/23 18:34> Medical History Chronic sciatica of right side CVA (cerebral vascular accident) Degenerative disc disease Essential hypertension History of CVA (cerebrovascular accident) History of non-ST elevation myocardial infarction (NSTEMI) Hyperlipidemia 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 Lumbar spinal stenosis Osteopenia Osteopenia Stenosis of right carotid artery greater than 50% Surgical History History of bilateral breast reduction surgery History of cataract extraction with lens replacement History of cholecystectomy History of hysterectomy Family History Other Adopted (not a blood relative) Social History household members: none Smoking Status: Former smoker alcohol intake: current Smoking Status: Never smoker alcohol intake frequency: holidays/special occasions only Substance Use Type: marijuana Exam <Herman Juan PA-C - Last Filed: 03/23/23 18:34> Narrative Exam Narrative: Const General:?cooperative, healthy appearing and comfortable [facility] Head:?normal to inspection Ears:?hearing grossly normal bilaterally Nose:?external nose normal Face and sinus:?normal facial exam and sinuses nontender Mouth:?oral mucosae normal Throat:?posterior oropharynx normal Eyes General:?appearance normal, both eyes and all related structures Neck Neck:?normal visual inspection and no lymphadenopathy noted Resp Effort & Inspection:?normal respiratory effort Auscultation:?clear to auscultation bilaterally Cardio Rate:?regular rate Rhythm:?regular rhythm Musculoskeletal There is no midline tenderness to palpation. There is no paraspinal tenderness to palpation. There is full range of motion. Strength and sensation is intact. Patient is neurovascularly intact. Neuro General:?patient alert, patient awake and patient oriented x3; PERRLA; CN through 12 intact bilaterally Initial Vital Signs Initial Vital Signs: Vital Signs Temperature 97.8 F 03/23/23 13:39 Pulse Rate 84 03/23/23 13:39 Respiratory Rate 19 03/23/23 13:39 Blood Pressure 163/72 H 03/23/23 13:39 Pulse Oximetry 95 03/23/23 13:39 Oxygen Delivery Method Room Air 03/23/23 13:39 <Julius Camilo MD - Last Filed: 03/29/23 14:36> Initial Vital Signs Initial Vital Signs: Vital Signs Temperature 97.8 F 03/23/23 13:39 Pulse Rate 84 03/23/23 13:39 Respiratory Rate 19 03/23/23 13:39 Blood Pressure 163/72 H 03/23/23 13:39 Pulse Oximetry 95 03/23/23 13:39 Oxygen Delivery Method Room Air 03/23/23 13:39 Course <Herman Juan PA-C - Last Filed: 03/23/23 18:34> Orders Ordered: Discontinued Medications Acetaminophen (Acetaminophen 325 Mg Tablet) 975 mg PO NOW ONE Stop: 03/23/23 14:53 Last Admin: 03/23/23 15:07 Dose: 975 mg Documented By: THANH Cyclobenzaprine HCl (Cyclobenzaprine 10 Mg Tablet) 10 mg PO NOW ONE Stop: 03/23/23 14:53 Last Admin: 03/23/23 15:06 Dose: 10 mg Documented By: THANH Diphenhydramine HCl (Diphenhydramine 50 Mg/Ml Vial) 50 mg IV NOW ONE Stop: 03/23/23 16:49 Last Admin: 03/23/23 17:25 Dose: Not Given Documented By: MISTY Diphenhydramine HCl (Diphenhydramine 50 Mg/Ml Vial) 25 mg IV NOW ONE Stop: 03/23/23 16:53 Last Admin: 03/23/23 17:24 Dose: 25 mg Documented By: MISTY Sodium Chloride (Normal Saline 0.9%) 1,000 mls @ 1,000 mls/hr IV BOLUS ONE Stop: 03/23/23 17:47 Last Infusion: 03/23/23 19:01 Dose: 0 mls/hr Documented By: MISTY(2) Admin: 03/23/23 17:24 Dose: 1,000 mls/hr Documented By: MISTY Ibuprofen (Ibuprofen 400 Mg Tablet) 800 mg PO NOW ONE Stop: 03/23/23 14:53 Last Admin: 03/23/23 15:06 Dose: 800 mg Documented By: THANH Metoclopramide HCl (Metoclopramide 10 Mg/2 Ml Inj) 10 mg IV NOW ONE Stop: 03/23/23 16:49 Last Admin: 03/23/23 17:23 Dose: 10 mg Documented By: MISTY Morphine Sulfate (Morphine 4 Mg/Ml Inj) 4 mg IV NOW ONE Stop: 03/23/23 16:52 Last Admin: 03/23/23 17:24 Dose: 4 mg Documented By: MISTY Vital Signs Vital signs: Vital Signs - 8 hr 03/23/23 13:39 Temperature 97.8 F Pulse Rate 84 Respiratory Rate 19 Blood Pressure 163/72 H Pulse Oximetry 95 Oxygen Delivery Method Room Air <Julius Camilo MD - Last Filed: 03/29/23 14:36> Orders Ordered: Discontinued Medications Acetaminophen (Acetaminophen 325 Mg Tablet) 975 mg PO NOW ONE Stop: 03/23/23 14:53 Last Admin: 03/23/23 15:07 Dose: 975 mg Documented By: THANH Cyclobenzaprine HCl (Cyclobenzaprine 10 Mg Tablet) 10 mg PO NOW ONE Stop: 03/23/23 14:53 Last Admin: 03/23/23 15:06 Dose: 10 mg Documented By: THANH Diphenhydramine HCl (Diphenhydramine 50 Mg/Ml Vial) 50 mg IV NOW ONE Stop: 03/23/23 16:49 Last Admin: 03/23/23 17:25 Dose: Not Given Documented By: MISTY Diphenhydramine HCl (Diphenhydramine 50 Mg/Ml Vial) 25 mg IV NOW ONE Stop: 03/23/23 16:53 Last Admin: 03/23/23 17:24 Dose: 25 mg Documented By: MISTY Sodium Chloride (Normal Saline 0.9%) 1,000 mls @ 1,000 mls/hr IV BOLUS ONE Stop: 03/23/23 17:47 Last Infusion: 03/23/23 19:01 Dose: 0 mls/hr Documented By: MISTY(2) Admin: 03/23/23 17:24 Dose: 1,000 mls/hr Documented By: MISTY Ibuprofen (Ibuprofen 400 Mg Tablet) 800 mg PO NOW ONE Stop: 03/23/23 14:53 Last Admin: 03/23/23 15:06 Dose: 800 mg Documented By: THANH Metoclopramide HCl (Metoclopramide 10 Mg/2 Ml Inj) 10 mg IV NOW ONE Stop: 03/23/23 16:49 Last Admin: 03/23/23 17:23 Dose: 10 mg Documented By: MISTY Morphine Sulfate (Morphine 4 Mg/Ml Inj) 4 mg IV NOW ONE Stop: 03/23/23 16:52 Last Admin: 03/23/23 17:24 Dose: 4 mg Documented By: MISTY Vital Signs Vital signs: Vital Signs - 8 hr 03/23/23 13:39 Temperature 97.8 F Pulse Rate 84 Respiratory Rate 19 Blood Pressure 163/72 H Pulse Oximetry 95 Oxygen Delivery Method Room Air MDM - Back Pain/Injury <Herman Juan PA-C - Last Filed: 03/23/23 18:34> Lab Data Labs: Urine Dip Bedside Urine Glucose Negative Bedside Urine Bilirubin - Negative Bedside Urine Ketone - Negative Urine Specific [place] 1.010 Bedside Urine Occult Blood - Negative Bedside Urine pH 7.0 Bedside Urine Protein - Negative Bedside Urine Urobilinogen - Negative Bedside Urine Nitrite - Negative Bedside Urine Leukocytes - Negative Esterase MDM Narrative Medical decision making narrative: 87-year-old female, osteopenia, hyperlipidemia, hypothyroidism, TIA presents to the ED with 2 days of lower back pain radiating down to the right leg. Given that patient has a different than usual headache, will obtain CT head. Physical exam is otherwise reassuring, patient's back pain is likely due to a flare-up of the sciatica. Will give Tylenol and ibuprofen, Flexeril for the symptoms. Will reassess. Gave patient has some IV fluids, Reglan, Benadryl, morphine for further pain control. Pain was adequately controlled with the medications. Patient was able to ambulate with a walker from the bed to the bathroom and back. Will discharge patient home with a prescription for tramadol to use for breakthrough pain. Recommend ibuprofen for pain control. Recommend adequate hydration. Recommend follow-up with PCP as soon as possible. ED return precautions discussed with patient. Patient verbalized understanding. Medical records reviewed: Yes <Julius Camilo MD - Last Filed: 03/29/23 14:36> Lab Data Labs: Urine Dip Bedside Urine Glucose Negative Bedside Urine Bilirubin - Negative Bedside Urine Ketone - Negative Urine Specific [place] 1.010 Bedside Urine Occult Blood - Negative Bedside Urine pH 7.0 Bedside Urine Protein - Negative Bedside Urine Urobilinogen - Negative Bedside Urine Nitrite - Negative Bedside Urine Leukocytes - Negative Esterase Discharge Plan Departure Patient Disposition: Home Clinical Impression: Back pain, Headache Instructions: DI for Headache, DI for Back Spasm Activity Restrictions/Additional Instructions: You were evaluated in the ED today for lower back pain and headache. You were given medications that improved your symptoms. You may take 800 mg of ibuprofen 3 times a day with food for the back pain and headache. You may take tramadol if the ibuprofen is not providing adequate relief. Please follow-up with your primary care provider as soon as possible. Return to the ED if you experience any numbness, tingling, weakness. Prescriptions: New tramadol 50 mg tablet 50 mg PO Q8H PRN (Reason: pain) Qty: 20 0RF No Action oxybutynin chloride 5 mg tablet 5 mg PO BID rosuvastatin 40 mg tablet 40 mg PO BEDTIME clopidogrel 75 mg tablet 75 mg PO DAILY gabapentin 300 mg capsule See Rx Instructions .ROUTE .COMPLEX Rx Instructions: Take one 300 mg capsule in AM, Take one 300 mg capsule at Noon, Take two 300 mg capsules at HS Referrals: Idalia Bashir MD [Primary Care Provider] - Stand Alone Forms: Patient Portal/API <Julius Camilo MD - Last Filed: 03/29/23 14:36> Cosign ED Attending Cosignature Attestation: I was immediately available in the department for consultation. ?This documentation has been reviewed and I agree with assessment and plan. Supervised by Julius Camilo MD
[2023-03-23] MEDS: METOCLOPRAMIDE 10 MG/2 ML INJ IV (17:23)
[2023-03-23] MEDS: MORPHINE 4 MG/ML INJ IV (17:24)
[2023-03-23] MEDS: SODIUM CHLORIDE 0.9% 1,000 ML 1000 ML IV (17:24)
[2023-03-23] MEDS: diphenhydrAMINE 50 MG/ML VIAL 25 MG IV (17:24)
--- NOTE | 2023-03-23 18:42 | PC.NURSE ---
Patient has received pain medications, and was able to sit up at bedside and transfer to commode with a walker. Patient then was able to ambulate about 200feet to the bathroom and back. Patient states she feels a lot better and is glad to be standing. Pt agrees with the plan to discharge home with pain medications provided.
== END 2023-03-23 18:50 | disposition home or self-care (01) ==
PROVIDERS: Emergency Provider Student in an Organized Health Care Education/Training Program; PCP Internal Medicine
DX: M54.50 Low back pain, unspecified (principal); R51.9 Headache, unspecified
CPT/HCPCS: 36415; 70450; 81003; 96374; 96375; 96376; 99284; J1200; J2270; J2765

== ENCOUNTER 2023-03-27 10:54 | Observation (INO) | payer MEDICARE, OTHER, SELFPAY ==
[2022-12-19 19:00] VITALS: BMI 35.7
[2023-03-27] VITALS (26 sets, daily range): BP systolic 131–176; BP diastolic 61–93; PULSE 49–77; RESP 11–24; TEMP 36.2; O2SAT 95–100; BMI 38.0
--- NOTE | 2023-03-27 11:01 | DI.RAD.S_ITS ---
PROCEDURE: XR RIBS RT MIN 3V W CXR 1V INDICATIONS: fall pain TECHNIQUE: 2 views of the right ribs were acquired, along with a single view chest. COMPARISON: [facility], CR, XR CHEST 2V, 01/19/2023, 15:44. FINDINGS: Surgical changes and devices: None. Overlying EKG wires. Bones and chest wall: No displaced rib fractures within limits of this exam. No suspicious bony lesions. Overlying soft tissues appear unremarkable. Postsurgical changes of cholecystectomy. Lungs and pleura: No pleural effusions or pneumothorax. Low lung volumes causing prominence of the bronchovascular markings. Mediastinum: Mediastinal contours appear normal. Heart size is normal. Vascular calcifications within the aortic arch. IMPRESSION: No acute abnormality identified. Dictated by: Alfie Carranza D.O. on 03/27/2023 at 11:12 Approved by: Alfie Carranza D.O. on 03/27/2023 at 11:15
--- NOTE | 2023-03-27 11:13 | ED.FALL ---
HPI - Fall General Chief Complaint: Fall Stated Complaint: fall, right shoulder pain Time Seen by Provider: 03/27/23 10:59 Source: patient and EMS Mode of arrival: EMS History of Present Illness HPI Narrative: Patient is a 87-year-old female history of osteopenia, hyperlipidemia, hypothyroid, TIA presenting today with weakness and ground level fall along with right-sided rib pain. She apparently was here and evaluated on 03/23/2023 for back pain. She has chronic ongoing back pain thought to be a flare. She reports this morning she was getting up to use the restroom she has significant urinary incontinence when she fell. Now complaining of right-sided rib pain. Denies hitting her head or loss of consciousness. No nausea vomiting. Denies any blood thinners but does seem to be taking Aggrenox. Pain is worse with movement and palpation on the right ribs. Related Data Home Medications Medication Instructions Recorded Confirmed aspirin 25 mg-dipyridamole 200 mg 1 cap PO BID 05/24/19 05/24/19 capsule,ext.release 12 hr multiphase gabapentin 100 mg capsule 100 mg PO TID 05/24/19 05/24/19 oxybutynin chloride 5 mg tablet 5 mg PO BID 05/24/19 05/24/19 rosuvastatin 40 mg tablet 40 mg PO DAILY 05/24/19 05/24/19 Previous Rx's Medication Instructions Recorded tramadol 50 mg tablet 50 mg PO Q8H PRN pain #20 tabs 03/23/23 Allergies Allergy/AdvReac Type Severity Reaction Status Date / Time No Known Drug Allergies Allergy Verified 03/27/23 11:01 Review of Systems Review of Systems ROS Unobtainable: All systems reviewed & are unremarkable except as noted in HPI and below Patient History Medical History Chronic sciatica of right side CVA (cerebral vascular accident) Degenerative disc disease Essential hypertension History of CVA (cerebrovascular accident) History of non-ST elevation myocardial infarction (NSTEMI) Hyperlipidemia 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 Lumbar spinal stenosis Osteopenia Osteopenia Stenosis of right carotid artery greater than 50% Surgical History History of bilateral breast reduction surgery History of cataract extraction with lens replacement History of cholecystectomy History of hysterectomy Family History Other Adopted (not a blood relative) Social History household members: none Smoking Status: Never smoker alcohol intake: current Smoking Status: Never smoker alcohol intake frequency: holidays/special occasions only Substance Use Type: marijuana Exam Initial Vital Signs Initial Vital Signs: Vital Signs Temperature 97.1 F L 03/27/23 10:59 Pulse Rate 67 03/27/23 10:59 Respiratory Rate 18 03/27/23 10:59 Blood Pressure 156/93 H 03/27/23 10:59 Pulse Oximetry 98 03/27/23 10:59 Oxygen Delivery Method Room Air 03/27/23 10:59 GENERAL: Alert 87-year-old female and in no acute distress. HEENT: Head atraumatic,EOMI, pupils reactive, face symmetric, moist mucous membranes CARDIOVASCULAR: Regular rate and rhythm without murmurs, rubs or gallops. RESPIRATORY: Breath sounds equal bilaterally, no wheezes rales or rhonchi. Tender right ribs 8- 9 area no paradoxical movement no contusion no erythema no laceration ABDOMEN: Soft, nontender. Normoactive bowel sounds all 4 quadrants. No guarding or rebound. EXTREMITIES: Normal range of motion, no clubbing or edema. Neurovascularly intact NEUROLOGICAL: Alert and oriented x4. SKIN: Warm, dry, no laceration, no petechiae, no rashes or lesions. Course Orders Ordered: ED Orders 03/27/23 11:01 XR ribs RT min 3V w CXR1V Stat 03/27/23 11:30 Complete Blood Count AUTO DIFF Stat Comprehensive Metabolic Panel Stat Lipase Stat Troponin & CK Cardiac Panel Stat 03/27/23 12:21 EKG-12 Lead Stat 03/27/23 13:03 Urinalysis and Microscopic Stat 03/27/23 15:44 CT chest wo con Stat Discontinued Medications Hydromorphone HCl (Hydromorphone 1 Mg Inj) 1 mg IV NOW ONE Stop: 03/27/23 15:45 Last Admin: 03/27/23 15:53 Dose: 1 mg Documented By: AT Ketorolac Tromethamine (Ketorolac 30 Mg/Ml Vial) 15 mg IV NOW ONE Stop: 03/27/23 15:45 Last Admin: 03/27/23 15:52 Dose: 15 mg Documented By: AT Morphine Sulfate (Morphine 2 Mg/Ml Inj) 2 mg IV NOW ONE Stop: 03/27/23 11:04 Last Admin: 03/27/23 12:30 Dose: 2 mg Documented By: AT Vital Signs Vital signs: Vital Signs - 8 hr 03/27/23 11:18 03/27/23 11:30 03/27/23 11:31 Pulse Rate 61 60 58 L Respiratory Rate 20 16 14 Blood Pressure Pulse Oximetry 98 99 100 Oxygen Delivery Method 03/27/23 11:31 03/27/23 11:59 03/27/23 11:59 Pulse Rate 49 L Respiratory Rate 11 L Blood Pressure 145/63 H 137/64 Pulse Oximetry 99 Oxygen Delivery Method 03/27/23 12:00 03/27/23 12:00 03/27/23 12:30 Pulse Rate 51 L Respiratory Rate 11 L Blood Pressure 131/61 136/63 Pulse Oximetry 99 Oxygen Delivery Method 03/27/23 12:30 03/27/23 13:00 03/27/23 13:00 Pulse Rate 64 54 L Respiratory Rate 16 17 Blood Pressure 141/62 H Pulse Oximetry 99 98 Oxygen Delivery Method Room Air Room Air 03/27/23 13:30 03/27/23 13:30 03/27/23 14:00 Pulse Rate 62 65 Respiratory Rate 20 24 Blood Pressure 161/67 H Pulse Oximetry 98 98 Oxygen Delivery Method Room Air Room Air 03/27/23 14:01 03/27/23 14:01 03/27/23 14:30 Pulse Rate 51 L 54 L Respiratory Rate 17 15 Blood Pressure 134/64 Pulse Oximetry 100 99 Oxygen Delivery Method 03/27/23 14:31 03/27/23 14:31 03/27/23 15:00 Pulse Rate 65 63 Respiratory Rate 17 19 Blood Pressure 176/78 H Pulse Oximetry 99 98 Oxygen Delivery Method 03/27/23 15:01 03/27/23 15:01 03/27/23 15:30 Pulse Rate 62 67 Respiratory Rate 22 20 Blood Pressure 151/68 H Pulse Oximetry 98 97 Oxygen Delivery Method 03/27/23 15:31 03/27/23 15:31 03/27/23 16:00 Pulse Rate 54 L Respiratory Rate 14 Blood Pressure 147/68 H 145/75 H Pulse Oximetry 99 Oxygen Delivery Method Room Air 03/27/23 16:00 03/27/23 16:30 03/27/23 17:00 Pulse Rate 71 69 75 Respiratory Rate 18 13 20 Blood Pressure Pulse Oximetry 95 95 97 Oxygen Delivery Method Room Air 03/27/23 17:30 Pulse Rate 67 Respiratory Rate 12 Blood Pressure Pulse Oximetry 97 Oxygen Delivery Method MDM - Fall Lab Data 03/27/23 11:30 03/27/23 11:30 Labs: Lab Results 03/27/23 03/27/23 03/27/23 Range/Units 11:30 11:30 13:03 WBC 7.4 (4.5-11.0) X10^3/uL RBC 4.35 (4.0-5.2) X10^6/uL Hgb 13.1 (12.0-16.0) g/dL Hct 38.9 (36-46) % MCV 89.4 (80-100) fL MCH 30.1 (26-34) PG MCHC 33.7 (30-36) % RDW 14.2 (11.6-14.8) % Plt Count 255 (150-400) X10^3/uL Neut % (Auto) 57.4 (50-75) % Lymph % (Auto) 30.0 (25-40) % [place] % (Auto) 8.2 (3-14) % Eos % (Auto) 4.1 H (2-4) % Baso % (Auto) 0.3 (0-2) % Neut # (Auto) 4200 (3402-9925) /uL Lymph # (Auto) 2200 (5666-6012) /uL [place] # (Auto) 600 (0-900) /uL Eos # (Auto) 300 (0-450) /uL Baso # (Auto) 0 (0-100) /uL Sodium 135 L (137-145) mmol/L Potassium 4.2 (3.4-5.1) mmol/L Chloride 101 (98-107) mmol/L Carbon Dioxide 26 (22-32) mmol/L BUN 36 H (7-17) mg/dL Creatinine 1.53 H (0.52-1.04) mg/dL Estimated GFR 33 L (>60) mL/min BUN/Creatinine Ratio 23.5 H (6-22) Glucose 104 (80-110) mg/dL Calcium 9.6 (8.4-10.2) mg/dL Total Bilirubin 0.6 (0.2-1.3) mg/dL AST 25 (14-36) IU/L ALT 16 (<35) IU/L Alkaline Phosphatase 96 (38-126) U/L Total Creatine Kinase 225 H (30-135) U/L CK-MB (CK-2) TNP CK-MB (CK-2) Rel Index TNP Troponin I < 0.012 (0.01-0.034) ng/mL Total Protein 8.2 (6.3-8.2) g/dL Albumin 4.2 (3.5-5.0) g/dL Globulin 4.0 (1.7-4.1) g/dL Albumin/Globulin Ratio 1.1 (1.0-2.8) Lipase 60 (23-300) U/L Urine Color Yellow Urine Appearance Clear Urine pH 5.5 (4.5-8.0) Ur Specific [place] 1.015 (1.000-1.035) Urine Protein Negative (Negative) Urine Glucose (UA) Negative (Negative) g/dL Urine Ketones Negative (NEGATIVE) Urine Occult Blood Negative (Negative) Urine Nitrate Negative (Negative) Urine Bilirubin Negative (NEGATIVE) Urine Urobilinogen 0.2 (0.2) E.U./dL Ur Leukocyte Esterase Negative (NEGATIVE) Urine RBC None seen (0-5/HPF) Urine WBC 0-1/hpf (0-5/HPF) Ur Squamous Epith Cells 1-5 /hpf (0-5/HPF) Amorphous Sediment 1+ Urine Bacteria None seen (None) Urine Mucus 1+ H (Negative) Ur Culture Indicated? Cult not indicated Imaging Data Chest x-ray: Radiologist's Impression: PROCEDURE:? XR RIBS RT MIN 3V W CXR 1V ? INDICATIONS:? fall pain ? TECHNIQUE:? 2 views of the right ribs were acquired, along with a single view chest.? ? COMPARISON:? [facility], CR, XR CHEST 2V, 01/19/2023, 15:44. ? FINDINGS:? ? Surgical changes and devices:? None.? Overlying EKG wires. ? Bones and chest wall:? No displaced rib fractures within limits of this exam.? No suspicious bony lesions.? Overlying soft tissues appear unremarkable.? Postsurgical changes of cholecystectomy. ? Lungs and pleura:? No pleural effusions or pneumothorax.? Low lung volumes causing prominence of the bronchovascular markings. ? Mediastinum:? Mediastinal contours appear normal.? Heart size is normal.? Vascular calcifications within the aortic arch. ? IMPRESSION:? ? No acute abnormality identified. ? ? Dictated by: Alfie Carranza D.O. on 03/27/2023 at 11:12 ?? CT scan - chest: Radiologist's Impression: PROCEDURE:? CT CHEST WO CON ? INDICATIONS:? Persistent pain after fall ? TECHNIQUE: Noncontrast 5 mm thick sections acquired from the pulmonary apices to the posterior costophrenic angles.? 1 mm lung window, 5 mm thick coronal and sagittal and 7 mm axial MIP reformats were then acquired.? For radiation dose reduction, the following was used:? automated exposure control, adjustment of mA and/or kV according to patient size.? ? COMPARISON:? [facility], CR, XR RIBS RT MIN 3V W CXR 1V, 03/27/2023, 11:37. ? FINDINGS:? Image quality:? Excellent.? ? Lungs and pleura:? Central airways are clean.? Incidental note of an azygos fissure.? There is mild atelectasis.? There is interstitial prominence of the lung bases as well as the right greater than left upper lobes with mild traction bronchiectasis.? No focal consolidation or pneumothorax.? 4 millimeter solid pulmonary nodule of the right upper lobe (series 3, image 89). ? Mediastinum:? Heart size is normal.? Advance multi-vessel coronary vascular calcifications.? Dense mitral annular calcifications as well as aortic valvular calcifications.? No pericardial effusion.? No mediastinal adenopathy by size criteria.? Thoracic aorta and central pulmonary arteries are normal in size.? Esophagus is normal in caliber.? Moderate to large hiatal hernia. ? Bones and chest wall:? No suspicious bony lesions.? No vertebral body compression fractures.? Minimally displaced fracture of the posterior aspect of the right 9th rib.? No axillary or supraclavicular adenopathy by size criteria.? Thyroid gland is unremarkable. ? Abdomen:? Visualized upper abdominal solid organs and bowel loops appear normal in the absence of contrast.? Status post cholecystectomy.? Punctate calcifications within spleen.? ? IMPRESSION:? ? Minimally displaced fracture of the posterior aspect of the right 9th rib. ? Moderate to large hiatal hernia. ? 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 Consider pulmonary only J referral with dedicated high-resolution CT for further evaluation if clinically warranted. ? Marked multi-vessel coronary vascular calcifications.. ? ? Dictated by: Alfie Carranza D.O. on 03/27/2023 at 15:39 ? ? ECG Data Interpretation: Normal sinus rhythm rate 52 ID interval 222 QRS [address] changes no T-wave inversions much improved from previous EKGs MDM Narrative Medical decision making narrative: Patient 87-year-old female who presents today with weakness and fall. She is extremely tender on her right ribs rib x-ray is negative. Initially given morphine which only helped mildly with her pain. CT chest confirmed a right 9th posterior rib fracture. She is given Toradol and Dilaudid. She really is unable to sit up or ambulate secondary to significant pain. She has no evidence of infection no leukocytosis anemia electrolyte abnormality. Creatinine function is slightly increased today BUN 30 creatinine 1.5 baseline is 1 2. Possible mild dehydration causing some weakness and possible fall. Patient lives alone she has a neighbor who is here with her. She does have some home health they only, few times a week. Dr. Don accepts patient Discharge Plan Departure Patient Disposition: Admitted as Observation Clinical Impression: Closed rib fracture, JAGDEEP (acute kidney injury) Admit Date/Time: 03/27/23 17:40 Admit Provider: Ree Don
[2023-03-27 11:42] LABS: Add Manual Diff / Slide Review NO; Basophils Absolute Auto 0 /uL (0-100); Basophils Percent Auto 0.3 % (0-2); Eosinophils Absolute Auto 300 /uL (0-450); Eosinophils Percent Auto 4.1 % (2-4); Hematocrit 38.9 % (36-46); Hemoglobin 13.1 g/dL (12.0-16.0); Lymphocytes Absolute Auto 2200 /uL (1100-4500); Mean Corpuscular HGB Conc 33.7 % (30-36); Mean Corpuscular Hemoglobin 30.1 PG (26-34); Mean Corpuscular Volume 89.4 fL (80-100); Monocytes Absolute Auto 600 /uL (0-900); Monocytes Percent Auto 8.2 % (3-14); Neutrophils Absolute Auto 4200 /uL (1500-7000); Neutrophils Percent Auto 57.4 % (50-75); Platelet Count 255 X10^3/uL (150-400); Red Blood Cell Count 4.35 X10^6/uL (4.0-5.2); Red Cell Distribution Width 14.2 % (11.6-14.8); White Blood Cell Count 7.4 X10^3/uL (4.5-11.0)
[2023-03-27 11:55] LABS: Alanine Aminotransferase 16 IU/L (<35); Albumin 4.2 g/dL (3.5-5.0); Albumin Globulin Ratio 1.1 (1.0-2.8); Alkaline Phosphatase 96 U/L (38-126); Aspartate Aminotransferase 25 IU/L (14-36); BUN Creatinine Ratio 23.5 (6-22); Bilirubin Total 0.6 mg/dL (0.2-1.3); Blood Urea Nitrogen 36 mg/dL (7-17); Calcium 9.6 mg/dL (8.4-10.2); Carbon Dioxide 26 mmol/L (22-32); Chloride 101 mmol/L (98-107); Creatine Kinase 225 U/L (30-135); Estimated Glomerular Filt Rate 33 mL/min (>60); Glucose 104 mg/dL (80-110); HEMOLYSIS < 15 (0-50); Lipase 60 U/L (23-300); Potassium 4.2 mmol/L (3.4-5.1); Sodium 135 mmol/L (137-145); Total Protein 8.2 g/dL (6.3-8.2)
[2023-03-27 12:07] LABS: Troponin I < 0.012 ng/mL (0.01-0.034)
[2023-03-27] MEDS: MORPHINE 2 MG/ML INJ IV (12:30)
[2023-03-27 13:17] LABS: Appearance Urine UA CLEAR; Bilirubin Urine UA NEGATIVE (NEGATIVE); Color Urine UA YELLOW; Glucose Urine UA NEGATIVE (Negative); Ketones Urine UA NEGATIVE (NEGATIVE); Leukocyte Esterase Urine UA NEGATIVE (NEGATIVE); Nitrite Urine UA NEGATIVE (Negative); Occult Blood Urine UA NEGATIVE (Negative); Protein Urine UA NEGATIVE (Negative); Specific Gravity Urine UA 1.015 (1.000-1.035); Urobilinogen Urine UA 0.2 E.U./dL (0.2)
[2023-03-27 13:18] LABS: pH Urine UA 5.5 (4.5-8.0)
[2023-03-27 13:28] LABS: RBC Urine None Seen (0-5/HPF); WBC Urine 0-1/HPF (0-5/HPF)
[2023-03-27 13:29] LABS: Amorphous Sediment Urine 1+; Bacteria Urine None Seen; Culture Indicated Urine Cult Not Indicated; Mucus Urine 1+ (Negative); Squamous Epithelial Cell Urine 1-5 /HPF (0-5/HPF)
--- NOTE | 2023-03-27 15:44 | DI.CT.S_ITS ---
PROCEDURE: CT CHEST WO CON INDICATIONS: Persistent pain after fall TECHNIQUE: Noncontrast 5 mm thick sections acquired from the pulmonary apices to the posterior costophrenic angles. 1 mm lung window, 5 mm thick coronal and sagittal and 7 mm axial MIP reformats were then acquired. For radiation dose reduction, the following was used: automated exposure control, adjustment of mA and/or kV according to patient size. COMPARISON: [facility], CR, XR RIBS RT MIN 3V W CXR 1V, 03/27/2023, 11:37. FINDINGS: Image quality: Excellent. Lungs and pleura: Central airways are clean. Incidental note of an azygos fissure. There is mild atelectasis. There is interstitial prominence of the lung bases as well as the right greater than left upper lobes with mild traction bronchiectasis. No focal consolidation or pneumothorax. 4 millimeter solid pulmonary nodule of the right upper lobe (series 3, image 89). Mediastinum: Heart size is normal. Advance multi-vessel coronary vascular calcifications. Dense mitral annular calcifications as well as aortic valvular calcifications. No pericardial effusion. No mediastinal adenopathy by size criteria. Thoracic aorta and central pulmonary arteries are normal in size. Esophagus is normal in caliber. Moderate to large hiatal hernia. Bones and chest wall: No suspicious bony lesions. No vertebral body compression fractures. Minimally displaced fracture of the posterior aspect of the right 9th rib. No axillary or supraclavicular adenopathy by size criteria. Thyroid gland is unremarkable. Abdomen: Visualized upper abdominal solid organs and bowel loops appear normal in the absence of contrast. Status post cholecystectomy. Punctate calcifications within spleen. IMPRESSION: Minimally displaced fracture of the posterior aspect of the right 9th rib. Moderate to large hiatal hernia. 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 Consider pulmonary only J referral with dedicated high-resolution CT for further evaluation if clinically warranted. Marked multi-vessel coronary vascular calcifications.. Dictated by: Alfie Carranza D.O. on 03/27/2023 at 15:39 Approved by: Alfie Carranza D.O. on 03/27/2023 at 15:47
[2023-03-27] MEDS: KETOROLAC 30 MG/ML VIAL 15 MG IV (15:52)
[2023-03-27] MEDS: HYDROMORPHONE 1 MG INJ IV (15:53)
[2023-03-27] MEDS: OXYCODONE IR 5 MG TABLET PO (20:01)
[2023-03-27] MEDS: ACETAMINOPHEN 325 MG TABLET 975 MG PO (20:02)
[2023-03-27] MEDS: SENNOSIDES 8.6 MG TABLET 17.2 MG PO (20:19)
--- NOTE | 2023-03-27 22:44 | PM.HP.1 ---
History of Present Illness History of Present Illness Date Patient Seen: 03/27/23 Time Patient Seen: 22:00 Chief complaint: fall, right shoulder pain Narrative: Ms. Cao is an 87W with PMH CAD s/p NSTEMI, CVA with left side deficit, hypothyroid, HTN, HL, and chronic back/sciatica pain who presents to the hospital after a fall. She states she was ambulating to use the bathroom and tripped and fell. She thinks she fell and hit the toilet with the right side of her body. She was initially complaining of rib pain in the ED per notes. However to me she is [facility] more concerned about her sciatica pain. She notes she has chronic lower back pain that radiates down her right leg. It is often quite painful, and then pain today is not particularly worse than usual for her. She did not hit her head or lose consciousness. She has no shortness of breath. She does have some nausea. In the ED workup was done, vitals notable for afebrile, heart rate 60s, blood pressure 150s/90s, 98% room air. Labs reviewed by me and notable for WBC 7.4, hgb 13.1, plts 255. Na 125, BUN 36, creatinine 1.53. Rib xray showed no acute process. 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 Per ED they attempted to mobilize her but she wsa in too much pain and she was admitted for pain control. 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 Lumbar spinal stenosis Osteopenia Osteopenia Stenosis of right carotid artery greater than 50% Surgical History History of bilateral breast reduction surgery History of cataract extraction with lens replacement History of cholecystectomy History of hysterectomy Family History Other Adopted (not a blood relative) Social History household members: none Smoking Status: Former smoker alcohol intake: current Meds Home Medications and Allergies Home Medications Medication Instructions Recorded Confirmed Type oxybutynin chloride 5 mg tablet 5 mg PO BID 05/24/19 03/27/23 History rosuvastatin 40 mg tablet 40 mg PO BEDTIME 05/24/19 03/27/23 History tramadol 50 mg tablet 50 mg PO Q8H PRN pain #20 tabs 03/23/23 03/27/23 Rx clopidogrel 75 mg tablet 75 mg PO DAILY 03/27/23 03/27/23 History gabapentin 300 mg capsule See Rx Instructions .Route .COMPLEX 03/27/23 03/27/23 History Allergies Allergy/AdvReac Type Severity Reaction Status Date / Time No Known Drug Allergies Allergy Verified 03/27/23 11:01 Review of Systems Review of Systems Narrative: 14 systems reviewed and negative aside from what is noted in HPI Exam Vital Signs (past 8 hours): - 03/27/23 15:00 03/27/23 15:01 03/27/23 15:01 Temperature Pulse Rate 63 62 Respiratory Rate 19 22 Blood Pressure 151/68 H Pulse Oximetry 98 98 Oxygen Delivery Method Oxygen Flow Rate 03/27/23 15:30 03/27/23 15:31 03/27/23 15:31 Temperature Pulse Rate 67 54 L Respiratory Rate 20 14 Blood Pressure 147/68 H Pulse Oximetry 97 99 Oxygen Delivery Method Room Air Oxygen Flow Rate 03/27/23 16:00 03/27/23 16:00 03/27/23 16:30 Temperature Pulse Rate 71 69 Respiratory Rate 18 13 Blood Pressure 145/75 H Pulse Oximetry 95 95 Oxygen Delivery Method Oxygen Flow Rate 03/27/23 17:00 03/27/23 17:30 03/27/23 18:00 Temperature Pulse Rate 75 67 60 Respiratory Rate 20 12 12 Blood Pressure Pulse Oximetry 97 97 96 Oxygen Delivery Method Room Air Oxygen Flow Rate 03/27/23 18:30 03/27/23 19:19 03/27/23 19:05 Temperature 97.1 F L Pulse Rate 59 L 77 Respiratory Rate 14 17 Blood Pressure 147/70 H Pulse Oximetry 95 96 96 Oxygen Delivery Method Room Air Room Air Oxygen Flow Rate 0 0 Oxygen Delivery Method Room Air Oxygen Flow Rate 0 Narrative Exam Narrative: GEN: no acute distress CV: regular rate and rhythm PULM: clear bilaterally CHEST: nontender to palpation ABD: soft, nontender EXT: warm and well perfused NEURO: sleepy, no focal deficits Objective Labs 03/27/23 11:30 03/27/23 11:30 Labs: Laboratory Results - last 24 hr 03/27/23 03/27/23 03/27/23 11:30 11:30 13:03 WBC 7.4 RBC 4.35 Hgb 13.1 Hct 38.9 MCV 89.4 MCH 30.1 MCHC 33.7 RDW 14.2 Plt Count 255 Neut % (Auto) 57.4 Lymph % (Auto) 30.0 [place] % (Auto) 8.2 Eos % (Auto) 4.1 H Baso % (Auto) 0.3 Neut # (Auto) 4200 Lymph # (Auto) 2200 [place] # (Auto) 600 Eos # (Auto) 300 Baso # (Auto) 0 Sodium 135 L Potassium 4.2 Chloride 101 Carbon Dioxide 26 BUN 36 H Creatinine 1.53 H Estimated GFR 33 L BUN/Creatinine Ratio 23.5 H Glucose 104 Calcium 9.6 Total Bilirubin 0.6 AST 25 ALT 16 Alkaline Phosphatase 96 Total Creatine Kinase 225 H CK-MB (CK-2) TNP CK-MB (CK-2) Rel Index TNP Troponin I < 0.012 Total Protein 8.2 Albumin 4.2 Globulin 4.0 Albumin/Globulin Ratio 1.1 Lipase 60 Urine Color Yellow Urine Appearance Clear Urine pH 5.5 Ur Specific [place] 1.015 Urine Protein Negative Urine Glucose (UA) Negative Urine Ketones Negative Urine Occult Blood Negative Urine Nitrate Negative Urine Bilirubin Negative Urine Urobilinogen 0.2 Ur Leukocyte Esterase Negative Urine RBC None seen Urine WBC 0-1/hpf Ur Squamous Epith Cells 1-5 /hpf Amorphous Sediment 1+ Urine Bacteria None seen Urine Mucus 1+ H Ur Culture Indicated? Cult not indicated Assessment & Plan Assessment & Plan narrative: 1. Rib fracture, fall and sciatica pain exacerbation -presented after a fall with injury -9th right rib fracture is minimally displaced -will order pain medications with opiate and tylenol, and IS to prevent splinting -work with PT 2. JAGDEEP on CKD stage 3 -continue to monitor -initial creatinine 1.53, baseline appears 1.18-1.24 -avoid significant nsaid use for pain control 4. Hypothyroidism -continue synthroid 5. CVA with residual left deficits -continue home medications -PT eval 6. Hiatal hernia -PPI 7. Fibrotic lung disease -follow up with PCP I hav discussed plan and obtained history from the patient. I have discussed plan of care with ED physician and bedside nurse. I have reviewed labs, imaging CODE: DNR Proxy: Kalpana Santana, alesia Quality VTE Deep Vein Thrombosis/Pulmonary Embolism Present on Admission: No MIPS - Meds 'Current medications' to include all prescriptions, [id number] products, herbals, cannabis/cannabidiol products, and vitamin/mineral/dietary (nutritional) supplements. I have utilized all available resources to obtain, update, or review the patient?s current medications. [If Yes, STOP here]: Yes
--- NOTE | 2023-03-27 23:29 | PC.NURSE ---
03/27/2023 @ 2320 Bladder scanned patient. Bladder scan showed only 38cc in bladder. Brief is dry and purewick in place. Reported to Loretta Kidd RN
[2023-03-28] VITALS (8 sets, daily range): BP systolic 117–129; BP diastolic 56–69; PULSE 69–96; RESP 17–18; TEMP 36.2–36.6; O2SAT 91–97
[2023-03-28] MEDS: ACETAMINOPHEN 325 MG TABLET 975 MG PO ×4 (00:31→21:46)
[2023-03-28] MEDS: OXYCODONE IR 5 MG TABLET PO ×3 (00:32→12:03)
--- NOTE | 2023-03-28 02:59 | PC.NURSE ---
Admit/NOC Shift Note- Patient arrived to room via stretcher at 1900. Slider board used to transfer patient to bed. Patient reports 9/10 pain to back and left side rib Fx. Admit questions done,. medications reviewed, physical assessment completed. PRN PO Oxycodone given for complaints of pain. Patient luis alberto of hearing. Patient oriented to bed an bed controls, room, bathroom, lights, phone, menu, and call b ell/TV remote. Patient will need freqent reorienting. Patient provided to a soft call button due to vision issues. Safety measures in n place, patient agrees to call for assistance. Bed alarm activated. Will continue to monitor.
[2023-03-28 06:42] LABS: Add Manual Diff / Slide Review NO; Basophils Absolute Auto 0 /uL (0-100); Basophils Percent Auto 0.3 % (0-2); Eosinophils Absolute Auto 300 /uL (0-450); Eosinophils Percent Auto 4.7 % (2-4); Lymphocytes Absolute Auto 1900 /uL (1100-4500); Mean Corpuscular HGB Conc 33.3 % (30-36); Mean Corpuscular Hemoglobin 29.5 PG (26-34); Mean Corpuscular Volume 88.8 fL (80-100); Monocytes Absolute Auto 800 /uL (0-900); Monocytes Percent Auto 11.4 % (3-14); Neutrophils Absolute Auto 3900 /uL (1500-7000); Neutrophils Percent Auto 56.6 % (50-75); Platelet Count 233 X10^3/uL (150-400); Red Blood Cell Count 4.39 X10^6/uL (4.0-5.2); White Blood Cell Count 6.9 X10^3/uL (4.5-11.0)
[2023-03-28 06:53] LABS: BUN Creatinine Ratio 25.9 (6-22); Blood Urea Nitrogen 36 mg/dL (7-17); Calcium 9.2 mg/dL (8.4-10.2); Carbon Dioxide 25 mmol/L (22-32); Chloride 101 mmol/L (98-107); Estimated Glomerular Filt Rate 37 mL/min (>60); Glucose 109 mg/dL (80-110); HEMOLYSIS < 15 (0-50); Potassium 4.3 mmol/L (3.4-5.1); Sodium 133 mmol/L (137-145)
[2023-03-28] MEDS: PANTOPRAZOLE DR 20 MG TABLET PO (08:04)
[2023-03-28] MEDS: OXYBUTYNIN 5 MG TABLET PO ×2 (08:04→21:46)
[2023-03-28] MEDS: GABAPENTIN 100 MG CAPSULE PO (08:06)
[2023-03-28] MEDS: CLOPIDOGREL 75 MG TABLET PO (08:06)
[2023-03-28] MEDS: TRAMADOL 50 MG TABLET PO ×2 (10:33→21:47)
[2023-03-28] MEDS: ONDANSETRON 4 MG ODT SL (10:34)
[2023-03-28] MEDS: LIDOCAINE PATCH 1 EACH ADH..PATCH TOP (10:34)
[2023-03-28] MEDS: GABAPENTIN 300 MG CAPSULE PO ×2 (10:35→12:04)
--- NOTE | 2023-03-28 11:59 | CM.DANOTE ---
Addendum entered by Yolanda Garrett R.N. 03/28/23 13:01: Met with patient's POA, niece, Michela Owen. Reminded her that patient is medically stable, not considered inpatient, but outpatient. Her concerns are that she can't even get out of bed, and that none of the family knows how to care for her. Asked her if she can stay with patient, indicated that she can't, has her own health issues. She wanted to know if she might have a UTI, or if she hit her head. Did run this by Dr. Joel, her UA was negative, and patient already had recent CT scan. Let nimiguel know to plan for discharge tomorrow, either private pay (if possible), to skilled, went over facilities with ipad, or home health. She will consult with her sister, she has been out of the country, regarding patient's finances. Let her know that for patient to go to [facility], will be approximately $12,000 dollars for the month , with about $450.00 per day. Encouraged her to also call [facility], to increase care and hours. Called over at [facility], Orly is on for March, will send over the referral. Confirmed that they do have beds available, but reminded her that it will be private pay. Addendum entered by Yolanda Garrett R.N. 03/28/23 12:19: Looked at scanning documents, it is noted that patient is straight Medicare, patient will have to pay privately if skilled is needed. Mentioned this to Michela Julien, regarding the cost for half-way. Original Note: DCP: Case received, EMR reviewed and met with patient. Introduced self and role. Was able to get additional information from Michela Julien, patient's niece (POA), regarding her baseline activity level and care needs. DCP assessment completed with information currently available. Patient is an 87 year old female who admitted yesterday evening to the care of the hospitalist team. PCP: Dr. Idalia Bashir. Payer: confirmed: Medicare/[employer]ARP. Patient came to the hospital via ambulance secondary to a ground level fall that occurred at home in the bathroom. Notes indicate that patient was getting up to use the restroom, fell in the bathroom, secondary to urinary incontinence. Patient had complained of right-sided hip pain. Patient was given Morphine to help with pain. She was noted to have confirmed right 9th posterior rib fracture. While patient was in the emergency, it was noted that they attempted to mobilize her, but was in too much pain. Therefore, she was admitted to the floor. Patient does have P.T, and O.T. orders. Met with patient in her room. She is anxious and tearful. Confirmed that she does live alone. She continued to ask, did the chief nurse executive bring me here right away, or the second time?. Notes indicate that she was in the ER prior, for her history of sciatica. Patient has [facility], they come in three times a week, from 1:00 to 1700. She has a neighbor, Kalpana Santana, who drives her to appointments, is listed as contacts, patient does not drive. She uses a walker at home, and has her lifeline on her wrist, which she used when she fell. She has not yet been out of bed. Marycruz Corrigan mentioned discharging her, no medical needs to keep her. Discussed with patient, asked her about home health, stated, she has used [facility] before. She was crying about going home. Asked her if she has any family in the area, stated that she has no local family, but has a niece in [place]. As this DC Truck Driver'S Offsider was in the room, her niece, Michela Julien called. She is on her way here from [place]. Her number is: [phone]. Her concerned are about sending her home, since she lives alone, and the caregivers that come in are mostly for kier drier. Patient did indicate that the caregivers do assist her with showers and meal prep. Let niece know that patient has no medical needs to be inpatient for admission upstairs. She would like to discuss options. Asked her about patient's finances, if she can pay privately to go to a half-way facility. She is going to discuss this when she gets here, and to look at options. This DC Truck Driver'S Offsider will double check her insurance to look and see if she is straight Medicare, or United. If she is United, will have options for half-way. She also has not yet worked with P.T, and need to have an eval as well. P: KRISHANP to continue to work on plan. She is deemed outpatient per EHR, should have most likely not been admitted. Will plan on meeting with niece to discuss options. Yolanda Garrett RN/Mail Handlers Supervisor Discharge Planning/Care Management Advanced directive, confirm from FAMILY Start: 03/27/23 19:55 Freq: Q24H Status: Complete Protocol: Document 03/27/23 21:00 AGW (Rec: 03/27/23 21:40 AGW [id number]) Advance Directive, confirm on record Time 21:00 Person contacted patient Copy received Yes Advanced directive available on record Yes CM Discharge Assessment Start: 03/28/23 11:57 Freq: Status: Active Protocol: Document 03/28/23 11:57 VM (Rec: 03/28/23 11:58 VM [id number]) Discharge Planning Assessment Assigned Senior Javascript Developer Yolanda Garrett RN/Mail Handlers Supervisor Advance Directives? Yes Advance Directives on File No History Provided By Patient,Friend,Medical Record Prior Living Arrangements Apartment/Condo Household Members none Type of transporation used prior to Relies on Others admit Independent with ADL's Yes Needs Assistance With Bathing,Meal Prep,Home Chores / Shopping Caregiver for Another No DME Already Rented / Owned FWW / Walker Patient/Family Preference Shelter Facility,Home with Home Health Comment Patient may have to pay privately for half-way. Comment Lives alone, does not have local family, only has [facility] 3 times a week. Discharge Plan Home with Home Health Transportation Arrangement Family. Referrals Initiated Home Health Additional Comment Patient wants [facility], she has had this before. She has not been up as of yet with P.T, may need skilled, but would need to be on a private pay basis. If patient plan is home with home health Yes : Has signed face to face form been completed? Whiteboard Updated in Patient Room with Yes name and ext. # of Senior Javascript Developer Review Status In Process Next Review Type Continued Stay Review
[2023-03-28] MEDS: OXYCODONE IR 10 MG TABLET 2.5 MG PO ×2 (14:51→18:22)
--- NOTE | 2023-03-28 17:12 | P.PN_ITS ---
Subjective Subjective Interval history: 77-year-old female with coronary artery disease status post NSTEMI, previous stroke (x2) with left-sided deficit, Eve's thyroiditis, right carotid artery stenosis, chronic right-sided sciatica, hypertension, hyperlipidemia, who was admitted under observation status last night after a fall with sustaining a right 9th rib fracture, minimally displaced. In the emergency department, she reported her pain was too severe to get up from the bed. She lives alone with s ome help 4 days per week, but has no local family or friends who could stay with her. Therefore she was admitted for further monitoring. Today, her DPOA did drive up from [place]. She expressed concern the patient seemed a bit confused. However, it was felt this was likely secondary to the oxycodone she had been receiving. Although she would 2 doses available both 2.5 mg and 5 mg, she would not been given a 2.5 mg dose. Thus she would had a total of 20 mg of oral oxycodone between 8:00 p.m. last night and 12:00 p.m. today. DPOA did not feel she would be able to provide supervision in the patient's home. Patient did not feel she could get out of bed and be independent. Patient tells me that she had been up and about ambulatory with a walker up until 5 days prior to admission. She states on that day she developed increasing back pain and states she was unable to get out of bed. She reports she urinated in her bed. She states that her caregiver arrived and found her in bed and soiled and contacted EMS. She was brought to the emergency department for further evaluation. CT scan of her head was performed which revealed evidence of old right MCA territory infarct but no acute changes. She is ultimately discharged home with a prescription for tramadol. She was encouraged to follow-up with her primary care provider. She states since that time she is had difficulty with mobility. She states yesterday she was up with her walker when she sustained a fall in the bathroom. She hit her ribs against the bathroom sink. EMS was called and she was transported to the emergency department. Pain control was challenging in the emergency department and it was felt she could not safely discharge. Michela is stating that she feels she would do fine if she could go to a skilled facility, but did not seem to understand that as an observation status patient she would have to self pay for group home. She also feels that she might be able to ?transition home? with a PureWick catheter. She feels getting out of bed to void 7 times a day is more than she can handle. She notes she has had chronic back pain which has been progressively worsening. She reports she was previously told by a physician that there was no way to fix the sciatica. Exam Vital Signs (past 8 hours): - 03/28/23 11:00 03/28/23 14:34 Temperature 97.2 F L Pulse Rate 89 Respiratory Rate 18 Blood Pressure 129/56 L Pulse Oximetry 95 91 Oxygen Delivery Method Room Air Oxygen Flow Rate 0 Oxygen Delivery Method Room Air Oxygen Flow Rate 0 Narrative Exam Narrative: GEN: Tearful anxious elderly female, mildly forgetful, Alert and oriented x 3 HEENT:NC, Face symmetric CHEST: Respiratory excursions symmetric, CTAB CV: RRR, no M/R/G ABD: Soft, NT/ND, BT present in all 4 quadrants, no organomegaly or masses EXTR: warm, well perfused, no C/C/E SKIN: warm and dry, no rash NEURO: Alert and oriented x 3, mildly forgetful as noted Objective Labs 03/28/23 05:58 03/28/23 05:58 Labs: Laboratory Results - last 24 hr 03/28/23 03/28/23 05:58 05:58 WBC 6.9 RBC 4.39 Hgb 13.0 Hct 39.0 MCV 88.8 MCH 29.5 MCHC 33.3 RDW 14.0 Plt Count 233 Neut % (Auto) 56.6 Lymph % (Auto) 27.0 Payne % (Auto) 11.4 Eos % (Auto) 4.7 H Baso % (Auto) 0.3 Neut # (Auto) 3900 Lymph # (Auto) 1900 Payne # (Auto) 800 Eos # (Auto) 300 Baso # (Auto) 0 Sodium 133 L Potassium 4.3 Chloride 101 Carbon Dioxide 25 BUN 36 H Creatinine 1.39 H Estimated GFR 37 L BUN/Creatinine Ratio 25.9 H Glucose 109 Calcium 9.2 PFSH Medical History Chronic sciatica of right side CVA (cerebral vascular accident) Degenerative disc disease Essential hypertension History of CVA (cerebrovascular accident) History of non-ST elevation myocardial infarction (NSTEMI) Hyperlipidemia 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 Minimally displaced right 9th rib fracture after a fall Patient has now had 2 admissions in the past 3 months secondary to falls and resultant injuries. She does not appear to have adequate safety at home. I did discuss with her the possibility of an assisted living facility. She states this has come up previously. She states she is not done more than talk about it with her power of superintendent sales. She does not seem to know if she can self pay to go to a group home facility temporarily. Patient continues on scheduled Tylenol and tramadol as needed. I have decreased the oxycodone to 2.5 mg doses. Lidocaine patch has also been ordered. 2. JAGDEEP and CKD 3 Improved today. Creatinine was 1.53 yesterday. It is 1.39 today. 3. Hypothyroidism Continue Synthroid 4. History of cerebrovascular accident with left-sided deficits Await PT evaluation. As noted, I have advised she likely requires a higher level of care. Continue Plavix and rosuvastatin 5. Fibrotic lung disease Stable. Asymptomatic. 6. Hiatal hernia Continue PPI Code status DNR Prophylaxis On Lovenox Disposition Pending Quality VTE Deep Vein Thrombosis/Pulmonary Embolism Present on Admission: No
--- NOTE | 2023-03-28 19:03 | PC.NURSE ---
Pt's pain has not been controlled at all during the shift. Spoke to Dr. Don several times about the pt's pain level. Got Tramadol added for the pt as the pt takes this at home. Also got an order for lidocaine patch to help with the rib pain.
--- NOTE | 2023-03-28 19:16 | P.PN_ITS ---
Subjective Subjective Interval history: 77-year-old female with coronary artery disease status post NSTEMI, previous stroke (x2) with left-sided deficit, Eve's thyroiditis, right carotid artery stenosis, chronic right-sided sciatica, hypertension, hyperlipidemia, who was admitted under observation status last night after a fall with sustaining a right 9th rib fracture, minimally displaced.? In the emergency department, she reported her pain was too severe to get up from the bed.? She lives alone with s ome help 4 days per week, but has no local family or friends who could stay with her.? Therefore she was admitted for further monitoring. Today, her DPOA did drive up from [place].? She expressed concern the patient seemed a bit confused.? However, it was felt this was likely secondary to the oxycodone she had been receiving.? Although she would 2 doses available both 2.5 mg and 5 mg, she would not been given a 2.5 mg dose.? Thus she would had a total of 20 mg of oral oxycodone between 8:00 p.m. last night and 12:00 p.m. today.? DPOA did not feel she would be able to provide supervision in the patient's home.? Patient did not feel she could get out of bed and be independent. Patient tells me that she had been up and about ambulatory with a walker up until 5 days prior to admission.? She states on that day she developed increasing back pain and states she was unable to get out of bed.? She reports she urinated in her bed.? She states that her caregiver arrived and found her in bed and soiled and contacted EMS.? She was brought to the emergency department for further evaluation.? CT scan of her head was performed which revealed evidence of old right MCA territory infarct but no acute changes.? She is ultimately discharged home with a prescription for tramadol.? She was encouraged to follow-up with her primary care provider.? She states since that time she is had difficulty with mobility.? She states yesterday she was up with her walker when she sustained a fall in the bathroom.? She hit her ribs against the bathroom sink.? EMS was called and she was transported to the emergency department.? Pain control was challenging in the emergency department and it was felt she could not safely discharge. Michela is stating that she feels she would do fine if she could go to a skilled facility, but did not seem to understand that as an observation status patient she would have to self pay for snf.? She also feels that she might be able to ?transition home? with a PureWick catheter.? She feels getting out of bed to void 7 times a day is more than she can handle.? She notes she has had chronic back pain which has been progressively worsening.? She reports she was previously told by a physician that there was no way to fix the sciatica. Exam Vital Signs (past 8 hours): - 03/28/23 14:34 03/28/23 15:00 Temperature 97.2 F L Pulse Rate 89 Respiratory Rate 18 Blood Pressure 129/56 L Pulse Oximetry 91 94 Oxygen Delivery Method Room Air Oxygen Flow Rate 0 Oxygen Delivery Method Room Air Oxygen Flow Rate 0 Narrative Exam Narrative: GEN:? Tearful anxious elderly female, mildly forgetful, Alert and oriented x 3 HEENT:NC, Face symmetric CHEST: Respiratory excursions symmetric, CTAB CV: RRR, no M/R/G ABD: Soft, NT/ND, BT present in all 4 quadrants, no organomegaly or masses EXTR: warm, well perfused, no C/C/E SKIN: warm and dry, no rash NEURO: Alert and oriented x 3, mildly forgetful as noted Objective Labs 03/28/23 05:58 03/28/23 05:58 Labs: Laboratory Results - last 24 hr 03/28/23 03/28/23 05:58 05:58 WBC 6.9 RBC 4.39 Hgb 13.0 Hct 39.0 MCV 88.8 MCH 29.5 MCHC 33.3 RDW 14.0 Plt Count 233 Neut % (Auto) 56.6 Lymph % (Auto) 27.0 [place] % (Auto) 11.4 Eos % (Auto) 4.7 H Baso % (Auto) 0.3 Neut # (Auto) 3900 Lymph # (Auto) 1900 [place] # (Auto) 800 Eos # (Auto) 300 Baso # (Auto) 0 Sodium 133 L Potassium 4.3 Chloride 101 Carbon Dioxide 25 BUN 36 H Creatinine 1.39 H Estimated GFR 37 L BUN/Creatinine Ratio 25.9 H Glucose 109 Calcium 9.2 [facility] Medical History Chronic sciatica of right side CVA (cerebral vascular accident) Degenerative disc disease Essential hypertension History of CVA (cerebrovascular accident) History of non-ST elevation myocardial infarction (NSTEMI) Hyperlipidemia 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 Minimally displaced right 9th rib fracture after a fall Patient has now had 2 admissions in the past 3 months secondary to falls and resultant injuries.? She does not appear to have adequate safety at home.? I did discuss with her the possibility of an assisted living facility.? She states this has come up previously.? She states she is not done more than talk about it with her power of estate attorney.? She does not seem to know if she can self pay to go to a snf facility temporarily.? Patient continues on scheduled Tylenol and tramadol as needed.? I have decreased the oxycodone to 2.5 mg d oses.? Lidocaine patch has also been ordered. 2. JAGDEEP and CKD 3 Improved today.? Creatinine was 1.53 yesterday.? It is 1.39 today. 3. Hypothyroidism Continue Synthroid 4. History of cerebrovascular accident with left-sided deficits Await PT evaluation.? As noted, I have advised she likely requires a higher level of care.? Continue Plavix and rosuvastatin 5. Fibrotic lung disease Stable.? Asymptomatic. 6. Hiatal hernia Continue PPI Code status DNR Prophylaxis On Lovenox Disposition Pending Quality VTE Deep Vein Thrombosis/Pulmonary Embolism Present on Admission: No
[2023-03-28] MEDS: ATORVASTATIN 20 MG TABLET 80 MG PO (21:45)
[2023-03-28] MEDS: SENNOSIDES 8.6 MG TABLET 17.2 MG PO (21:46)
[2023-03-28] MEDS: GABAPENTIN 600 MG TABLET PO (21:46)
[2023-03-28] MEDS: NYSTATIN POWDER 15GM 1 APPLIC TOP (22:31)
[2023-03-29 05:11] VITALS: BP 119/61; PULSE 77; RESP 16; TEMP 36.5; O2SAT 92
[2023-03-29] MEDS: TRAMADOL 50 MG TABLET PO (06:53)
[2023-03-29] MEDS: PANTOPRAZOLE DR 20 MG TABLET PO (06:53)
[2023-03-29 07:13] LABS: Add Manual Diff / Slide Review NO; Basophils Absolute Auto 0 /uL (0-100); Basophils Percent Auto 0.3 % (0-2); Eosinophils Absolute Auto 300 /uL (0-450); Eosinophils Percent Auto 4.3 % (2-4); Hematocrit 34.7 % (36-46); Hemoglobin 11.7 g/dL (12.0-16.0); Lymphocytes Absolute Auto 1700 /uL (1100-4500); Lymphocytes Percent Auto 23.5 % (25-40); Mean Corpuscular HGB Conc 33.7 % (30-36); Mean Corpuscular Hemoglobin 30.2 PG (26-34); Mean Corpuscular Volume 89.6 fL (80-100); Monocytes Absolute Auto 800 /uL (0-900); Monocytes Percent Auto 10.3 % (3-14); Neutrophils Absolute Auto 4500 /uL (1500-7000); Neutrophils Percent Auto 61.6 % (50-75); Platelet Count 209 X10^3/uL (150-400); Red Blood Cell Count 3.88 X10^6/uL (4.0-5.2); White Blood Cell Count 7.3 X10^3/uL (4.5-11.0)
[2023-03-29 07:28] LABS: BUN Creatinine Ratio 22.8 (6-22); Blood Urea Nitrogen 29 mg/dL (7-17); Calcium 8.7 mg/dL (8.4-10.2); Carbon Dioxide 26 mmol/L (22-32); Chloride 104 mmol/L (98-107); Estimated Glomerular Filt Rate 41 mL/min (>60); Glucose 129 mg/dL (80-110); HEMOLYSIS < 15 (0-50); Potassium 4.7 mmol/L (3.4-5.1); Sodium 135 mmol/L (137-145)
--- NOTE | 2023-03-29 07:46 | CM.DPC ---
DCP Cont: Left a message with Miracle at [facility], had attempted to fax over the referral yesterday to Orly, who was education coordinator this weekend, for Orly did not have access to [facility]. In the message, informed March that patient would go under private pay, and to contact her niece, Michela Cardozo, and gave her the phone number. P: DCP to work on getting patient to [facility] private pay, have also sent referral over to [facility] , Isabel has referral, she does have supervisor intermediates care beds as well. Yolanda Garrett, ASHOK/Canvas Shop Laborer
[2023-03-29 08:00] VITALS: BP 116/47; PULSE 75; RESP 17; TEMP 36.1; O2SAT 95
[2023-03-29] MEDS: CLOPIDOGREL 75 MG TABLET PO (08:49)
[2023-03-29] MEDS: ACETAMINOPHEN 325 MG TABLET 975 MG PO (08:49)
[2023-03-29] MEDS: LIDOCAINE PATCH 1 EACH ADH..PATCH TOP (08:51)
[2023-03-29] MEDS: OXYBUTYNIN 5 MG TABLET PO (08:51)
[2023-03-29] MEDS: ENOXAPARIN 30 MG/0.3 ML SYRINGE SUBCUT (08:52)
[2023-03-29] MEDS: GABAPENTIN 300 MG CAPSULE PO ×2 (09:00→13:41)
[2023-03-29 09:58] VITALS: O2SAT 94
--- NOTE | 2023-03-29 10:46 | PC.NURSE ---
Patient is pleasant and denies discomfort at this time. Lidocaine patch applied to r.side of rib pain and helpful. Ate well at breakfast.
--- NOTE | 2023-03-29 11:13 | CM.DPC ---
Addendum entered by Yolanda Garrett R.N. 03/29/23 15:15: Spoke to March at [facility], indicated, she is still awaiting credit card information from niece, Michela Cardozo. Called niece, stated, she should have this information soon. Spoke to March again, did receive credit card information, and can take patient at 1500. Did speak to patient, and reminded her that she may need some additional care before going home, patient reluctant to go, but then, did agree. Dr. Edmondson working on orders, did fax over [facility] CM family medicine physician assistant working on med sheets and orders. DC Summary not yet completed. Will fax over when complete. Original Note: DCP Cont: Spoke to March at [facility], should be able to accept, has spoken to Michela Cardozo, who is having neighbor go to her house to see if she can get her credit card. Asked P.T, and O.T. to see patient as priority, for she is medically ready for discharge. P: DCP working on getting patient discharged to either [facility] today, or home with home health. Yolanda Garrett RN/Electronics Production Supervisor
--- NOTE | 2023-03-29 11:52 | OT.IP.EVAL ---
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 Lumbar spinal stenosis Osteopenia Osteopenia Stenosis of right carotid artery greater than 50% Surgical History (Last Reviewed 03/27/23 @ 22:45 by Ghanshyam Centeno MD) History of bilateral breast reduction surgery History of cataract extraction with lens replacement History of cholecystectomy History of hysterectomy Occupational Therapy Inpatient Evaluation/Re-Eval M1 PT/OT-IP Prior Functional Status Start: 03/29/23 08:54 Freq: NEEDED Status: Active Protocol: Document 03/29/23 13:35 CGR (Rec: 03/29/23 14:10 CGR [id number]) Medical Review Prior Functional Status Medical History Reviewed Yes Communication Pt is an effective verbal communicator. Mobility and Gait Pt was MOD I with 4ww at baseline. Activities of Daily Living and IADL's Pt states she is IND in all ADLs and gets assist from [facility] 3 times a week from 1 -5pm. They assist with bathing and cooking. Pt states she requires loose clothing and extra time for dressing. Social History Household Members none Living Arrangements House Number of Floors (Floors) One Floor Number of Stairs To Enter/Railing? 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 M2 OT-IP Current Condition Start: 03/29/23 13:35 Freq: Status: Active Protocol: Document 03/29/23 13:35 CGR (Rec: 03/29/23 14:10 CGR [id number]) Occupational Therapy Current Condition Current Condition Evaluation Date 03/29/23 Treatment Diagnosis Fall in bathroom, 9th rib fx. Diagnosis Onset Date 03/27/23 M3 OT- IP Subjective and Pain Start: 03/29/23 13:35 Freq: Status: Active Protocol: Document 03/29/23 13:35 CGR (Rec: 03/29/23 14:10 CGR [id number]) OT- Subjective Occupational Therapy Visit Type Type Initial Evaluation Visit Start Time 10:58 Visit Stop Time 11:52 Total Visit Minutes 54 Notes Partial co-treat with P.T. OT Pain Assessment Pain When Pain Assessed During Mobility Pain Present Pain Present Pain Reported Location Right chest / back/shoulder Scale Used did not rate Pain Behaviors Facial Grimacing,Guarding, Holding Area,Moaning Management Techniques Distraction,Modification of Treatment,Re-positioning M4 OT- IP ADL's Start: 03/29/23 13:35 Freq: Status: Active Protocol: Document 03/29/23 13:35 CGR (Rec: 03/29/23 14:10 CGR [id number]) OT IRO-[id number] Comments OT Self-Feeding Comments not meal time OT ADL-Grooming General Evaluation Grooming Ability Standby Assistance Areas Needing Assistance Face Washing Comments OT Grooming Comments provided with cloth OT ADL-Oral Care Comments Oral Care Comments not performed OT ADL-Dressing General Eval Lower Body Dressing Ability Total Assistance Areas Needing Assistance Socks Comments OT Dressing Comments Pt states she does not wear socks at baseline because she can not don them. OT ADL-Toileting Comments OT Toileting Comments not performed, pt is very focused on periwick for voiding. OT ADL-Bathing Comments OT Bathing Comments not performed M5 OT- IP IADL's Start: 03/29/23 13:35 Freq: Status: Active Protocol: Document 03/29/23 13:35 CGR (Rec: 03/29/23 14:10 CGR [id number]) OT-Instrumental Activities of Daily Living Deficits IADL Deficits Identified Deficits Home Safety Awareness Awareness of Need for Assistance at Home Decreased Awareness Ability to Problem Solve Emergency Unable to Problem Solve Situations Medication Management Medication Management Comments concerns regarding pt's ability to perform IND. Per notes, pt's neighbor may assist with her medication management. Money Management Money Management Comments concerns regarding pt's ability to perform IND. Per notes, pt has assistance with money management from a friend . Meal Preparation Meal Preparation Comments concerns regarding pt's ability to perform IND. Pt does have care that comes in to the home to assist. Powerhouse Attendant Powerhouse Attendant Comments concerns regarding pt's ability to perform IND. Driving Driving Concerns Identified Regarding Safety Driving Comments Pt states she does not drive at baseline. Pt's neighbor drives. M6 OT- IP Functional Cognition Start: 03/29/23 13:35 Freq: Status: Active Protocol: Document 03/29/23 13:35 CGR (Rec: 03/29/23 14:10 R [id number]) Cognitive Factors Limiting Selfcare Function Cognitive Ability Level of Alertness Alert Patient Orientation Name,Month,Year,Day of Week, Place,Situation Ability to Follow Commands Able to Follow One Step Commands with Increased Time, Able to Follow One Step Commands with Repetition Cognitive Tests SLUMS Pt participated in the SLUMS assessment scoring a 21/30. Pt was able to state the day of the week, the year, and the state. She was able to do simple addition but not subtraction, she named 8 animals in one minute, and was able to recall 1/5 objects stated earlier in the testing. Pt was able to perform number sequencing backwards for a 3 number set but not for a 4 number set. Pt was able to draw a clock and harjit the time as well as identify the largest object and harjit the triangle with an X. Pt answered all of the listening comprehension questions correctly. Cognitive Comments Cognitive Assessment Comments Pt scored a 21/30 indicating that the pt has a mild neurocognitive disorder. However, throguhout the session with this conventional mortgage underwriter, it appears that the patient is more impaired than her SLUMS score indicates. 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 OT- Vision and Hearing OT- Hearing Assessment OT- Hearing Assessment Hearing Impaired OT- Vision Assessment Visual Acuity Glasses All The Time Visual Attentiveness WFL Occular Pursuits WFL Visual Convergence WFL M7 OT- IP Mobility and Balance Start: 03/29/23 13:35 Freq: Status: Active Protocol: Document 03/29/23 13:35 CGR (Rec: 03/29/23 14:10 R [id number]) OT- Bed Mobility Assessment Supine to Sit Supine to Sit Assist Total Assistance,1 Person Assistance,2 Person Assistance Scooting Scooting to Edge of Bed Total Assistance,1 Person Assistance,2 Person Assistance OT-Transfer Assessment Sit to and From Stand Sit to and from Stand Minimal Assistance,2 Person Assistance Transfers Transfer Ability Minimal Assistance,2 Person Assistance Technique Transfer Destination Bed,Chair Transfer Technique Stand Step Pivot Devices Transfer Assistive Devices Gait Belt,Front Wheeled Walker Comments Mobility Comments Pt stood once and returned to sitting. Then stood again and transfered to chair. Total assist for scooting back in the chair. OT- Gait Assessment Comments Gait Ability Comments not performed OT- Balance Assessment Sitting Balance and Reactions Static Sitting Balance Ability Good Dynamic Sitting Balance Ability Good M8 OT- IP Objective Assessments Start: 03/29/23 13:35 Freq: Status: Active Protocol: Document 03/29/23 13:35 CGR (Rec: 03/29/23 14:10 CGR [id number]) OT Gross Range of Motion Upper Extremity Range of Motion ROM Impairments Pt has limited movement to the L hand from arthritic changes . OT Strength Comments Strength Comments not assessed durring session d /t time restrictions and pt's R rib pain. OT- Coordination Assessment Comments Coordination Comments not assessed durring session d /t time restrictions and pt's R rib pain. OT Sensation Assessment Edema Edema Absent M9 OT- IP Assessment and Plan Start: 03/29/23 13:35 Freq: Status: Active Protocol: Document 03/29/23 13:35 CGR (Rec: 03/29/23 14:10 CGR [id number]) OT Summary Assessment and Plan Potential Rehabilitation Potential Good Analytic Complexity at Evaluation Moderate Summary OT Impairments Pain,Strength,Balance, Functional Cognition, Functional Mobility,Grooming, Dressing,Toileting,Bathing, Toilet Transfers,Shower Transfers,Activity Tolerance Progress Towards Goals Slow Progress due to Pain,Slow Progress due to Cognition Assessment Summary Pt presents as a moderate complexity evaluation s/p admit for fall with rib fx. pt needed significant assist for bed mobility but then transferred to the chair with little assist. Pt needs extra time for tangential thinking and pt is very loquacious. Pt will benefit from SNF upon discharge. Goals Grooming Goal Independent Dressing Goal Independent Toileting Goal Independent Bathing Goal Independent Toilet Transfer Goal Independent Shower Transfer Goal Independent Days to Meet Goals 30 Frequency of Treatment Frequency Of Treatment Once a Day Treatment Plan OT Treatment Plan ADL Training,Functional Cognition Training,Functional Mobility,Patient/Family Education,Discharge Planning Other Treatment Recommendations and Next ADLs seated in chair, or up at Treatment Focus sink if able. Discharge Recommendations OT Discharge Recommendations SNF Rehab Transportation Needs at Discharge Wheelchair/Cabulance
--- NOTE | 2023-03-29 11:55 | PT.IIE ---
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 Mobility and Gait Pt was MOD I with 4ww at baseline. Activities of Daily Living and IADL's Pt states she is IND in all ADLs and gets assist from [facility] 3 times a week from 1 -5pm. They assist with bathing and cooking. Pt states she requires loose clothing and extra time for dressing. Social History Household Members none Living Arrangements House Number of Floors (Floors) One Floor Number of Stairs To Enter/Railing? 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 M2 PT-IP Current Condition Start: 03/29/23 08:54 Freq: NEEDED Status: Active Protocol: Document 03/29/23 11:55 AW (Rec: 03/29/23 12:59 AW [id number]) Physical Therapy Current Condition Current Condition Evaluation Date 03/29/23 Treatment Diagnosis multiple falls; 9th right rib fracture; impaired mobility and gait Onset Date 03/27/23 M3 PT-IP Subjective Start: 03/29/23 08:54 Freq: NEEDED Status: Active Protocol: Document 03/29/23 11:55 AW (Rec: 03/29/23 12:59 AW [id number]) Subjective Physical Therapy Visit Type Type Initial Evaluation Visit Start Time 11:20 Visit Stop Time 11:55 Total Visit Minutes 35 Notes SPT Caterina Salcido and OT were present. Physical Therapy Visit Comments Patient Comments Pt was very tangential in conversation, difficult to keep on track, and confused. Therapy Pain Assessment Pain When Pain Assessed During Mobility Pain Present Pain Present Pain Reported Location Right chest / back/shoulder Scale Used not quantified Description With Movement Pain Behaviors Calling Out,Facial Grimacing, Guarding,Wincing Pain Management Techniques Distraction,Modification of Treatment,Re-positioning M4 PT-IP Mobility and Gait Start: 03/29/23 08:54 Freq: NEEDED Status: Active Protocol: Document 03/29/23 11:55 AW (Rec: 03/29/23 12:59 AW [id number]) PT-Bed Mobility Assessment Supine to Sit Supine to Sit Maximum Assistance,Head of Bed Elevated,Bedrails Scooting Scooting to Edge of Bed Maximum Assistance PT-Transfer Assessment Sit to and From Stand Sit to and from Stand Minimal Assistance,2 Person Assistance,Use of Upper Extremities Equipment Transfer Assistive Device Gait Belt,Front Wheeled Walker Orthotic/Prosthetic Devices or Brace: No Transfers Transfer Destination Chair Transfer Technique Stand Step Pivot Transfer Ability Level of Assist Minimal Assistance,2 Person Assistance,Use of Upper Extremities Comments Mobility Comments Pt was lying in bed as PT and SPT arrived. Pt cried out in pain with all movement toward EOB, ultimately requiring max assist to transition to dangling. Sitting balance was poor as pt sat with excessive trunk flexion and posterior lean, requiring mod assist initially with improvement to SBA/CGA after several minutes. Pt stood to FWW with min A x 2 for safety, PT and OT providing support and blocking both feet to keep from sliding forward. Pt had right knee buckling after 10 seconds and sat impulsively on the bed. Pt reported increase in right sciatica pain during standing. Pt stood again min A x 2 and used FWW for transfer to the chair. Pt reported 10/ 10 pain during transfer. PT and SPT assisted pt to slide her hips back on the chair where she was left with call light in reach. Gait Assessment Gait Gait Assistance Required: Minimum Assistance,2 Person Assist Distance (Feet) 2 Assistive Devices Assistive Device Gait Belt,Front Wheeled Walker Orthotic/Prosthetic Devices or Brace: No Gait Deviations General Gait Pattern Antalgic,Decreased Stride Length,Decreased Feet Clearance,Flexed Trunk,Wide Based Gait Factors Limiting Gait Function Factors Limiting Gait Function Decreased Activity Tolerance, Decreased Strength,Difficulty Following Directions,Pain,Poor Balance,Poor Safety Awareness Comments Gait Comments Steps taken during transfer only. See mobility comments for details. PT-Balance Assessment Sitting Balance and Reactions Static Sitting Balance Ability Fair Dynamic Sitting Balance Ability Poor Standing Balance and Reactions Static Standing Balance Ability Fair Dynamic Standing Balance Ability Poor Device Used FWW M5 PT-IP Objective Assessments Start: 03/29/23 08:54 Freq: NEEDED Status: Active Protocol: Document 03/29/23 11:55 AW (Rec: 03/29/23 12:59 AW [id number]) Orientation Orientation/Cognition Level of Alertness Confusional State Orientation Name,Place,Situation Safety Awareness Decreased Safety Awareness Memory Description Short Term Impaired Gross Range of Motion Lower Extremity ROM Assessment Within Functional Limits Strength Lower Extremity Strength Hip 3-/5 Knee 4-/5 Ankle 4-/5 Sensation Assessment Sensation Gross Sensation WNL Comments Sensation Comments Pt denied sensation disturbance on limited exam Muscle Tone Muscle Tone WNL Yes Other Assessments Other Other Assessments Vision is impaired with notable dysconjugate gaze and tracking. M6 PT-IP Treatment Start: 03/29/23 08:54 Freq: NEEDED Status: Active Protocol: Document 03/29/23 11:55 AW (Rec: 03/29/23 12:59 AW [id number]) Physical Therapy Treatment Education Education Provided Safety M7 PT-IP Assessment and Plan Start: 03/29/23 08:54 Freq: NEEDED Status: Active Protocol: Document 03/29/23 11:55 AW (Rec: 03/29/23 12:59 AW [id number]) PT Summary Assessment and Plan Potential Rehabilitation Potential Good Status of Condition at Evaluation Evolving Summary Impairments Pain,Strength,Balance, Cognition,Bed Mobility, Transfers,Gait,Activity Tolerance Assessment Summary Michela is an 87 yo woman admitted after a ground level fall resulting in minimally displaced 9th rib fracture. She has been evaluated by ED four times this year and admitted twice. PLOF: Pt was modified independent with use of a walker. Her falls frequency has increased this year as evidenced by multiple ED encounters. CLOF: Pt's mobility is affected by acute rib pain and chronic back/leg pain. She is requiring quite a bit of assist and encouragement to mobilize. She is clearly unsafe to manage her home environment independently. PT recommends SNF rehab for strengthening and functional mobility but ultimately, pt will likely require assisted living or other long-term care arrangement. Goals Bed Mobility Goal Standby Assistance Transfer Goal Standby Assistance,Front Wheeled Walker Gait Goal Standby Assistance,Front Wheel Walker Gait Distance 75 Days to Meet Goals 10 Frequency of Treatment Frequency Of Treatment Once a Day Treatment Plan Physical Therapy Treatment Plan Bed Mobility Training,Transfer Training,Gait Training, Therapeutic Exercise,Balance Retraining,Discharge Planning, Hot or Cold Pack,Neuromuscular Re-ed Other Recommendations and Next Treatment transfers, gait with FWW as Focus tolerated Recommendations To Nursing Amount of Assist Needed 2 Person Assist Discharge Recommendations PT Discharge Recommendations SNF Rehab Transportation Needs at Discharge Wheelchair/Cabulance
--- NOTE | 2023-03-29 15:04 | PM.DS.1 ---
History of Present Illness History of Present Illness Chief complaint: fall, right shoulder pain Narrative: Per history and physical: Ms. Cao is an 87W with PMH CAD s/p NSTEMI, CVA with left side deficit, hypothyroid, HTN, HL, and chronic back/sciatica pain who presents to the hospital after a fall. She states she was ambulating to use the bathroom and tripped and fell. She thinks she fell and hit the toilet with the right side of her body. She was initially complaining of rib pain in the ED per notes. However to me she is [facility] more concerned about her sciatica pain. She notes she has chronic lower back pain that radiates down her right leg. It is often quite painful, and then pain today is not particularly worse than usual for her. She did not hit her head or lose consciousness. She has no shortness of breath. She does have some nausea. In the ED workup was done, vitals notable for afebrile, heart rate 60s, blood pressure 150s/90s, 98% room air. Labs reviewed by me and notable for WBC 7.4, hgb 13.1, plts 255. Na 125, BUN 36, creatinine 1.53. Rib xray showed no acute process. 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 Per ED they attempted to mobilize her but she wsa in too much pain and she was admitted for pain control. Discharge Providers Provider Date of admission: 03/27/23 17:40 Discharge Date: 03/29/23 Primary care physician: Idalia Bashir MD Consults: 03/27/23 19:05 Consult to Discharge Planning Routine Comment: Consult to Occupational Therapy Evaluate & Treat Comment: Physician Instructions: Evaluate and treat Consult to Physical Therapy Evaluate & Treat Comment: Physician Instructions: Evaluate and Treat Discharge provider: Ree Don MD Summary Hospital Course Hospital Course: 77-year-old female with coronary artery disease status post NSTEMI, previous stroke (x2) with left-sided deficit, Eve's thyroiditis, right carotid artery stenosis, chronic right-sided sciatica, hypertension, hyperlipidemia, who was admitted under observation status on March 27 after a fall with sustaining a right 9th rib fracture, minimally displaced.? In the emergency department, she reported her pain was too severe to get up from the bed.? She lives alone with some help 4 days per week, but has no local family or friends who could stay with her.? Therefore she was admitted for further monitoring. Yesterday, her DPOA drove up from [facility]. She met with the care management team to discuss possibility of discharging to half-way facility with private pay status. Reported an acute change in her mobility approximately 5 days prior to admission when her sciatica which is chronic acutely flared up. She was having difficulty getting out of bed. She subsequently fell and sustained a right 9th rib fracture. Unfortunately, even with improving pain management, she was not felt to be safe to discharge home. She is unable to get herself out of bed. Discussed she is had 4 visits to the hospital since December 19. She is had 2 hospitalizations with falls involved. She is beginning to fail at home. I strongly urged her to consider an assisted living facility at discharge for her safety. She plans to discuss this further with her DPOAs. At the time of discharge, patient is in stable condition. She is discharging to half-way for ongoing physical therapy, occupational therapy, and rehab. During her hospitalization, she did have a slums assessment performed with a score of 21/30. This suggests at least moderate cognitive impairment. I do have concerns for her capacity to make appropriate decisions. As noted, she does have both a DPOA for healthcare and a DPOA for finances. They are both actively involved Status at Discharge Functional status at discharge: bed bound Overall status at discharge: patient is not back to baseline Exam Vital Signs (past 8 hours): - 03/29/23 08:00 03/29/23 09:58 Temperature 97.0 F L Pulse Rate 75 Respiratory Rate 17 Blood Pressure 116/47 L Pulse Oximetry 95 94 Oxygen Delivery Method Room Air Oxygen Flow Rate 0 Oxygen Delivery Method Room Air Oxygen Flow Rate 0 Narrative Exam Narrative: GEN:? Tearful anxious elderly female, mildly forgetful, Alert and oriented x 3 HEENT:NC, Face symmetric CHEST: Respiratory excursions symmetric, CTAB CV: RRR, no M/R/G ABD: Soft, NT/ND, BT present in all 4 quadrants, no organomegaly or masses EXTR: warm, well perfused, no C/C/E SKIN: warm and dry, no rash NEURO: Alert and oriented x 3, mildly forgetful as noted Objective Labs 03/29/23 06:44 03/29/23 06:44 Labs: Laboratory Results - last 24 hr 03/29/23 03/29/23 06:44 06:44 WBC 7.3 RBC 3.88 L Hgb 11.7 L Hct 34.7 L MCV 89.6 MCH 30.2 MCHC 33.7 RDW 14.0 Plt Count 209 Neut % (Auto) 61.6 Lymph % (Auto) 23.5 L [place] % (Auto) 10.3 Eos % (Auto) 4.3 H Baso % (Auto) 0.3 Neut # (Auto) 4500 Lymph # (Auto) 1700 [place] # (Auto) 800 Eos # (Auto) 300 Baso # (Auto) 0 Sodium 135 L Potassium 4.7 Chloride 104 Carbon Dioxide 26 BUN 29 H Creatinine 1.27 H Estimated GFR 41 L BUN/Creatinine Ratio 22.8 H Glucose 129 H Calcium 8.7 PFSH Medical History Chronic sciatica of right side CVA (cerebral vascular accident) Degenerative disc disease Essential hypertension History of CVA (cerebrovascular accident) History of non-ST elevation myocardial infarction (NSTEMI) Hyperlipidemia 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 Lumbar spinal stenosis Osteopenia Osteopenia Stenosis of right carotid artery greater than 50% Surgical History History of bilateral breast reduction surgery History of cataract extraction with lens replacement History of cholecystectomy History of hysterectomy Family History Other Adopted (not a blood relative) Social History household members: none Smoking Status: Former smoker alcohol intake: current Discharge Plan Discharge Plan Patient Disposition: SNF Transfer to: [facility] Under care of provider: Facility Transportation: Facility vehicle Provider Discharge Comment: You are being admitted to [facility] for physical and occupational therapy to improve your strength and mobility. I strongly recommend that you work with your family to get into an assisted living facility. You have had 4 visits to the hospital since November. It is no longer safe for you to be home alone. I certify the postop hospital half-way care is medically necessary on a continuing basis for any conditions for which he/ she received care during this hospitalization.: Yes The receiving facility has agreed to accept transfer and provide medical treatment.: Yes Discharge orders & Medications Prescriptions: New acetaminophen 325 mg Tablet 975 mg PO TID Qty: 60 0RF tramadol 50 mg Tablet 50 mg PO Q8H PRN (Reason: pain) Qty: 30 0RF lidocaine 5 % Adhesive Patch,Medicated 1 patch topical BEDTIME Qty: 15 0RF sennosides [senna] 8.6 mg Tablet 17.2 mg PO BEDTIME Qty: 30 0RF nystatin [Nystop] 100,000 unit/gram Powder 1 applic topical BID Qty: 45 0RF oxycodone 5 mg tablet 2.5 mg PO Q8H PRN (Reason: pain) Qty: 20 0RF Continued oxybutynin chloride 5 mg tablet 5 mg PO BID rosuvastatin 40 mg tablet 40 mg PO BEDTIME clopidogrel 75 mg tablet 75 mg PO DAILY gabapentin 300 mg capsule See Rx Instructions .ROUTE .COMPLEX Rx Instructions: Take one 300 mg capsule in AM, Take one 300 mg capsule at Noon, Take two 300 mg capsules at HS Discontinued tramadol 50 mg tablet 50 mg PO Q8H PRN (Reason: pain) Qty: 20 0RF Follow up/Referrals: Idalia Bashir MD [Primary Care Provider] - Discharge Health Status Multidrug resistant organism: No MDRO Diet/Activity/Treatments Diet: Regular Food texture: Regular Activity: Up with assist; high fall risk Oxygen: N/A Special Rehabilitation Services Reason for rehabilitation: Recovery r/t decondition and Other Rehab type: Physical therapy and Occupational therapy Visit Report/Discharge Packet Stand Alone Forms: Patient Portal/API, Stroke Signs & Symptoms Discharge Data Primary Care Provider: Idalia Bashir Attending Provider: Ree Don Admit Date/Time: 03/27/23 17:40 Quality VTE Deep Vein Thrombosis/Pulmonary Embolism Present on Admission: No
== END 2023-03-29 15:10 ==
LOC: ED 17:27 → AC 17:41
PROVIDERS: Admitting Provider Family Medicine; Emergency Provider Emergency Medicine; PCP Internal Medicine; Referring Provider Emergency Medicine; Visit Provider Family Medicine
DX: S22.31XA Fracture of one rib, right side, initial encounter for closed fracture (principal); W18.30XA Fall on same level, unspecified, initial encounter; R53.1 Weakness; N17.9 Acute kidney failure, unspecified; I12.9 Hypertensive chronic kidney disease with stage 1 through stage 4 chronic kidney disease, or unspecified chronic kidney disease; N18.30 Chronic kidney disease, stage 3 unspecified; I69.398 Other sequelae of cerebral infarction; E03.9 Hypothyroidism, unspecified; G89.29 Other chronic pain; M54.31 Sciatica, right side
CPT/HCPCS: 36415; 51701; 71101; 71250; 80048; 80053; 81001; 82550; 83690; 84484; 85025; 93005; 93010; 96372; 96374; 96375; 97129; 97162; 97166; 97530; 99285; G0378; J1170; J1650; J1885; J2270

== ENCOUNTER → 2023-04-02 13:06 | Outpatient (ROUT) | payer MEDICARE, OTHER, SELFPAY ==
[2023-03-27 19:31] VITALS: BMI 38.0
[2023-04-02 13:13] LABS: Appearance Urine UA SL CLOUDY; Bilirubin Urine UA NEGATIVE (NEGATIVE); Color Urine UA YELLOW; Glucose Urine UA NEGATIVE (Negative); Ketones Urine UA NEGATIVE (NEGATIVE); Leukocyte Esterase Urine UA 1+ (NEGATIVE); Nitrite Urine UA NEGATIVE (Negative); Occult Blood Urine UA NEGATIVE (Negative); Protein Urine UA TRACE (Negative)
[2023-04-02 13:14] LABS: pH Urine UA 5.5 (4.5-8.0)
[2023-04-02 13:25] LABS: Bacteria Urine Many (>30); Culture Indicated Urine Specimen Cultured; RBC Urine None Seen (0-5/HPF); Squamous Epithelial Cell Urine 5-10 /HPF (0-5/HPF); WBC Urine 30-100/HPF (0-5/HPF)
== END ==
PROVIDERS: PCP Internal Medicine; Visit Provider Nurse Practitioner Family
DX: S22.31XD Fracture of one rib, right side, subsequent encounter for fracture with routine healing (principal); J84.10 Pulmonary fibrosis, unspecified; N17.9 Acute kidney failure, unspecified; N18.30 Chronic kidney disease, stage 3 unspecified; E03.9 Hypothyroidism, unspecified
CPT/HCPCS: 81001; 87077; 87086; 87147; 87186

== ENCOUNTER 2024-04-08 12:36 | Emergency (ER) | payer MEDICARE, OTHER, SELFPAY ==
[2023-03-27 19:31] VITALS: BMI 38.0
[2024-04-08] VITALS (10 sets, daily range): BP systolic 118–140; BP diastolic 56–65; PULSE 62–75; RESP 17–33; TEMP 36.4; O2SAT 93–96; BMI 39.2
--- NOTE | 2024-04-08 12:43 | EKG_ITS ---
[address] [address] Test Date: 2024-04-08 Pat Name: Michela Cao Department: Room: Gender: Female Framing Inspector: LAXMI : [id number] Requested By: Order Number: [id number] Reading MD: Marcus Buchanan MD Measurements Intervals Cherry Rate: 64 P: 39 IN: 208 QRS: 19 QRSD: 84 T: 44 QT: 458 QTc: 472 Interpretive Statements Normal sinus rhythm Electronically Signed On 04-09-2024 12:04:04 PDT by Marcus Buchanan MD
--- NOTE | 2024-04-08 12:43 | DI.RAD.S_ITS ---
PROCEDURE: XR CHEST 1V INDICATIONS: chest pain TECHNIQUE: One view of the chest was acquired. COMPARISON: [facility], CR, XR CHEST 2V, 01/19/2023, 15:44. [facility], CR, XR CHEST 1V, 12/19/2022, 11:52. FINDINGS: Surgical changes and devices: None. Lungs and pleura: For mildly interstitial prominence. Low lung volumes. No drainable effusions. Mediastinum: Cardiomediastinal contours are unchanged. Borderline heart size. Bones and chest wall: Degenerative changes. IMPRESSION: Mildly prominent interstitium, possibly edema or atypical infection. Consider future imaging surveillance to assess for resolution. Dictated by: Bret Condon M.D. on 04/08/2024 at 13:39 Approved by: Bret Condon M.D. on 04/08/2024 at 13:40
--- NOTE | 2024-04-08 12:47 | DI.RAD.S_ITS ---
PROCEDURE: XR SHOULDER RT MIN 2V INDICATIONS: Right shoulder pain after fall TECHNIQUE: 3 views of the shoulder were acquired. COMPARISON: None. FINDINGS: Bones: [id number] degenerative changes of the acromioclavicular and glenohumeral joints. No acute displaced fracture or dislocation. Soft tissues: No suspicious calcifications. IMPRESSION: Degenerative changes. No acute radiographic abnormality. If there is high concern for occult injury, consider repeat radiography or cross-sectional imaging. Dictated by: Bret Condon M.D. on 04/08/2024 at 13:41 Approved by: Bret Condon M.D. on 04/08/2024 at 13:42
--- NOTE | 2024-04-08 12:51 | ED.CHESTPAIN ---
HPI - Chest Pain General Chief Complaint: Chest Pain Stated Complaint: Chest Pressure Time Seen by Provider: 04/08/24 12:45 Source: patient and EMS Mode of arrival: EMS History of Present Illness HPI narrative: 88-year-old female presents by EMS from [facility] living facility for central chest pain. Patient states that she woke up with vague chest discomfort but went about her day. This afternoon when she was trying to get off the toilet she fell backwards, hitting her shoulder against the wall. Denies hitting her head, denies loss of consciousness, denies use of blood thinners. Staff at [facility] called EMS for evaluation. They administered aspirin and nitroglycerin EN route. Related Data Home Medications Medication Instructions Recorded Confirmed rosuvastatin 40 mg tablet 40 mg PO BEDTIME 05/24/19 03/15/24 clopidogrel 75 mg tablet 75 mg PO DAILY 03/27/23 03/15/24 gabapentin 300 mg capsule See Rx Instructions .Route .COMPLEX 03/27/23 03/15/24 Previous Rx's Medication Instructions Recorded acetaminophen 325 mg tablet 975 mg (3 x 325 mg) PO TID #60 tabs 03/29/23 lidocaine 5 % topical patch 1 patch topical BEDTIME #15 ea 03/29/23 nystatin 100,000 unit/gram topical 1 applic topical BID #45 grams 03/29/23 powder (Nystop) oxycodone 5 mg tablet 2.5 mg (1/2 x 5 mg) PO Q8H PRN 03/29/23 pain #20 tabs sennosides 8.6 mg tablet (senna) 17.2 mg (2 x 8.6 mg) PO BEDTIME 03/29/23 #30 tabs tramadol 50 mg tablet 50 mg PO Q8H PRN pain #30 tabs 03/29/23 ospemifene 60 mg tablet (Osphena) 60 mg PO DAILY #90 tabs 03/15/24 cephalexin 500 mg capsule 500 mg PO TID #75 caps 03/17/24 vibegron 75 mg tablet (Gemtesa) 75 mg PO DAILY #30 tabs 03/21/24 Allergies Allergy/AdvReac Type Severity Reaction Status Date / Time No Known Drug Allergies Allergy Verified 04/08/24 12:45 Patient History Medical History Postmenopausal atrophic vaginitis Functional incontinence Urge incontinence Degenerative disc disease Lumbar spinal stenosis Stenosis of right carotid artery greater than 50% Chronic sciatica of right side Hyperlipidemia Osteopenia History of non-ST elevation myocardial infarction (NSTEMI) 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 Osteopenia Essential hypertension History of CVA (cerebrovascular accident) CVA (cerebral vascular accident) Surgical History History of hysterectomy History of cholecystectomy History of bilateral breast reduction surgery History of cataract extraction with lens replacement Family History Other Adopted (not a blood relative) Social History household members: none Smoking Status: Former smoker alcohol intake: current Smoking Status: Former smoker alcohol intake frequency: holidays/special occasions only Substance Use Type: marijuana Exam Initial Vital Signs Initial Vital Signs: Vital Signs Pulse Rate 75 04/08/24 12:41 Pulse Oximetry 93 04/08/24 12:41 Const: Awake, alert, no acute distress, appears frail, debilitated, chronically unwell Cardiac: regular rate, regular rhythm, generalized tenderness to palpation along anterior chest wall RESP: unlabored, clear bilaterally, no wheezing GI: Soft, nontender, nondistended, no rebound, no guarding MSK: Atraumatic, full range of motion, pulses equal Skin: Warm, Dry, intact, no rashes Neuro: AO x3, CN II-XII grossly intact, moves all extremities Course Orders Ordered: ED Orders 04/08/24 12:37 Complete Blood Count AUTO DIFF Stat Comprehensive Metabolic Panel Stat Lipase Stat Magnesium Stat PTT Partial Thromboplastin Du Stat Prothrombin Time INR Stat Troponin & CK Cardiac Panel Stat 04/08/24 12:43 XR chest 1V Stat EKG-12 Lead Stat 04/08/24 12:47 XR shoulder RT min 2V Stat 04/08/24 14:53 Trop I [Troponin I] Stat Discontinued Medications Aspirin (Aspirin 81 Mg Chew Tab) 324 mg PO NOW ONE Stop: 04/08/24 12:44 Last Admin: 04/08/24 12:44 Dose: Not Given Documented By: RL Vital Signs Vital signs: Vital Signs - 8 hr 04/08/24 12:41 04/08/24 12:45 04/08/24 13:12 Temperature 97.6 F Pulse Rate 75 75 75 Respiratory Rate 18 Blood Pressure 121/56 L Pulse Oximetry 93 94 94 Oxygen Delivery Method Room Air 04/08/24 13:14 04/08/24 13:14 04/08/24 13:30 Temperature Pulse Rate 65 62 Respiratory Rate 21 27 H Blood Pressure 140/65 Pulse Oximetry 95 94 Oxygen Delivery Method 04/08/24 13:31 04/08/24 13:31 04/08/24 14:00 Temperature Pulse Rate 62 63 Respiratory Rate 33 H 28 H Blood Pressure 118/58 L Pulse Oximetry 94 93 Oxygen Delivery Method 04/08/24 14:01 04/08/24 14:01 04/08/24 14:30 Temperature Pulse Rate 64 68 Respiratory Rate 31 H 21 Blood Pressure 126/56 L Pulse Oximetry 94 94 Oxygen Delivery Method MDM - Chest Pain Lab Data 04/08/24 12:37 04/08/24 12:37 Labs: Lab Results 04/08/24 04/08/24 Range/Units 12:37 14:53 WBC 6.9 (4.5-11.0) X10^3/uL RBC 4.60 (4.0-5.2) X10^6/uL Hgb 12.6 (12.0-16.0) g/dL Hct 38.4 (36-46) % MCV 83.5 (80-100) fL MCH 27.5 (26-34) PG MCHC 32.9 (30-36) % RDW 16.4 H (11.6-14.8) % Plt Count 190 (150-400) X10^3/uL Neut % (Auto) 45.2 L (50-75) % Lymph % (Auto) 32.0 (25-40) % [place] % (Auto) 11.4 (3-14) % Eos % (Auto) 11.1 H (2-4) % Baso % (Auto) 0.3 (0-2) % Neut # (Auto) 3100 (8134-7468) /uL Lymph # (Auto) 2200 (6218-1178) /uL [place] # (Auto) 800 (0-900) /uL Eos # (Auto) 800 H (0-450) /uL Baso # (Auto) 0 (0-100) /uL PT 10.7 (9.4-12.5) SECONDS INR 0.9 (0.9-1.3) APTT 35 (25.1-36.5) SECONDS Sodium 141 (137-145) mmol/L Potassium 3.7 (3.4-5.1) mmol/L Chloride 107 (98-107) mmol/L Carbon Dioxide 28 (22-32) mmol/L BUN 24 H (7-17) mg/dL Creatinine 1.41 H (0.52-1.04) mg/dL Estimated GFR 36 L (>60) mL/min BUN/Creatinine Ratio 17.0 (6-22) Glucose 125 H (80-110) mg/dL Calcium 8.3 L (8.4-10.2) mg/dL Magnesium 2.4 H (1.6-2.3) mg/dL Total Bilirubin 0.5 (0.2-1.3) mg/dL AST 23 (14-36) IU/L ALT 10 (<35) IU/L Alkaline Phosphatase 66 (38-126) U/L Total Creatine Kinase 191 H (30-135) U/L Troponin I < 0.012 < 0.012 (0.01-0.034) ng/mL Total Protein 8.2 (6.3-8.2) g/dL Albumin 4.1 (3.5-5.0) g/dL Globulin 4.1 (1.7-4.1) g/dL Albumin/Globulin Ratio 1.0 (1.0-2.8) Lipase 107 (23-300) U/L Imaging Data Chest x-ray: Radiologist's Impression: PROCEDURE: XR CHEST 1V INDICATIONS: chest pain TECHNIQUE: One view of the chest was acquired. COMPARISON: [facility], CR, XR CHEST 2V, 01/19/2023, 15:44. [facility], CR, XR CHEST 1V, 12/19/2022, 11:52. FINDINGS: Surgical changes and devices: None. Lungs and pleura: For mildly interstitial prominence. Low lung volumes. No drainable effusions. Mediastinum: Cardiomediastinal contours are unchanged. Borderline heart size. Bones and chest wall: Degenerative changes. IMPRESSION: Mildly prominent interstitium, possibly edema or atypical infection. Consider future imaging surveillance to assess for resolution. Dictated by: Bret Condon M.D. on 04/08/2024 at 13:39 Approved by: Bret Condon M.D. on 04/08/2024 at 13:40 Extremity x-ray #1: Radiologist's Impression: PROCEDURE: XR SHOULDER RT MIN 2V INDICATIONS: Right shoulder pain after fall TECHNIQUE: 3 views of the shoulder were acquired. COMPARISON: None. FINDINGS: Bones: [id number] degenerative changes of the acromioclavicular and glenohumeral joints. No acute displaced fracture or dislocation. Soft tissues: No suspicious calcifications. IMPRESSION: Degenerative changes. No acute radiographic abnormality. If there is high concern for occult injury, consider repeat radiography or cross-sectional imaging. Dictated by: Bret Condon M.D. on 04/08/2024 at 13:41 Approved by: Bret Condon M.D. on 04/08/2024 at 13:42 MDM Narrative Medical decision making narrative: Patient with shoulder pain and chest pain after falling backwards on the toilet. Denies any other accident or injury. No deformity palpated and chest wall or shoulders. Patient was able to move all extremities without pain. EKG normal sinus rhythm without concerning ischemic findings. Laboratory work and imaging reviewed. Chest x-ray shows mildly prominent interstitium. Similar findings seen on chest CT 1 year ago, patient suspected to have pulmonary fibrosis. In any rate patient has no leukocytosis or respiratory symptoms at this time, felt unlikely to be infection or edema. Shoulder x-ray negative for acute traumatic findings. Troponins undetectable x2. Patient reassessed, resting comfortably in bed with family member at chair nearby. Patient eager to go home. Discharge Plan Departure Patient Disposition: Home Clinical Impression: Chest pain Instructions: DI for Chest Pain Activity Restrictions/Additional Instructions: Follow up as needed with your primary care doctor Prescriptions: No Action cephalexin 500 mg capsule 500 mg PO TID Qty: 75 0RF Rx Instructions: Take one capsule by mouth 3 times a day for 5 days then 1 tablet a day at bedtime for 60 days Gemtesa 75 mg tablet 75 mg PO DAILY Qty: 30 3RF rosuvastatin 40 mg tablet 40 mg PO BEDTIME clopidogrel 75 mg tablet 75 mg PO DAILY gabapentin 300 mg capsule See Rx Instructions .ROUTE .COMPLEX Rx Instructions: Take one 300 mg capsule in AM, Take one 300 mg capsule at Noon, Take two 300 mg capsules at HS acetaminophen 325 mg Tablet 975 mg PO TID Qty: 60 0RF tramadol 50 mg Tablet 50 mg PO Q8H PRN (Reason: pain) Qty: 30 0RF lidocaine 5 % Adhesive Patch,Medicated 1 patch topical BEDTIME Qty: 15 0RF sennosides [senna] 8.6 mg Tablet 17.2 mg PO BEDTIME Qty: 30 0RF nystatin [Nystop] 100,000 unit/gram Powder 1 applic topical BID Qty: 45 0RF oxycodone 5 mg tablet 2.5 mg PO Q8H PRN (Reason: pain) Qty: 20 0RF Osphena 60 mg tablet 60 mg PO DAILY Qty: 90 3RF Rx Instructions: must administer with food, preferably a high-fat meal Referrals: Idalia Bashir MD [Primary Care Provider] - Stand Alone Forms: Patient Portal/API
[2024-04-08 12:58] LABS: Add Manual Diff / Slide Review NO; Basophils Absolute Auto 0 /uL (0-100); Basophils Percent Auto 0.3 % (0-2); Eosinophils Absolute Auto 800 /uL (0-450); Eosinophils Percent Auto 11.1 % (2-4); Hematocrit 38.4 % (36-46); Hemoglobin 12.6 g/dL (12.0-16.0); Lymphocytes Absolute Auto 2200 /uL (1100-4500); Mean Corpuscular HGB Conc 32.9 % (30-36); Mean Corpuscular Hemoglobin 27.5 PG (26-34); Mean Corpuscular Volume 83.5 fL (80-100); Monocytes Absolute Auto 800 /uL (0-900); Monocytes Percent Auto 11.4 % (3-14); Neutrophils Absolute Auto 3100 /uL (1500-7000); Neutrophils Percent Auto 45.2 % (50-75); Platelet Count 190 X10^3/uL (150-400); Red Cell Distribution Width 16.4 % (11.6-14.8); White Blood Cell Count 6.9 X10^3/uL (4.5-11.0)
[2024-04-08 13:13] LABS: INR 0.9 (0.9-1.3); Prothrombin Time 10.7 SECONDS (9.4-12.5)
[2024-04-08 13:16] LABS: PTT Partial Thromboplastin Tim 35 SECONDS (25.1-36.5)
[2024-04-08 13:18] LABS: Alanine Aminotransferase 10 IU/L (<35); Albumin 4.1 g/dL (3.5-5.0); Alkaline Phosphatase 66 U/L (38-126); Aspartate Aminotransferase 23 IU/L (14-36); Bilirubin Total 0.5 mg/dL (0.2-1.3); Blood Urea Nitrogen 24 mg/dL (7-17); Calcium 8.3 mg/dL (8.4-10.2); Carbon Dioxide 28 mmol/L (22-32); Chloride 107 mmol/L (98-107); Creatine Kinase 191 U/L (30-135); Estimated Glomerular Filt Rate 36 mL/min (>60); Globulin 4.1 g/dL (1.7-4.1); Glucose 125 mg/dL (80-110); HEMOLYSIS < 15 (0-50); Lipase 107 U/L (23-300); Magnesium 2.4 mg/dL (1.6-2.3); Potassium 3.7 mmol/L (3.4-5.1); Sodium 141 mmol/L (137-145); Total Protein 8.2 g/dL (6.3-8.2)
[2024-04-08 13:29] LABS: Troponin I < 0.012 ng/mL (0.01-0.034)
[2024-04-08 15:25] LABS: Troponin I < 0.012 ng/mL (0.01-0.034)
== END 2024-04-08 15:40 | disposition home or self-care (01) ==
PROVIDERS: Emergency Provider Emergency Medicine; Family Provider Internal Medicine; PCP Internal Medicine
DX: R07.9 Chest pain, unspecified (principal); M25.511 Pain in right shoulder; W18.30XA Fall on same level, unspecified, initial encounter
CPT/HCPCS: 36415; 71045; 73030; 80053; 82550; 83690; 83735; 84484; 85025; 85610; 85730; 93005; 93010; 99284

== ENCOUNTER 2024-05-10 10:30 | Outpatient (RCR) | payer MEDICARE, OTHER, SELFPAY ==
[2023-03-27 19:31] VITALS: BMI 38.0
--- NOTE | 2024-04-13 17:12 | ST.OPIE ---
Visit Care Team Role Provider Type Idalia Bashir MD Attending Provider Physician Family Provider Primary Care Provider Referring Provider Specialty: Internal Medicine Address: [place], [address] Email: Speech-Language Pathology Initial Evaluation [employer] Clinical Swallow Evaluation Start: 04/13/24 15:41 Freq: Status: Active Protocol: Document 04/13/24 15:56 MA (Rec: 04/13/24 15:57 MA [id number]) Clinical Swallow Evaluation Session Time Visit Start Time 15:15 Visit Stop Time 16:00 Total Visit Minutes 45 Visit Information Visit Number Initial Eval Plan of Care Dates 04/13/24-07/14/24 Insurance Information Medicare Referral Referring Provider Dr. Idalia Bashir Reason for Referral Dysphagia Setting Assessment Location Outpatient Care Visit Type Note Type Initial evaluation Next Note Type Next Note Type Treatment Note Patient Information Identification Type Name History Pt is an 88 year old female seen this date for swallow evaluation d/t referring dx of dysphagia. Pt is accompanied by her neighbor friend, Kalpana, who assisted Pt with case history information d/t Pt with mild cognitive impairment . She reports swallowing issues has been going on for about 6 months on/off, specifically having moments where food feels stuck in throat resulting in her coughing and eventually coughing up food. Pt reports it does not happen often, maybe once a week. Pt friend reports she witnessed it while they were out to breakfast at a restaurant recently where Pt was eating eggs, garcia and toast. She also reports difficulties swallowing pills and states she takes a lot of pills. She resides in an assisted living and consumes regular solids and thin liquids. PMHx significant for CVA, which she reports occurred about 12-13 years ago , kidney disease, myocardial infarction, cognitive communication deficit, mild cognitive impairment, type 2 diabetes. Subjective Observations Pt was alert and oriented and able to answer most questions, however mild confusion with friend present to assist with answering questions. Pt reports she is [place] and has vision issues. Reported by Patient/Caregiver Pain/Discomfort No Other Symptoms Difficulty swallowing pills, Difficulty swallowing solids, Food gets stuck Current Diet Regular (IDDSI 7) Baseline Feeding Method Independent in self-feeding The IDDSI Framework Protocol: IDDSI.1 Objective Assessment Mental Status Alert,Responsive,Cooperative Oral Integrity WFL Dentition Within normal limits Comment Oral motor exam revealed mild reduction in lingual and labial strength and ROM, however WFL during POC. Pt with natural dentition. Food and Liquid Trials Position During Assessment Upright (90 degrees) Liquids Trialed Thin (IDDSI 0) Solid Trials Soft & Bite-sized (IDDSI 6), Regular (IDDSI 7) Administration Type Self-feeding Oral Impairment Mildly impaired Oral Phase Comments Pt consumed matti crackers and diced peaches and 4 oz of thin water via cup. She fed self appropriately. For solids Pt demonstrated adequate bite size and rate, prolonged mastication however adequate bolus formation and control, extended ap transport, mild oral stasis. For thin water via cup, Pt exhibited adequate sip size and rate, good oral acceptance and containment. Pharyngeal Impairment Mildly impaired Pharyngeal Phase Comments Pt demonstrated no occurrences of food feeling stuck in throat or s/s of aspiration such as coughing or choking. Pt with suspected delay in swallow. Fatigue/Endurance Endurance WNL The IDDSI Framework Protocol: IDDSI.1 Findings Swallowing Function Oropharyngeal phase dysphagia Severity of Swallow Impairment Mildly impaired Prognosis Good Based on Family support Recommendations Instrumental Assessment Yes Swallowing Treatment Yes Frequency 1x/week Duration 3 months Recommended Solids Regular (IDDSI 7) Recommended Liquids Thin (IDDSI 0) Other Recommendations Pt presents with mild oropharyngeal dysphagia. ST recommends regular solids/thin liquids with the below mentioned safe swallowing strategies in place. ST also recommends referral for MBSS. Safety Precautions/Swallowing Remain upright (90 degrees) Recommendations during all oral intake,Upright position at least 30 minutes after meals,Small bites and sips when eating,Slow rate; swallow between bites, Alternate liquids and solids, Set-up assistance Medication Recommendations As Tolerated Discharge Recommendations Home Education Patient/Caregiver Education Described results of evaluation,Patient expressed understanding of evaluation, Patient expressed agreement with goals & treatment plans, Family/caregivers expressed understanding of evaluation, Family/caregivers expressed agreement with goals & treatment plans,Patient requires further education/ training,Family/caregivers require further education/ training Goals Short-term Goals STG 1: Pt will participate in MBSS in order to guide POC. STG 2: Pt will tolerate prescribed diet with <5% overt s/s of aspiration/dysphagia with use of compensatory swallowing strategies and minimal cues. STG 3: Pt will complete hyolaryngeal strengthening exercises for improved pharyngeal phase of swallow with minimal cueing with 90% accuracy. Long-term Goals LTG 1: Patient will consume safest and most efficient least restrictive diet with no clinical s/s of aspiration or dysphagia 100% of the time in order to meet primary nutrition/hydration needs.
--- NOTE | 2024-04-13 17:13 | ST.OPPOC ---
Physical, Occupational & Speech Therapy At [facility] Visit Care Team Role Provider Type Idalia Bashir MD Attending Provider Physician Family Provider Primary Care Provider Referring Provider Address: [place], [address] Speech Pathology Plan of Care Plan of Care Dates 04/13/24-07/14/[address] Idalia Bashir Patient History Pt is an 88 year old female seen this date for swallow evaluation d/t referring dx of dysphagia . Pt is accompanied by her neighbor friend, Kalpana, who assisted Pt with case history information d/t Pt with mild cognitive impairment. She reports swallowing issues has been going on for about 6 months on/off, specifically having moments where food feels stuck in throat resulting in her coughing and eventually coughing up food. Pt reports it does not happen often, maybe once a week. Pt friend reports she witnessed it while they were out to breakfast at a restaurant recently where Pt was eating eggs, garcia and toast. She also reports difficulties swallowing pills and states she takes a lot of pills. She resides in an assisted living and consumes regular solids and thin liquids. PMHx significant for CVA, which she reports occurred about 12-13 years ago, kidney disease, myocardial infarction, cognitive communication deficit, mild cognitive impairment , type 2 diabetes. Short-term Goals STG 1: Pt will participate in MBSS in order to guide POC. STG 2: Pt will tolerate prescribed diet with <5% overt s/s of aspiration/dysphagia with use of compensatory swallowing strategies and minimal cues. STG 3: Pt will complete hyolaryngeal strengthening exercises for improved pharyngeal phase of swallow with minimal cueing with 90% accuracy. Long-term Goals LTG 1: Patient will consume safest and most efficient least restrictive diet with no clinical s/s of aspiration or dysphagia 100% of the time in order to meet primary nutrition/ hydration needs. Comment: Electronically Signed by: CORNELL Mejias 04/13/24 [id number] If you are in agreement with this Plan of Care, please return a signed and dated copy. I have reviewed this Plan of Care and certify that the skilled therapy services above are required to meet the patient?s needs. Physician Signature Date Printed Name and Credentials Clinical Instructor Signature Printed Name and Credentials
--- NOTE | 2024-04-18 13:07 | ST.OPTN ---
Visit Care Team Role Provider Type Idalia Bashir MD Attending Provider Physician Family Provider Primary Care Provider Referring Provider Address: [place], [address] NET SOFTWARE ENGINEER Treatment Note NET SOFTWARE ENGINEER Treatment Note Start: 04/18/24 12:56 Freq: Status: Active Protocol: Document 04/18/24 12:57 MA (Rec: 04/18/24 13:07 MA [id number]) Speech Pathology Treatment Note Session Time Visit Start Time 12:00 Visit Stop Time 12:30 Total Visit Minutes 30 Visit Information Visit Number 2 Plan of Care Dates 04/13/24-07/14/24 Setting Treatment Setting Outpatient Care General Information Patient History Pt is an 88 year old female seen this date for swallow evaluation d/t referring dx of dysphagia. Pt is accompanied by her neighbor friend, Kalpana, who assisted Pt with case history information d/t Pt with mild cognitive impairment . She reports swallowing issues has been going on for about 6 months on/off, specifically having moments where food feels stuck in throat resulting in her coughing and eventually coughing up food. Pt reports it does not happen often, maybe once a week. Pt friend reports she witnessed it while they were out to breakfast at a restaurant recently where Pt was eating eggs, garcia and toast. She also reports difficulties swallowing pills and states she takes a lot of pills. She resides in an assisted living and consumes regular solids and thin liquids. PMHx significant for CVA, which she reports occurred about 12-13 years ago , kidney disease, myocardial infarction, cognitive communication deficit, mild cognitive impairment, type 2 diabetes. Subjective Observations/Patient Presentation Pt arrived on time with her friend, Kalpana. Objective Treatment Activities Therapeutic PO trials, education on swallowing exercises Assessment Patient Response to Treatment Good Rehab Potential Excellent Impairments Identified Swallow Progress Towards Goals Good Progress Assessment of Improvement ST assessed swallow function with therapeutic PO trials of regular solids and thin liquids. Pt reports no recent occurrences of swallow difficulties. She also reports she has not been notified yet to schedule a MBS. Pt consumed matti crackers and about 6 oz of thin water via cup. For matti crackers Pt demonstrated adequate bite size and rate, prolonged mastication however adequate bolus formation and control, extended ap transport, piecemeal deglutition, no overt s/s of aspiration. For thin liquids no overt s/s of aspiration. She required mild cues to alternate liquids/ solids to assist with intake. ST provided handout on swallow exercises and showed a demonstration. Pt demonstrated exercises correctly, however some confusion with the Mendlesohn. Pt completed Kathie and effortful swallow with minimal cues. Pt friend states she will ensure Pt does her exercises since she has some cognitive deficits. ST encouraged Pt to complete exercises 2-3x/day 10 reps each.
--- NOTE | 2024-04-26 14:23 | ST.OPTN ---
Visit Care Team Role Provider Type Idalia Bashir MD Attending Provider Physician Family Provider Primary Care Provider Referring Provider Address: [place], [address] CHURNER Treatment Note CHURNER Treatment Note Start: 04/18/24 12:56 Freq: Status: Active Protocol: Document 04/26/24 14:21 MA (Rec: 04/26/24 14:22 MA [id number]) Speech Pathology Treatment Note Session Time Visit Start Time 13:45 Visit Stop Time 14:20 Total Visit Minutes 35 Visit Information Visit Number 3 Plan of Care Dates 04/13/24-07/14/24 Setting Treatment Setting Outpatient Care General Information Patient History Pt is an 88 year old female seen this date for swallow evaluation d/t referring dx of dysphagia. Pt is accompanied by her neighbor friend, Kalpana, who assisted Pt with case history information d/t Pt with mild cognitive impairment . She reports swallowing issues has been going on for about 6 months on/off, specifically having moments where food feels stuck in throat resulting in her coughing and eventually coughing up food. Pt reports it does not happen often, maybe once a week. Pt friend reports she witnessed it while they were out to breakfast at a restaurant recently where Pt was eating eggs, garcia and toast. She also reports difficulties swallowing pills and states she takes a lot of pills. She resides in an assisted living and consumes regular solids and thin liquids. PMHx significant for CVA, which she reports occurred about 12-13 years ago , kidney disease, myocardial infarction, cognitive communication deficit, mild cognitive impairment, type 2 diabetes. Subjective Observations/Patient Presentation Pt arrived on time with her friend, Kalpana who did not accompany her to therapy. Objective Treatment Activities Therapeutic PO trials, education on swallowing exercises Assessment Patient Response to Treatment Good Rehab Potential Excellent Impairments Identified Swallow Progress Towards Goals Good Progress Assessment of Improvement ST assessed swallow function with therapeutic PO trials of regular solids and thin liquids. Pt reports no recent occurrences of swallow difficulties. She also reports she has not been notified yet to schedule a MBS. ST communicated with DI who received the order however had not heard from the patient. Patient was able to schedule appointment during session for May 03. Pt consumed matti crackers and about 1 oz of thin water via cup. For matti crackers Pt demonstrated adequate bite size and rate, prolonged mastication however adequate bolus formation and control, extended ap transport , piecemeal deglutition, no overt s/s of aspiration. For thin liquids no overt s/s of aspiration. She required mild cues to alternate liquids/ solids to assist with intake. ST provided handout on swallow exercises and showed a demonstration. Pt demonstrated exercises correctly, however some confusion with the Mendlesohn. Pt completed Kathie and effortful swallow with minimal cues. Pt friend states she will ensure Pt does her exercises since she has some cognitive deficits. ST encouraged Pt to complete exercises 2-3x/day 10 reps each.
--- NOTE | 2024-05-10 11:13 | ST.OPTN ---
Visit Care Team Role Provider Type Idalia Bashir MD Attending Provider Physician Family Provider Primary Care Provider Referring Provider Address: [place], [address] RECRUITMENT CONSULTANT Treatment Note RECRUITMENT CONSULTANT Treatment Note Start: 04/18/24 12:56 Freq: Status: Active Protocol: Document 05/10/24 11:04 MA (Rec: 05/10/24 11:13 MA [id number]) Speech Pathology Treatment Note Session Time Visit Start Time 10:30 Visit Stop Time 11:00 Total Visit Minutes 30 Visit Information Visit Number 4 Plan of Care Dates 04/13/24-07/14/24 Setting Treatment Setting Outpatient Care Visit Type Note Type Treatment Note Next Note Type Next Note Type Discharge Summary General Information Patient History Pt is an 88 year old female seen this date for swallow evaluation d/t referring dx of dysphagia. Pt is accompanied by her neighbor friend, Kalpana, who assisted Pt with case history information d/t Pt with mild cognitive impairment . She reports swallowing issues has been going on for about 6 months on/off, specifically having moments where food feels stuck in throat resulting in her coughing and eventually coughing up food. Pt reports it does not happen often, maybe once a week. Pt friend reports she witnessed it while they were out to breakfast at a restaurant recently where Pt was eating eggs, garcia and toast. She also reports difficulties swallowing pills and states she takes a lot of pills. She resides in an assisted living and consumes regular solids and thin liquids. PMHx significant for CVA, which she reports occurred about 12-13 years ago , kidney disease, myocardial infarction, cognitive communication deficit, mild cognitive impairment, type 2 diabetes. Subjective Observations/Patient Presentation Pt arrived on time with her friend, Kalpana who did not accompany her to therapy. Objective Short Term Goals STG 1: Pt will participate in MBSS in order to guide POC. - MET completed 08/17 STG 2: Pt will tolerate prescribed diet with <5% overt s/s of aspiration/ dysphagia with use of compensatory swallowing strategies and minimal cues. - MET STG 3: Pt will complete hyolaryngeal strengthening exercises for improved pharyngeal phase of swallow with minimal cueing with 90% accuracy. - MET Skilled Nursing Goals LTG 1: Patient will consume safest and most efficient least restrictive diet with no clinical s/s of aspiration or dysphagia 100% of the time in order to meet primary nutrition/ hydration needs.- MET (Reg solids and thin liquids or per Pt tolerance) Treatment Activities Therapeutic PO trials, MBS review, education on swallowing exercises Assessment Patient Response to Treatment Good Rehab Potential Excellent Impairments Identified Swallow Progress Towards Goals Good Progress,Appropriate for Discharge Assessment of Improvement ST reviewed MBS that was completed on 05/03/24, with the following results/ recommendations: *Suspect age related esophageal dysmotility. In the lateral view, the esophagus was viewed indirectly. Residual contrast appeared to remain in the esophagus. A barium tablet with water was observed to clear residual and tablet to to the stomach. Pt reports she drinks a lot of diet sodas during the day. She also noted she watches tv during meals and will occasionally go out to eat with a friend. Pt reports that she tends to spew liquids from her mouth during meals. Given her consumption of carbonated beverages, she may be eating and drinking too quickly resulting in a build up of solid boluses (due to dysmotility) and then swallowing carbonation that cannot go past the bolus build up causing emesis. Additionally, by pt watching tv or talking with a friend during meals, she is distracted while eating. This tends to lead to eating/ drinking to quickly with the same outcome. Rehabilitation Potential Good Patient Appropriate for Therapy Yes: Pt referred for safe swallow tx and strategy implementation Recommendations Diet Comments No change in diet recommended Aspiration Precautions Recommended Precautions Frequent Rest Periods,Small Bites/Sips Treatment Plan Therapy Recommendations Outpatient Speech Therapy Therapy Strategy Recommendations Small Bites and Sips Additional Strategies Recommended Frequent rest periods; put utensils down between bites Pt independently reported she is trying to eat slowly and taking small bites. ST also educated Pt on importance of reducing distractions and drinking soda outside of meals . Pt verbalized understanding . ST assessed swallow function with therapeutic PO trials of regular solids and thin liquids. Pt reports no recent occurrences of swallow difficulties. Pt consumed matti crackers, diced pears and about 3 oz of thin water via cup. For solids Pt demonstrated adequate bite size and rate, prolonged mastication however adequate bolus formation and control, extended ap transport, piecemeal deglutition, no overt s/s of aspiration. For thin liquids no overt s/s of aspiration. She required mild cues to alternate liquids/ solids to assist with intake. ST recommends Pt discharge from this date d/t MBS results, and carryover and recall of safe swallowing strategies. ST encouraged Pt to continue to utilize safe swallowing strategies and to return to therapy if swallowing becomes worse. Pt and Pt friend verbalized understanding. Reviewed with Patient Goals,Progress Being Made,Home Exercise Program Patient/Caregiver Understanding Excellent Plan Frequency of Treatment No Further Therapy
== END 2024-05-11 13:50 ==
LOC: SP 10:30
PROVIDERS: Family Provider Internal Medicine; PCP Internal Medicine; Referring Provider Internal Medicine; Visit Provider Internal Medicine
DX: R13.10 Dysphagia, unspecified (principal)
CPT/HCPCS: 92526; 92610

== ENCOUNTER 2024-09-04 13:48 | Inpatient (IN) | payer MEDICARE, SELFPAY ==
[2023-03-27 19:31] VITALS: BMI 38.0
[2024-09-04] VITALS (32 sets, daily range): BP systolic 84–140; BP diastolic 50–69; PULSE 74–88; RESP 15–40; TEMP 36.7–36.8; O2SAT 88–98; BMI 37.2
--- NOTE | 2024-09-04 14:07 | DI.RAD.S_ITS ---
PROCEDURE: XR CHEST 1V INDICATIONS: Shortness of breath TECHNIQUE: One view of the chest was acquired. COMPARISON: [facility], CR, XR CHEST 1V, 04/08/2024, 12:41. [facility], CR, XR CHEST 2V, 01/19/2023, 15:44. FINDINGS: Surgical changes and devices: None. Lungs and pleura: Left basilar opacity and likely small effusion. Mediastinum: Mediastinal contours appear normal. Heart size is normal. Bones and chest wall: No suspicious bony lesions. Overlying soft tissues appear unremarkable. IMPRESSION: Left basilar opacity and likely small effusion. Dictated by: Willi Camargo M.D. on 09/04/2024 at 15:26 Approved by: Willi Camargo M.D. on 09/04/2024 at 15:28
[2024-09-04 14:21] LABS: Add Manual Diff / Slide Review NO; Basophils Absolute Auto 0 /uL (0-100); Basophils Percent Auto 0.2 % (0-2); Eosinophils Absolute Auto 300 /uL (0-450); Eosinophils Percent Auto 2.9 % (2-4); Hematocrit 38.3 % (36-46); Hemoglobin 12.5 g/dL (12.0-16.0); Lymphocytes Absolute Auto 1800 /uL (1100-4500); Lymphocytes Percent Auto 17.6 % (25-40); Mean Corpuscular HGB Conc 32.6 % (30-36); Mean Corpuscular Hemoglobin 27.5 PG (26-34); Mean Corpuscular Volume 84.4 fL (80-100); Monocytes Absolute Auto 1300 /uL (0-900); Monocytes Percent Auto 13.1 % (3-14); Neutrophils Absolute Auto 6700 /uL (1500-7000); Neutrophils Percent Auto 66.2 % (50-75); Platelet Count 203 X10^3/uL (150-400); Red Blood Cell Count 4.53 X10^6/uL (4.0-5.2); Red Cell Distribution Width 16.1 % (11.6-14.8); White Blood Cell Count 10.1 X10^3/uL (4.5-11.0)
[2024-09-04 14:27] LABS: INR 1.1 (0.9-1.3); Prothrombin Time 12.2 SECONDS (9.4-12.5)
[2024-09-04 14:33] LABS: Alanine Aminotransferase 13 IU/L (<35); Albumin 4.3 g/dL (3.5-5.0); Albumin Globulin Ratio 1.1 (1.0-2.8); Alkaline Phosphatase 84 U/L (38-126); Aspartate Aminotransferase 22 IU/L (14-36); BUN Creatinine Ratio 16.3 (6-22); Bilirubin Total 0.8 mg/dL (0.2-1.3); Blood Urea Nitrogen 34 mg/dL (7-17); Calcium 8.9 mg/dL (8.4-10.2); Carbon Dioxide 27 mmol/L (22-32); Chloride 99 mmol/L (98-107); Estimated Glomerular Filt Rate 22 mL/min (>60); Globulin 3.9 g/dL (1.7-4.1); Glucose 94 mg/dL (80-110); HEMOLYSIS < 15 (0-50); Potassium 3.9 mmol/L (3.4-5.1); Sodium 135 mmol/L (137-145); Total Protein 8.2 g/dL (6.3-8.2)
[2024-09-04 14:34] LABS: Lactate (Lactic Acid) 1.9 mmol/L (0.7-2.1)
[2024-09-04 14:45] LABS: NT-proBNP (BNP-Adult 18+) 1330 pg/mL (<450); Troponin I < 0.012 ng/mL (0.01-0.034)
--- NOTE | 2024-09-04 15:35 | ED.GENADULT ---
HPI - General Adult <Cata Craft MD - Last Filed: 09/05/24 07:39> General Chief complaint: Shortness of Breath/Dyspnea Stated complaint: Fell left side of body pain, cough Time Seen by Provider: 09/04/24 14:13 Related Data Home Medications Medication Instructions Recorded Confirmed rosuvastatin 40 mg tablet 40 mg PO BEDTIME 05/24/19 09/04/24 clopidogrel 75 mg tablet 75 mg PO DAILY 03/27/23 09/04/24 gabapentin 300 mg capsule See Rx Instructions .Route .COMPLEX 03/27/23 09/04/24 alendronate 70 mg tablet 70 mg PO WEEKLY 06/02/24 09/04/24 furosemide 40 mg tablet 40 mg PO DAILY 06/02/24 09/04/24 levothyroxine 125 mcg tablet 125 mcg PO DAILY 06/02/24 09/04/24 metoprolol succinate 25 mg 12.5 mg PO BID 06/02/24 09/04/24 tablet,extended release 24 hr oxybutynin chloride 5 mg tablet 5 mg PO BID 06/02/24 09/04/24 pantoprazole 40 mg tablet,delayed 40 mg PO DAILY 06/02/24 09/04/24 release sertraline 50 mg tablet 50 mg PO DAILY 06/02/24 09/04/24 Previous Rx's Medication Instructions Recorded acetaminophen 325 mg tablet 975 mg (3 x 325 mg) PO TID #60 tabs 03/29/23 nystatin 100,000 unit/gram topical 1 applic topical BID #45 grams 03/29/23 powder (Nystop) ospemifene 60 mg tablet (Osphena) 60 mg PO DAILY #90 tabs 03/15/24 Allergies Allergy/AdvReac Type Severity Reaction Status Date / Time vibegron AdvReac Intermediate Rash Verified 09/04/24 21:49 <Jose Cruz Thakkar DO - Last Filed: 09/04/24 19:43> History of Present Illness HPI narrative: Patient is a 89-year-old female with a history of CHF, hyperlipidemia, TIA, not on any blood thinners presents to the emergency department with family for evaluation of multiple complaints. States she had a mechanical trip and fall several days ago states that she fell over her walker landed on the left side of her body denies head strike denies blood thinners. States that she was eventually able to get up walk but has been having persistent pain to the left side of her chest, she is also having persistent/worsening shortness of breath. Therefore decided come into the ED for further evaluation treatment. Review of Systems <Jose Cruz Thakkar DO - Last Filed: 09/04/24 19:43> Review of Systems Narrative: General: Denies fever, chills, weight loss HEENT: Denies headache, eye drainage, eye irritation, head trauma, sore throat, voice change Cardiovascular: Denies any chest pain, palpitations, shortness of breath, tachycardia Respiratory: Positive shortness of breath, denies cough, wheeze, stridor GI/: Denies any abdominal pain, nausea, vomiting, diarrhea, bright red blood per rectum, melanotic stools, urinary frequency, urinary retention, dysuria, hematuria MSK: Positive left-sided rib pain Skin: Denies any rashes, lesions, discoloration Neuro: Denies any headache, lightheadedness, dizziness, fainting, weakness Psych: Denies SI/HI Patient History <Cata Craft MD - Last Filed: 09/05/24 07:39> Medical History Postmenopausal atrophic vaginitis Functional incontinence Urge incontinence Degenerative disc disease Lumbar spinal stenosis Stenosis of right carotid artery greater than 50% Chronic sciatica of right side Hyperlipidemia Osteopenia History of non-ST elevation myocardial infarction (NSTEMI) 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 Osteopenia Essential hypertension History of CVA (cerebrovascular accident) CVA (cerebral vascular accident) Surgical History History of hysterectomy History of cholecystectomy History of bilateral breast reduction surgery History of cataract extraction with lens replacement Family History Other Adopted (not a blood relative) Social History household members: none Smoking Status: Former smoker alcohol intake: current Smoking Status: Former smoker alcohol intake frequency: holidays/special occasions only Substance Use Type: marijuana Exam <Cata Craft MD - Last Filed: 09/05/24 07:39> Initial Vital Signs Initial Vital Signs: Vital Signs Temperature 98.0 F 09/04/24 13:55 Pulse Rate 85 09/04/24 13:55 Respiratory Rate 18 09/04/24 13:55 Blood Pressure 123/58 L 09/04/24 13:55 Pulse Oximetry 88 L 09/04/24 13:55 Oxygen Delivery Method Room Air 09/04/24 13:55 <Jose Cruz Thakkar DO - Last Filed: 09/04/24 19:43> Narrative Exam Narrative: General: Cooperative, comfortable, well-developed, not in acute distress HEENT: Normocephalic, atraumatic, PERRLA, normal sclera, eyelids normal, Neck: Active full range of motion, atraumatic Chest: Normal to inspection, negative crepitus, no overlying erythema ecchymosis Respiratory: Normal respiratory effort, not in acute respiratory distress, clear to auscultation bilaterally negative cough, wheeze, tachypnea, rhonchi, rales Cardiology: Regular rate rhythm negative gallop, murmur, rubs GI/: Normal to inspection, soft, nonrigid, no tenderness to palpation, exam deferred MSK: Tenderness to palpation over the anterior lateral ribs, but no overlying ecchymosis noted Skin: No rashes lesions noted Neuro: Alert awake oriented x3, moves all 4 extremities spontaneously, cranial nerves intact, able to answer all questions appropriately follows commands appropriately Psych: Cooperative, negative suicidal or homicidal ideations Initial Vital Signs Initial Vital Signs: Vital Signs Temperature 98.0 F 09/04/24 13:55 Pulse Rate 85 09/04/24 13:55 Respiratory Rate 18 09/04/24 13:55 Blood Pressure 123/58 L 09/04/24 13:55 Pulse Oximetry 88 L 09/04/24 13:55 Oxygen Delivery Method Room Air 09/04/24 13:55 Course <Cata Craft MD - Last Filed: 09/05/24 07:39> Orders Ordered: Acetaminophen (Acetaminophen 325 Mg Tablet) 650 mg PO Q6H PRN PRN Reason: Fever/Mild Pain (1-3) Last Admin: 09/04/24 22:26 Dose: 650 mg Documented By: ALLEN Hydrocodone Bitart/Acetaminophen (Hydrocodone/Acet 5/325 Tablet) 1 tab PO Q4H PRN PRN Reason: Pain, Moderate (4-6) Atorvastatin Calcium (Atorvastatin 20 Mg Tablet) 80 mg PO BEDTIME [facility] Last Admin: 09/04/24 22:25 Dose: 80 mg Documented By: TLS Clopidogrel Bisulfate (Clopidogrel 75 Mg Tablet) 75 mg PO DAILY [facility] Furosemide (Furosemide 40 Mg Tablet) 40 mg PO BID [facility] Last Admin: 09/04/24 22:37 Dose: Not Given Documented By: MS Gabapentin (Gabapentin 300 Mg Capsule) 0 mg PO .COMPLEX [facility] Hydromorphone HCl (Hydromorphone 2 Mg Tablet) 2 mg PO Q4HR PRN PRN Reason: Pain, Moderate (4-6) Hydromorphone HCl (Hydromorphone 0.5 Mg Inj) 0.5 mg IV Q2H PRN PRN Reason: Pain, Severe (7-10) Last Admin: 09/04/24 23:44 Dose: 0.5 mg Documented By: Levothyroxine Sodium (Levothyroxine 125 Mcg Tablet) 125 mcg PO DAILY@0600 [facility] Lidocaine (Lidocaine 5% Patch) 1 each TOP BEDTIME [facility] Last Admin: 09/04/24 22:25 Dose: 1 each Documented By: TLS Metoprolol Succinate (Metoprolol Er 25 Mg Tablet) 25 mg PO DAILY [facility] Naloxone HCl (Naloxone 0.4 Mg/Ml Vial) 0.2 mg IV Q2MIN PRN PRN Reason: Opiate Reversal Ondansetron HCl (Ondansetron 4 Mg/2 Ml Inj) 4 mg IV Q8HR PRN PRN Reason: Nausea And Vomiting Oxycodone HCl (Oxycodone Ir 5 Mg Tablet) 5 mg PO Q3H PRN PRN Reason: Pain, Moderate (4-6) Last Admin: 09/04/24 22:26 Dose: 5 mg Documented By: TLS Sertraline HCl (Sertraline 50 Mg Tablet) 50 mg PO DAILY [facility] Sodium Chloride (Sodium Chloride 0.9% Flush) 10 ml IV BID [facility] Discontinued Medications Hydromorphone HCl (Hydromorphone 0.5 Mg Inj) 0.5 mg IV Q15MIN PRN PRN Reason: Pain, Last Admin: 09/04/24 19:14 Dose: 0.5 mg Documented By: Admin: 09/04/24 16:21 Dose: 0.5 mg Documented By: ES Furosemide 80 mg/ Sodium (Chloride) 58 mls @ 116 mls/hr IV NOW ONE Stop: 09/04/24 16:15 Last Infusion: 09/04/24 17:48 Dose: Infused Documented By: Admin: 09/04/24 17:01 Dose: 116 mls/hr Documented By: LISA Lidocaine/Prilocaine (Lidocaine/Prilocaine 30 Gm) 1 applic TOP NOW ONE Stop: 09/04/24 20:16 Last Admin: 09/04/24 20:18 Dose: Not Given Documented By: LISA Lidocaine/Prilocaine (Lidocaine/Prilocaine 30 Gm) 1 applic TOP NOW ONE Stop: 09/04/24 20:19 Last Admin: 09/04/24 21:20 Dose: Not Given Documented By: LISA Lidocaine/Prilocaine (Lidocaine/Prilocaine 5 Gm) 5 gm TOP NOW ONE Stop: 09/04/24 20:22 Last Admin: 09/04/24 20:27 Dose: 5 gm Documented By: CHA Vital Signs Vital signs: Vital Signs - 8 hr 09/04/24 13:55 09/04/24 14:07 09/04/24 14:25 Temperature 98.0 F Pulse Rate 85 88 78 Respiratory Rate 18 20 Blood Pressure 123/58 L Pulse Oximetry 88 L 93 Oxygen Delivery Method Room Air Nasal Cannula Nasal Cannula Oxygen Flow Rate 2 2 09/04/24 14:30 09/04/24 14:51 09/04/24 14:52 Temperature Pulse Rate 82 88 Respiratory Rate Blood Pressure 127/60 Pulse Oximetry 95 96 Oxygen Delivery Method Nasal Cannula Nasal Cannula Oxygen Flow Rate 2 2 09/04/24 14:52 09/04/24 15:00 09/04/24 15:00 Temperature Pulse Rate 86 79 Respiratory Rate 21 15 Blood Pressure 108/53 L Pulse Oximetry 95 97 Oxygen Delivery Method Oxygen Flow Rate 09/04/24 15:30 09/04/24 15:30 09/04/24 16:00 Temperature Pulse Rate 77 84 Respiratory Rate 15 27 H Blood Pressure 103/54 L Pulse Oximetry 98 98 Oxygen Delivery Method Oxygen Flow Rate 09/04/24 16:01 09/04/24 16:01 09/04/24 16:35 Temperature Pulse Rate 83 81 Respiratory Rate 22 Blood Pressure 137/63 Pulse Oximetry 98 97 Oxygen Delivery Method Oxygen Flow Rate 09/04/24 16:36 09/04/24 16:36 09/04/24 17:00 Temperature Pulse Rate 80 85 Respiratory Rate 16 35 H Blood Pressure 111/55 L Pulse Oximetry 96 95 Oxygen Delivery Method Oxygen Flow Rate 09/04/24 17:14 09/04/24 17:14 09/04/24 17:30 Temperature Pulse Rate 81 75 Respiratory Rate 40 H 19 Blood Pressure 110/69 Pulse Oximetry 93 96 Oxygen Delivery Method Nasal Cannula Oxygen Flow Rate 2 09/04/24 17:31 09/04/24 17:31 09/04/24 18:00 Temperature Pulse Rate 75 74 Respiratory Rate 17 17 Blood Pressure 98/50 L Pulse Oximetry 96 96 Oxygen Delivery Method Nasal Cannula Oxygen Flow Rate 1 09/04/24 18:04 09/04/24 18:04 09/04/24 18:30 Temperature Pulse Rate 79 77 Respiratory Rate 22 15 Blood Pressure 122/68 Pulse Oximetry 95 96 Oxygen Delivery Method Room Air Oxygen Flow Rate 09/04/24 18:31 09/04/24 18:31 09/04/24 19:00 Temperature Pulse Rate 76 82 Respiratory Rate 17 22 Blood Pressure 125/60 Pulse Oximetry 96 96 Oxygen Delivery Method Oxygen Flow Rate 09/04/24 19:15 09/04/24 19:15 09/04/24 19:26 Temperature Pulse Rate 79 75 Respiratory Rate 29 H 29 H Blood Pressure 96/59 L Pulse Oximetry 92 96 Oxygen Delivery Method Oxygen Flow Rate 09/04/24 19:26 09/04/24 19:27 09/04/24 19:28 Temperature Pulse Rate 76 Respiratory Rate 28 H Blood Pressure 88/50 L 84/52 L Pulse Oximetry 96 Oxygen Delivery Method Nasal Cannula Oxygen Flow Rate 2 09/04/24 19:28 09/04/24 19:30 09/04/24 19:31 Temperature Pulse Rate 79 79 Respiratory Rate 23 24 Blood Pressure 112/56 L Pulse Oximetry 96 95 Oxygen Delivery Method Oxygen Flow Rate 09/04/24 19:31 Temperature Pulse Rate 78 Respiratory Rate 22 Blood Pressure Pulse Oximetry 95 Oxygen Delivery Method Nasal Cannula Oxygen Flow Rate 2 <Jose Cruz Thakkar DO - Last Filed: 09/04/24 19:43> Orders Ordered: Acetaminophen (Acetaminophen 325 Mg Tablet) 650 mg PO Q6H PRN PRN Reason: Fever/Mild Pain (1-3) Last Admin: 09/04/24 22:26 Dose: 650 mg Documented By: TLS Hydrocodone Bitart/Acetaminophen (Hydrocodone/Acet 5/325 Tablet) 1 tab PO Q4H PRN PRN Reason: Pain, Moderate (4-6) Atorvastatin Calcium (Atorvastatin 20 Mg Tablet) 80 mg PO BEDTIME [facility] Last Admin: 09/04/24 22:25 Dose: 80 mg Documented By: TLS Clopidogrel Bisulfate (Clopidogrel 75 Mg Tablet) 75 mg PO DAILY [facility] Furosemide (Furosemide 40 Mg Tablet) 40 mg PO BID [facility] Last Admin: 09/04/24 22:37 Dose: Not Given Documented By: MS Gabapentin (Gabapentin 300 Mg Capsule) 0 mg PO .COMPLEX [facility] Hydromorphone HCl (Hydromorphone 2 Mg Tablet) 2 mg PO Q4HR PRN PRN Reason: Pain, Moderate (4-6) Hydromorphone HCl (Hydromorphone 0.5 Mg Inj) 0.5 mg IV Q2H PRN PRN Reason: Pain, Severe (7-10) Last Admin: 09/04/24 23:44 Dose: 0.5 mg Documented By: MS Levothyroxine Sodium (Levothyroxine 125 Mcg Tablet) 125 mcg PO DAILY@0600 [facility] Lidocaine (Lidocaine 5% Patch) 1 each TOP BEDTIME [facility] Last Admin: 09/04/24 22:25 Dose: 1 each Documented By: TLS Metoprolol Succinate (Metoprolol Er 25 Mg Tablet) 25 mg PO DAILY [facility] Naloxone HCl (Naloxone 0.4 Mg/Ml Vial) 0.2 mg IV Q2MIN PRN PRN Reason: Opiate Reversal Ondansetron HCl (Ondansetron 4 Mg/2 Ml Inj) 4 mg IV Q8HR PRN PRN Reason: Nausea And Vomiting Oxycodone HCl (Oxycodone Ir 5 Mg Tablet) 5 mg PO Q3H PRN PRN Reason: Pain, Moderate (4-6) Last Admin: 09/04/24 22:26 Dose: 5 mg Documented By: TLS Sertraline HCl (Sertraline 50 Mg Tablet) 50 mg PO DAILY [facility] Sodium Chloride (Sodium Chloride 0.9% Flush) 10 ml IV BID [facility] Discontinued Medications Hydromorphone HCl (Hydromorphone 0.5 Mg Inj) 0.5 mg IV Q15MIN PRN PRN Reason: Pain, Last Admin: 09/04/24 19:14 Dose: 0.5 mg Documented By: Admin: 09/04/24 16:21 Dose: 0.5 mg Documented By: CHA Furosemide 80 mg/ Sodium (Chloride) 58 mls @ 116 mls/hr IV NOW ONE Stop: 09/04/24 16:15 Last Infusion: 09/04/24 17:48 Dose: Infused Documented By: Admin: 09/04/24 17:01 Dose: 116 mls/hr Documented By: LISA Lidocaine/Prilocaine (Lidocaine/Prilocaine 30 Gm) 1 applic TOP NOW ONE Stop: 09/04/24 20:16 Last Admin: 09/04/24 20:18 Dose: Not Given Documented By: LISA Lidocaine/Prilocaine (Lidocaine/Prilocaine 30 Gm) 1 applic TOP NOW ONE Stop: 09/04/24 20:19 Last Admin: 09/04/24 21:20 Dose: Not Given Documented By: LISA Lidocaine/Prilocaine (Lidocaine/Prilocaine 5 Gm) 5 gm TOP NOW ONE Stop: 09/04/24 20:22 Last Admin: 09/04/24 20:27 Dose: 5 gm Documented By: CHA Vital Signs Vital signs: Vital Signs - 8 hr 09/04/24 13:55 09/04/24 14:07 09/04/24 14:25 Temperature 98.0 F Pulse Rate 85 88 78 Respiratory Rate 18 20 Blood Pressure 123/58 L Pulse Oximetry 88 L 93 Oxygen Delivery Method Room Air Nasal Cannula Nasal Cannula Oxygen Flow Rate 2 2 09/04/24 14:30 09/04/24 14:51 09/04/24 14:52 Temperature Pulse Rate 82 88 Respiratory Rate Blood Pressure 127/60 Pulse Oximetry 95 96 Oxygen Delivery Method Nasal Cannula Nasal Cannula Oxygen Flow Rate 2 2 09/04/24 14:52 09/04/24 15:00 09/04/24 15:00 Temperature Pulse Rate 86 79 Respiratory Rate 21 15 Blood Pressure 108/53 L Pulse Oximetry 95 97 Oxygen Delivery Method Oxygen Flow Rate 09/04/24 15:30 09/04/24 15:30 09/04/24 16:00 Temperature Pulse Rate 77 84 Respiratory Rate 15 27 H Blood Pressure 103/54 L Pulse Oximetry 98 98 Oxygen Delivery Method Oxygen Flow Rate 09/04/24 16:01 09/04/24 16:01 09/04/24 16:35 Temperature Pulse Rate 83 81 Respiratory Rate 22 Blood Pressure 137/63 Pulse Oximetry 98 97 Oxygen Delivery Method Oxygen Flow Rate 09/04/24 16:36 09/04/24 16:36 09/04/24 17:00 Temperature Pulse Rate 80 85 Respiratory Rate 16 35 H Blood Pressure 111/55 L Pulse Oximetry 96 95 Oxygen Delivery Method Oxygen Flow Rate 09/04/24 17:14 09/04/24 17:14 09/04/24 17:30 Temperature Pulse Rate 81 75 Respiratory Rate 40 H 19 Blood Pressure 110/69 Pulse Oximetry 93 96 Oxygen Delivery Method Nasal Cannula Oxygen Flow Rate 2 09/04/24 17:31 09/04/24 17:31 09/04/24 18:00 Temperature Pulse Rate 75 74 Respiratory Rate 17 17 Blood Pressure 98/50 L Pulse Oximetry 96 96 Oxygen Delivery Method Nasal Cannula Oxygen Flow Rate 1 09/04/24 18:04 09/04/24 18:04 09/04/24 18:30 Temperature Pulse Rate 79 77 Respiratory Rate 22 15 Blood Pressure 122/68 Pulse Oximetry 95 96 Oxygen Delivery Method Room Air Oxygen Flow Rate 09/04/24 18:31 09/04/24 18:31 09/04/24 19:00 Temperature Pulse Rate 76 82 Respiratory Rate 17 22 Blood Pressure 125/60 Pulse Oximetry 96 96 Oxygen Delivery Method Oxygen Flow Rate 09/04/24 19:15 09/04/24 19:15 09/04/24 19:26 Temperature Pulse Rate 79 75 Respiratory Rate 29 H 29 H Blood Pressure 96/59 L Pulse Oximetry 92 96 Oxygen Delivery Method Oxygen Flow Rate 09/04/24 19:26 09/04/24 19:27 09/04/24 19:28 Temperature Pulse Rate 76 Respiratory Rate 28 H Blood Pressure 88/50 L 84/52 L Pulse Oximetry 96 Oxygen Delivery Method Nasal Cannula Oxygen Flow Rate 2 09/04/24 19:28 09/04/24 19:30 09/04/24 19:31 Temperature Pulse Rate 79 79 Respiratory Rate 23 24 Blood Pressure 112/56 L Pulse Oximetry 96 95 Oxygen Delivery Method Oxygen Flow Rate 09/04/24 19:31 Temperature Pulse Rate 78 Respiratory Rate 22 Blood Pressure Pulse Oximetry 95 Oxygen Delivery Method Nasal Cannula Oxygen Flow Rate 2 Medical Decision Making <Cata Craft MD - Last Filed: 09/05/24 07:39> Lab Data 09/05/24 06:40 09/05/24 06:40 Labs: Lab Results 09/04/24 Range/Units 14:10 WBC 10.1 (4.5-11.0) X10^3/uL RBC 4.53 (4.0-5.2) X10^6/uL Hgb 12.5 (12.0-16.0) g/dL Hct 38.3 (36-46) % MCV 84.4 (80-100) fL MCH 27.5 (26-34) PG MCHC 32.6 (30-36) % RDW 16.1 H (11.6-14.8) % Plt Count 203 (150-400) X10^3/uL Neut % (Auto) 66.2 (50-75) % Lymph % (Auto) 17.6 L (25-40) % Darke % (Auto) 13.1 (3-14) % Eos % (Auto) 2.9 (2-4) % Baso % (Auto) 0.2 (0-2) % Neut # (Auto) 6700 (7612-8130) /uL Lymph # (Auto) 1800 (5325-1837) /uL Darke # (Auto) 1300 H (0-900) /uL Eos # (Auto) 300 (0-450) /uL Baso # (Auto) 0 (0-100) /uL PT 12.2 (9.4-12.5) SECONDS INR 1.1 (0.9-1.3) Sodium 135 L (137-145) mmol/L Potassium 3.9 (3.4-5.1) mmol/L Chloride 99 (98-107) mmol/L Carbon Dioxide 27 (22-32) mmol/L BUN 34 H (7-17) mg/dL Creatinine 2.08 H (0.52-1.04) mg/dL Estimated GFR 22 L (>60) mL/min BUN/Creatinine Ratio 16.3 (6-22) Glucose 94 (80-110) mg/dL Lactate 1.9 (0.7-2.1) mmol/L Calcium 8.9 (8.4-10.2) mg/dL Total Bilirubin 0.8 (0.2-1.3) mg/dL AST 22 (14-36) IU/L ALT 13 (<35) IU/L Alkaline Phosphatase 84 (38-126) U/L Troponin I < 0.012 (0.01-0.034) ng/mL NT-Pro-B Natriuret Pep 1330 H (<450) pg/mL Total Protein 8.2 (6.3-8.2) g/dL Albumin 4.3 (3.5-5.0) g/dL Globulin 3.9 (1.7-4.1) g/dL Albumin/Globulin Ratio 1.1 (1.0-2.8) MDM Narrative Medical decision making narrative: CC: Complicating co-morbidities: Data collected from: patient Social determinants of health that may influence the patients condition: Medical records reviewed: Differential considered: Exam documented above, pertinent findings include: Lab Test results independently reviewed as above. Pertinent findings: CBC is unremarkable, no anemia, no leukocytosis Chemistries show a bump in creatinine from 1.4-2 0. Normal electrolytes. Normal liver studies Lactic acid is not elevated Troponin is not elevated BNP is elevated at 1330 Independently reviewed EKG: Imaging studies independently reviewed: Chest x-ray shows small left basilar opacity and likely small effusion. Consultations: Treatments: Re-evaluations: Discussion: <Jose Cruz Thakkar, - Last Filed: 09/04/24 19:43> Lab Data Labs: Lab Results 09/04/24 Range/Units 14:10 WBC 10.1 (4.5-11.0) X10^3/uL RBC 4.53 (4.0-5.2) X10^6/uL Hgb 12.5 (12.0-16.0) g/dL Hct 38.3 (36-46) % MCV 84.4 (80-100) fL MCH 27.5 (26-34) PG MCHC 32.6 (30-36) % RDW 16.1 H (11.6-14.8) % Plt Count 203 (150-400) X10^3/uL Neut % (Auto) 66.2 (50-75) % Lymph % (Auto) 17.6 L (25-40) % Darke % (Auto) 13.1 (3-14) % Eos % (Auto) 2.9 (2-4) % Baso % (Auto) 0.2 (0-2) % Neut # (Auto) 6700 (9852-9465) /uL Lymph # (Auto) 1800 (8155-5295) /uL Darke # (Auto) 1300 H (0-900) /uL Eos # (Auto) 300 (0-450) /uL Baso # (Auto) 0 (0-100) /uL PT 12.2 (9.4-12.5) SECONDS INR 1.1 (0.9-1.3) Sodium 135 L (137-145) mmol/L Potassium 3.9 (3.4-5.1) mmol/L Chloride 99 (98-107) mmol/L Carbon Dioxide 27 (22-32) mmol/L BUN 34 H (7-17) mg/dL Creatinine 2.08 H (0.52-1.04) mg/dL Estimated GFR 22 L (>60) mL/min BUN/Creatinine Ratio 16.3 (6-22) Glucose 94 (80-110) mg/dL Lactate 1.9 (0.7-2.1) mmol/L Calcium 8.9 (8.4-10.2) mg/dL Total Bilirubin 0.8 (0.2-1.3) mg/dL AST 22 (14-36) IU/L ALT 13 (<35) IU/L Alkaline Phosphatase 84 (38-126) U/L Troponin I < 0.012 (0.01-0.034) ng/mL NT-Pro-B Natriuret Pep 1330 H (<450) pg/mL Total Protein 8.2 (6.3-8.2) g/dL Albumin 4.3 (3.5-5.0) g/dL Globulin 3.9 (1.7-4.1) g/dL Albumin/Globulin Ratio 1.1 (1.0-2.8) Imaging Data CT chest abdomen and pelvis: Radiologist's Impression: [place] [id number] CT Scan Report Signed Patient: Michela Cao MR#: [id number] : 1935 Acct:[id number] Age/Sex: 89 / F Date of Service: 09/04/24 Loc: ED Accession Number: [id number] Procedure: CT chest abd pel wo con Ordering Provider: Cata Craft MD PROCEDURE: CT CHEST ABD PEL WO CON INDICATIONS: fall, ? rib fx, t10 fx, pelvic fx, hemothorax TECHNIQUE: After the administration of oral contrast, 5 mm thick sections acquired from the lung apices to the symphysis pubis. 5 mm thick coronal and sagittal reformats acquired, with additional 7 mm coronal MIP reformats through the lungs. For radiation dose reduction, the following was used: automated exposure control, adjustment of mA and/or kV according to patient size. COMPARISON: , CR, XR CHEST 1V, 09/04/2024, 14:04. , CR, XR HIP W PEL IF DONE RT 2V, 08/12/2024, 13:47. , CR, XR LUMBAR SPINE 2-3V, 08/12/2024, 13:47. FINDINGS: Image quality: Diagnostic. Thyroid: Within normal limits. Cardiac: Heart size within normal limits. No pericardial effusion. Left atrial enlargement. Severe mitral valve calcifications. Moderate coronary artery calcifications. Aorta: Thoracic aortic diameter within normal limits. Pulmonary Artery: Main pulmonary artery diameter within normal limits, although the left and right main pulmonary arteries are dilated up to 2.7 cm. Lungs: No focal lung consolidation. Background of basilar predominant bronchiectasis and interstitial reticulation. Pleura: Small left pleural effusion, likely representing a hemothorax. No pneumothorax. Airways: The trachea and mainstem bronchi are patent. Lymph Nodes: No mediastinal, hilar, or axillary lymphadenopathy. Esophagus: Moderate hiatal hernia. Bones: Diffuse osseous demineralization. Acute, minimally displaced left 6-10th lateral rib fractures. Unchanged grade 1 anterolisthesis of L3 on L4. Chronic-appearing T12 inferior endplate compression fracture with up to 30% height loss (4/92). Chronic right posterior rib fractures (4/121). Peritoneum: No pneumoperitoneum or ascites. Liver: Normal in size and contour. Gallbladder: Status post cholecystectomy. Biliary tree: No intrahepatic or extrahepatic biliary ductal dilatation. Pancreas: Fatty atrophy of the pancreas. Spleen: Normal in size and contour. Kidneys: No hydronephrosis or obstructive urolithiasis. Adrenals: No adrenal nodularity. Bladder: Normal in size and wall thickness. : Status post hysterectomy. No abnormal adnexal masses. Stomach: Normal in size and contour. Bowel: Normal in diameter without any bowel obstruction. Appendix within normal limits (2/125). Lymph Nodes: No retroperitoneal, mesenteric, or inguinal lymphadenopathy. Vascular: No abdominal aortic aneurysm. Moderate aortoiliac atherosclerosis. Soft Tissues: Subcutaneous fat stranding along the left lateral thoracic subcutaneous tissues. IMPRESSION: 1. Acute, minimally displaced fractures of the left 6th-10th lateral ribs with a small left hemothorax and traumatic subcutaneous contusions. No pneumothorax. 2. Severe mitral valve stenosis with subsequent dilatation of the pulmonary arteries and left atrial enlargement. 3. Moderate hiatal hernia. 4. Chronic-appearing T12 inferior endplate compression fracture. 5. No other acute abnormality of the chest/abdomen/pelvis. MDM Narrative Medical decision making narrative: CC: Complicating co-morbidities: Data collected from: patient Social determinants of health that may influence the patients condition: Medical records reviewed: Differential considered: Exam documented above, pertinent findings include: Lab Test results independently reviewed as above. Pertinent findings: CBC is unremarkable, no anemia, no leukocytosis Chemistries show a bump in creatinine from 1.4-2 0. Normal electrolytes. Normal liver studies Lactic acid is not elevated Troponin is not elevated BNP is elevated at 1330 Independently reviewed EKG: Imaging studies independently reviewed: Chest x-ray shows small left basilar opacity and likely small effusion. Consultations: Treatments: Re-evaluations: 1900 assumed care of patient, patient had a mechanical trip and fall several days ago, states that she was using her walker tripped over it fell on her left side of her body. Was able to stand bear weight ambulate after, however since then has had persistent pain to her left side of her body and is now having worsening shortness of breath. Patient did have CT scan that showed acute minimally displaced left 6th through 10th lateral rib fractures with small left hemothorax, but no pneumothorax. Patient also with elevated BNP, was given 80 of Lasix I previous provider for CHF exacerbation. Patient also currently requiring a proximally 2 L nasal cannula which is abnormal for her. Given acute respiratory failure requiring supplemental oxygen as well as will rib fractures, patient will require admission to the hospital for pain control, diuresis. Call placed to hospitalist for admission Discussion: The patient's management plan was discussed Dr. Castano, who agrees to admit the patient to their service and assumes care of this patient at this time. Full admission orders will be placed by the primary team. Discharge Plan Departure Patient Disposition: Admitted As Inpatient Clinical Impression: CHF (congestive heart failure), Acute hypercapnic respiratory failure, Multiple fractures of ribs, Hemothorax on left Admit Date/Time: 09/04/24 19:44 Admit Provider: Donnie Castano
--- NOTE | 2024-09-04 16:13 | DI.CT.S_ITS ---
PROCEDURE: CT CHEST ABD PEL WO CON INDICATIONS: fall, ? rib fx, t10 fx, pelvic fx, hemothorax TECHNIQUE: After the administration of oral contrast, 5 mm thick sections acquired from the lung apices to the symphysis pubis. 5 mm thick coronal and sagittal reformats acquired, with additional 7 mm coronal MIP reformats through the lungs. For radiation dose reduction, the following was used: automated exposure control, adjustment of mA and/or kV according to patient size. COMPARISON: [facility], CR, XR CHEST 1V, 09/04/2024, 14:04. [facility], CR, XR HIP W PEL IF DONE RT 2V, 08/12/2024, 13:47. [facility], CR, XR LUMBAR SPINE 2-3V, 08/12/2024, 13:47. FINDINGS: Image quality: Diagnostic. Thyroid: Within normal limits. Cardiac: Heart size within normal limits. No pericardial effusion. Left atrial enlargement. Severe mitral valve calcifications. Moderate coronary artery calcifications. Aorta: Thoracic aortic diameter within normal limits. Pulmonary Artery: Main pulmonary artery diameter within normal limits, although the left and right main pulmonary arteries are dilated up to 2.7 cm. Lungs: No focal lung consolidation. Background of basilar predominant bronchiectasis and interstitial reticulation. Pleura: Small left pleural effusion, likely representing a hemothorax. No pneumothorax. Airways: The trachea and mainstem bronchi are patent. Lymph Nodes: No mediastinal, hilar, or axillary lymphadenopathy. Esophagus: Moderate hiatal hernia. Bones: Diffuse osseous demineralization. Acute, minimally displaced left 6-10th lateral rib fractures. Unchanged grade 1 anterolisthesis of L3 on L4. Chronic-appearing T12 inferior endplate compression fracture with up to 30% height loss (4/92). Chronic right posterior rib fractures (4/121). Peritoneum: No pneumoperitoneum or ascites. Liver: Normal in size and contour. Gallbladder: Status post cholecystectomy. Biliary tree: No intrahepatic or extrahepatic biliary ductal dilatation. Pancreas: Fatty atrophy of the pancreas. Spleen: Normal in size and contour. Kidneys: No hydronephrosis or obstructive urolithiasis. Adrenals: No adrenal nodularity. Bladder: Normal in size and wall thickness. : Status post hysterectomy. No abnormal adnexal masses. Stomach: Normal in size and contour. Bowel: Normal in diameter without any bowel obstruction. Appendix within normal limits (2/125). Lymph Nodes: No retroperitoneal, mesenteric, or inguinal lymphadenopathy. Vascular: No abdominal aortic aneurysm. Moderate aortoiliac atherosclerosis. Soft Tissues: Subcutaneous fat stranding along the left lateral thoracic subcutaneous tissues. IMPRESSION: 1. Acute, minimally displaced fractures of the left 6th-10th lateral ribs with a small left hemothorax and traumatic subcutaneous contusions. No pneumothorax. 2. Severe mitral valve stenosis with subsequent dilatation of the pulmonary arteries and left atrial enlargement. 3. Moderate hiatal hernia. 4. Chronic-appearing T12 inferior endplate compression fracture. 5. No other acute abnormality of the chest/abdomen/pelvis. Dictated by: Yohan Juarez M.D. on 09/04/2024 at 17:30 Approved by: Yohan Juarez M.D. on 09/04/2024 at 17:43
[2024-09-04] MEDS: HYDROMORPHONE 0.5 MG INJ IV ×3 (16:21→23:44)
[2024-09-04] MEDS: FUROSEMIDE 80 MG in SODIUM CHLORIDE 0.9% 50 ML 116 MG IV (17:01)
[2024-09-04] MEDS: LIDOCAINE/PRILOCAINE 5 GM TOP (20:27)
--- NOTE | 2024-09-04 20:46 | EKG_ITS ---
[facility] [address], [place] [address] Test Date: 2024-09-04 Pat Name: iMchela Cao Department: [facility] Room: 205 Gender: Female Placing Judge: : [id number] Requested By: Order Number: [id number] Reading MD: Marcus Buchanan MD Measurements Intervals [place] Rate: 80 P: 51 PA: 216 QRS: 11 QRSD: 92 T: 43 QT: 406 QTc: 468 Interpretive Statements Sinus rhythm with 1st degree AV block Electronically Signed On 09-05-2024 7:20:41 PST by Marcus Buchanan MD
[2024-09-04] MEDS: ATORVASTATIN 20 MG TABLET 80 MG PO (22:25)
[2024-09-04] MEDS: LIDOCAINE 5% PATCH 1 EACH TOP (22:25)
[2024-09-04] MEDS: ACETAMINOPHEN 325 MG TABLET 650 MG PO (22:26)
[2024-09-04] MEDS: OXYCODONE IR 5 MG TABLET PO (22:26)
[2024-09-05] VITALS (9 sets, daily range): BP systolic 115–158; BP diastolic 55–78; PULSE 80–99; RESP 18–20; TEMP 36.3–36.9; O2SAT 93–99
--- NOTE | 2024-09-05 04:17 | P.HP_ITS ---
History of Present Illness History of Present Illness Chief complaint: Fell left side of body pain, cough Narrative: 89 year old female, with past medical history of TIA on Plavix, hyperlipidemia, hypertension, hypothyroidism, and CHF presents with left sided rib pain. Per the patient report, about a week ago, the patient had a mechanical fall in which she was walking with her walker and accidentally fell landed on her left chest. The patient denies any loss of consciousness or hitting her head, but states that she did start to have lab rib cage pain. The patient, however, did not seek any medical help at that time, but stayed at home. The patient states that over the last few days, the patient has an increasing left sided rib cage pain along with some shortness of breath and mild cough. The patient otherwise denies any fever, chills, nausea, vomiting, diarrhea, or focal weakness. In our emergency room, the patient was hemodynamically stable. Labs were relatively benign except for a BNP of 1300s. CT chest abdomen and pelvic shows a small left hemothorax along with nondisplaced 6 to 10th rib fracture. The patient required 2 L of oxygen. The patient was given Lasix 80 mg IV times one along with pain medication and 2 L of oxygen. Our ER physician requested admission to monitor the patient oxygenation as well as possible further diureses. 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 Osteopenia Essential hypertension History of CVA (cerebrovascular accident) CVA (cerebral vascular accident) Surgical History History of hysterectomy History of cholecystectomy History of bilateral breast reduction surgery History of cataract extraction with lens replacement Family History Other Adopted (not a blood relative) Social History household members: none Smoking Status: Former smoker alcohol intake: current Meds Home Medications and Allergies Home Medications Medication Instructions Recorded Confirmed Type rosuvastatin 40 mg tablet 40 mg PO BEDTIME 05/24/19 09/04/24 History clopidogrel 75 mg tablet 75 mg PO DAILY 03/27/23 09/04/24 History gabapentin 300 mg capsule See Rx Instructions .Route .COMPLEX 03/27/23 09/04/24 History acetaminophen 325 mg tablet 975 mg (3 x 325 mg) PO TID #60 tabs 03/29/23 09/04/24 Rx nystatin 100,000 unit/gram topical 1 applic topical BID #45 grams 03/29/23 09/04/24 Rx powder (Nystop) ospemifene 60 mg tablet (Osphena) 60 mg PO DAILY #90 tabs 03/15/24 09/04/24 Rx alendronate 70 mg tablet 70 mg PO WEEKLY 06/02/24 09/04/24 History furosemide 40 mg tablet 40 mg PO DAILY 06/02/24 09/04/24 History levothyroxine 125 mcg tablet 125 mcg PO DAILY 06/02/24 09/04/24 History metoprolol succinate 25 mg 12.5 mg PO BID 06/02/24 09/04/24 History tablet,extended release 24 hr oxybutynin chloride 5 mg tablet 5 mg PO BID 06/02/24 09/04/24 History pantoprazole 40 mg tablet,delayed 40 mg PO DAILY 06/02/24 09/04/24 History release sertraline 50 mg tablet 50 mg PO DAILY 06/02/24 09/04/24 History Allergies Allergy/AdvReac Type Severity Reaction Status Date / Time vibegron AdvReac Intermediate Rash Verified 09/04/24 21:49 Review of Systems Review of Systems ROS: Yes All systems reviewed with the patient and are negative except as otherwise documented Exam Vital Signs (past 8 hours): - 09/04/24 20:30 09/04/24 20:31 09/04/24 20:31 Temperature Pulse Rate 81 80 Respiratory Rate 28 H 31 H Blood Pressure 140/61 Pulse Oximetry 94 94 Oxygen Delivery Method Nasal Cannula Oxygen Flow Rate 1 09/04/24 21:30 09/04/24 22:00 09/04/24 22:49 Temperature 98.3 F Pulse Rate 87 Respiratory Rate 20 Blood Pressure 121/58 L Pulse Oximetry 93 94 Oxygen Delivery Method Nasal Cannula Nasal Cannula Oxygen Flow Rate 2 2 09/05/24 03:00 Temperature 97.7 F Pulse Rate 88 Respiratory Rate 20 Blood Pressure 158/78 H Pulse Oximetry 96 Oxygen Delivery Method Oxygen Flow Rate 2 Oxygen Delivery Method Nasal Cannula Oxygen Flow Rate 2 Narrative Exam Narrative: GENERAL: The patient is not in any acute distressed. Awake and alert. HEENT: Nonicteric sclerae, PERRLA, EOMI. Oropharynx clear. Moist mucous membranes. Conjunctivae appear well perfused. HEART: Regular rate and rhythm without murmurs. No lower extremities edema. LUNGS: Clear to auscultation bilaterally. No wheezing, crackles or rhonchi ABDOMEN: Soft, positive bowel sounds, nontender. SKIN: No rash, no excessive bruising, petechiae, or purpura. NEUROLOGIC: AxO x 3. Cranial nerves II-XII intact without motor/sensory deficit. Objective Labs 09/04/24 14:10 09/04/24 14:10 Labs: Laboratory Results - last 24 hr 09/04/24 14:10 WBC 10.1 RBC 4.53 Hgb 12.5 Hct 38.3 MCV 84.4 MCH 27.5 MCHC 32.6 RDW 16.1 H Plt Count 203 Neut % (Auto) 66.2 Lymph % (Auto) 17.6 L [place] % (Auto) 13.1 Eos % (Auto) 2.9 Baso % (Auto) 0.2 Neut # (Auto) 6700 Lymph # (Auto) 1800 [place] # (Auto) 1300 H Eos # (Auto) 300 Baso # (Auto) 0 PT 12.2 INR 1.1 Sodium 135 L Potassium 3.9 Chloride 99 Carbon Dioxide 27 BUN 34 H Creatinine 2.08 H Estimated GFR 22 L BUN/Creatinine Ratio 16.3 Glucose 94 Lactate 1.9 Calcium 8.9 Total Bilirubin 0.8 AST 22 ALT 13 Alkaline Phosphatase 84 Troponin I < 0.012 NT-Pro-B Natriuret Pep 1330 H Total Protein 8.2 Albumin 4.3 Globulin 3.9 Albumin/Globulin Ratio 1.1 Assessment & Plan Assessment & Plan narrative: Mechanical fall with left sided rib fracture along with small hemothorax. Admit the patient to medical telemetry inpatient. Of note the patient?s fall has been about a week ago now. The patient has no other injury except for these findings. Will continue oxygen, pain, control, incentive spirometry, and monitor patients respiratory and hemodynamic closely. PTOT. If patient respiratory worsen consider repeating stat CT chest. Note patient has been taking plavix daily at home for her stroke in which we will continue but will monitor for worsening bleeding. Respiratory failure with hypoxia. Likely secondary to possible CHF exacerbation and possible hypoventilating due to rip pain. As above underlying causes and monitor oxygenation. Wean down O2 when able. Acute chronic heart failure exacerbation. Unclear of type of heart failure. Note patient had 80 of IV Lasix in the ER. Will resume home Lasix 40 mg PO BID for now. Strict I/Os and daily weight. Will give additional IV Lasix as needed if blood pressure can tolerate. TIA. Resume home Plavix for now and monitor patients hemothorax. Hypertension. Hold home blood pressure medication as blood pressure is low normal. Hypothyroidism. Resume Home Synthroid. Hyperlipidemia. Resume home Statin DVT prophylaxis SCDs and Plavix. Code status DNR/DNI Disposition likely home in two days. Time-Based Coding :: [TOTAL MINUTES] spent with patient and on the chart (including review of chart, obtaining history, exam, reviewing outside data, placing orders, documenting exam and treatment plan, and counseling patient) on [DATE]. Quality VTE Deep Vein Thrombosis/Pulmonary Embolism Present on Admission: No
--- NOTE | 2024-09-05 05:00 | PC.NURSE ---
Pt Oxygen level started to drop down to mid 80's. pt needed to be switched to Oximask from Nasal canula. pt had oxycodone 5 mg po and dilaudid 0.5 mg ivp within a couple of hours from each other due to increase pain, however pt appears to be slightly more confuse but easy to reorient.
[2024-09-05 07:02] LABS: Add Manual Diff / Slide Review NO; Basophils Absolute Auto 100 /uL (0-100); Basophils Percent Auto 0.5 % (0-2); Eosinophils Absolute Auto 300 /uL (0-450); Eosinophils Percent Auto 2.4 % (2-4); Hematocrit 38.8 % (36-46); Hemoglobin 12.8 g/dL (12.0-16.0); Lymphocytes Absolute Auto 2100 /uL (1100-4500); Lymphocytes Percent Auto 19.3 % (25-40); Mean Corpuscular HGB Conc 33.1 % (30-36); Mean Corpuscular Hemoglobin 27.9 PG (26-34); Mean Corpuscular Volume 84.5 fL (80-100); Monocytes Absolute Auto 1400 /uL (0-900); Neutrophils Absolute Auto 7100 /uL (1500-7000); Neutrophils Percent Auto 64.8 % (50-75); Platelet Count 215 X10^3/uL (150-400); Red Blood Cell Count 4.59 X10^6/uL (4.0-5.2); Red Cell Distribution Width 16.1 % (11.6-14.8); White Blood Cell Count 10.9 X10^3/uL (4.5-11.0)
[2024-09-05 07:19] LABS: BUN Creatinine Ratio 17.8 (6-22); Blood Urea Nitrogen 37 mg/dL (7-17); Calcium 8.5 mg/dL (8.4-10.2); Carbon Dioxide 29 mmol/L (22-32); Chloride 98 mmol/L (98-107); Estimated Glomerular Filt Rate 22 mL/min (>60); Glucose 105 mg/dL (80-110); HEMOLYSIS 55 (0-50); Potassium 4.6 mmol/L (3.4-5.1); Sodium 137 mmol/L (137-145)
--- NOTE | 2024-09-05 07:28 | PM.HP.1 ---
History of Present Illness History of Present Illness Date Patient Seen: 09/05/24 Chief complaint: Fell left side of body pain, cough Narrative: From night doctor: 89 year old female, with past medical history of TIA on Plavix, hyperlipidemia, hypertension, hypothyroidism, and CHF presents with left sided rib pain. Per the patient report, about a week ago, the patient had a mechanical fall in which she was walking with her walker and accidentally fell landed on her left chest. The patient denies any loss of consciousness or hitting her head, but states that she did start to have lab rib cage pain. The patient, however, did not seek any medical help at that time, but stayed at home. The patient states that over the last few days, the patient has an increasing left sided rib cage pain along with some shortness of breath and mild cough. The patient otherwise denies any fever, chills, nausea, vomiting, diarrhea, or focal weakness. In our emergency room, the patient was hemodynamically stable. Labs were relatively benign except for a BNP of 1300s. CT chest abdomen and pelvic shows a small left hemothorax along with nondisplaced 6 to 10th rib fracture. The patient required 2 L of oxygen. The patient was given Lasix 80 mg IV times one along with pain medication and 2 L of oxygen. Our ER physician requested admission to monitor the patient oxygenation as well as possible further diureses. Additional information: Today she was having a lot of left-sided thorax pain with any movement, coughing, or deep breathing. She also notes chronic ocular light sensitivity and asked that the room be dark in. She was not short of breath but is on a simple oxygen mask. She denies any abdominal pain, or nausea. 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 Osteopenia Essential hypertension History of CVA (cerebrovascular accident) CVA (cerebral vascular accident) Surgical History History of hysterectomy History of cholecystectomy History of bilateral breast reduction surgery History of cataract extraction with lens replacement Family History Other Adopted (not a blood relative) Social History household members: none Smoking Status: Former smoker alcohol intake: current Meds Home Medications and Allergies Home Medications Medication Instructions Recorded Confirmed Type rosuvastatin 40 mg tablet 40 mg PO BEDTIME 05/24/19 09/04/24 History clopidogrel 75 mg tablet 75 mg PO DAILY 03/27/23 09/04/24 History gabapentin 300 mg capsule See Rx Instructions .Route .COMPLEX 03/27/23 09/04/24 History acetaminophen 325 mg tablet 975 mg (3 x 325 mg) PO TID #60 tabs 03/29/23 09/04/24 Rx nystatin 100,000 unit/gram topical 1 applic topical BID #45 grams 03/29/23 09/04/24 Rx powder (Nystop) ospemifene 60 mg tablet (Osphena) 60 mg PO DAILY #90 tabs 03/15/24 09/04/24 Rx alendronate 70 mg tablet 70 mg PO WEEKLY 06/02/24 09/04/24 History furosemide 40 mg tablet 40 mg PO DAILY 06/02/24 09/04/24 History levothyroxine 125 mcg tablet 125 mcg PO DAILY 06/02/24 09/04/24 History metoprolol succinate 25 mg 12.5 mg PO BID 06/02/24 09/04/24 History tablet,extended release 24 hr oxybutynin chloride 5 mg tablet 5 mg PO BID 06/02/24 09/04/24 History pantoprazole 40 mg tablet,delayed 40 mg PO DAILY 06/02/24 09/04/24 History release sertraline 50 mg tablet 50 mg PO DAILY 06/02/24 09/04/24 History Allergies Allergy/AdvReac Type Severity Reaction Status Date / Time vibegron AdvReac Intermediate Rash Verified 09/04/24 21:49 Review of Systems Review of Systems Narrative: All else reviewed and otherwise unremarkable except as noted in the history and physical. Exam Vital Signs (past 8 hours): - 09/05/24 03:00 Temperature 97.7 F Pulse Rate 88 Respiratory Rate 20 Blood Pressure 158/78 H Pulse Oximetry 96 Oxygen Flow Rate 2 Oxygen Delivery Method Nasal Cannula Oxygen Flow Rate 2 Narrative Exam Narrative: NAD, alert and oriented, fluent speech, calm. Oxygen mask, intermittently very uncomfortable. Normocephalic skull, EOMI, anicteric sclera, symmetric pupils. Oropharynx unremarkable, no droop. Neck supple, midline trachea, no adenopathy. Lungs clear, normal rate and effort. Heart regular, harsh systolic murmur over the left sternal border, and no gallop or rub. Abdomen is soft, non distended and non tender. Extremities are free of edema. Skin is free of rash or lesions. Joints are not swollen or deformed. Judgment appears to be normal. Objective ECG Impression: Sinus rhythm with 1st degree AV block Imaging Multiple studies:: Radiologist's impression: Chest abdomen pelvis CT: 1. Acute, minimally displaced fractures of the left 6th-10th lateral ribs with a small left hemothorax and traumatic subcutaneous contusions. No pneumothorax. 2. Severe mitral valve stenosis with subsequent dilatation of the pulmonary arteries and left atrial enlargement. 3. Moderate hiatal hernia. 4. Chronic-appearing T12 inferior endplate compression fracture. 5. No other acute abnormality of the chest/abdomen/pelvis. Chest x-ray: Left basilar opacity and likely small effusion. Labs 09/05/24 06:40 09/05/24 06:40 Labs: Laboratory Results - last 24 hr 09/04/24 09/05/24 14:10 06:40 WBC 10.1 10.9 RBC 4.53 4.59 Hgb 12.5 12.8 Hct 38.3 38.8 MCV 84.4 84.5 MCH 27.5 27.9 MCHC 32.6 33.1 RDW 16.1 H 16.1 H Plt Count 203 215 Neut % (Auto) 66.2 64.8 Lymph % (Auto) 17.6 L 19.3 L [place] % (Auto) 13.1 13.0 Eos % (Auto) 2.9 2.4 Baso % (Auto) 0.2 0.5 Neut # (Auto) 6700 7100 H Lymph # (Auto) 1800 2100 [place] # (Auto) 1300 H 1400 H Eos # (Auto) 300 300 Baso # (Auto) 0 100 PT 12.2 INR 1.1 Sodium 135 L 137 Potassium 3.9 4.6 Chloride 99 98 Carbon Dioxide 27 29 BUN 34 H 37 H Creatinine 2.08 H 2.08 H Estimated GFR 22 L 22 L BUN/Creatinine Ratio 16.3 17.8 Glucose 94 105 Lactate 1.9 Calcium 8.9 8.5 Total Bilirubin 0.8 AST 22 ALT 13 Alkaline Phosphatase 84 Troponin I < 0.012 NT-Pro-B Natriuret Pep 1330 H Total Protein 8.2 Albumin 4.3 Globulin 3.9 Albumin/Globulin Ratio 1.1 Assessment & Plan Assessment & Plan narrative: 1. Mechanical fall with left sided rib fracture along with small hemothorax. Present on admission and active. 2. Respiratory failure with hypoxia. Present on admission and active. 3. Acute chronic heart failure exacerbation. Present on admission and active. 4. TIA. Present on admission and stable. 5. Hypertension. Not active. Hold home blood pressure medication as blood pressure is low normal. 6. Hypothyroidism. Present on admission and active. 7. Hyperlipidemia. Present on admission and active. PLAN: -oxygen as needed -lidocaine patches for pain control -increase oral pain medication and tightened frequency for improved pain control -physical therapy -routine medications other than holding blood pressure medications. -continue Plavix, monitor bleeding. DVT prophylaxis SCDs and Plavix. Code status DNR/DNI YANG is September 07, anticipate 2 midnights hospital stay with inpatient status. Disposition: Anticipate senior living facility Time-Based Coding :: 35 min spent with patient and on the chart (including review of chart, obtaining history, exam, reviewing outside data, placing orders, documenting exam and treatment plan, and counseling patient) on 09/05. Quality VTE Deep Vein Thrombosis/Pulmonary Embolism Present on Admission: No MIPS - Admit I confirm the patient?s Advance Care Plan is present, Code status is documented, Surrogate decision maker is in patient?s record [If Yes, STOP here]: Yes MIPS - Meds 'Current medications' to include all prescriptions, [id number] products, herbals, cannabis/cannabidiol products, and vitamin/mineral/dietary (nutritional) supplements. I have utilized all available resources to obtain, update, or review the patient?s current medications. [If Yes, STOP here]: Yes
[2024-09-05] MEDS: LEVOTHYROXINE 125 MCG TABLET PO (07:57)
[2024-09-05] MEDS: HYDROCODONE/ACET 5/325 TABLET 1 TAB PO (08:05)
[2024-09-05] MEDS: HYDROMORPHONE 0.5 MG INJ IV ×5 (08:39→20:48)
[2024-09-05] MEDS: SERTRALINE 50 MG TABLET PO (08:41)
[2024-09-05] MEDS: METOPROLOL ER 25 MG TABLET PO (08:42)
[2024-09-05] MEDS: CLOPIDOGREL 75 MG TABLET PO (08:43)
[2024-09-05] MEDS: SODIUM CHLORIDE 0.9% FLUSH 10 ML IV ×2 (08:43→20:49)
[2024-09-05] MEDS: FUROSEMIDE 40 MG TABLET PO ×2 (08:43→20:49)
[2024-09-05] MEDS: ACETAMINOPHEN 325 MG TABLET 650 MG PO ×2 (09:53→19:04)
[2024-09-05] MEDS: OXYCODONE IR 5 MG TABLET PO ×3 (09:53→19:04)
[2024-09-05 11:04] LABS: Adenovirus Not Detected (Not Detect); B. parapertussis Not Detected (Not Detecte); Bordetella pertussis Not Detected (Not Detect); Chlamydophila pneumoniae Not Detected (Not Detect); Coronavirus 229E Not Detected (Not Detect); Coronavirus HKU1 Not Detected (Not Detect); Coronavirus NL 63 Not Detected (Not Detect); Coronavirus OC43 Not Detected (Not Detect); Human Metapneumovirus Not Detected (Not Detect); Human Rhinovirus/Enterovirus Not Detected (Not Detect); Influenza A Not Detected (Not Detect); Influenza B Not Detected (Not Detect); Mycoplasma pneumoniae Not Detected (Not Detect); Parainfluenza Virus 1 Not Detected (Not Detect); Parainfluenza Virus 2 Not Detected (Not Detect); Parainfluenza Virus 3 Not Detected (Not Detect); Parainfluenza Virus 4 Not Detected (Not Detect); Respiratory Syncytial Virus Not Detected (Not Detect); SARS- CoV-2 Not Detected (Not Detecte)
--- NOTE | 2024-09-05 11:40 | PT.IIE ---
Current Diagnoses Fracture of one rib, left side, initial encounter for closed fracture (09/04/24) Surgical History (Last Reviewed 09/05/24 @ 07:29 by Sean Singleton MD) History of bilateral breast reduction surgery History of cataract extraction with lens replacement History of cholecystectomy History of hysterectomy Medical History (Last Reviewed 09/05/24 @ 07:29 by Sean Singleton MD) Chronic sciatica of right side CVA (cerebral vascular accident) Degenerative disc disease Essential hypertension Functional incontinence History of CVA (cerebrovascular accident) History of non-ST elevation myocardial infarction (NSTEMI) Hyperlipidemia 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 Lumbar spinal stenosis Osteopenia Osteopenia Postmenopausal atrophic vaginitis Stenosis of right carotid artery greater than 50% Urge incontinence Physical Therapy Inpatient Evaluation/Re-Eval M1 PT/OT-IP Prior Functional Status Start: 09/05/24 12:54 Freq: NEEDED Status: Active Protocol: Document 09/05/24 11:40 AB (Rec: 09/05/24 13:07 AB [id number]) Medical Review Prior Functional Status Medical History Reviewed Yes Communication LAC VIEUX; able to make needs known Mobility and Gait pt stated that she was modified independent with bed mobility, transfers and ambulation using a FWW in her apartment but she calls for assistance if needed; lives at [facility] and staff assists her with shower needs Social History Household Members none Living Arrangements Assisted Living Number of Floors (Floors) One Floor Number of Stairs To Enter/Railing? pt lives at [facility] Home Environment Standard Height Toilet,Tub/ Shower,Built-In Shower Seat Home Equipment Front Wheel Walker,Bedside Commode,Hand Held Shower,Grab Bars In Shower Additional Social History Comment pt has an adjustable bed M2 PT-IP Current Condition Start: 09/05/24 12:54 Freq: NEEDED Status: Active Protocol: Document 09/05/24 11:40 AB (Rec: 09/05/24 13:07 AB [id number]) Physical Therapy Current Condition Current Condition Evaluation Date 09/05/24 Treatment Diagnosis s/p fall; L rib fx 6-10; L hemothorax; difficulty in walking Onset Date 09/04/24 M3 PT-IP Subjective Start: 09/05/24 12:54 Freq: NEEDED Status: Active Protocol: Document 09/05/24 11:40 AB (Rec: 09/05/24 13:07 [id number]) Subjective Physical Therapy Visit Type Type Initial Evaluation Visit Start Time 11:40 Visit Stop Time 12:20 Number of PROPELLANT ASSEMBLER Visits 0 Physical Therapy Visit Comments Patient Comments agreeable to do PT Therapy Pain Assessment Pain When Pain Assessed At Rest Location left rib Scale Used severe pain; pain scale not stated Pain Management Techniques Distraction,Modification of Treatment,Re-positioning M4 PT-IP Mobility and Gait Start: 09/05/24 12:54 Freq: NEEDED Status: Active Protocol: Document 09/05/24 11:40 AB (Rec: 09/05/24 13:07 [id number]) PT-Bed Mobility Assessment Supine to Sit Supine to Sit Maximum Assistance,1 Person Assistance,Head of Bed Elevated,Bedrails Scooting Scooting to Edge of Bed Maximum Assistance PT-Transfer Assessment Sit to and From Stand Sit to and from Stand Maximum Assistance,2 Person Assistance,Use of Upper Extremities Equipment Transfer Assistive Device Gait Belt,Front Wheeled Walker Orthotic/Prosthetic Devices or Brace: No Transfers Transfer Destination Chair Transfer Technique Stand Step Pivot Transfer Ability Level of Assist Maximum Assistance,2 Person Assistance,Use of Upper Extremities Comments Mobility Comments pt supine in bed and agreed to get up. obtained PLOF and home set up from pt. pt with confusion. pt completed supine to sit with HOB elevated requiring max A x 2 and max cues. max A for sitting on EOB. max A for scooting to EOB. completed sit to stand max A x 2 and cues. step transfer to chair using FWW max A x 2 and cues. pt with h/o CVA with L sided weakness and has L finger contractures and unable to use L hand to stabilize FWW but pt stated she was using a FWW at home. pt needing assistance for maneuvering FWW during transfers. positioned pt on the chair. call light within reach. set up for lunch. left pt with nurse. PT-Balance Assessment Sitting Balance and Reactions Static Sitting Balance Ability Fair Dynamic Sitting Balance Ability Poor Standing Balance and Reactions Static Standing Balance Ability Poor Dynamic Standing Balance Ability Poor Device Used FWW M5 PT-IP Objective Assessments Start: 09/05/24 12:54 Freq: NEEDED Status: Active Protocol: Document 09/05/24 11:40 AB (Rec: 09/05/24 13:07 [id number]) Orientation Orientation/Cognition Level of Alertness Confusional State Orientation Name Language Function Ability Hard of Hearing Safety Awareness Decreased Safety Awareness Memory Description Short Term Impaired Gross Range of Motion Lower Extremity ROM Assessment Within Functional Limits Strength Lower Extremity Strength Assessment Left Impaired Hip 3+/5 Knee 3+/5 M6 PT-IP Treatment Start: 09/05/24 12:54 Freq: NEEDED Status: Active Protocol: Document 09/05/24 11:40 AB (Rec: 09/05/24 13:07 AB [id number]) Physical Therapy Treatment Education Education Provided Safety M7 PT-IP Assessment and Plan Start: 09/05/24 12:54 Freq: NEEDED Status: Active Protocol: Document 09/05/24 11:40 AB (Rec: 09/05/24 13:07 AB [id number]) PT Summary Assessment and Plan Potential Rehabilitation Potential Fair Status of Condition at Evaluation Evolving Summary Impairments Pain,ROM,Strength,Balance, Coordination,Sensation,Tone, Cognition,Bed Mobility, Transfers,Gait,Activity Tolerance Assessment Summary pt is an 89 y/o F s/p fall and sustained a L rib fractures 6 -10 and L hemothorax. pt requiring max A x 2 with bed mobility and transfer using FWW and max cues with all tasks. pt will require SNF rehab to improve strength and function. Goals Bed Mobility Goal Minimal Assistance Transfer Goal Minimal Assistance,Front Wheeled Walker Gait Goal Minimal Assistance,Front Wheel Walker,Colt Walker Gait Distance 50 Other Goals improve bed mobility, transfers and ambulation using LRAD ~ 100 ft SBA Days to Meet Goals 10 Frequency of Treatment Frequency Of Treatment Once a Day Treatment Plan Physical Therapy Treatment Plan Bed Mobility Training,Transfer Training,Gait Training, Therapeutic Exercise,Balance Retraining,Discharge Planning, Hot or Cold Pack,Neuromuscular Re-ed,Coordination Retraining ,Manual Therapy Precautions Other Precautions falls Recommendations To Nursing Amount of Assist Needed 2 Person Assist Discharge Recommendations PT Discharge Recommendations SNF Rehab Transportation Needs at Discharge Wheelchair/Cabulance
--- NOTE | 2024-09-05 14:08 | OT.IP.EVAL ---
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 Lumbar spinal stenosis Osteopenia Osteopenia Postmenopausal atrophic vaginitis Stenosis of right carotid artery greater than 50% Urge incontinence Surgical History (Last Reviewed 09/05/24 @ 07:29 by Sean Singletno MD) History of bilateral breast reduction surgery History of cataract extraction with lens replacement History of cholecystectomy History of hysterectomy Occupational Therapy Inpatient Evaluation/Re-Eval M1 PT/OT-IP Prior Functional Status Start: 09/05/24 12:54 Freq: NEEDED Status: Active Protocol: Document 09/05/24 14:12 [facility] (Rec: 09/05/24 14:26 [facility] [id number]) Medical Review Prior Functional Status Medical History Reviewed Yes Communication [place]; able to make needs known Mobility and Gait pt stated that she was modified independent with bed mobility, transfers and ambulation using a FWW in her apartment but she calls for assistance if needed; lives at [facility] and staff assists her with shower needs Activities of Daily Living and IADL's Pt states does not wears socks , wears shorts at home able to do most of her ADL needs. Pt states is able to call for assist if needed. Social History Household Members none Living Arrangements Assisted Living Number of Floors (Floors) One Floor Number of Stairs To Enter/Railing? pt lives at [facility] Home Environment Standard Height Toilet,Tub/ Shower,Built-In Shower Seat Home Equipment Front Wheel Walker,Bedside Commode,Hand Held Shower,Grab Bars In Shower Additional Social History Comment pt has an adjustable bed Pt states has a lift chair. M2 OT-IP Current Condition Start: 09/05/24 14:11 Freq: Status: Active Protocol: Document 09/05/24 14:12 [facility] (Rec: 09/05/24 14:26 [facility] [id number]) Occupational Therapy Current Condition Current Condition Evaluation Date 09/05/24 Treatment Diagnosis SOB, left 6-10th rib fx Diagnosis Onset Date 09/04/24 M3 OT- IP Subjective and Pain Start: 09/05/24 14:11 Freq: Status: Active Protocol: Document 09/05/24 14:12 [facility] (Rec: 09/05/24 14:26 [facility] [id number]) OT- Subjective Occupational Therapy Visit Type Type Initial Evaluation Visit Start Time 13:33 Visit Stop Time 14:08 Occupational Therapy Visit Comments Patient Comments Pt states wet herself and needing to be changed. Patient/Caregiver Goals TO get better. OT Pain Assessment Pain When Pain Assessed At Rest Pain Present Pain Present Pain Reported Location left rib Intensity 7 Scale Used Numeric (0 - 10) M4 OT- IP ADL's Start: 09/05/24 14:11 Freq: Status: Active Protocol: Document 09/05/24 14:12 [facility] (Rec: 09/05/24 14:26 [facility] [id number]) OT [id number] Comments OT Self-Feeding Comments Pt just using her right hand to eat mainly just using her fingers. OT ADL-Grooming Comments OT Grooming Comments Pt able to wash her face after set-up. OT ADL-Oral Care Comments Oral Care Comments NOt performed. OT ADL-Dressing General Eval Lower Body Dressing Ability Maximum Assistance Areas Needing Assistance Underpants/Brief,Socks OT ADL-Toileting General Evaluation Toileting Ability Total Assistance Areas Needing Assistance Manage Clothing,Perform Perineal Hygiene Comments OT Toileting Comments MAXA x2 to stand initially and then MAXAX1 and use of FWW to hides and skins colorer place and WOOD POLISHER able to assist with all hygiene and brief management needs. OT ADL-Bathing Comments OT Bathing Comments Sponge bath more appropriate at this time. M5 OT- IP IADL's Start: 09/05/24 14:11 Freq: Status: Active Protocol: Document 09/05/24 14:12 [facility] (Rec: 09/05/24 14:26 [facility] [id number]) OT-Instrumental Activities of Daily Living Home Safety Awareness Home Safety Comments Pt aware will need assist but wanting to go home. Medication Management Medication Management Caregiver Administers Money Management Money Management Caregiver Provides Assistance Meal Preparation Meal Preparation Caregiver Provides Assist Lidar Technician Lidar Technician Caregiver Provides Assist M6 OT- IP Functional Cognition Start: 09/05/24 14:11 Freq: Status: Active Protocol: Document 09/05/24 14:12 [facility] (Rec: 09/05/24 14:26 [facility] [id number]) Cognitive Factors Limiting Selfcare Function Cognitive Ability Level of Alertness Alert,Confusional State Patient Orientation Name,Place Attention Span Ability Capable of Focused Attention, Unable to Sustain Attention Ability to Follow Commands Able to Follow One Step Commands with Increased Time, Able to Follow One Step Commands with Repetition Memory Description Short Term Impaired Cognitive Tests SLUMS Pt will benefit from SLUMS, pt scored 21/30 on last visit here 03/29/23. Cognitive Comments Cognitive Assessment Comments Pt needing simple concrete cues to follow. Pt easily distracted and forgetful. Pt perseverating on asking the therapist over and over if needing to sit down and in addition to stating that she loves to eat ham. OT- Vision and Hearing OT- Hearing Assessment OT- Hearing Assessment Right Ear Impaired OT- Vision Assessment Vision History Macular Degeneration Visual Acuity Glasses All The Time M7 OT- IP Mobility and Balance Start: 09/05/24 14:11 Freq: Status: Active Protocol: Document 09/05/24 14:12 [facility] (Rec: 09/05/24 14:26 [facility] [id number]) OT-Transfer Assessment Sit to and From Stand Sit to and from Stand Maximum Assistance,2 Person Assistance Comments Mobility Comments MAX AX 2 to stand to the FWW. Not able to get her left hand on the FWW due to contractures . At this time best to use matteo lift for transfer needs for safety. OT- Balance Assessment Sitting Balance and Reactions Static Sitting Balance Ability Fair Dynamic Sitting Balance Ability Poor Standing Balance and Reactions Static Standing Balance Ability Poor M8 OT- IP Objective Assessments Start: 09/05/24 14:11 Freq: Status: Active Protocol: Document 09/05/24 14:12 [facility] (Rec: 09/05/24 14:26 [facility] [id number]) OT Gross Range of Motion Upper Extremity Range of Motion Assessment Left Impaired OT Strength Upper Extremity Strength Assessment Left Impaired Comments Strength Comments Lue hand contracture and difficulty to open so able to put the left hand on the FWW. Pt refusing to have her left hand cleaned at this time. OT- Coordination Assessment Upper Extremity Finger to Nose Test Left UE Impaired Finger Tapping Test Left UE Impaired OT-Muscle Tone Assessment Comments Muscle Tone Comments Increased tone in RUE. M9 OT- IP Assessment and Plan Start: 09/05/24 14:11 Freq: Status: Active Protocol: Document 09/05/24 14:12 [facility] (Rec: 09/05/24 14:26 [facility] [id number]) OT Summary Assessment and Plan Potential Rehabilitation Potential Good Analytic Complexity at Evaluation Moderate Summary OT Impairments Pain,Strength,Balance,Tone, Functional Cognition, Functional Mobility,Self- Feeding,Grooming,Dressing, Toileting,Bathing,Toilet Transfers,Shower Transfers, Activity Tolerance Progress Towards Goals Slow Progress due to Pain,Slow Progress due to Medical Issues,Slow Progress due to Activity Tolerance,Slow Progress due to Cognition Assessment Summary Pt MOD complexity and main barriers are pain, needing extensive two person assist for mobility needs, on 3L OF O2, and a but confused at this time. Pt will greatly benefit from skilled rehab when medically stable. Goals Grooming Goal Independent Dressing Goal Minimal Assistance Toileting Goal Minimal Assistance Bathing Goal Moderate Assistance Toilet Transfer Goal Contact Guard Assistance Shower Transfer Goal Minimal Assistance Days to Meet Goals 25 Frequency of Treatment Other frequency 5x/week Treatment Plan OT Treatment Plan ADL Training,Functional Cognition Training,Functional Mobility,Patient/Family Education,Discharge Planning Discharge Recommendations OT Discharge Recommendations SNF Rehab Transportation Needs at Discharge Wheelchair/Cabulance
[2024-09-05] MEDS: ALBUTEROL 2.5 MG/3 ML NEB (ADULT) INH (17:21)
[2024-09-05] MEDS: ATORVASTATIN 20 MG TABLET 80 MG PO (20:49)
[2024-09-05] MEDS: GABAPENTIN 600 MG TABLET PO (20:49)
[2024-09-06] VITALS: BP 110/85; PULSE 89; RESP 24; TEMP 35.9; O2SAT 98
[2024-09-06] MEDS: HYDROMORPHONE 0.5 MG INJ IV (00:34)
[2024-09-06 04:00] VITALS: BP 101/72; PULSE 87; RESP 20; TEMP 37.6; O2SAT 95
[2024-09-06] MEDS: OXYCODONE IR 5 MG TABLET PO ×3 (04:24→20:48)
[2024-09-06] MEDS: ACETAMINOPHEN 325 MG TABLET 650 MG PO ×2 (04:24→16:39)
[2024-09-06] MEDS: LEVOTHYROXINE 125 MCG TABLET PO (05:37)
--- NOTE | 2024-09-06 07:28 | P.PN_ITS ---
Subjective Subjective Interval history: S: She has not moved much. She has a fair amount of thorax pain. Fair amount of splinting when she was trying to breathe as well. Exam Vital Signs (past 8 hours): - 09/06/24 00:00 09/06/24 04:00 Temperature 96.7 F L 99.7 F H Pulse Rate 89 87 Respiratory Rate 24 20 Blood Pressure 110/85 101/72 Pulse Oximetry 98 95 Oxygen Flow Rate 2 2 Oxygen Delivery Method Nasal Cannula Oxygen Flow Rate 2 Narrative Exam Narrative: NAD, alert and oriented. Fluent speech. Lungs are clear, normal rate and effort. Heart is regular, no murmur gallop or rub. Abdomen is soft, non distended. Extremities are free of edema. Objective Labs 09/05/24 06:40 09/05/24 06:40 Labs: Laboratory Results - last 24 hr 09/05/24 10:05 Chlamy pneumoniae PCR Not detected Adenovirus (PCR) Not detected B. pertussis DNA (PCR) Not detected B.parapertussis DNA PCR Not detected Coronavirus OC43 (PCR) Not detected Coronavirus HKU1 (PCR) Not detected Coronavirus 229E (PCR) Not detected SARS-CoV-2 (PCR) Not detected Coronavirus NL63 (PCR) Not detected Human Metapneumovir PCR Not detected Influenza Type A (PCR) Not detected Influenza Type B (PCR) Not detected M. 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 Mechanical fall with left sided rib fracture along with small hemothorax. Present on admission and active. 2. Respiratory failure with hypoxia. Present on admission and improved. 3. Acute on chronic heart failure exacerbation. Present on admission and active. 4. TIA. Present on admission and stable. 5. Hypertension. Not active. Hold home blood pressure medication as blood pressure is low normal. 6. Hypothyroidism. Present on admission and active. 7. Hyperlipidemia. Present on admission and active. PLAN: -oxygen as needed -lidocaine patches for pain control -increase oral pain medication and tightened frequency for improved pain control -physical therapy -routine medications other than holding blood pressure medications. -continue Plavix, monitor bleeding. -ECHO to assess cardiac function. DVT prophylaxis SCDs and Plavix. Code status DNR/DNI YANG is September 07, anticipate 2 midnights hospital stay with inpatient status. Disposition: Anticipate care home facility Time-Based Coding :: [TOTAL MINUTES] spent with patient and on the chart (including review of chart, obtaining history, exam, reviewing outside data, placing orders, documenting exam and treatment plan, and counseling patient) on [DATE]. Quality VTE Deep Vein Thrombosis/Pulmonary Embolism Present on Admission: No
[2024-09-06 08:00] VITALS: BP 113/61; PULSE 82; RESP 16; TEMP 37.1; O2SAT 98
[2024-09-06] MEDS: SERTRALINE 50 MG TABLET PO (08:45)
[2024-09-06] MEDS: FUROSEMIDE 40 MG TABLET PO ×2 (08:45→20:47)
[2024-09-06] MEDS: CLOPIDOGREL 75 MG TABLET PO (08:45)
[2024-09-06] MEDS: METOPROLOL ER 25 MG TABLET PO (08:45)
[2024-09-06] MEDS: GABAPENTIN 300 MG CAPSULE PO ×2 (08:45→11:57)
[2024-09-06] MEDS: SODIUM CHLORIDE 0.9% FLUSH 10 ML IV ×2 (08:46→20:48)
--- NOTE | 2024-09-06 10:37 | CM.DANOTE ---
Initial DCP Assessment Visit Note Reviewed EMR and team rounds for status updates. Met with pt at bedside to introduce self and role, pt was found to be somnolent, but oriented to self, minimally oriented to place, but it was difficult to assess. Pt is very [place], her eyes are only partially open, and it appears that she does have some vision deficits. Pt resides modified independently in her own apartment at [facility]. She has no local family, but atkinson have a few friends identified in her medical chart. PT/OT recommending SNF rehab. Explained this recommendation to patient, however she seemed to have a difficult time understanding what rehab was even after several attempts at explaining it. Did send an initial referral to [facility] to review. She will be SNF eligible as of 09/07. Payor: Medicare PCP: Dr. Idalia Bashir Pt is a 89 year-old F with a PMH of CHF, hyperlipidemia, and TIA presented to the ED with family c/o having tripped and fallen several days ago, landing on her L-side. She has been feeling L-sided pain consistently since the fall, and feels more SOB. CT chest showed multiple rib fractures and a small L-hemothorax. She was also found to be having a CHF exacerbation, was hypoxic, and required O2. Goals are to work with therapies, wean off of O2, and d/c to SNF. ASH also left a message for Lluvia at [facility] giving a report update on pt's status, requested return call. DCP will continue to monitor for any further evolving needs prior to d/c to SNF. Discharge Planning/Care Management Advanced directive, confirm from FAMILY Start: 09/04/24 21:32 Freq: Q24H Status: Active Protocol: Document 09/04/24 22:08 MS (Rec: 09/05/24 00:50 MS [id number]) Advance Directive, confirm on record Time 21:00 Person contacted medical record Copy received Yes Advanced directive available on record Yes CM Discharge Assessment Start: 09/06/24 10:30 Freq: Status: Active Protocol: Document 09/06/24 10:31 DPL (Rec: 09/06/24 10:36 DPL [id number]) Discharge Planning Assessment Assigned Rn Palliative Care ASH Molina Advance Directives? Yes Advance Directives on File No History Provided By Patient,Medical Record Has Patient been admitted in last 30 No days? Prior Living Arrangements Assisted Living Household Members none Type of transporation used prior to Relies on Others admit Facility Name Admitted From: [facility] Independent with ADL's No: modified independent with a walker Is patient alert and oriented? Difficult to assess. She is oriented to self, not place. Needs Assistance With Bathing,Meal Prep,Managing Medications,Home Chores / Shopping Caregiver for Another No DME Already Rented / Owned Bath Bench,Elevated Toilet Seat,FWW / Walker,Bedside Commode Comment 4WW, adjustable bed Patient/Family Preference [facility] Facility,Home with Home Health Comment Lives alone, does not have local family, only has [facility] 3 times a week. Discharge Plan [facility] Physical Therapy Referrals Initiated [facility] If patient plan is SNF: Has PASSR been No completed? Inpatient Status as of 09/04/24 Medicare Choice List Provided Yes Medicare choice list reviewed on family electronic tablet with SNF/HH Preference [facility] Has Agency SNF been contacted Yes Whiteboard Updated in Patient Room with Yes name and ext. # of Rn Palliative Care Review Status In Process Please Provide Date Initial DC 09/06/24 Assessment Was Performed
--- NOTE | 2024-09-06 10:55 | PT.IPTN ---
Current Diagnoses Fracture of one rib, left side, initial encounter for closed fracture (09/04/24) Physical Therapy Treatment Note M2 PT-IP Current Condition Start: 09/05/24 12:54 Freq: NEEDED Status: Active Protocol: Document 09/05/24 11:40 AB (Rec: 09/05/24 13:07 AB [id number]) Physical Therapy Current Condition Current Condition Evaluation Date 09/05/24 Treatment Diagnosis s/p fall; L rib fx 6-10; L hemothorax; difficulty in walking Onset Date 09/04/24 M3 PT-IP Subjective Start: 09/05/24 12:54 Freq: NEEDED Status: Active Protocol: Document 09/06/24 11:25 TS (Rec: 09/06/24 11:34 TS [id number]) Subjective Physical Therapy Visit Type Type Treatment Note Visit Start Time 10:55 Visit Stop Time 11:20 Number of SCHOOL BUS MECHANIC Visits 1 Physical Therapy Visit Comments Patient Comments Pt found resting in bed, she is confused. She is agreeable to PT. M4 PT-IP Mobility and Gait Start: 09/05/24 12:54 Freq: NEEDED Status: Active Protocol: Document 09/06/24 11:25 TS (Rec: 09/06/24 11:34 TS [id number]) PT-Bed Mobility Assessment Supine to Sit Supine to Sit Maximum Assistance,2 Person Assistance,Head of Bed Elevated,Bedrails Scooting Scooting to Edge of Bed Maximum Assistance PT-Transfer Assessment Sit to and From Stand Sit to and from Stand Moderate Assistance,2 Person Assistance Equipment Transfer Assistive Device Gait Belt,Front Wheeled Walker Orthotic/Prosthetic Devices or Brace: No Transfers Transfer Destination Chair Transfer Technique Stand Step Pivot Transfer Ability Level of Assist Maximum Assistance,2 Person Assistance,Use of Upper Extremities Comments Mobility Comments Pt resting on 2L's o2 at 96%. Supine to sit MaxA x2, pt has poor sitting balance and requires MaxA to maintain balance at EOB. STS with FWW ModA x2. Pt ambulates to the chair ~2'ModA with FWW, pt unable to radha LUE due to previous stroke. Pt was left in the chair, all needs met. Gait Assessment Gait Gait Assistance Required: Moderate Assistance,2 Person Assist Distance (Feet) 2 Assistive Devices Assistive Device Front Wheeled Walker Gait Deviations General Gait Pattern Decreased Stride Length, Decreased Feet Clearance, Flexed Trunk,Step-to Gait Factors Limiting Gait Function Factors Limiting Gait Function Decreased Activity Tolerance, Decreased Strength,Pain,Poor Balance,Poor Safety Awareness, Respiratory Distress PT-Balance Assessment Sitting Balance and Reactions Static Sitting Balance Ability Fair Dynamic Sitting Balance Ability Poor Standing Balance and Reactions Static Standing Balance Ability Fair Dynamic Standing Balance Ability Poor Device Used FWW M5 PT-IP Objective Assessments Start: 09/05/24 12:54 Freq: NEEDED Status: Active Protocol: Document 09/05/24 11:40 AB (Rec: 09/05/24 13:07 AB [id number]) Orientation Orientation/Cognition Level of Alertness Confusional State Orientation Name Language Function Ability Hard of Hearing Safety Awareness Decreased Safety Awareness Memory Description Short Term Impaired Gross Range of Motion Lower Extremity ROM Assessment Within Functional Limits Strength Lower Extremity Strength Assessment Left Impaired Hip 3+/5 Knee 3+/5 M6 PT-IP Treatment Start: 09/05/24 12:54 Freq: NEEDED Status: Active Protocol: Document 09/06/24 11:25 TS (Rec: 09/06/24 11:34 TS [id number]) Physical Therapy Treatment Education Education Provided Safety M7 PT-IP Assessment and Plan Start: 09/05/24 12:54 Freq: NEEDED Status: Active Protocol: Document 09/06/24 11:25 TS (Rec: 09/06/24 11:34 TS [id number]) PT Summary Assessment and Plan Potential Rehabilitation Potential Fair Summary Impairments Pain,ROM,Strength,Balance, Coordination,Sensation,Tone, Cognition,Bed Mobility, Transfers,Gait,Activity Tolerance Progress Towards Goals Slow Progress - Other Assessment Summary Michela is making slow progress with her mobility. She requires 2 person assist for sitting up into bed and for transfers with FWW to the chair. She is ocnfused but does follow cues and instructions. Spoke with pt about going to rehab, she said she would think about it. She would prefer to go back home to [facility]. PT is recommending SNF at this time. Goals Bed Mobility Goal Minimal Assistance Transfer Goal Minimal Assistance,Front Wheeled Walker Gait Goal Minimal Assistance,Front Wheel Walker,Colt Walker Gait Distance 50 Other Goals improve bed mobility, transfers and ambulation using LRAD ~ 100 ft SBA Days to Meet Goals 10 Frequency of Treatment Frequency Of Treatment Once a Day Treatment Plan Physical Therapy Treatment Plan Bed Mobility Training,Transfer Training,Gait Training, Therapeutic Exercise,Balance Retraining,Discharge Planning, Hot or Cold Pack,Neuromuscular Re-ed,Coordination Retraining ,Manual Therapy Other Recommendations and Next Treatment transfers, gait with FWW as Focus tolerated Precautions Other Precautions falls Recommendations To Nursing Amount of Assist Needed 2 Person Assist Discharge Recommendations PT Discharge Recommendations SNF Rehab Transportation Needs at Discharge Wheelchair/Cabulance
[2024-09-06 11:50] VITALS: BP 101/54; PULSE 79; RESP 16; TEMP 36.3; O2SAT 96
--- NOTE | 2024-09-06 13:39 | OT.IP.TRT ---
Current Diagnoses Fracture of one rib, left side, initial encounter for closed fracture (09/04/24) Occupational Therapy Treatment Note M2 OT-IP Current Condition Start: 09/05/24 14:11 Freq: Status: Active Protocol: Document 09/05/24 14:12 [facility] (Rec: 09/05/24 14:26 [facility] [id number]) Occupational Therapy Current Condition Current Condition Evaluation Date 09/05/24 Treatment Diagnosis SOB, left 6-10th rib fx Diagnosis Onset Date 09/04/24 M3 OT- IP Subjective and Pain Start: 09/05/24 14:11 Freq: Status: Active Protocol: Document 09/06/24 13:32 [facility] (Rec: 09/06/24 13:39 [facility] [id number]) OT- Subjective Occupational Therapy Visit Type Type Treatment Note Visit Start Time 13:00 Visit Stop Time 13:23 Occupational Therapy Visit Comments Patient Comments Pt needing lots of encouragement to brush her teeth and agreed to work on the spirometer. Patient/Caregiver Goals To go home. OT Pain Assessment Pain When Pain Assessed At Rest Pain Present Pain Present Pain Reported Location left rib Pain Behaviors Facial Grimacing,Guarding M4 OT- IP ADL's Start: 09/05/24 14:11 Freq: Status: Active Protocol: Document 09/06/24 13:32 [facility] (Rec: 09/06/24 13:39 [facility] [id number]) OT FCO-Osst-Jtidrht Comments OT Self-Feeding Comments Helping pt to use her left hand to hold the chocolate pudding in place with hand over hand assist. OT ADL-Grooming General Evaluation Grooming Ability Minimal Assistance Areas Needing Assistance Combing/Brushing Hair OT ADL-Oral Care General Eval Oral Care Ability Standby Assistance Comments Oral Care Comments Pt needing set-up assist and orientation of the items. M5 OT- IP IADL's Start: 09/05/24 14:11 Freq: Status: Active Protocol: Document 09/05/24 14:12 [facility] (Rec: 09/05/24 14:26 [facility] [id number]) OT-Instrumental Activities of Daily Living Home Safety Awareness Home Safety Comments Pt aware will need assist but wanting to go home. Medication Management Medication Management Caregiver Administers Money Management Money Management Caregiver Provides Assistance Meal Preparation Meal Preparation Caregiver Provides Assist Supervisor Cutting And Sewing Room Supervisor Cutting And Sewing Room Caregiver Provides Assist M6 OT- IP Functional Cognition Start: 09/05/24 14:11 Freq: Status: Active Protocol: Document 09/06/24 13:32 [facility] (Rec: 09/06/24 13:39 [facility] [id number]) Cognitive Factors Limiting Selfcare Function Cognitive Ability Level of Alertness Confusional State Patient Orientation Name Attention Span Ability Unable to Focus,Unable to Sustain Attention Ability to Follow Commands Able to Follow One Step Commands with Increased Time, Able to Follow One Step Commands with Repetition Memory Description Short Term Impaired Cognitive Comments Cognitive Assessment Comments Pt not aware that she is in the hospital. HAving to convince pt to brush her teeth . Pt needing MAX vc to use the spirometer. M7 OT- IP Mobility and Balance Start: 09/05/24 14:11 Freq: Status: Active Protocol: Document 09/06/24 13:32 [facility] (Rec: 09/06/24 13:39 [facility] [id number]) OT- Balance Assessment Sitting Balance and Reactions Static Sitting Balance Ability Fair M8 OT- IP Objective Assessments Start: 09/05/24 14:11 Freq: Status: Active Protocol: Document 09/05/24 14:12 [facility] (Rec: 09/05/24 14:26 [facility] [id number]) OT Gross Range of Motion Upper Extremity Range of Motion Assessment Left Impaired OT Strength Upper Extremity Strength Assessment Left Impaired Comments Strength Comments Lue hand contracture and difficulty to open so able to put the left hand on the FWW. Pt refusing to have her left hand cleaned at this time. OT- Coordination Assessment Upper Extremity Finger to Nose Test Left UE Impaired Finger Tapping Test Left UE Impaired OT-Muscle Tone Assessment Comments Muscle Tone Comments Increased tone in RUE. M9 OT- IP Assessment and Plan Start: 09/05/24 14:11 Freq: Status: Active Protocol: Document 09/06/24 13:32 [facility] (Rec: 09/06/24 13:39 [facility] [id number]) OT Summary Assessment and Plan Potential Rehabilitation Potential Good Analytic Complexity at Evaluation Moderate Summary OT Impairments Pain,Strength,Balance,Tone, Functional Cognition, Functional Mobility,Self- Feeding,Grooming,Dressing, Toileting,Bathing,Toilet Transfers,Shower Transfers, Activity Tolerance Progress Towards Goals Slow Progress due to Pain,Slow Progress due to Medical Issues,Slow Progress due to Activity Tolerance,Slow Progress due to Cognition Assessment Summary Pt still somewhat confused and thinking in was the evening versus the afternoon. Pt to convince and talk pt into brushing her teeth and doing grooming needs. Goals Grooming Goal Independent Dressing Goal Minimal Assistance Toileting Goal Minimal Assistance Bathing Goal Moderate Assistance Toilet Transfer Goal Minimal Assistance Shower Transfer Goal Minimal Assistance Days to Meet Goals 25 Frequency of Treatment Other frequency 5x/week Treatment Plan OT Treatment Plan ADL Training,Functional Cognition Training,Functional Mobility,Patient/Family Education,Discharge Planning Discharge Recommendations OT Discharge Recommendations SNF Rehab Transportation Needs at Discharge Wheelchair/Cabulance
[2024-09-06 16:00] VITALS: BP 100/49; PULSE 76; RESP 17; TEMP 36.1; O2SAT 97
[2024-09-06 20:00] VITALS: BP 107/63; PULSE 80; RESP 22; TEMP 36.6; O2SAT 95
[2024-09-06] MEDS: ATORVASTATIN 20 MG TABLET 80 MG PO (20:47)
[2024-09-06] MEDS: GABAPENTIN 600 MG TABLET PO (20:47)
[2024-09-06] MEDS: LIDOCAINE 5% PATCH 1 EACH TOP (20:47)
[2024-09-07] VITALS (9 sets, daily range): BP systolic 106–136; BP diastolic 53–81; PULSE 72–84; RESP 15–20; TEMP 36.4–37.4; O2SAT 96–99
[2024-09-07] MEDS: OXYCODONE IR 5 MG TABLET PO ×3 (00:06→14:44)
[2024-09-07] MEDS: ACETAMINOPHEN 325 MG TABLET 650 MG PO ×4 (00:07→21:04)
[2024-09-07] MEDS: LEVOTHYROXINE 125 MCG TABLET PO (05:32)
--- NOTE | 2024-09-07 07:35 | PC.NURSE ---
Patient is confused, last evening oriented to name, birthday, and year. Labile mood. At midnight patient became increasingly confused, paranoid, yelling at staff, resisting cares, stated several times I'm going to report you to the investigative journalists, you can't keep me locked up here. After snacks and beverages given per patient request, patient pushed bedside table over, dumping everything onto the floor including the table. Patient then calmed down and has been fairly calm for the remainder of the night. Patient finally fell asleep around 0630.
[2024-09-07] MEDS: METOPROLOL ER 25 MG TABLET PO (08:24)
[2024-09-07] MEDS: GABAPENTIN 300 MG CAPSULE PO (08:24)
[2024-09-07] MEDS: FUROSEMIDE 40 MG TABLET PO ×2 (08:26→21:04)
[2024-09-07] MEDS: SODIUM CHLORIDE 0.9% FLUSH 10 ML IV ×2 (08:26→21:05)
[2024-09-07] MEDS: CLOPIDOGREL 75 MG TABLET PO (08:26)
[2024-09-07] MEDS: SERTRALINE 50 MG TABLET PO (08:26)
--- NOTE | 2024-09-07 10:18 | CM.DPC ---
DCP Cont. Reviewed EMR and team rounds for status updates. Pt was scheduled to go to [facility] today, however last night she had an episode of what sounds like owning, and became paranoid/aggressive towards staff, and dumped her food tray/table. She will now need to be free of those behaviors for 24-hours before they can accept her. They can accept her on Wednesday at noon is she remains stable. POWERHOUSE LABORER entered the room to find patient smiling, pleasant, and expressed looking forward to going to rehab. She was eating her meal and presented as much more alert/mentally intact than she had yesterday. Will continue to monitor.
--- NOTE | 2024-09-07 10:22 | P.PN_ITS ---
Subjective Subjective Interval history: Summary: This is an 89-year-old female who had a mechanical fall with multiple left-sided rib fractures and a small hemothorax. She was initially hypoxemic, this is improving and her pain control is improving. She was set up to go to unit a custodial facility on September 07 but had some agitation on the evening of September 06 which we will delay her discharge. S: This morning, she was doing much better. She was friendly and engaging. She was not agitated, and agrees to go to rehab to continue to improve. Her pain is 4/10. Exam Vital Signs (past 8 hours): - 09/07/24 04:00 09/07/24 08:00 09/07/24 08:24 Temperature 99.4 F 97.5 F L Pulse Rate 72 75 75 Respiratory Rate 18 15 Blood Pressure 114/66 123/63 135/81 Pulse Oximetry 99 97 Oxygen Delivery Method Oxygen Flow Rate 2 2 09/07/24 08:49 09/07/24 09:00 09/07/24 09:58 Temperature Pulse Rate 72 Respiratory Rate Blood Pressure Pulse Oximetry 96 Oxygen Delivery Method Nasal Cannula Nasal Cannula Oxygen Flow Rate 2 Oxygen Delivery Method Nasal Cannula Oxygen Flow Rate 2 Narrative Exam Narrative: NAD, fluent speech. Lungs are clear, normal effort. The left lateral thorax is somewhat tender to palpation. Heart is regular, harsh systolic murmur at the left sternal border. This is stable. Abdomen is soft, non distended. No leg edema. 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 Mechanical fall with left sided rib fracture along with small hemothorax. Present on admission and improving. 2. Respiratory failure with hypoxia. Present on admission and improving. 3. Acute on chronic diastolic heart failure exacerbation. Present on admission and improving. 4. TIA. Present on admission and stable. 5. Hypertension. Not active. Hold home blood pressure medication as blood pressure is low normal. 6. Hypothyroidism. Present on admission and active. 7. Hyperlipidemia. Present on admission and active. 8. Severe aortic stenosis, Present on admission and stable. PLAN: -oxygen as needed, wean as able. -lidocaine patches for pain control, continue. -pain medications are stable. -physical therapy -routine medications other than holding blood pressure medications. -continue Plavix, monitor bleeding. -ECHO (12/19/22): The ejection fraction is estimated to be 65-70%. Diastolic function could not be accurately assessed due to confounding valvular disease. The left atrium is severely dilated. The right ventricle is normal in size and function. There is moderate mitral stenosis. There is mild mitral regurgitation. There is severe aortic stenosis. There is mild tricuspid regurgitation. Pulmonary artery pressures cannot be estimated because of the lack of a measurable TR jet velocity. Compared to the prior study dated 05/24/2019, the aortic and mitral valve gradients have increased. DVT prophylaxis SCDs and Plavix. Code status DNR/DNI YANG is September 08, Has been in the hospital for 2 midnights hospital stay with inpatient status. Time-Based Coding :: [TOTAL MINUTES] spent with patient and on the chart (including review of chart, obtaining history, exam, reviewing outside data, placing orders, documenting exam and treatment plan, and counseling patient) on [DATE]. Quality VTE Deep Vein Thrombosis/Pulmonary Embolism Present on Admission: No
--- NOTE | 2024-09-07 14:42 | OT.IPNOTE ---
Attempted to see pt and pt needing to be cleaned up. Nursing notified.
--- NOTE | 2024-09-07 16:11 | PT.IPTN ---
Current Diagnoses Fracture of one rib, left side, initial encounter for closed fracture (09/04/24) Physical Therapy Treatment Note M2 PT-IP Current Condition Start: 09/05/24 12:54 Freq: NEEDED Status: Active Protocol: Document 09/05/24 11:40 AB (Rec: 09/05/24 13:07 AB [id number]) Physical Therapy Current Condition Current Condition Evaluation Date 09/05/24 Treatment Diagnosis s/p fall; L rib fx 6-10; L hemothorax; difficulty in walking Onset Date 09/04/24 M3 PT-IP Subjective Start: 09/05/24 12:54 Freq: NEEDED Status: Active Protocol: Document 09/07/24 16:28 TS (Rec: 09/07/24 16:34 TS [id number]) Subjective Physical Therapy Visit Type Type Treatment Note Visit Start Time 16:11 Visit Stop Time 16:27 Number of CHANGE MANAGEMENT ADMINISTRATOR Visits 2 Physical Therapy Visit Comments Patient Comments Pt found resting in bed, she is agreeable to PT. M4 PT-IP Mobility and Gait Start: 09/05/24 12:54 Freq: NEEDED Status: Active Protocol: Document 09/07/24 16:28 TS (Rec: 09/07/24 16:34 TS [id number]) PT-Bed Mobility Assessment Supine to Sit Supine to Sit Maximum Assistance,2 Person Assistance,Head of Bed Elevated,Bedrails Scooting Scooting to Edge of Bed Maximum Assistance PT-Transfer Assessment Sit to and From Stand Sit to and from Stand Moderate Assistance,2 Person Assistance Equipment Transfer Assistive Device Gait Belt,Front Wheeled Walker Orthotic/Prosthetic Devices or Brace: No Transfers Transfer Destination Chair Transfer Technique Stand Step Pivot Transfer Ability Level of Assist Maximum Assistance,2 Person Assistance,Use of Upper Extremities Comments Mobility Comments Supine to sit MaxA x2, cues provided for handrail assist, unable to assist with LUE due to prior stroke. Scoots to EOB MaxA with use of transfer pad . STS with FWW MAxA x2. Pt requires assist with moving of FWW during transfer to chair. Pt was left in the chair, all needs met. Gait Assessment Gait Gait Assistance Required: Maximum Assistance,2 Person Assist Distance (Feet) 2 Assistive Devices Assistive Device Front Wheeled Walker Gait Deviations General Gait Pattern Decreased Stride Length, Decreased Feet Clearance, Flexed Trunk,Step-to Gait Factors Limiting Gait Function Factors Limiting Gait Function Decreased Activity Tolerance, Decreased Strength,Pain,Poor Balance,Poor Safety Awareness, Respiratory Distress PT-Balance Assessment Sitting Balance and Reactions Static Sitting Balance Ability Fair Dynamic Sitting Balance Ability Poor Standing Balance and Reactions Static Standing Balance Ability Fair Dynamic Standing Balance Ability Poor Device Used FWW M5 PT-IP Objective Assessments Start: 09/05/24 12:54 Freq: NEEDED Status: Active Protocol: Document 09/05/24 11:40 AB (Rec: 09/05/24 13:07 AB [id number]) Orientation Orientation/Cognition Level of Alertness Confusional State Orientation Name Language Function Ability Hard of Hearing Safety Awareness Decreased Safety Awareness Memory Description Short Term Impaired Gross Range of Motion Lower Extremity ROM Assessment Within Functional Limits Strength Lower Extremity Strength Assessment Left Impaired Hip 3+/5 Knee 3+/5 M6 PT-IP Treatment Start: 09/05/24 12:54 Freq: NEEDED Status: Active Protocol: Document 09/07/24 16:28 TS (Rec: 09/07/24 16:34 TS [id number]) Physical Therapy Treatment Education Education Provided Safety M7 PT-IP Assessment and Plan Start: 09/05/24 12:54 Freq: NEEDED Status: Active Protocol: Document 09/07/24 16:28 TS (Rec: 09/07/24 16:34 TS [id number]) PT Summary Assessment and Plan Potential Rehabilitation Potential Fair Summary Impairments Pain,ROM,Strength,Balance, Coordination,Sensation,Tone, Cognition,Bed Mobility, Transfers,Gait,Activity Tolerance Progress Towards Goals Slow Progress - Other Assessment Summary Michela continues to make slow progress with her mobility. She is MaxA for bed mobility x2. She requires MaxA with use of FWW for transfers to the chair. She has some confusion but follows instructions well. PT continues to recommend SNF . Goals Bed Mobility Goal Minimal Assistance Transfer Goal Minimal Assistance,Front Wheeled Walker Gait Goal Minimal Assistance,Front Wheel Walker,Colt Walker Gait Distance 50 Other Goals improve bed mobility, transfers and ambulation using LRAD ~ 100 ft SBA Days to Meet Goals 10 Frequency of Treatment Frequency Of Treatment Once a Day Treatment Plan Physical Therapy Treatment Plan Bed Mobility Training,Transfer Training,Gait Training, Therapeutic Exercise,Balance Retraining,Discharge Planning, Hot or Cold Pack,Neuromuscular Re-ed,Coordination Retraining ,Manual Therapy Precautions Other Precautions falls Recommendations To Nursing Amount of Assist Needed 2 Person Assist Discharge Recommendations PT Discharge Recommendations SNF Rehab Transportation Needs at Discharge Wheelchair/Cabulance
[2024-09-07] MEDS: LIDOCAINE 5% PATCH 1 EACH TOP (21:04)
[2024-09-07] MEDS: ATORVASTATIN 20 MG TABLET 80 MG PO (21:04)
[2024-09-07] MEDS: GABAPENTIN 600 MG TABLET PO (21:04)
[2024-09-08] VITALS (9 sets, daily range): BP systolic 98–141; BP diastolic 46–70; PULSE 64–81; RESP 15–18; TEMP 36.2–37.2; O2SAT 95–99
[2024-09-08] MEDS: LEVOTHYROXINE 125 MCG TABLET PO (05:52)
[2024-09-08] MEDS: OXYCODONE IR 5 MG TABLET PO ×2 (06:23→11:02)
--- NOTE | 2024-09-08 06:59 | PC.NURSE ---
Patient requiring 2 L oxygen through the night, desats to high 80's on RA.
[2024-09-08] MEDS: CLOPIDOGREL 75 MG TABLET PO (08:51)
[2024-09-08] MEDS: FUROSEMIDE 40 MG TABLET PO ×2 (08:51→21:07)
[2024-09-08] MEDS: GABAPENTIN 300 MG CAPSULE PO ×2 (08:51→12:05)
[2024-09-08] MEDS: METOPROLOL ER 25 MG TABLET PO (08:51)
[2024-09-08] MEDS: SERTRALINE 50 MG TABLET PO (08:51)
[2024-09-08] MEDS: ACETAMINOPHEN 325 MG TABLET 650 MG PO ×2 (08:51→21:07)
[2024-09-08] MEDS: SODIUM CHLORIDE 0.9% FLUSH 10 ML IV ×2 (09:07→21:08)
--- NOTE | 2024-09-08 10:43 | OT.IP.TRT ---
Current Diagnoses Fracture of one rib, left side, initial encounter for closed fracture (09/04/24) Occupational Therapy Treatment Note M2 OT-IP Current Condition Start: 09/05/24 14:11 Freq: Status: Active Protocol: Document 09/05/24 14:12 [facility] (Rec: 09/05/24 14:26 [facility] [id number]) Occupational Therapy Current Condition Current Condition Evaluation Date 09/05/24 Treatment Diagnosis SOB, left 6-10th rib fx Diagnosis Onset Date 09/04/24 M3 OT- IP Subjective and Pain Start: 09/05/24 14:11 Freq: Status: Active Protocol: Document 09/08/24 10:57 [facility] (Rec: 09/08/24 11:02 [facility] [id number]) OT- Subjective Occupational Therapy Visit Type Type Treatment Note Visit Start Time 10:33 Visit Stop Time 10:43 Occupational Therapy Visit Comments Patient Comments Attempted to get pt up. Patient/Caregiver Goals Pt wanting to go home. OT Pain Assessment Pain When Pain Assessed At Rest Pain Present Pain Present Denied Pain M6 OT- IP Functional Cognition Start: 09/05/24 14:11 Freq: Status: Active Protocol: Document 09/08/24 10:57 [facility] (Rec: 09/08/24 11:02 [facility] [id number]) Cognitive Factors Limiting Selfcare Function Cognitive Ability Level of Alertness Confusional State Patient Orientation Name Attention Span Ability Unable to Focus,Unable to Sustain Attention Ability to Follow Commands Able to Follow One Step Commands with Increased Time, Able to Follow One Step Commands with Repetition Memory Description Short Term Impaired Cognitive Comments Cognitive Assessment Comments Pt very distracted today and focused on trying to see Kalpana and initially agreed to get up and then changed her mind. Pt mainly just orientated to her name- unaware that she is in the hospital or in a hospital bed. M7 OT- IP Mobility and Balance Start: 09/05/24 14:11 Freq: Status: Active Protocol: Document 09/08/24 10:57 [facility] (Rec: 09/08/24 11:02 [facility] [id number]) OT-Transfer Assessment Comments Mobility Comments Pt initially initiated to move her legs to the edge of the bed and then stopped. M8 OT- IP Objective Assessments Start: 09/05/24 14:11 Freq: Status: Active Protocol: Document 09/05/24 14:12 [facility] (Rec: 09/05/24 14:26 [facility] [id number]) OT Gross Range of Motion Upper Extremity Range of Motion Assessment Left Impaired OT Strength Upper Extremity Strength Assessment Left Impaired Comments Strength Comments Lue hand contracture and difficulty to open so able to put the left hand on the FWW. Pt refusing to have her left hand cleaned at this time. OT- Coordination Assessment Upper Extremity Finger to Nose Test Left UE Impaired Finger Tapping Test Left UE Impaired OT-Muscle Tone Assessment Comments Muscle Tone Comments Increased tone in RUE. M9 OT- IP Assessment and Plan Start: 09/05/24 14:11 Freq: Status: Active Protocol: Document 09/08/24 10:57 [facility] (Rec: 09/08/24 11:02 [facility] [id number]) OT Summary Assessment and Plan Potential Rehabilitation Potential Fair Analytic Complexity at Evaluation Moderate Summary OT Impairments Pain,Strength,Balance,Tone, Functional Cognition, Functional Mobility,Self- Feeding,Grooming,Dressing, Toileting,Bathing,Toilet Transfers,Shower Transfers, Activity Tolerance Progress Towards Goals Slow Progress due to Pain,Slow Progress due to Medical Issues,Slow Progress due to Activity Tolerance,Slow Progress due to Cognition Assessment Summary Pt still confused and initially agreeing to get up and then refused. Pt focused on trying to talk to Kalpana who was not in the room. Pt to go to skilled rehab when medically stable. Goals Grooming Goal Independent Dressing Goal Minimal Assistance Toileting Goal Minimal Assistance Bathing Goal Moderate Assistance Toilet Transfer Goal Minimal Assistance Shower Transfer Goal Minimal Assistance Days to Meet Goals 25 Frequency of Treatment Other frequency 5x/week Treatment Plan OT Treatment Plan ADL Training,Functional Cognition Training,Functional Mobility,Patient/Family Education,Discharge Planning Other Treatment Recommendations and Next SLUM when more alert and clear Treatment Focus Discharge Recommendations OT Discharge Recommendations SNF Rehab Transportation Needs at Discharge Wheelchair/Cabulance
--- NOTE | 2024-09-08 10:55 | PT-IP ANOTE ---
Pt initially agreed to PT but changed her mind when attempting to sit up to EOB. She states she wants her cellphone and will not move until Kalpana gets here.
--- NOTE | 2024-09-08 14:14 | CM.DPC ---
Addendum entered by ASH Rodrigues 09/08/24 15:00: BRITTA Updated: DCP discussed alternative placement for pt with POA, second preference has been identified as [facility]. DCP called [facility], it was identified by Attorney Lawyer, Lucia, that there are female beds available. DCP sent a clinical packet for review via secure email. DCP discussed the above with hospitalist, it was reported that pt is still confused and would benefit from further treatment and observation at this time. Plan: Pending acceptance at [facility], CM team following for discharge coordination. GILDA Delatorre Original Note: DCP Continued: Reviewed EMR and team rounds for pt?s medical status. Per nursing staff, patient has been stable and preparing for anticipated discharge to [facility] today. DCP spoke with [facility] admissions and they stated that pt is no longer being accepted after an administrative review due to agitation towards staff. DCP relayed this to hospitalist and pt's POA, Michela Rivas. There was no other choice made for an alternative placement, DCP conferred with pt POA who stated pt will be upset that she will not be able to discharge to first choice. Pt has been to this facility 2 times in the past. DCP discussed with POA three other Medicare certified facilities and they will review with patient via phone. Plan: Attempting other SNF placement vs. monitor pt progress if she can discharge back to prior living ([facility]) with home health. CM Team will continue to follow for coordination of discharge plans. GILDA Delatorre
--- NOTE | 2024-09-08 15:10 | PT.IPTN ---
Current Diagnoses Fracture of one rib, left side, initial encounter for closed fracture (09/04/24) Physical Therapy Treatment Note M2 PT-IP Current Condition Start: 09/05/24 12:54 Freq: NEEDED Status: Active Protocol: Document 09/05/24 11:40 [facility] (Rec: 09/05/24 13:07 AB [id number]) Physical Therapy Current Condition Current Condition Evaluation Date 09/05/24 Treatment Diagnosis s/p fall; L rib fx 6-10; L hemothorax; difficulty in walking Onset Date 09/04/24 M3 PT-IP Subjective Start: 09/05/24 12:54 Freq: NEEDED Status: Active Protocol: Document 09/08/24 15:10 [facility] (Rec: 09/08/24 17:44 AB [id number]) Subjective Physical Therapy Visit Type Type Treatment Note Visit Start Time 15:10 Visit Stop Time 15:30 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 0 Physical Therapy Visit Comments Patient Comments agreeable to do PT M4 PT-IP Mobility and Gait Start: 09/05/24 12:54 Freq: NEEDED Status: Active Protocol: Document 09/08/24 15:10 [facility] (Rec: 09/08/24 17:44 AB [id number]) PT-Bed Mobility Assessment Supine to Sit Supine to Sit Maximum Assistance,1 Person Assistance,2 Person Assistance ,Head of Bed Elevated,Bedrails PT-Transfer Assessment Sit to and From Stand Sit to and from Stand Maximum Assistance,2 Person Assistance,Use of Upper Extremities Equipment Transfer Assistive Device Gait Belt,Front Wheeled Walker Orthotic/Prosthetic Devices or Brace: No Transfers Transfer Destination Chair Transfer Technique Stand Step Pivot Transfer Ability Level of Assist Maximum Assistance,2 Person Assistance,Use of Upper Extremities Comments Mobility Comments pt supine in bed and agreeable to get up. completed supine to sit max A x 1-2 and max cues. HOB elevated. pt with increase posterior trunk lean. pt requiring max cues with all tasks. pt completed sit to stand from EOB max A x 2 and max cues. assisted pt with putting shoes on. needed 2 attempts to stand up. completed step transfer to chair using FWW max A x 2 and max cues. positioned pt on the chair. call light and table placed within reach. M5 PT-IP Objective Assessments Start: 09/05/24 12:54 Freq: NEEDED Status: Active Protocol: Document 11/12/24 11:40 [facility] (Rec: 09/05/24 13:07 AB [id number]) Orientation Orientation/Cognition Level of Alertness Confusional State Orientation Name Language Function Ability Hard of Hearing Safety Awareness Decreased Safety Awareness Memory Description Short Term Impaired Gross Range of Motion Lower Extremity ROM Assessment Within Functional Limits Strength Lower Extremity Strength Assessment Left Impaired Hip 3+/5 Knee 3+/5 M6 PT-IP Treatment Start: 09/05/24 12:54 Freq: NEEDED Status: Active Protocol: Document 09/08/24 15:10 [facility] (Rec: 09/08/24 17:44 AB [id number]) Physical Therapy Treatment Education Education Provided Safety M7 PT-IP Assessment and Plan Start: 09/05/24 12:54 Freq: NEEDED Status: Active Protocol: Document 09/08/24 15:10 [facility] (Rec: 09/08/24 17:44 AB [id number]) PT Summary Assessment and Plan Potential Rehabilitation Potential Fair Summary Impairments Pain,ROM,Strength,Balance, Coordination,Sensation,Tone, Cognition,Bed Mobility, Transfers,Gait,Activity Tolerance Progress Towards Goals Slow Progress due to Medical Issues,Slow Progress due to Activity Tolerance Assessment Summary pt requiring max A x 2 for mobility and will require SNF rehab to improve overall strength and mobility. will continue to assess progress. Goals Bed Mobility Goal Minimal Assistance Transfer Goal Minimal Assistance,Front Wheeled Walker Gait Goal Minimal Assistance,Front Wheel Walker,Colt Walker Gait Distance 50 Other Goals improve bed mobility, transfers and ambulation using LRAD ~ 100 ft SBA Days to Meet Goals 10 Frequency of Treatment Frequency Of Treatment Once a Day Treatment Plan Physical Therapy Treatment Plan Bed Mobility Training,Transfer Training,Gait Training, Therapeutic Exercise,Balance Retraining,Discharge Planning, Hot or Cold Pack,Neuromuscular Re-ed,Coordination Retraining ,Manual Therapy Precautions Other Precautions falls Recommendations To Nursing Amount of Assist Needed 2 Person Assist Discharge Recommendations PT Discharge Recommendations SNF Rehab Transportation Needs at Discharge Wheelchair/Cabulance
--- NOTE | 2024-09-08 15:16 | PM.PN.1 ---
Subjective Subjective Date Patient Seen: 09/08/24 Time Patient Seen: 13:43 Interval history: Summary: This is an 89-year-old female who had a mechanical fall with multiple left-sided rib fractures and a small hemothorax. She was initially hypoxemic, this is improving and her pain control is improving. She was set up to go to [facility] on September 07 but had some agitation on the evening of September 06 which we will delay her discharge. S: The patient appears confused, stating there are Martians that are coming to visit her and readily admits to having hallucinations. She is confused about her location, stating she [place], and the year is 3. Exam Vital Signs (past 8 hours): - 09/08/24 07:25 09/08/24 08:00 09/08/24 08:51 Temperature 97.6 F Pulse Rate 71 72 Respiratory Rate 16 Blood Pressure 141/69 H 141/69 H Pulse Oximetry 97 98 Oxygen Delivery Method Nasal Cannula Oxygen Flow Rate 2 2 09/08/24 09:00 09/08/24 10:07 09/08/24 12:00 Temperature 97.2 F L Pulse Rate 71 64 Respiratory Rate 15 Blood Pressure 100/59 L Pulse Oximetry 99 Oxygen Delivery Method Nasal Cannula Oxygen Flow Rate 2 Oxygen Delivery Method Nasal Cannula Oxygen Flow Rate 2 Narrative Exam Narrative: NAD, fluent speech. Lungs are clear, normal effort. The left lateral thorax is somewhat tender to palpation. Heart is regular, harsh systolic murmur at the left sternal border. This remains stable. Abdomen is soft, non distended. No leg edema. 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 Mechanical fall with left sided rib fracture along with small hemothorax. Present on admission and improving. 2. Respiratory failure with hypoxia. Present on admission and improving. 3. Acute on chronic diastolic heart failure exacerbation. Present on admission and improving. 4. Delirium. No known history of dementia. Stop psycho-active medications gabapentin, oxycodone and hydromorphone due to delirium. 5. TIA. Present on admission and stable. 6. Hypertension. Not active. Hold home blood pressure medication as blood pressure is low normal. 7. Hypothyroidism. Present on admission and active. 8. Hyperlipidemia. Present on admission and active. 9. Severe aortic stenosis, Present on admission and stable. PLAN: -stop gabapentin, oxycodone and hydromorphone due to delirium -oxygen as needed, wean as able. -lidocaine patches for pain control, continue. -physical therapy -routine medications other than holding blood pressure medications. -continue Plavix, monitor bleeding. -ECHO (12/19/22): The ejection fraction is estimated to be 65-70%. Diastolic function could not be accurately assessed due to confounding valvular disease. The left atrium is severely dilated. The right ventricle is normal in size and function. There is moderate mitral stenosis. There is mild mitral regurgitation. There is severe aortic stenosis. There is mild tricuspid regurgitation. Pulmonary artery pressures cannot be estimated because of the lack of a measurable TR jet velocity. Compared to the prior study dated 05/24/2019, the aortic and mitral valve gradients have increased. DVT prophylaxis SCDs and Plavix. Code status DNR/DNI YANG is September 09, Has been in the hospital for 2 midnights hospital stay with inpatient status. Time-Based Coding :: [TOTAL MINUTES] spent with patient and on the chart (including review of chart, obtaining history, exam, reviewing outside data, placing orders, documenting exam and treatment plan, and counseling patient) on [DATE]. Quality VTE Deep Vein Thrombosis/Pulmonary Embolism Present on Admission: No
[2024-09-08] MEDS: LIDOCAINE 5% PATCH 1 EACH TOP (21:07)
[2024-09-08] MEDS: ATORVASTATIN 20 MG TABLET 80 MG PO (21:07)
[2024-09-09] VITALS (7 sets, daily range): BP systolic 116–156; BP diastolic 57–86; PULSE 70–82; RESP 15–18; TEMP 35.8–36.9; O2SAT 90–99
[2024-09-09] MEDS: LEVOTHYROXINE 125 MCG TABLET PO (05:50)
--- NOTE | 2024-09-09 07:25 | PM.PN.1 ---
Subjective Subjective Date Patient Seen: 09/09/24 Time Patient Seen: 10:30 Interval history: Summary: This is an 89-year-old female who had a mechanical fall with multiple left-sided rib fractures and a small hemothorax. She was initially hypoxemic, this is improving and her pain control is improving. She was set up to go to [facility] halfway facility on September 07 but had some agitation on the evening of September 06 which we will delay her discharge. S: The patient remains confused, stating there are Martians that are coming to visit her and admits to having hallucinations, and overnight was striking out at staff. She responded to lorazepam this morning calming and sleeping. This is reviewed by phone with her friend Michela Rivas who was also durable [id number] who notes that this is very unusual for her, and that there has been no underlying memory loss or pre-existing dementia. Exam Vital Signs (past 8 hours): - 09/09/24 00:00 09/09/24 00:26 09/09/24 04:00 Temperature 97.3 F L 96.5 F L Pulse Rate 74 70 Respiratory Rate 16 16 Blood Pressure 127/60 132/57 L Pulse Oximetry 96 97 97 Oxygen Delivery Method Nasal Cannula Oxygen Flow Rate 2 1 1 Fraction of Inspired Oxygen 24 Fraction of Inspired Oxygen 24 SaO2/FiO2 Ratio 404 Oxygen Delivery Method Nasal Cannula Oxygen Flow Rate 1 Narrative Exam Narrative: NAD, fluent speech. Oriented to person only, confused about location and time. Lungs are clear, normal effort. The left lateral thorax is mildly tender to palpation. Heart is regular, harsh systolic murmur at the left sternal border. This remains stable. Abdomen is soft, non distended. No leg edema. 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 Mechanical fall with left sided rib fracture along with small hemothorax. Present on admission and improving. 2. Respiratory failure with hypoxia. Present on admission and improving. 3. Acute on chronic diastolic heart failure exacerbation. Present on admission and improving. 4. Delirium. No known history of dementia. Stopped psycho-active medications gabapentin, oxycodone and hydromorphone due to delirium on 09/08/2024. Check head CT and urinalysis given fall and delirium. 5. TIA. Present on admission and stable. Rule out CVA. Check head CT. 6. Hypertension. Not active. Hold home blood pressure medication as blood pressure is low normal. 7. Hypothyroidism. Present on admission and active. 8. Hyperlipidemia. Present on admission and active. 9. Severe aortic stenosis, Present on admission and stable. PLAN: -head CT -urinalysis -remain off Gabapentin, oxycodone and hydromorphone due to delirium -oxygen as needed, wean as able. -lidocaine patches for pain control, continue. -physical therapy -routine medications other than holding blood pressure medications. -continue Plavix, monitor bleeding. -ECHO (12/19/22): The ejection fraction is estimated to be 65-70%. Diastolic function could not be accurately assessed due to confounding valvular disease. The left atrium is severely dilated. The right ventricle is normal in size and function. There is moderate mitral stenosis. There is mild mitral regurgitation. There is severe aortic stenosis. There is mild tricuspid regurgitation. Pulmonary artery pressures cannot be estimated because of the lack of a measurable TR jet velocity. Compared to the prior study dated 05/24/2019, the aortic and mitral valve gradients have increased. DVT prophylaxis SCDs and Plavix. Code status DNR/DNI YANG is September 10, Has been in the hospital for 2 midnights hospital stay with inpatient status. Quality VTE Deep Vein Thrombosis/Pulmonary Embolism Present on Admission: No PROFEE Charge codes Subsequent inpatient/observation care: [id number]
[2024-09-09 08:08] LABS: Add Manual Diff / Slide Review NO; Basophils Absolute Auto 100 /uL (0-100); Basophils Percent Auto 0.7 % (0-2); Eosinophils Absolute Auto 400 /uL (0-450); Eosinophils Percent Auto 5.9 % (2-4); Hemoglobin 11.7 g/dL (12.0-16.0); Lymphocytes Absolute Auto 1600 /uL (1100-4500); Lymphocytes Percent Auto 22.6 % (25-40); Mean Corpuscular HGB Conc 32.6 % (30-36); Mean Corpuscular Hemoglobin 27.4 PG (26-34); Mean Corpuscular Volume 83.9 fL (80-100); Monocytes Absolute Auto 800 /uL (0-900); Monocytes Percent Auto 11.5 % (3-14); Neutrophils Absolute Auto 4300 /uL (1500-7000); Neutrophils Percent Auto 59.3 % (50-75); Platelet Count 227 X10^3/uL (150-400); Red Blood Cell Count 4.29 X10^6/uL (4.0-5.2); Red Cell Distribution Width 16.1 % (11.6-14.8); White Blood Cell Count 7.3 X10^3/uL (4.5-11.0)
[2024-09-09 08:14] LABS: BUN Creatinine Ratio 18.9 (6-22); Blood Urea Nitrogen 30 mg/dL (7-17); Calcium 8.7 mg/dL (8.4-10.2); Carbon Dioxide 33 mmol/L (22-32); Chloride 100 mmol/L (98-107); Estimated Glomerular Filt Rate 31 mL/min (>60); Glucose 111 mg/dL (80-110); HEMOLYSIS < 15 (0-50); Potassium 3.9 mmol/L (3.4-5.1); Sodium 137 mmol/L (137-145)
[2024-09-09] MEDS: LORazepam 2 MG/ML INJ 0.5 MG IV (09:06)
--- NOTE | 2024-09-09 09:13 | PT-IP ANOTE ---
Pt is agitated at this time and per RN not appropriate for PT. PT will attempt to see later today.
[2024-09-09] MEDS: SODIUM CHLORIDE 0.9% FLUSH 10 ML IV (09:15)
--- NOTE | 2024-09-09 09:17 | PC.NURSE ---
Pt is very agitated and becoming combative-throwing her breakfast tray Your gonna wish you didn't come to work today pt is screaming, kicking, grabbing staff, pinching and punching, spitting while trying to get oob. Dr. Myers notified orders taken. Medicated with 0.25mg of ativan IVP.
--- NOTE | 2024-09-09 09:36 | PC.NURSE ---
Addendum entered by Rudy Osullivan R.N. 09/09/24 18:10: Pt has been up in chair, did kick this RN while up in chair, agitated about going to bed for transfer down to CT. Tolerated CT relatively well. Now back to room, settled to bed. restful. Original Note: Pt woke easily, assessed, Pt conversant. This RN introduced himself to Pt. During med pass and set up foe b'fast Pt became agitated and threw b'fast tray, screaming at staff ( see Coordinator's note). Pt started to scream that male shouldn't be in my room. This RN stepped away from the room. Coordinator gave ativan as noted per DR. Myers's order. Pt has been calm since,sleeping restfully with eyes closed facial expression calm. Will attempt morrning meds later if possible.
--- NOTE | 2024-09-09 12:13 | CM.DPC ---
DCP COnt: Phone message from [facility] admissions Lucia stating they likely could accept the patient but needed height and weight and SW faxed updated MD prog note and PT note from yesterday 09/08/24 to [facility] with height and weight attached. 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 SW spoke to pt's POA friend Michela Rivas who lives in [place] [phone] and updated on pt and she confirms that pt is really sweet and calm and gentle normally and this is so different than her normal behavior but aware of hospital delirium and owning. POTha Abernathy confirms preference would be [facility] if they are willing to re-review and accept but aware that likely SNF will be outside of [place] and agreeable with SNF that can accept. PASRR previously completed but needs MD signature. Plan: SW to follow closely for pt's stability and confirmation from [facility] that they can still accept with hopeful calming of pt's behaviors and confusion. Tish Carlos MSW
--- NOTE | 2024-09-09 13:37 | PT-IP ANOTE ---
Per RN pt continues to not be appropriate for PT. PT will check on pt tomorrow.
--- NOTE | 2024-09-09 15:05 | PT.IPTN ---
Current Diagnoses Fracture of one rib, left side, initial encounter for closed fracture (09/04/24) Physical Therapy Treatment Note M2 PT-IP Current Condition Start: 09/05/24 12:54 Freq: NEEDED Status: Active Protocol: Document 09/05/24 11:40 AB (Rec: 09/05/24 13:07 AB [id number]) Physical Therapy Current Condition Current Condition Evaluation Date 09/05/24 Treatment Diagnosis s/p fall; L rib fx 6-10; L hemothorax; difficulty in walking Onset Date 09/04/24 M3 PT-IP Subjective Start: 09/05/24 12:54 Freq: NEEDED Status: Active Protocol: Document 09/09/24 15:05 AB (Rec: 09/09/24 15:29 AB [id number]) Subjective Physical Therapy Visit Type Type Treatment Note Visit Start Time 15:05 Visit Stop Time 15:15 Number of OUTER DIAMETER GRINDER Visits 0 M4 PT-IP Mobility and Gait Start: 09/05/24 12:54 Freq: NEEDED Status: Active Protocol: Document 09/09/24 15:05 AB (Rec: 09/09/24 15:29 AB [id number]) PT-Bed Mobility Assessment Supine to Sit Supine to Sit Maximum Assistance PT-Transfer Assessment Sit to and From Stand Sit to and from Stand Moderate Assistance,2 Person Assistance,Use of Upper Extremities Equipment Transfer Assistive Device Gait Belt,Front Wheeled Walker Transfers Transfer Destination Chair Transfer Technique Stand Step Pivot Transfer Ability Level of Assist Maximum Assistance,2 Person Assistance,Use of Upper Extremities Comments Mobility Comments heard pt screaming and checked on pt. Nurse and NAC in room and was about to get pt up. pt with confusion and agitated . NAC asked for assistance from PT. nurse left the room and stated that he will leave pt with PT and NAC. pt completed supine to sit max A and max cues. max A x 2 for scooting to EOB. pt with confusion and needs constant cues with all tasks. needs cues to decrease agitation. pt taking her clothing off and stated that gown is scratchy. changed pt's gown to her personal clothing. pt slightly pacified. completed sit to stand mod A x 2 and max cues and step transfer to chair max A using FWW and max cues. positioned pt on the chair. call light and table placed within reach. chair alarm on. left pt with NAC M5 PT-IP Objective Assessments Start: 09/05/24 12:54 Freq: NEEDED Status: Active Protocol: Document 09/05/24 11:40 AB (Rec: 09/05/24 13:07 AB [id number]) Orientation Orientation/Cognition Level of Alertness Confusional State Orientation Name Language Function Ability Hard of Hearing Safety Awareness Decreased Safety Awareness Memory Description Short Term Impaired Gross Range of Motion Lower Extremity ROM Assessment Within Functional Limits Strength Lower Extremity Strength Assessment Left Impaired Hip 3+/5 Knee 3+/5 M6 PT-IP Treatment Start: 09/05/24 12:54 Freq: NEEDED Status: Active Protocol: Document 09/09/24 15:05 AB (Rec: 09/09/24 15:29 AB [id number]) Physical Therapy Treatment Education Education Provided Safety M7 PT-IP Assessment and Plan Start: 09/05/24 12:54 Freq: NEEDED Status: Active Protocol: Document 09/09/24 15:05 AB (Rec: 09/09/24 15:29 AB [id number]) PT Summary Assessment and Plan Potential Rehabilitation Potential Fair Summary Impairments Pain,ROM,Strength,Balance, Coordination,Sensation,Tone, Cognition,Bed Mobility, Transfers,Gait,Activity Tolerance Progress Towards Goals Slow Progress due to Medical Issues,Slow Progress - Other Assessment Summary pt continues to require mod x 2 to max A x 2 with transfers using FWW. pt with confusion and is agitated limiting participation and needing increase cues. pt will benefit from SNF rehab to improve mobility. Goals Bed Mobility Goal Minimal Assistance Transfer Goal Minimal Assistance,Front Wheeled Walker Gait Goal Minimal Assistance,Front Wheel Walker,Colt Walker Gait Distance 50 Other Goals improve bed mobility, transfers and ambulation using LRAD ~ 100 ft SBA Days to Meet Goals 10 Frequency of Treatment Frequency Of Treatment Once a Day Treatment Plan Physical Therapy Treatment Plan Bed Mobility Training,Transfer Training,Gait Training, Therapeutic Exercise,Balance Retraining,Discharge Planning, Hot or Cold Pack,Neuromuscular Re-ed,Coordination Retraining ,Manual Therapy Precautions Other Precautions falls Recommendations To Nursing Amount of Assist Needed 2 Person Assist Discharge Recommendations PT Discharge Recommendations SNF Rehab Transportation Needs at Discharge Wheelchair/Cabulance
--- NOTE | 2024-09-09 15:44 | DI.CT.S_ITS ---
PROCEDURE: CT HEAD/BRAIN WO CON INDICATIONS: altered mental status TECHNIQUE: Noncontrast 4.5 mm thick angled axial sections acquired from the foramen magnum to the vertex, with coronal and sagittal reformats. For radiation dose reduction, the following was used: automated exposure control, adjustment of mA and/or kV according to patient size. COMPARISON: [facility], CT, CT HEAD/BRAIN WO CON, 03/23/2023, 15:05. FINDINGS: Image quality: Diagnostic. CSF spaces: Basal cisterns are patent. No extra-axial fluid collections. Ventricles are normal in size and shape. Brain: Encephalomalacia and gliosis in the right hemisphere consistent with dense prior MCA infarct, predominantly territories. Underlying atrophy and multifocal chronic ischemic change. No intracranial hemorrhage or mass effect. Skull and face: Calvarium and visualized facial bones are intact, without suspicious lesions. Incidental hyperostosis frontalis interna noted. Sinuses: Visualized sinuses and mastoids are clear. IMPRESSION: Atrophy and chronic ischemic change without intracranial hemorrhage or mass effect. Old right MCA infarct, stable Approved by: Dereje Crowell M.D. on 09/09/2024 at 17:16
[2024-09-09] MEDS: LIDOCAINE 5% PATCH 1 EACH TOP (20:51)
[2024-09-09] MEDS: QUETIAPINE 25 MG TABLET PO (20:51)
[2024-09-09] MEDS: FUROSEMIDE 40 MG TABLET PO (20:51)
[2024-09-09] MEDS: ATORVASTATIN 20 MG TABLET 80 MG PO (20:51)
[2024-09-09 22:24] LABS: Appearance Urine UA TURBID; Bilirubin Urine UA NEGATIVE (NEGATIVE); Color Urine UA YELLOW; Glucose Urine UA NEGATIVE (Negative); Ketones Urine UA NEGATIVE (NEGATIVE); Leukocyte Esterase Urine UA 1+ (NEGATIVE); Nitrite Urine UA NEGATIVE (Negative); Occult Blood Urine UA 2+ (Negative); Protein Urine UA 2+ (Negative); Specific Gravity Urine UA 1.015 (1.000-1.035)
[2024-09-09] MEDS: cefTRIAXone 1,000 MG in SODIUM CHLORIDE 0.9% 100 ML 200 MG IV (22:27)
[2024-09-09 22:33] LABS: Bacteria Urine Many (>30); RBC Urine 0-1/HPF (0-5/HPF); Squamous Epithelial Cell Urine 0-1 /HPF (0-5/HPF); Urine Volume 10mL (spun); WBC Urine 1-5/HPF (0-5/HPF); pH Urine UA 7.5 (4.5-8.0)
[2024-09-09 22:34] LABS: Culture Indicated Urine Specimen Cultured
[2024-09-10] VITALS: BP 132/84; PULSE 86; RESP 19; TEMP 36.5; O2SAT 94
[2024-09-10 04:00] VITALS: BP 134/74; PULSE 84; RESP 19; TEMP 37; O2SAT 94
[2024-09-10] MEDS: SODIUM CHLORIDE 0.9% FLUSH 10 ML IV ×2 (05:19→20:19)
--- NOTE | 2024-09-10 07:29 | PM.PN.1 ---
Subjective Subjective Date Patient Seen: 09/10/24 Time Patient Seen: 10:30 Interval history: Summary: This is an 89-year-old female who had a mechanical fall with multiple left-sided rib fractures and a small hemothorax. She was initially hypoxemic, this is improving and her pain control is improving. She [facility] but had some agitation on the evening of September 06 which we will delay her discharge. S: The patient remained very confused yesterday. Discussion with her DPOA by phone noted that she has no history of dementia or confusion at baseline. BMP and CBC were unremarkable, noting improvement of creatinine to baseline 1.59 mg/dL. Head CT showed only changes of an old stroke. Urinalysis was fairly unremarkable with 1+ leukocyte esterase, no hematuria or pyuria, and many bacteria, culture pending. She was given a single dose of IV ceftriaxone yesterday. She is seen this morning with her DPOA Michela Rivas at bedside. She is very drowsy but awakens appears persistently confused as to location, not recognizing her friend when she first came in. Exam Vital Signs (past 8 hours): - 09/10/24 00:00 09/10/24 04:00 Temperature 97.7 F 98.6 F Pulse Rate 86 84 Respiratory Rate 19 19 Blood Pressure 132/84 134/74 Pulse Oximetry 94 94 Oxygen Flow Rate 0 0 Fraction of Inspired Oxygen 24 SaO2/FiO2 Ratio 404 Oxygen Delivery Method Room Air Oxygen Flow Rate 0 Narrative Exam Narrative: NAD, fluent speech. Oriented to person only, confused about location and time. Lungs are clear, normal effort. The left lateral thorax is mildly tender to palpation. Heart is regular, harsh systolic murmur at the left sternal border. This remains stable. Abdomen is soft, non distended. No leg edema. Objective Imaging Head CT 09/09/2024:: Radiologist's impression: Atrophy and chronic ischemic change without intracranial hemorrhage or mass effect. Old right MCA infarct, stable Echo: Radiologist's impression: -ECHO (12/19/22): The ejection fraction is estimated to be 65-70%. Diastolic function could not be accurately assessed due to confounding valvular disease. The left atrium is severely dilated. The right ventricle is normal in size and function. There is moderate mitral stenosis. There is mild mitral regurgitation. There is severe aortic stenosis. There is mild tricuspid regurgitation. Pulmonary artery pressures cannot be estimated because of the lack of a measurable TR jet velocity. Compared to the prior study dated 05/24/2019, the aortic and mitral valve gradients have increased. Labs 09/09/24 07:50 09/09/24 07:50 Labs: Laboratory Results - last 24 hr 09/09/24 09/09/24 07:50 22:20 WBC 7.3 RBC 4.29 Hgb 11.7 L Hct 36.0 MCV 83.9 MCH 27.4 MCHC 32.6 RDW 16.1 H Plt Count 227 Neut % (Auto) 59.3 Lymph % (Auto) 22.6 L [place] % (Auto) 11.5 Eos % (Auto) 5.9 H Baso % (Auto) 0.7 Neut # (Auto) 4300 Lymph # (Auto) 1600 [place] # (Auto) 800 Eos # (Auto) 400 Baso # (Auto) 100 Sodium 137 Potassium 3.9 Chloride 100 Carbon Dioxide 33 H BUN 30 H Creatinine 1.59 H Estimated GFR 31 L BUN/Creatinine Ratio 18.9 Glucose 111 H Calcium 8.7 Urine Color Yellow Urine Appearance Turbid Urine pH 7.5 Ur Specific [place] 1.015 Urine Protein 2+ H Urine Glucose (UA) Negative Urine Ketones Negative Urine Occult Blood 2+ H Urine Nitrate Negative Urine Bilirubin Negative Urine Urobilinogen 2.0 H Ur Leukocyte Esterase 1+ H Urine RBC 0-1/hpf Urine WBC 1-5/hpf Ur Squamous Epith Cells 0-1 /hpf Urine Bacteria Many (>30) H Ur Culture Indicated? 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 Mechanical fall with left sided rib fracture along with small hemothorax. Present on admission and improving. 2. Respiratory failure with hypoxia. Present on admission and improving. 3. Acute on chronic diastolic heart failure exacerbation. Present on admission and improving. 4. Delirium. Possible UTI, appears less likely. No known history of dementia. Stopped psycho-active medications gabapentin, oxycodone and hydromorphone due to delirium on 09/08/2024. Head CT unremarkable 5. Possible UTI. Continue empiric ceftriaxone. Follow culture. Head CT unremarkable 09/09/2024, showing only old stroke. 6. History of stroke/TIA with chronic left hemiparesis. Present on admission and stable. 6. Hypertension. Not active. Hold home blood pressure medication as blood pressure is low normal. 7. Hypothyroidism. Present on admission and active. Check TSH. 8. Hyperlipidemia. Present on admission and active. 9. Severe aortic stenosis, Present on admission and stable. PLAN: -ceftriaxone 1 g IV Q 24 hours pending urine culture -remain off Gabapentin, oxycodone and hydromorphone due to delirium -oxygen as needed, wean as able. -lidocaine patches for pain control, continue. -physical therapy -routine medications other than holding blood pressure medications. -continue Plavix, monitor bleeding. DVT prophylaxis SCDs and Plavix. Code status DNR/DNI YANG is September 11, Has been in the hospital for 2 midnights hospital stay with inpatient status. Quality VTE Deep Vein Thrombosis/Pulmonary Embolism Present on Admission: No IH PROFEE Charge codes Subsequent inpatient/observation care: [id number]
[2024-09-10 07:44] VITALS: BP 159/76; PULSE 78; RESP 16; TEMP 36.2; O2SAT 93
[2024-09-10 09:41] LABS: TSH w/ Reflex to FT4 0.19 uIU/mL (0.47-4.68)
[2024-09-10 10:07] LABS: Free T4, Direct Thyroxine 1.91 ng/dL (0.78-2.19)
--- NOTE | 2024-09-10 11:17 | PT-IP ANOTE ---
PT reviews chart, clears with nsg and attempts to initiate treatment. Pt with friend, Michela, in room. Pt sitting up in chair. She adamantly refuses getting out of chair, ambulation and PT adjusting chair (legs up and pillow behind back). Pt also adamantly refusing PT donning gown (pt in shirt and briefs). Friend is also not able to convince pt to participate with mobility. Pt asking for lift chair and to see Kalapna, who is a friend per Michela. Con't PT efforts next date.
[2024-09-10 12:00] VITALS: BP 113/58; PULSE 85; RESP 18; TEMP 36.9; O2SAT 95
--- NOTE | 2024-09-10 12:36 | PC.NURSE ---
Addendum entered by Roseline Guadarrama R.N. 09/10/24 17:23: 1630 pt agreeable to care, allowed assistance from nursing staff to change soiled briefs and clothing. Pt appropriate and cooperative with care. Tolerating diet. Care ongoing. Original Note: Pt resistive to care, declining medications, declining full physical assessment, IV assessment. Pt assisted to chair with this RN max assist and family member. at approximately 1230, pt requesting to use BSC. Gait belt in place, FWW in place. Plan explained to pt in simple terms. Pt attempted to kick PCT in face when assisting to place shoes on. Pt educated on safety and instructed to please not kick staff members. Pt declining to get up to BSC, stating, I make stuff up sometimes. Pt in chair, chair alarm active, close friend at pt's side. Pt room close to nurse's station for safety. Care ongoing.
--- NOTE | 2024-09-10 13:05 | CM.DPC ---
DCP Cont. Reviewed EMR and team rounds for status updates. Pt has not had any Ativan since yesterday, is slowly improving cognitively. [facility] is reviewing. PASSAR is w/facesheet. *Call [facility] Wednesday am to clarify if they can accept, pending pt did not have any behavioral issues overnight.
[2024-09-10 15:43] VITALS: BP 146/85; PULSE 85; RESP 18; TEMP 36.9; O2SAT 97
[2024-09-10] MEDS: cefTRIAXone 1,000 MG in SODIUM CHLORIDE 0.9% 100 ML 200 MG IV (17:17)
[2024-09-10] MEDS: LIDOCAINE 5% PATCH 1 EACH TOP (20:17)
[2024-09-10 20:30] VITALS: BP 135/79; PULSE 89; RESP 14; TEMP 37.3; O2SAT 94
--- NOTE | 2024-09-10 21:56 | PC.NURSE ---
pt a&o to self, very forgetful and requires frequent reorientation. tends to talk in circles and ramble. vss, o2 sats 94% on RA. abdomen soft & nontender, active bowel sounds x4 quads. denies nausea. denies pain. trace edema in BLE. has some scattered bruising. pt was agreeable to take p.m meds with applesauce. when given meds, pt repeatedly spit them out onto the ground and stated she has been restrained all morning and does not want any pills today. pt however agreeable to having lidocaine patch placed on her right lower leg, but refuses to take any pills. pt sitting in chair with chair alarm on. refuses scds. call light within reach.
--- NOTE | 2024-09-10 22:33 | PC.NURSE ---
Addendum entered by Jocelyne Russell R.N. 09/10/24 23:12: pt hoyered back to bed. had a large bm and was cleaned and changed. pt cooperative with cleanup and has calmed down significantly. one time dose of ativan ordered but not administered due to pt's change in behavior. Original Note: approximately at 2215, pt's chair alarm sounded off and she was found down on the ground. denies hitting her head. according to the pt she no longer wanted to sit in the chair and wants to sleep on the ground so she slid off the chair to lay on the ground. expressed to the pt that this is a safety hazard and that she can not sleep on the ground and has to either sit in the chair or lay in bed. pt is extremely agitated and yelling at staff, refusing to be hoyered back to the chair or bed. Dr. Ovalles has been notified.
[2024-09-11] VITALS: BP 140/86; PULSE 88; RESP 19; TEMP 36.4; O2SAT 96
[2024-09-11 08:00] VITALS: PULSE 89; RESP 18; TEMP 36.2; O2SAT 93
[2024-09-11 09:08] VITALS: PULSE 89; RESP 16; O2SAT 94
--- NOTE | 2024-09-11 12:38 | PT.IPTN ---
Current Diagnoses Fracture of one rib, left side, initial encounter for closed fracture (09/04/24) Physical Therapy Treatment Note M2 PT-IP Current Condition Start: 09/05/24 12:54 Freq: NEEDED Status: Active Protocol: Document 09/05/24 11:40 AB (Rec: 09/05/24 13:07 AB [id number]) Physical Therapy Current Condition Current Condition Evaluation Date 09/05/24 Treatment Diagnosis s/p fall; L rib fx 6-10; L hemothorax; difficulty in walking Onset Date 09/04/24 M3 PT-IP Subjective Start: 09/05/24 12:54 Freq: NEEDED Status: Active Protocol: Document 09/11/24 12:00 MB (Rec: 09/11/24 12:37 MB [id number]) Subjective Physical Therapy Visit Type Type Treatment Note Visit Start Time 12:00 Visit Stop Time 12:25 Number of ENVIRONMENTAL SERVICES TECHNICIAN Visits 0 Physical Therapy Visit Comments Patient Comments I'm not where I want to be. M4 PT-IP Mobility and Gait Start: 09/05/24 12:54 Freq: NEEDED Status: Active Protocol: Document 09/11/24 12:00 MB (Rec: 09/11/24 12:37 MB [id number]) PT-Transfer Assessment Sit to and From Stand Sit to and from Stand Minimal Assistance,Use of Upper Extremities Equipment Transfer Assistive Device Front Wheeled Walker Transfers Transfer Destination Bedside Commode Transfer Technique Stand Step Pivot Transfer Ability Level of Assist Minimal Assistance,Use of Upper Extremities Comments Mobility Comments Pt frequently refusing PT suggestions, difficulty following commands to push up from the chair with right hand and she removes gait belt with standing. BSC transfer to the right with walker and CGA . Assist requires 2-3 people given pt impulsivity, decreased insight, refusal to follow safety cues and need to clean after bowel incontinence and to assist setting up BSC. Min A to hold walker d/t pt cannot use left hand and PT must move the walker with mobility/step transfer to the right. PT-Balance Assessment Sitting Balance and Reactions Static Sitting Balance Ability Good Dynamic Sitting Balance Ability Fair Standing Balance and Reactions Static Standing Balance Ability Fair Dynamic Standing Balance Ability Fair Device Used FWW M5 PT-IP Objective Assessments Start: 09/05/24 12:54 Freq: NEEDED Status: Active Protocol: Document 09/05/24 11:40 AB (Rec: 09/05/24 13:07 AB [id number]) Orientation Orientation/Cognition Level of Alertness Confusional State Orientation Name Language Function Ability Hard of Hearing Safety Awareness Decreased Safety Awareness Memory Description Short Term Impaired Gross Range of Motion Lower Extremity ROM Assessment Within Functional Limits Strength Lower Extremity Strength Assessment Left Impaired Hip 3+/5 Knee 3+/5 M6 PT-IP Treatment Start: 09/05/24 12:54 Freq: NEEDED Status: Active Protocol: Document 09/11/24 12:00 MB (Rec: 09/11/24 12:37 MB [id number]) Physical Therapy Treatment Education Education Provided Safety Other Treatments Other Treatment Performed Education to pt that the hospital has it's own DME such as gait belts and recliner and this is all the equipment that is available here. Ed pt in importance of listening to nsg and therapy staff, need to wear gait belt for safety and to participate with medical care and therapy in order to prepare for d/c. Unsure how much pt understands. M7 PT-IP Assessment and Plan Start: 09/05/24 12:54 Freq: NEEDED Status: Active Protocol: Document 09/11/24 12:00 MB (Rec: 09/11/24 12:37 MB [id number]) PT Summary Assessment and Plan Potential Rehabilitation Potential Fair Status of Condition at Evaluation Evolving Summary Impairments Pain,ROM,Strength,Balance, Coordination,Sensation,Tone, Cognition,Bed Mobility, Transfers,Gait,Activity Tolerance Progress Towards Goals Slow Progress due to Medical Issues,Slow Progress - Other Assessment Summary Michela con't to be resistant to therapy and suggestions for safety. She removes gait belt when standing at walker today. PT provides extensive education to pt today. PT asks OT about cognitive assessment . One more PT treatment next date and if pt con't to refuse , will d/c acute PT. Nsg, CHEST PAINTING LEADER and friend, Michela, all in treatment today. PT speaks with SW. Goals Bed Mobility Goal Minimal Assistance Transfer Goal Minimal Assistance,Front Wheeled Walker Gait Goal Minimal Assistance,Front Wheel Walker,Colt Walker Gait Distance 50 Other Goals improve bed mobility, transfers and ambulation using LRAD ~ 100 ft SBA Days to Meet Goals 10 Frequency of Treatment Frequency Of Treatment Once a Day Treatment Plan Physical Therapy Treatment Plan Bed Mobility Training,Transfer Training,Gait Training, Therapeutic Exercise,Balance Retraining,Discharge Planning, Hot or Cold Pack,Neuromuscular Re-ed,Coordination Retraining ,Manual Therapy Precautions Other Precautions falls Recommendations To Nursing Amount of Assist Needed 2 Person Assist Discharge Recommendations Other Discharge Recommendations Currently, low participation with therapy, increased assistance at d/c Transportation Needs at Discharge Wheelchair/Cabulance
--- NOTE | 2024-09-11 13:05 | OT.IP.TRT ---
Current Diagnoses Fracture of one rib, left side, initial encounter for closed fracture (09/04/24) Occupational Therapy Treatment Note M2 OT-IP Current Condition Start: 09/05/24 14:11 Freq: Status: Active Protocol: Document 09/05/24 14:12 [facility] (Rec: 09/05/24 14:26 [facility] [id number]) Occupational Therapy Current Condition Current Condition Evaluation Date 09/05/24 Treatment Diagnosis SOB, left 6-10th rib fx Diagnosis Onset Date 09/04/24 M3 OT- IP Subjective and Pain Start: 09/05/24 14:11 Freq: Status: Active Protocol: Document 09/11/24 14:51 [facility] (Rec: 09/11/24 14:58 [facility] [id number]) OT- Subjective Occupational Therapy Visit Type Type Treatment Note Visit Start Time 12:39 Visit Stop Time 13:05 Notes Pt just finishing on BSC with nursing staff when OT entered. OT Pain Assessment Pain Present Pain Present Denied Pain M4 OT- IP ADL's Start: 09/05/24 14:11 Freq: Status: Active Protocol: Document 09/06/24 13:32 [facility] (Rec: 09/06/24 13:39 [facility] [id number]) OT [id number] Comments OT Self-Feeding Comments Helping pt to use her left hand to hold the chocolate pudding in place with hand over hand assist. OT ADL-Grooming General Evaluation Grooming Ability Minimal Assistance Areas Needing Assistance Combing/Brushing Hair OT ADL-Oral Care General Eval Oral Care Ability Standby Assistance Comments Oral Care Comments Pt needing set-up assist and orientation of the items. M5 OT- IP IADL's Start: 09/05/24 14:11 Freq: Status: Active Protocol: Document 09/05/24 14:12 [facility] (Rec: 09/05/24 14:26 [facility] [id number]) OT-Instrumental Activities of Daily Living Home Safety Awareness Home Safety Comments Pt aware will need assist but wanting to go home. Medication Management Medication Management Caregiver Administers Money Management Money Management Caregiver Provides Assistance Meal Preparation Meal Preparation Caregiver Provides Assist Professor Of Literature Professor Of Literature Caregiver Provides Assist M6 OT- IP Functional Cognition Start: 09/05/24 14:11 Freq: Status: Active Protocol: Document 09/11/24 14:51 [facility] (Rec: 09/11/24 14:58 [facility] [id number]) Cognitive Factors Limiting Selfcare Function Cognitive Ability Level of Alertness Alert,Confusional State Patient Orientation Name,Place Attention Span Ability Capable of Focused Attention, Capable of Sustained Attention Ability to Follow Commands Able to Follow One Step Commands with Increased Time, Able to Follow One Step Commands with Repetition Cognitive Tests SLUMS Pt participated in the SLUMS with a score of 17/30. Interestingly, pt had difficulty with most of the questions but she excelled at the listening comprehension earning 8/8 in that section. Of note, pt's clock may be impacted by her low vision. OT- Vision and Hearing OT- Hearing Assessment OT- Hearing Assessment Hearing Impaired OT- Vision Assessment Vision History Macular Degeneration,Low Vision Visual Acuity Glasses All The Time Vision Assessment Comments pt is very light sensitive M7 OT- IP Mobility and Balance Start: 09/05/24 14:11 Freq: Status: Active Protocol: Document 09/08/24 10:57 [facility] (Rec: 09/08/24 11:02 [facility] [id number]) OT-Transfer Assessment Comments Mobility Comments Pt initially initiated to move her legs to the edge of the bed and then stopped. M8 OT- IP Objective Assessments Start: 09/05/24 14:11 Freq: Status: Active Protocol: Document 09/05/24 14:12 [facility] (Rec: 09/05/24 14:26 [facility] [id number]) OT Gross Range of Motion Upper Extremity Range of Motion Assessment Left Impaired OT Strength Upper Extremity Strength Assessment Left Impaired Comments Strength Comments Lue hand contracture and difficulty to open so able to put the left hand on the FWW. Pt refusing to have her left hand cleaned at this time. OT- Coordination Assessment Upper Extremity Finger to Nose Test Left UE Impaired Finger Tapping Test Left UE Impaired OT-Muscle Tone Assessment Comments Muscle Tone Comments Increased tone in RUE. M9 OT- IP Assessment and Plan Start: 09/05/24 14:11 Freq: Status: Active Protocol: Document 09/11/24 14:51 [facility] (Rec: 09/11/24 14:58 [facility] [id number]) OT Summary Assessment and Plan Potential Rehabilitation Potential Fair Analytic Complexity at Evaluation Moderate Summary OT Impairments Pain,Strength,Balance,Tone, Functional Cognition, Functional Mobility,Self- Feeding,Grooming,Dressing, Toileting,Bathing,Toilet Transfers,Shower Transfers, Activity Tolerance Progress Towards Goals Slow Progress due to Pain,Slow Progress due to Medical Issues,Slow Progress due to Activity Tolerance,Slow Progress due to Cognition Assessment Summary Pt appears to continue to be below her baseline level but has improved since the last OT session. Pt scored a 17/30 on the SLUMS assessment. SLUMS form will be scanned into her file at a later date. Recommend SNF. Goals Grooming Goal Independent Dressing Goal Minimal Assistance Toileting Goal Minimal Assistance Bathing Goal Moderate Assistance Toilet Transfer Goal Minimal Assistance Shower Transfer Goal Minimal Assistance Days to Meet Goals 25 Frequency of Treatment Frequency Of Treatment Once a Day Other frequency 5x/week Treatment Plan OT Treatment Plan ADL Training,Functional Cognition Training,Functional Mobility,Patient/Family Education,Discharge Planning Other Treatment Recommendations and Next ADLs standing Treatment Focus Discharge Recommendations OT Discharge Recommendations SNF Rehab Transportation Needs at Discharge Wheelchair/Cabulance
--- NOTE | 2024-09-11 14:32 | P.PN_ITS ---
Subjective Subjective Interval history: Summary: This is an 89-year-old female who had a mechanical fall with multiple left-sided rib fractures and a small hemothorax. She was initially hypoxemic, this is improving and her pain control is improving. She was set up to go to unit a nursing home facility on September 07 but had some agitation on the evening of September 06 which we will delay her discharge. S: Patient does have prior documentiation of cognitive impairment with a SLUMS from last year (03/29/2023) of . She is refusing some of her medications, stating they taste bad. She previously reported taking these in apple sauce, however nursing staff today reports patient spitting medications out even with apple sauce. Did not receive seroquel last night. This morning she is pleasant, reports vivid dreams and hallucinations, though I cannot tell when these happened based on the patient's subjective history at this time. Exam Vital Signs (past 8 hours): - 09/11/24 08:00 09/11/24 09:08 Temperature 97.1 F L Pulse Rate 89 89 Respiratory Rate 18 16 Pulse Oximetry 93 94 Oxygen Delivery Method Room Air Fraction of Inspired Oxygen 24 SaO2/FiO2 Ratio 404 Oxygen Delivery Method Room Air Oxygen Flow Rate 0 Narrative Exam Narrative: NAD, fluent speech. Oriented to person only, confused about location and time Left facial asymmetry (slight) and left weakness, chronic. No leg edema. 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 Mechanical fall with left sided rib fracture along with small hemothorax. Present on admission and improving. 2. Respiratory failure with hypoxia. Present on admission and improving. 3. Acute on chronic diastolic heart failure exacerbation. Present on admission and improving. 4. Acute metabolic or toxic encephalopathy. Chronic cognitive impairment. 5. Acute cystitis with enterobacter. Continue empiric ceftriaxone. Follow culture. Head CT unremarkable 09/09/2024, showing only old stroke. 6. History of stroke/TIA with chronic left hemiparesis. Present on admission and stable. 6. Hypertension. Not active. Hold home blood pressure medication as blood pressure is low normal. 7. Hypothyroidism. Present on admission and active. 8. Hyperlipidemia. Present on admission and active. 9. Severe aortic stenosis, Present on admission and stable. 10. JAGDEEP, improved PLAN: Patient appears calm today. She is not entirely clear the etiology of her current situation. It is not clear if her delirium is due to a UTI / metabolic encephalopathy or a hospital delirium in the setting of previously documented cognitive impairment (SLUMS in 03/2023). Another possibility is a toxic encephalopathy from pain medications. Respiratory failure has resolved today, no supplemental therapy needed. -ceftriaxone 1 g IV Q 24 hours for 3 days, urine growing a sensitive enterobacter. -remain off Gabapentin, hydromorphone with delirium. With increased pain today, resume very small 2.5 mg oxycodone. -oxygen as needed, off supplemental therapy today. -lidocaine patches for pain control, continue. -physical therapy as tolerated, -patient intermittently refusing her home medications. Continue them when she allows. -continue Plavix, monitor bleeding. -seroquel given 09/09, refused 09/10. I think this would provide some benefit for her -JAGDEEP improved, will recheck labs tomorrow, likely due to increased diuretic dosing given for acute on chronic heart failure. Reduced furosemide back to home dosing. DVT prophylaxis SCDs and Plavix. Code status DNR/DNI YANG is unclear, awaiting accepting SNF. Has been in the hospital for 2 midnights hospital stay with inpatient status. Time-Based Coding :: [TOTAL MINUTES] spent with patient and on the chart (including review of chart, obtaining history, exam, reviewing outside data, placing orders, documenting exam and treatment plan, and counseling patient) on [DATE]. Quality VTE Deep Vein Thrombosis/Pulmonary Embolism Present on Admission: No
--- NOTE | 2024-09-11 14:36 | CM.DPC ---
DCP SNF vs [facility]AM[facility] Cont: Per , pt seems to be improving on her Seroquel [facility] to [facility] with [facility]OT today. Per PT, pt still very particular and refused to follow some of PT and RN directives and uncomfortable with gait belt so PT unable to do much with pt or assess well. Stating 2PA for safety for staff nurse anesthetist but that when pt was up to the commode pt moved pretty well. Pt and POA preference [facility] previously declined due to pt's behaviors. Per Lucia at [facility], they could likely accept but their policy is off bed alarm for 24 hours and pt remains on bed alarm here as high fall risk. TERESO left msg stating pt only on Chair Alarm and not bed alarm and any option to accept pt and what parameters? TERESO faxed updated clinicals to [facility] and spoke to Lluvia PULIDO to discuss and determine if SNF not an option then what would be needed for pt to return to [facility]. Lluvia states that since pt currently showing as 2PA, then pt would need PP CG in place for 17/05 for at least a week upon return. They do feel pt would likely improve in her own apt setting and routine. TERESO met bedside with pt and her POA friend Michela Rob [phone] and discussed above information. Pt confirms her preference at d/c is [facility] and discussed they have declined due to her not following commands and behaviors and pt states I will be much better at [facility]. TERESO called [facility] admissions and discussed situation and requested bedside assessment with pt and POA as pt now more fiesty and sarcastic rather than being significantly confused and combative. Mary Jane will discuss with their ED to see if staff can come bedside as pt has been to their facility before twice. TERESO provided PP CG Agency list to ADAM and she confirms pt has some limited financial means to pay for PP CG if absolutely needed if SNF cannot accept but preference remains [facility] first. Pt no longer has her condo and only has her apt at [place] for rent. ADAM Abernathy aware of likely need of Medicaid LTC application in the future once pt meets financial eligibility but currently does not qualify for Medicaid. ADAM Abernathy going back to [place] to get some of pt's personal belongings to bring to her in the hospital and will review PP CG agency list and will speak to Lluvia at [facility] today. Plan: SW to follow to see if [facility] can do bedside assess to confirm if they are willing to accept pt, Hillary Parker return call to see if they can accept pt even with bed alarm on at the hospital, and potential need of return to [facility] with hired PP CG if SNF cannot accept. ASH Jara
--- NOTE | 2024-09-11 14:41 | DIET.CONS ---
Dietary Consultation Note Admission Date: 09/04/2024 19:44 Assessment: 89 y F admitted after fall. RD screened for LOS. EMR reviewed. No recent weight loss. Recorded PO intakes were averaging 70% until Wednesday. This weekend PO intakes average <25%, noted pt was confused over the weekend. Per progress note, unclear etiology of delirium currently. Ht: 160.02 cm Wt: 96 kg BMI: 37.2 UBW: 93.894 kg on 05/25/24, 96.162 kg on 03/15/24 Last BM: 09/11/24 (09/11/24 12:55) MNA: 12 Andrei Score: 18 Diet: 09/04/24 Breakfast Heart Healthy Diet Diet Modifications: Nutrition Percent Meal Consumed 0% 09/10/24 18:16 Percent Meal Consumed 0% 09/10/24 13:31 Percent Meal Consumed 25% 09/09/24 18:00 Labs: RBC 4.29 X10^6/uL (4.0-5.2) 09/09/24 07:50 Hgb 11.7 g/dL (12.0-16.0) L 09/09/24 07:50 Hct 36.0 % (36-46) 09/09/24 07:50 Creatinine 1.59 mg/dL (0.52-1.04) H 09/09/24 07:50 Lactate 1.9 mmol/L (0.7-2.1) 09/04/24 14:10 NT-Pro-B Natriuret Pep 1330 pg/mL (<450) H 09/04/24 14:10 Nutrition Diagnosis: Inadequate oral intake r/t confusion aeb 2-3 days <25% PO intakes Interventions: 1. Trial ONS EER: 1500 kcals (15 kcal/kg) Monitoring/Evaluations: ONS tolerance, PO intakes Electronically Signed by: Carol Mccullough 09/11/24 14:41 Clinical Dietitian [address] [id number]
[2024-09-11 16:00] VITALS: BP 113/61; PULSE 69; RESP 18; TEMP 37.1; O2SAT 98
[2024-09-11] MEDS: FOSFOMYCIN 3 GM PACKET PO (18:03)
[2024-09-11 20:00] VITALS: BP 138/74; PULSE 74; RESP 19; TEMP 37.1; O2SAT 96
[2024-09-11] MEDS: QUETIAPINE 25 MG TABLET PO (20:25)
--- NOTE | 2024-09-11 20:35 | PC.NURSE ---
Addendum entered by Eleonora Foote R.N. 09/12/24 00:08: lidocaine patch was taken off the pyxis, package was open but never given to the patient since the order is for patch to be on for 12 hours and off for 12. Pt still seating in the recliner, pt still dry, declining to use the restroom at the moment. Original Note: pt sitting on her recliner at the moment with chair alarm in place. pt states I don't want to sleep in that bed but if you put the mattress in the floor, I'll sleep there. Pt only took her seroquel tonight, needed a lot of coaching.
[2024-09-12] VITALS: BP 160/83; PULSE 95; RESP 17; TEMP 36.3; O2SAT 95
[2024-09-12 04:00] VITALS: BP 164/72; PULSE 96; RESP 18; TEMP 36.7; O2SAT 95
[2024-09-12] MEDS: LEVOTHYROXINE 125 MCG TABLET PO (05:49)
[2024-09-12 06:09] LABS: Add Manual Diff / Slide Review NO; Basophils Absolute Auto 0 /uL (0-100); Basophils Percent Auto 0.4 % (0-2); Eosinophils Absolute Auto 300 /uL (0-450); Eosinophils Percent Auto 3.1 % (2-4); Hematocrit 39.6 % (36-46); Hemoglobin 12.9 g/dL (12.0-16.0); Lymphocytes Absolute Auto 2400 /uL (1100-4500); Lymphocytes Percent Auto 27.1 % (25-40); Mean Corpuscular HGB Conc 32.6 % (30-36); Mean Corpuscular Hemoglobin 27.2 PG (26-34); Mean Corpuscular Volume 83.6 fL (80-100); Monocytes Absolute Auto 900 /uL (0-900); Monocytes Percent Auto 10.5 % (3-14); Neutrophils Absolute Auto 5300 /uL (1500-7000); Neutrophils Percent Auto 58.9 % (50-75); Platelet Count 279 X10^3/uL (150-400); Red Blood Cell Count 4.73 X10^6/uL (4.0-5.2)
[2024-09-12 06:32] LABS: BUN Creatinine Ratio 15.3 (6-22); Blood Urea Nitrogen 24 mg/dL (7-17); Calcium 9.5 mg/dL (8.4-10.2); Carbon Dioxide 27 mmol/L (22-32); Chloride 102 mmol/L (98-107); Estimated Glomerular Filt Rate 31 mL/min (>60); Glucose 122 mg/dL (80-110); HEMOLYSIS < 15 (0-50); Magnesium 2.2 mg/dL (1.6-2.3); Potassium 2.9 mmol/L (3.4-5.1); Sodium 140 mmol/L (137-145)
[2024-09-12 08:00] VITALS: BP 141/75; PULSE 78; RESP 16; TEMP 36.4; O2SAT 94
--- NOTE | 2024-09-12 09:10 | OT.IPNOTE ---
Pt initially agreed to get up and use the bathroom and once FWW in front of her. Pt decided not having to go and just wanting to stay in the recliner and listen to [employer].
[2024-09-12 09:57] VITALS: BP 141/75; PULSE 78
[2024-09-12] MEDS: FUROSEMIDE 40 MG TABLET PO (09:57)
[2024-09-12] MEDS: SERTRALINE 50 MG TABLET PO (09:57)
[2024-09-12] MEDS: METOPROLOL ER 25 MG TABLET PO (09:57)
[2024-09-12] MEDS: CLOPIDOGREL 75 MG TABLET PO (09:57)
[2024-09-12] MEDS: POTASSIUM CHLORIDE 20 MEQ TAB 40 MEQ PO ×2 (09:58→17:51)
--- NOTE | 2024-09-12 13:45 | PT.IPTN ---
Current Diagnoses Fracture of one rib, left side, initial encounter for closed fracture (09/04/24) Physical Therapy Treatment Note M2 PT-IP Current Condition Start: 09/05/24 12:54 Freq: NEEDED Status: Active Protocol: Document 09/05/24 11:40 AB (Rec: 09/05/24 13:07 AB [id number]) Physical Therapy Current Condition Current Condition Evaluation Date 09/05/24 Treatment Diagnosis s/p fall; L rib fx 6-10; L hemothorax; difficulty in walking Onset Date 09/04/24 M3 PT-IP Subjective Start: 09/05/24 12:54 Freq: NEEDED Status: Active Protocol: Document 09/12/24 13:45 AB (Rec: 09/12/24 15:57 AB [id number]) Subjective Physical Therapy Visit Type Type Treatment Note Visit Start Time 13:45 Visit Stop Time 14:30 Notes checked on pt x 2. pt asked PT to come back on first attempt. agreed to do PT on 2nd attempt Number of GARMENT TURNER Visits 0 Physical Therapy Visit Comments Patient Comments agreed to do PT M4 PT-IP Mobility and Gait Start: 09/05/24 12:54 Freq: NEEDED Status: Active Protocol: Document 09/12/24 13:45 AB (Rec: 09/12/24 15:57 AB [id number]) PT-Transfer Assessment Sit to and From Stand Sit to and from Stand Minimal Assistance,1 Person Assistance,Use of Upper Extremities Equipment Transfer Assistive Device Gait Belt,Front Wheeled Walker Orthotic/Prosthetic Devices or Brace: No Transfers Transfer Destination Toilet Transfer Technique ambulated Transfer Ability Level of Assist Minimal Assistance,1 Person Assistance,Use of Upper Extremities Comments Mobility Comments pt sitting on chair and agreed to do PT. pt directs her own care and can be resistive to care. initially refusing safety belt but then agreed after education. agreed to walk. completed sit to stand min A. upon standing, pt stated that she might need to do a BM. instructed pt to walk towards the toilet. ambulated ~ 12 ft using FWW min A and cues for safety. needed assist with hygiene care and brief management. completed sit to stand from the toilet using grab bar to get up min A and max cues. able to stand CGA while NAC assisted pt with hygiene care and brief management. pt ambulated back to her chair using fWW min A and cues. positioned pt on the chair. call light and table placed within reach. Gait Assessment Gait Gait Assistance Required: Minimum Assistance Distance (Feet) 12 Able to Maintain Weight Bearing Status Yes During Gait Assistive Devices Assistive Device Gait Belt,Front Wheeled Walker Orthotic/Prosthetic Devices or Brace: No Gait Deviations General Gait Pattern Decreased Stride Length, Decreased Feet Clearance,Step- to Gait Factors Limiting Gait Function Factors Limiting Gait Function Decreased Activity Tolerance, Decreased Strength,Difficulty Following Directions,Limited Range of Motion,Poor Balance, Poor Safety Awareness M5 PT-IP Objective Assessments Start: 09/05/24 12:54 Freq: NEEDED Status: Active Protocol: Document 09/05/24 11:40 AB (Rec: 09/05/24 13:07 AB [id number]) Orientation Orientation/Cognition Level of Alertness Confusional State Orientation Name Language Function Ability Hard of Hearing Safety Awareness Decreased Safety Awareness Memory Description Short Term Impaired Gross Range of Motion Lower Extremity ROM Assessment Within Functional Limits Strength Lower Extremity Strength Assessment Left Impaired Hip 3+/5 Knee 3+/5 M6 PT-IP Treatment Start: 09/05/24 12:54 Freq: NEEDED Status: Active Protocol: Document 09/12/24 13:45 AB (Rec: 09/12/24 15:57 AB [id number]) Physical Therapy Treatment Education Education Provided Safety M7 PT-IP Assessment and Plan Start: 09/05/24 12:54 Freq: NEEDED Status: Active Protocol: Document 09/12/24 13:45 AB (Rec: 09/12/24 15:57 AB [id number]) PT Summary Assessment and Plan Potential Rehabilitation Potential Fair Summary Impairments Pain,ROM,Strength,Balance, Coordination,Sensation,Tone, Cognition,Bed Mobility, Transfers,Gait,Activity Tolerance Progress Towards Goals Slow Progress due to Activity Tolerance,Slow Progress - Other Assessment Summary pt improving slowly with mobility and able to ambulate to the toilet today using FWW min A and max cues. pt will benefit from SNF rehab to improve overall strength and mobility independence. Goals Bed Mobility Goal Minimal Assistance Transfer Goal Minimal Assistance,Front Wheeled Walker Gait Goal Minimal Assistance,Front Wheel Walker,Colt Walker Gait Distance 50 Other Goals improve bed mobility, transfers and ambulation using LRAD ~ 100 ft SBA Days to Meet Goals 10 Frequency of Treatment Frequency Of Treatment Once a Day Treatment Plan Physical Therapy Treatment Plan Bed Mobility Training,Transfer Training,Gait Training, Therapeutic Exercise,Balance Retraining,Discharge Planning, Hot or Cold Pack,Neuromuscular Re-ed,Coordination Retraining ,Manual Therapy Precautions Other Precautions falls Recommendations To Nursing Amount of Assist Needed 2 Person Assist Discharge Recommendations Transportation Needs at Discharge Wheelchair/Cabulance
[2024-09-12 14:00] VITALS: BP 142/75; PULSE 74; RESP 18; TEMP 36.5; O2SAT 96
--- NOTE | 2024-09-12 14:33 | CM.DPC ---
DCP Cont. Reviewed EMR and team rounds for status updates. Pt was denied by [facility] after their bedside assessment today. LEATHER SCRUBBER did receive a call from [facility] that can accept tomorrow, 09/13. Transportation plan pending, will confirm in the am. Updated pt, her DPOA, and RN. Pt will need to either go by private vehicle, or by private pay cabulance. Will discuss with Michela/YULIA in the am.
--- NOTE | 2024-09-12 14:38 | OT.IP.TRT ---
Current Diagnoses Fracture of one rib, left side, initial encounter for closed fracture (09/04/24) Occupational Therapy Treatment Note M2 OT-IP Current Condition Start: 09/05/24 14:11 Freq: Status: Active Protocol: Document 09/05/24 14:12 [facility] (Rec: 09/05/24 14:26 [facility] [id number]) Occupational Therapy Current Condition Current Condition Evaluation Date 09/05/24 Treatment Diagnosis SOB, left 6-10th rib fx Diagnosis Onset Date 09/04/24 M3 OT- IP Subjective and Pain Start: 09/05/24 14:11 Freq: Status: Active Protocol: Document 09/12/24 14:49 [facility] (Rec: 09/12/24 14:53 [facility] [id number]) OT- Subjective Occupational Therapy Visit Type Type Treatment Note Visit Start Time 14:35 Visit Stop Time 14:43 Occupational Therapy Visit Comments Patient Comments Attempted to see pt again and pt agreed to do oral care needs. OT Pain Assessment Pain Present Pain Present Denied Pain M4 OT- IP ADL's Start: 09/05/24 14:11 Freq: Status: Active Protocol: Document 09/12/24 14:49 [facility] (Rec: 09/12/24 14:53 [facility] [id number]) OT [id number] Comments OT Self-Feeding Comments Not at meal time. OT ADL-Grooming Comments OT Grooming Comments Pt able to wash her face after set-up. OT ADL-Oral Care General Eval Oral Care Ability Standby Assistance,Minimal Assistance Areas of Assistance Retrieving/Set-Up of Items Comments Oral Care Comments Due to poor vision, having to assist to hold the basin in front of her to spit. OT ADL-Toileting Comments OT Toileting Comments Pt states did earlier. M5 OT- IP IADL's Start: 09/05/24 14:11 Freq: Status: Active Protocol: Document 09/05/24 14:12 [facility] (Rec: 09/05/24 14:26 [facility] [id number]) OT-Instrumental Activities of Daily Living Home Safety Awareness Home Safety Comments Pt aware will need assist but wanting to go home. Medication Management Medication Management Caregiver Administers Money Management Money Management Caregiver Provides Assistance Meal Preparation Meal Preparation Caregiver Provides Assist Web Marketing Manager Web Marketing Manager Caregiver Provides Assist M6 OT- IP Functional Cognition Start: 09/05/24 14:11 Freq: Status: Active Protocol: Document 09/12/24 14:49 [facility] (Rec: 09/12/24 14:53 [facility] [id number]) Cognitive Factors Limiting Selfcare Function Cognitive Ability Level of Alertness Alert Cognitive Comments Cognitive Assessment Comments Pt more alert in PM and cooperative and agreed to do grooming needs. M7 OT- IP Mobility and Balance Start: 09/05/24 14:11 Freq: Status: Active Protocol: Document 09/08/24 10:57 [facility] (Rec: 09/08/24 11:02 [facility] [id number]) OT-Transfer Assessment Comments Mobility Comments Pt initially initiated to move her legs to the edge of the bed and then stopped. M8 OT- IP Objective Assessments Start: 09/05/24 14:11 Freq: Status: Active Protocol: Document 09/05/24 14:12 [facility] (Rec: 09/05/24 14:26 [facility] [id number]) OT Gross Range of Motion Upper Extremity Range of Motion Assessment Left Impaired OT Strength Upper Extremity Strength Assessment Left Impaired Comments Strength Comments Lue hand contracture and difficulty to open so able to put the left hand on the FWW. Pt refusing to have her left hand cleaned at this time. OT- Coordination Assessment Upper Extremity Finger to Nose Test Left UE Impaired Finger Tapping Test Left UE Impaired OT-Muscle Tone Assessment Comments Muscle Tone Comments Increased tone in RUE. M9 OT- IP Assessment and Plan Start: 09/05/24 14:11 Freq: Status: Active Protocol: Document 09/12/24 14:49 [facility] (Rec: 09/12/24 14:53 [facility] [id number]) OT Summary Assessment and Plan Potential Rehabilitation Potential Fair Analytic Complexity at Evaluation Moderate Summary OT Impairments Pain,Strength,Balance,Tone, Functional Cognition, Functional Mobility,Self- Feeding,Grooming,Dressing, Toileting,Bathing,Toilet Transfers,Shower Transfers, Activity Tolerance Progress Towards Goals Slow Progress due to Pain,Slow Progress due to Medical Issues,Slow Progress due to Activity Tolerance,Slow Progress due to Cognition Assessment Summary Pt agreed to do grooming and oral care need in the PM. Pt to go to skilled rehab tomorrow. Goals Grooming Goal Independent Dressing Goal Minimal Assistance Toileting Goal Minimal Assistance Bathing Goal Moderate Assistance Toilet Transfer Goal Minimal Assistance Shower Transfer Goal Minimal Assistance Days to Meet Goals 25 Frequency of Treatment Other frequency 5x/week Treatment Plan OT Treatment Plan ADL Training,Functional Cognition Training,Functional Mobility,Patient/Family Education,Discharge Planning Other Treatment Recommendations and Next ADLs standing Treatment Focus Discharge Recommendations OT Discharge Recommendations SNF Rehab Transportation Needs at Discharge Wheelchair/Cabulance
--- NOTE | 2024-09-12 19:05 | P.PN_ITS ---
Subjective Subjective Interval history: Summary: This is an 89-year-old female who had a mechanical fall with multiple left-sided rib fractures and a small hemothorax. She was initially hypoxemic, this is improving and her pain control is improving. She was set up to [facility] on September 07 but had some agitation on the evening of September 06 which we will delay her discharge. S: Pleasant today, took all of her medications. Exam Vital Signs (past 8 hours): - 09/12/24 14:00 Temperature 97.7 F Pulse Rate 74 Respiratory Rate 18 Blood Pressure 142/75 H Pulse Oximetry 96 Fraction of Inspired Oxygen 24 SaO2/FiO2 Ratio 404 Oxygen Delivery Method Room Air Oxygen Flow Rate 0 Narrative Exam Narrative: NAD, fluent speech. Oriented to person only, confused about location and time Left facial asymmetry (slight) and left weakness, chronic. No leg edema. Objective Labs 09/12/24 05:44 09/12/24 05:44 Labs: Laboratory Results - last 24 hr 09/12/24 05:44 WBC 9.0 RBC 4.73 Hgb 12.9 Hct 39.6 MCV 83.6 MCH 27.2 MCHC 32.6 RDW 16.0 H Plt Count 279 Neut % (Auto) 58.9 Lymph % (Auto) 27.1 [place] % (Auto) 10.5 Eos % (Auto) 3.1 Baso % (Auto) 0.4 Neut # (Auto) 5300 Lymph # (Auto) 2400 [place] # (Auto) 900 Eos # (Auto) 300 Baso # (Auto) 0 Sodium 140 Potassium 2.9 L Chloride 102 Carbon Dioxide 27 BUN 24 H Creatinine 1.57 H Estimated GFR 31 L BUN/Creatinine Ratio 15.3 Glucose 122 H Calcium 9.5 Magnesium 2.2 PFSH Medical History Postmenopausal atrophic vaginitis Functional incontinence Urge incontinence Degenerative disc disease Lumbar spinal stenosis Stenosis of right carotid artery greater than 50% Chronic sciatica of right side Hyperlipidemia Osteopenia History of non-ST elevation myocardial infarction (NSTEMI) 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 Mechanical fall with left sided rib fracture along with small hemothorax. Present on admission and improving. 2. Respiratory failure with hypoxia. Present on admission and improving. 3. Acute on chronic diastolic heart failure exacerbation. Present on admission and improving. 4. Acute metabolic or toxic encephalopathy. Chronic cognitive impairment. 5. Acute cystitis with enterobacter. 6. History of stroke/TIA with chronic left hemiparesis. Present on admission and stable. 6. Hypertension. Not active. Hold home blood pressure medication as blood pressure is low normal. 7. Hypothyroidism. Present on admission and active. 8. Hyperlipidemia. Present on admission and active. 9. Severe aortic stenosis, Present on admission and stable. 10. JAGDEEP, improved PLAN: Patient appears calm today. She is not entirely clear the etiology of her current situation. It is not clear if her delirium is due to a UTI / metabolic encephalopathy or a hospital delirium in the setting of previously documented cognitive impairment (SLUMS in 03/2023). Another possibility is a toxic encephalopathy from pain medications. Respiratory failure has resolved, no supplemental therapy needed. -ceftriaxone 1 g IV Q 24 hours done for worsened delirium but patient lost IV, was refusing oral medications. Was treated with a single dose of fosfomycin instead. Course is considered completed at this time. -remain off Gabapentin, hydromorphone with delirium. With increased pain resumed very small 2.5 mg oxycodone. -oxygen as needed, off supplemental therapy today. -lidocaine patches for pain control, continue. -physical therapy as tolerated, -patient intermittently refusing her home medications. Continue them when she allows. -continue Plavix, monitor bleeding. -seroquel given 09/09, refused 09/10. I think this would provide some benefit for her -JAGDEEP improved. likely due to increased diuretic dosing given for acute on chronic heart failure. Reduced furosemide back to home dosing. -potassium was repleted today. Ordered for standing potassium with furosemide. DVT prophylaxis SCDs and Plavix. Code status DNR/DNI YANG is unclear, awaiting accepting SNF. Has been in the hospital for 2 midnights hospital stay with inpatient status. Time-Based Coding :: [TOTAL MINUTES] spent with patient and on the chart (including review of chart, obtaining history, exam, reviewing outside data, placing orders, documenting exam and treatment plan, and counseling patient) on [DATE]. Quality VTE Deep Vein Thrombosis/Pulmonary Embolism Present on Admission: No
--- NOTE | 2024-09-12 19:25 | PC.NURSE ---
Day shift nursing note: Pt alert and oriented to self and place, but still forgetful. Needs frequent reminding of the plan to discharge to rehab. Cooperating with nursing staff and easy to redirect and she took her all morning medications with encouragement from this nurse and her DPOA. Able to communicate her needs, uses the call light appropriately, willing to walk into bathroom with PT and RN. Little to no appetite today and needs encouragement to eat. Refusing to lay in bed and will only sit in the recliner. Repositioned with pillows in chair for comfort. Call light in reach.
[2024-09-12] MEDS: QUETIAPINE 25 MG TABLET PO (20:09)
[2024-09-12 20:54] VITALS: BP 152/65; PULSE 87; RESP 18; TEMP 36.4; O2SAT 94
[2024-09-13 04:00] VITALS: BP 156/85; PULSE 74; RESP 18; TEMP 37; O2SAT 96
[2024-09-13] MEDS: LEVOTHYROXINE 125 MCG TABLET PO (05:13)
[2024-09-13 05:55] LABS: Add Manual Diff / Slide Review NO; Basophils Absolute Auto 0 /uL (0-100); Basophils Percent Auto 0.4 % (0-2); Eosinophils Absolute Auto 300 /uL (0-450); Eosinophils Percent Auto 3.5 % (2-4); Hematocrit 38.6 % (36-46); Hemoglobin 12.7 g/dL (12.0-16.0); Lymphocytes Absolute Auto 2100 /uL (1100-4500); Lymphocytes Percent Auto 22.7 % (25-40); Mean Corpuscular HGB Conc 32.9 % (30-36); Mean Corpuscular Hemoglobin 27.7 PG (26-34); Mean Corpuscular Volume 84.4 fL (80-100); Monocytes Absolute Auto 1000 /uL (0-900); Neutrophils Absolute Auto 5700 /uL (1500-7000); Neutrophils Percent Auto 62.4 % (50-75); Platelet Count 262 X10^3/uL (150-400); Red Blood Cell Count 4.57 X10^6/uL (4.0-5.2); Red Cell Distribution Width 16.1 % (11.6-14.8); White Blood Cell Count 9.1 X10^3/uL (4.5-11.0)
[2024-09-13 06:22] LABS: Blood Urea Nitrogen 22 mg/dL (7-17); Calcium 9.3 mg/dL (8.4-10.2); Carbon Dioxide 26 mmol/L (22-32); Chloride 105 mmol/L (98-107); Estimated Glomerular Filt Rate 31 mL/min (>60); Glucose 115 mg/dL (80-110); HEMOLYSIS < 15 (0-50); Magnesium 2.1 mg/dL (1.6-2.3); Potassium 3.3 mmol/L (3.4-5.1); Sodium 140 mmol/L (137-145)
[2024-09-13 08:00] VITALS: BP 145/81; PULSE 79; RESP 20; TEMP 36.9; O2SAT 93
--- NOTE | 2024-09-13 09:00 | PT.IPTN ---
Current Diagnoses Fracture of one rib, left side, initial encounter for closed fracture (09/04/24) Physical Therapy Treatment Note M2 PT-IP Current Condition Start: 09/05/24 12:54 Freq: NEEDED Status: Active Protocol: Document 09/05/24 11:40 [facility] (Rec: 09/05/24 13:07 AB [id number]) Physical Therapy Current Condition Current Condition Evaluation Date 09/05/24 Treatment Diagnosis s/p fall; L rib fx 6-10; L hemothorax; difficulty in walking Onset Date 09/04/24 M3 PT-IP Subjective Start: 09/05/24 12:54 Freq: NEEDED Status: Active Protocol: Document 09/13/24 10:07 TS (Rec: 09/13/24 10:19 TS [id number]) Subjective Physical Therapy Visit Type Type Treatment Note Visit Start Time 09:00 Visit Stop Time 09:20 Number of CERTIFIED LOW VISION THERAPIST Visits 1 Physical Therapy Visit Comments Patient Comments Pt found resting in the chair, she is agreeable to PT. M4 PT-IP Mobility and Gait Start: 09/05/24 12:54 Freq: NEEDED Status: Active Protocol: Document 09/13/24 10:07 TS (Rec: 09/13/24 10:19 TS [id number]) PT-Transfer Assessment Sit to and From Stand Sit to and from Stand Minimal Assistance,1 Person Assistance,Use of Upper Extremities Equipment Transfer Assistive Device Gait Belt,Front Wheeled Walker Orthotic/Prosthetic Devices or Brace: No Comments Mobility Comments STS with FWW Donald, p trequires cues to push from arms of the chair. She ambulates Donald with use of FWW. Pt requests to use the toilet. Pt performs own pericare. She ambulates ~ 30' in the room Donald. Pt ambulates back to the chair. She was left in the chair, all needs met. Gait Assessment Gait Gait Assistance Required: Minimum Assistance Distance (Feet) 30 Able to Maintain Weight Bearing Status Yes During Gait Assistive Devices Assistive Device Gait Belt,Front Wheeled Walker Orthotic/Prosthetic Devices or Brace: No Gait Deviations General Gait Pattern Decreased Stride Length, Decreased Feet Clearance,Step- to Gait Factors Limiting Gait Function Factors Limiting Gait Function Decreased Activity Tolerance, Decreased Strength,Difficulty Following Directions,Limited Range of Motion,Poor Balance, Poor Safety Awareness PT-Balance Assessment Sitting Balance and Reactions Static Sitting Balance Ability Good Dynamic Sitting Balance Ability Fair Standing Balance and Reactions Static Standing Balance Ability Fair Dynamic Standing Balance Ability Fair Device Used FWW M5 PT-IP Objective Assessments Start: 09/05/24 12:54 Freq: NEEDED Status: Active Protocol: Document 09/05/24 11:40 AB (Rec: 09/05/24 13:07 AB [id number]) Orientation Orientation/Cognition Level of Alertness Confusional State Orientation Name Language Function Ability Hard of Hearing Safety Awareness Decreased Safety Awareness Memory Description Short Term Impaired Gross Range of Motion Lower Extremity ROM Assessment Within Functional Limits Strength Lower Extremity Strength Assessment Left Impaired Hip 3+/5 Knee 3+/5 M6 PT-IP Treatment Start: 09/05/24 12:54 Freq: NEEDED Status: Active Protocol: Document 09/13/24 10:07 TS (Rec: 09/13/24 10:19 TS [id number]) Physical Therapy Treatment Education Education Provided Safety M7 PT-IP Assessment and Plan Start: 09/05/24 12:54 Freq: NEEDED Status: Active Protocol: Document 09/13/24 10:07 TS (Rec: 09/13/24 10:19 TS [id number]) PT Summary Assessment and Plan Potential Rehabilitation Potential Fair Summary Impairments Pain,ROM,Strength,Balance, Coordination,Sensation,Tone, Cognition,Bed Mobility, Transfers,Gait,Activity Tolerance Progress Towards Goals Slow Progress due to Activity Tolerance,Slow Progress - Other Assessment Summary Pt is making some progress with her mobility but is limited by tolerance. She performs STS x2 Donald with FWW. She ambulates ~30' in the room Donald for FWW management. Pt has difficulty managing FWW due to prior stroke on L side . She followed instructions well. PT is recommending SNF at this time. Goals Bed Mobility Goal Minimal Assistance Transfer Goal Minimal Assistance,Front Wheeled Walker Gait Goal Minimal Assistance,Front Wheel Walker,Colt Walker Gait Distance 50 Other Goals improve bed mobility, transfers and ambulation using LRAD ~ 100 ft SBA Days to Meet Goals 10 Frequency of Treatment Frequency Of Treatment Once a Day Treatment Plan Physical Therapy Treatment Plan Bed Mobility Training,Transfer Training,Gait Training, Therapeutic Exercise,Balance Retraining,Discharge Planning, Hot or Cold Pack,Neuromuscular Re-ed,Coordination Retraining ,Manual Therapy Precautions Other Precautions falls Recommendations To Nursing Amount of Assist Needed 1 Person Assist Discharge Recommendations Transportation Needs at Discharge Wheelchair/Cabulance
--- NOTE | 2024-09-13 09:27 | PM.DS.1 ---
History of Present Illness History of Present Illness Date Patient Seen: 09/13/24 Time Patient Seen: 09:27 Chief complaint: Fell left side of body pain, cough Narrative: Per admitting provider, From night doctor: 89 year old female, with past medical history of TIA on Plavix, hyperlipidemia, hypertension, hypothyroidism, and CHF presents with left sided rib pain. Per the patient report, about a week ago, the patient had a mechanical fall in which she was walking with her walker and accidentally fell landed on her left chest. The patient denies any loss of consciousness or hitting her head, but states that she did start to have lab rib cage pain. The patient, however, did not seek any medical help at that time, but stayed at home. The patient states that over the last few days, the patient has an increasing left sided rib cage pain along with some shortness of breath and mild cough. The patient otherwise denies any fever, chills, nausea, vomiting, diarrhea, or focal weakness. In our emergency room, the patient was hemodynamically stable. Labs were relatively benign except for a BNP of 1300s. CT chest abdomen and pelvic shows a small left hemothorax along with nondisplaced 6 to 10th rib fracture. The patient required 2 L of oxygen. The patient was given Lasix 80 mg IV times one along with pain medication and 2 L of oxygen. Our ER physician requested admission to monitor the patient oxygenation as well as possible further diureses. Additional information: Today she was having a lot of left-sided thorax pain with any movement, coughing, or deep breathing. She also notes chronic ocular light sensitivity and asked that the room be dark in. She was not short of breath but is on a simple oxygen mask. She denies any abdominal pain, or nausea. Discharge Providers Provider Date of admission: 09/04/24 19:44 Discharge Date: 09/13/24 Primary care physician: Idalia Bashir MD Consults: 09/04/24 20:11 Consult to Occupational Therapy Evaluate & Treat Comment: Physician Instructions: Evaluate and treat Consult to Physical Therapy Evaluate & Treat Comment: Physician Instructions: Evaluate and Treat Discharge provider: Jose Cruz Hamilton DO Summary Hospital Course Discharge Diagnosis: 1. Mechanical fall with left sided rib fracture along with small hemothorax. Present on admission and improving. 2. Respiratory failure with hypoxia. Present on admission and improving. 3. Acute on chronic diastolic heart failure exacerbation. Present on admission and improving. 4. Acute metabolic or toxic encephalopathy. Chronic cognitive impairment. 5. Acute cystitis with enterobacter. 6. History of stroke/TIA with chronic left hemiparesis. Present on admission and stable. 6. Hypertension. Not active. Hold home blood pressure medication as blood pressure is low normal. 7. Hypothyroidism. Present on admission and active. 8. Hyperlipidemia. Present on admission and active. 9. Severe aortic stenosis, Present on admission and stable. 10. JAGDEEP, improved 11. Sepsis with acute metabolic encephalopathy, with JAGDEEP and acute metabolic encephalopathy, not present on admission, due to acute cystitis. Hospital Course: This is an 89 year old female with PMH of stroke, HTN, hypothyroid, hld, severe aortic stenosis, prior cognitive impairment with SLUMS who was initially admitted for after a mechanical fall with left sided rib fractures and a small hemothorax and respiratory failure with hypoxia. She continued to have pain with inspiration and patient had an increase in opiates with improvement in her pain. However just prior to SNF discharge she became quite delirious. Evaluation showed possible volume overload and an acute cystitis, and her opiates were also reduced. She had slow improvement in her delirium with antibiotics (she completed antibiotic course with ceftriaxone and then fosfomycin once she pulled out her IV), reduction in opiates, and slight diuresis with a slight increase in her home furosemide. She was also started on a low dose of seroquel during her stay with some improvement. With the increase in furosemide she developed and JAGDEEP likely due to this diuresis, as it improved with returning to her home dose. Though this may also be evidence of sepsis from her acute cystitis as well. She was able to be weaned from supplemental oxygen. After social work evaluation, she was able to be transferred to SNF for ongoing physical and occupational therapy. No other changes were recommended to her chronic medications. Time Spent with Patient Time spent: Greater than 30 minutes Exam Vital Signs (past 8 hours): - 09/13/24 04:00 09/13/24 08:00 Temperature 98.6 F 98.5 F Pulse Rate 74 79 Respiratory Rate 18 20 Blood Pressure 156/85 H 145/81 H Pulse Oximetry 96 93 Oxygen Flow Rate 0 0 Fraction of Inspired Oxygen 24 SaO2/FiO2 Ratio 404 Oxygen Delivery Method Room Air Oxygen Flow Rate 0 Narrative Exam Narrative: NAD, fluent speech. Oriented to person only, confused about location and time Left facial asymmetry (slight) and left weakness, chronic. No leg edema. Objective Labs 09/13/24 05:35 09/13/24 05:35 Labs: Laboratory Results - last 24 hr 09/13/24 05:35 WBC 9.1 RBC 4.57 Hgb 12.7 Hct 38.6 MCV 84.4 MCH 27.7 MCHC 32.9 RDW 16.1 H Plt Count 262 Neut % (Auto) 62.4 Lymph % (Auto) 22.7 L [place] % (Auto) 11.0 Eos % (Auto) 3.5 Baso % (Auto) 0.4 Neut # (Auto) 5700 Lymph # (Auto) 2100 [place] # (Auto) 1000 H Eos # (Auto) 300 Baso # (Auto) 0 Sodium 140 Potassium 3.3 L Chloride 105 Carbon Dioxide 26 BUN 22 H Creatinine 1.57 H Estimated GFR 31 L BUN/Creatinine Ratio 14.0 Glucose 115 H Calcium 9.3 Magnesium 2.1 PFSH Medical History Postmenopausal atrophic vaginitis Functional incontinence Urge incontinence Degenerative disc disease Lumbar spinal stenosis Stenosis of right carotid artery greater than 50% Chronic sciatica of right side Hyperlipidemia Osteopenia History of non-ST elevation myocardial infarction (NSTEMI) 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 Osteopenia Essential hypertension History of CVA (cerebrovascular accident) CVA (cerebral vascular accident) Surgical History History of hysterectomy History of cholecystectomy History of bilateral breast reduction surgery History of cataract extraction with lens replacement Family History Other Adopted (not a blood relative) Social History household members: none Smoking Status: Former smoker alcohol intake: current Discharge Plan Discharge Plan Patient Disposition: SNF Transfer to: [facility] Discharge orders & Medications Prescriptions: New lidocaine 5 % Adhesive Patch,Medicated 1 patch topical BEDTIME Qty: 15 0RF acetaminophen 325 mg Tablet 650 mg PO Q6H PRN (Reason: Fever/Mild Pain (1-3)) Qty: 30 0RF quetiapine 25 mg Tablet 25 mg PO BEDTIME 30 Days Qty: 30 0RF potassium chloride [Klor-Con M20] 20 mEq Tablet,Er Particles/Crystals 20 meq PO DAILYCC Qty: 30 0RF Continued sertraline 50 mg tablet 50 mg PO DAILY metoprolol succinate 25 mg tablet extended release 24 hr 12.5 mg PO BID levothyroxine 125 mcg tablet 125 mcg PO DAILY pantoprazole 40 mg tablet,delayed release (DR/EC) 40 mg PO DAILY alendronate 70 mg tablet 70 mg PO WEEKLY furosemide 40 mg tablet 40 mg PO DAILY oxybutynin chloride 5 mg tablet 5 mg PO BID rosuvastatin 40 mg tablet 40 mg PO BEDTIME clopidogrel 75 mg tablet 75 mg PO DAILY gabapentin 300 mg capsule See Rx Instructions .ROUTE .COMPLEX Rx Instructions: Take one 300 mg capsule in AM, Take one 300 mg capsule at Noon, Take two 300 mg capsules at HS acetaminophen 325 mg Tablet 975 mg PO TID Qty: 60 0RF nystatin [Nystop] 100,000 unit/gram Powder 1 applic topical BID Qty: 45 0RF [place]a 60 mg tablet 60 mg PO DAILY Qty: 90 3RF Rx Instructions: must administer with food, preferably a high-fat meal Follow up/Referrals: Idalia Bashir MD [Primary Care Provider] - Discharge Health Status Precautions: [place] Diet/Activity/Treatments Diet: Diet as Tolerated and Low-sodium Liquid consistency: Normal/Thin Food texture: Regular Activity: No restrictions Special Rehabilitation Services Reason for rehabilitation: Recovery r/t decondition Rehab type: Physical therapy and Occupational therapy Visit Report/Discharge Packet Stand Alone Forms: Patient Portal/API Discharge Data Primary Care Provider: Idalia Bashir Quality VTE Deep Vein Thrombosis/Pulmonary Embolism Present on Admission: No
[2024-09-13 09:55] VITALS: BP 145/81; PULSE 79
[2024-09-13] MEDS: POTASSIUM CHLORIDE 20 MEQ TAB PO (09:55)
[2024-09-13] MEDS: SERTRALINE 50 MG TABLET PO (09:55)
[2024-09-13] MEDS: METOPROLOL ER 25 MG TABLET PO (09:55)
[2024-09-13] MEDS: FUROSEMIDE 40 MG TABLET PO (09:56)
[2024-09-13] MEDS: CLOPIDOGREL 75 MG TABLET PO (09:56)
--- NOTE | 2024-09-13 10:22 | CM.DPC ---
DCP Cont. Reviewed EMR and team rounds for status updates. Pt has been medically cleared for d/c today, her friend Kalpana will pick her up at 12:00 to transport her to [facility]. DCP faxed d/c clinicals and PASSAR, no further CM assistance needs indicated at this time.
--- NOTE | 2024-09-13 12:45 | PC.NURSE ---
Pt discharged to [facility] at 1240, escorted off floor in wheelchair accompanied by friend/ride and hospital staff. Discharge teaching included in packet for facility. Report called to Hilda ([phone]) at 1245. All belongings left with patient.
== END 2024-09-13 12:49 | DRG 183 ==
LOC: ED 19:31 → AC 19:46
PROVIDERS: Emergency Medicine; Hospitalist; Internal Medicine; Admitting Provider Internal Medicine; Emergency Provider Student in an Organized Health Care Education/Training Program; Family Provider Internal Medicine; PCP Internal Medicine; Referring Provider Student in an Organized Health Care Education/Training Program; Visit Provider Internal Medicine
DX: S22.42XA Multiple fractures of ribs, left side, initial encounter for closed fracture (principal); A41.9 Sepsis, unspecified organism; G93.41 Metabolic encephalopathy; I50.33 Acute on chronic diastolic (congestive) heart failure; J96.01 Acute respiratory failure with hypoxia; S27.1XXA Traumatic hemothorax, initial encounter; R65.20 Severe sepsis without septic shock; G92.9 Unspecified toxic encephalopathy; I69.354 Hemiplegia and hemiparesis following cerebral infarction affecting left non-dominant side; N30.00 Acute cystitis without hematuria; N17.9 Acute kidney failure, unspecified; I11.0 Hypertensive heart disease with heart failure; E03.9 Hypothyroidism, unspecified; E78.5 Hyperlipidemia, unspecified; R45.1 Restlessness and agitation; I35.0 Nonrheumatic aortic (valve) stenosis; B96.89 Other specified bacterial agents as the cause of diseases classified elsewhere; W18.30XA Fall on same level, unspecified, initial encounter; Z87.891 Personal history of nicotine dependence; Z79.02 Long term (current) use of antithrombotics/antiplatelets; Z66 Do not resuscitate
CPT/HCPCS: 36415; 70450; 71045; 71250; 74176; 80048; 80053; 81001; 83605; 83735; 83880; 84439; 84443; 84484; 85025; 85610; 87077; 87086; 87186; 87633; 93005; 93010; 94640; 94762; 96365; 96375; 97129; 97130; 97162; 97166; 97530; 97535; 99285; J0696; J1171; J1940; J2060; J7613

== ENCOUNTER 2024-12-14 04:55 | Emergency (ER) | payer MEDICARE, BC, SELFPAY ==
[2024-09-04 20:32] VITALS: BMI 37.2
[2024-12-14] VITALS (22 sets, daily range): BP systolic 84–128; BP diastolic 43–63; PULSE 49–75; RESP 11–24; TEMP 36.2; O2SAT 89–97; BMI 33.8
--- NOTE | 2024-12-14 05:01 | DI.RAD.S_ITS ---
PROCEDURE: XR CHEST 1V INDICATIONS: chest pain TECHNIQUE: One view of the chest was acquired. COMPARISON: [facility], CR, XR CHEST 1V, 09/04/2024, 14:04. FINDINGS: Surgical changes and devices: None. Lungs and pleura: Findings concerning for possible right apical pneumothorax. No pleural effusion. Mild bibasilar atelectasis, worse on the left. Mediastinum: Mediastinal contours appear normal. Heart size is enlarged. Stable moderate aortic arch calcification. Bones and chest wall: No obvious displaced fractures. Severely decreased bone mineral density. No suspicious bony lesions. Overlying soft tissues appear unremarkable. IMPRESSION: Findings suspicious for right apical pneumothorax. Recommend CT chest for better characterization. Dictated by: Bob Salazar M.D. on 12/14/2024 at 8:24 Approved by: Bob Salazar M.D. on 12/14/2024 at 8:27
--- NOTE | 2024-12-14 05:14 | EKG_ITS ---
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
[2024-12-14 05:16] LABS: Add Manual Diff / Slide Review NO; Basophils Absolute Auto 0 /uL (0-100); Basophils Percent Auto 0.2 % (0-2); Eosinophils Absolute Auto 200 /uL (0-450); Eosinophils Percent Auto 1.7 % (2-4); Hematocrit 40.5 % (36-46); Hemoglobin 13.2 g/dL (12.0-16.0); Lymphocytes Absolute Auto 1800 /uL (1100-4500); Lymphocytes Percent Auto 17.5 % (25-40); Mean Corpuscular HGB Conc 32.7 % (30-36); Mean Corpuscular Hemoglobin 28.6 PG (26-34); Mean Corpuscular Volume 87.5 fL (80-100); Monocytes Absolute Auto 700 /uL (0-900); Monocytes Percent Auto 6.6 % (3-14); Neutrophils Absolute Auto 7800 /uL (1500-7000); Platelet Count 224 X10^3/uL (150-400); Red Blood Cell Count 4.63 X10^6/uL (4.0-5.2); White Blood Cell Count 10.5 X10^3/uL (4.5-11.0)
--- NOTE | 2024-12-14 05:20 | DI.RAD.S_ITS ---
PROCEDURE: XR SHOULDER RT MIN 2V INDICATIONS: fall, R shoulder pain TECHNIQUE: 2 views of the shoulder were acquired. COMPARISON: [facility], CR, XR SHOULDER RT MIN 2V, 04/08/2024, 12:46. FINDINGS: Bones: No fractures or dislocations. No suspicious bony lesions. Visualized ribs appear intact. Decreased bone mineral density. Soft tissues: No suspicious soft tissue calcifications. IMPRESSION: No acute bony abnormality is seen on x-ray. Dictated by: Bob Salazar M.D. on 12/14/2024 at 8:28 Approved by: Bob Salazar M.D. on 12/14/2024 at 8:29
[2024-12-14 05:21] LABS: Alanine Aminotransferase 16 IU/L (<35); Albumin 4.2 g/dL (3.5-5.0); Albumin Globulin Ratio 1.2 (1.0-2.8); Alkaline Phosphatase 72 U/L (38-126); Aspartate Aminotransferase 29 IU/L (14-36); BUN Creatinine Ratio 12.8 (6-22); Bilirubin Total 0.6 mg/dL (0.2-1.3); Blood Urea Nitrogen 25 mg/dL (7-17); Calcium 9.8 mg/dL (8.4-10.2); Carbon Dioxide 28 mmol/L (22-32); Chloride 100 mmol/L (98-107); Creatine Kinase 261 U/L (30-135); Estimated Glomerular Filt Rate 24 mL/min (>60); Globulin 3.5 g/dL (1.7-4.1); Glucose 129 mg/dL (80-110); HEMOLYSIS < 15 (0-50); Lipase 46 U/L (23-300); Potassium 3.9 mmol/L (3.4-5.1); Sodium 138 mmol/L (137-145); Total Protein 7.7 g/dL (6.3-8.2)
--- NOTE | 2024-12-14 05:21 | DI.RAD.S_ITS ---
PROCEDURE: XR KNEE RT 3V INDICATIONS: GLF, R knee pain TECHNIQUE: 3 views of the knee were acquired. COMPARISON: None. FINDINGS: Bones: No fractures or dislocations. No suspicious bony lesions. Severe medial femorotibial compartment joint space narrowing. Soft tissues: No joint effusion. No suspicious soft tissue calcifications. Mild to moderate scattered atheromatous calcification. IMPRESSION: Severe medial compartment osteoarthritis. Dictated by: Bob Salazar M.D. on 12/14/2024 at 8:29 Approved by: Bob Salazar M.D. on 12/14/2024 at 8:31
[2024-12-14 05:22] LABS: Lactate (Lactic Acid) 1.9 mmol/L (0.7-2.1)
[2024-12-14 05:33] LABS: Troponin I < 0.012 ng/mL (0.01-0.034)
[2024-12-14] MEDS: SODIUM CHLORIDE 0.9% 1,000 ML 500 ML IV (05:37)
--- NOTE | 2024-12-14 07:09 | ED.FALL ---
HPI - Fall General Chief Complaint: Fall Stated Complaint: fall from bed Time Seen by Provider: 12/14/24 04:57 Source: patient and EMS Mode of arrival: EMS History of Present Illness HPI Narrative: Patient is an 89-year-old female with a past medical history of hypothyroidism, CKD, CHF, comes into the ED from home after having mechanical trip and fall. Patient states she was trying to go to the restroom and fell out of her bed landing on her right side, complains of right shoulder right knee pain. According to the medics when they initially arrived patient's blood pressure was low in the 70s systolically, however here patient with map greater than 65. Patient states that she recently moved to [facility]. Patient states that she has chronic right leg/back pain due to history of sciatica, states that this might have made things a little worse but normally is able to stand walk with a walker. She denies hitting her head denies loss of conscious not on any blood thinners denies any other injuries at this time. Time of evaluation she states that she feels fine Related Data Home Medications Medication Instructions Recorded Confirmed rosuvastatin 40 mg tablet 40 mg PO BEDTIME 05/24/19 09/04/24 clopidogrel 75 mg tablet 75 mg PO DAILY 03/27/23 09/04/24 gabapentin 300 mg capsule See Rx Instructions .Route .COMPLEX 03/27/23 06/02/24 alendronate 70 mg tablet 70 mg PO WEEKLY 06/02/24 09/04/24 furosemide 40 mg tablet 40 mg PO DAILY 06/02/24 09/04/24 levothyroxine 125 mcg tablet 125 mcg PO DAILY 06/02/24 09/04/24 metoprolol succinate 25 mg 12.5 mg PO BID 06/02/24 09/04/24 tablet,extended release 24 hr oxybutynin chloride 5 mg tablet 5 mg PO BID 06/02/24 09/04/24 pantoprazole 40 mg tablet,delayed 40 mg PO DAILY 06/02/24 09/04/24 release sertraline 50 mg tablet 50 mg PO DAILY 06/02/24 09/04/24 Previous Rx's Medication Instructions Recorded acetaminophen 325 mg tablet 975 mg (3 x 325 mg) PO TID #60 tabs 03/29/23 nystatin 100,000 unit/gram topical 1 applic topical BID #45 grams 03/29/23 powder (Nystop) ospemifene 60 mg tablet (Osphena) 60 mg PO DAILY #90 tabs 03/15/24 acetaminophen 325 mg tablet 650 mg (2 x 325 mg) PO Q6H PRN 09/13/24 Fever/Mild Pain (1-3) #30 tabs lidocaine 5 % topical patch 1 patch topical BEDTIME #15 ea 09/13/24 potassium chloride 20 mEq 20 meq PO DAILYCC #30 tabs 09/13/24 tablet,extended release(part/cryst) (Klor-Con M) Allergies Allergy/AdvReac Type Severity Reaction Status Date / Time vibegron AdvReac Intermediate Rash Verified 09/04/24 21:49 Review of Systems Review of Systems Narrative: General: Denies fever, chills, weight loss HEENT: Denies headache, eye drainage, eye irritation, head trauma, sore throat, voice change Cardiovascular: Denies any chest pain, palpitations, shortness of breath, tachycardia Respiratory: Denies any shortness of breath, cough, wheeze, stridor GI/: Denies any abdominal pain, nausea, vomiting, diarrhea, bright red blood per rectum, melanotic stools, urinary frequency, urinary retention, dysuria, hematuria MSK: Positive right shoulder, right knee pain Skin: Denies any rashes, lesions, discoloration Neuro: Denies any headache, lightheadedness, dizziness, fainting, weakness Psych: Denies SI/HI Patient History Medical History Postmenopausal atrophic vaginitis Functional incontinence Urge incontinence Degenerative disc disease Lumbar spinal stenosis Stenosis of right carotid artery greater than 50% Chronic sciatica of right side Hyperlipidemia Osteopenia History of non-ST elevation myocardial infarction (NSTEMI) 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 Osteopenia Essential hypertension History of CVA (cerebrovascular accident) CVA (cerebral vascular accident) Surgical History History of hysterectomy History of cholecystectomy History of bilateral breast reduction surgery History of cataract extraction with lens replacement Family History Other Adopted (not a blood relative) Social History household members: none Smoking Status: Former smoker alcohol intake: current Smoking Status: Former smoker alcohol intake frequency: holidays/special occasions only Exam Narrative Exam Narrative: General: Cooperative, comfortable, well-developed, not in acute distress HEENT: Normocephalic, atraumatic, PERRLA, normal sclera, eyelids normal, Neck: Active full range of motion, atraumatic Chest: Normal to inspection, negative crepitus, no overlying erythema ecchymosis Respiratory: Normal respiratory effort, not in acute respiratory distress, clear to auscultation bilaterally negative cough, wheeze, tachypnea, rhonchi, rales Cardiology: Regular rate rhythm negative gallop, murmur, rubs GI/: Normal to inspection, soft, nonrigid, no tenderness to palpation, exam deferred MSK: Full range of active range of motion of all 4 extremities, no tenderness to palpation of any bony prominences. Neurovascularly intact bilateral upper and lower extremities Skin: No rashes lesions noted Neuro: Alert awake oriented x3, moves all 4 extremities spontaneously, cranial nerves intact, able to answer all questions appropriately follows commands appropriately Psych: Cooperative, negative suicidal or homicidal ideations Initial Vital Signs Initial Vital Signs: Vital Signs Pulse Rate 68 12/14/24 04:58 Pulse Oximetry 89 L 12/14/24 04:58 Course Orders Ordered: ED Orders 12/14/24 04:55 Complete Blood Count AUTO DIFF Stat Comprehensive Metabolic Panel Stat Lactate (Lactic Acid) Stat Lipase Stat Troponin & CK Cardiac Panel Stat 12/14/24 05:01 XR chest 1V Stat EKG-12 Lead Stat 12/14/24 05:02 Urinalysis and Microscopic Stat 12/14/24 05:20 XR shoulder RT min 2V Stat 12/14/24 05:21 XR knee RT 3V Stat Sodium Chloride (Normal Saline 0.9%) 1,000 mls @ 500 mls/hr IV BOLUS ONE Stop: 12/14/24 07:24 Last Admin: 12/14/24 05:37 Dose: 500 mls/hr Documented By: Vital Signs Vital signs: Vital Signs - 8 hr 12/14/24 04:58 12/14/24 04:59 12/14/24 04:59 Temperature Pulse Rate 68 65 Respiratory Rate Blood Pressure 103/50 L Pulse Oximetry 89 L 96 Oxygen Delivery Method 12/14/24 05:00 12/14/24 05:00 12/14/24 05:02 Temperature 97.1 F L Pulse Rate 66 69 Respiratory Rate 18 Blood Pressure 94/48 L 103/50 L Pulse Oximetry 95 97 Oxygen Delivery Method Room Air 12/14/24 05:06 12/14/24 05:06 12/14/24 05:30 Temperature Pulse Rate 63 64 Respiratory Rate 23 Blood Pressure 88/48 L Pulse Oximetry 96 Oxygen Delivery Method 12/14/24 05:30 12/14/24 06:00 12/14/24 06:01 Temperature Pulse Rate 54 L 55 L Respiratory Rate 15 14 Blood Pressure 98/55 L Pulse Oximetry Oxygen Delivery Method 12/14/24 06:01 12/14/24 06:30 12/14/24 06:31 Temperature Pulse Rate 58 L Respiratory Rate 13 Blood Pressure 88/53 L 87/54 L Pulse Oximetry Oxygen Delivery Method 12/14/24 06:31 12/14/24 06:33 12/14/24 06:33 Temperature Pulse Rate 56 L 72 Respiratory Rate 17 17 Blood Pressure 113/53 L Pulse Oximetry Oxygen Delivery Method MDM - Fall Differential Diagnosis Differential diagnosis: Likely other (Abrasion, fracture, contusion,) Lab Data 12/14/24 04:55 12/14/24 04:55 Labs: Lab Results 12/14/24 Range/Units 04:55 WBC 10.5 (4.5-11.0) X10^3/uL RBC 4.63 (4.0-5.2) X10^6/uL Hgb 13.2 (12.0-16.0) g/dL Hct 40.5 (36-46) % MCV 87.5 (80-100) fL MCH 28.6 (26-34) PG MCHC 32.7 (30-36) % RDW 16.0 H (11.6-14.8) % Plt Count 224 (150-400) X10^3/uL Neut % (Auto) 74.0 (50-75) % Lymph % (Auto) 17.5 L (25-40) % [place] % (Auto) 6.6 (3-14) % Eos % (Auto) 1.7 L (2-4) % Baso % (Auto) 0.2 (0-2) % Neut # (Auto) 7800 H (5271-6211) /uL Lymph # (Auto) 1800 (8498-7334) /uL [place] # (Auto) 700 (0-900) /uL Eos # (Auto) 200 (0-450) /uL Baso # (Auto) 0 (0-100) /uL Sodium 138 (137-145) mmol/L Potassium 3.9 (3.4-5.1) mmol/L Chloride 100 (98-107) mmol/L Carbon Dioxide 28 (22-32) mmol/L BUN 25 H (7-17) mg/dL Creatinine 1.96 H (0.52-1.04) mg/dL Estimated GFR 24 L (>60) mL/min BUN/Creatinine Ratio 12.8 (6-22) Glucose 129 H (80-110) mg/dL Lactate 1.9 (0.7-2.1) mmol/L Calcium 9.8 (8.4-10.2) mg/dL Total Bilirubin 0.6 (0.2-1.3) mg/dL AST 29 (14-36) IU/L ALT 16 (<35) IU/L Alkaline Phosphatase 72 (38-126) U/L Total Creatine Kinase 261 H (30-135) U/L Troponin I < 0.012 (0.01-0.034) ng/mL Total Protein 7.7 (6.3-8.2) g/dL Albumin 4.2 (3.5-5.0) g/dL Globulin 3.5 (1.7-4.1) g/dL Albumin/Globulin Ratio 1.2 (1.0-2.8) Lipase 46 (23-300) U/L Imaging Data Extremity x-ray #1: Radiologist's Impression: Preliminary read of x-ray right shoulder showing degenerative changes of the glenohumeral and acromioclavicular joint without acute traumatic injury Extremity x-ray #2: Radiologist's Impression: Preliminary read of x-ray of the right knee showing tricompartmental degeneration changes of the right knee without acute traumatic injury Chest x-ray: Radiologist's Impression: Preliminary read showing no acute cardiopulmonary abnormality ECG Data Interpretation: EKG interpreted ED physician sinus 65 beats per minute QTC 470, normal axis nonspecific ST changes no STEMI MDM Narrative Medical decision making narrative: 89-year-old female with a history of JAGDEEP CHF hyperlipidemia presents for mechanical trip and fall earlier today after attempting to go to the restroom, states that out/slipped out of bed landed on the right side complaining of right shoulder right knee pain. Patient had lab work imaging EKG performed here in the emergency department. Patient with negative x-rays without any acute traumatic injuries. Patient EKG nonischemic, troponin negative, patient has remained normotensive the entire time without any intervention here in the emergency department. Given patient without any acute traumatic injuries she will be sent home back to facility, strict return precautions were given she verbalized understanding of this and agrees to being discharged home with outpatient follow up Discharge Plan Departure Patient Disposition: Home Clinical Impression: Fall from ground level, Contusion of right shoulder region, Contusion of knee, right Activity Restrictions/Additional Instructions: Please read the discharge instructions sheet carefully and bring all papers to all doctor follow-up visits, as it may contain information that your doctor may want to see. Disease processes change and evolve, if your symptoms worsen or if you develop any new symptoms that are concerning to you please return for evaluation. Your evaluation today does not show any evidence of any life-threatening/serious illnesses requiring admission to the hospital or surgery. Please follow-up with your doctor for re-evaluation in approximately 1 day. Seek immediate medical attention for any worrisome symptoms. *If you do not have a primary care provider please contact the [facility] Resource line at [phone]. They will ask some questions about your medical history and help get you set up with a doctor in the community. Prescriptions: No Action sertraline 50 mg tablet 50 mg PO DAILY metoprolol succinate 25 mg tablet extended release 24 hr 12.5 mg PO BID levothyroxine 125 mcg tablet 125 mcg PO DAILY pantoprazole 40 mg tablet,delayed release (DR/EC) 40 mg PO DAILY alendronate 70 mg tablet 70 mg PO WEEKLY furosemide 40 mg tablet 40 mg PO DAILY oxybutynin chloride 5 mg tablet 5 mg PO BID rosuvastatin 40 mg tablet 40 mg PO BEDTIME clopidogrel 75 mg tablet 75 mg PO DAILY gabapentin 300 mg capsule See Rx Instructions .ROUTE .COMPLEX Rx Instructions: Take one 300 mg capsule in AM, Take one 300 mg capsule at Noon, Take two 300 mg capsules at HS acetaminophen 325 mg Tablet 975 mg PO TID Qty: 60 0RF nystatin [Nystop] 100,000 unit/gram Powder 1 applic topical BID Qty: 45 0RF lidocaine 5 % Adhesive Patch,Medicated 1 patch topical BEDTIME Qty: 15 0RF acetaminophen 325 mg Tablet 650 mg PO Q6H PRN (Reason: Fever/Mild Pain (1-3)) Qty: 30 0RF potassium chloride [Klor-Con M20] 20 mEq Tablet,Er Particles/Crystals 20 meq PO DAILYCC Qty: 30 0RF Osphena 60 mg tablet 60 mg PO DAILY Qty: 90 3RF Rx Instructions: must administer with food, preferably a high-fat meal Referrals: Idalia Bashir MD [Primary Care Provider] - Stand Alone Forms: Patient Portal/API/Survey
[2024-12-14] MEDS: ACETAMINOPHEN 325 MG TABLET 650 MG PO (07:36)
--- NOTE | 2024-12-14 07:47 | PC.NURSE ---
Addendum entered by Dinora Tinajero R.N. 12/14/24 09:22: 0900 No response to ED Director's attempt to contact [facility] staff. weight clerk attempted and left message. No Response or return call. Addendum entered by Dinora Tinajero R.N. 12/14/24 08:30: 0830 No response from [facility] after several attempts to contact staff on RN cell phone and main line. Spoke to Celia, hall manager, to advise of situation. Celia to call [facility]. Addendum entered by Dinora Tinajero R.N. 12/14/24 08:09: 0806 2nd attempt made to call [facility] to give report and for pt pick-up. No answer on RN phone #[phone]. Left detailed message regarding call back number and reason for call. Also called main phone # [phone]. staff did not answer. Left detailed message on main line . Original Note: [id number] 1st attempt to call report to [facility] and for pt pick-up. No Answer on RN cell #[phone]. Left message.
== END 2024-12-14 09:57 | disposition home or self-care (01) ==
PROVIDERS: Emergency Medicine; Emergency Provider Student in an Organized Health Care Education/Training Program; Family Provider Internal Medicine; PCP Internal Medicine
DX: S40.011A Contusion of right shoulder, initial encounter (principal); S80.01XA Contusion of right knee, initial encounter; W06.XXXA Fall from bed, initial encounter
CPT/HCPCS: 71045; 73030; 73562; 80053; 82550; 83605; 83690; 84484; 85025; 93005; 96360; 96361; 99284

== ENCOUNTER 2024-12-28 16:49 | Observation (INO) | payer MEDICARE, BC, SELFPAY ==
[2024-09-04 20:32] VITALS: BMI 37.2
[2024-12-28] VITALS (7 sets, daily range): BP systolic 99–111; BP diastolic 48–70; PULSE 76–82; RESP 14–30; TEMP 36.1–36.6; O2SAT 94–99; BMI 36.6
--- NOTE | 2024-12-28 16:51 | DI.RAD.S_ITS ---
PROCEDURE: XR CHEST 1V INDICATIONS: increasing shortness of breath TECHNIQUE: One view of the chest was acquired. COMPARISON: [facility], CT, CT CHEST ABD PEL WO CON, 09/04/2024, 16:23. [facility], CR, XR CHEST 1V, 12/14/2024, 5:09. [facility], CR, XR CHEST 1V, 09/04/2024, 14:04. [facility], CR, XR CHEST 1V, 04/08/2024, 12:41. [facility], CR, XR CHEST 2V, 01/19/2023, 15:44. FINDINGS: Surgical changes and devices: None. Lungs and pleura: Basilar-predominant bronchiectasis and interstitial reticulation. Small left pleural effusion. No significant right pleural effusion. No pneumothorax. Mediastinum: Aortic arch calcifications. Moderate hiatal hernia. Mediastinal contours otherwise appear normal. Heart size is normal. Left atrial enlargement. Bones and chest wall: Diffuse osseous demineralization with multiple bilateral rib fractures, better identified on the 09/04/2024 CT chest abdomen pelvis exam. Overlying soft tissues appear unremarkable. IMPRESSION: 1. Small left pleural effusion with interstitial lung disease. 2. Moderate hiatal hernia. Dictated by: Yohan Juarez M.D. on 12/28/2024 at 17:13 Approved by: Yohan Juarez M.D. on 12/28/2024 at 17:17
--- NOTE | 2024-12-28 17:00 | EKG_ITS ---
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
[2024-12-28 17:07] LABS: Add Manual Diff / Slide Review NO; Basophils Absolute Auto 0 /uL (0-100); Basophils Percent Auto 0.1 % (0-2); Eosinophils Absolute Auto 200 /uL (0-450); Hematocrit 36.3 % (36-46); Hemoglobin 11.9 g/dL (12.0-16.0); Lymphocytes Absolute Auto 2000 /uL (1100-4500); Lymphocytes Percent Auto 28.2 % (25-40); Mean Corpuscular HGB Conc 32.7 % (30-36); Mean Corpuscular Hemoglobin 28.8 PG (26-34); Mean Corpuscular Volume 88.3 fL (80-100); Monocytes Absolute Auto 600 /uL (0-900); Monocytes Percent Auto 7.9 % (3-14); Neutrophils Absolute Auto 4300 /uL (1500-7000); Neutrophils Percent Auto 60.8 % (50-75); Platelet Count 192 X10^3/uL (150-400); Red Blood Cell Count 4.11 X10^6/uL (4.0-5.2); Red Cell Distribution Width 16.3 % (11.6-14.8); White Blood Cell Count 7.1 X10^3/uL (4.5-11.0)
[2024-12-28 17:13] LABS: Prothrombin Time 10.9 SECONDS (9.4-12.5)
[2024-12-28 17:15] LABS: PTT Partial Thromboplastin Tim 33 SECONDS (25.1-36.5)
[2024-12-28 17:17] LABS: Alanine Aminotransferase 15 IU/L (<35); Albumin 4.5 g/dL (3.5-5.0); Alkaline Phosphatase 75 U/L (38-126); Aspartate Aminotransferase 29 IU/L (14-36); BUN Creatinine Ratio 20.5 (6-22); Bilirubin Total 0.5 mg/dL (0.2-1.3); Blood Urea Nitrogen 52 mg/dL (7-17); Calcium 9.3 mg/dL (8.4-10.2); Carbon Dioxide 24 mmol/L (22-32); Chloride 102 mmol/L (98-107); Creatine Kinase 219 U/L (30-135); Estimated Glomerular Filt Rate 18 mL/min (>60); Globulin 4.3 g/dL (1.7-4.1); Glucose 126 mg/dL (80-110); HEMOLYSIS < 15 (0-50); Lipase 70 U/L (23-300); Sodium 137 mmol/L (137-145); Total Protein 8.8 g/dL (6.3-8.2)
[2024-12-28 17:29] LABS: NT-proBNP (BNP-Adult 18+) 2420 pg/mL (<450); Troponin I < 0.012 ng/mL (0.01-0.034)
--- NOTE | 2024-12-28 17:42 | ED_ITS ---
HPI - Chest Pain <Cata Craft MD - Last Filed: 12/29/24 08:15> General Chief Complaint: Chest Pain Stated Complaint: CP, hypotension Time Seen by Provider: 12/28/24 17:27 Source: patient and EMS Mode of arrival: EMS Limitations: no limitations History of Present Illness HPI narrative: 89-year-old woman with a history of chronic kidney disease, congestive heart failure hypothyroidism, hyperlipidemia, anticoagulated on clopidogrel Presents for transient chest pain, sciatica, and knee pain. Related Data Home Medications Medication Instructions Recorded Confirmed rosuvastatin 40 mg tablet 40 mg PO BEDTIME 05/24/19 09/04/24 clopidogrel 75 mg tablet 75 mg PO DAILY 03/27/23 12/28/24 gabapentin 300 mg capsule See Rx Instructions .Route .COMPLEX 03/27/23 12/28/24 alendronate 70 mg tablet 70 mg PO WEEKLY 06/02/24 12/28/24 furosemide 40 mg tablet 40 mg PO DAILY 06/02/24 09/04/24 levothyroxine 125 mcg tablet 125 mcg PO DAILY 06/02/24 12/28/24 metoprolol succinate 25 mg 12.5 mg PO BID 06/02/24 12/28/24 tablet,extended release 24 hr oxybutynin chloride 5 mg tablet 5 mg PO BID 06/02/24 12/28/24 pantoprazole 40 mg tablet,delayed 40 mg PO DAILY 06/02/24 12/28/24 release sertraline 50 mg tablet 50 mg PO DAILY 06/02/24 12/28/24 albuterol sulfate 90 mcg/actuation 2 puff inhalation PRN Shortness Of 12/28/24 aerosol inhaler Breath Or Wheezing Previous Rx's Medication Instructions Recorded acetaminophen 325 mg tablet 975 mg (3 x 325 mg) PO TID #60 tabs 03/29/23 nystatin 100,000 unit/gram topical 1 applic topical BID #45 grams 03/29/23 powder (Nystop) ospemifene 60 mg tablet (Osphena) 60 mg PO DAILY #90 tabs 03/15/24 acetaminophen 325 mg tablet 650 mg (2 x 325 mg) PO Q6H PRN 09/13/24 Fever/Mild Pain (1-3) #30 tabs lidocaine 5 % topical patch 1 patch topical BEDTIME #15 ea 09/13/24 potassium chloride 20 mEq 20 meq PO DAILYCC #30 tabs 09/13/24 tablet,extended release(part/cryst) (LinkreyesYovany Jen) Allergies Allergy/AdvReac Type Severity Reaction Status Date / Time vibegron AdvReac Intermediate Rash Verified 12/28/24 16:51 <Pineda Pang MD - Last Filed: 12/28/24 21:49> History of Present Illness HPI narrative: 89-year-old woman with history of stroke and subsequent left arm weakness and flexion contracture, history of chronic kidney disease, congestive heart failure hypothyroidism, hyperlipidemia, anticoagulated on clopidogrel Presents for right chest and right breast area pain. She had a fall she believes 1 month ago, takes Plavix no other blood thinner medications, has pain to the right lateral chest and right breast with bruising to the right breast. She has shortness of breath increased since yesterday. Denies cough fevers or chills. She has leg swelling both sides, unchanged from recent, no change in medications or missed doses of medications. 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 Osteopenia Essential hypertension History of CVA (cerebrovascular accident) CVA (cerebral vascular accident) Surgical History History of hysterectomy History of cholecystectomy History of bilateral breast reduction surgery History of cataract extraction with lens replacement Family History Other Adopted (not a blood relative) Social History household members: none Smoking Status: Former smoker alcohol intake: current Smoking Status: Former smoker alcohol intake frequency: holidays/special occasions only Exam <Cata Craft MD - Last Filed: 12/29/24 08:15> Initial Vital Signs Initial Vital Signs: Vital Signs Temperature 98 F 12/28/24 16:59 Pulse Rate 80 12/28/24 16:59 Respiratory Rate 30 H 12/28/24 16:59 Blood Pressure 111/52 L 12/28/24 16:59 Pulse Oximetry 97 12/28/24 16:59 Oxygen Delivery Method Room Air 12/28/24 16:59 <Pineda Pang MD - Last Filed: 12/28/24 21:49> Narrative Exam Narrative: GENERAL: Well-developed patient, in mild distress. HEAD: Atraumatic. Normocephalic. EYES: Pupils equal round and reactive. Extraocular motions intact. No scleral icterus. No injection or drainage. ENT: Nose without bleeding, purulent drainage. Throat without erythema, tonsillar hypertrophy or exudate. Airway patent. NECK: Trachea midline. Non tender CARDIOVASCULAR: Regular rate and rhythm without murmurs, gallops, or rubs. RESPIRATORY: Clear to auscultation. Breath sounds equal bilaterally. No wheezes, rales, or rhonchi. Right lateral breast with ecchymoses appears recent days. Mild chest wall discomfort without bruising or crepitance, no retractions, speaks in full sentences, no respiratory distress. GASTROINTESTINAL: Abdomen soft, non-tender, nondistended. EXTREMITIES: No edema or joint tenderness. Lower extremity edema bilateral 1+ to mid calves. Left upper extremity flexion contracture from old stroke noted BACK: Nontender without deformity or crepitance. No flank tenderness. NEURO: AOx3. Left upper extremity flexion contracture from old stroke. SKIN: No rash or erythema of visible areas Initial Vital Signs Initial Vital Signs: Vital Signs Temperature 98 F 12/28/24 16:59 Pulse Rate 80 12/28/24 16:59 Respiratory Rate 30 H 12/28/24 16:59 Blood Pressure 111/52 L 12/28/24 16:59 Pulse Oximetry 97 12/28/24 16:59 Oxygen Delivery Method Room Air 12/28/24 16:59 Course <Cata Craft MD - Last Filed: 12/29/24 08:15> Orders Ordered: Acetaminophen (Acetaminophen 325 Mg Tablet) 650 mg PO Q6H PRN PRN Reason: Fever/Mild Pain (1-3) Atorvastatin Calcium (Atorvastatin 20 Mg Tablet) 80 mg PO BEDTIME [facility] Clopidogrel Bisulfate (Clopidogrel 75 Mg Tablet) 75 mg PO DAILY [facility] Furosemide (Furosemide 40 Mg Tablet) 40 mg PO 0800,1700 [facility] Gabapentin (Gabapentin 300 Mg Capsule) 300 mg PO 0800,1200 [facility] Gabapentin (Gabapentin 300 Mg Capsule) 600 mg PO 2100 [facility] Heparin Sodium (Porcine) (Heparin 5,000 Unit/Ml Vial) 5,000 unit SUBCUT BID [facility] Last Admin: 12/28/24 20:48 Dose: 5,000 unit Documented By: DIALLO Levothyroxine Sodium (Levothyroxine 125 Mcg Tablet) 125 mcg PO DAILY [facility] Naloxone HCl (Naloxone 0.4 Mg/Ml Vial) 0.2 mg IV Q2MIN PRN PRN Reason: Opiate Reversal Ondansetron HCl (Ondansetron 4 Mg/2 Ml Inj) 4 mg IV Q8HR PRN PRN Reason: Nausea And Vomiting Oxybutynin (Oxybutynin 5 Mg Tablet) 5 mg PO BID [facility] Pantoprazole Sodium (Pantoprazole Dr 40 Mg Tablet) 40 mg PO DAILY [facility] Sertraline HCl (Sertraline 50 Mg Tablet) 50 mg PO DAILY [facility] Sodium Chloride (Sodium Chloride 0.9% Flush) 10 ml IV PRN PRN PRN Reason: Flush Sodium Chloride (Sodium Chloride 0.9% Flush) 10 ml IV BID [facility] Last Admin: 12/28/24 20:47 Dose: 10 ml Documented By: DIALLO Discontinued Medications Acetaminophen (Acetaminophen 325 Mg Tablet) 650 mg PO NOW ONE Stop: 12/28/24 19:43 Last Admin: 12/28/24 19:48 Dose: 650 mg Documented By: KONRAD Aspirin (Aspirin 81 Mg Chew Tab) 324 mg PO NOW ONE Stop: 12/28/24 16:52 Last Admin: 12/28/24 17:44 Dose: Not Given Documented By: MISTY Dextrose (Dextrose 50 % In Water 25 Gm/50 Ml Syringe) 25 gm IV NOW ONE Stop: 12/28/24 17:45 Last Admin: 12/28/24 18:02 Dose: 25 gm Documented By: JUDY Furosemide 80 mg/ Sodium (Chloride) 58 mls @ 116 mls/hr IV NOW ONE Stop: 12/28/24 17:45 Last Infusion: 12/28/24 18:40 Dose: Infused Documented By: Admin: 12/28/24 18:01 Dose: 116 mls/hr Documented By: JUDY Insulin Human Regular (Insulin Regular 100 Unit/Ml 3 Ml Vial) 10 unit IV NOW ONE Stop: 12/28/24 17:45 Last Admin: 12/28/24 17:52 Dose: 10 unit Documented By: JUDY Co-signed By: MISTY Vital Signs Vital signs: Vital Signs - 8 hr 12/28/24 16:59 12/28/24 17:00 12/28/24 17:30 Temperature 98 F Pulse Rate 80 76 79 Respiratory Rate 30 H Blood Pressure 111/52 L 99/48 L 100/65 Pulse Oximetry 97 99 96 Oxygen Delivery Method Room Air Room Air Room Air 12/28/24 18:00 Temperature Pulse Rate 80 Respiratory Rate Blood Pressure 111/70 Pulse Oximetry 97 Oxygen Delivery Method <Pineda Pang MD - Last Filed: 12/28/24 21:49> Orders Ordered: Acetaminophen (Acetaminophen 325 Mg Tablet) 650 mg PO Q6H PRN PRN Reason: Fever/Mild Pain (1-3) Atorvastatin Calcium (Atorvastatin 20 Mg Tablet) 80 mg PO BEDTIME [facility] Clopidogrel Bisulfate (Clopidogrel 75 Mg Tablet) 75 mg PO DAILY [facility] Furosemide (Furosemide 40 Mg Tablet) 40 mg PO 0800,1700 [facility] Gabapentin (Gabapentin 300 Mg Capsule) 300 mg PO 0800,1200 [facility] Gabapentin (Gabapentin 300 Mg Capsule) 600 mg PO 2100 [facility] Heparin Sodium (Porcine) (Heparin 5,000 Unit/Ml Vial) 5,000 unit SUBCUT BID [facility] Last Admin: 12/28/24 20:48 Dose: 5,000 unit Documented By: DIALLO Levothyroxine Sodium (Levothyroxine 125 Mcg Tablet) 125 mcg PO DAILY [facility] Naloxone HCl (Naloxone 0.4 Mg/Ml Vial) 0.2 mg IV Q2MIN PRN PRN Reason: Opiate Reversal Ondansetron HCl (Ondansetron 4 Mg/2 Ml Inj) 4 mg IV Q8HR PRN PRN Reason: Nausea And Vomiting Oxybutynin (Oxybutynin 5 Mg Tablet) 5 mg PO BID [facility] Pantoprazole Sodium (Pantoprazole Dr 40 Mg Tablet) 40 mg PO DAILY [facility] Sertraline HCl (Sertraline 50 Mg Tablet) 50 mg PO DAILY [facility] Sodium Chloride (Sodium Chloride 0.9% Flush) 10 ml IV PRN PRN PRN Reason: Flush Sodium Chloride (Sodium Chloride 0.9% Flush) 10 ml IV BID [facility] Last Admin: 12/28/24 20:47 Dose: 10 ml Documented By: DIALLO Discontinued Medications Acetaminophen (Acetaminophen 325 Mg Tablet) 650 mg PO NOW ONE Stop: 12/28/24 19:43 Last Admin: 12/28/24 19:48 Dose: 650 mg Documented By: KONRAD Aspirin (Aspirin 81 Mg Chew Tab) 324 mg PO NOW ONE Stop: 12/28/24 16:52 Last Admin: 12/28/24 17:44 Dose: Not Given Documented By: MISTY Dextrose (Dextrose 50 % In Water 25 Gm/50 Ml Syringe) 25 gm IV NOW ONE Stop: 12/28/24 17:45 Last Admin: 12/28/24 18:02 Dose: 25 gm Documented By: JUDY Furosemide 80 mg/ Sodium (Chloride) 58 mls @ 116 mls/hr IV NOW ONE Stop: 12/28/24 17:45 Last Infusion: 12/28/24 18:40 Dose: Infused Documented By: Admin: 12/28/24 18:01 Dose: 116 mls/hr Documented By: JUDY Insulin Human Regular (Insulin Regular 100 Unit/Ml 3 Ml Vial) 10 unit IV NOW ONE Stop: 12/28/24 17:45 Last Admin: 12/28/24 17:52 Dose: 10 unit Documented By: JUDY Co-signed By: MISTY Vital Signs Vital signs: Vital Signs - 8 hr 12/28/24 16:59 12/28/24 17:00 12/28/24 17:30 Temperature 98 F Pulse Rate 80 76 79 Respiratory Rate 30 H Blood Pressure 111/52 L 99/48 L 100/65 Pulse Oximetry 97 99 96 Oxygen Delivery Method Room Air Room Air Room Air 12/28/24 18:00 Temperature Pulse Rate 80 Respiratory Rate Blood Pressure 111/70 Pulse Oximetry 97 Oxygen Delivery Method MDM - Chest Pain <Cata Craft MD - Last Filed: 12/29/24 08:15> Lab Data 12/29/24 04:27 12/29/24 04:27 Labs: Lab Results 12/28/24 12/28/24 Range/Units 16:45 18:45 WBC 7.1 (4.5-11.0) X10^3/uL RBC 4.11 (4.0-5.2) X10^6/uL Hgb 11.9 L (12.0-16.0) g/dL Hct 36.3 (36-46) % MCV 88.3 (80-100) fL MCH 28.8 (26-34) PG MCHC 32.7 (30-36) % RDW 16.3 H (11.6-14.8) % Plt Count 192 (150-400) X10^3/uL Neut % (Auto) 60.8 (50-75) % Lymph % (Auto) 28.2 (25-40) % [place] % (Auto) 7.9 (3-14) % Eos % (Auto) 3.0 (2-4) % Baso % (Auto) 0.1 (0-2) % Neut # (Auto) 4300 (4536-0785) /uL Lymph # (Auto) 2000 (6485-8212) /uL [place] # (Auto) 600 (0-900) /uL Eos # (Auto) 200 (0-450) /uL Baso # (Auto) 0 (0-100) /uL PT 10.9 (9.4-12.5) SECONDS INR 1.0 (0.9-1.3) APTT 33 (25.1-36.5) SECONDS Sodium 137 135 L (137-145) mmol/L Potassium 6.0 H 5.8 H (3.4-5.1) mmol/L Chloride 102 102 (98-107) mmol/L Carbon Dioxide 24 24 (22-32) mmol/L BUN 52 H 53 H (7-17) mg/dL Creatinine 2.54 H 2.73 H (0.52-1.04) mg/dL Estimated GFR 18 L 16 L (>60) mL/min BUN/Creatinine Ratio 20.5 19.4 (6-22) Glucose 126 H 168 H (80-110) mg/dL Calcium 9.3 8.9 (8.4-10.2) mg/dL Magnesium 2.0 (1.6-2.3) mg/dL Total Bilirubin 0.5 (0.2-1.3) mg/dL AST 29 (14-36) IU/L ALT 15 (<35) IU/L Alkaline Phosphatase 75 (38-126) U/L Total Creatine Kinase 219 H (30-135) U/L Troponin I < 0.012 < 0.012 (0.01-0.034) ng/mL NT-Pro-B Natriuret Pep 2420 H (<450) pg/mL Total Protein 8.8 H (6.3-8.2) g/dL Albumin 4.5 (3.5-5.0) g/dL Globulin 4.3 H (1.7-4.1) g/dL Albumin/Globulin Ratio 1.0 (1.0-2.8) Lipase 70 (23-300) U/L <Pineda Pang MD - Last Filed: 12/28/24 21:49> Lab Data Attestation: I reviewed the patient's lab results. Lab results narrative: White blood cell count 7100, hemoglobin 11.9, platelets adequate. BUN 52 creatinine 2.54, elevated from prior studies. Glucose 126. Potassium 6.0 elevated. Serum CO 24. Serum chloride 102. Sodium 132. Liver functions normal. Lipase normal. Troponin negative/unmeasurable. Labs: Lab Results 12/28/24 12/28/24 Range/Units 16:45 18:45 WBC 7.1 (4.5-11.0) X10^3/uL RBC 4.11 (4.0-5.2) X10^6/uL Hgb 11.9 L (12.0-16.0) g/dL Hct 36.3 (36-46) % MCV 88.3 (80-100) fL MCH 28.8 (26-34) PG MCHC 32.7 (30-36) % RDW 16.3 H (11.6-14.8) % Plt Count 192 (150-400) X10^3/uL Neut % (Auto) 60.8 (50-75) % Lymph % (Auto) 28.2 (25-40) % [place] % (Auto) 7.9 (3-14) % Eos % (Auto) 3.0 (2-4) % Baso % (Auto) 0.1 (0-2) % Neut # (Auto) 4300 (6308-9288) /uL Lymph # (Auto) 2000 (3060-2608) /uL [place] # (Auto) 600 (0-900) /uL Eos # (Auto) 200 (0-450) /uL Baso # (Auto) 0 (0-100) /uL PT 10.9 (9.4-12.5) SECONDS INR 1.0 (0.9-1.3) APTT 33 (25.1-36.5) SECONDS Sodium 137 135 L (137-145) mmol/L Potassium 6.0 H 5.8 H (3.4-5.1) mmol/L Chloride 102 102 (98-107) mmol/L Carbon Dioxide 24 24 (22-32) mmol/L BUN 52 H 53 H (7-17) mg/dL Creatinine 2.54 H 2.73 H (0.52-1.04) mg/dL Estimated GFR 18 L 16 L (>60) mL/min BUN/Creatinine Ratio 20.5 19.4 (6-22) Glucose 126 H 168 H (80-110) mg/dL Calcium 9.3 8.9 (8.4-10.2) mg/dL Magnesium 2.0 (1.6-2.3) mg/dL Total Bilirubin 0.5 (0.2-1.3) mg/dL AST 29 (14-36) IU/L ALT 15 (<35) IU/L Alkaline Phosphatase 75 (38-126) U/L Total Creatine Kinase 219 H (30-135) U/L Troponin I < 0.012 < 0.012 (0.01-0.034) ng/mL NT-Pro-B Natriuret Pep 2420 H (<450) pg/mL Total Protein 8.8 H (6.3-8.2) g/dL Albumin 4.5 (3.5-5.0) g/dL Globulin 4.3 H (1.7-4.1) g/dL Albumin/Globulin Ratio 1.0 (1.0-2.8) Lipase 70 (23-300) U/L Imaging Data Chest x-ray: Radiologist's Impression: [address] [address] XRay Report Signed Patient: Michela Cao MR#: [id number] : 1935 Acct:[id number] Age/Sex: 89 / F Date of Service: 12/28/24 Loc: ED Accession Number: [id number] Procedure: XR chest 1V Ordering Provider: Cata Craft MD PROCEDURE: XR CHEST 1V INDICATIONS: increasing shortness of breath TECHNIQUE: One view of the chest was acquired. COMPARISON: [facility], CT, CT CHEST ABD PEL WO CON, 09/04/2024, 16:23. [facility], CR, XR CHEST 1V, 12/14/2024, 5:09. [facility], CR, XR CHEST 1V, 09/04/2024, 14:04. [facility], CR, XR CHEST 1V, 04/08/2024, 12:41. [facility], CR, XR CHEST 2V, 01/19/2023, 15:44. FINDINGS: Surgical changes and devices: None. Lungs and pleura: Basilar-predominant bronchiectasis and interstitial reticulation. Small left pleural effusion. No significant right pleural effusion. No pneumothorax. Mediastinum: Aortic arch calcifications. Moderate hiatal hernia. Mediastinal contours otherwise appear normal. Heart size is normal. Left atrial enlargement. Bones and chest wall: Diffuse osseous demineralization with multiple bilateral rib fractures, better identified on the 09/04/2024 CT chest abdomen pelvis exam. Overlying soft tissues appear unremarkable. IMPRESSION: 1. Small left pleural effusion with interstitial lung disease. 2. Moderate hiatal hernia. Dictated by: Yohan Juarez M.D. on 12/28/2024 at 17:13 Approved by: Yohan Juarez M.D. on 12/28/2024 at 17:17 ECG Data Attestation: I personally reviewed and interpreted this ECG as follows: Interpretation: Normal sinus rhythm with rate of 75, no obvious ST segment elevation or depression changes. AK 208, QRS 90, QTC 422. MDM Narrative Medical decision making narrative: 89-year-old female resident at [facility] has had recent falls, right lateral chest discomfort, bruising to the right lateral breasts on examination with some tenderness to right lateral chest. Chest x-ray without obvious lung injury, small left pleural effusion noted. BNP elevated, has been lower and also higher in the past. BUN creatinine elevated compared to recent values. Potassium 6.0 elevated, initial treatment ordered with Lasix and Lokelma, dextrose/insulin. Fluids not given, edema and elevated BNP noted. Consider admission. Records review, last echocardiogram available our records 12/20/2022. Interpretation: Ejection fraction estimated 65-70%. Diastolic function not accurately assess due to confound neck vascular disease. Left atrium severely dilated. Right ventricle normal in size and function. There is moderate mitral stenosis. Mild mitral regurgitation. Severe aortic stenosis. There is mild tricuspid regurgitation. Pulmonary artery pressures can not be estimated because of the lack of a measurable TR jet velocity. Compared to study dated 05/24/2019, the aortic and mitral valve gradients have increased. See report, interpreted by Dr. Ruffin. Repeat troponin also negative. Follow up BNP shows improvement of potassium 5.8, increased creatinine 2.7. Patient with right lateral chest and breast contusion, JAGDEEP, CHF, hyperkalemia, bilateral lower extremity edema, would consider admission. Patient amenable to admission. Will contact hospitalist. 1930, case discussed with hospitalist Dr. Ovalles who accepts patient for admission to observation Critical Care Time <Pineda Pang MD - Last Filed: 12/28/24 21:49> Critical Care Time Critical Care Time: Yes Total Critical Care Time: 35 Attestation: The high probability of a clinically significant, sudden or life threatening deterioration of the [cardiopulmonary, renal, abdominopelvic, musculoskeletal] system(s) required my full and direct attention, intervention and personal management. The aggregate critical care time was [35] minutes. This time is in addition to time spent performing reported procedures but includes the following: [x] Data Review and interpretation [x] Patient assessment and monitoring of vital signs [x] Documentation [x] Medication orders and management Discharge Plan Departure Patient Disposition: Admitted as Observation Clinical Impression: Chest wall pain, Contusion of right breast, JAGDEEP (acute kidney injury), History of aortic stenosis, History of chronic CHF, Hyperkalemia, Congestive heart failure, Bilateral edema of lower extremity Admit Date/Time: 12/28/24 19:30 Admit Provider: Tyler Peña
[2024-12-28] MEDS: SODIUM ZIRCONIUM CYCLOSILICATE 10 GM POWD.PACK PO (17:51)
[2024-12-28] MEDS: INSULIN REGULAR 100 UNIT/ML 3 ML VIAL 10 UNIT IV (17:52)
[2024-12-28] MEDS: FUROSEMIDE 80 MG in SODIUM CHLORIDE 0.9% 50 ML 116 MG IV (18:01)
[2024-12-28] MEDS: DEXTROSE 50 % IN WATER 25 GM/50 ML SYRINGE IV (18:02)
--- NOTE | 2024-12-28 18:30 | PC.NURSE ---
Pericare performed & barrier cream applied to reddened areas in groin. Pure wick placed.
[2024-12-28 19:17] LABS: BUN Creatinine Ratio 19.4 (6-22); Blood Urea Nitrogen 53 mg/dL (7-17); Calcium 8.9 mg/dL (8.4-10.2); Carbon Dioxide 24 mmol/L (22-32); Chloride 102 mmol/L (98-107); Estimated Glomerular Filt Rate 16 mL/min (>60); Glucose 168 mg/dL (80-110); HEMOLYSIS < 15 (0-50); Sodium 135 mmol/L (137-145)
[2024-12-28 19:18] LABS: Potassium 5.8 mmol/L (3.4-5.1)
[2024-12-28 19:29] LABS: Troponin I < 0.012 ng/mL (0.01-0.034)
[2024-12-28] MEDS: ACETAMINOPHEN 325 MG TABLET 650 MG PO (19:48)
--- NOTE | 2024-12-28 20:27 | P.HP_ITS ---
History of Present Illness History of Present Illness Date Patient Seen: 12/28/24 Time Patient Seen: 21:00 Chief complaint: CP, hypotension Narrative: 89 y/o resident of [facility] with PMH of severe , HTN, CKD, HFpEF, CVA with resultant Lt hemiparesis, impaired gait and balance and recurrent falls, presented to ED with worsening dyspnea. She had several vists to ED and floor over the past few years, related often to injury falls. Last year she fractured several Rt ribs, a month ago injured Rt breast with still present hematoma and Rt chest wall tenderness. In the ED with evidence of congestion, small pleural effusions, hyperkalemic with JAGDEEP, treated with Lokelma, Glc+insulin and 80 mg of Lasix IV. 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 Osteopenia Essential hypertension History of CVA (cerebrovascular accident) CVA (cerebral vascular accident) Surgical History History of hysterectomy History of cholecystectomy History of bilateral breast reduction surgery History of cataract extraction with lens replacement Family History Other Adopted (not a blood relative) Social History household members: none Smoking Status: Former smoker alcohol intake: current Meds Home Medications and Allergies Home Medications Medication Instructions Recorded Confirmed Type rosuvastatin 40 mg tablet 40 mg PO BEDTIME 05/24/19 09/04/24 History clopidogrel 75 mg tablet 75 mg PO DAILY 03/27/23 12/28/24 History gabapentin 300 mg capsule See Rx Instructions .Route .COMPLEX 03/27/23 12/28/24 History acetaminophen 325 mg tablet 975 mg (3 x 325 mg) PO TID #60 tabs 03/29/23 09/04/24 Rx nystatin 100,000 unit/gram topical 1 applic topical BID #45 grams 03/29/23 12/28/24 Rx powder (Nystop) ospemifene 60 mg tablet (Osphena) 60 mg PO DAILY #90 tabs 03/15/24 09/04/24 Rx alendronate 70 mg tablet 70 mg PO WEEKLY 06/02/24 12/28/24 History furosemide 40 mg tablet 40 mg PO DAILY 06/02/24 09/04/24 History levothyroxine 125 mcg tablet 125 mcg PO DAILY 06/02/24 12/28/24 History metoprolol succinate 25 mg 12.5 mg PO BID 06/02/24 12/28/24 History tablet,extended release 24 hr oxybutynin chloride 5 mg tablet 5 mg PO BID 06/02/24 12/28/24 History pantoprazole 40 mg tablet,delayed 40 mg PO DAILY 06/02/24 12/28/24 History release sertraline 50 mg tablet 50 mg PO DAILY 06/02/24 12/28/24 History acetaminophen 325 mg tablet 650 mg (2 x 325 mg) PO Q6H PRN 09/13/24 12/28/24 Rx Fever/Mild Pain (1-3) #30 tabs lidocaine 5 % topical patch 1 patch topical BEDTIME #15 ea 09/13/24 Rx potassium chloride 20 mEq 20 meq PO DAILYCC #30 tabs 09/13/24 Rx tablet,extended release(part/cryst) (Klor-Con M) albuterol sulfate 90 mcg/actuation 2 puff inhalation PRN Shortness Of 12/28/24 History aerosol inhaler Breath Or Wheezing Allergies Allergy/AdvReac Type Severity Reaction Status Date / Time vibegron AdvReac Intermediate Rash Verified 12/28/24 16:51 Review of Systems Constitutional Comments: w/o fever, chills, swats Cardiovascular Comments: w/o chest pain she has Rt breast and Rt chest wall palpatory tenderness but not chest pain Respiratory Comments: short of breath Genitourinary Comments: longstanding incontinence Neurologic Comments: Rt arm weak from prior stroke Poor balance - using walker or wheelchair Hematologic/Lymphatic Comments: Rt breast bruising Exam Vital Signs (past 8 hours): - 12/28/24 16:59 12/28/24 17:00 12/28/24 17:30 Temperature 98 F Pulse Rate 80 76 79 Respiratory Rate 30 H Blood Pressure 111/52 L 99/48 L 100/65 Pulse Oximetry 97 99 96 Oxygen Delivery Method Room Air Room Air Room Air 12/28/24 18:00 12/28/24 19:36 12/28/24 20:05 Temperature Pulse Rate 80 82 82 Respiratory Rate 14 20 Blood Pressure 111/70 109/53 L Pulse Oximetry 97 94 94 Oxygen Delivery Method Room Air Oxygen Delivery Method Room Air Const Other: In no distress HENMT Other: atraumatic Resp Other: rhonchi Cardio Other: RRR Extrem Other: trace bipedal edema Psych Other: lucid, flat affect Objective ECG Impression: NSR 77 Imaging Chest x-ray: Radiologist's impression: 1. Small left pleural effusion with interstitial lung disease. 2. Moderate hiatal hernia. Labs 12/28/24 16:45 12/28/24 18:45 Labs: Laboratory Results - last 24 hr 12/28/24 12/28/24 16:45 18:45 WBC 7.1 RBC 4.11 Hgb 11.9 L Hct 36.3 MCV 88.3 MCH 28.8 MCHC 32.7 RDW 16.3 H Plt Count 192 Neut % (Auto) 60.8 Lymph % (Auto) 28.2 [place] % (Auto) 7.9 Eos % (Auto) 3.0 Baso % (Auto) 0.1 Neut # (Auto) 4300 Lymph # (Auto) 2000 [place] # (Auto) 600 Eos # (Auto) 200 Baso # (Auto) 0 PT 10.9 INR 1.0 APTT 33 Sodium 137 135 L Potassium 6.0 H 5.8 H Chloride 102 102 Carbon Dioxide 24 24 BUN 52 H 53 H Creatinine 2.54 H 2.73 H Estimated GFR 18 L 16 L BUN/Creatinine Ratio 20.5 19.4 Glucose 126 H 168 H Calcium 9.3 8.9 Magnesium 2.0 Total Bilirubin 0.5 AST 29 ALT 15 Alkaline Phosphatase 75 Total Creatine Kinase 219 H Troponin I < 0.012 < 0.012 NT-Pro-B Natriuret Pep 2420 H Total Protein 8.8 H Albumin 4.5 Globulin 4.3 H Albumin/Globulin Ratio 1.0 Lipase 70 Assessment & Plan Assessment and plan (1) Acute on chronic heart failure with preserved ejection fraction (HFpEF): Status: Acute (2) JAGDEEP (acute kidney injury): Status: Acute (3) Hyperkalemia: Status: Acute (4) CKD (chronic kidney disease) stage 4, GFR 15-29 ml/min: Status: Acute (5) Severe aortic stenosis: Status: Acute (6) Contusion of right breast: Status: Acute (7) Lumbar spinal stenosis: Status: Acute (8) Stenosis of right carotid artery greater than 50%: Status: Acute (9) Hyperlipidemia: Status: Acute (10) 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: Status: Acute Assessment & Plan narrative: HFpEF - apparently on Lasix 40 mg daily at home - she has assistance with medications - had 80 of Lasix iv in ER, continue with 40 mg po bid - careful monitoring of renal function and vitals with underlying CKD and severe JAGDEEP / CKD / Hyperkalemia - monitored renal function - BMP at midnight and in AM - held home KCl 20 mEq daily - severe on last echocardiogram - w/o angina - echo pending Hx of ischemic Rt MCA CVA / Rt ICA stenosis / Lt hemiparesis - Plavix, statin LS Stenosis - chronic LBP, occasionally radiates to Rt leg Rt breast Contusion - fall weeks ago, still with hematoma b/o Plavix likely Impaired mobility, balance, endurance - PT, OT eval Hypothyroidism - levothyroxine Urinary incontinence - oxybutinine GERD / Hiatal Hernia - PPI Depression - Zoloft DVT prophylaxis - heparin Time-Based Coding :: [TOTAL MINUTES] spent with patient and on the chart (including review of chart, obtaining history, exam, reviewing outside data, placing orders, documenting exam and treatment plan, and counseling patient) on [DATE].
[2024-12-28] MEDS: SODIUM CHLORIDE 0.9% FLUSH 10 ML IV (20:47)
[2024-12-28] MEDS: HEPARIN 5,000 UNIT/ML VIAL 5000 UNIT SUBCUT (20:48)
[2024-12-29 00:38] VITALS: BP 92/40; PULSE 73; RESP 16; TEMP 36.2; O2SAT 95
--- NOTE | 2024-12-29 00:39 | DI.ECHO.S_ITS ---
[facility] : : [address] : [place] : : [id number] : : Phone: [phone] Echocardiogram Report + :Name: ANITA FRANKLIN Study Date: 12/29/2024 Height: 63 in : :[facility] ReadingLocation: Weight: 206 lb : : Gender: Female BSA: 2.0 m2 : :: 1935 Age: 89 yrs BP: 101/66 mmHg: :Reason For Study: CONGESTIVE HEART FAILURE : :Ordering Physician: PÉREZ : :BILL AZUL Performed By: Sanjay Quintana : :Referring: BILL SIFUENTES : + Interpretation Summary Severe aortic stenosis. Normal LV size. Mildly reduced LV systolic function. LVEF is 45-50% Mild-moderate Mitral stenosis associated with mild to moderate mitral regurgitaiton. Other findings as below. When compared to TTE dated 12/20/22, aortic stenosis has progressed and LV is now starting to fail. Procedure: A two-dimensional transthoracic echocardiogram with color flow and Doppler was performed. The study quality was technically adequate. Comparison is made with the echocardiogram of 12/20/2022. The patient was in normal sinus rhythm during the exam. Left Ventricle: The left ventricle is normal in size. Left ventricular wall thickness is mildly increased. There is no ventricular septal defect visualized. The ejection fraction is estimated to be 45-50%. There is mild global hypokinesis of the left ventricle. Right Ventricle: The right ventricle is normal in size and function. Atria: The left atrium is severely dilated. Right atrial size is normal. The interatrial septum grossly appears intact with no obvious evidence for an atrial septal defect. Mitral Valve: There is moderate mitral annular calcification. The mitral valve leaflets are moderately calcified. There is moderate mitral stenosis. The mitral valve mean gradient is 3.3 mmHg. There is mild to moderate mitral regurgitation. Aortic Valve: The aortic valve is severely calcified. There is severe aortic stenosis. The peak aortic velocity is 4.17 m/sec. The aortic valve mean gradient is 44 mmHg. The calculated aortic valve area is 0.4 cm2. There is trace aortic regurgitation. Tricuspid Valve: The tricuspid valve leaflets are thin and pliable. There is moderate tricuspid regurgitation. Pulmonic Valve: The pulmonic valve leaflets are thin and pliable; valve motion is normal. There is no pulmonic valvular regurgitation. Great Vessels: The aortic root is normal size. The dimensions of the ascending aorta are normal. The pulmonary artery is normal size. The inferior vena cava was not visualized. Pericardium/ Pleura There is no pericardial effusion. MMode/2D Measurements & Calculations LVIDd: 3.6 cm LVOT diam: 1.8 cm LVIDs: 2.8 cm Ao root diam: 3.0 cm FS: 22.6 % asc Aorta Diam: 3.2 cm EPSS: 0.94 cm IVSd: 1.1 cm LVPWd: 1.1 cm LV diaz. diameter/BSA (cm/m^2): 1.8 LV sys. diameter/BSA (cm/m^2): 1.4 LA A2 area: 19.2 cm2 RA long axis: 4.2 cm LA A4 area: 24.0 cm2 RA area: 11.1 cm2 LA length (vol): 6.2 cm RA vol: 25.3 ml LA vol: 62.5 ml RA : 12.9 ml/m2 LA vol index: 31.9 ml/m2 RVD1 (basal): 3.3 cm RVD2 (mid): 2.5 cm TAPSE: 2.1 cm Doppler Measurements & Calculations Ao V2 max: 416.5 cm/sec LVOT Max Momo: 68.9 cm/sec Ao V2 mean: 313.3 cm/sec LV V1 max P.9 mmHg Ao max P.4 mmHg LV V1 VTI: 20.3 cm Ao mean P.1 mmHg ROBERT(I,D): 0.38 cm2 Ao V2 VTI: 130.0 cm ROBERT(V,D): 0.40 cm2 sev ratio: 0.16 ROBERT indexed to BSA (cm^2/m^2): 0.19 MV E max momo: 138.5 cm/sec TR max momo: 387.6 cm/sec MV A max momo: 94.2 cm/sec TR max P.1 mmHg MV E/A: 1.5 PA V2 max: 60.0 cm/sec Med Peak E' Momo: 3.8 cm/sec PA V2 mean: 41.6 cm/sec E/E' med: 36.1 PA mean P.76 mmHg Lat Peak E' Momo: 5.9 cm/sec PA pr(Accel): 37.9 mmHg E/E' lat: 23.4 E/e' average: 29.8 MV dec time: 0.18 sec MVA(VTI): 1.1 cm2 MV V2 mean: 82.2 cm/sec SV(LVOT): 49.2 ml MV mean P.3 mmHg MV V2 VTI: 44.1 cm Reading Physician:10:00 AM
[2024-12-29 02:25] VITALS: BP 100/44
[2024-12-29 03:34] VITALS: BP 109/49
[2024-12-29 05:11] LABS: Add Manual Diff / Slide Review NO; Basophils Absolute Auto 0 /uL (0-100); Basophils Percent Auto 0.3 % (0-2); Eosinophils Absolute Auto 100 /uL (0-450); Hematocrit 29.1 % (36-46); Hemoglobin 9.6 g/dL (12.0-16.0); Lymphocytes Absolute Auto 1800 /uL (1100-4500); Lymphocytes Percent Auto 24.1 % (25-40); Mean Corpuscular HGB Conc 33.2 % (30-36); Mean Corpuscular Hemoglobin 29.1 PG (26-34); Mean Corpuscular Volume 87.7 fL (80-100); Monocytes Absolute Auto 600 /uL (0-900); Monocytes Percent Auto 8.8 % (3-14); Neutrophils Absolute Auto 4700 /uL (1500-7000); Neutrophils Percent Auto 64.8 % (50-75); Platelet Count 151 X10^3/uL (150-400); Red Blood Cell Count 3.32 X10^6/uL (4.0-5.2); Red Cell Distribution Width 16.1 % (11.6-14.8); White Blood Cell Count 7.3 X10^3/uL (4.5-11.0)
[2024-12-29 05:29] LABS: BUN Creatinine Ratio 19.8 (6-22); Blood Urea Nitrogen 55 mg/dL (7-17); Calcium 8.5 mg/dL (8.4-10.2); Carbon Dioxide 22 mmol/L (22-32); Chloride 104 mmol/L (98-107); Estimated Glomerular Filt Rate 16 mL/min (>60); Glucose 97 mg/dL (80-110); HEMOLYSIS < 15 (0-50); Magnesium 1.9 mg/dL (1.6-2.3); Sodium 134 mmol/L (137-145)
[2024-12-29 05:34] LABS: Potassium 5.4 mmol/L (3.4-5.1)
[2024-12-29 05:37] LABS: NT-proBNP (BNP-Adult 18+) 2860 pg/mL (<450)
--- NOTE | 2024-12-29 06:28 | PC.ADMIT ---
[email or web address] Admission Note: The patient,Michela Cao,89 y/o, was given written information regarding hospital policies, unit procedures and contact persons. Patient's smoking status: Former smoker. Vital Signs - 8 hr 12/29/24 00:38 12/29/24 02:25 12/29/24 03:34 Temperature 97.1 F L Pulse Rate 73 Respiratory Rate 16 Blood Pressure 92/40 L 100/44 L 109/49 L Pulse Oximetry 95 Patient admitted to AC room 222 at 2014. A/Ox4, [place] and little forgetful. Transferred from stretcher to bed with walker and 2 person SBA, mild shortness of breath, RA 96%. SR with 1st degree AVB on Telemetry. Patient dribbled urine during transfer, then Purewick placed, UOP ~ 50ml. Denied pain, went to sleep after speaking with night Hospitalist and having a snack. See admit assessment also.
[2024-12-29 07:00] VITALS: BP 101/66; PULSE 73; RESP 20; O2SAT 95
[2024-12-29] MEDS: FUROSEMIDE 40 MG TABLET PO (08:32)
[2024-12-29] MEDS: LEVOTHYROXINE 125 MCG TABLET PO (08:32)
[2024-12-29] MEDS: CLOPIDOGREL 75 MG TABLET PO (08:32)
[2024-12-29] MEDS: OXYBUTYNIN 5 MG TABLET PO (08:32)
[2024-12-29] MEDS: SERTRALINE 50 MG TABLET PO (08:32)
[2024-12-29] MEDS: HEPARIN 5,000 UNIT/ML VIAL 5000 UNIT SUBCUT (08:33)
[2024-12-29] MEDS: GABAPENTIN 300 MG CAPSULE PO ×2 (08:33→12:53)
[2024-12-29] MEDS: PANTOPRAZOLE DR 40 MG TABLET PO (08:33)
[2024-12-29] MEDS: SODIUM CHLORIDE 0.9% FLUSH 10 ML IV (08:35)
[2024-12-29] MEDS: ACETAMINOPHEN 325 MG TABLET 650 MG PO (08:48)
--- NOTE | 2024-12-29 10:10 | PT.IIE ---
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) Hyperlipidemia, unspecified (12/28/24) Hyperkalemia (12/28/24) Nonrheumatic aortic (valve) stenosis (12/28/24) Acute on chronic diastolic (congestive) heart failure (12/28/24) Occlusion and stenosis of right carotid artery (12/28/24) Spinal stenosis, lumbar region without neurogenic claudication (12/28/24) Acute kidney failure, unspecified (12/28/24) Chronic kidney disease, stage 4 (severe) (12/28/24) Contusion of right breast, initial encounter (12/28/24) Surgical History (Last Reviewed 12/29/24 @ 00:15 by Tyler Ovalles MD) History of bilateral breast reduction surgery History of cataract extraction with lens replacement History of cholecystectomy History of hysterectomy Medical History (Last Updated 12/29/24 @ 00:23 by Tyler Ovalles MD) Chronic sciatica of right side CVA (cerebral vascular accident) Degenerative disc disease Essential hypertension Functional incontinence History of CVA (cerebrovascular accident) History of non-ST elevation myocardial infarction (NSTEMI) Hyperlipidemia 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 Lumbar spinal stenosis Osteopenia Osteopenia Postmenopausal atrophic vaginitis Severe aortic stenosis Stenosis of right carotid artery greater than 50% Urge incontinence Physical Therapy Inpatient Evaluation/Re-Eval M1 PT/OT-IP Prior Functional Status Start: 12/29/24 12:44 Freq: NEEDED Status: Active Protocol: Document 12/29/24 10:10 AB (Rec: 12/29/24 12:54 AB [id number]) Medical Review Prior Functional Status Medical History Reviewed Yes Communication able to make needs known; with confusion Mobility and Gait pt has memory issues and not clear with PLOF; stated that she has not been walking at [facility] and spends most of her day sitting on her lift chair; stated that staff assists her when she calls for help Social History Household Members none Living Arrangements Assisted Living Number of Stairs To Enter/Railing? pt lives at [facility] Home Environment Standard Height Toilet,Walk in Shower,Built-In Shower Seat Home Equipment Front Wheel Walker,Manual Wheelchair,Hand Held Shower, Grab Bars In Shower M2 PT-IP Current Condition Start: 12/29/24 12:44 Freq: NEEDED Status: Active Protocol: Document 12/29/24 10:10 AB (Rec: 12/29/24 12:54 AB [id number]) Physical Therapy Current Condition Current Condition Evaluation Date 12/29/24 Treatment Diagnosis CHF exacerbation; difficulty in walking Onset Date 12/28/24 M3 PT-IP Subjective Start: 12/29/24 12:44 Freq: NEEDED Status: Active Protocol: Document 12/29/24 10:10 AB (Rec: 12/29/24 12:54 AB [id number]) Subjective Physical Therapy Visit Type Type Initial Evaluation Visit Start Time 10:10 Visit Stop Time 11:30 Notes pt seen for split visits: 1010 to 1015 and 1100 to 1130am Number of CONTACT CENTRE SUPERVISOR Visits 0 Physical Therapy Visit Comments Patient Comments agreeable to get up M4 PT-IP Mobility and Gait Start: 12/29/24 12:44 Freq: NEEDED Status: Active Protocol: Document 12/29/24 10:10 AB (Rec: 12/29/24 12:54 AB [id number]) PT-Bed Mobility Assessment Supine to Sit Supine to Sit Maximum Assistance,Head of Bed Elevated,Bedrails PT-Transfer Assessment Sit to and From Stand Sit to and from Stand Maximum Assistance,1 Person Assistance,Use of Upper Extremities Equipment Transfer Assistive Device Gait Belt,Front Wheeled Walker Orthotic/Prosthetic Devices or Brace: No Transfers Transfer Destination Chair Transfer Technique Stand Step Pivot Transfer Ability Level of Assist Maximum Assistance,1 Person Assistance,Use of Upper Extremities Comments Mobility Comments pt in bed and agreeable to do PT. obtained PLOF and home set up. setup chair for pt to transfer. FELLED SEAM OPERATOR CHAINSTITCH came in and needed to see pt. checked back on pt after FELLED SEAM OPERATOR CHAINSTITCH. BP checked: 75/40. nurse aware. completed supine to sit max A x 1 and max cues. increase posterior trunk LOB and cued to correct. BP rechecked in sittin/49. pt completed sit to stand from EOB x 2 attempts max A and max cues. pt with contracture /weakness on LUE and unable to use. step transfer to chair using fWW holding with just RUE max A and max cues. positioned pt on the chair. call light and table placed within reach. BP checked: 92/ 44. O2 satP 94-96%. PT-Balance Assessment Sitting Balance and Reactions Static Sitting Balance Ability Fair Dynamic Sitting Balance Ability Poor Standing Balance and Reactions Static Standing Balance Ability Poor Dynamic Standing Balance Ability Poor Device Used FWW M5 PT-IP Objective Assessments Start: 12/29/24 12:44 Freq: NEEDED Status: Active Protocol: Document 12/29/24 10:10 AB (Rec: 12/29/24 12:54 AB [id number]) Orientation Orientation/Cognition Level of Alertness Confusional State Orientation Name,Situation Language Function Ability Hard of Hearing Safety Awareness Decreased Safety Awareness Memory Description Short Term Impaired,Special Deputy Sheriff Impaired Comments decrease vision due to macular degeneration Gross Range of Motion Lower Extremity ROM Assessment Within Functional Limits Strength Lower Extremity Strength Assessment Bilaterally Impaired Hip 3+/5 Knee 4-/5 M6 PT-IP Treatment Start: 12/29/24 12:44 Freq: NEEDED Status: Active Protocol: Document 12/29/24 10:10 AB (Rec: 12/29/24 12:54 AB [id number]) Physical Therapy Treatment Education Education Provided Safety M7 PT-IP Assessment and Plan Start: 12/29/24 12:44 Freq: NEEDED Status: Active Protocol: Document 12/29/24 10:10 AB (Rec: 12/29/24 12:54 AB [id number]) PT Summary Assessment and Plan Potential Rehabilitation Potential Fair Status of Condition at Evaluation Evolving Summary Impairments Pain,ROM,Strength,Balance, Coordination,Sensation,Tone, Cognition,Bed Mobility, Transfers,Gait,Activity Tolerance Assessment Summary pt is an 89 y/o F who is admitted for CHF exacerbation adn JAGDEEP. pt requiring max A and max cues for transfers using fWW. pt lives at [facility] and may go back to [facility] if able to provide necessary level of assistance to pt. pt will benefit from HHPT. Goals Bed Mobility Goal Standby Assistance Transfer Goal Standby Assistance,Front Wheeled Walker Gait Goal Standby Assistance,Front Wheel Walker Gait Distance 30 Days to Meet Goals 10 Frequency of Treatment Frequency Of Treatment Once a Day Treatment Plan Physical Therapy Treatment Plan Bed Mobility Training,Transfer Training,Gait Training, Therapeutic Exercise,Balance Retraining,Discharge Planning, Hot or Cold Pack,Neuromuscular Re-ed,Coordination Retraining ,Manual Therapy Precautions Other Precautions falls, BP Recommendations To Nursing Amount of Assist Needed 2 Person Assist Discharge Recommendations PT Discharge Recommendations Home with 17/05 Assist Available,Home Health Transportation Needs at Discharge Wheelchair/Cabulance - PT assist max A
--- NOTE | 2024-12-29 10:52 | CM.DANOTE ---
DCP Assessment Note: Pt is a 89yo female, resident of [facility] in [place], is admitted for GLF and JAGDEEP. Pt's Primary Care Provider is Dr. Idalia Bashir and [facility] Reviewed chart and discussed with multidisciplinary team pt's medical status and initial discharge needs. DCP met w/patient at bedside; introduced self and role. Patient was found in bed, alert and oriented, cooperative with assessment. Pt confirmed living situation at [facility], states her POA lives in [facility]. Pt expressed preference in discharge home when cleared. Pt has a hx of [facility]. PT/OT orders placed, pending assessment. DCP inquired with [facility] if pt re-started services after SNF admission in 08/2024, pending response. DCP called [facility], attempting coordination of transport with [facility]. Plan: Discharge order placed on 12/29/24, anticipating transport by [facility]. CM team will follow closely for coordination of discharge plans. FLEX Delatorre Discharge Planning/Care Management CM Discharge Assessment Start: 12/29/24 10:47 Freq: Status: Active Protocol: Document 12/29/24 10:48 MW (Rec: 12/29/24 10:52 MW [id number]) Discharge Planning Assessment Assigned Reporting Lead ASH Rios DPOA/Assigned Designee Name Michela Rivas, Friend (Jeremiah Bean) Advance Directives? Yes: POLST Advance Directives on File No History Provided By Patient,Medical Record Has Patient been admitted in last 30 No days? Prior Living Arrangements Assisted Living Comment [facility] Household Members none Type of transporation used prior to Relies on Others admit Facility Name Admitted From: [facility] Living Willing to Return to Facility? Yes Independent with ADL's Yes Is patient alert and oriented? Yes Needs Assistance With Bathing,Grooming,Meal Prep, Managing Medications,Home Chores / Shopping Caregiver for Another No Comment 4WW, adjustable bed Patient/Family Preference Intermediate Facility,Home with Home Health Comment Lives alone, does not have local family, only has [facility] 3 times a week. Discharge Plan Assisted Living Facility Transportation Arrangement Facility transport Referrals Initiated None needed If patient plan is home with home health No : Has signed face to face form been completed? If patient plan is SNF: Has PASSR been No completed? Review Status In Process Please Provide Date Initial DC 12/29/24 Assessment Was Performed Next Review Type Continued Stay Review
[2024-12-29 11:16] VITALS: BP 91/49
--- NOTE | 2024-12-29 11:38 | OT.IPNOTE ---
Pt being discharged back to her [facility], discharge OT eval orders. Pt may benefit from possibly HH.
--- NOTE | 2024-12-29 12:27 | CM.SWNOTE ---
DCP Note: 1100 and 1215: NATURAL RESOURCE SPECIALIST called [facility] Spragger (ph# [phone]) and left a voice message. 1125: NATURAL RESOURCE SPECIALIST called [facility] Coordinator (ph# [phone]) and left a voice message. Plan: Pending coordination with [facility] vs. pt friends for transport home. Blanca Wheat, WOOD ROOM SUPERVISOR
--- NOTE | 2024-12-29 12:58 | PM.DS.IH.1 ---
History of Present Illness History of Present Illness Date Patient Seen: 12/29/24 Time Patient Seen: 08:30 Date of Onset of Symptoms: 12/28/24 Chief complaint: CP, hypotension Narrative: 89 y/o resident of [facility] with PMH of severe , HTN, CKD, HFpEF, CVA with resultant Lt hemiparesis, impaired gait and balance and recurrent falls, presented to ED with worsening dyspnea. She had several vists to ED and floor over the past few years, related often to injury falls. Last year she fractured several Rt ribs, a month ago injured Rt breast with still present hematoma and Rt chest wall tenderness. In the ED with evidence of congestion, small pleural effusions, hyperkalemic with JAGDEEP, treated with Lokelma, Glc+insulin and 80 mg of Lasix IV. Placed in observation for JAGDEEP and CHF exacerbation Discharge Providers Provider Date of admission: 12/28/24 19:30 Discharge Date: 12/29/24 Primary care physician: Idalia Bashir MD Consults: 12/28/24 20:48 Consult to Speech Therapy Evaluate & Treat Comment: Physician Instructions: Evaluate and treat 12/29/24 00:34 Consult to Occupational Therapy Evaluate & Treat Comment: Physician Instructions: Evaluate and treat Consult to Physical Therapy Evaluate & Treat Comment: Physician Instructions: Evaluate and Treat Discharge provider: Simon Myers MD Summary Hospital Course Discharge Diagnosis: (1) Acute on chronic heart failure with preserved ejection fraction (HFpEF). (2) JAGDEEP (acute kidney injury). (3) Hyperkalemia. (4) CKD (chronic kidney disease) stage 4, GFR 15-29 ml/min. (5) Severe aortic stenosis. (6) Contusion of right breast. (7) Lumbar spinal stenosis. (8) Stenosis of right carotid artery greater than 50%. (9) Hyperlipidemia. 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 Hospital Course: Patient was admitted and administered IV furosemide, with inappropriate diuresis and subsequent significant improvement in shortness of breath and hyperkalemia, with sodium improved from 5.8-5.4. She was able to get up and walk without limitation, with normal oxygen saturation, and interested in discharge back to [facility] for outpatient follow-up. No other issues arose. Close outpatient follow-up with her primary care provider and Cardiology as advised to discuss surgical management of severe aortic stenosis. The patient acknowledged understanding, agreement and appreciation of this plan of care. Status at Discharge Cognitive/behavioral status at discharge: oriented Functional status at discharge: independent ambulation Overall status at discharge: patient is back to baseline Time Spent with Patient Time spent: Less than 30 minutes Exam Vital Signs (past 8 hours): - 12/29/24 07:00 12/29/24 11:16 Pulse Rate 73 Respiratory Rate 20 Blood Pressure 101/66 91/49 L Pulse Oximetry 95 Oxygen Flow Rate 0 Oxygen Delivery Method Room Air Oxygen Flow Rate 0 Narrative Exam Narrative: NAD, fluent speech. Oriented to person only, confused about location and time. Lungs are clear, normal effort. Heart is regular, harsh systolic murmur at the left sternal border. This remains stable. Abdomen is soft, non distended. No leg edema. Objective Imaging Chest x-ray: Radiologist's impression: 1. Small left pleural effusion with interstitial lung disease. 2. Moderate hiatal hernia. Echo: Radiologist's impression: Severe aortic stenosis. Normal LV size. Mildly reduced LV systolic function. LVEF is 45-50% Mild-moderate Mitral stenosis associated with mild to moderate mitral regurgitaiton. Other findings as below. When compared to TTE dated 12/20/22, aortic stenosis has progressed and LV is now starting to fail. Labs 12/29/24 04:27 12/29/24 04:27 Labs: Laboratory Results - last 24 hr 12/28/24 12/28/24 12/29/24 16:45 18:45 04:27 WBC 7.1 7.3 RBC 4.11 3.32 L Hgb 11.9 L 9.6 L Hct 36.3 29.1 L MCV 88.3 87.7 MCH 28.8 29.1 MCHC 32.7 33.2 RDW 16.3 H 16.1 H Plt Count 192 151 Neut % (Auto) 60.8 64.8 Lymph % (Auto) 28.2 24.1 L [place] % (Auto) 7.9 8.8 Eos % (Auto) 3.0 2.0 Baso % (Auto) 0.1 0.3 Neut # (Auto) 4300 4700 Lymph # (Auto) 2000 1800 [place] # (Auto) 600 600 Eos # (Auto) 200 100 Baso # (Auto) 0 0 PT 10.9 INR 1.0 APTT 33 Sodium 137 135 L 134 L Potassium 6.0 H 5.8 H 5.4 H Chloride 102 102 104 Carbon Dioxide 24 24 22 BUN 52 H 53 H 55 H Creatinine 2.54 H 2.73 H 2.78 H Estimated GFR 18 L 16 L 16 L BUN/Creatinine Ratio 20.5 19.4 19.8 Glucose 126 H 168 H 97 Calcium 9.3 8.9 8.5 Magnesium 2.0 1.9 Total Bilirubin 0.5 AST 29 ALT 15 Alkaline Phosphatase 75 Total Creatine Kinase 219 H Troponin I < 0.012 < 0.012 NT-Pro-B Natriuret Pep 2420 H 2860 H Total Protein 8.8 H Albumin 4.5 Globulin 4.3 H Albumin/Globulin Ratio 1.0 Lipase 70 PFSH Medical History (Updated 12/29/24 @ 00:23 by Tyler Ovalles MD) Chronic sciatica of right side CVA (cerebral vascular accident) Degenerative disc disease Essential hypertension Functional incontinence History of CVA (cerebrovascular accident) History of non-ST elevation myocardial infarction (NSTEMI) Hyperlipidemia 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 Idalia Bashir Discharge orders & Medications Prescriptions: Continued sertraline 50 mg tablet 50 mg PO DAILY metoprolol succinate 25 mg tablet extended release 24 hr 12.5 mg PO BID levothyroxine 125 mcg tablet 125 mcg PO DAILY pantoprazole 40 mg tablet,delayed release (DR/EC) 40 mg PO DAILY alendronate 70 mg tablet 70 mg PO WEEKLY furosemide 40 mg tablet 40 mg PO DAILY oxybutynin chloride 5 mg tablet 5 mg PO BID rosuvastatin 40 mg tablet 40 mg PO BEDTIME clopidogrel 75 mg tablet 75 mg PO DAILY gabapentin 300 mg capsule See Rx Instructions .ROUTE .COMPLEX Rx Instructions: Take one 300 mg capsule in AM, Take one 300 mg capsule at Noon, Take two 300 mg capsules at HS acetaminophen 325 mg Tablet 975 mg PO TID Qty: 60 0RF nystatin [Nystop] 100,000 unit/gram Powder 1 applic topical BID Qty: 45 0RF lidocaine 5 % Adhesive Patch,Medicated 1 patch topical BEDTIME Qty: 15 0RF acetaminophen 325 mg Tablet 650 mg PO Q6H PRN (Reason: Fever/Mild Pain (1-3)) Qty: 30 0RF potassium chloride [Klor-Con M20] 20 mEq Tablet,Er Particles/Crystals 20 meq PO DAILYCC Qty: 30 0RF albuterol sulfate 90 mcg/actuation HFA aerosol inhaler 2 puff INHALATION PRN (Reason: Shortness Of Breath Or Wheezing) Patient Comments: [NO ORIGINAL SIG] Osphena 60 mg tablet 60 mg PO DAILY Qty: 90 3RF Rx Instructions: must administer with food, preferably a high-fat meal Follow up/Referrals: Idalia Bashir MD [Primary Care Provider] - Visit Report/Discharge Packet Stand Alone Forms: Patient Portal/API, Stroke Signs & Symptoms, Patient Portal/API/Survey Discharge Data Primary Care Provider: Idalia Bashir Attending Provider: Tyler Peña Admit Date/Time: 12/28/24 19:30 Quality MIPS - Admit I confirm the patient?s Advance Care Plan is present, Code status is documented, Surrogate decision maker is in patient?s record [If Yes, STOP here]: Yes MIPS - Meds 'Current medications' to include all prescriptions, [id number] products, herbals, cannabis/cannabidiol products, and vitamin/mineral/dietary (nutritional) supplements. I have utilized all available resources to obtain, update, or review the patient?s current medications. [If Yes, STOP here]: Yes MIPS - DC The patient has a history of heart transplant or Left Ventricular Assist Device (LVAD). If yes, STOP here.: No The patient has current or prior documentation of left ventricular ejection fraction (LVEF) less than or equal to 40%, or moderate or severely depressed left ventricular systolic function.: No A. The patient was prescribed or already taking an Angiotensin-Converting Enzyme (NILA) Inhibitor, or Angiotensin Receptor [place] (ARB).: No B. The patient was prescribed or already taking a beta-alka. [If Yes to Both A & B, STOP here]: Yes Patient not prescribed/taking NILA or ARB, no reason given.: No Patient not prescribed/taking beta-alka, no reason given.: No PROFEE Charge Codes Discharge inpatient/observation: [id number]
--- NOTE | 2024-12-29 13:13 | PC.NURSE ---
Pt agreeable to discharge back to assisted living facility. IV discontinued, telemetry removed. Education provided to pt on CHF, stroke s/s, follow up with assisted living facility provider. Pt transferred into personal wheelchair, wheeled by facility computer help desk representative and family members to facility vehicle at approximately 1315.
--- NOTE | 2024-12-29 15:47 | ST.IPCSEOM ---
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) Hyperlipidemia, unspecified (12/28/24) Hyperkalemia (12/28/24) Nonrheumatic aortic (valve) stenosis (12/28/24) Acute on chronic diastolic (congestive) heart failure (12/28/24) Occlusion and stenosis of right carotid artery (12/28/24) Spinal stenosis, lumbar region without neurogenic claudication (12/28/24) Acute kidney failure, unspecified (12/28/24) Chronic kidney disease, stage 4 (severe) (12/28/24) Contusion of right breast, initial encounter (12/28/24) Past Medical History (Last Updated 12/29/24 @ 00:23 by Tyler Ovalles MD) Chronic sciatica of right side (Medical) CVA (cerebral vascular accident) (Medical) Degenerative disc disease (Medical) Essential hypertension (Medical) Functional incontinence (Medical) History of CVA (cerebrovascular accident) (Medical) History of non-ST elevation myocardial infarction (NSTEMI) (Medical) Hyperlipidemia (Medical) 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 (Medical) Lumbar spinal stenosis (Medical) Osteopenia (Medical) Osteopenia (Medical) Postmenopausal atrophic vaginitis (Medical) Severe aortic stenosis (Medical) Stenosis of right carotid artery greater than 50% (Medical) Urge incontinence (Medical) Speech-Language Pathology Swallow Evaluation [employer] OFF[employer]ER Clinical Swallow Evaluation Start: 12/29/24 15:37 Freq: Status: Active Protocol: Document 12/29/24 15:37 GRIFFIN (Rec: 12/29/24 15:47 MA [id number]) Clinical Swallow Evaluation Session Time Visit Start Time 11:20 Visit Stop Time 11:45 Total Visit Minutes 25 Visit Information Visit Number [address] Malinda Ovalles Reason for Referral Dysphagia Setting Assessment Location Acute Care Visit Type Note Type Initial evaluation Patient Information Identification Type Name,Wristband History Per H&P: 89 y/o resident of [facility] with PMH of severe , HTN , CKD, HFpEF, CVA with resultant Lt hemiparesis, impaired gait and balance and recurrent falls, presented to ED with worsening dyspnea. She had several vists to ED and floor over the past few years, related often to injury falls . Last year she fractured several Rt ribs, a month ago injured Rt breast with still present hematoma and Rt chest wall tenderness. In the ED with evidence of congestion, small pleural effusions, hyperkalemic with JAGDEEP, treated with Lokelma, Glc +insulin and 80 mg of Lasix IV . 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 Subjective Observations Pt was alert and oriented and able to answer most questions, however mild confusion. She was sitting upright in bed. Pt oriented Ox3. Pt resides in [facility]. She reports she has difficulties swallowing pills at times and has to have them cut in half. Pt received OP ST for swallow difficulties in April 2024 and had a MBS completed on 05/03/24 with the following results: * Suspect age related esophageal dysmotility. In the lateral view, the esophagus was viewed indirectly. Residual contrast appeared to remain in the esophagus. A barium tablet with water was observed to clear residual and tablet to to the stomach. Pt reports she drinks a lot of diet sodas during the day. She also noted she watches tv during meals and will occasionally go out to eat with a friend. Pt reports that she tends to spew liquids from her mouth during meals. Given her consumption of carbonated beverages, she may be eating and drinking too quickly resulting in a build up of solid boluses (due to dysmotility) and then swallowing carbonation that cannot go past the bolus build up causing emesis. Additionally, by pt watching tv or talking with a friend during meals, she is distracted while eating. This tends to lead to eating/ drinking to quickly with the same outcome. Reported by Patient/Caregiver Pain/Discomfort No Other Symptoms Difficulty swallowing pills, Difficulty swallowing solids Current Diet Regular (IDDSI 7) Baseline Feeding Method Independent in self-feeding The IDDSI Framework Protocol: IDDSI.1 Objective Assessment Mental Status Alert,Responsive,Cooperative Comment Oral motor exam revealed lingual and labial strength and ROM WFL. Pt with natural dentition, good condition. Food and Liquid Trials Position During Assessment Upright (90 degrees) Liquids Trialed Thin (IDDSI 0) Solid Trials Soft & Bite-sized (IDDSI 6), Regular (IDDSI 7) Oral Impairment Within functional limits Oral Phase Comments Pt consumed 1 matti cracker and 1/2 a peanut butter and jelly sandwich with about 5- 6oz of thin water via straw. For solids, Pt took adequate bite size with good rate and mastication, minimal oral stasis. Pt observed to talk while eating and benefited from cues and education to not talk and eat at the same time to present swallow difficulties. For thin liquids Pt exhibietd adequate suction , good oral acceptance and containment. Pharyngeal Impairment Within functional limits Pharyngeal Phase Comments Pt exhibited no overt s/s of aspiration such as coughing or choking with all PO trials. Pt with clear vocal quality post swallows. Fatigue/Endurance Endurance WNL The IDDSI Framework Protocol: IDDSI.1 Findings Swallowing Function Within functional limits Severity of Swallow Impairment Within functional limits Prognosis Good Impact on Safety and Functioning No limitations Recommendations Instrumental Assessment No Swallowing Treatment No Recommended Solids Regular (IDDSI 7) Recommended Liquids Thin (IDDSI 0) Other Recommendations Pt with WFL swallow function. ST recommends regular solids and thin liquids with the below mentioned safe swallowing strategies in place . ST communicated recommendations with nurse and MD. Safety Precautions/Swallowing Reduce distractions,Remain Recommendations upright (90 degrees) during all oral intake,Needs verbal cues to use recommended strategies,Upright position at least 30 minutes after meals, Small bites and sips when eating,Slow rate; swallow between bites,Alternate liquids and solids Medication Recommendations As Tolerated Discharge Recommendations Home Education Patient/Caregiver Education Described results of evaluation,Patient expressed understanding of evaluation
== END 2024-12-29 13:15 | disposition home or self-care (01) ==
LOC: ED 19:30 → AC 19:30
PROVIDERS: Emergency Medicine; Admitting Provider Internal Medicine; Emergency Provider Emergency Medicine; Family Provider Internal Medicine; PCP Internal Medicine; Visit Provider Internal Medicine
DX: I13.0 Hypertensive heart and chronic kidney disease with heart failure and stage 1 through stage 4 chronic kidney disease, or unspecified chronic kidney disease (principal); N18.4 Chronic kidney disease, stage 4 (severe); I50.33 Acute on chronic diastolic (congestive) heart failure; N17.9 Acute kidney failure, unspecified; E87.5 Hyperkalemia; I35.0 Nonrheumatic aortic (valve) stenosis; I69.354 Hemiplegia and hemiparesis following cerebral infarction affecting left non-dominant side; M48.061 Spinal stenosis, lumbar region without neurogenic claudication; E06.3 Autoimmune thyroiditis; E78.5 Hyperlipidemia, unspecified; I65.21 Occlusion and stenosis of right carotid artery; Z91.81 History of falling; S20.01XA Contusion of right breast, initial encounter; Z79.01 Long term (current) use of anticoagulants; Z87.891 Personal history of nicotine dependence
CPT/HCPCS: 36415; 71045; 80048; 80053; 82550; 83690; 83735; 83880; 84484; 85025; 85610; 85730; 92610; 93005; 93306; 96365; 96372; 96375; 97162; 97530; 99284; 99291; G0378; J1644; J1940

== ENCOUNTER 2025-01-13 13:43 | Observation (INO) | payer MEDICARE, BC, SELFPAY ==
[2024-12-28 20:01] VITALS: BMI 36.6
[2025-01-13] VITALS (17 sets, daily range): BP systolic 112–154; BP diastolic 50–69; PULSE 54–80; RESP 16–32; TEMP 36.2–36.8; O2SAT 93–96; BMI 37.2; BMI 37.5
--- NOTE | 2025-01-13 14:03 | DI.RAD.S_ITS ---
PROCEDURE: XR CHEST 1V INDICATIONS: chest pain TECHNIQUE: One view of the chest was acquired. COMPARISON: [facility], CR, XR CHEST 1V, 12/28/2024, 16:58. [facility], CR, XR CHEST 1V, 12/14/2024, 5:09. [facility], CR, XR CHEST 1V, 09/04/2024, 14:04. [facility], CR, XR CHEST 1V, 04/08/2024, 12:41. FINDINGS: Surgical changes and devices: None. Lungs and pleura: Lingular atelectasis. Small left pleural effusion. Mild interval increase in bibasilar consolidation. No pneumothorax. Mediastinum: Aortic arch calcifications. Small hiatal hernia. Mediastinal contours otherwise appear normal. Heart size is normal. Bones and chest wall: No suspicious bony lesions. Overlying soft tissues appear unremarkable. IMPRESSION: Interval increase in mild bibasilar consolidations, which may represent pneumonia. Consider aspiration as a possible etiology. Dictated by: Yohan Juarez M.D. on 01/13/2025 at 13:49 Approved by: Yohan Juarez M.D. on 01/13/2025 at 13:51
--- NOTE | 2025-01-13 14:16 | EKG_ITS ---
[facility] [id number] [place] [id number] Test Date: 2025-01-13 Pat Name: Michela Cao Department: [facility] Room: Gender: Female Senior Engineering Specialist: : 1935 Requested By: Order Number: [id number] Reading MD: Marcus Buchanan MD Measurements Intervals [place] Rate: 74 P: MA: QRS: 20 QRSD: 84 T: 14 QT: 386 QTc: 428 Interpretive Statements Atrial flutter with mostly 4:1 conduction Electronically Signed On 01-14-2025 15:02:02 PDT by Marcus Buchanan MD
--- NOTE | 2025-01-13 14:17 | EKG_ITS ---
[facility] [facility] [id number] [place] [address] Test Date: 2025-01-13 Pat Name: Michela Cao Department: [facility] Room: 225 Gender: Female Aerial Photograph Interpreter: MACARENA : 1935 Requested By: Order Number: [id number] Reading MD: Marcus Buchanan MD Measurements Intervals [place] Rate: 73 P: HI: 202 QRS: 15 QRSD: 82 T: -13 QT: 388 QTc: 427 Interpretive Statements Sinus rhythm with premature supraventricular complexes Nonspecific ST abnormality Electronically Signed On 01-14-2025 15:02:17 PDT by Marcus Buchanan MD
[2025-01-13] MEDS: ASPIRIN 81 MG CHEW TAB 324 MG PO (14:23)
[2025-01-13 14:29] LABS: Prothrombin Time 11.7 SECONDS (9.4-12.5)
[2025-01-13 14:31] LABS: PTT Partial Thromboplastin Tim 34 SECONDS (25.1-36.5)
[2025-01-13 14:32] LABS: Alanine Aminotransferase 17 IU/L (<35); Albumin 4.1 g/dL (3.5-5.0); Albumin Globulin Ratio 1.1 (1.0-2.8); Alkaline Phosphatase 70 U/L (38-126); Aspartate Aminotransferase 27 IU/L (14-36); BUN Creatinine Ratio 14.5 (6-22); Bilirubin Total 0.7 mg/dL (0.2-1.3); Blood Urea Nitrogen 25 mg/dL (7-17); Calcium 9.7 mg/dL (8.4-10.2); Carbon Dioxide 23 mmol/L (22-32); Chloride 107 mmol/L (98-107); Creatine Kinase 207 U/L (30-135); Estimated Glomerular Filt Rate 28 mL/min (>60); Globulin 3.8 g/dL (1.7-4.1); Glucose 102 mg/dL (80-110); HEMOLYSIS < 15 (0-50); Lipase 36 U/L (23-300); Magnesium 1.8 mg/dL (1.6-2.3); Potassium 4.7 mmol/L (3.4-5.1); Sodium 139 mmol/L (137-145); Total Protein 7.9 g/dL (6.3-8.2)
[2025-01-13 14:33] LABS: Add Manual Diff / Slide Review NO; Basophils Absolute Auto 0 /uL (0-100); Basophils Percent Auto 0.6 % (0-2); Eosinophils Absolute Auto 200 /uL (0-450); Eosinophils Percent Auto 2.3 % (2-4); Hematocrit 32.4 % (36-46); Hemoglobin 10.7 g/dL (12.0-16.0); Lymphocytes Absolute Auto 1300 /uL (1100-4500); Lymphocytes Percent Auto 17.9 % (25-40); Mean Corpuscular HGB Conc 32.9 % (30-36); Mean Corpuscular Hemoglobin 29.1 PG (26-34); Mean Corpuscular Volume 88.3 fL (80-100); Monocytes Absolute Auto 600 /uL (0-900); Neutrophils Absolute Auto 4900 /uL (1500-7000); Neutrophils Percent Auto 70.2 % (50-75); Platelet Count 203 X10^3/uL (150-400); Red Blood Cell Count 3.67 X10^6/uL (4.0-5.2)
[2025-01-13 14:44] LABS: NT-proBNP (BNP-Adult 18+) 12600 pg/mL (<450); Troponin I 0.024 ng/mL (0.01-0.034)
--- NOTE | 2025-01-13 15:10 | ED_ITS ---
HPI - Chest Pain General Chief Complaint: Chest Pain Stated Complaint: can't breathe, full of fluid Time Seen by Provider: 01/13/25 15:07 Source: patient and family Mode of arrival: Wheelchair History of Present Illness HPI narrative: 89-year-old female with history of congestive heart failure, severe aortic stenosis, chronic kidney disease, prior stroke with resultant left hemiparesis upper greater than lower extremity, current resident of [facility], has one-week duration of cough with increasing shortness of breath. No fevers or chills. Shortness of breath worse over the last 3 days. Transferred here for further evaluation. Denies chest pain. Denies sensation of feverishness. Has swelling of both legs that is about the same. Related Data Home Medications Medication Instructions Recorded Confirmed clopidogrel 75 mg tablet 75 mg PO DAILY 03/27/23 01/13/25 gabapentin 300 mg capsule 300 mg PO BID 03/27/23 01/13/25 (Neurontin) alendronate 70 mg tablet 70 mg PO WEEKLY 06/02/24 01/13/25 levothyroxine 125 mcg tablet 125 mcg PO DAILY 06/02/24 01/13/25 metoprolol succinate 25 mg 12.5 mg PO BID 06/02/24 01/13/25 tablet,extended release 24 hr oxybutynin chloride 5 mg tablet 5 mg PO BID 06/02/24 01/13/25 pantoprazole 40 mg tablet,delayed 40 mg PO DAILY 06/02/24 01/13/25 release sertraline 50 mg tablet 50 mg PO DAILY 06/02/24 01/13/25 albuterol sulfate 90 mcg/actuation 2 puff inhalation Q4HR 12/28/24 01/13/25 aerosol inhaler gabapentin 100 mg capsule 600 mg PO BEDTIME 01/13/25 01/13/25 (Neurontin) hydrocodone 5 mg-acetaminophen 325 1 tab PO Q8HR PRN Severe Pain 01/13/25 01/13/25 mg tablet (Scale Score 7-10) lisinopril 10 mg tablet 10 mg PO DAILY 01/13/25 01/13/25 Previous Rx's Medication Instructions Recorded acetaminophen 325 mg tablet 650 mg (2 x 325 mg) PO Q6H PRN 09/13/24 Fever/Mild Pain (1-3) #30 tabs lidocaine 5 % topical patch 1 patch topical BEDTIME #15 ea 09/13/24 Allergies Allergy/AdvReac Type Severity Reaction Status Date / Time vibegron AdvReac Intermediate Rash Verified 01/13/25 13:57 Patient History Medical History Chronic sciatica of right side CVA (cerebral vascular accident) Degenerative disc disease Essential hypertension Functional incontinence History of CVA (cerebrovascular accident) History of non-ST elevation myocardial infarction (NSTEMI) Hyperlipidemia 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 Lumbar spinal stenosis Osteopenia Osteopenia Postmenopausal atrophic vaginitis Severe aortic stenosis Stenosis of right carotid artery greater than 50% Urge incontinence Surgical History History of bilateral breast reduction surgery History of cataract extraction with lens replacement History of cholecystectomy History of hysterectomy Family History Other Adopted (not a blood relative) Social History household members: none Smoking Status: Former smoker alcohol intake: current Smoking Status: Former smoker alcohol intake frequency: holidays/special occasions only Exam Narrative Exam Narrative: GENERAL: Well-developed patient, in mild distress. HEAD: Atraumatic. Normocephalic. EYES: Pupils equal round and reactive. Extraocular motions intact. No scleral icterus. No injection or drainage. ENT: Nose without bleeding, purulent drainage. Throat without erythema, tonsillar hypertrophy or exudate. Airway patent. NECK: Trachea midline. Non tender CARDIOVASCULAR: Regular rate and rhythm without murmurs, gallops, or rubs. RESPIRATORY: Bibasilar slight crackles, speaks just short of full sentence speech. I could not appreciate wheezes. No suprasternal or intercostal retractions. GASTROINTESTINAL: Abdomen soft, non-tender, nondistended. EXTREMITIES: Bilateral lower extremity edema, some erythema bilateral distal anterior forelegs, without weeping or ulcers, favor venous stasis changes BACK: Nontender without deformity or crepitance. No flank tenderness. NEURO: AOx3. Left upper extremity weakness with flexion contracture at the hand wrist area. SKIN: No rash or erythema of visible areas Initial Vital Signs Initial Vital Signs: Vital Signs Temperature 98.2 F 01/13/25 13:57 Pulse Rate 75 03/22/25 13:57 Respiratory Rate 32 H 01/13/25 13:57 Blood Pressure 115/57 L 01/13/25 13:57 Pulse Oximetry 96 01/13/25 13:57 Oxygen Delivery Method Room Air 01/13/25 13:57 Course Orders Ordered: ED Orders 01/13/25 14:03 XR chest 1V Stat EKG-12 Lead Stat 01/13/25 14:15 Complete Blood Count AUTO DIFF Stat Comprehensive Metabolic Panel Stat Lipase Stat Magnesium Stat NT-proBNP (BNP-Adult 18+) Stat PTT Partial Thromboplastin Du Stat Prothrombin Time INR Stat Troponin & CK Cardiac Panel Stat 01/13/25 16:10 Blood Culture Stat 01/13/25 16:20 Covid-19 + FLU A/B + RSV - PCR Stat Acetaminophen (Acetaminophen 325 Mg Tablet) 650 mg PO Q6H PRN PRN Reason: Fever/Mild Pain (1-3) Atorvastatin Calcium (Atorvastatin 20 Mg Tablet) 80 mg PO BEDTIME [facility] Last Admin: 01/13/25 20:17 Dose: 80 mg Documented By: MS Clopidogrel Bisulfate (Clopidogrel 75 Mg Tablet) 75 mg PO DAILY [facility] Furosemide (Furosemide 40 Mg/4 Ml Vial) 40 mg IV Q8H [facility] Last Admin: 01/13/25 16:42 Dose: Not Given Documented By: MLM Gabapentin (Gabapentin 300 Mg Capsule) 300 mg PO 0900,1200 [facility] Gabapentin (Gabapentin 300 Mg Capsule) 600 mg PO BEDTIME [facility] Last Admin: 01/13/25 20:17 Dose: 600 mg Documented By: MS Heparin Sodium (Porcine) (Heparin 5,000 Unit/Ml Vial) 5,000 unit SUBCUT BID [facility] Last Admin: 01/13/25 20:19 Dose: 5,000 unit Documented By: MS Piperacillin Sod/Tazobactam (Sod 3.375 gm/ Sodium Chloride) 100 mls @ 25 mls/hr IV Q8H [facility] Levothyroxine Sodium (Levothyroxine 125 Mcg Tablet) 125 mcg PO DAILY@0600 [facility] Lidocaine (Lidocaine 5% Patch) 1 each TOP BEDTIME [facility] Last Admin: 01/13/25 20:19 Dose: Not Given Documented By: MS Metoprolol Succinate (Metoprolol Er 25 Mg Tablet) 12.5 mg PO BID [facility] Last Admin: 01/13/25 20:18 Dose: 12.5 mg Documented By: MS Naloxone HCl (Naloxone 0.4 Mg/Ml Vial) 0.2 mg IV Q2MIN PRN PRN Reason: Opiate Reversal Nitroglycerin (Nitroglycerin 0.4 Mg Patch) 0.4 mg TOP 0700 [facility] Ondansetron HCl (Ondansetron 4 Mg/2 Ml Inj) 4 mg IV Q8HR PRN PRN Reason: Nausea And Vomiting Oxybutynin (Oxybutynin 5 Mg Tablet) 5 mg PO BID [facility] Last Admin: 01/13/25 20:18 Dose: 5 mg Documented By: Pantoprazole Sodium (Pantoprazole Dr 40 Mg Tablet) 40 mg PO DAILY [facility] Sertraline HCl (Sertraline 50 Mg Tablet) 50 mg PO DAILY [facility] Discontinued Medications Albuterol (Albuterol 2.5 Mg/3 Ml Neb (Adult)) 2.5 mg INH NOW ONE Stop: 01/13/25 15:33 Last Admin: 01/13/25 16:02 Dose: 2.5 mg Documented By: DEMETRIO Aspirin (Aspirin 81 Mg Chew Tab) 324 mg PO NOW ONE Stop: 01/13/25 14:04 Last Admin: 01/13/25 14:23 Dose: 324 mg Documented By: (2) Furosemide (Furosemide 40 Mg/4 Ml Vial) 40 mg IV NOW ONE Stop: 01/13/25 15:31 Last Admin: 01/13/25 16:35 Dose: 40 mg Documented By: LEORA Piperacillin Sod/Tazobactam (Sod 4.5 gm/ Sodium Chloride) 100 mls @ 200 mls/hr IV NOW ONE Stop: 01/13/25 15:32 Last Infusion: 01/13/25 16:48 Dose: Infused Documented By: Admin: 01/13/25 16:18 Dose: 200 mls/hr Documented By: LEORA Vital Signs Vital signs: Vital Signs - 8 hr 01/13/25 13:57 01/13/25 14:10 01/13/25 14:30 Temperature 98.2 F Pulse Rate 75 78 Respiratory Rate 32 H 26 H Blood Pressure 115/57 L 119/53 L 141/61 H Pulse Oximetry 96 93 Oxygen Delivery Method Room Air Room Air 01/13/25 14:30 01/13/25 15:00 01/13/25 15:01 Temperature Pulse Rate 75 64 Respiratory Rate 22 19 Blood Pressure 131/69 Pulse Oximetry 94 95 Oxygen Delivery Method 01/13/25 15:01 01/13/25 15:30 01/13/25 15:31 Temperature Pulse Rate 69 54 L Respiratory Rate 20 28 H Blood Pressure 112/56 L Pulse Oximetry 95 95 Oxygen Delivery Method 01/13/25 15:31 01/13/25 16:00 01/13/25 16:02 Temperature Pulse Rate 55 L 69 71 Respiratory Rate 28 H 18 18 Blood Pressure Pulse Oximetry 95 95 96 Oxygen Delivery Method Room Air MDM - Chest Pain Lab Data Attestation: I reviewed the patient's lab results. Lab results narrative: White blood cell count 7000, hemoglobin 10.7, platelets 203,000. BUN 25 with creatinine 1.72. Glucose 102. Serum CO2 23. Sodium 139 with potassium 4.7. Troponin measurable but low, CPK low. BNP 19180 elevated, elevated further than prior assays. 01/13/25 14:15 01/13/25 14:15 Labs: Lab Results 01/13/25 Range/Units 14:15 WBC 7.0 (4.5-11.0) X10^3/uL RBC 3.67 L (4.0-5.2) X10^6/uL Hgb 10.7 L (12.0-16.0) g/dL Hct 32.4 L (36-46) % MCV 88.3 (80-100) fL MCH 29.1 (26-34) PG MCHC 32.9 (30-36) % RDW 16.0 H (11.6-14.8) % Plt Count 203 (150-400) X10^3/uL Neut % (Auto) 70.2 (50-75) % Lymph % (Auto) 17.9 L (25-40) % [place] % (Auto) 9.0 (3-14) % Eos % (Auto) 2.3 (2-4) % Baso % (Auto) 0.6 (0-2) % Neut # (Auto) 4900 (9010-3347) /uL Lymph # (Auto) 1300 (4477-6613) /uL [place] # (Auto) 600 (0-900) /uL Eos # (Auto) 200 (0-450) /uL Baso # (Auto) 0 (0-100) /uL PT 11.7 (9.4-12.5) SECONDS INR 1.0 (0.9-1.3) APTT 34 (25.1-36.5) SECONDS Sodium 139 (137-145) mmol/L Potassium 4.7 (3.4-5.1) mmol/L Chloride 107 (98-107) mmol/L Carbon Dioxide 23 (22-32) mmol/L BUN 25 H (7-17) mg/dL Creatinine 1.72 H (0.52-1.04) mg/dL Estimated GFR 28 L (>60) mL/min BUN/Creatinine Ratio 14.5 (6-22) Glucose 102 (80-110) mg/dL Calcium 9.7 (8.4-10.2) mg/dL Magnesium 1.8 (1.6-2.3) mg/dL Total Bilirubin 0.7 (0.2-1.3) mg/dL AST 27 (14-36) IU/L ALT 17 (<35) IU/L Alkaline Phosphatase 70 (38-126) U/L Total Creatine Kinase 207 H (30-135) U/L Troponin I 0.024 (0.01-0.034) ng/mL NT-Pro-B Natriuret Pep 47441 H (<450) pg/mL Total Protein 7.9 (6.3-8.2) g/dL Albumin 4.1 (3.5-5.0) g/dL Globulin 3.8 (1.7-4.1) g/dL Albumin/Globulin Ratio 1.1 (1.0-2.8) Lipase 36 (23-300) U/L ECG Data Attestation: I personally reviewed and interpreted this ECG as follows: Interpretation: Accelerated junctional rhythm with rate of 74. No obvious ST segment elevation or depression changes. Significant artifact present. QRS 84, QTC 428. MDM Narrative Medical decision making narrative: 89-year-old female with history of CHF, group home resident, left-sided hemiparesis from old stroke, recent cough and shortness of breath. No oxygen requirement but speaking just short of full sentences, slight bibasilar crackles on examination, bilateral lower extremity edema with some erythema. No fever. EKG, labs, chest x-ray pending. EKG shows narrow complex rhythm, no obvious ST segment elevation or depression changes. BNP 23917 at markedly elevated, more than recent baseline. Troponin measurable but negative. BUN and creatinine elevated. We will give IV Lasix, topical nitroglycerin. Chest x-ray suspicious for bibasilar infiltrates, possible aspiration, see radiology report. Blood cultures requested, NKDA, IV Zosyn. Nebulized albuterol. Consider admission, patient and friend/advocate at bedside agree, did not feel comfortable out taking her back to the nursing facility at this time. We will consult hospitalist. 1600, case discussed with hospitalist Dr. Myers who accepts patient for admission to observation. Critical Care Time Critical Care Time Critical Care Time: Yes Total Critical Care Time: 35 Attestation: The high probability of a clinically significant, sudden or life threatening deterioration of the [cardiopulmonary] system(s) required my full and direct attention, intervention and personal management. The aggregate critical care time was [35] minutes. This time is in addition to time spent performing reported procedures but includes the following: [x] Data Review and interpretation [x] Patient assessment and monitoring of vital signs [x] Documentation [x] Medication orders and management Discharge Plan Departure Patient Disposition: Admitted as Observation Clinical Impression: Dyspnea, Congestive heart failure, Pneumonia, History of stroke Admit Date/Time: 01/13/25 16:02 Admit Provider: Simon Myers V
[2025-01-13] MEDS: ALBUTEROL 2.5 MG/3 ML NEB (ADULT) INH (16:02)
--- NOTE | 2025-01-13 16:05 | P.HP_ITS ---
History of Present Illness History of Present Illness Date Patient Seen: 01/13/25 Time Patient Seen: 16:15 Chief complaint: can't breathe, full of fluid Narrative: 89 y/o resident of [facility] with PMH of severe , HTN, CKD, HFpEF, CVA with resultant Lt hemiparesis, impaired gait and balance and recurrent falls, presented to ED with worsening dyspnea. She had several vists to ED and floor over the past few years, related often to injury falls. She was admitted earlier this month for a CHF exacerbation due to critical aortic stenosis. 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 In the ED with evidence of CHF, small pleural effusions, increased leg swelling, as well as possible pneumonia and lower extremity cellulitis. She was given furosemide 40mg IV and a dose of IV Zosyn and amitted for further management and evaluation. 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 Lumbar spinal stenosis Osteopenia Osteopenia Postmenopausal atrophic vaginitis Severe aortic stenosis Stenosis of right carotid artery greater than 50% Urge incontinence Surgical History History of bilateral breast reduction surgery History of cataract extraction with lens replacement History of cholecystectomy History of hysterectomy Family History Other Adopted (not a blood relative) Social History household members: none Smoking Status: Former smoker alcohol intake: current Meds Home Medications and Allergies Home Medications Medication Instructions Recorded Confirmed Type rosuvastatin 40 mg tablet 40 mg PO BEDTIME 05/24/19 09/04/24 History clopidogrel 75 mg tablet 75 mg PO DAILY 03/27/23 12/28/24 History gabapentin 300 mg capsule See Rx Instructions .Route .COMPLEX 03/27/23 12/28/24 History acetaminophen 325 mg tablet 975 mg (3 x 325 mg) PO TID #60 tabs 03/29/23 09/04/24 Rx nystatin 100,000 unit/gram topical 1 applic topical BID #45 grams 03/29/23 12/28/24 Rx powder (Nystop) ospemifene 60 mg tablet (Osphena) 60 mg PO DAILY #90 tabs 03/15/24 09/04/24 Rx alendronate 70 mg tablet 70 mg PO WEEKLY 06/02/24 12/28/24 History furosemide 40 mg tablet 40 mg PO DAILY 06/02/24 09/04/24 History levothyroxine 125 mcg tablet 125 mcg PO DAILY 06/02/24 12/28/24 History metoprolol succinate 25 mg 12.5 mg PO BID 06/02/24 12/28/24 History tablet,extended release 24 hr oxybutynin chloride 5 mg tablet 5 mg PO BID 06/02/24 12/28/24 History pantoprazole 40 mg tablet,delayed 40 mg PO DAILY 06/02/24 12/28/24 History release sertraline 50 mg tablet 50 mg PO DAILY 06/02/24 12/28/24 History acetaminophen 325 mg tablet 650 mg (2 x 325 mg) PO Q6H PRN 09/13/24 12/28/24 Rx Fever/Mild Pain (1-3) #30 tabs lidocaine 5 % topical patch 1 patch topical BEDTIME #15 ea 09/13/24 Rx potassium chloride 20 mEq 20 meq PO DAILYCC #30 tabs 09/13/24 Rx tablet,extended release(part/cryst) (Klor-Con M) albuterol sulfate 90 mcg/actuation 2 puff inhalation PRN Shortness Of 12/28/24 History aerosol inhaler Breath Or Wheezing Allergies Allergy/AdvReac Type Severity Reaction Status Date / Time vibegron AdvReac Intermediate Rash Verified 01/13/25 13:57 Review of Systems Review of Systems ROS: Yes All systems reviewed with the patient and are negative except as otherwise documented Exam Vital Signs (past 8 hours): - 01/13/25 13:57 01/13/25 14:10 Temperature 98.2 F Pulse Rate 75 78 Respiratory Rate 32 H 26 H Blood Pressure 115/57 L 119/53 L Pulse Oximetry 96 93 Oxygen Delivery Method Room Air Room Air Oxygen Delivery Method Room Air Narrative Exam Narrative: GENERAL: This is a well-nourished, well-developed patient, in no apparent distress. HEAD: Atraumatic. Normocephalic. No temporal or scalp tenderness. EYES: Pupils equal round and reactive. Extraocular motions intact. No scleral icterus. No injection or drainage. ENT: Mucous membranes pink and moist. NECK: Trachea midline. No JVD, bruits or lymphadenopathy. Supple, nontender, no meningeal signs. CARDIOVASCULAR: Regular rate and rhythm with grade 3/6 SNOW at RUSB. RESPIRATORY: Decreased breath sounds lower lung king with coarse crackles. GASTROINTESTINAL: Abdomen soft, non-tender, nondistended. EXTREMITIES: 1-2+ edema. BACK: Nontender without deformity or crepitance. No flank tenderness. NEUROLOGIC: Alert, oriented, speech fluent, full upper and lower motor strength, no focal deficits evident. DERMATOLOGIC: Erythema and induration and tenderness on the bilateral lower shins R>L Objective ECG Impression: Normal sinus rhythm at 74bpm, no ischemic changes. Imaging Echocardiogram 12/28/2024:: Radiologist's impression: Severe aortic stenosis. Normal LV size. Mildly reduced LV systolic function. LVEF is 45-50% Mild-moderate Mitral stenosis associated with mild to moderate mitral regurgitaiton. Other findings as below. When compared to TTE dated 12/20/22, aortic stenosis has progressed and LV is now starting to fail. Chest x-ray: Radiologist's impression: Interval increase in mild bibasilar consolidations, which may represent pneumonia. Consider aspiration as a possible etiology. Labs 01/13/25 14:15 01/13/25 14:15 Labs: Laboratory Results - last 24 hr 01/13/25 14:15 WBC 7.0 RBC 3.67 L Hgb 10.7 L Hct 32.4 L MCV 88.3 MCH 29.1 MCHC 32.9 RDW 16.0 H Plt Count 203 Neut % (Auto) 70.2 Lymph % (Auto) 17.9 L [place] % (Auto) 9.0 Eos % (Auto) 2.3 Baso % (Auto) 0.6 Neut # (Auto) 4900 Lymph # (Auto) 1300 [place] # (Auto) 600 Eos # (Auto) 200 Baso # (Auto) 0 PT 11.7 INR 1.0 APTT 34 Sodium 139 Potassium 4.7 Chloride 107 Carbon Dioxide 23 BUN 25 H Creatinine 1.72 H Estimated GFR 28 L BUN/Creatinine Ratio 14.5 Glucose 102 Calcium 9.7 Magnesium 1.8 Total Bilirubin 0.7 AST 27 ALT 17 Alkaline Phosphatase 70 Total Creatine Kinase 207 H Troponin I 0.024 NT-Pro-B Natriuret Pep 81230 H Total Protein 7.9 Albumin 4.1 Globulin 3.8 Albumin/Globulin Ratio 1.1 Lipase 36 Assessment & Plan Assessment & Plan narrative: (1) Acute on chronic heart failure with preserved ejection fraction (HFpEF) due to critical aortic stenosis. (2) Nosocomial pneumonia. (3) Bilateral lower extremity cellulitis. (4) CKD (chronic kidney disease) stage 4, GFR 15-29 ml/min. (5) Lumbar spinal stenosis. (6) Stenosis of right carotid artery greater than 50%. (7) Hyperlipidemia. 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 DVT prophylaxis: SQ heparin Code status: Do not resuscitate. We discussed her course and decision not to pursure TAVR. I could at any time she states. She is interested in hospice consultation after a discussion today. Plan: -admit to observation -diuresis with IV furosemide -IV Zosyn -follow cultures -consult hospice Quality MIPS - Admit I confirm the patient?s Advance Care Plan is present, Code status is documented, Surrogate decision maker is in patient?s record [If Yes, STOP here]: Yes [facility] - Meds 'Current medications' to include all prescriptions, [id number] products, herbals, cannabis/cannabidiol products, and vitamin/mineral/dietary (nutritional) supplements. I have utilized all available resources to obtain, update, or review the patient?s current medications. [If Yes, STOP here]: Yes [employer] Material Assistant Document charge(s): No Charge Codes Initial inpatient/observation care: 11124
[2025-01-13] MEDS: PIPERACILLIN/TAZO 4.5 GM in SODIUM CHLORIDE 0.9% 100 ML IV (16:18)
[2025-01-13] MEDS: FUROSEMIDE 40 MG/4 ML VIAL IV (16:35)
[2025-01-13 17:07] LABS: Influenza A - CEPHEID Flu A NEGATIVE (NEGATIVE); Influenza B - CEPHEID Flu B NEGATIVE (NEGATIVE); Respiratory Syncytial Virus Negative (Negative)
[2025-01-13 17:08] LABS: COVID-19 CEPHEID 4-PLEX PCR Negative (Negative)
[2025-01-13] MEDS: ATORVASTATIN 20 MG TABLET 80 MG PO (20:17)
[2025-01-13] MEDS: GABAPENTIN 300 MG CAPSULE 600 MG PO (20:17)
[2025-01-13] MEDS: OXYBUTYNIN 5 MG TABLET PO (20:18)
[2025-01-13] MEDS: METOPROLOL ER 25 MG TABLET 12.5 MG PO (20:18)
[2025-01-13] MEDS: HEPARIN 5,000 UNIT/ML VIAL 5000 UNIT SUBCUT (20:19)
[2025-01-13] MEDS: PIPERACILLIN/TAZO 3.375 GM in SODIUM CHLORIDE 0.9% 100 ML IV (21:42)
[2025-01-14] VITALS (12 sets, daily range): BP systolic 74–124; BP diastolic 38–62; PULSE 64–79; RESP 14–20; TEMP 35.7–36.6; O2SAT 91–98
[2025-01-14] MEDS: FUROSEMIDE 40 MG/4 ML VIAL IV ×2 (00:25→08:58)
[2025-01-14 05:29] LABS: Add Manual Diff / Slide Review NO; Basophils Absolute Auto 0 /uL (0-100); Basophils Percent Auto 0.2 % (0-2); Eosinophils Absolute Auto 200 /uL (0-450); Eosinophils Percent Auto 4.1 % (2-4); Hemoglobin 10.2 g/dL (12.0-16.0); Lymphocytes Absolute Auto 1400 /uL (1100-4500); Mean Corpuscular Hemoglobin 28.9 PG (26-34); Mean Corpuscular Volume 87.6 fL (80-100); Monocytes Absolute Auto 700 /uL (0-900); Monocytes Percent Auto 12.7 % (3-14); Neutrophils Absolute Auto 3500 /uL (1500-7000); Platelet Count 182 X10^3/uL (150-400); Red Blood Cell Count 3.54 X10^6/uL (4.0-5.2); Red Cell Distribution Width 15.9 % (11.6-14.8); White Blood Cell Count 5.9 X10^3/uL (4.5-11.0)
[2025-01-14] MEDS: PIPERACILLIN/TAZO 3.375 GM in SODIUM CHLORIDE 0.9% 100 ML IV ×3 (05:36→22:21)
[2025-01-14 05:47] LABS: Blood Urea Nitrogen 27 mg/dL (7-17); Calcium 9.3 mg/dL (8.4-10.2); Carbon Dioxide 25 mmol/L (22-32); Chloride 105 mmol/L (98-107); Estimated Glomerular Filt Rate 27 mL/min (>60); Glucose 97 mg/dL (80-110); HEMOLYSIS < 15 (0-50); Potassium 4.3 mmol/L (3.4-5.1); Sodium 139 mmol/L (137-145)
[2025-01-14] MEDS: LEVOTHYROXINE 125 MCG TABLET PO (06:34)
[2025-01-14] MEDS: NITROGLYCERIN 0.4 MG PATCH TOP (06:34)
[2025-01-14] MEDS: SERTRALINE 50 MG TABLET PO (08:57)
[2025-01-14] MEDS: METOPROLOL ER 25 MG TABLET 12.5 MG PO (08:57)
[2025-01-14] MEDS: OXYBUTYNIN 5 MG TABLET PO ×2 (08:58→20:44)
[2025-01-14] MEDS: CLOPIDOGREL 75 MG TABLET PO (08:58)
[2025-01-14] MEDS: HEPARIN 5,000 UNIT/ML VIAL 5000 UNIT SUBCUT ×2 (08:58→20:44)
[2025-01-14] MEDS: PANTOPRAZOLE DR 40 MG TABLET PO (08:58)
[2025-01-14] MEDS: GABAPENTIN 300 MG CAPSULE PO ×2 (09:05→14:09)
[2025-01-14] MEDS: SODIUM CHLORIDE 0.9% FLUSH 10 ML IV ×2 (09:15→20:46)
--- NOTE | 2025-01-14 10:40 | PM.DS.IH.1 ---
History of Present Illness History of Present Illness Date Patient Seen: 01/14/25 Time Patient Seen: 09:35 Chief complaint: can't breathe, full of fluid Narrative: 89 y/o resident of [facility] with PMH of severe , HTN, CKD, HFpEF, CVA with resultant Lt hemiparesis, impaired gait and balance and recurrent falls, presented to ED with worsening dyspnea. She had several vists to ED and floor over the past few years, related often to injury falls. She was admitted earlier this month for a CHF exacerbation due to critical aortic stenosis. She has consultated tool distributor and decided against intervention given the risks, particularly concerned about the risk of another stroke increasing her debility. In the ED with evidence of CHF, small pleural effusions, increased leg swelling, as well as possible pneumonia and lower extremity cellulitis. She was given furosemide 40mg IV and a dose of IV Zosyn and amitted for further management and evaluation. Discharge Providers Provider Date of admission: 01/13/25 16:02 Discharge Date: 01/14/25 Primary care physician: Idalia Bashir MD Discharge provider: Simon Myers MD Summary Hospital Course Discharge Diagnosis: (1) Acute on chronic heart failure with preserved ejection fraction (HFpEF) due to critical aortic stenosis. (2) Nosocomial versus aspiration pneumonia. (3) Bilateral lower extremity cellulitis. (4) CKD (chronic kidney disease) stage 4, GFR 15-29 ml/min. (5) Lumbar spinal stenosis. (6) Stenosis of right carotid artery greater than 50%. (7) Hyperlipidemia. 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 Hospital Course: The patient was admitted to observation status and treated with IV furosemide and IV antibiotics. She improved significantly in terms of respiratory status and was interested in returning home. She states she had not spoken with her tool distributor about valve surgery in several years but would consider valve repair, e.g., TAVR, for her condition, planning diuretic therapy following discharge with torsemide. Cellulitis appeared improved as well and onoing outpatient antibiotics were advised. The patient acknowledged understanding, agreement and appreciation of this plan of care, and agreed to call back with any questions or concerns. Status at Discharge Cognitive/behavioral status at discharge: oriented Functional status at discharge: uses cane/walker Overall status at discharge: patient is progressing back to baseline Time Spent with Patient Time spent: Greater than 30 minutes Exam Vital Signs (past 8 hours): - 01/14/25 04:00 01/14/25 06:34 01/14/25 08:00 Temperature 96.3 F L Pulse Rate 74 74 76 Respiratory Rate 20 18 Blood Pressure 113/43 L 113/43 L 110/62 Pulse Oximetry 98 91 Oxygen Flow Rate 0 0 Oxygen Delivery Method Room Air Oxygen Flow Rate 0 Narrative Exam Narrative: GENERAL: This is a well-nourished, well-developed patient, in no apparent distress. HEAD: Atraumatic. Normocephalic. No temporal or scalp tenderness. EYES: Pupils equal round and reactive. Extraocular motions intact. No scleral icterus. No injection or drainage. ENT: Mucous membranes pink and moist. NECK: Trachea midline. No JVD, bruits or lymphadenopathy. Supple, nontender, no meningeal signs. CARDIOVASCULAR: Regular rate and rhythm with grade 3/6 SNOW at RUSB. RESPIRATORY: Decreased breath sounds lower lung knig with coarse crackles. GASTROINTESTINAL: Abdomen soft, non-tender, nondistended. EXTREMITIES: 1+ edema. BACK: Nontender without deformity or crepitance. No flank tenderness. NEUROLOGIC: Alert, oriented, speech fluent, full upper and lower motor strength, no focal deficits evident. DERMATOLOGIC: Improved erythema and induration and tenderness on the bilateral distal lower shins R>L Objective ECG Impression: Normal sinus rhythm at 74bpm, no ischemic changes. Imaging Echocardiogram 12/28/2024:: Radiologist's impression: Severe aortic stenosis. Normal LV size. Mildly reduced LV systolic function. LVEF is 45-50% Mild-moderate Mitral stenosis associated with mild to moderate mitral regurgitaiton. Other findings as below. When compared to TTE dated 12/20/22, aortic stenosis has progressed and LV is now starting to fail. Chest x-ray: Radiologist's impression: Interval increase in mild bibasilar consolidations, which may represent pneumonia. Consider aspiration as a possible etiology. Labs 01/14/25 05:02 01/14/25 05:02 Labs: Laboratory Results - last 24 hr 01/13/25 01/13/25 01/14/25 14:15 16:20 05:02 WBC 7.0 5.9 RBC 3.67 L 3.54 L Hgb 10.7 L 10.2 L Hct 32.4 L 31.0 L MCV 88.3 87.6 MCH 29.1 28.9 MCHC 32.9 33.0 RDW 16.0 H 15.9 H Plt Count 203 182 Neut % (Auto) 70.2 60.0 Lymph % (Auto) 17.9 L 23.0 L Charlotte % (Auto) 9.0 12.7 Eos % (Auto) 2.3 4.1 H Baso % (Auto) 0.6 0.2 Neut # (Auto) 4900 3500 Lymph # (Auto) 1300 1400 Charlotte # (Auto) 600 700 Eos # (Auto) 200 200 Baso # (Auto) 0 0 PT 11.7 INR 1.0 APTT 34 Sodium 139 139 Potassium 4.7 4.3 Chloride 107 105 Carbon Dioxide 23 25 BUN 25 H 27 H Creatinine 1.72 H 1.80 H Estimated GFR 28 L 27 L BUN/Creatinine Ratio 14.5 15.0 Glucose 102 97 Calcium 9.7 9.3 Magnesium 1.8 Total Bilirubin 0.7 AST 27 ALT 17 Alkaline Phosphatase 70 Total Creatine Kinase 207 H Troponin I 0.024 NT-Pro-B Natriuret Pep 59901 H Total Protein 7.9 Albumin 4.1 Globulin 3.8 Albumin/Globulin Ratio 1.1 Lipase 36 SARS-CoV-2 (PCR) Negative Influenza A (RT-PCR) Flu a negative Influenza B (RT-PCR) Flu b negative RSV (PCR) Negative [facility] Medical History Chronic sciatica of right side CVA (cerebral vascular accident) Degenerative disc disease Essential hypertension Functional incontinence History of CVA (cerebrovascular accident) History of non-ST elevation myocardial infarction (NSTEMI) Hyperlipidemia 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 Lumbar spinal stenosis Osteopenia Osteopenia Postmenopausal atrophic vaginitis Severe aortic stenosis Stenosis of right carotid artery greater than 50% Urge incontinence Surgical History History of bilateral breast reduction surgery History of cataract extraction with lens replacement History of cholecystectomy History of hysterectomy Family History Other Adopted (not a blood relative) Social History household members: none Smoking Status: Former smoker alcohol intake: current Discharge Plan Discharge Plan Patient Disposition: Home Transfer to: [facility] Living Provider Discharge Comment: Followup with Dr. dIalia Bashir 1 week; followup with Dr. Hutchins to discuss aortic valve replacement (TAVR) Discharge orders & Medications Prescriptions: New torsemide 20 mg tablet 20 mg PO DAILY Qty: 30 0RF amoxicillin-pot clavulanate 875-125 mg tablet 1 tab PO BID Qty: 12 0RF Continued sertraline 50 mg tablet 50 mg PO DAILY metoprolol succinate 25 mg tablet extended release 24 hr 12.5 mg PO BID levothyroxine 125 mcg tablet 125 mcg PO DAILY pantoprazole 40 mg tablet,delayed release (DR/EC) 40 mg PO DAILY alendronate 70 mg tablet 70 mg PO WEEKLY Rx Instructions: every wednesday oxybutynin chloride 5 mg tablet 5 mg PO BID clopidogrel 75 mg tablet 75 mg PO DAILY Patient Comments: For pumonary fibrosis gabapentin [Neurontin] 300 mg capsule 300 mg PO BID Rx Instructions: spinal stenosis lidocaine 5 % Adhesive Patch,Medicated 1 patch topical BEDTIME Qty: 15 0RF Rx Instructions: Left Rib acetaminophen 325 mg Tablet 650 mg PO Q6H PRN (Reason: Fever/Mild Pain (1-3)) Qty: 30 0RF albuterol sulfate 90 mcg/actuation HFA aerosol inhaler 2 puff INHALATION Q4HR Patient Comments: [NO ORIGINAL SIG] lisinopril 10 mg tablet 10 mg PO DAILY gabapentin [Neurontin] 100 mg Capsule 600 mg PO BEDTIME Discontinued hydrocodone-acetaminophen 5-325 mg tablet 1 tab PO Q8HR PRN (Reason: Severe Pain (Scale Score 7-10)) Follow up/Referrals: Idalia Bashir MD [Primary Care Provider] - Diet/Activity/Treatments Diet: Low-fat and Low-sodium Visit Report/Discharge Packet Stand Alone Forms: Patient Portal/API, Stroke Signs & Symptoms Discharge Data Primary Care Provider: Idalia Bashir Attending Provider: Simon Myers V Admit Date/Time: 01/13/25 16:02 Quality VTE Deep Vein Thrombosis/Pulmonary Embolism Present on Admission: No MIPS - Admit I confirm the patient?s Advance Care Plan is present, Code status is documented, Surrogate decision maker is in patient?s record [If Yes, STOP here]: Yes MIPS - Meds 'Current medications' to include all prescriptions, [id number] products, herbals, cannabis/cannabidiol products, and vitamin/mineral/dietary (nutritional) supplements. I have utilized all available resources to obtain, update, or review the patient?s current medications. [If Yes, STOP here]: Yes MIPS - DC The patient has a history of heart transplant or Left Ventricular Assist Device (LVAD). If yes, STOP here.: No The patient has current or prior documentation of left ventricular ejection fraction (LVEF) less than or equal to 40%, or moderate or severely depressed left ventricular systolic function.: No A. The patient was prescribed or already taking an Angiotensin-Converting Enzyme (NILA) Inhibitor, or Angiotensin Receptor Alka (ARB).: Yes B. The patient was prescribed or already taking a beta-alka. [If Yes to Both A & B, STOP here]: Yes Patient not prescribed/taking NILA or ARB, no reason given.: No Patient not prescribed/taking beta-alka, no reason given.: No PROFEE Charge Codes Discharge inpatient/observation: [id number]
--- NOTE | 2025-01-14 14:57 | CM.DANOTE ---
Patient is an 89 yo female who was admitted OBS Status on 01/13/25 for CHF, poss pneumonia, lower leg cellulitis. Pt has MCR and A[employer] for insurance and her PCP is Dr. Idalia Bashir. EMR was reviewed. Per MD, pt with hx of CVA with L hemiparesis and contractures along with gait imbalance that has increased her fall risk and admitted for CHF tx and now medically stable to d/c back to [facility] today if bp stable. Per RN, will continue to assess bp this afternoon to determine discharge vs remain overnight. Patient with hx of CVA in Aug 2024 and went to [facility] SN[facility] before discharging to [facility] as pt no longer safe at [facility] and too high of care needs. Pt was then admitted earlier this month December 2024 and discharged back maybe with [facility]. met bedside with pt and her POA Michela Rivas [phone] and discussed pt's need for TAVR procedure vs maybe Hospice referral as pt has historically declined TAVR and further procedures but today confirms her preference would be to pursue TAVR and not yet ready for comfort care/Hospice services. placed discharge orders in anticipation of pt being able to d/c back to [facility] later today. SW faxed clinicals, discharge summary, and signed med list to [facility] to review and left msg on RN phone with update on pt status. SW contacted [facility] and confirmed that pt is not current with them, she progressed and was discharged from services about a month ago. Plan: SW to follow closely for plan of discharge back to [facility] later today via family POV. ASH Jara Discharge Planning/Care Management CM Discharge Assessment Start: 01/14/25 14:50 Freq: Status: Active Protocol: Document 01/14/25 14:50 BF (Rec: 01/14/25 14:57 BF [id number]) Discharge Planning Assessment Assigned Silver Solderer ASH Winston DPOA/Assigned Designee Name Michela Rivas Contact Information [phone] Advance Directives? Yes: POLST Advance Directives on File No History Provided By Patient,Family Member,Medical Record Has Patient been admitted in last 30 No days? Comment Last admit Aug 2024 and went to [facility] and then early December 2024 went back to [facility] Prior Living Arrangements Assisted Living Comment [facility] Household Members none Type of transporation used prior to Relies on Others admit Facility Name Admitted From: [facility] Willing to Return to Facility? Yes Independent with ADL's No Is patient alert and oriented? Yes Needs Assistance With Meal Prep,Managing Medications ,Home Chores / Shopping Caregiver for Another No DME Already Rented / Owned Wheelchair,FWW / Walker Comment 4WW, adjustable bed Barriers to Discharge No Comment Return to [facility] Discharge Plan Assisted Living Facility Transportation Arrangement Family to transport, they are bedside Referrals Initiated None needed If patient plan is home with home health No : Has signed face to face form been completed? If patient plan is SNF: Has PASSR been No completed? Whiteboard Updated in Patient Room with Yes name and ext. # of Silver Solderer Review Status In Process Please Provide Date Initial DC 01/14/25 Assessment Was Performed Next Review Type Continued Stay Review
--- NOTE | 2025-01-14 15:17 | PC.NURSE ---
Patient is medically cleared for discharge back to [facility] today, however after a.m. Lasix dose this a.m. patient became hypotensive. BP aware BP ranging 70's- 80's over 30's-40's HR 50's. Patient denies feeling dizzy,n/v. while she is lying in bed today. MD aware of hypotension and encouraged po fluids. Ordered to discontinue lasix as well and continue to monitor BP. This afternoon BP this afternoon still remaining low and 84/48, HR 59. Legs of bed elevated and encouraged head down to improve BP. She is expressing she would prefer to discharge to [facility] tomorrow. Per Hospitalist patient may transport to [facility] when Systolic BP >100. Continuous monitoring.
[2025-01-14] MEDS: ATORVASTATIN 20 MG TABLET 80 MG PO (20:43)
[2025-01-14] MEDS: GABAPENTIN 300 MG CAPSULE 600 MG PO (20:43)
--- NOTE | 2025-01-15 01:27 | PC.NURSE ---
Pt has hypotensive at the beginning of the shift 01/14 at 1945 73/43 with a map of 55. pt asymptomatic speaking to this nurse. Nitroglycerin patch removed. BP now improving, night time metoprolol not given. continue with IV AB and monitoring BP.
[2025-01-15 03:00] VITALS: BP 97/48; PULSE 68; RESP 18; TEMP 36.3; O2SAT 92
[2025-01-15] MEDS: LEVOTHYROXINE 125 MCG TABLET PO (05:18)
[2025-01-15] MEDS: PIPERACILLIN/TAZO 3.375 GM in SODIUM CHLORIDE 0.9% 100 ML IV (05:18)
[2025-01-15 08:00] VITALS: BP 106/60; PULSE 76; RESP 18; TEMP 35.7; O2SAT 94
[2025-01-15] MEDS: SERTRALINE 50 MG TABLET PO (09:35)
[2025-01-15] MEDS: HEPARIN 5,000 UNIT/ML VIAL 5000 UNIT SUBCUT (09:35)
[2025-01-15] MEDS: CLOPIDOGREL 75 MG TABLET PO (09:35)
[2025-01-15] MEDS: PANTOPRAZOLE DR 40 MG TABLET PO (09:36)
[2025-01-15] MEDS: GABAPENTIN 300 MG CAPSULE PO ×2 (09:36→14:42)
[2025-01-15] MEDS: METOPROLOL ER 25 MG TABLET 12.5 MG PO (09:36)
[2025-01-15] MEDS: OXYBUTYNIN 5 MG TABLET PO (09:36)
[2025-01-15] MEDS: SODIUM CHLORIDE 0.9% FLUSH 10 ML IV (09:36)
[2025-01-15 10:19] VITALS: BP 98/32; PULSE 63
[2025-01-15 12:00] VITALS: BP 112/46; PULSE 67; RESP 16; TEMP 35.9; O2SAT 91
--- NOTE | 2025-01-15 13:08 | P.DS_ITS ---
History of Present Illness History of Present Illness Chief complaint: can't breathe, full of fluid Narrative: From H&P: 89 y/o resident of [facility] with PMH of severe , HTN, CKD, HFpEF, CVA with resultant Lt hemiparesis, impaired gait and balance and recurrent falls, presented to ED with worsening dyspnea. She had several vists to ED and floor over the past few years, related often to injury falls. She was admitted earlier this month for a CHF exacerbation due to critical aortic stenosis. She has consultated process architect and decided against intervention given the risks, particularly concerned about the risk of another stroke increasing her debility. In the ED with evidence of CHF, small pleural effusions, increased leg swelling, as well as possible pneumonia and lower extremity cellulitis. She was given furosemide 40mg IV and a dose of IV Zosyn and amitted for further management and evaluation. Discharge Providers Provider Date of admission: 01/13/25 16:02 Discharge Date: 01/15/25 Primary care physician: Idalia Bashir MD Consults: None. Discharge provider: Sean Singleton MD Summary Hospital Course Discharge Diagnosis: (1) Acute on chronic heart failure with preserved ejection fraction (HFpEF) due to critical aortic stenosis. (2) Nosocomial versus aspiration pneumonia. (3) Bilateral lower extremity cellulitis. (4) CKD (chronic kidney disease) stage 4, GFR 15-29 ml/min. (5) Lumbar spinal stenosis. (6) Stenosis of right carotid artery greater than 50%. (7) Hyperlipidemia. 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 Hospital Course: The patient was admitted to observation status and treated with IV furosemide and IV antibiotics. She improved significantly in terms of respiratory status and was interested in returning home. She states she had not spoken with her process architect about valve surgery in several years but would consider valve repair, e.g., TAVR, for her condition, planning diuretic therapy following discharge with torsemide. Cellulitis appeared improved as well and onoing outpatient antibiotics were advised. The patient acknowledged understanding, agreement and appreciation of this plan of care, and agreed to call back with any questions or concerns. 01/15: Met with the patient and her family. She has decided not to undergo any procedures and we will simply return to [facility] and initiate hospice at this point. All questions were answered and the family and the patient are both happy with her decision of not pursuing any further discussions of a TAVR. Status at Discharge Cognitive/behavioral status at discharge: oriented Functional status at discharge: uses cane/walker Overall status at discharge: patient is progressing back to baseline Time Spent with Patient Time spent: Greater than 30 minutes Exam Vital Signs (past 8 hours): - 01/15/25 08:00 01/15/25 10:19 01/15/25 12:00 Temperature 96.3 F L 96.7 F L Pulse Rate 76 63 67 Respiratory Rate 18 16 Blood Pressure 106/60 98/32 L 112/46 L Pulse Oximetry 94 91 Oxygen Flow Rate 0 0 Oxygen Delivery Method Room Air Oxygen Flow Rate 0 Narrative Exam Narrative: NAD, fluent speech, not on oxygen. Breathing normally, with a normal rate and effort. She was 2+ leg edema. Some ecchymosis on legs. Her abdomen is nondistended. Objective ECG Impression: Normal sinus rhythm at 74bpm, no ischemic changes. Imaging Multiple studies:: Radiologist's impression: Echocardiogram 12/28/2024: Radiologist's impression: Severe aortic stenosis. Normal LV size. Mildly reduced LV systolic function. LVEF is 45-50% Mild-moderate Mitral stenosis associated with mild to moderate mitral regurgitaiton. Other findings as below. When compared to TTE dated 12/20/22, aortic stenosis has progressed and LV is now starting to fail. Chest x-ray: Radiologist's impression: Interval increase in mild bibasilar consolidations, which may represent pneumonia. Consider aspiration as a possible etiology. 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 (2) Nosocomial versus aspiration pneumonia. (3) Bilateral lower extremity cellulitis. (4) CKD (chronic kidney disease) stage 4, GFR 15-29 ml/min. (5) Lumbar spinal stenosis. (6) Stenosis of right carotid artery greater than 50%. (7) Hyperlipidemia. 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 Plan of Treatment: Discharge back to [facility], we will stop antibiotics at this point is I feel this is most related to her aortic stenosis. The patient will pursue hospice care with an initiation scheduled for her assisted living residence. Patient was DNR. She was hoping to avoid any further trips back to the hospital and has decided against any further procedures including TAVR. Discharge Plan Discharge Plan Patient Disposition: Home Transfer to: [facility] Provider Discharge Comment: Followup with Dr. Idalia Bashir 1 week; followup with Dr. Hutchins to discuss aortic valve replacement (TAVR) Discharge orders & Medications Prescriptions: New furosemide [Lasix] 20 mg tablet 20 mg PO DAILY Qty: 30 1RF Continued sertraline 50 mg tablet 50 mg PO DAILY metoprolol succinate 25 mg tablet extended release 24 hr 12.5 mg PO BID levothyroxine 125 mcg tablet 125 mcg PO DAILY pantoprazole 40 mg tablet,delayed release (DR/EC) 40 mg PO DAILY alendronate 70 mg tablet 70 mg PO WEEKLY Rx Instructions: every wednesday oxybutynin chloride 5 mg tablet 5 mg PO BID clopidogrel 75 mg tablet 75 mg PO DAILY Patient Comments: For pumonary fibrosis gabapentin [Neurontin] 300 mg capsule 300 mg PO BID Rx Instructions: spinal stenosis lidocaine 5 % Adhesive Patch,Medicated 1 patch topical BEDTIME Qty: 15 0RF Rx Instructions: Left Rib acetaminophen 325 mg Tablet 650 mg PO Q6H PRN (Reason: Fever/Mild Pain (1-3)) Qty: 30 0RF albuterol sulfate 90 mcg/actuation HFA aerosol inhaler 2 puff INHALATION Q4HR Patient Comments: [NO ORIGINAL SIG] lisinopril 10 mg tablet 10 mg PO DAILY gabapentin [Neurontin] 100 mg Capsule 600 mg PO BEDTIME Discontinued hydrocodone-acetaminophen 5-325 mg tablet 1 tab PO Q8HR PRN (Reason: Severe Pain (Scale Score 7-10)) Follow up/Referrals: Idalia Bashir MD [Primary Care Provider] - Diet/Activity/Treatments Diet: Low-fat and Low-sodium Visit Report/Discharge Packet Instructions: DI for Aortic Stenosis, Furosemide Stand Alone Forms: Patient Portal/API Discharge Data Primary Care Provider: Idalia Bashir Attending Provider: Simon Myers V Admit Date/Time: 01/13/25 16:02 Quality VTE Deep Vein Thrombosis/Pulmonary Embolism Present on Admission: No
--- NOTE | 2025-01-15 14:37 | CM.DPC ---
DCP Discharge CARE HOME with Hospice Per MD, met bedside with pt and EDEINLSON Freeman [phone] and her spouse and they discussed pt's severe aortic stenosis and decision for pt to d/c back to [facility] with a new [facility] referral to get Hospice started. TERESO called [facility] staff Donna Medina and updated on pt discharge for today and refaxed the clinicals, signed med list, and d/c summary as they were not received yesterday as their internet was down. Donna confirms they can accept pt back, do not need bedside assessment, and no RN report number needed. They are appreciative of pt's Hospice referral. They cannot provide transport today and RN confirmed family agreeable to taking pt back today around 1500 and Donna in agreement. TERESO met bedside with pt, Edenilson Freeman and her spouse and explained role and they confirm they remain in agreement for above. Pt forgetful that she is discharging today but now agreeable again. SW provided [facility] brochure and Michela Freeman requests that Hospice call her for Info Visit and for Start of Care so she and spouse can come up from [place] to be present to sign pwk and meet training and development officer. Other EDENILSON iL is currently in [place] with her family on vacation and they have been keeping each other updated. TERESO made new [facility] referral and updated on POA contact for Info Visit and SOC and provided copy of [facility] pwk as well. RN updated and she provided discharge instructions and pt taken to POV to return to [facility] today with [facility] to follow. ASH Jara
[2025-01-15] MEDS: ACETAMINOPHEN 325 MG TABLET 650 MG PO (14:42)
== END 2025-01-15 15:04 | disposition home or self-care (01) ==
LOC: ED 15:07 → AC 16:02
PROVIDERS: Admitting Provider Internal Medicine; Emergency Provider Emergency Medicine; Family Provider Internal Medicine; PCP Internal Medicine; Referring Provider Emergency Medicine; Visit Provider Internal Medicine
DX: R07.9 Chest pain, unspecified (principal); I13.0 Hypertensive heart and chronic kidney disease with heart failure and stage 1 through stage 4 chronic kidney disease, or unspecified chronic kidney disease; I50.33 Acute on chronic diastolic (congestive) heart failure; I35.0 Nonrheumatic aortic (valve) stenosis; N18.4 Chronic kidney disease, stage 4 (severe); E06.3 Autoimmune thyroiditis; Z87.891 Personal history of nicotine dependence; I69.354 Hemiplegia and hemiparesis following cerebral infarction affecting left non-dominant side; I25.2 Old myocardial infarction; Z11.52 Encounter for screening for COVID-19; E78.5 Hyperlipidemia, unspecified; L03.116 Cellulitis of left lower limb; L03.115 Cellulitis of right lower limb; J18.9 Pneumonia, unspecified organism; Z91.81 History of falling; Z66 Do not resuscitate
CPT/HCPCS: 0241U; 36415; 71045; 80048; 80053; 82550; 83690; 83735; 83880; 84484; 85025; 85610; 85730; 87040; 93005; 94640; 96365; 96372; 96375; 99284; 99291; G0378; J1644; J1940; J2543; J7613

== ENCOUNTER 2025-01-24 10:52 | Emergency (ER) | payer MEDICARE, BC, SELFPAY ==
[2025-01-13 18:42] VITALS: BMI 37.5
[2025-01-24] VITALS (13 sets, daily range): BP systolic 50–113; BP diastolic 34–62; PULSE 8–97; RESP 0–26; O2SAT 70–94
--- NOTE | 2025-01-24 11:03 | ED_ITS ---
HPI - CPR General Chief Complaint: Cardiac Arrest/CPR Stated Complaint: Code Blue Time Seen by Provider: 01/24/25 10:57 Mode of arrival: EMS History of Present Illness HPI narrative: Patient is a 89-year-old female presenting today as CPR in. She has had 2 recent hospitalizations. History of severe aortic stenosis, hypertension chronic kidney disease, HFpEF, CVA has had several ED visits secondary to falls. She was admitted to the hospital January 13 and discharged on January 15, with acute on chronic heart failure due to critical aortic stenosis. It was discussed at the time for valve replacement however family declined. She was enrolled in hospice. She has a POLST form that says do not intubate but CPR okay and limited interventions. Reports that patient was okay this morning she was found down by staff EMS reports CPR started had 3 rounds of epinephrine and LMA was placed, due to do not intubate status. Got pulses back but then CPR restarted in ambulance and lost pulses again here. On exam she actually has femoral artery pulse. Related Data Home Medications Medication Instructions Recorded Confirmed clopidogrel 75 mg tablet 75 mg PO DAILY 03/27/23 01/13/25 gabapentin 300 mg capsule 300 mg PO BID 03/27/23 01/13/25 (Neurontin) alendronate 70 mg tablet 70 mg PO WEEKLY 06/02/24 01/13/25 levothyroxine 125 mcg tablet 125 mcg PO DAILY 06/02/24 01/13/25 metoprolol succinate 25 mg 12.5 mg PO BID 06/02/24 01/13/25 tablet,extended release 24 hr oxybutynin chloride 5 mg tablet 5 mg PO BID 06/02/24 01/13/25 pantoprazole 40 mg tablet,delayed 40 mg PO DAILY 06/02/24 01/13/25 release sertraline 50 mg tablet 50 mg PO DAILY 06/02/24 01/13/25 albuterol sulfate 90 mcg/actuation 2 puff inhalation Q4HR 12/28/24 01/13/25 aerosol inhaler gabapentin 100 mg capsule 600 mg PO BEDTIME 01/13/25 01/13/25 (Neurontin) lisinopril 10 mg tablet 10 mg PO DAILY 01/13/25 01/13/25 Previous Rx's Medication Instructions Recorded acetaminophen 325 mg tablet 650 mg (2 x 325 mg) PO Q6H PRN 09/13/24 Fever/Mild Pain (1-3) #30 tabs lidocaine 5 % topical patch 1 patch topical BEDTIME #15 ea 09/13/24 furosemide 20 mg tablet (Lasix) 20 mg PO DAILY #30 tabs 01/15/25 Allergies Allergy/AdvReac Type Severity Reaction Status Date / Time vibegron AdvReac Intermediate Rash Verified 01/13/25 13:57 Patient History Medical History Severe aortic stenosis Postmenopausal atrophic vaginitis Functional incontinence Urge incontinence Degenerative disc disease Lumbar spinal stenosis Stenosis of right carotid artery greater than 50% Chronic sciatica of right side Hyperlipidemia Osteopenia History of non-ST elevation myocardial infarction (NSTEMI) 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 Osteopenia Essential hypertension History of CVA (cerebrovascular accident) CVA (cerebral vascular accident) Surgical History History of hysterectomy History of cholecystectomy History of bilateral breast reduction surgery History of cataract extraction with lens replacement Family History Other Adopted (not a blood relative) Social History household members: none alcohol intake: current alcohol intake frequency: holidays/special occasions only Exam Initial Vital Signs Initial Vital Signs: Vital Signs Pulse Rate 85 01/24/25 10:53 Blood Pressure 79/51 L 01/24/25 10:53 Pulse Oximetry 70 L 01/24/25 10:53 Oxygen Delivery Method Ambu Bag 01/24/25 10:53 Gen.: Unresponsive cool pale HEENT left-sided hematoma without crepitations or depression Neck: No distended JVD Lungs: Breath sounds equal with ventilation Cardiac: Peripheral pulses intact ultrasound does show cardiac movement Abdomen: Soft Extremities, no gross bony deformities Neurologic: GCS 3 unresponsive Course Vital Signs Vital signs: Vital Signs - 8 hr 01/24/25 10:53 01/24/25 10:56 01/24/25 10:57 Pulse Rate 85 97 H 78 Respiratory Rate 26 H Blood Pressure 79/51 L Pulse Oximetry 70 L 76 L 82 L Oxygen Delivery Method Ambu Bag Ambu Bag Oxygen Flow Rate 15 15 01/24/25 10:57 01/24/25 10:58 01/24/25 10:59 Pulse Rate 73 66 Respiratory Rate 25 H 24 Blood Pressure 113/62 Pulse Oximetry 91 92 Oxygen Delivery Method Ambu Bag Ambu Bag Oxygen Flow Rate 15 15 01/24/25 10:59 01/24/25 11:00 01/24/25 11:00 Pulse Rate 65 Respiratory Rate 26 H Blood Pressure 79/51 L 81/45 L Pulse Oximetry 94 Oxygen Delivery Method Oxygen Flow Rate 01/24/25 11:02 01/24/25 11:03 01/24/25 11:03 Pulse Rate 47 L 46 L Respiratory Rate 15 22 Blood Pressure 50/34 L Pulse Oximetry 94 Oxygen Delivery Method Room Air Oxygen Flow Rate 01/24/25 11:04 01/24/25 11:06 01/24/25 11:08 Pulse Rate 33 L 21 L 28 L Respiratory Rate 11 L 12 9 L Blood Pressure Pulse Oximetry Oxygen Delivery Method Oxygen Flow Rate 01/24/25 11:10 01/24/25 11:12 Pulse Rate 17 L 8 L Respiratory Rate 0 L 0 L Blood Pressure Pulse Oximetry Oxygen Delivery Method Oxygen Flow Rate MDM - Cardiac Arrest/CPR MDM Narrative Medical decision making narrative: ACLS protocol followed. Patient did have pulses initially. I did speak with Michela BENDER, who recommended stopping all aggressive measures making her comfortable. No further CPR intubation. Time of 11:14 Called Michela Cardozo family back and notified her of the . States patient has a arrangements at [facility]. Discharge Plan Departure Patient Disposition: Clinical Impression: Congestive heart failure Date/Time: 01/24/25 11:14
--- NOTE | 2025-01-24 11:29 | PC.NURSE ---
Spoke w/ Jesús who reported that patient had an unwitnessed fall yesterday 01/23 where she hit the left side of her head. Hospice came out to see her at that time. Noted left forehead large hematoma.
--- NOTE | 2025-01-24 11:50 | PC.NURSE ---
EMS called to [facility] for pt w/ respiratory distress. Report to EMS from bedside personal was that pt was helped to bathroom, returned to bed and had sudden onset of respiratory distress, 911 called. EMS arrived to bedside, noted pt was pulseless, apneac, POLST stated + CPR, no intubation, no transport and was under hospice care. EMS confirmed + CPR w/ [facility] (spoke w/ Victoria). EMS states that they were at no time told of recent trauma. CPR was started w/ EPI x 4 and epi drip. Decision was made to transport and had ROSC during this time. Pt arrives w/ weak pulse, sinus arrymthmia, ambu resp, GCS 3, unresponsive to pain / noxious stimulus. Noted large hematoma to left side of head (see photo) Dr. Pinzon at bedside and called family (Michela Juliane) who confirmed pt was comfort measures only and that advanced life support should be discontinued. Pt made comfortable, staff w/ patient as she peacefully @ 1114. Called [facility] ask about recent trauma. They state pt had unwitnessed fall yesterday where she struck the left side of her head. They state that hospice came out to check on patient and there was no transport. Called [facility] @ 1133: Spoke w/ Nargis. . Declined related to age. [facility], spoke w/ Summer. Discussed above, recent trauma, hospice, conflicting POLST. She states she will call back with disposition. Alexis from [facility] called ([phone]) and states that neice (Michela Cardozo) called and stated that body can be picked up however this is on hold until [facility] calls back. He is aware and will wait for call.
--- NOTE | 2025-01-24 12:12 | PC.NURSE ---
[facility] called back: They state it will be a medical records review, Case # [id number]. Hospice will sign certificate. Cleared for release to [facility]. [facility] called, aware of certificate and will sampler pickup body.
== END 2025-01-24 12:30 | disposition expired ==
PROVIDERS: Emergency Provider Emergency Medicine; Family Provider Internal Medicine; PCP Internal Medicine
DX: I50.9 Heart failure, unspecified (principal)
CPT/HCPCS: 99284